=== PATIENT | female | born 1955 | race Caucasian/White ===

== ENCOUNTER 2018-05-02 20:06 | Emergency (ER) | payer MEDICARE, MEDICAID ==
[~2018-05-02] VITALS: Ht 165.1 cm; Wt 139.3 kg
[2018-05-02] MEDS ORDERED: ASPIRIN 81 MG CHEW (CHILDREN'S ASA) ONE (20:10)
[2018-05-02 20:26] LABS: BASOPHILS % (AUTO) 0 % (0-10); EOSINOPHILS # (AUTO) 0.3 10^3/uL (0.0-0.3); EOSINOPHILS % (AUTO) 3 % (0-10); HEMATOCRIT 39 % (35-52); HEMOGLOBIN 12.2 G/DL (11.5-16.0); LYMPHOCYTES # (AUTO) 2.5 X 10^3 (1.0-4.0); LYMPHOCYTES % (AUTO) 23 % (12-44); MEAN CORPUSCULAR HEMOGLOBIN 26 PG (25-34); MEAN CORPUSCULAR HGB CONC 31 G/DL (32-36); MEAN CORPUSCULAR VOLUME 84 FL (80-99); MEAN PLATELET VOLUME 9.7 FL (7.4-10.4); MONOCYTES # (AUTO) 0.8 X 10^3 (0.0-1.0); MONOCYTES % (AUTO) 7 % (0-12); NEUTROPHILS # (AUTO) 7.3 X 10^3 (1.8-7.8); NEUTROPHILS % (AUTO) 67 % (42-75); PLATELET COUNT 249 10^3/uL (130-400); RED BLOOD COUNT 4.62 10^6/uL (4.35-5.85); RED CELL DISTRIBUTION WIDTH 18.7 % (10.0-14.5); WHITE BLOOD COUNT 10.8 10^3/uL (4.3-11.0)
[2018-05-02] MEDS ORDERED: ASPIRIN 81 MG CHEW (CHILDREN'S ASA) PO ONE (20:30)
[2018-05-02] MEDS ORDERED: NITROGLYCERIN 0.4 MG SL TABS BTL 25'S SL PRN (20:30)
--- NOTE | 2018-05-02 20:35 | ED Chest Pain ---
General Chief Complaint: Chest Pain Stated Complaint: CP Source: patient Exam Limitations: no limitations History of Present Illness Date Seen by Provider: May 02, 2018 Time Seen by Provider: 20:05 Initial Comments Here with report of central chest pain that she reports is moderate to significant pressure that radiates to her left arm. Started at about 715 p.m. Denies nausea, vomiting, sweating but does report shortness of air. Does have history of COPD. Used to smoke 4 packs of cigarettes a day was down to 7 cigarettes a day now. Patient is a resident of [facility]. Reports taking medications as directed. Timing/Duration: 1 hour Severity/Quality: moderate, pressure Location: central Radiation: arms (left) Activities at Onset: none Prior CP/Workup: other (unknown) ASA po PUBLIC RELATIONS ASSOCIATE: No NTG SL PUBLIC RELATIONS ASSOCIATE: No Associated Symptoms: No abdominal pain, No back pain, No diaphoresis, No fever/ chills, No nausea/vomiting; shortness of breath; No weakness Allergies and Home Medications Allergies Coded Allergies: Cephalosporins (Verified Allergy, Unknown, 05/02/18) Penicillins (Verified Allergy, Unknown, 05/02/18) Sulfa (Sulfonamide Antibiotics) (Verified Allergy, Unknown, 05/02/18) cephalexin (Verified Allergy, Unknown, 05/02/18) codeine (Verified Allergy, Unknown, 05/02/18) diphenhydramine (Verified Allergy, Unknown, 05/02/18) erythromycin base (Verified Allergy, Unknown, 05/02/18) iodine (Verified Allergy, Unknown, 05/02/18) ketorolac (Verified Allergy, Unknown, 05/02/18) morphine (Verified Allergy, Unknown, 05/02/18) propoxyphene (Verified Allergy, Unknown, 05/02/18) tetracycline (Verified Allergy, Unknown, 05/02/18) Patient Home Medication List Home Medication List Reviewed: Yes Review of Systems Review of Systems Constitutional: see HPI; No chills, No fever EENTM: No Symptoms Reported Respiratory: See HPI Cardiovascular: See HPI Gastrointestinal: See HPI Genitourinary: No Symptoms Reported Musculoskeletal: see HPI, muscle pain; No muscle stiffness Skin: no symptoms reported All Other Systems Reviewed Negative Unless Noted: Yes Past Lfpuidc-Rcnfnq-Wezvid Hx Past Med/Social Hx: Reviewed Nursing Past Med/Soc Hx Patient Social History Alcohol Use: Denies Use Recreational Drug Use: No Smoking Status: Current Everyday Smoker Recent Foreign Travel: No Contact w/Someone Who Travel: No Past Medical History Surgeries: Yes Orthopedic Respiratory: Yes Chronic Bronchitis Cardiac: Yes Deep Vein Thrombosis, High Cholesterol, Hypertension Neurological: Yes Headaches /Migraines Genitourinary: No Gastrointestinal: Yes Gastroesophageal Reflux Musculoskeletal: Yes Endocrine: Yes Hypothyroidsim, Diabetes, Non-Insulin dep Psychosocial: Yes Anxiety, Bipolar Family Medical History Reviewed Nursing Family Hx No Pertinent Family Hx Physical Exam Vital Signs Vital Signs - First Documented 05/02/18 20:06 Pulse 77 Resp 23 B/P (MAP) 138/102 (114) Pulse Ox 95 O2 Delivery Room Air Capillary Refill : Height, Weight, BMI Height: '" Weight: lbs. oz. kg; BMI Method: General Appearance: No Apparent Distress, WD/WN, Obese HEENT: PERRL/EOMI, Pharynx Normal Neck: Non Tender, Supple Respiratory: No Respiratory Distress, Expiration, Wheezing (a few trace bilateral wheezes) Cardiovascular: Regular Rate, Rhythm, No Murmur Gastrointestinal: Non Tender, Soft Extremity: Normal Range of Motion, Non Tender Neurologic/Psychiatric: Alert, Oriented x3 Skin: Normal Color, Warm/Dry Progress/Results/Core Measures Results/Orders Lab Results Laboratory Tests Test 05/02/18 20:18 05/02/18 22:19 Range/Units White Blood Count 10.8 4.3-11.0 10^3/uL Red Blood Count 4.62 4.35-5.85 10^6/uL Hemoglobin 12.2 11.5-16.0 G/DL Hematocrit 39 35-52 % Mean Corpuscular Volume 84 80-99 FL Mean Corpuscular Hemoglobin 26 25-34 PG Mean Corpuscular Hemoglobin Concent 31 L 32-36 G/DL Red Cell Distribution Width 18.7 H 10.0-14.5 % Platelet Count 249 130-400 10^3/uL Mean Platelet Volume 9.7 7.4-10.4 FL Neutrophils (%) (Auto) 67 42-75 % Lymphocytes (%) (Auto) 23 12-44 % Monocytes (%) (Auto) 7 0-12 % Eosinophils (%) (Auto) 3 0-10 % Basophils (%) (Auto) 0 0-10 % Neutrophils # (Auto) 7.3 1.8-7.8 X 10^3 Lymphocytes # (Auto) 2.5 1.0-4.0 X 10^3 Monocytes # (Auto) 0.8 0.0-1.0 X 10^3 Eosinophils # (Auto) 0.3 0.0-0.3 10^3/uL Basophils # (Auto) 0.0 0.0-0.1 10^3/uL Prothrombin Time 13.3 12.2-14.7 SEC INR Comment 1.0 0.8-1.4 Activated Partial Thromboplast Time 28 24-35 SEC D-Dimer 0.69 H 0.00-0.49 UG/ML Sodium Level 142 135-145 MMOL/L Potassium Level 3.8 3.6-5.0 MMOL/L Chloride Level 109 H 98-107 MMOL/L Carbon Dioxide Level 24 21-32 MMOL/L Anion Gap 9 5-14 MMOL/L Blood Urea Nitrogen 9 7-18 MG/DL Creatinine 0.74 0.60-1.30 MG/DL Estimat Glomerular Filtration Rate > 60 BUN/Creatinine Ratio 12 Glucose Level 120 H 70-105 MG/DL Calcium Level 8.9 8.5-10.1 MG/DL Corrected Calcium 9.5 8.5-10.1 MG/DL Magnesium Level 2.2 1.8-2.4 MG/DL Total Bilirubin 0.3 0.1-1.0 MG/DL Aspartate Amino Transf (AST/SGOT) 29 5-34 U/L Alanine Aminotransferase (ALT/SGPT) 25 0-55 U/L Alkaline Phosphatase 141 H 40-136 U/L Myoglobin 26.2 10.0-92.0 NG/ML Troponin I < 0.30 < 0.30 <0.30 NG/ML Total Protein 7.1 6.4-8.2 GM/DL Albumin 3.3 3.2-4.5 GM/DL My Orders Orders - EDEL ANTHONY MD Cbc With Automated Diff (05/02/18 20:10) Magnesium (05/02/18 20:10) Chest 1 View, Ap/Pa Only (05/02/18 20:10) Ekg Tracing (05/02/18 20:10) Cardiac Profile 1 (05/02/18 20:10) Comprehensive Metabolic Panel (05/02/18 20:10) Myoglobin Serum (05/02/18 20:10) Protime With Inr (05/02/18 20:10) Partial Thromboplastin Time (05/02/18 20:10) O2 (05/02/18 20:10) Monitor-Rhythm Ecg Trace Only (05/02/18 20:10) Lipid Panel (05/03/18 06:00) Saline Lock/Iv-Start (05/02/18 20:10) Fibrin Degradation Products (05/02/18 20:10) Aspirin Chewable Tablet (Baby Aspirin Ch (05/02/18 20:10) Aspirin Chewable Tablet (Baby Aspirin Ch (05/02/18 20:30) Nitroglycerin 0.4 Mg Btl 25's (Nitrostat (05/02/18 20:30) Fentanyl Injection (Sublimaze Injection (05/02/18 20:53) Fentanyl Injection (Sublimaze Injection (05/02/18 21:00) Fentanyl Injection (Sublimaze Injection (05/02/18 22:14) Troponin I (05/02/18 22:14) Ekg Tracing (05/02/18 22:14) Medications Given in ED Current Medications Medications Dose Ordered Sig/Rufus Route Start Time Stop Time Status Last Admin Dose Admin Aspirin 324 mg ONCE ONCE PO 05/02/18 20:30 05/02/18 20:31 DC 05/02/18 20:13 324 MG Fentanyl Citrate 50 mcg ONCE ONCE IVP 05/02/18 21:00 05/02/18 21:01 DC 05/02/18 21:10 50 MCG Nitroglycerin 0.4 mg UD PRN SL 05/02/18 20:30 05/02/18 20:33 0.4 MG Vital Signs/I&O 05/02/18 20:06 Pulse 77 Resp 23 B/P (MAP) 138/102 (114) Pulse Ox 95 O2 Delivery Room Air Progress Progress Note : Progress Note Seen and evaluated. IV by EMS. Labs, EKG and chest x-ray ordered. ASA 324 mg by mouth ordered. Patient has stated aspirin intolerance that makes her stomach upset if she takes too long but not a true allergy. Nitroglycerin sublingual ordered for chest pain. Monitor patient. 2225: Patient did receive fentanyl earlier and a repeat fentanyl which appears to be in more for overall body aches. Overall she feels normal and back to normal health now. Patient does report that she did have heart With Dr. Suggs last year that was negative and has negative stress test as well. No significant findings on EKG or repeat labs. Discharged back to assisted with return precautions. Patient verbalize understanding instructions and agreement with plan. Initial ECG Impression Date: May 02, 2018 Initial ECG Impression Time: 20:08 Initial ECG Rate: 78 Initial ECG Rhythm: Normal Sinus Initial ECG Impression: Normal Initial ECG Comparisson: No Previous ECG Available Comment Sinus rhythm with normal axis. No evidence of ST elevation [place]. No previous available for comparison. Interpreted by me. EKG : EKG Time: 22:25 Rate: 73 Rhythm: Normal Sinus Intervals: Normal ECG Comparisson: Unchanged ECG Impression: Normal Comment Sinus rhythm with normal axis. No evidence of ST elevation [place]. Unchanged from previous. Interpreted by me. Diagnostic Imaging Diagonstic Imaging: Xray Plain Films/CT/US/NM/MRI: chest Comments No acute findings Reviewed: Reviewed by Me Departure Impression Primary Impression: Chest pain Qualified Codes: R07.9 - Chest pain, unspecified Disposition: 01 HOME, SELF-CARE Condition: Against Medical Advice Departure-Patient Inst. Decision time for Depature: 23:02 Patient Instructions: Chest Pain (DC) Add. Discharge Instructions: All discharge instructions reviewed with patient and/or family. Voiced understanding. Continue home medications as previously prescribed. You should follow-up with your early next week. You should follow up with your advance agent next week as well. Call for appointment. Return for worse pain, fever, vomiting, weakness, breathing problems or other concerns as needed. EDEL ANTHONY MD May 02, 2018 20:35
[2018-05-02 20:36] LABS: PROTHROMBIN TIME PATIENT 13.3 SEC (12.2-14.7)
[2018-05-02 20:41] LABS: ALANINE AMINOTRANSFERASE 25 U/L (0-55); ALBUMIN 3.3 GM/DL (3.2-4.5); ALKALINE PHOSPHATASE 141 U/L (40-136); BILIRUBIN,TOTAL 0.3 MG/DL (0.1-1.0); BUN/CREATININE RATIO 12; CALCIUM 8.9 MG/DL (8.5-10.1); CARBON DIOXIDE 24 MMOL/L (21-32); CHLORIDE 109 MMOL/L (98-107); CREATININE SERUM 0.74 MG/DL (0.60-1.30); GFR ESTIMATED > 60; GLUCOSE 120 MG/DL (70-105); MAGNESIUM 2.2 MG/DL (1.8-2.4); POTASSIUM 3.8 MMOL/L (3.6-5.0); SODIUM 142 MMOL/L (135-145); TOTAL PROTEIN 7.1 GM/DL (6.4-8.2)
--- NOTE | 2018-05-02 20:44 | Diagnostic Imaging Report ---
INDICATION: A 62-year-old female with shortness of breath and chest pain. COMPARISONS: None FINDINGS: Single view of the chest shows normal heart, pleura, and diaphragms. There is some mild central venous congestion. There is a few scattered alveolar infiltrates with some perihilar atelectatic infiltrates. Some discoid type atelectasis is seen in the right lower lobe. There is no large consolidations. There is no effusion or pneumothorax. The film is slightly underpenetrated. IMPRESSION: Mild congestive heart failure accentuated by the portable technique. There are superimposed scattered atelectatic type infiltrates but no significant consolidations. Dictated by: Dictated on workstation # [id number]
[2018-05-02 20:48] LABS: MYOGLOBIN SERUM 26.2 NG/ML (10.0-92.0)
[2018-05-02] MEDS ORDERED: fentaNYL INJECTION 100 MCG/2 ML AMP IVP STA ×2 (20:53→22:14)
[2018-05-02] MEDS ORDERED: fentaNYL INJECTION 100 MCG/2 ML AMP IVP ONE (21:00)
[2018-05-03 00:07] VITALS: BP 123/65
== END 2018-05-03 00:07 | disposition home or self-care (01) ==
LOC: ER 20:10
DX: R07.89 Other chest pain (principal); J44.9 Chronic obstructive pulmonary disease, unspecified; E78.00 Pure hypercholesterolemia, unspecified; I10 Essential (primary) hypertension; G43.909 Migraine, unspecified, not intractable, without status migrainosus; K21.9 Gastro-esophageal reflux disease without esophagitis; E03.9 Hypothyroidism, unspecified; F41.9 Anxiety disorder, unspecified; E11.9 Type 2 diabetes mellitus without complications; F31.9 Bipolar disorder, unspecified; F17.210 Nicotine dependence, cigarettes, uncomplicated; Z86.718 Personal history of other venous thrombosis and embolism; Z88.0 Allergy status to penicillin; Z88.2 Allergy status to sulfonamides; Z88.5 Allergy status to narcotic agent; Z91.041 Radiographic dye allergy status; Z88.8 Allergy status to other drugs, medicaments and biological substances; Z88.1 Allergy status to other antibiotic agents
CPT/HCPCS: 36415; 71045; 80053; 83735; 83874; 84484; 85025; 85379; 85610; 85730; 93005; 93041; 96374; 96376

== ENCOUNTER 2018-05-05 19:54 | Emergency (ER) | payer MEDICARE, MEDICAID ==
[~2018-05-05] VITALS: Ht 165.1 cm; Wt 139.3 kg
[2018-05-05] MEDS ORDERED: HYDROcodone/APAP 5 MG/325 MG (LORTAB) TAB PO ONE (20:15)
--- NOTE | 2018-05-05 20:36 | Diagnostic Imaging Report ---
EXAMINATION: Right knee radiographs, 3 views. COMPARISON: None. HISTORY: 62-year-old female, knee pain. FINDINGS: There is a right total knee prosthesis. The hardware appears intact. There is no periprosthetic lucency. There is no knee joint effusion. There is degenerative type enthesophyte formation at the insertion of the distal quadriceps tendon. There is no identified acute fracture. The bones appear somewhat demineralized. IMPRESSION: 1. Intact right total hip prosthesis without identified complication. 2. No otherwise identified acute bony abnormality. 3. The bones appear demineralized. Dictated by: Dictated on workstation # [id number]
--- NOTE | 2018-05-05 20:55 | ED Lower Extremity ---
General Chief Complaint: Lower Extremity Stated Complaint: L KNEE PAIN Nursing Triage Note: PRESENTS VIA EMS AFTER UNWITNESSED FALL IN ROOM AT [facility]. STATES SHE HEARD A "POP" AND IS WORRIED ABOUT THE ARTIFICIAL JOINT IN RIGHT KNEE. Nursing Sepsis Screen: No Definite Risk Source: patient, EMS Exam Limitations: no limitations History of Present Illness Date Seen by Provider: May 05, 2018 Time Seen by Provider: 19:55 Initial Comments Patient is a 62-year-old female who was brought to the emergency room by [facility] for an unwitnessed fall and right knee pain that occurred in her room at [facility]. The patient reports that she heard a pop and she is concerned with the artificial joint in her right knee. She denies hitting her head when she fell. Onset: just prior to arrival Pain/Injury Location: right knee Method of Injury: fell Modifying Factors: Worse With Movement Allergies and Home Medications Allergies Coded Allergies: Cephalosporins (Verified Allergy, Unknown, 05/02/18) Penicillins (Verified Allergy, Unknown, 05/02/18) Sulfa (Sulfonamide Antibiotics) (Verified Allergy, Unknown, 05/02/18) cephalexin (Verified Allergy, Unknown, 05/02/18) codeine (Verified Allergy, Unknown, 05/02/18) diphenhydramine (Verified Allergy, Unknown, 05/02/18) erythromycin base (Verified Allergy, Unknown, 05/02/18) iodine (Verified Allergy, Unknown, 05/02/18) ketorolac (Verified Allergy, Unknown, 05/02/18) morphine (Verified Allergy, Unknown, 05/02/18) propoxyphene (Verified Allergy, Unknown, 05/02/18) tetracycline (Verified Allergy, Unknown, 05/02/18) Patient Home Medication List Home Medication List Reviewed: Yes Review of Systems Constitutional: see HPI; No chills, No fever Musculoskeletal: see HPI, joint pain (right knee) All Other Systems Reviewed Negative Unless Noted: Yes Past Bsqxnbt-Ecluhm-Gvqyfw Hx Past Med/Social Hx: Reviewed Nursing Past Med/Soc Hx Patient Social History Alcohol Use: Denies Use Recreational Drug Use: No Smoking Status: Current Someday Smoker Recent Foreign Travel: No Contact w/Someone Who Travel: No Recent Infectious Disease Expo: No Recent Hopitalizations: No Seasonal Allergies Seasonal Allergies: No Past Medical History Surgeries: Yes Orthopedic Respiratory: Yes Chronic Bronchitis Cardiac: Yes Deep Vein Thrombosis, High Cholesterol, Hypertension Neurological: Yes Headaches /Migraines Genitourinary: No Gastrointestinal: Yes Gastroesophageal Reflux Musculoskeletal: Yes Endocrine: Yes Hypothyroidsim, Diabetes, Non-Insulin dep Psychosocial: Yes Anxiety, Bipolar Family Medical History Reviewed Nursing Family Hx No Pertinent Family Hx Physical Exam Vital Signs Capillary Refill : Less Than 3 Seconds Height, Weight, BMI Height: 5'5.00" Weight: 307lbs. oz. 139.360062ct; BMI Method:Stated General Appearance: WD/WN, no apparent distress Cardiovascular: normal peripheral pulses, regular rate, rhythm, no edema, no gallop, no JVD, no murmur Respiratory: chest non-tender, lungs clear, normal breath sounds, no respiratory distress, no accessory muscle use Knees: left knee non-tender; bilateral knee normal inspection; left knee normal range of motion, left knee no evidence of injury; right knee pain Neurologic/Tendon: normal sensation, normal motor functions, normal tendon functions, responds to pain Neurologic/Psychiatric: alert, normal mood/affect, oriented x 3 Skin: normal color, warm/dry Progress/Results/Core Measures Results/Orders My Orders Orders - TAM EPPERSON Knee, Right, 3 Views (05/05/18 19:58) Hydrocodone/Apap 5/325 Tablet (Lortab 5 (05/05/18 20:15) Medications Given in ED Vital Signs/I&O Blood Pressure Mean: 95 Progress Progress Note : Time: 21:00 Progress Note I have seen and evaluated the patient. I have addressed her pain. She was able to ambulate with minimal pain and without difficulty. She agrees with plans for discharge, transfer follow-up with Dr. Hutchison, return precautions are given. Diagnostic Imaging Diagonstic Imaging: Xray Plain Films/CT/US/NM/MRI: knee Comments NAME: CARY SHIN Daniel OROURKE REC#: [id number] PT STATUS: REG ER : 1955 PHYSICIAN: TAM EPPERSON ADMIT DATE: 05/05/18/ER Draft Date of Exam:05/05/18 KNEE, RIGHT, 3 VIEWS EXAMINATION: Right knee radiographs, 3 views. COMPARISON: None. HISTORY: 62-year-old female, knee pain. FINDINGS: There is a right total knee prosthesis. The hardware appears intact. There is no periprosthetic lucency. There is no knee joint effusion. There is degenerative type enthesophyte formation at the insertion of the distal quadriceps tendon. There is no identified acute fracture. The bones appear somewhat demineralized. IMPRESSION: 1. Intact right total hip prosthesis without identified complication. 2. No otherwise identified acute bony abnormality. 3. The bones appear demineralized. Dictated on workstation # [id number] Dict: 05/05/182026 Trans: 05/05/182034 [facility] [id number] Interpreted by: KATTY MORENO MD Electronically signed by: Reviewed: Reviewed by Me Departure Impression Primary Impression: Knee pain Disposition: HOME, SELF-CARE Condition: Stable/Unchanged Departure-Patient Inst. Decision time for Depature: 21:01 Referrals: ROSI HUTCHISON DO (PCP/Family) Primary Care Physician Patient Instructions: Knee Sprain (DC) Add. Discharge Instructions: Continue your home medications as previously prescribed. Follow-up with Dr. Hutchison within 1 week for recheck. Return back to the emergency room for any worsening symptoms or concerns as needed. All discharge instructions reviewed with patient and/or family. Voiced understanding. TAM EPPERSON May 05, 2018 20:55
[2018-05-05 21:12] VITALS: BP 141/73
== END 2018-05-05 21:14 | disposition home or self-care (01) ==
LOC: EDUNIT# 19:54 → ER 19:57
DX: M25.562 Pain in left knee (principal); E78.00 Pure hypercholesterolemia, unspecified; I10 Essential (primary) hypertension; G43.909 Migraine, unspecified, not intractable, without status migrainosus; K21.9 Gastro-esophageal reflux disease without esophagitis; E11.9 Type 2 diabetes mellitus without complications; F41.9 Anxiety disorder, unspecified; F32.9 Major depressive disorder, single episode, unspecified; E03.9 Hypothyroidism, unspecified; F17.200 Nicotine dependence, unspecified, uncomplicated; Z86.718 Personal history of other venous thrombosis and embolism; Z88.1 Allergy status to other antibiotic agents; Z88.0 Allergy status to penicillin; Z88.5 Allergy status to narcotic agent; Z91.041 Radiographic dye allergy status; Z88.8 Allergy status to other drugs, medicaments and biological substances; Z88.2 Allergy status to sulfonamides; W19.XXXA Unspecified fall, initial encounter; X50.1XXA Overexertion from prolonged static or awkward postures, initial encounter; Y92.199 Unspecified place in other specified residential institution as the place of occurrence of the external cause
CPT/HCPCS: 73562

== ENCOUNTER 2018-05-10 19:08 | Emergency (ER) | payer MEDICARE, MEDICAID ==
[~2018-05-10] VITALS: Ht 165.1 cm; Wt 136.5 kg
[2018-05-10 19:25] LABS: BASOPHILS # (AUTO) 0.1 10^3/uL (0.0-0.1); BASOPHILS % (AUTO) 1 % (0-10); EOSINOPHILS # (AUTO) 0.4 10^3/uL (0.0-0.3); EOSINOPHILS % (AUTO) 4 % (0-10); HEMATOCRIT 38 % (35-52); HEMOGLOBIN 11.8 G/DL (11.5-16.0); LYMPHOCYTES # (AUTO) 2.5 X 10^3 (1.0-4.0); LYMPHOCYTES % (AUTO) 26 % (12-44); MEAN CORPUSCULAR HEMOGLOBIN 27 PG (25-34); MEAN CORPUSCULAR HGB CONC 31 G/DL (32-36); MEAN CORPUSCULAR VOLUME 85 FL (80-99); MEAN PLATELET VOLUME 9.7 FL (7.4-10.4); MONOCYTES # (AUTO) 0.9 X 10^3 (0.0-1.0); MONOCYTES % (AUTO) 9 % (0-12); NEUTROPHILS % (AUTO) 61 % (42-75); PLATELET COUNT 236 10^3/uL (130-400); RED BLOOD COUNT 4.42 10^6/uL (4.35-5.85); RED CELL DISTRIBUTION WIDTH 18.6 % (10.0-14.5); WHITE BLOOD COUNT 9.9 10^3/uL (4.3-11.0)
[2018-05-10] MEDS ORDERED: fentaNYL INJECTION 100 MCG/2 ML AMP IVP ONE ×2 (19:30→20:15)
[2018-05-10 19:43] LABS: ALANINE AMINOTRANSFERASE 21 U/L (0-55); ALBUMIN 3.2 GM/DL (3.2-4.5); ALKALINE PHOSPHATASE 126 U/L (40-136); BILIRUBIN,TOTAL 0.2 MG/DL (0.1-1.0); BUN/CREATININE RATIO 16; CALCIUM 8.7 MG/DL (8.5-10.1); CARBON DIOXIDE 20 MMOL/L (21-32); CHLORIDE 111 MMOL/L (98-107); CREATININE SERUM 0.69 MG/DL (0.60-1.30); GFR ESTIMATED > 60; GLUCOSE 161 MG/DL (70-105); POTASSIUM 3.8 MMOL/L (3.6-5.0); SODIUM 141 MMOL/L (135-145); TOTAL PROTEIN 6.7 GM/DL (6.4-8.2)
--- NOTE | 2018-05-10 19:52 | Diagnostic Imaging Report ---
PROCEDURE: CT head and CT cervical spine without contrast. TECHNIQUE: Multiple contiguous axial images were obtained through the brain and cervical spine without the use of intravenous contrast. Sagittal and coronal reformations through the cervical spine were then performed. INDICATION: Syncope with fall. CT head: No hemorrhage, edema or mass effect is found. The basilar cisterns are patent. There is no sulcal effacement. There is parenchymal calcifications in the right thalamus as a chronic finding. No calvarial fracture deformity. No acute extra-axial fluid collection. No pneumocephalus. The sinuses nonacute with previous surgical resection of the medial maxillary grimes and ethmoidectomies. CT cervical spine: Body heights maintained, the alignment anatomic. The spinal canal patent. Facet relationships nonacute. No fracture or paravertebral hematoma and no convincing evidence for a substantial degree of stenosis. IMPRESSION: CT head: No hemorrhage, fracture or acute finding. Chronic parenchymal calcifications along the right thalamus anteroinferiorly noted. No posttraumatic sequelae. CT cervical spine: No fracture or traumatic malalignment. Dictated by: Dictated on workstation # [id number]
--- NOTE | 2018-05-10 19:53 | ED Fall/Injury ---
General Chief Complaint: Trauma-Non Activation Stated Complaint: GENERAL Nursing Triage Note: pt states "blacked out" fall. pt verbalized hit head on air conditoner. states neck and knee pain. Source: patient Exam Limitations: no limitations History of Present Illness Date Seen by Provider: May 10, 2018 Time Seen by Provider: 19:51 Initial Comments To ER with reports of having blacked out. She states that she stood up from her wheelchair to get into her electric chair and upon standing she collapsed to the floor after everything went black. She struck her head on the air conditioner. She is on Eliquis. She complains of head neck and left knee pain. Occurred: just prior to arrival Severity: moderate Injuries/Pain Location: head, neck, lower extremity Associated Symptoms (Fall): Headache, Neck Pain Allergies and Home Medications Allergies Coded Allergies: Cephalosporins (Verified Allergy, Unknown, 05/02/18) Penicillins (Verified Allergy, Unknown, 05/02/18) Sulfa (Sulfonamide Antibiotics) (Verified Allergy, Unknown, 05/02/18) cephalexin (Verified Allergy, Unknown, 05/02/18) codeine (Verified Allergy, Unknown, 05/02/18) diphenhydramine (Verified Allergy, Unknown, 05/02/18) erythromycin base (Verified Allergy, Unknown, 05/02/18) iodine (Verified Allergy, Unknown, 05/02/18) ketorolac (Verified Allergy, Unknown, 05/02/18) morphine (Verified Allergy, Unknown, 05/02/18) propoxyphene (Verified Allergy, Unknown, 05/02/18) tetracycline (Verified Allergy, Unknown, 05/02/18) Patient Home Medication List Home Medication List Reviewed: Yes Review of Systems Review of Systems Constitutional: see HPI Eyes: No Symptoms Reported Ears, Nose, Mouth, Throat: no symptoms reported Respiratory: no symptoms reported Cardiovascular: no symptoms reported Genitourinary: no symptoms reported Musculoskeletal: no symptoms reported Skin: no symptoms reported Psychiatric/Neurological: Headache Past Yyrqohp-Cdwlfh-[place]cau Hx Patient Social History Recent Foreign Travel: No Contact w/Someone Who Travel: No Recent Infectious Disease Expo: No Recent Hopitalizations: No Seasonal Allergies Seasonal Allergies: No Past Medical History Surgeries: Yes Orthopedic Respiratory: Yes Chronic Bronchitis Cardiac: Yes Deep Vein Thrombosis, High Cholesterol, Hypertension Neurological: Yes Headaches /Migraines Genitourinary: No Gastrointestinal: Yes Gastroesophageal Reflux Musculoskeletal: Yes Endocrine: Yes Hypothyroidsim, Diabetes, Non-Insulin dep Psychosocial: Yes Anxiety, Bipolar Family Medical History No Pertinent Family Hx Physical Exam Vital Signs Vital Signs - First Documented 05/10/18 19:18 Temp 98.0 Pulse 88 Resp 20 B/P (MAP) 170/95 (120) Pulse Ox 95 O2 Delivery Room Air Capillary Refill : Less Than 3 Seconds Height, Weight, BMI Height: 5'5.00" Weight: 301lbs. oz. 136.338827zh; BMI Method:Stated General Appearance: WD/WN, no apparent distress HEENT: PERRL/EOMI, normal ENT inspection Neck: full range of motion, tender midline, other (she is in a rigid cervical collar upon arrival to ER) Respiratory: normal breath sounds, no respiratory distress, no accessory muscle use Gastrointestinal: normal bowel sounds, non tender Extremities: normal range of motion, non-tender Neurologic/Psychiatric: alert, normal mood/affect, oriented x 3 Skin: normal color, warm/dry Aris Coma Score Best Eye Response: (4) Open Spontaneously Best Verbal Response: (5) Oriented Best Motor Response: (6) Obeys Commands [place] Total: 15 Progress/Results/Core Measures Results/Orders Lab Results Laboratory Tests Test 05/10/18 19:10 Range/Units White Blood Count 9.9 4.3-11.0 10^3/uL Red Blood Count 4.42 4.35-5.85 10^6/uL Hemoglobin 11.8 11.5-16.0 G/DL Hematocrit 38 35-52 % Mean Corpuscular Volume 85 80-99 FL Mean Corpuscular Hemoglobin 27 25-34 PG Mean Corpuscular Hemoglobin Concent 31 L 32-36 G/DL Red Cell Distribution Width 18.6 H 10.0-14.5 % Platelet Count 236 130-400 10^3/uL Mean Platelet Volume 9.7 7.4-10.4 FL Neutrophils (%) (Auto) 61 42-75 % Lymphocytes (%) (Auto) 26 12-44 % Monocytes (%) (Auto) 9 0-12 % Eosinophils (%) (Auto) 4 0-10 % Basophils (%) (Auto) 1 0-10 % Neutrophils # (Auto) 6.0 1.8-7.8 X 10^3 Lymphocytes # (Auto) 2.5 1.0-4.0 X 10^3 Monocytes # (Auto) 0.9 0.0-1.0 X 10^3 Eosinophils # (Auto) 0.4 H 0.0-0.3 10^3/uL Basophils # (Auto) 0.1 0.0-0.1 10^3/uL Sodium Level 141 135-145 MMOL/L Potassium Level 3.8 3.6-5.0 MMOL/L Chloride Level 111 H 98-107 MMOL/L Carbon Dioxide Level 20 L 21-32 MMOL/L Anion Gap 10 5-14 MMOL/L Blood Urea Nitrogen 11 7-18 MG/DL Creatinine 0.69 0.60-1.30 MG/DL Estimat Glomerular Filtration Rate > 60 BUN/Creatinine Ratio 16 Glucose Level 161 H 70-105 MG/DL Calcium Level 8.7 8.5-10.1 MG/DL Corrected Calcium 9.3 8.5-10.1 MG/DL Total Bilirubin 0.2 0.1-1.0 MG/DL Aspartate Amino Transf (AST/SGOT) 20 5-34 U/L Alanine Aminotransferase (ALT/SGPT) 21 0-55 U/L Alkaline Phosphatase 126 40-136 U/L Total Protein 6.7 6.4-8.2 GM/DL Albumin 3.2 3.2-4.5 GM/DL My Orders Orders - PRIYA ROUSE APRN Cbc With Automated Diff (05/10/18 19:19) Comprehensive Metabolic Panel (05/10/18 19:19) Iv Heplock-Insert (Order) (05/10/18 19:19) Ua Culture If Indicated (05/10/18 19:19) Ct Head/Cervical Spine Wo (05/10/18 19:19) Knee, Left, 3 Views (05/10/18 19:19) Fentanyl Injection (Sublimaze Injection (05/10/18 19:30) Fentanyl Injection (Sublimaze Injection (05/10/18 20:15) Vital Signs/I&O 05/10/18 19:18 Temp 98.0 Pulse 88 Resp 20 B/P (MAP) 170/95 (120) Pulse Ox 95 O2 Delivery Room Air Blood Pressure Mean: 120 Departure Communication (Admissions) 2002-cervical collar removed at this time after reviewing the CT report. Impression Primary Impression: Fall Additional Impressions: Orthostatic syncope Cervical sprain Disposition: HOME, SELF-CARE Condition: Stable Departure-Patient Inst. Decision time for Depature: 20:03 Referrals: ROSI HUTCHISON DO (PCP/Family) Primary Care Physician Patient Instructions: Cervical Muscle Strain, Minor Head Injury Add. Discharge Instructions: 1. Return to ER for any concerns 2. Follow-up with your doctor next week 3. All discharge instructions reviewed with patient and/or family. Voiced understanding. PRIYA ROUSE TEST [employer]ING [employer]IEF May 10, 2018 19:53
--- NOTE | 2018-05-10 19:59 | Diagnostic Imaging Report ---
INDICATION: Syncope with fall. FINDINGS: There is severe tricompartmental osteoarthritis of the knee. Lateral radiograph showed no evidence for joint effusion, the knee was held in near 90 degree flexion in the lateral view. The joint space narrowing, osteophytes and articular sclerosis involves all 3 compartments greatest at the medial tibiofemoral and patellofemoral spaces. IMPRESSION: Severe tricompartmental osteoarthritis but no fracture could be identified. Dictated by: Dictated on workstation # [id number]
[2018-05-10 20:55] LABS: BILIRUBIN,URINE NEGATIVE (NEGATIVE); CLARITY,URINE CLEAR; COLOR,URINE YELLOW; GLUCOSE, URINE (UA) NEGATIVE (NEGATIVE); KETONES,URINE NEGATIVE (NEGATIVE); LEUKOCYTE ESTERASE ,URINE NEGATIVE (NEGATIVE); NITRITE,URINE NEGATIVE (NEGATIVE); PH,URINE 7 (5-9); PROTEIN,URINE NEGATIVE (NEGATIVE); UROBILINOGEN,URINE 1 MG/DL (NORMAL)
[2018-05-10 21:09] LABS: SQUAMOUS EPITHELIAL CELL,UR 0-2 /HPF
[2018-05-10] MEDS ORDERED: ACETAMINOPHEN 500 MG TAB (TYLENOL) PO ONE (21:45)
[2018-05-10 21:52] VITALS: BP 143/74
== END 2018-05-10 21:49 | disposition home or self-care (01) ==
LOC: EDUNIT# 19:08 → ER 19:09
DX: S16.1XXA Strain of muscle, fascia and tendon at neck level, initial encounter (principal); R55 Syncope and collapse; M25.562 Pain in left knee; E78.00 Pure hypercholesterolemia, unspecified; I10 Essential (primary) hypertension; G43.909 Migraine, unspecified, not intractable, without status migrainosus; K21.9 Gastro-esophageal reflux disease without esophagitis; E11.9 Type 2 diabetes mellitus without complications; R40.2142 Coma scale, eyes open, spontaneous, at arrival to emergency department; R40.2252 Coma scale, best verbal response, oriented, at arrival to emergency department; R40.2362 Coma scale, best motor response, obeys commands, at arrival to emergency department; E03.9 Hypothyroidism, unspecified; Z86.718 Personal history of other venous thrombosis and embolism; Z79.01 Long term (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 of anticoagulants; Z88.0 Allergy status to penicillin; Z88.2 Allergy status to sulfonamides; Z88.1 Allergy status to other antibiotic agents; Z88.6 Allergy status to analgesic agent; Z88.4 Allergy status to anesthetic agent; Z88.8 Allergy status to other drugs, medicaments and biological substances; Z88.5 Allergy status to narcotic agent; V00.811A Fall from moving wheelchair (powered), initial encounter; W22.09XA Striking against other stationary object, initial encounter
CPT/HCPCS: 36415; 70450; 72125; 73562; 80053; 81000; 85025; 96374; 96376

== ENCOUNTER 2018-05-11 20:55 | Emergency (ER) | payer MEDICARE, MEDICAID ==
[~2018-05-11] VITALS: Ht 165.1 cm; Wt 136.5 kg
--- NOTE | 2018-05-11 21:07 | ED Neck-Back Pain/Injury ---
General Chief Complaint: Head/Cervical Problems Stated Complaint: NECK PAIN Source of Information: Patient, EMS Exam Limitations: No Limitations History of Present Illness Date Seen by Provider: May 11, 2018 Time Seen by Provider: 20:55 Initial Comments 62-year-old female who was brought to the emergency room by [facility] from [facility] to the emergency room with complaints of neck sprain and shadows around objects in her visual field. She reports that yesterday she was brought to the emergency room for a fall in which she hit that heating unit in her room with her head. She is on Eliquis. Immediately upon arrival to the emergency room by EMS she requested that the nursing staff started an IV and give her pain medication. Location: C-Spine Timing/Duration: 24 Hours Severity: Mild Pain/Injury Location: Head, Neck Method of Injury: Fall Associated Symptoms: denies symptoms Allergies and Home Medications Allergies Coded Allergies: Cephalosporins (Verified Allergy, Unknown, 05/02/18) Penicillins (Verified Allergy, Unknown, 05/02/18) Sulfa (Sulfonamide Antibiotics) (Verified Allergy, Unknown, 05/02/18) cephalexin (Verified Allergy, Unknown, 05/02/18) codeine (Verified Allergy, Unknown, 05/02/18) diphenhydramine (Verified Allergy, Unknown, 05/02/18) erythromycin base (Verified Allergy, Unknown, 05/02/18) iodine (Verified Allergy, Unknown, 05/02/18) ketorolac (Verified Allergy, Unknown, 05/02/18) morphine (Verified Allergy, Unknown, 05/02/18) propoxyphene (Verified Allergy, Unknown, 05/02/18) tetracycline (Verified Allergy, Unknown, 05/02/18) Patient Home Medication List Home Medication List Reviewed: Yes Review of Systems Constitutional: see HPI; No chills, No fever Musculoskeletal: see HPI, neck pain Psychiatric/Neurological: No Symptoms Reported, See HPI, Other (seeing shadows) All Other Systems Reviewed Negative Unless Noted: Yes Past Xcuggww-Eobxav-Vdsetj Hx Past Med/Social Hx: Reviewed Nursing Past Med/Soc Hx Patient Social History Alcohol Use: Denies Use Recreational Drug Use: No Recent Foreign Travel: No Contact w/Someone Who Travel: No Recent Hopitalizations: No Seasonal Allergies Seasonal Allergies: No Past Medical History Surgeries: Yes Orthopedic Respiratory: Yes Chronic Bronchitis Cardiac: Yes Deep Vein Thrombosis, High Cholesterol, Hypertension Neurological: Yes Headaches /Migraines Genitourinary: No Gastrointestinal: Yes Gastroesophageal Reflux Musculoskeletal: Yes Endocrine: Yes Hypothyroidsim, Diabetes, Non-Insulin dep Psychosocial: Yes Anxiety, Bipolar Family Medical History Reviewed Nursing Family Hx No Pertinent Family Hx Physical Exam Vital Signs Vital Signs - First Documented 05/11/18 05/11/18 20:55 22:46 Temp 98.8 Pulse 88 Resp 19 B/P (MAP) 130/73 (92) Pulse Ox 98 Capillary Refill : Height, Weight, BMI Height: 5'5.00" Weight: 301lbs. oz. 136.032481mx; BMI Method:Stated General Appearance: No Apparent Distress, WD/WN HEENT: PERRL/EOMI, TMs Normal, Normal ENT Inspection, Pharynx Normal Neck: Full Range of Motion, Normal Inspection, Non Tender, Supple Cardiovascular: Regular Rate, Rhythm, No Edema, No Gallop, No JVD, No Murmur, Normal Peripheral Pulses Respiratory: Chest Non Tender, Lungs Clear, Normal Breath Sounds, No Accessory Muscle Use, No Respiratory Distress, Accessory Muscle Use Neurologic/Psychiatric: Alert, Oriented x3, No Motor/Sensory Deficits Skin: Normal Color, Warm/Dry Initial NIH-0 Progress/Results/Core Measures Results/Orders My Orders Orders - TAM EPPERSON Ct Head/Cervical Spine Wo (05/11/18 21:01) Acetaminophen Tablet (Tylenol Tablet) (05/11/18 22:30) Medications Given in ED Current Medications Medications Dose Ordered Sig/Rufus Route Start Time Stop Time Status Last Admin Dose Admin Acetaminophen 1,000 mg ONCE ONCE PO 05/11/18 22:30 05/11/18 22:31 DC 05/11/18 22:25 1,000 MG Vital Signs/I&O 05/11/18 05/11/18 20:55 22:46 Temp 98.8 98.8 Pulse 88 88 Resp 19 19 B/P (MAP) 130/73 (92) 130/73 (92) Pulse Ox 98 Progress Progress Note : Time: 21:58 Progress Note I have seen and evaluated the patient. She is asking for narcotic pain medication (fentanyl) because it last for 24 hours. She reports that they gave her fentanyl last night. She has hydrocodone 10/325 at home and she denies taking any of her pain medication as prescribed. She agrees with plans for discharge, plans for close follow-up with Dr. Hutchison, return precautions were given. Diagnostic Imaging Diagonstic Imaging: CT Plain Films/CT/US/NM/MRI: c-spine, head Comments NAME: CARY SHIN [facility] REC#: [id number] PT STATUS: REG ER : 1955 PHYSICIAN: TAM EPPERSON ADMIT DATE: 05/11/18/ER Signed Date of Exam: 05/11/18 CT HEAD/CERVICAL SPINE WO PROCEDURE: CT head and CT cervical spine without contrast. TECHNIQUE: Multiple contiguous axial images were obtained through the brain and cervical spine without the use of intravenous contrast. Sagittal and coronal reformations through the cervical spine were then performed. INDICATION: Dizziness, falls. COMPARISON: 05/10/2018. CT HEAD: Chronic parenchymal calcifications in the right thalamus, unchanged. There is no intracerebral hemorrhage. No findings of focal or generalized cerebral edema. No mass or mass effect. Orbits, sinuses and calvarium appear nonacute. No change from previous exam. CT CERVICAL SPINE: Body heights are maintained. Alignment anatomic. No fracture or paravertebral hematoma. No change from prior. IMPRESSION: 1. CT head: Stable calcifications of right thalamus. No hemorrhage, edema or acute-appearing intracerebral pathology. No change from prior. 2. CT cervical spine: No fracture, traumatic malalignment or high-grade stenosis. No change from prior. Dictated by: Dictated on workstation # [id number] Dict: 05/11/182133 Trans: 05/11/182156 Interpreted by: RUFINO SIDHU Electronically signed by: RUFINO SIDHU 05/11/182156 Departure Impression Primary Impression: Cervical sprain Disposition: 01 HOME, SELF-CARE Condition: Stable/Unchanged Departure-Patient Inst. Decision time for Depature: 21:57 Referrals: ROSI HUTCHISON DO (PCP/Family) Primary Care Physician Patient Instructions: Cervical Muscle Strain (DC) Add. Discharge Instructions: Continue home medications as previously prescribed. Follow-up with her primary care provider within 1 week for recheck. Call first thing tomorrow morning for appointment time. Return back to the emergency room for any worsening symptoms or concerns as needed. All discharge instructions reviewed with patient and/or family. Voiced understanding. TAM EPPERSON May 11, 2018 21:07
--- NOTE | 2018-05-11 21:42 | Diagnostic Imaging Report ---
PROCEDURE: CT head and CT cervical spine without contrast. TECHNIQUE: Multiple contiguous axial images were obtained through the brain and cervical spine without the use of intravenous contrast. Sagittal and coronal reformations through the cervical spine were then performed. INDICATION: Dizziness, falls. COMPARISON: 05/10/2018. CT HEAD: Chronic parenchymal calcifications in the right thalamus, unchanged. There is no intracerebral hemorrhage. No findings of focal or generalized cerebral edema. No mass or mass effect. Orbits, sinuses and calvarium appear nonacute. No change from previous exam. CT CERVICAL SPINE: Body heights are maintained. Alignment anatomic. No fracture or paravertebral hematoma. No change from prior. IMPRESSION: 1. CT head: Stable calcifications of right thalamus. No hemorrhage, edema or acute-appearing intracerebral pathology. No change from prior. 2. CT cervical spine: No fracture, traumatic malalignment or high-grade stenosis. No change from prior. Dictated by: Dictated on workstation # [id number]
[2018-05-11] MEDS ORDERED: ACETAMINOPHEN 500 MG TAB (TYLENOL) PO ONE (22:30)
[2018-05-11 22:46] VITALS: BP 130/73
== END 2018-05-11 22:49 | disposition home or self-care (01) ==
LOC: EDUNIT# 20:55 → ER 20:56
DX: S13.4XXA Sprain of ligaments of cervical spine, initial encounter (principal); E78.00 Pure hypercholesterolemia, unspecified; I10 Essential (primary) hypertension; G43.909 Migraine, unspecified, not intractable, without status migrainosus; K21.9 Gastro-esophageal reflux disease without esophagitis; E03.9 Hypothyroidism, unspecified; E11.9 Type 2 diabetes mellitus without complications; F41.9 Anxiety disorder, unspecified; F32.9 Major depressive disorder, single episode, unspecified; Z88.0 Allergy status to penicillin; Z88.2 Allergy status to sulfonamides; Z88.4 Allergy status to anesthetic agent; Z88.8 Allergy status to other drugs, medicaments and biological substances; Z88.5 Allergy status to narcotic agent; Z88.1 Allergy status to other antibiotic agents; Z91.041 Radiographic dye allergy status; Z79.01 Long term (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 of anticoagulants; Z86.718 Personal history of other venous thrombosis and embolism; W19.XXXA Unspecified fall, initial encounter; W22.09XA Striking against other stationary object, initial encounter
CPT/HCPCS: 70450; 72125

== ENCOUNTER 2018-05-12 18:46 | Emergency (ER) | payer MEDICARE, MEDICAID ==
[~2018-05-12] VITALS: Ht 165.1 cm; Wt 136.5 kg
--- NOTE | 2018-05-12 18:59 | ED Chest Pain ---
General Chief Complaint: Chest Pain Stated Complaint: CHEST PAIN Source: patient Exam Limitations: no limitations History of Present Illness Date Seen by Provider: May 12, 2018 Time Seen by Provider: 18:56 Initial Comments To ER with left-sided chest pain that radiates down the left arm that began at 6 PM earlier today. She has chronic unchanged shortness of breath that is no worse than usual. She feels flushed but has no nausea. No chills. No nausea no vomiting. She just moved to the area from a senior living and [facility]. She moved here during the month of April and this will be her visit to the emergency room for a variety of complaints since moving here. Timing/Duration: constant Severity/Quality: moderate Location: central ASA po HAND MICA PLATE LAYER: No NTG SL HAND MICA PLATE LAYER: No Associated Symptoms: No abdominal pain, No back pain, No diaphoresis, No nausea /vomiting, No shortness of breath Allergies and Home Medications Allergies Coded Allergies: Cephalosporins (Verified Allergy, Unknown, 05/02/18) Penicillins (Verified Allergy, Unknown, 05/02/18) Sulfa (Sulfonamide Antibiotics) (Verified Allergy, Unknown, 05/02/18) aspirin (Verified Allergy, Unknown, 05/12/18) cephalexin (Verified Allergy, Unknown, 05/02/18) codeine (Verified Allergy, Unknown, 05/02/18) diphenhydramine (Verified Allergy, Unknown, 05/02/18) erythromycin base (Verified Allergy, Unknown, 05/02/18) iodine (Verified Allergy, Unknown, 05/02/18) ketorolac (Verified Allergy, Unknown, 05/02/18) morphine (Verified Allergy, Unknown, 05/02/18) propoxyphene (Verified Allergy, Unknown, 05/02/18) tetracycline (Verified Allergy, Unknown, 05/02/18) Patient Home Medication List Home Medication List Reviewed: Yes Review of Systems Review of Systems Constitutional: see HPI EENTM: No Symptoms Reported Respiratory: No Symptoms Reported Cardiovascular: See HPI, Chest Pain; Denies Edema, Denies Irregular Heart Rate , Denies Lightheadedness, Denies Palpitations Gastrointestinal: See HPI; Denies Nausea, Denies Vomiting Genitourinary: No Symptoms Reported Musculoskeletal: no symptoms reported Skin: no symptoms reported Psychiatric/Neurological: No Symptoms Reported Endocrine: No Symptoms Reported Hematologic/Lymphatic: No Symptoms Reported Past Qrqdpzx-Yyxyyt-Kbsrhu Hx Patient Social History Alcohol Use: Denies Use Recreational Drug Use: No Smoking Status: Current Everyday Smoker 2nd Hand Smoke Exposure: Yes Recent Foreign Travel: No Contact w/Someone Who Travel: No Recent Hopitalizations: No Immunizations Up To Date Tetanus Booster (TDap): Unknown Seasonal Allergies Seasonal Allergies: No Past Medical History Surgeries: Yes Orthopedic Respiratory: Yes Chronic Bronchitis Cardiac: Yes Deep Vein Thrombosis, High Cholesterol, Hypertension Neurological: Yes Headaches /Migraines Genitourinary: No Gastrointestinal: Yes Gastroesophageal Reflux Musculoskeletal: Yes Endocrine: Yes Hypothyroidsim, Diabetes, Non-Insulin dep HEENT: No Cancer: No Psychosocial: Yes Anxiety, Bipolar Integumentary: No Family Medical History No Pertinent Family Hx Physical Exam Vital Signs Vital Signs - First Documented 05/12/18 18:50 Pulse Ox 97 O2 Delivery Nasal Cannula O2 Flow Rate 2.00 Capillary Refill : Less Than 3 Seconds Height, Weight, BMI Height: 5'5.00" Weight: 301lbs. oz. 136.673873tf; BMI Method:Stated General Appearance: No Apparent Distress, WD/WN, Obese HEENT: PERRL/EOMI, TMs Normal Neck: Full Range of Motion, Normal Inspection Respiratory: No Accessory Muscle Use, No Respiratory Distress Cardiovascular: Regular Rate, Rhythm, Normal Peripheral Pulses Gastrointestinal: Normal Bowel Sounds, Non Tender, Soft Extremity: Normal Capillary Refill, Normal Inspection Neurologic/Psychiatric: Alert, Oriented x3 Skin: Normal Color, Warm/Dry Progress/Results/Core Measures Results/Orders Lab Results Laboratory Tests Test 05/12/18 18:50 Range/Units White Blood Count 10.6 4.3-11.0 10^3/uL Red Blood Count 4.65 4.35-5.85 10^6/uL Hemoglobin 12.3 11.5-16.0 G/DL Hematocrit 40 35-52 % Mean Corpuscular Volume 85 80-99 FL Mean Corpuscular Hemoglobin 27 25-34 PG Mean Corpuscular Hemoglobin Concent 31 L 32-36 G/DL Red Cell Distribution Width 18.7 H 10.0-14.5 % Platelet Count 248 130-400 10^3/uL Mean Platelet Volume 9.9 7.4-10.4 FL Neutrophils (%) (Auto) 62 42-75 % Lymphocytes (%) (Auto) 26 12-44 % Monocytes (%) (Auto) 8 0-12 % Eosinophils (%) (Auto) 3 0-10 % Basophils (%) (Auto) 0 0-10 % Neutrophils # (Auto) 6.6 1.8-7.8 X 10^3 Lymphocytes # (Auto) 2.7 1.0-4.0 X 10^3 Monocytes # (Auto) 0.9 0.0-1.0 X 10^3 Eosinophils # (Auto) 0.3 0.0-0.3 10^3/uL Basophils # (Auto) 0.0 0.0-0.1 10^3/uL Prothrombin Time 13.6 12.2-14.7 SEC INR Comment 1.0 0.8-1.4 Activated Partial Thromboplast Time 31 24-35 SEC Sodium Level 142 135-145 MMOL/L Potassium Level 4.4 3.6-5.0 MMOL/L Chloride Level 113 H 98-107 MMOL/L Carbon Dioxide Level 21 21-32 MMOL/L Anion Gap 8 5-14 MMOL/L Blood Urea Nitrogen 7 7-18 MG/DL Creatinine 0.72 0.60-1.30 MG/DL Estimat Glomerular Filtration Rate > 60 BUN/Creatinine Ratio 10 Glucose Level 193 H 70-105 MG/DL Calcium Level 8.7 8.5-10.1 MG/DL Corrected Calcium 9.2 8.5-10.1 MG/DL Magnesium Level 2.4 1.8-2.4 MG/DL Total Bilirubin 0.2 0.1-1.0 MG/DL Aspartate Amino Transf (AST/SGOT) 26 5-34 U/L Alanine Aminotransferase (ALT/SGPT) 22 0-55 U/L Alkaline Phosphatase 131 40-136 U/L Myoglobin 23.2 10.0-92.0 NG/ML Troponin I < 0.30 <0.30 NG/ML B-Type Natriuretic Peptide < 10.0 <100.0 PG/ML Total Protein 7.4 6.4-8.2 GM/DL Albumin 3.4 3.2-4.5 GM/DL Lipase 43 8-78 U/L My Orders Orders - PRIYA ROUSE RESEARCH CLERK Cbc With Automated Diff (05/12/18 18:55) Magnesium (05/12/18 18:55) Chest 1 View, Ap/Pa Only (05/12/18 18:55) Ekg Tracing (05/12/18 18:55) Cardiac Profile 1 (05/12/18 18:55) Comprehensive Metabolic Panel (05/12/18 18:55) Myoglobin Serum (05/12/18 18:55) Protime With Inr (05/12/18 18:55) Partial Thromboplastin Time (05/12/18 18:55) O2 (05/12/18 18:55) Monitor-Rhythm Ecg Trace Only (05/12/18 18:55) Lipid Panel (05/13/18 06:00) Aspirin Chewable Tablet (Baby Aspirin Ch (05/12/18 19:00) Saline Lock/Iv-Start (05/12/18 18:55) Lipase (05/12/18 18:55) BNP (05/12/18 18:55) Hydrocodone/Apap 5/325 Tablet (Lortab 5 (05/12/18 19:00) Medications Given in ED Current Medications Medications Dose Ordered Sig/Rufus Route Start Time Stop Time Status Last Admin Dose Admin Acetaminophen/ Hydrocodone Bitart 1 tab ONCE ONCE PO 05/12/18 19:00 05/12/18 19:01 DC 05/12/18 19:29 1 TAB Vital Signs/I&O 05/12/18 05/12/18 05/12/18 05/12/18 18:50 18:51 18:51 19:08 Temp 98.7 98.7 Pulse 88 Resp 18 B/P (MAP) 132/70 (90) Pulse Ox 97 97 O2 Delivery Nasal Cannula Nasal Cannula Nasal Cannula O2 Flow Rate 2.00 2.0 2.0 05/12/18 19:29 Temp 98.7 Initial ECG Impression Date: May 12, 2018 Initial ECG Impression Time: 18:58 Initial ECG Rate: 82 Initial ECG Rhythm: Normal Sinus Initial ECG Intervals: Normal Initial ECG Impression: Nonspecific Changes Comment No ST segment changes. Sinus rhythm no ectopy. Normal intervals. Departure Communication (Admissions) 2009-patient states that she is now having allergic reaction to the hydrocodone that she was given. She states that her tongue feels swollen and she is itching all over. After evaluating her, there is no swelling in the oropharynx, no swelling of the tongue hives. i did offer benadryl but she states that she is allergic to this and would like atarax instead. she asks that since she is allergic to the hydrocodone that she have something through her iv for pain. advised she will have tylenol offered Family Conversation NAME: CARY SHIN [facility] REC#: [id number] PT STATUS: REG ER : 1955 PHYSICIAN: PRIYA ROUSE APRN ADMIT DATE: 05/12/18/ER Draft Date of Exam:05/12/18 CHEST 1 VIEW, AP/PA ONLY INDICATION: Chest pain. FINDINGS: Portable chest. The lungs are well aerated and clear. Heart is not enlarged. There is no pulmonary edema. No hilar adenopathy. No pneumothorax or pleural effusion. IMPRESSION: There has been clearing of pulmonary congestive changes when compared with 05/02/2018. Heart size has returned to normal and the lungs are now clear. Dictated on workstation # [id number] Dict: 05/12/181909 Trans: 05/12/181912 [id number] Interpreted by: JOAQUIN WALSH MD Electronically signed by: [id number] was going to give aspirin patient informs us is allergic to aspirin as well. Please see additional allergies. Impression Primary Impression: Chest pain Disposition: 01 HOME, SELF-CARE Condition: Stable Departure-Patient Inst. Decision time for Depature: 20:10 Referrals: ROSI HUTCHISON DO (PCP/Family) Primary Care Physician Patient Instructions: Chest Pain (DC) Add. Discharge Instructions: 1. You may have itching as an adverse effect of hydrocodone, but you are not allergic to it. Follow-up with Dr. Dr. Hutchison to discuss a different medication to treat her pain. Return to ER for any concerns. PRIYA ROUSE APRN May 12, 2018 18:59
[2018-05-12] MEDS ORDERED: HYDROcodone/APAP 5 MG/325 MG (LORTAB) TAB PO ONE (19:00)
[2018-05-12] MEDS ORDERED: ASPIRIN 81 MG CHEW (CHILDREN'S ASA) PO ONE (19:00)
[2018-05-12 19:01] LABS: BASOPHILS % (AUTO) 0 % (0-10); EOSINOPHILS # (AUTO) 0.3 10^3/uL (0.0-0.3); EOSINOPHILS % (AUTO) 3 % (0-10); HEMATOCRIT 40 % (35-52); HEMOGLOBIN 12.3 G/DL (11.5-16.0); LYMPHOCYTES # (AUTO) 2.7 X 10^3 (1.0-4.0); LYMPHOCYTES % (AUTO) 26 % (12-44); MEAN CORPUSCULAR HEMOGLOBIN 27 PG (25-34); MEAN CORPUSCULAR HGB CONC 31 G/DL (32-36); MEAN CORPUSCULAR VOLUME 85 FL (80-99); MEAN PLATELET VOLUME 9.9 FL (7.4-10.4); MONOCYTES # (AUTO) 0.9 X 10^3 (0.0-1.0); MONOCYTES % (AUTO) 8 % (0-12); NEUTROPHILS # (AUTO) 6.6 X 10^3 (1.8-7.8); NEUTROPHILS % (AUTO) 62 % (42-75); PLATELET COUNT 248 10^3/uL (130-400); RED BLOOD COUNT 4.65 10^6/uL (4.35-5.85); RED CELL DISTRIBUTION WIDTH 18.7 % (10.0-14.5); WHITE BLOOD COUNT 10.6 10^3/uL (4.3-11.0)
[2018-05-12 19:11] LABS: PROTHROMBIN TIME PATIENT 13.6 SEC (12.2-14.7)
--- NOTE | 2018-05-12 19:13 | Diagnostic Imaging Report ---
INDICATION: Chest pain. FINDINGS: Portable chest. The lungs are well aerated and clear. Heart is not enlarged. There is no pulmonary edema. No hilar adenopathy. No pneumothorax or pleural effusion. IMPRESSION: There has been clearing of pulmonary congestive changes when compared with 05/02/2018. Heart size has returned to normal and the lungs are now clear. Dictated by: Dictated on workstation # [id number]
[2018-05-12 19:22] LABS: MYOGLOBIN SERUM 23.2 NG/ML (10.0-92.0)
[2018-05-12 19:23] LABS: ALANINE AMINOTRANSFERASE 22 U/L (0-55); ALBUMIN 3.4 GM/DL (3.2-4.5); ALKALINE PHOSPHATASE 131 U/L (40-136); BILIRUBIN,TOTAL 0.2 MG/DL (0.1-1.0); BUN/CREATININE RATIO 10; CALCIUM 8.7 MG/DL (8.5-10.1); CARBON DIOXIDE 21 MMOL/L (21-32); CHLORIDE 113 MMOL/L (98-107); CREATININE SERUM 0.72 MG/DL (0.60-1.30); GFR ESTIMATED > 60; GLUCOSE 193 MG/DL (70-105); LIPASE 43 U/L (8-78); MAGNESIUM 2.4 MG/DL (1.8-2.4); POTASSIUM 4.4 MMOL/L (3.6-5.0); SODIUM 142 MMOL/L (135-145); TOTAL PROTEIN 7.4 GM/DL (6.4-8.2)
[2018-05-12] MEDS ORDERED: ACETAMINOPHEN 500 MG TAB (TYLENOL) PO ONE (20:15)
[2018-05-12] MEDS ORDERED: hydrOXYzine (VISTARIL) 25 MG CAP PO ONE (20:15)
[2018-05-12 22:06] VITALS: BP 130/76
== END 2018-05-12 22:06 | disposition home or self-care (01) ==
LOC: EDUNIT# 18:46 → ER 18:47
DX: R07.89 Other chest pain (principal); E78.00 Pure hypercholesterolemia, unspecified; I10 Essential (primary) hypertension; G43.909 Migraine, unspecified, not intractable, without status migrainosus; K21.9 Gastro-esophageal reflux disease without esophagitis; E03.9 Hypothyroidism, unspecified; E11.9 Type 2 diabetes mellitus without complications; F41.9 Anxiety disorder, unspecified; F31.9 Bipolar disorder, unspecified; F17.200 Nicotine dependence, unspecified, uncomplicated; Z88.0 Allergy status to penicillin; Z86.718 Personal history of other venous thrombosis and embolism; Z88.2 Allergy status to sulfonamides; Z88.6 Allergy status to analgesic agent; Z88.8 Allergy status to other drugs, medicaments and biological substances; Z88.5 Allergy status to narcotic agent; Z88.1 Allergy status to other antibiotic agents; Z88.4 Allergy status to anesthetic agent; Z91.041 Radiographic dye allergy status
CPT/HCPCS: 36415; 71045; 80053; 83690; 83735; 83874; 83880; 84484; 85025; 85610; 85730; 93005; 93041

== ENCOUNTER 2018-05-23 18:33 | Emergency (ER) | payer MEDICARE, MEDICAID ==
[~2018-05-23] VITALS: Ht 165.1 cm; Wt 138.3 kg
[2018-05-23 18:34] VITALS: BP 107/66
--- NOTE | 2018-05-23 18:40 | ED Chest Pain ---
General Stated Complaint: CHEST PAIN L SIDE Source: patient Exam Limitations: no limitations History of Present Illness Date Seen by Provider: May 23, 2018 Time Seen by Provider: 18:37 Initial Comments To ER with left-sided sharp chest pain that began at 5:15 PM this evening while outside smoking a cigarette. She immediately put the cigarette out and went inside and told the nurse. She has no shortness of breath or nausea. Left anterior chest wall is very tender to palpation. Timing/Duration: 1-3 hours Severity/Quality: moderate Location: central Radiation: other (chest) ASA po SUBSTATION TECHNICIAN: No NTG SL SUBSTATION TECHNICIAN: Yes Associated Symptoms: No shortness of breath Allergies and Home Medications Allergies Coded Allergies: Cephalosporins (Verified Allergy, Unknown, 05/02/18) Penicillins (Verified Allergy, Unknown, 05/02/18) Sulfa (Sulfonamide Antibiotics) (Verified Allergy, Unknown, 05/02/18) aspirin (Verified Allergy, Unknown, 05/12/18) cephalexin (Verified Allergy, Unknown, 05/02/18) codeine (Verified Allergy, Unknown, 05/02/18) diphenhydramine (Verified Allergy, Unknown, 05/02/18) erythromycin base (Verified Allergy, Unknown, 05/02/18) iodine (Verified Allergy, Unknown, 05/02/18) ketorolac (Verified Allergy, Unknown, 05/02/18) morphine (Verified Allergy, Unknown, 05/02/18) propoxyphene (Verified Allergy, Unknown, 05/02/18) tetracycline (Verified Allergy, Unknown, 05/02/18) Patient Home Medication List Home Medication List Reviewed: Yes Review of Systems Review of Systems Constitutional: see HPI EENTM: No Symptoms Reported Respiratory: No Symptoms Reported Cardiovascular: See HPI, Chest Pain Gastrointestinal: No Symptoms Reported Genitourinary: No Symptoms Reported Musculoskeletal: no symptoms reported Skin: no symptoms reported Psychiatric/Neurological: No Symptoms Reported Endocrine: No Symptoms Reported Hematologic/Lymphatic: No Symptoms Reported Past Nykxzwd-Bffwwq-Bcawnm Hx Patient Social History 2nd Hand Smoke Exposure: Yes Recent Hopitalizations: No Immunizations Up To Date Tetanus Booster (TDap): Unknown Seasonal Allergies Seasonal Allergies: No Past Medical History Surgeries: Yes Orthopedic Respiratory: Yes Chronic Bronchitis Cardiac: Yes Deep Vein Thrombosis, High Cholesterol, Hypertension Neurological: Yes Headaches /Migraines Genitourinary: No Gastrointestinal: Yes Gastroesophageal Reflux Musculoskeletal: Yes Endocrine: Yes Hypothyroidsim, Diabetes, Non-Insulin dep HEENT: No Cancer: No Psychosocial: Yes Anxiety, Bipolar Integumentary: No Family Medical History No Pertinent Family Hx Physical Exam Vital Signs Vital Signs - First Documented 05/23/18 18:34 Temp 98.7 Pulse 89 Resp 19 B/P (MAP) 107/66 (80) Pulse Ox 95 O2 Delivery Room Air Capillary Refill : Height, Weight, BMI Height: 5'5.00" Weight: 301lbs. oz. 136.632033px; BMI Method:Stated General Appearance: No Apparent Distress, WD/WN, Obese HEENT: PERRL/EOMI, TMs Normal Neck: Full Range of Motion, Normal Inspection Respiratory: No Accessory Muscle Use, No Respiratory Distress, Other (left chest wall midclavicular line third intercostal space is very tender to palpation. Patient states "yeah, that's where it hurts".) Cardiovascular: Regular Rate, Rhythm, Normal Peripheral Pulses Gastrointestinal: Non Tender, Soft Extremity: Pedal Edema (bilateral lower extremity 2+) Neurologic/Psychiatric: Alert, Oriented x3 Skin: Normal Color, Warm/Dry Progress/Results/Core Measures Results/Orders Lab Results Laboratory Tests Test 05/23/18 18:37 Range/Units White Blood Count 11.1 H 4.3-11.0 10^3/uL Red Blood Count 4.55 4.35-5.85 10^6/uL Hemoglobin 12.3 11.5-16.0 G/DL Hematocrit 39 35-52 % Mean Corpuscular Volume 85 80-99 FL Mean Corpuscular Hemoglobin 27 25-34 PG Mean Corpuscular Hemoglobin Concent 32 32-36 G/DL Red Cell Distribution Width 18.7 H 10.0-14.5 % Platelet Count 261 130-400 10^3/uL Mean Platelet Volume 10.2 7.4-10.4 FL Neutrophils (%) (Auto) 61 42-75 % Lymphocytes (%) (Auto) 27 12-44 % Monocytes (%) (Auto) 9 0-12 % Eosinophils (%) (Auto) 3 0-10 % Basophils (%) (Auto) 0 0-10 % Neutrophils # (Auto) 6.8 1.8-7.8 X 10^3 Lymphocytes # (Auto) 3.0 1.0-4.0 X 10^3 Monocytes # (Auto) 1.0 0.0-1.0 X 10^3 Eosinophils # (Auto) 0.3 0.0-0.3 10^3/uL Basophils # (Auto) 0.1 0.0-0.1 10^3/uL Prothrombin Time 14.6 12.2-14.7 SEC INR Comment 1.1 0.8-1.4 Activated Partial Thromboplast Time 32 24-35 SEC Sodium Level 140 135-145 MMOL/L Potassium Level 3.8 3.6-5.0 MMOL/L Chloride Level 106 98-107 MMOL/L Carbon Dioxide Level 26 21-32 MMOL/L Anion Gap 8 5-14 MMOL/L Blood Urea Nitrogen 10 7-18 MG/DL Creatinine 0.78 0.60-1.30 MG/DL Estimat Glomerular Filtration Rate > 60 BUN/Creatinine Ratio 13 Glucose Level 98 70-105 MG/DL Calcium Level 9.0 8.5-10.1 MG/DL Corrected Calcium 9.3 8.5-10.1 MG/DL Magnesium Level 2.1 1.8-2.4 MG/DL Total Bilirubin 0.4 0.1-1.0 MG/DL Aspartate Amino Transf (AST/SGOT) 29 5-34 U/L Alanine Aminotransferase (ALT/SGPT) 27 0-55 U/L Alkaline Phosphatase 144 H 40-136 U/L Myoglobin 25.1 10.0-92.0 NG/ML Troponin I < 0.30 <0.30 NG/ML B-Type Natriuretic Peptide < 10.0 <100.0 PG/ML Total Protein 7.7 6.4-8.2 GM/DL Albumin 3.6 3.2-4.5 GM/DL My Orders Orders - PRIYA ROUSE APRN Cbc With Automated Diff (05/23/18 18:36) Magnesium (05/23/18 18:36) Chest 1 View, Ap/Pa Only (05/23/18 18:36) Ekg Tracing (05/23/18 18:36) Cardiac Profile 1 (05/23/18 18:36) Comprehensive Metabolic Panel (05/23/18 18:36) Myoglobin Serum (05/23/18 18:36) Protime With Inr (05/23/18 18:36) Partial Thromboplastin Time (05/23/18 18:36) O2 (05/23/18 18:36) Monitor-Rhythm Ecg Trace Only (05/23/18 18:36) Lipid Panel (05/24/18 06:00) Saline Lock/Iv-Start (05/23/18 18:36) BNP (05/23/18 18:36) Acetaminophen Tablet/Caplet (Tylenol T (05/23/18 18:45) Vital Signs/I&O 05/23/18 18:34 Temp 98.7 Pulse 89 Resp 19 B/P (MAP) 107/66 (80) Pulse Ox 95 O2 Delivery Room Air Departure Communication (Admissions) 1935-patient would request some fentanyl at this time because she states that it lasts for 24 hours. She didn't want aspirin initially because it makes her tired but the fentanyl should do just fine for her. Advised her that we should avoid opiates as she has requested opiates by name during each of her prior visits and this raises red flags. Advised her that we should repeat a troponin cardiac marker at the 4 hour jerome to ensure that this is not cardiac event. She states "oh I don't think it's my heart". She would like to sign out AGAINST MEDICAL ADVICE and go back to the custodial. Impression Primary Impression: Chest wall pain Disposition: ADMITTED INPATIENT Condition: Against Medical Advice Departure-Patient Inst. Decision time for Depature: 18:39 Referrals: ROSI HUTCHISON DO (PCP/Family) Primary Care Physician Patient Instructions: Chest Pain (DC) Add. Discharge Instructions: 1. Return to ER for any concerns 2. Call a patient account representative of your choosing next week. A list of local cardiologists has been provided. PRIYA ROUSE APRN May 23, 2018 18:40
[2018-05-23] MEDS ORDERED: ACETAMINOPHEN 325 MG TABLET PO ONE (18:45)
[2018-05-23 18:51] LABS: BASOPHILS # (AUTO) 0.1 10^3/uL (0.0-0.1); BASOPHILS % (AUTO) 0 % (0-10); EOSINOPHILS # (AUTO) 0.3 10^3/uL (0.0-0.3); EOSINOPHILS % (AUTO) 3 % (0-10); HEMATOCRIT 39 % (35-52); HEMOGLOBIN 12.3 G/DL (11.5-16.0); LYMPHOCYTES % (AUTO) 27 % (12-44); MEAN CORPUSCULAR HEMOGLOBIN 27 PG (25-34); MEAN CORPUSCULAR HGB CONC 32 G/DL (32-36); MEAN CORPUSCULAR VOLUME 85 FL (80-99); MEAN PLATELET VOLUME 10.2 FL (7.4-10.4); MONOCYTES % (AUTO) 9 % (0-12); NEUTROPHILS # (AUTO) 6.8 X 10^3 (1.8-7.8); NEUTROPHILS % (AUTO) 61 % (42-75); PLATELET COUNT 261 10^3/uL (130-400); RED BLOOD COUNT 4.55 10^6/uL (4.35-5.85); RED CELL DISTRIBUTION WIDTH 18.7 % (10.0-14.5); WHITE BLOOD COUNT 11.1 10^3/uL (4.3-11.0)
[2018-05-23 19:06] LABS: ALANINE AMINOTRANSFERASE 27 U/L (0-55); ALBUMIN 3.6 GM/DL (3.2-4.5); ALKALINE PHOSPHATASE 144 U/L (40-136); BILIRUBIN,TOTAL 0.4 MG/DL (0.1-1.0); BUN/CREATININE RATIO 13; CARBON DIOXIDE 26 MMOL/L (21-32); CHLORIDE 106 MMOL/L (98-107); CREATININE SERUM 0.78 MG/DL (0.60-1.30); GFR ESTIMATED > 60; GLUCOSE 98 MG/DL (70-105); MAGNESIUM 2.1 MG/DL (1.8-2.4); POTASSIUM 3.8 MMOL/L (3.6-5.0); SODIUM 140 MMOL/L (135-145); TOTAL PROTEIN 7.7 GM/DL (6.4-8.2)
[2018-05-23 19:12] LABS: INR 1.1 (0.8-1.4); MYOGLOBIN SERUM 25.1 NG/ML (10.0-92.0); PROTHROMBIN TIME PATIENT 14.6 SEC (12.2-14.7)
--- NOTE | 2018-05-23 19:12 | Diagnostic Imaging Report ---
INDICATION: Chest pain. EXAMINATION: Upright portable AP view of the chest is obtained. COMPARISON: Comparison is made to study of 05/12/2018. FINDINGS: Overall heart size and pulmonary vascularity are within normal limits. There is persistent fracture of the left seventh rib. No pneumothorax is identified. No definite pleural fluid is seen. IMPRESSION: Nonacute fracture involving left seventh rib. Otherwise, no acute abnormality or adverse change is seen. Dictated by: Dictated on workstation # [id number]
== END 2018-05-23 19:54 | disposition other institution (70) ==
LOC: ER 18:33 → EDUNIT# 18:33 → ER 19:54
DX: R07.89 Other chest pain (principal); E78.00 Pure hypercholesterolemia, unspecified; I10 Essential (primary) hypertension; G43.909 Migraine, unspecified, not intractable, without status migrainosus; K21.9 Gastro-esophageal reflux disease without esophagitis; E03.9 Hypothyroidism, unspecified; E11.9 Type 2 diabetes mellitus without complications; F41.9 Anxiety disorder, unspecified; F31.9 Bipolar disorder, unspecified; F17.210 Nicotine dependence, cigarettes, uncomplicated; Z86.718 Personal history of other venous thrombosis and embolism; Z87.09 Personal history of other diseases of the respiratory system; Z88.0 Allergy status to penicillin; Z88.2 Allergy status to sulfonamides; Z88.6 Allergy status to analgesic agent; Z88.8 Allergy status to other drugs, medicaments and biological substances; Z88.5 Allergy status to narcotic agent; Z88.1 Allergy status to other antibiotic agents; Z88.4 Allergy status to anesthetic agent; Z91.041 Radiographic dye allergy status
CPT/HCPCS: 36415; 71045; 80053; 83735; 83874; 83880; 84484; 85025; 85610; 85730; 93005; 93041

== ENCOUNTER 2018-05-30 16:30 | Emergency (ER) | payer MEDICARE, MEDICAID ==
[~2018-05-30] VITALS: Ht 165.1 cm; Wt 137.4 kg
--- NOTE | 2018-05-30 16:39 | ED Fall/Injury ---
General Chief Complaint: Trauma-Non Activation Stated Complaint: FALL Source: patient Exam Limitations: no limitations History of Present Illness Date Seen by Provider: May 30, 2018 Time Seen by Provider: 16:38 Initial Comments To ER per EMS from [facility] with reports of Low back and tailbone pain after a fall landing on her buttock. This occurred just prior to arrival. She believes that she's broken her tailbone. Occurred: just prior to arrival Severity: moderate Injuries/Pain Location: back Context: tripped Loss of Consciousness: no loss of consciousness Allergies and Home Medications Allergies Coded Allergies: Cephalosporins (Verified Allergy, Unknown, 05/02/18) Penicillins (Verified Allergy, Unknown, 05/02/18) Sulfa (Sulfonamide Antibiotics) (Verified Allergy, Unknown, 05/02/18) aspirin (Verified Allergy, Unknown, 05/12/18) cephalexin (Verified Allergy, Unknown, 05/02/18) codeine (Verified Allergy, Unknown, 05/02/18) diphenhydramine (Verified Allergy, Unknown, 05/02/18) erythromycin base (Verified Allergy, Unknown, 05/02/18) iodine (Verified Allergy, Unknown, 05/02/18) ketorolac (Verified Allergy, Unknown, 05/02/18) morphine (Verified Allergy, Unknown, 05/02/18) propoxyphene (Verified Allergy, Unknown, 05/02/18) tetracycline (Verified Allergy, Unknown, 05/02/18) Patient Home Medication List Home Medication List Reviewed: Yes Review of Systems Review of Systems Constitutional: see HPI Eyes: No Symptoms Reported Ears, Nose, Mouth, Throat: no symptoms reported Respiratory: no symptoms reported Cardiovascular: no symptoms reported Genitourinary: no symptoms reported Musculoskeletal: see HPI, back pain Skin: no symptoms reported Psychiatric/Neurological: No Symptoms Reported Past Lclnein-Wryfra-Zirztm Hx Patient Social History Type Used: Cigarettes 2nd Hand Smoke Exposure: Yes Recent Foreign Travel: No Contact w/Someone Who Travel: No Recent Hopitalizations: No Immunizations Up To Date Tetanus Booster (TDap): Unknown Seasonal Allergies Seasonal Allergies: No Past Medical History Surgeries: Yes Amputation, Hysterectomy, Orthopedic, Tubal Ligation Respiratory: Yes Chronic Bronchitis Cardiac: Yes Deep Vein Thrombosis, High Cholesterol, Hypertension Neurological: Yes Headaches /Migraines Genitourinary: No Gastrointestinal: Yes Gastroesophageal Reflux Musculoskeletal: Yes Endocrine: Yes Hypothyroidsim, Diabetes, Non-Insulin dep HEENT: No Cancer: No Psychosocial: Yes Anxiety, Bipolar Integumentary: No Blood Disorders: No Family Medical History No Pertinent Family Hx Physical Exam Vital Signs Vital Signs - First Documented 05/30/18 16:30 Temp 97.5 Pulse 85 Resp 18 B/P (MAP) 130/55 (80) Pulse Ox 94 Capillary Refill : Height, Weight, BMI Height: 5'5.00" Weight: 305lbs. oz. 138.296845rb; BMI Method:Stated General Appearance: WD/WN, no apparent distress HEENT: PERRL/EOMI, normal ENT inspection Respiratory: no respiratory distress, no accessory muscle use Gastrointestinal: normal bowel sounds, soft Extremities: normal range of motion, non-tender Neurologic/Psychiatric: alert, normal mood/affect Skin: normal color, warm/dry, other (patient was rolled onto her side with Maury RN at the bedside, , back was examined. There is no erythema ecchymosis abrasion or other sign of injury to the areas of pain.) Aris Coma Score Best Eye Response: (4) Open Spontaneously Best Verbal Response: (5) Oriented Best Motor Response: (6) Obeys Commands [place] Total: 15 Progress/Results/Core Measures Results/Orders My Orders Orders - PRIYA ROUSE APRN Ct Lumbar Spine Wo (05/30/18 16:37) Ct Pelvis Wo (05/30/18 16:51) Vital Signs/I&O 05/30/18 16:30 Temp 97.5 Pulse 85 Resp 18 B/P (MAP) 130/55 (80) Pulse Ox 94 Departure Impression Primary Impression: Coccyx contusion Disposition: XFER SNF Condition: Stable Departure-Patient Inst. Decision time for Depature: 16:39 Referrals: ROSI HUTCHISON DO (PCP/Family) Primary Care Physician Patient Instructions: Contusion (DC) Add. Discharge Instructions: All discharge instructions reviewed with patient and/or family. Voiced understanding. Copy Copies To 1: ROSI HUTCHISON PETER J APRN May 30, 2018 16:39
--- NOTE | 2018-05-30 17:24 | Diagnostic Imaging Report ---
PROCEDURE: CT lumbar spine without contrast. TECHNIQUE: Multiple contiguous axial images were obtained through the lumbar spine without the use of intravenous contrast. Sagittal and coronal reformations were then performed. INDICATION: Fall, back pain. COMPARISON: None. FINDINGS: Alignment of the lumbar column is normal. There is no obvious subluxation or fracture. Kvakmmrp-kg-heiklk degenerative changes are seen throughout the disc spaces and facet joints. There is no paraspinous mass or hematoma. The SI joints are symmetric. IMPRESSION: 1. Please note, the examination is limited due to patient body habitus. 2. No traumatic malalignment or obvious fracture. If symptoms continue, consider MRI. Dictated by: Dictated on workstation # [id number]
--- NOTE | 2018-05-30 17:30 | Diagnostic Imaging Report ---
PROCEDURE: CT pelvis without contrast. TECHNIQUE: Multiple contiguous axial images were obtained through the pelvis without the use of intravenous contrast. Sagittal and coronal reformations were performed. INDICATION: Back pain. COMPARISON: None. FINDINGS: Please note, the sacrum and SI joints were imaged. Partial visualization of the pelvis is present. There is no obvious fracture or osseous lesion. SI joints are symmetric. The visualized coccyx is unremarkable. Please note, the imaging detail is suboptimal due to patient body habitus. IMPRESSION: No obvious traumatic malalignment or fracture of the sacrum and coccyx. Dictated by: Dictated on workstation # [id number]
[2018-05-30 17:55] VITALS: BP 130/55
== END 2018-05-30 17:56 ==
LOC: EDUNIT# 16:32 → ER 16:35
DX: S30.0XXA Contusion of lower back and pelvis, initial encounter (principal); I10 Essential (primary) hypertension; E03.9 Hypothyroidism, unspecified; E11.9 Type 2 diabetes mellitus without complications; F41.9 Anxiety disorder, unspecified; F32.9 Major depressive disorder, single episode, unspecified; G43.909 Migraine, unspecified, not intractable, without status migrainosus; R40.2142 Coma scale, eyes open, spontaneous, at arrival to emergency department; R40.2252 Coma scale, best verbal response, oriented, at arrival to emergency department; R40.2362 Coma scale, best motor response, obeys commands, at arrival to emergency department; E78.00 Pure hypercholesterolemia, unspecified; Z88.0 Allergy status to penicillin; Z88.1 Allergy status to other antibiotic agents; Z88.6 Allergy status to analgesic agent; Z88.2 Allergy status to sulfonamides; Z88.8 Allergy status to other drugs, medicaments and biological substances; Z88.4 Allergy status to anesthetic agent; Z88.5 Allergy status to narcotic agent; Z91.041 Radiographic dye allergy status; Z77.22 Contact with and (suspected) exposure to environmental tobacco smoke (acute) (chronic); Z98.51 Tubal ligation status; Z90.710 Acquired absence of both cervix and uterus; Z86.718 Personal history of other venous thrombosis and embolism; Z87.09 Personal history of other diseases of the respiratory system; W01.0XXA Fall on same level from slipping, tripping and stumbling without subsequent striking against object, initial encounter
CPT/HCPCS: 72131; 72192

== ENCOUNTER 2018-06-08 19:33 | Emergency (ER) | payer MEDICARE, MEDICAID ==
[~2018-06-08] VITALS: Ht 165.1 cm; Wt 137.4 kg
--- NOTE | 2018-06-08 19:46 | ED Head Injury ---
General Stated Complaint: FALL Source: patient, EMS Exam Limitations: no limitations History of Present Illness Date Seen by Provider: Jun 08, 2018 Time Seen by Provider: 19:41 Initial Comments Patient is a 62-year-old female who was brought to the emergency room from [facility] by [facility] with reports of falling backwards in her chair and hitting her head on her oxygen tank. She also reports right knee pain from the fall. She reports when she fell striking her head she did feel a pop in her neck. Denies loss of consciousness, numbness or tingling in any extremity. Patient does have a c-collar in place on arrival to the emergency room. EMS reports that the [facility] told them she was drug seeking and has had numerous visits to the emergency room for vague symptoms of pain. Occurred: just prior to arrival Severity: mild Location: occipital Method of Injury: fell Loss of Consciousness: no loss of consciousness Associated Systoms: Other (neck pain) Allergies and Home Medications Allergies Coded Allergies: Cephalosporins (Verified Allergy, Unknown, 05/02/18) Penicillins (Verified Allergy, Unknown, 05/02/18) Sulfa (Sulfonamide Antibiotics) (Verified Allergy, Unknown, 05/02/18) aspirin (Verified Allergy, Unknown, 05/12/18) cephalexin (Verified Allergy, Unknown, 05/02/18) codeine (Verified Allergy, Unknown, 05/02/18) diphenhydramine (Verified Allergy, Unknown, 05/02/18) erythromycin base (Verified Allergy, Unknown, 05/02/18) iodine (Verified Allergy, Unknown, 05/02/18) ketorolac (Verified Allergy, Unknown, 05/02/18) morphine (Verified Allergy, Unknown, 05/02/18) propoxyphene (Verified Allergy, Unknown, 05/02/18) tetracycline (Verified Allergy, Unknown, 05/02/18) Patient Home Medication List Home Medication List Reviewed: Yes Review of Systems Review of Systems Constitutional: see HPI; No chills, No fever Musculoskeletal: see HPI, joint pain (right knee pain), neck pain All Other Systems Reviewed Negative Unless Noted: Yes Past Kricxvk-Wpomdz-Wdrnaw Hx Past Med/Social Hx: Reviewed Nursing Past Med/Soc Hx Patient Social History Type Used: Cigarettes 2nd Hand Smoke Exposure: Yes Recent Foreign Travel: No Contact w/Someone Who Travel: No Recent Hopitalizations: No Immunizations Up To Date Tetanus Booster (TDap): Unknown Seasonal Allergies Seasonal Allergies: No Past Medical History Surgeries: Yes Amputation, Hysterectomy, Orthopedic, Tubal Ligation Respiratory: Yes Chronic Bronchitis Cardiac: Yes Deep Vein Thrombosis, High Cholesterol, Hypertension Neurological: Yes Headaches /Migraines Genitourinary: No Gastrointestinal: Yes Gastroesophageal Reflux Musculoskeletal: Yes Endocrine: Yes Hypothyroidsim, Diabetes, Non-Insulin dep HEENT: No Cancer: No Psychosocial: Yes Anxiety, Bipolar Integumentary: No Blood Disorders: No Family Medical History Reviewed Nursing Family Hx No Pertinent Family Hx Physical Exam Vital Signs Vital Signs - First Documented 06/08/18 19:33 Temp 97.6 Pulse 78 Resp 18 B/P (MAP) 139/79 (99) Pulse Ox 95 O2 Delivery Room Air Capillary Refill : Height, Weight, BMI Height: 5'5.00" Weight: 303lbs. oz. 137.267162vi; BMI Method:Stated General Appearance: WD/WN, no apparent distress Neck: normal inspection, tender midline Cardiovascular: normal peripheral pulses, regular rate, rhythm, no edema, no gallop, no JVD, no murmur Respiratory: chest non-tender, lungs clear, normal breath sounds, no respiratory distress, no accessory muscle use Back: normal inspection, no CVA tenderness, no vertebral tenderness Extremities: normal range of motion, normal inspection, no pedal edema, no calf tenderness, normal capillary refill, other Psychiatric: alert, oriented x 3 Crainal Nerves: normal hearing, normal speech, PERRL Coordination/Gait: normal finger to nose Skin: normal color, warm/dry Aris Coma Score Best Eye Response: (4) Open Spontaneously Best Verbal Response: (5) Oriented Best Motor Response: (6) Obeys Commands Aris Total: 15 Images 1 - Pain 2 - Pain Progress/Results/Core Measures Results/Orders My Orders Vital Signs/I&O Progress Progress Note : Time: 20:29 Progress Note I seen and evaluated the patient. I've informed her of normal CT studies of her head and neck and her c-collar was removed at this time. I have addressed her pain. She agrees with plan of care, plans for discharge, return precautions were given. Patient requested taxi ride home. Taxi was called. Voices no questions or concerns. Diagnostic Imaging Diagonstic Imaging: Xray, CT Plain Films/CT/US/NM/MRI: c-spine, knee, head Comments NAME: KWADWO SHINYN [facility] REC#: [id number] PHYSICIAN: TAM EPPERSON CC: TAM EPPERSON; LATASHA OROZCO MD Page 1 of 1 RADIOLOGY REPORT VIA [facility], [facility]. [place] CC: TAM EPPERSON; LATASHA OROZCO MD Page 1 of 1 RADIOLOGY REPORT NAME: KWADWO SHINYN [facility] REC#: [id number] PT STATUS: REG ER : 1955 PHYSICIAN: TAM EPPERSON ADMIT DATE: 06/08/18/ER Signed Date of Exam: 06/08/18 CT HEAD/CERVICAL SPINE WO PROCEDURE: CT head and CT cervical spine without contrast. TECHNIQUE: Multiple contiguous axial images were obtained through the brain and cervical spine without the use of intravenous contrast. Sagittal and coronal reformations through the cervical spine were then performed. INDICATION: Fell and hit her head The ventricles are normal in size, shape and position. There is no acute parenchymal edema, hemorrhage or mass. There is no extra-axial mass or hemorrhage. There is no acute bony abnormality. There is no change from 05/11/2018. There is normal height and alignment of the cervical vertebral bodies. There are mild degenerative changes present. No fracture or other acute abnormality is seen. There is no change from 05/11/2018. IMPRESSION: CT of the head and cervical spine shows no acute abnormality. Dictated by: Dictated on workstation # [id number] Dict: 06/08/182021 Trans: 06/08/182042 Interpreted by: LATASHA OROZCO MD Electronically signed by: LATASHA OROZCO MD 06/08/182042 NAME: SHIN,CARY [facility] REC#: [id number] PHYSICIAN: TAM EPPERSON CC: TAM EPPERSON; LATASHA OROZCO MD Page 1 of 1 RADIOLOGY REPORT VIA [facility], [facility]. [place], [place] CC: TAM EPPERSON; LATASHA OROZCO MD Page 1 of 1 RADIOLOGY REPORT NAME: CARY SHIN REC#: [id number] PT STATUS: REG ER : 1955 PHYSICIAN: TAM EPPERSON ADMIT DATE: 06/08/18/ER Signed Date of Exam: 06/08/18 KNEE, RIGHT, 3 VIEWS INDICATION: Fall, right knee pain 3 views of the right knee show no fracture, dislocation or other acute abnormality. There are changes of prior arthroplasty. IMPRESSION: No acute abnormality is seen with no change from 05/05/2018. Dictated by: Dictated on workstation # [id number] Dict: 06/08/182034 Trans: 06/08/182042 Interpreted by: LATASHA OROZCO MD Electronically signed by: LATASHA OROZCO MD 06/08/182042 Reviewed: Reviewed by Me Departure Impression Primary Impression: Minor head injury Additional Impression: Contusion of right knee Disposition: 01 HOME, SELF-CARE Condition: Stable/Unchanged Departure-Patient Inst. Decision time for Depature: 20:55 Referrals: ROSI HUTCHISON DO (PCP/Family) Primary Care Physician Patient Instructions: Minor Head Injury (DC) Add. Discharge Instructions: You may use ibuprofen and Tylenol as directed by the bottle for pain. Follow-up with Dr. Hutchison within 1 week for recheck. Return back to the emergency room for any worsening symptoms or concerns as needed. TAM EPPERSON Jun 08, 2018 19:46
--- NOTE | 2018-06-08 20:26 | Diagnostic Imaging Report ---
PROCEDURE: CT head and CT cervical spine without contrast. TECHNIQUE: Multiple contiguous axial images were obtained through the brain and cervical spine without the use of intravenous contrast. Sagittal and coronal reformations through the cervical spine were then performed. INDICATION: Fell and hit her head The ventricles are normal in size, shape and position. There is no acute parenchymal edema, hemorrhage or mass. There is no extra-axial mass or hemorrhage. There is no acute bony abnormality. There is no change from 05/11/2018. There is normal height and alignment of the cervical vertebral bodies. There are mild degenerative changes present. No fracture or other acute abnormality is seen. There is no change from 05/11/2018. IMPRESSION: CT of the head and cervical spine shows no acute abnormality. Dictated by: Dictated on workstation # [id number]
--- NOTE | 2018-06-08 20:39 | Diagnostic Imaging Report ---
INDICATION: Fall, right knee pain 3 views of the right knee show no fracture, dislocation or other acute abnormality. There are changes of prior arthroplasty. IMPRESSION: No acute abnormality is seen with no change from 05/05/2018. Dictated by: Dictated on workstation # [id number]
[2018-06-08] MEDS ORDERED: ACETAMINOPHEN 500 MG TAB (TYLENOL) PO ONE (21:00)
[2018-06-08 21:20] VITALS: BP 0/0
== END 2018-06-08 21:20 | disposition home or self-care (01) ==
LOC: EDUNIT# 19:33 → ER 19:34
DX: S09.90XA Unspecified injury of head, initial encounter (principal); S80.01XA Contusion of right knee, initial encounter; E78.00 Pure hypercholesterolemia, unspecified; I10 Essential (primary) hypertension; G43.909 Migraine, unspecified, not intractable, without status migrainosus; K21.9 Gastro-esophageal reflux disease without esophagitis; E03.9 Hypothyroidism, unspecified; E11.9 Type 2 diabetes mellitus without complications; F41.9 Anxiety disorder, unspecified; F31.9 Bipolar disorder, unspecified; R40.2142 Coma scale, eyes open, spontaneous, at arrival to emergency department; R40.2252 Coma scale, best verbal response, oriented, at arrival to emergency department; R40.2362 Coma scale, best motor response, obeys commands, at arrival to emergency department; Z88.1 Allergy status to other antibiotic agents; Z88.0 Allergy status to penicillin; Z88.2 Allergy status to sulfonamides; Z98.51 Tubal ligation status; Z90.710 Acquired absence of both cervix and uterus; Z86.718 Personal history of other venous thrombosis and embolism; Z77.22 Contact with and (suspected) exposure to environmental tobacco smoke (acute) (chronic); Z88.5 Allergy status to narcotic agent; Z91.041 Radiographic dye allergy status; Z88.4 Allergy status to anesthetic agent; Z88.8 Allergy status to other drugs, medicaments and biological substances; Z88.6 Allergy status to analgesic agent; W07.XXXA Fall from chair, initial encounter; W22.09XA Striking against other stationary object, initial encounter
CPT/HCPCS: 70450; 72125; 73562

== ENCOUNTER → 2018-06-16 | Outpatient (CLI) | payer MEDICARE, MEDICAID ==
[~2018-06-16] VITALS: Ht 165.1 cm; Wt 137.4 kg
[~2018-06-16] MED LIST: CARV6.252 PO; CATHETER FLUSH 10 ML SYR IV PRN; CIPR-225 PO; CLON0.252 PO; CRAN500T2 PO; DICL100G18 TP; DIVA-21 PO; DULO60CA58 PO; GABA600T2 PO; HYDR-700 PO; HYDR20TA20 PO; LEVO200T6 PO; MAG30ORA2 PO; MONT10TA24 PO; OLAN10TA19 PO; OMEP20CA12 PO; REGADENOSON 0.4 MG/5 ML SYR (LEXISCAN) IV ONE; RIVA20TA PO; ROSU20TA31 PO; SACC250C PO; TOPI100T11 PO
--- NOTE | 2018-06-16 17:07 | STRESS TEST ---
DATE OF SERVICE: 06/16/2018 LEXISCAN MYOVIEW STRESS TEST REPORT Baseline heart rate is 69, baseline blood pressure 129/71. Baseline EKG is sinus rhythm with no ischemic changes. In summary, the patient was injected with 10.51 mCi of technetium-99 Myoview and the resting images were obtained. Then, the patient received 0.4 mg of Lexiscan followed by 29.9 mCi of technetium-99 Myoview. Throughout the test, there were no EKG changes. The resting and stress images were reviewed and compared in the short axis, horizontal long axis and vertical long axis views. Review of the images showed breast attenuation with decrease uptake involving the whole inferior wall and inferolateral wall with mild reversibility. SSS is 9, SDS 2, TID value 0.98. On the gated images, the left ventricle appeared to be in normal size with normal contractility. Calculated ejection fraction of 72%. CONCLUSION: 1. The patient tolerated Lexiscan well. 2. Mild reversible ischemia involving the whole inferior wall and inferolateral wall. 3. Normal left ventricular size with normal contractility. Calculated ejection fraction of 72%. Job ID: [id number] DocumentID: [id number] Dictated Date: 06/16/2018 12:58:23 Yardage Control Operator Date: 06/16/2018 17:06:46 Dictated By: PIERRE DE LA VEGA MD
== END ==
LOC: CARD 08:16
PROVIDERS: ATTEND Internal Medicine Cardiovascular Disease
DX: I10 Essential (primary) hypertension (principal); E78.2 Mixed hyperlipidemia; E11.9 Type 2 diabetes mellitus without complications; Z72.0 Tobacco use
CPT/HCPCS: 78452; 93017

== ENCOUNTER 2018-06-18 10:24 | Day surgery (SDC) | payer MEDICARE, MEDICAID ==
[2018-06-18] VITALS (9 sets, daily range): BP systolic 129–151; BP diastolic 77–95
[~2018-06-18] VITALS: Ht 165.1 cm; Wt 137.4 kg
[2018-06-18] MEDS ORDERED: NS IV 1000 ML 1,000 ML ONE (10:41)
[2018-06-18] MEDS ORDERED: HEParin (CATH LAB) 2,000 ML IV ONE (10:41)
--- NOTE | 2018-06-18 11:18 | Diagnostic Imaging Report ---
INDICATION: Coronary artery disease Portable chest 11:04 AM Heart size and pulmonary vascularity are normal. Lungs are clear. There are no effusions or pneumothoraces. IMPRESSION: Negative chest. Dictated by: Dictated on workstation # [id number]
[2018-06-18] MEDS ORDERED: NS IV 1000 ML 1,000 ML IV SCH ×2 (11:30→13:14)
[2018-06-18] MEDS ORDERED: methylPREDNISolone 125 MG (Solu-MEDROL) VIAL ONE (11:33)
[2018-06-18 11:34] LABS: HEMOGLOBIN 12.9 G/DL (11.5-16.0); RED BLOOD COUNT 4.76 10^6/uL (4.35-5.85); RED CELL DISTRIBUTION WIDTH 18.7 % (10.0-14.5); WHITE BLOOD COUNT 9.4 10^3/uL (4.3-11.0)
[2018-06-18] MEDS ORDERED: HYDR20TA20 PO (11:40)
[2018-06-18] MEDS ORDERED: GABA600T2 PO (11:40)
[2018-06-18] MEDS ORDERED: OLAN10TA19 PO (11:40)
[2018-06-18] MEDS ORDERED: LEVO200T6 PO (11:40)
[2018-06-18] MEDS ORDERED: HYDR-700 PO (11:40)
[2018-06-18] MEDS ORDERED: OMEP20CA12 PO (11:40)
[2018-06-18] MEDS ORDERED: SACC250C PO (11:40)
[2018-06-18] MEDS ORDERED: CIPR-225 PO (11:40)
[2018-06-18] MEDS ORDERED: DICL100G18 TP (11:40)
[2018-06-18] MEDS ORDERED: DIVA-21 PO (11:40)
[2018-06-18] MEDS ORDERED: CLON0.252 PO (11:40)
[2018-06-18] MEDS ORDERED: ROSU20TA31 PO (11:40)
[2018-06-18] MEDS ORDERED: DULO60CA58 PO (11:40)
[2018-06-18] MEDS ORDERED: CRAN500T2 PO (11:40)
[2018-06-18] MEDS ORDERED: RIVA20TA PO (11:40)
[2018-06-18] MEDS ORDERED: MAG30ORA2 PO (11:40)
[2018-06-18] MEDS ORDERED: TOPI100T11 PO (11:40)
[2018-06-18] MEDS ORDERED: CARV6.252 PO (11:40)
[2018-06-18] MEDS ORDERED: MONT10TA24 PO (11:40)
[2018-06-18] MEDS ORDERED: FLU QUADRIvalent (5+ YOA) 2018-2019 (AFLURIA) 0.5 ML IM ONE (11:45)
[2018-06-18] MEDS ORDERED: methylPREDNISolone 125 MG (Solu-MEDROL) VIAL IVP ONE (11:45)
--- NOTE | 2018-06-18 11:46 | Cardiac Procedure Note-CS/ASA ---
Pre-Procedure Note Pre-Op Procedure Note H&P Reviewed The H&P was reviewed, patient examined and no changes noted. Date H&P Reviewed: Jun 18, 2018 Time H&P Reviewed: 11:45 Conscious Sedation Pre-Proced Time 11:45 ASA Score 3 For ASA 3 and 4: Consider anesthesia and medical clearance. Also, for patients with a history of failed moderate sedation consider anesthesia. Airway Lungs Heart ASA score ASA 1: a normal healthy patient ASA 2: a patient with a mild systemic disease (mid diabetes, controlled hypertension, obesity x ASA 3: a patient with a severe systemic disease that limits activity (angina , COPD, prior Myocardial infarction) ASA 4: a patient with an incapacitating disease that is a constant threat to life (CHF, renal failure) ASA 5: a moribund patient not expected to survive 24 hrs. (ruptured aneurysm) ASA 6: a declared brain patient whose organs are being harvested. For emergent operations, add the letter E after the classification Mallampati Classification Grade 3 Sedation Plan Analgesia, Amnesia, Plan communicated to team members, Discussed options with patient/fam, Discussed risks with patient/fam The patient is an appropriate candidate to undergo the planned procedure, sedation, and anesthesia. The patient immediately re-assessed prior to indication. PIERRE DE LA VEGA MD Jun 18, 2018 11:46
[2018-06-18] MEDS ORDERED: fentaNYL INJECTION 100 MCG/2 ML AMP ONE (11:48)
[2018-06-18] MEDS ORDERED: HEParin 1000 UNIT/ML (10ML VIAL) FOR BOLUS ONE ×2 (11:48→12:25)
[2018-06-18] MEDS ORDERED: MIDAZOLAM 5 MG/5 ML (VERSED) VIAL ONE (11:48)
[2018-06-18 11:52] LABS: INR 1.1 (0.8-1.4); PROTHROMBIN TIME PATIENT 14.6 SEC (12.2-14.7)
[2018-06-18] MEDS ORDERED: LIDOCAINE 1% INJ 20 ML 20 ML VIAL ONE (11:55)
[2018-06-18 11:58] LABS: ALANINE AMINOTRANSFERASE 29 U/L (0-55); ALBUMIN 3.8 GM/DL (3.2-4.5); ALKALINE PHOSPHATASE 154 U/L (40-136); BILIRUBIN,TOTAL 0.4 MG/DL (0.1-1.0); BUN/CREATININE RATIO 14; CALCIUM 9.5 MG/DL (8.5-10.1); CARBON DIOXIDE 23 MMOL/L (21-32); CHLORIDE 107 MMOL/L (98-107); CHOLESTEROL 125 MG/DL (< 200); CREATININE SERUM 0.76 MG/DL (0.60-1.30); GFR ESTIMATED > 60; GLUCOSE 101 MG/DL (70-105); HDL CHOLESTEROL 30 MG/DL (40-60); POTASSIUM 3.8 MMOL/L (3.6-5.0); SODIUM 142 MMOL/L (135-145); TOTAL PROTEIN 8.2 GM/DL (6.4-8.2); TRIGLYCERIDES 148 MG/DL (<150); VLDL CHOLESTEROL 30 MG/DL (5-40)
[2018-06-18] MEDS ORDERED: VERAPAMIL 5 MG/2 ML (CALAN) VIAL IV ONE (12:24)
[2018-06-18] MEDS ORDERED: NITRO DRIP 25000 MCG/D5W 250 ML IV ONE (12:25)
--- NOTE | 2018-06-18 13:17 | Discharge Inst-Post CATH ---
Discharge Inst-CATH Post Cardiac Cath D/C Inst Follow Up/Plan Appointment with Dr. Aragon's office in 2-4 weeks CARDIAC CATH DISCHARGE INSTRUCTIONS *Hold Metformin for 48 hours post heart cath. ACTIVITY * Go Home directly and rest. * Limit activity of the leg (or wrist if it was used) for 7 days including aerobics, swimming, jogging, bicycling, etc. * Restrict stair-climbing for 7 days if possible, if not, climb up with your non -cath leg, then bring together on the same step. * Avoid lifting, pushing, pulling or excessive movement of the affected extremity for 7 days. * Customary sexual activity may be resumed after 2 days-use caution not to use a position that strains or causes pain to the affected extremity. * No driving for 24 hours. * NO SMOKING. * Avoid straining for bowel movements for 7 days. * Gentle walking on level ground is allowed. * Returning to work will depend on the type of procedure and the results. Your doctor will discuss this with you. CALL YOUR DOCTOR FOR ANY OF THE FOLLOWING: *If bleeding from the puncture site occurs- Apply gentle pressure to site with clean cloth and call your doctor or EMS. * If a knot or lump forms under the skin, increases in size, or causes pain. * If bruising appears to be worsening or moving further down your leg instead of disappearing. * Temperature above 101 F. CARE OF YOUR GROIN INCISION; * Bruising or purple discoloration of the skin near the puncture site is common. * You may shower only, no bathtub bathing for 5 days. Be careful to avoid slipping as your leg may feel stiff. * If a closure device was used on your femoral artery, please see the attached guide regarding care of the device and your leg. * Leave the dressing on, until removed by office staff. CARE OF YOUR WRIST INCISION; * Bruising or purple discoloration of the skin near the puncture site is common. * You may shower. * DO NOT submerge wrist. * Leave dressing on, until removed by office staff.. PIERRE ARAGON MD Jun 18, 2018 1:17 pm
--- NOTE | 2018-06-18 13:20 | Cardiac Cath Report ---
Cardiac Cath Report Physician (s)/Systems Security Analyst (s) Physician PIERRE DE LA VEGA MD Pre-Procedure Diagnosis Pre-Procedure Diagnosis: Coronary artery disease Post-Procedure Note Procedure Start Date: Jun 18, 2018 Name of Procedure: Left heart catheterization Findings/Procedure Note PROCEDURE NOTE: After explaining the procedure to the patient, all pros and cons were explained , all questions were answered. The patient signed the consent and then she was placed on the cardiac catheterization laboratory. Groin was prepped SL fashion local anesthesia was used. Sheath placed in the right radial artery. [place] catheter was used, advanced the left ventricular cavity, pressure was measured, pullback LV to aorta was done, evaluated the right and left coronary system, angiogram was done. At the end of the procedure the sheath was removed. Closure device vascular band was used FINDINGS: Hemodynamics LV 132/26, end-diastolic pressure 26 Aorta 128/70 mean of 93 ANATOMY: Left Main is free of obstructive disease Left Anterior Descending is slightly tortuous with mild disease with no obstructive disease Left Circumflex has mild disease nonobstructive disease Right Coronory Artery is dominant artery with 40-50 percent stenosis at the mid portion nonobstructive disease LV Gram was not done, pressure was measured CONCLUSION: 1. 40-50 percent midright coronary artery disease otherwise mild coronary artery disease nonobstructive disease 2. Elevated left ventricular end-diastolic pressure probably secondary to hypertensive heart disease DISCUSSION AND RECOMMENDATION: Medical therapy is recommended no intervention is needed Anesthesia Type: Conscious Sedation Estimated blood loss (mL): 5 ml Contrast Amount: 26 ml Total Radiation Dose: 284 mGy Post-Procedure Diagnosis Post-operative diagnosis: Coronary artery disease Hypertension Hyperlipidemia PIERRE DE LA VEGA MD Jun 18, 2018 1:20 pm
== END 2018-06-18 16:15 | disposition home or self-care (01) ==
LOC: CATH 10:24
PROVIDERS: ATTEND Internal Medicine Cardiovascular Disease
DX: I25.10 Atherosclerotic heart disease of native coronary artery without angina pectoris (principal); I10 Essential (primary) hypertension; E78.5 Hyperlipidemia, unspecified; R07.89 Other chest pain; E11.9 Type 2 diabetes mellitus without complications; E78.2 Mixed hyperlipidemia; Z86.718 Personal history of other venous thrombosis and embolism; K21.9 Gastro-esophageal reflux disease without esophagitis; F31.9 Bipolar disorder, unspecified; E03.9 Hypothyroidism, unspecified; F17.210 Nicotine dependence, cigarettes, uncomplicated; J44.9 Chronic obstructive pulmonary disease, unspecified; R60.9 Edema, unspecified; E66.01 Morbid (severe) obesity due to excess calories; Z68.43 Body mass index [BMI] 50.0-59.9, adult
CPT/HCPCS: 36415; 71045; 80053; 80061; 85027; 85610; 85730; 87081; 93458

== ENCOUNTER 2018-06-21 18:25 | Emergency (ER) | payer MEDICARE, MEDICAID ==
[~2018-06-21] VITALS: Ht 165.1 cm; Wt 142.9 kg
[~2018-06-21 18:25] MED LIST changes: -CATHETER FLUSH 10 ML SYR IV PRN; -REGADENOSON 0.4 MG/5 ML SYR (LEXISCAN) IV ONE
--- NOTE | 2018-06-21 18:32 | ED Chest Pain ---
General Stated Complaint: CP Source: patient Exam Limitations: no limitations History of Present Illness Date Seen by Provider: Jun 21, 2018 Time Seen by Provider: 18:30 Initial Comments Sharp stabbing Chest pain that began 1 hour ago while sitting at dinner table. Pt had heart cath here 2 days ago for her frequent presentations to ER for chest pain. Timing/Duration: 1 hour Severity/Quality: moderate Location: central Radiation: no radiation Prior CP/Workup: cardiac cath ASA po INDUSTRIAL METHODS CONSULTANT: No NTG SL INDUSTRIAL METHODS CONSULTANT: No Allergies and Home Medications Allergies Coded Allergies: Cephalosporins (Verified Allergy, Unknown, 05/02/18) Penicillins (Verified Allergy, Unknown, 05/02/18) Sulfa (Sulfonamide Antibiotics) (Verified Allergy, Unknown, 05/02/18) aspirin (Verified Allergy, Unknown, 05/12/18) cephalexin (Verified Allergy, Unknown, 05/02/18) codeine (Verified Allergy, Unknown, 05/02/18) diphenhydramine (Verified Allergy, Unknown, 05/02/18) erythromycin base (Verified Allergy, Unknown, 05/02/18) iodine (Verified Allergy, Unknown, 05/02/18) ketorolac (Verified Allergy, Unknown, 05/02/18) morphine (Verified Allergy, Unknown, 05/02/18) propoxyphene (Verified Allergy, Unknown, 05/02/18) tetracycline (Verified Allergy, Unknown, 05/02/18) Home Medications Carvedilol 6.25 Mg Tablet, 6.25 MG PO BID, (Reported) HOLD FOR SBP<100 OR PULSE <60 Ciprofloxacin HCl 500 Mg Tablet, 500 MG PO BID, (Reported) 7 DAY THERAPY START DATE 06-12-18 END DATE 06-19-18 Clonazepam 0.25 Mg Tab.rapdis, 0.25 MG PO BID, (Reported) Cranberry Extract 500 Mg Tablet, 1,000 MG PO BID, (Reported) Diclofenac Sodium 100 Gm Gel..gram., 4 GM TP Q8H PRN for KNEE PAIN, (Reported) Divalproex Sodium 500 Mg Tab.er.24h, 500 MG PO HS, (Reported) Duloxetine HCl 60 Mg Capsule.dr, 60 MG PO BID, (Reported) Gabapentin 600 Mg Tablet, 600 MG PO BID, (Reported) Hydrocodone Bitartrate 20 Mg Tab.er.24h, 20 MG PO DAILY PRN for CHRONIC PAIN, ( Reported) Hydroxyzine HCl 25 Mg Tablet, 25 MG PO BID, (Reported) Levothyroxine Sodium 200 Mcg Tablet, 200 MCG PO DAILY, (Reported) Mag Hydrox/Al Hydrox/Simeth 30 Ml Oral.susp, 30 ML PO Q4H PRN for INDIGESTION, ( Reported) Montelukast Sodium 10 Mg Tablet, 10 MG PO HS, (Reported) Olanzapine 10 Mg Tablet, 10 MG PO HS, (Reported) Omeprazole 20 Mg Capsule.dr, 20 MG PO BID, (Reported) Rivaroxaban 20 Mg Tablet, 20 MG PO HS, (Reported) Rosuvastatin Calcium 20 Mg Tablet, 20 MG PO HS, (Reported) Saccharomyces Boulardii 250 Mg Capsule, 250 MG PO BID, (Reported) Topiramate 100 Mg Tablet, 100 MG PO BID, (Reported) Patient Home Medication List Home Medication List Reviewed: Yes Review of Systems Review of Systems Constitutional: see HPI EENTM: No Symptoms Reported Respiratory: No Symptoms Reported Cardiovascular: See HPI, Chest Pain Gastrointestinal: No Symptoms Reported Genitourinary: No Symptoms Reported Musculoskeletal: no symptoms reported Skin: no symptoms reported Psychiatric/Neurological: No Symptoms Reported Endocrine: No Symptoms Reported Hematologic/Lymphatic: No Symptoms Reported Past Evtwiyn-Sqsnqv-Xxxazl Hx Patient Social History Type Used: Cigarettes 2nd Hand Smoke Exposure: Yes Recent Foreign Travel: No Contact w/Someone Who Travel: No Recent Hopitalizations: No Immunizations Up To Date Tetanus Booster (TDap): Unknown Date of Pneumonia Vaccine: May 04, 2009 Seasonal Allergies Seasonal Allergies: No Past Medical History Surgeries: Yes Amputation, Hysterectomy, Orthopedic, Tubal Ligation Respiratory: Yes Chronic Bronchitis Currently Using CPAP: Yes (WITH O2) Cardiac: Yes Deep Vein Thrombosis, High Cholesterol, Hypertension Neurological: Yes Headaches /Migraines Genitourinary: No Gastrointestinal: Yes Gastroesophageal Reflux Musculoskeletal: Yes Endocrine: Yes Hypothyroidsim, Diabetes, Non-Insulin dep HEENT: No Cancer: No Psychosocial: Yes Anxiety, Bipolar Integumentary: No Blood Disorders: No Family Medical History No Pertinent Family Hx Physical Exam Vital Signs Vital Signs - First Documented Capillary Refill : Height, Weight, BMI Height: 5'5.00" Weight: 303lbs. 0.0oz. 137.003280ga; 50.4 BMI Method:Stated General Appearance: No Apparent Distress, WD/WN HEENT: PERRL/EOMI, TMs Normal Respiratory: No Accessory Muscle Use, No Respiratory Distress, Wheezing (faint) Gastrointestinal: Non Tender, Soft Extremity: Normal Capillary Refill, Normal Inspection Neurologic/Psychiatric: Alert, Oriented x3 Skin: Normal Color, Warm/Dry Progress/Results/Core Measures Results/Orders My Orders Orders - PRIYA ROUSE APRN Cbc With Automated Diff (06/21/18 18:28) Magnesium (06/21/18 18:28) Chest 1 View, Ap/Pa Only (06/21/18 18) Ekg Tracing (06/21/18 18:) Cardiac Profile 1 (06/21/18 18) Comprehensive Metabolic Panel (06/21/18 18) Myoglobin Serum (06/21/18) Protime With Inr (06/21/18) Partial Thromboplastin Time (06/21/18) O2 (06/21/18:) Monitor-Rhythm Ecg Trace Only (06/21/18) Lipid Panel (06/22/18 06:00) Saline Lock/Iv-Start (06/21/18 18:28) Vital Signs/I&O 06/21/18 06/21/18 18:25 18:25 Temp 98.3 Pulse 87 Resp 16 B/P (MAP) 149/67 (94) Pulse Ox 96 O2 Delivery Room Air Room Air Departure Communication (Admissions) Cardiac catheterization done 2 days ago reveals mild nonobstructive disease. No intervention was done. 1936- Requests pain medication for her chest. Offered tylenol to which she responds "can't I have something stronger than Tylenol, that wont work" 1944-patient is now refusing lab draw stating "I don't like the way on being treated here, this has nothing to do with pain medication. I'm leaving". Impression Primary Impression: Left against medical advice Disposition: 07 AGAINST MEDICAL ADVICE Condition: Against Medical Advice Departure-Patient Inst. Decision time for Depature: 19:27 Referrals: ROSI HUTCHISON DO (PCP/Family) Primary Care Physician Add. Discharge Instructions: 1. Follow-up with her doctor on Saturday 2. PRIYA ROUSE APRN Jun 21, 2018 18:32
--- NOTE | 2018-06-21 19:03 | Diagnostic Imaging Report ---
INDICATION: Chest pain. COMPARISON: 06/18/2018. EXAMINATION: Single view of the chest was obtained. FINDINGS: Portable chest again shows linear discoid atelectasis at the right lung base, unchanged. There are no infiltrates. No masses have developed. Heart is not enlarged. No pulmonary edema. No pneumothorax or pleural effusion. No bony lesion. Old deformity of the ribs noted along the right anterior sixth and seventh ribs. IMPRESSION: No acute abnormalities when compared with previous exam. Dictated by: Dictated on workstation # [id number]
[2018-06-21 19:50] VITALS: BP 149/67
== END 2018-06-21 19:50 | disposition left against medical advice (07) ==
LOC: EDUNIT# 18:25 → ER 18:26
DX: R07.9 Chest pain, unspecified (principal); E78.00 Pure hypercholesterolemia, unspecified; I10 Essential (primary) hypertension; G43.909 Migraine, unspecified, not intractable, without status migrainosus; K21.9 Gastro-esophageal reflux disease without esophagitis; E03.9 Hypothyroidism, unspecified; E11.9 Type 2 diabetes mellitus without complications; F41.9 Anxiety disorder, unspecified; F31.9 Bipolar disorder, unspecified; Z91.041 Radiographic dye allergy status; Z88.5 Allergy status to narcotic agent; Z88.0 Allergy status to penicillin; Z88.8 Allergy status to other drugs, medicaments and biological substances; Z88.1 Allergy status to other antibiotic agents; Z88.2 Allergy status to sulfonamides; Z88.6 Allergy status to analgesic agent; Z79.01 Long term (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 of anticoagulants; Z98.890 Other specified postprocedural states; Z77.22 Contact with and (suspected) exposure to environmental tobacco smoke (acute) (chronic); Z90.710 Acquired absence of both cervix and uterus; Z98.51 Tubal ligation status; Z87.09 Personal history of other diseases of the respiratory system; Z86.718 Personal history of other venous thrombosis and embolism
CPT/HCPCS: 71045; 93005

== ENCOUNTER 2018-06-26 17:58 | Emergency (ER) | payer MEDICARE, MEDICAID ==
[~2018-06-26] VITALS: Ht 165.1 cm; Wt 142.9 kg
--- NOTE | 2018-06-26 19:49 | Diagnostic Imaging Report ---
PROCEDURE: CT head without contrast. TECHNIQUE: Multiple contiguous axial images were obtained through the brain without the use of intravenous contrast. INDICATION: Fall. Patient is on blood thinners. Comparison with 06/08/2018. FINDINGS: There is no evidence of intracranial hemorrhage. The ventricles and cortical gyral pattern are normal. Basal cisterns are clear. CP angles are normal. Mastoid air cells are well-aerated. No evidence of calvarial fractures. IMPRESSION: Negative CT head without contrast. No acute changes. Dictated by: Dictated on workstation # [id number]
--- NOTE | 2018-06-26 19:52 | Diagnostic Imaging Report ---
PROCEDURE: CT lumbar spine without contrast. TECHNIQUE: Multiple contiguous axial images were obtained through the lumbar spine without the use of intravenous contrast. Sagittal and coronal reformations were then performed. INDICATION: Chronic low back pain. Fall with increased pain. Comparison with 05/30/2018 lumbosacral spine. FINDINGS: Good alignment of vertebral bodies. Body height is well maintained throughout the lumbar region. There is moderate degenerative disc disease with desiccation and loss of disc space height scattered throughout. No evidence of central canal stenosis. There is mild dextroscoliosis. Hypertrophic endplate changes are noted throughout. Facets show good alignment with moderate hypertrophic changes. No evidence of pars defects. There is noted wedge-type deformity of the superior endplate of T11 with approximately 50% loss of body height. There is no encroachment upon the canal. IMPRESSION: 1. Diffuse degenerative disc disease throughout the lumbar spine without evidence of acute compression fracture in the lumbar spine. 2. Wedge-type compression fracture T11, approximately 50% loss of body height anteriorly. This is of indeterminate age. This was not visualized on the previous lumbar spine as the images did not include T11. There is no evidence of edema around the vertebral body at this time which would suggest this more likely is a chronic finding. Clinical correlation for focal pain. Dictated by: Dictated on workstation # [id number]
--- NOTE | 2018-06-26 19:54 | ED Back Pain ---
General Chief Complaint: Back Problems Stated Complaint: FALL Nursing Triage Note: TO TRIAGE ROOM FROM WAITING ROOM. STATES SHE WAS TRANSFERRING OUT OF HER WC TO CHAIR THIS EVENING WHEN SHE FELL. COMPLAINS OF CHRONIC LOWER BACK PAIN THAT IS WORSE. DENIES HITTING HER HEAD. Nursing Sepsis Screen: No Definite Risk Source of Information: Patient Exam Limitations: No Limitations History of Present Illness Date Seen by Provider: Jun 26, 2018 Time Seen by Provider: 19:53 Allergies and Home Medications Allergies Coded Allergies: Cephalosporins (Verified Allergy, Unknown, 05/02/18) Penicillins (Verified Allergy, Unknown, 05/02/18) Sulfa (Sulfonamide Antibiotics) (Verified Allergy, Unknown, 05/02/18) aspirin (Verified Allergy, Unknown, 05/12/18) cephalexin (Verified Allergy, Unknown, 05/02/18) codeine (Verified Allergy, Unknown, 05/02/18) diphenhydramine (Verified Allergy, Unknown, 05/02/18) erythromycin base (Verified Allergy, Unknown, 05/02/18) iodine (Verified Allergy, Unknown, 05/02/18) ketorolac (Verified Allergy, Unknown, 05/02/18) morphine (Verified Allergy, Unknown, 05/02/18) propoxyphene (Verified Allergy, Unknown, 05/02/18) tetracycline (Verified Allergy, Unknown, 05/02/18) Home Medications Carvedilol 6.25 Mg Tablet, 6.25 MG PO BID, (Reported) HOLD FOR SBP<100 OR PULSE <60 Ciprofloxacin HCl 500 Mg Tablet, 500 MG PO BID, (Reported) 7 DAY THERAPY START DATE 06-12-18 END DATE 06-19-18 Clonazepam 0.25 Mg Tab.rapdis, 0.25 MG PO BID, (Reported) Cranberry Extract 500 Mg Tablet, 1,000 MG PO BID, (Reported) Diclofenac Sodium 100 Gm Gel..gram., 4 GM TP Q8H PRN for KNEE PAIN, (Reported) Divalproex Sodium 500 Mg Tab.er.24h, 500 MG PO HS, (Reported) Duloxetine HCl 60 Mg Capsule.dr, 60 MG PO BID, (Reported) Gabapentin 600 Mg Tablet, 600 MG PO BID, (Reported) Hydrocodone Bitartrate 20 Mg Tab.er.24h, 20 MG PO DAILY PRN for CHRONIC PAIN, ( Reported) Hydroxyzine HCl 25 Mg Tablet, 25 MG PO BID, (Reported) Levothyroxine Sodium 200 Mcg Tablet, 200 MCG PO DAILY, (Reported) Mag Hydrox/Al Hydrox/Simeth 30 Ml Oral.susp, 30 ML PO Q4H PRN for INDIGESTION, ( Reported) Montelukast Sodium 10 Mg Tablet, 10 MG PO HS, (Reported) Olanzapine 10 Mg Tablet, 10 MG PO HS, (Reported) Omeprazole 20 Mg Capsule.dr, 20 MG PO BID, (Reported) Rivaroxaban 20 Mg Tablet, 20 MG PO HS, (Reported) Rosuvastatin Calcium 20 Mg Tablet, 20 MG PO HS, (Reported) Saccharomyces Boulardii 250 Mg Capsule, 250 MG PO BID, (Reported) Topiramate 100 Mg Tablet, 100 MG PO BID, (Reported) Past Bpuilkn-Lebtra-Rrlfjw Hx Patient Social History Alcohol Use: Denies Use Recreational Drug Use: No Smoking Status: Current Everyday Smoker Type Used: Cigarettes 2nd Hand Smoke Exposure: Yes Recent Foreign Travel: No Contact w/Someone Who Travel: No Recent Infectious Disease Expo: No Recent Hopitalizations: No Immunizations Up To Date Tetanus Booster (TDap): Unknown Date of Pneumonia Vaccine: May 04, 2009 Seasonal Allergies Seasonal Allergies: No Past Medical History Surgeries: Yes Amputation, Hysterectomy, Orthopedic, Tubal Ligation Respiratory: Yes Chronic Bronchitis Currently Using CPAP: Yes (WITH O2) Cardiac: Yes Deep Vein Thrombosis, High Cholesterol, Hypertension Neurological: Yes Headaches /Migraines Genitourinary: No Gastrointestinal: Yes Gastroesophageal Reflux Musculoskeletal: Yes Endocrine: No Hypothyroidsim, Diabetes, Non-Insulin dep HEENT: No Cancer: No Psychosocial: Yes Anxiety, Bipolar Integumentary: No Blood Disorders: No Family Medical History No Pertinent Family Hx Physical Exam Vital Signs Vital Signs - First Documented 06/26/18 18:48 Temp 98.0 Pulse 78 Resp 16 B/P (MAP) 156/86 (109) Pulse Ox 91 O2 Delivery Room Air Capillary Refill : Less Than 3 Seconds Height, Weight, BMI Height: 5'5.00" Weight: 315lbs. 0.0oz. 142.748149jd; 50.4 BMI Method:Stated Progress/Results/Core Measures Results/Orders My Orders Orders - PERFECTO BERTRAND Ct Head Wo (06/26/18 19:22) Ct Lumbar Spine Wo (06/26/18 19:22) Oxycodone/Apap 5/325mg Tablet (Percocet (06/26/18 19:26) Vital Signs/I&O 06/26/18 18:48 Temp 98.0 Pulse 78 Resp 16 B/P (MAP) 156/86 (109) Pulse Ox 91 O2 Delivery Room Air Blood Pressure Mean: 109 Departure Impression Primary Impression: Minor head injury without loss of consciousness Additional Impressions: Low back pain Fall Disposition: 03 XFER SNF Condition: Stable Departure-Patient Inst. Decision time for Depature: 20:49 Referrals: ROSI HUTCHISON DO (PCP/Family) Primary Care Physician Patient Instructions: Low Back Pain (DC), Minor Head Injury (DC), Preventing Falls in the Older Adult Add. Discharge Instructions: All discharge instructions reviewed with patient and/or family. Voiced understanding. Continue usual medications. You may use an ice pack as needed for pain for the next 2-3 days. Continue usual orders. Follow-up with Dr. Hutchison tomorrow or Saturday for recheck, call tomorrow morning for follow-up time. Return to the emergency department immediately for worsened symptoms or any other concerns. PERFECTO BERTRAND Jun 26, 2018 19:53
[2018-06-26] MEDS: oxyCODONE/APAP 5/325MG (PERCOCET 5) TABLET PO STA (20:13)
[2018-06-26 21:58] VITALS: BP 130/74
== END 2018-06-26 21:58 ==
LOC: EDUNIT# 17:58 → ER 17:59
DX: S09.90XA Unspecified injury of head, initial encounter (principal); M54.5 Low back pain; E78.00 Pure hypercholesterolemia, unspecified; I10 Essential (primary) hypertension; G43.909 Migraine, unspecified, not intractable, without status migrainosus; K21.9 Gastro-esophageal reflux disease without esophagitis; E03.9 Hypothyroidism, unspecified; E11.9 Type 2 diabetes mellitus without complications; F41.9 Anxiety disorder, unspecified; F32.9 Major depressive disorder, single episode, unspecified; F17.210 Nicotine dependence, cigarettes, uncomplicated; Z90.710 Acquired absence of both cervix and uterus; Z98.51 Tubal ligation status; Z86.718 Personal history of other venous thrombosis and embolism; Z88.0 Allergy status to penicillin; Z88.2 Allergy status to sulfonamides; Z88.5 Allergy status to narcotic agent; Z88.8 Allergy status to other drugs, medicaments and biological substances; Z88.1 Allergy status to other antibiotic agents; Z91.041 Radiographic dye allergy status; Z88.4 Allergy status to anesthetic agent; Z79.01 Long term (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 of anticoagulants; W07.XXXA Fall from chair, initial encounter
CPT/HCPCS: 70450; 72131

== ENCOUNTER 2018-06-29 16:44 | Emergency (ER) | payer MEDICARE, MEDICAID ==
[~2018-06-29] VITALS: Ht 165.1 cm; Wt 141.5 kg
--- NOTE | 2018-06-29 16:56 | ED Chest Pain ---
General Stated Complaint: CP Source: EMS Exam Limitations: no limitations History of Present Illness Date Seen by Provider: Jun 29, 2018 Time Seen by Provider: 16:55 Initial Comments To ER per EMS from [facility] with reports of left-sided chest pain. This began 30 minutes ago. She had a clean heart catheterization last week due to her frequent ER presentations for chest pain. She typically requests fentanyl upon arrival. Today she was offered Tylenol upon arrival and replies "can I get some hydrocodone?". Advised her that we should avoid opiates at this time. She then replies with "can I get some Percocet then?". Timing/Duration: 1/2 hour Severity/Quality: moderate Location: central [facility]SA po HOOF TRIMMER: No NTG SL HOOF TRIMMER: No Allergies and Home Medications Allergies Coded Allergies: Cephalosporins (Verified Allergy, Unknown, 05/02/18) Penicillins (Verified Allergy, Unknown, 05/02/18) Sulfa (Sulfonamide Antibiotics) (Verified Allergy, Unknown, 05/02/18) aspirin (Verified Allergy, Unknown, 05/12/18) cephalexin (Verified Allergy, Unknown, 05/02/18) codeine (Verified Allergy, Unknown, 05/02/18) diphenhydramine (Verified Allergy, Unknown, 05/02/18) erythromycin base (Verified Allergy, Unknown, 05/02/18) iodine (Verified Allergy, Unknown, 05/02/18) ketorolac (Verified Allergy, Unknown, 05/02/18) morphine (Verified Allergy, Unknown, 05/02/18) propoxyphene (Verified Allergy, Unknown, 05/02/18) tetracycline (Verified Allergy, Unknown, 05/02/18) Home Medications Carvedilol 6.25 Mg Tablet, 6.25 MG PO BID, (Reported) HOLD FOR SBP<100 OR PULSE <60 Ciprofloxacin HCl 500 Mg Tablet, 500 MG PO BID, (Reported) 7 DAY THERAPY START DATE 06-12-18 END DATE 06-19-18 Ciprofloxacin HCl 500 Mg Tablet, 500 MG PO BID Prescribed by: PRIYA ROUSE on 06/29/181923 Clonazepam 0.25 Mg Tab.rapdis, 0.25 MG PO BID, (Reported) Cranberry Extract 500 Mg Tablet, 1,000 MG PO BID, (Reported) Diclofenac Sodium 100 Gm Gel..gram., 4 GM TP Q8H PRN for KNEE PAIN, (Reported) Divalproex Sodium 500 Mg Tab.er.24h, 500 MG PO HS, (Reported) Duloxetine HCl 60 Mg Capsule.dr, 60 MG PO BID, (Reported) Gabapentin 600 Mg Tablet, 600 MG PO BID, (Reported) Hydrocodone Bitartrate 20 Mg Tab.er.24h, 20 MG PO DAILY PRN for CHRONIC PAIN, ( Reported) Hydroxyzine HCl 25 Mg Tablet, 25 MG PO BID, (Reported) Levothyroxine Sodium 200 Mcg Tablet, 200 MCG PO DAILY, (Reported) Mag Hydrox/Al Hydrox/Simeth 30 Ml Oral.susp, 30 ML PO Q4H PRN for INDIGESTION, ( Reported) Montelukast Sodium 10 Mg Tablet, 10 MG PO HS, (Reported) Olanzapine 10 Mg Tablet, 10 MG PO HS, (Reported) Omeprazole 20 Mg Capsule.dr, 20 MG PO BID, (Reported) Rivaroxaban 20 Mg Tablet, 20 MG PO HS, (Reported) Rosuvastatin Calcium 20 Mg Tablet, 20 MG PO HS, (Reported) Saccharomyces Boulardii 250 Mg Capsule, 250 MG PO BID, (Reported) Topiramate 100 Mg Tablet, 100 MG PO BID, (Reported) Patient Home Medication List Home Medication List Reviewed: Yes Review of Systems Review of Systems Constitutional: see HPI EENTM: No Symptoms Reported Respiratory: No Symptoms Reported Cardiovascular: See HPI, Chest Pain Gastrointestinal: See HPI Genitourinary: No Symptoms Reported Musculoskeletal: no symptoms reported Skin: no symptoms reported Psychiatric/Neurological: No Symptoms Reported Endocrine: No Symptoms Reported Past Krzmrgs-Yrzztm-Fqafpe Hx Patient Social History Type Used: Cigarettes 2nd Hand Smoke Exposure: Yes Recent Foreign Travel: No Contact w/Someone Who Travel: No Recent Hopitalizations: No Immunizations Up To Date Tetanus Booster (TDap): Unknown Date of Pneumonia Vaccine: May 04, 2009 Seasonal Allergies Seasonal Allergies: No Past Medical History Surgeries: Yes Amputation, Hysterectomy, Orthopedic, Tubal Ligation Respiratory: Yes Chronic Bronchitis Currently Using CPAP: Yes (WITH O2) Cardiac: Yes Deep Vein Thrombosis, High Cholesterol, Hypertension Neurological: Yes Headaches /Migraines Genitourinary: No Gastrointestinal: Yes Gastroesophageal Reflux Musculoskeletal: Yes Endocrine: No Hypothyroidsim, Diabetes, Non-Insulin dep HEENT: No Cancer: No Psychosocial: Yes Anxiety, Bipolar Integumentary: No Blood Disorders: No Family Medical History No Pertinent Family Hx Physical Exam Vital Signs Vital Signs - First Documented 06/29/18 17:31 Temp 98.0 Pulse 82 Resp 18 B/P (MAP) 122/50 (74) Pulse Ox 98 O2 Delivery Room Air Capillary Refill : Height, Weight, BMI Height: 5'5.00" Weight: 315lbs. 0.0oz. 142.994137zk; 50.4 BMI Method:Stated General Appearance: No Apparent Distress, WD/WN HEENT: PERRL/EOMI, TMs Normal Respiratory: Normal Breath Sounds, No Accessory Muscle Use, No Respiratory Distress Cardiovascular: Regular Rate, Rhythm, Normal Peripheral Pulses Gastrointestinal: Normal Bowel Sounds, Non Tender, Soft Neurologic/Psychiatric: Alert, Oriented x3 Skin: Normal Color, Warm/Dry Progress/Results/Core Measures Results/Orders Lab Results Laboratory Tests Test 06/29/18 16:51 06/29/18 16:59 06/29/18 18:55 Range/Units B-Type Natriuretic Peptide < 10.0 <100.0 PG/ML White Blood Count 10.8 4.3-11.0 10^3/uL Red Blood Count 4.26 L 4.35-5.85 10^6/uL Hemoglobin 11.6 11.5-16.0 G/DL Hematocrit 38 35-52 % Mean Corpuscular Volume 89 80-99 FL Mean Corpuscular Hemoglobin 27 25-34 PG Mean Corpuscular Hemoglobin Concent 31 L 32-36 G/DL Red Cell Distribution Width 18.0 H 10.0-14.5 % Platelet Count 228 130-400 10^3/uL Mean Platelet Volume 10.1 7.4-10.4 FL Neutrophils (%) (Auto) 65 42-75 % Lymphocytes (%) (Auto) 24 12-44 % Monocytes (%) (Auto) 9 0-12 % Eosinophils (%) (Auto) 2 0-10 % Basophils (%) (Auto) 0 0-10 % Neutrophils # (Auto) 7.0 1.8-7.8 X 10^3 Lymphocytes # (Auto) 2.6 1.0-4.0 X 10^3 Monocytes # (Auto) 1.0 0.0-1.0 X 10^3 Eosinophils # (Auto) 0.2 0.0-0.3 10^3/uL Basophils # (Auto) 0.0 0.0-0.1 10^3/uL Prothrombin Time 14.6 12.2-14.7 SEC INR Comment 1.1 0.8-1.4 Activated Partial Thromboplast Time 27 24-35 SEC Sodium Level 142 135-145 MMOL/L Potassium Level 3.8 3.6-5.0 MMOL/L Chloride Level 111 H 98-107 MMOL/L Carbon Dioxide Level 21 21-32 MMOL/L Anion Gap 10 5-14 MMOL/L Blood Urea Nitrogen 10 7-18 MG/DL Creatinine 0.74 0.60-1.30 MG/DL Estimat Glomerular Filtration Rate > 60 BUN/Creatinine Ratio 14 Glucose Level 156 H 70-105 MG/DL Calcium Level 8.8 8.5-10.1 MG/DL Corrected Calcium 9.4 8.5-10.1 MG/DL Magnesium Level 2.1 1.8-2.4 MG/DL Total Bilirubin 0.3 0.1-1.0 MG/DL Aspartate Amino Transf (AST/SGOT) 26 5-34 U/L Alanine Aminotransferase (ALT/SGPT) 23 0-55 U/L Alkaline Phosphatase 139 H 40-136 U/L Myoglobin 29.6 10.0-92.0 NG/ML Troponin I < 0.30 <0.30 NG/ML Total Protein 6.9 6.4-8.2 GM/DL Albumin 3.3 3.2-4.5 GM/DL Urine Color YELLOW Urine Clarity CLEAR Urine pH 7 5-9 Urine Specific [place] 1.005 L 1.016-1.022 Urine Protein 1+ H NEGATIVE Urine Glucose (UA) NEGATIVE NEGATIVE Urine Ketones NEGATIVE NEGATIVE Urine Nitrite NEGATIVE NEGATIVE Urine Bilirubin NEGATIVE NEGATIVE Urine Urobilinogen 1 NORMAL MG/DL Urine Leukocyte Esterase 2+ H NEGATIVE Urine RBC (Auto) 1+ H NEGATIVE Urine RBC 5-10 H /HPF Urine WBC 50-100 H /HPF Urine Squamous Epithelial Cells 0-2 /HPF Urine Crystals NONE /LPF Urine Bacteria TRACE /HPF Urine Casts NONE /LPF Urine Mucus NEGATIVE /LPF Urine Culture Indicated YES My Orders Orders - PRIYA ROUSE APRN Cbc With Automated Diff (06/29/18 16:50) Magnesium (06/29/18 16:50) Chest 1 View, Ap/Pa Only (06/29/18 16:50) Cardiac Profile 1 (06/29/18 16:50) Comprehensive Metabolic Panel (06/29/18 16:50) Myoglobin Serum (06/29/18 16:50) Protime With Inr (06/29/18 16:50) Partial Thromboplastin Time (06/29/18 16:50) O2 (06/29/18 16:50) Monitor-Rhythm Ecg Trace Only (06/29/18 16:50) Lipid Panel (06/30/18 06:00) Saline Lock/Iv-Start (06/29/18 16:50) Ua Culture If Indicated (06/29/18 17:27) BNP (06/29/18 18:44) Urine Culture (06/29/18 18:55) Hydroxyzine Oral (Vistaril Capsule) (06/29/18 19:30) Vital Signs/I&O 06/29/18 17:31 Temp 98.0 Pulse 82 Resp 18 B/P (MAP) 122/50 (74) Pulse Ox 98 O2 Delivery Room Air Departure Impression Primary Impression: Chest pain Qualified Codes: R07.1 - Chest pain on breathing Additional Impression: Urinary tract infection Disposition: 01 HOME, SELF-CARE Condition: Stable Departure-Patient Inst. Decision time for Depature: 19:22 Referrals: ROSI HUTCHISON DO (PCP/Family) Primary Care Physician Patient Instructions: Chest Pain That Is Not Caused by the Heart (DC), Urinary Tract Infection, Adult (DC) Add. Discharge Instructions: 1. Follow-up with Dr. Dr. Hutchison. 2. Do not take hydroxyzine while you are on the cipro antibiotics Scripts Ciprofloxacin HCl (Cipro) 500 Mg Tablet 500 MG PO BID, #10 TAB Prov: PRIYA ROUSE CORPORATE TRAVEL EXPERT 06/29/18 PRIYA ROUSE CORPORATE TRAVEL EXPERT Jun 29, 2018 16:56
[2018-06-29 17:05] LABS: BASOPHILS % (AUTO) 0 % (0-10); EOSINOPHILS # (AUTO) 0.2 10^3/uL (0.0-0.3); EOSINOPHILS % (AUTO) 2 % (0-10); HEMATOCRIT 38 % (35-52); HEMOGLOBIN 11.6 G/DL (11.5-16.0); LYMPHOCYTES # (AUTO) 2.6 X 10^3 (1.0-4.0); LYMPHOCYTES % (AUTO) 24 % (12-44); MEAN CORPUSCULAR HEMOGLOBIN 27 PG (25-34); MEAN CORPUSCULAR HGB CONC 31 G/DL (32-36); MEAN CORPUSCULAR VOLUME 89 FL (80-99); MEAN PLATELET VOLUME 10.1 FL (7.4-10.4); MONOCYTES % (AUTO) 9 % (0-12); NEUTROPHILS % (AUTO) 65 % (42-75); PLATELET COUNT 228 10^3/uL (130-400); RED BLOOD COUNT 4.26 10^6/uL (4.35-5.85); WHITE BLOOD COUNT 10.8 10^3/uL (4.3-11.0)
[2018-06-29 17:18] LABS: INR 1.1 (0.8-1.4); PROTHROMBIN TIME PATIENT 14.6 SEC (12.2-14.7)
[2018-06-29 17:22] LABS: ALANINE AMINOTRANSFERASE 23 U/L (0-55); ALBUMIN 3.3 GM/DL (3.2-4.5); ALKALINE PHOSPHATASE 139 U/L (40-136); BILIRUBIN,TOTAL 0.3 MG/DL (0.1-1.0); BUN/CREATININE RATIO 14; CALCIUM 8.8 MG/DL (8.5-10.1); CARBON DIOXIDE 21 MMOL/L (21-32); CHLORIDE 111 MMOL/L (98-107); CREATININE SERUM 0.74 MG/DL (0.60-1.30); GFR ESTIMATED > 60; GLUCOSE 156 MG/DL (70-105); MAGNESIUM 2.1 MG/DL (1.8-2.4); POTASSIUM 3.8 MMOL/L (3.6-5.0); SODIUM 142 MMOL/L (135-145); TOTAL PROTEIN 6.9 GM/DL (6.4-8.2)
--- NOTE | 2018-06-29 17:22 | Diagnostic Imaging Report ---
INDICATION: Chest pain, wheezing, and cough. EXAMINATION: Frontal chest from 06/29/2018. COMPARISON: Comparison made to 06/21/2018. FINDINGS: Bibasilar atelectasis noted. Mild pulmonary edema throughout the lungs. Heart and pulmonary vasculature are stable. No pneumothorax or effusions. IMPRESSION: 1. Mild pulmonary edema suspected with remaining chest fairly stable from previous. Dictated by: Dictated on workstation # [id number]
[2018-06-29 17:28] LABS: MYOGLOBIN SERUM 29.6 NG/ML (10.0-92.0)
[2018-06-29 19:01] LABS: BILIRUBIN,URINE NEGATIVE (NEGATIVE); CLARITY,URINE CLEAR; COLOR,URINE YELLOW; GLUCOSE, URINE (UA) NEGATIVE (NEGATIVE); KETONES,URINE NEGATIVE (NEGATIVE); LEUKOCYTE ESTERASE ,URINE 2+ (NEGATIVE); NITRITE,URINE NEGATIVE (NEGATIVE); PH,URINE 7 (5-9); PROTEIN,URINE 1+ (NEGATIVE); UROBILINOGEN,URINE 1 MG/DL (NORMAL)
[2018-06-29 19:09] LABS: BACTERIA,URINE TRACE /HPF; SQUAMOUS EPITHELIAL CELL,UR 0-2 /HPF; WBC,URINE 50-100 /HPF
[2018-06-29] MEDS ORDERED: CIPR-225 PO (19:24)
[2018-06-29] MEDS ORDERED: hydrOXYzine (VISTARIL) 25 MG CAP PO ONE (19:30)
[2018-06-29 21:05] VITALS: BP 164/88
== END 2018-06-29 21:07 | disposition home or self-care (01) ==
LOC: EDUNIT# 16:44 → ER 16:46
DX: R07.89 Other chest pain (principal); N39.0 Urinary tract infection, site not specified; J42 Unspecified chronic bronchitis; I10 Essential (primary) hypertension; E78.00 Pure hypercholesterolemia, unspecified; G43.909 Migraine, unspecified, not intractable, without status migrainosus; K21.9 Gastro-esophageal reflux disease without esophagitis; E03.9 Hypothyroidism, unspecified; E11.9 Type 2 diabetes mellitus without complications; F31.9 Bipolar disorder, unspecified; F41.9 Anxiety disorder, unspecified; Z86.718 Personal history of other venous thrombosis and embolism; Z88.1 Allergy status to other antibiotic agents; Z88.0 Allergy status to penicillin; Z88.2 Allergy status to sulfonamides; Z88.6 Allergy status to analgesic agent; Z88.5 Allergy status to narcotic agent; Z98.51 Tubal ligation status; Z90.710 Acquired absence of both cervix and uterus; Z91.041 Radiographic dye allergy status
CPT/HCPCS: 36415; 51701; 71045; 80053; 81000; 83735; 83874; 83880; 84484; 85025; 85610; 85730; 87077; 87088; 87186; 93041

== ENCOUNTER → 2018-07-02 | Outpatient (CLI) | payer MEDICARE, MEDICAID | LOC: CARD 09:03 | PROVIDERS: ATTEND Internal Medicine Cardiovascular Disease | DX: I10 Essential (primary) hypertension (principal); E78.2 Mixed hyperlipidemia; E11.9 Type 2 diabetes mellitus without complications; Z72.0 Tobacco use | CPT/HCPCS: 93306 ==

== ENCOUNTER 2018-07-10 18:34 | Emergency (ER) | payer MEDICARE, MEDICAID ==
[~2018-07-10] VITALS: Ht 165.1 cm; Wt 141.5 kg
--- OUTSIDE RECORDS SUMMARY | 2018-07-10 18:40 | XMS REPORT ---
Author Author Jose Luis Paulino Organization [employer] Address Unknown Phone Unavailable Care Team Providers Care Lining Stamper Name Role Phone Jose Luis Paulino CP Unavailable Allergies, Adverse Reactions, Alerts Substance Reaction Event Type Morphine Info Not Available Non Drug Allergy Sulfa Info Not Available Non Drug Allergy Iodine Info Not Available Non Drug Allergy Erythromycin Info Not Available Non Drug Allergy Cephlasporins Info Not Available Non Drug Allergy Toradol Info Not Available Non Drug Allergy Benadryl Info Not Available Non Drug Allergy Codeine Info Not Available Non Drug Allergy PCN Info Not Available Non Drug Allergy ASA Info Not Available Non Drug Allergy Tetrcycline Info Not Available Non Drug Allergy Problems Problem Type Condition Code Onset Dates Condition Status Problem Polyosteoarthritis, unspecified M15.9 Active Problem Polyneuropathy, unspecified G62.9 Active Problem Gastro-esophageal reflux disease without esophagitis K21.9 Active Problem Diaphragmatic hernia without obstruction or gangrene K44.9 Active Problem Allergic rhinitis, unspecified J30.9 Active Problem Hyperlipidemia, unspecified E78.5 Active Problem Other constipation K59.09 Active Problem Insomnia, unspecified G47.00 Active Problem Personal history of other venous thrombosis and embolism Z86.718 Active Problem Angina pectoris, unspecified I20.9 Active Problem Chronic obstructive pulmonary disease, unspecified J44.9 Active Problem Pain, unspecified R52 Active Problem Hypothyroidism, unspecified E03.9 Active Problem Essential (primary) hypertension I10 Active Problem Primary generalized (osteo)arthritis M15.0 Active Problem Polyneuropathy in diseases classified elsewhere G63 Active Problem Anxiety disorder, unspecified F41.9 Active Problem Other lack of coordination R27.8 Active Problem Unspecified osteoarthritis, unspecified site M19.90 Active Problem Muscle weakness (generalized) M62.81 Active Problem Major depressive disorder, single episode, unspecified F32.9 Active Problem Unspecified lack of coordination R27.9 Active Assessment Personal history of other venous thrombosis and embolism Z86.718 Active Assessment Hypothyroidism, unspecified E03.9 Active Assessment Unspecified lack of coordination R27.9 Active Assessment Muscle weakness (generalized) M62.81 Active Assessment Hereditary and idiopathic neuropathy, unspecified G60.9 Active Problem Bipolar disorder, unspecified F31.9 Active Assessment Nicotine dependence, cigarettes, uncomplicated F17.210 Active Problem Stress incontinence (female) (male) N39.3 Active Problem Pain in left knee M25.562 Active Problem Localized swelling, mass and lump, left upper limb R22.32 Active Problem Patient's noncompliance with other medical treatment and regimen Z91.19 Active Problem Methicillin susceptible Staphylococcus aureus infection as the cause of diseases classified elsewhere B95.61 Active Problem Abnormal sputum R09.3 Active Problem Chronic sinusitis, unspecified J32.9 Active Assessment Abnormal sputum R09.3 Active Problem Hereditary and idiopathic neuropathy, unspecified G60.9 Active Assessment Methicillin susceptible Staphylococcus aureus infection as the cause of diseases classified elsewhere B95.61 Active Problem Other seborrheic keratosis L82.1 Active Assessment Essential (primary) hypertension I10 Active Problem Acute sinusitis, unspecified J01.90 Active Assessment Other chronic pain G89.29 Active Problem Edema, unspecified R60.9 Active Assessment Chronic obstructive pulmonary disease, unspecified J44.9 Active Problem Other chronic pain G89.29 Active Problem Generalized anxiety disorder F41.1 Active Problem Slow transit constipation K59.01 Active Problem Esophagitis, unspecified K20.9 Active Assessment Chronic sinusitis, unspecified J32.9 Active Problem Nicotine dependence, cigarettes, uncomplicated F17.210 Active Medications Medication Code System Code Instructions Start Date End Date Status Dosage Omeprazole [facility] [address]-88 20 MG Orally Twice a day 1 capsule Warfarin Sodium [facility] [address]-56 6 MG Orally Once a day 1 tablet Levothyroxine Sodium [facility] [address]-23 150 MCG Orally Once a day 1 tablet Carvedilol [facility] [address]-57 6.25 MG Orally Twice a day 1 tablet Mintox [facility] [address]-38 200-200-20 MG/5ML Orally Four times a day 10 ml as needed Tylenol Extra Strength [facility] [address]-29 500 MG Orally every 6 hrs 1 tablet as needed Loperamide HCl [facility] [address]-86 2 MG Orally 8 time(s) a day 1 capsule Potassium Chloride Faina ER [facility] [address]-49 10 MEQ Orally Once a day 1 tablet Cymbalta [facility] [address]-51 60 MG Orally Once a day 1 capsule Milk of Magnesia [facility] [address]-04 7.75 % Orally not defined ProAir HFA [facility] [address]-13 108 (90 Base) MCG/ACT Inhalation every 4 hrs 2 puffs as needed Lorazepam [facility] [address]-98 0.5 MG Orally every 6 hrs 1 tablet as needed Gabapentin [facility] [address]-28 300 MG Orally Three times a day 2 capsules at meals Tramadol HCl [facility] [address]-27 50 MG Orally every 6 hrs, maximum of #8 per day 1 or 2 tablets as needed BusPIRone HCl [facility] [address]-54 15 MG Orally Three times a day 1 tablet Topiramate [facility] [address]-80 100 MG Orally Twice a day 1 tablet Trazodone HCl [facility] [address]-12 150 MG Orally Once a day 1 tablet at bedtime Acidophilus/Pectin [facility] 85102-39178 100 MG Orally not defined Fluticasone Propionate [facility] [address]-51 50 MCG/ACT Nasally Once a day 1 spray in each nostril Duloxetine HCl [facility] [address]-17 30 MG Orally Twice a day 1 capsule Carbamazepine [facility] [address]-21 200 MG Orally Twice a day 1 tablet Abilify [facility] [address]-52 10 MG Orally Once a day 1 tablet Calcium [facility] 13588-25759 500 MG Orally Once a day 1 tablet Biotin 5000 [facility] 46911-70620 5 MG Orally Once a day 1 capsule Lidocaine [facility] [address]-47 5 % Externally Three times a day 1 application to affected area as needed Spironolactone [facility] [address]-67 25 MG Orally every other day 1 tablet Q-Tussin [facility] [address]-41 100 MG/5ML Orally every 4 hrs 10 ml as needed Coumadin [facility] [address]-36 7.5 MG Orally Once a day 1 tablet Nitrostat [facility] [address]-15 0.4 MG Sublingual not defined Zyrtec Allergy [facility] [address]-30 10 MG Orally not defined Procedures Procedure Coding System Code Date TOB USE CESS INT PRESIDENT FINANCIAL INSTITUTION CPT-4 G8453 December 07, 2015 PRESCRIP NOT GEN AT ENCOUNTE CPT-4 G8445 December 07, 2015 CURRENT TOBACCO SMOKER CPT-4 G8455 December 07, 2015 CLIN DEPRESSION SCREEN NOT D CPT-4 G8432 December 07, 2015 DOC MEDS VERIFIED W/PT OR RE CPT-4 G8427 December 07, 2015 PAIN ASSESSMENT DOCUMENT CPT-4 G8440 December 07, 2015 TX PLAN DEVELOP & DOCUMENT CPT-4 G8437 December 07, 2015 BP SYS <130 AND MATA <80 CPT-4 G8476 December 07, 2015 DOC PAIN ASSESS NO DOC F/U PLAN RNS CPT-4 G8509 December 07, 2015 SMOKE PREVEN INTERVEN COUNSE CPT-4 G8402 December 07, 2015 MOST RECENT SYSTOLIC BP <140 MM HG CPT-4 G8588 December 07, 2015 MOST RECENT DIASTOLIC BP <90 MM HG CPT-4 G8590 December 07, 2015 BMI>=30OR<22 DEL NO FOLLOWUP CPT-4 G8419 December 07, 2015 ASPIRIN/OTH ANTITHROMBOTIC TX USED CPT-4 G8598 December 07, 2015 [facility] MED/CURRENT MED MERGE CPT-4 1111F December 07, 2015 Office Visit, Est Pt., Level 3 CPT-4 33908 December 07, 2015 MOST RECENT SYSTOLIC BP < 140MM HG CPT-4 G8752 December 07, 2015 MOST RECENT DIASTOLIC BP < 90MM HG CPT-4 G8754 December 07, 2015 Vital Signs Date/Time: December 07, 2015 BMI 54.38 Index Pain Scale 7/10 1-10 Weight 307 lbs Height 63 in Respiratory Rate 20 /min Temperature 97.7 F Cardiac Monitoring Heart Rate 84 /min Oximetry 94 % Blood Pressure Diastolic 78 mm Hg Blood Pressure Systolic 124 mm Hg Results No Known Results Summary Purpose [employer] Submission
--- OUTSIDE RECORDS SUMMARY | 2018-07-10 18:40 | XMS REPORT ---
Author Author [facility] Medical Staff Organization [facility] Address [address] [facility] [place] [id number] Phone [phone] Care Team Providers Care Bus Cleaner Name Role Phone ELISEO KELLY PP [phone] Summary purpose CCDA Sent to [facility] Chief Complaint and Reason for Visit No authorized Reason for Visit (Admitting Diagnosis) is available for this visit. Problem list No authorized problems tracked for continuity of care are available for this visit. Encounters No authorized problems tracked for encounter diagnoses are available for this visit. Medications No medications recorded for this patient visit Allergies, adverse reactions, alerts No allergy information is available for this patient. Immunizations No immunizations recorded for this patient visit Relevant diagnostic tests and/or laboratory data RESULTS Chemistry Group [id number]:00:00 Result Normal Range Units Glucose 96 70-99 mg/dl BUN 11 7-26 mg/dl Creatinine 0.7 0.6-1.3 mg/dl Sodium 140 136-145 mmol/L Potassium 3.8 3.5-5.1 mmol/L Chloride H 112 98-107 mmol/L CO2 L 21 22-29 mmol/L BUN/Creatinine Ratio 16 7-25 Ratio Calcium 8.8 8.4-10.2 mg/dl Osmolality 270 261-280 mOsm/kg Anion GAP 7 5-16 mmol/L History of procedures Procedure Code Code Type Description Date Performed Performing Physician 68860 CPT-4 METABOLIC PANEL TOTAL CA 07-13-2016 ELISEO CATHERINE 34848 CPT-4 ROUTINE VENIPUNCTURE 07-13-2016 ELISEO CATHERINE Functional status No functional or cognitive status observations are available for this visit. Vital signs No authorized vital signs are available for this visit. Social history No Social History or smoking status observations were recorded for this visit. ( Unknown if ever smoked.) Treatment Plan No treatment plan text is available for this visit. Hospital discharge instructions No discharge instruction text is available for this visit.
--- OUTSIDE RECORDS SUMMARY | 2018-07-10 18:40 | XMS REPORT ---
Author Author [facility] Medical Staff Organization [facility] Address [address] [facility] [place] [id number] Phone [phone] Summary purpose CCDA Sent to [facility] Chief Complaint and Reason for Visit No [...] Relevant diagnostic tests and/or laboratory data RESULTS CBC :18:00 Result Normal Range Units WBC H 12.07 4.60-10.20 x 103/uL RBC 4.83 4.04-6.13 x 106/uL Hemoglobin 14.1 12.2-18.1 g/dl Hematocrit 45.6 37.7-53.7 % MCV 94.4 80.0-97.0 FL MCH 29.2 27.0-31.2 pg MCHC L 30.9 31.8-35.4 g/dl RDW H 17.0 11.6-14.8 % Platelets 250 142-424 x 103/uL MPV 11.4 9.4-12.4 FL Manual Diff Not Indicated Neutrophil % 67.6 37-80 % Neutrophils H 8.16 2.0-6.9 x 103/uL Lymphocyte % 24.6 10-50 % Lymphocytes 2.97 0.6-3.4 x 103/uL Monocyte % 5.7 0-12 % Monocytes 0.69 0.0-1.0 x 103/uL Eosinophil % 1.9 0-7 % Eosinophils 0.23 0-0.7 x 103/uL Basophil % 0.2 0-2 % Basophils 0.02 0.0-0.1 x 103/uL Chemistry Group :18:00 Result Normal Range Units Glucose 91 70-99 mg/dl BUN 15 7-26 mg/dl Creatinine 0.8 0.6-1.3 mg/dl Sodium 142 136-145 mmol/L Potassium 4.3 3.5-5.1 mmol/L Chloride H 109 98-107 mmol/L CO2 23 22-29 mmol/L BUN/Creatinine Ratio 19 7-25 Ratio Calcium 9.1 8.4-10.2 mg/dl Protein Total 7.1 6.4-8.3 g/dl Albumin L 3.2 3.5-5.0 g/dl A/G Ratio L 0.8 1.2-2.2 Ratio AST 13 5-34 U/L ALT 18 0-55 U/L ALP 146 40-150 U/L Bilirubin Total 0.2 0.2-1.2 mg/dl Osmolality 275 261-280 mOsm/kg Globulin H 3.9 2.4-3.5 g/dl Free T4 0.96 0.70-1.48 ng/dl TSH 3.30 0.35-4.94 uIU/mL History of procedures Procedure Code Code Type Description Date Performed Performing Physician 34308 CPT-4 COMPLETE CBC W/AUTO DIFF WBC 04-03-2016 ELISEO CATHERINE 66455 CPT-4 COMPREHEN METABOLIC PANEL 04-03-2016 ELISEO CATHERINE 98527 CPT-4 ASSAY THYROID STIM HORMONE 04-03-2016 ELISEO CATHERINE 65325 CPT-4 ASSAY OF FREE THYROXINE 04-03-2016 ELISEO CATHERINE 13781 CPT-4 ROUTINE VENIPUNCTURE 04-03-2016 ELISEO CATHERINE Functional status No functional or [...]
--- OUTSIDE RECORDS SUMMARY | 2018-07-10 18:40 | XMS REPORT ---
Author Author [facility] Medical Staff Organization [facility] Address [address] [place] [id number] Phone [phone] Care Team Providers Care Sample Builder Name Role Phone ELISEO KELLY PP [phone] Summary purpose CCDA Sent to [facility] Chief Complaint and Reason for Visit No [...] Relevant diagnostic tests and/or laboratory data RESULTS [facility] [id number] Result Normal Range Units Protime H 36.3 9.6-11.9 Sec INR 3.1 History of procedures Procedure Code Code Type Description Date Performed Performing Physician [id number] CPT-4 PROTHROMBIN TIME 06-25-2016 ELISEO CATHERINE [id number] CPT-4 ROUTINE VENIPUNCTURE 06-25-2016 ELISEO CATHERINE Functional status No functional or [...]
--- OUTSIDE RECORDS SUMMARY | 2018-07-10 18:41 | XMS REPORT | Continuity of Care Document ---
Author Author [facility] Organization [facility] Address [address] [place] [address] Phone Unavailable Care Team Providers Care File Clerk Name Role Phone ELISEO CATHERINE APRN PCP Insurance Providers Payer Name Policy Number Subscriber Name Relationship Medicare [id number] Misa Lund 18 Self / Same As Patient [employer] [address] [id number] Misa Lund 18 Self / Same As Patient Advance Directives Directive Response Recorded Date/Time Advance Directives No 11/26/15 12:22am Advance Directive on File No 04/18/16 3:29pm Durable POA for HC No 04/18/16 3:29pm Power of Public Affairs Manager No 04/18/16 3:29pm Organ Donor No 04/18/16 3:29pm Living Will No 04/18/16 3:29pm Chief Complaint and Reason for Visit Chief Complaint Back Pain-No Injury Reason for Visit Exacerbation of chronic back pain [id number] Problems Active Problems Medical Problem Onset Date Status Acute chest pain Unknown Acute Ankle sprain Unknown Acute Anxiety attack Unknown Acute Asthma exacerbation in COPD Unknown Acute Back muscle spasm Unknown Acute Chronic low back pain Unknown Acute Cigarette nicotine dependence with nicotine-induced disorder Unknown Acute Exacerbation of chronic back pain Unknown Acute Fall in elderly patient Unknown Acute Non-cardiac chest pain Unknown Acute Radiculopathy of lumbar region Unknown Acute Reflux esophagitis Unknown Acute Medications Current Home Medications Medication Dose Units Route Directions Days/Qty Instructions Start Date Lactobacillus Acidophilus 100 Mg (1 Billion Cell) 100 Mg Oral Once A Day for Supplement 11/26/15 Aripiprazole 10 Mg 10 Mg Oral Once A Day for Bipolar Disease Duloxetine Hcl 30 Mg 30 Mg Oral Once A Day for Depression 11/26/15 Duloxetine Hcl 60 Mg 60 Mg Oral Once A Day for Depression 11/26/15 Potassium Chloride 20 Meq 10 Meq Oral Once A Day for Supplement 10/11 Spironolactone 25 Mg 25 Mg Oral Every Other Day for Edema 11/26/15 Carbamazepine 400 Mg 200 Mg Oral Twice A Day for Bipolar Disease 10/11 Buspirone Hcl 15 Mg 15 Mg Oral Three Times A Day for Anxiety Albuterol Sulfate (Proair) 1 Puff 2 Puff Inhalation Every Six Hours as needed for Wheezing 11/26/15 Nicotine Polacrilex 2 Mg 2 Mg Buccal Every 2 Hours While Awake as needed for Ordered 11/26/15 Guaifenesin/Dextromethorphan 237 Ml/Bottle 10 Ml Oral Every Four Hours as needed for Cough 11/26/15 Trazodone Hcl 150 Mg 150 Mg Oral Once A Day as needed for Depression 11/26/15 Acetaminophen 500 Mg 500 Mg Oral Every Four Hours as needed for Pain/Fever 11/26/15 Cetirizine Hcl 10 Mg 10 Mg Oral Once A Day as needed for Allergies 11/26/15 Lorazepam 0.5 Mg 0.5 Mg Oral Every Six Hours as needed for Anxiety 11/26/15 Nitroglycerin 0.4 Mg 0.4 Mg Sublingual As Needed as needed for Chest Pain 11/26/15 Tramadol Hcl 50 Mg 50-100 Mg Oral Every Six Hours as needed for Pain 11/26/15 Cyclobenzaprine Hcl 10 Mg 10 Mg Oral Three Times A Day for Spasm 8 Levothyroxine Sodium 200 Mcg 200 Mcg Oral Once A Day for Thyroid Dysfunction 04/17/16 Biotin 10,000 Mcg 5,000 Mcg Oral Once A Day for Supplement 04/17/16 Carvedilol 6.25 Mg 6.25 Mg Oral Twice A Day for Hypertension Omeprazole 20 Mg 20 Mg Oral Twice A Day With Meals for Gerd 04/17/16 Topiramate 100 Mg 100 Mg Oral Twice A Day for Seizure 04/17/16 Ipratropium [place] 30 Ml 2 Spr Nasal Twice A Day for Rhinorrhea Gabapentin 300 Mg 2 Cap Oral Three Times A Day for Neuropathy [Propylhexedrine] 1 Inhaler Both Nares Every 2 Hours While Awake as needed for Congestion 04/17/16 Calcium Carbonate 300 Mg Calcium (750 Mg) 300 Mg Oral Every 2 Hours While Awake as needed for Indigestion 04/17/16 Loperamide Hcl 2 Mg 2 Cap Oral No More Than 6 In 24 as needed for Diarrhea/ Loose Stool 04/17/16 Magnesium Hydroxide 355 Ml/Bottle 30 Ml Oral Once A Day as needed for Constipation 04/17/16 Mag Hydrox/Al Hydrox/Simeth 30 Ml 30 Ml Oral Every 4 To 6 Hours As Needed as needed for Indigestion 04/17/16 Guaifenesin/Pseudoephedrne Hcl 1 Each 1 Each Oral Twice A Day as needed for Congestion 04/17/16 Past Home Medications Medication Directions Ordered Status Levothyroxine Sodium 150 Mcg Tablet, 150 Mcg Oral Once A Day for Hypothyroidism 11/26/15 Discontinued Warfarin Sodium 6 Mg Tablet, 6 Mg Oral Every Other Day for Dvt 11/26/15 Discontinued [Mintox Suspension] , 30 Ml As Needed as needed for Indigestion 11/26/15 Discontinued Guaifenesin 600 Mg Tablet.er, 600 Mg Oral Twice A Day as needed for Congestion 11/26/15 Discontinued Warfarin Sodium 7.5 Mg Tablet, 7.5 Mg Oral Odd Days for Dvt 11/26/15 Discontinued Albuterol Sulfate (Proventil) 2.5 Mg/3 Ml Vial.neb, 2.5 Mg Inhalation Every Four Hours as needed for Wheezing 11/26/15 Discontinued Prednisone 20 Mg Tablet, 20 Mg Oral Once A Day 11/30/15 Discontinued Warfarin Sodium 10 Mg Tablet, 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 Yes 04/17/2016 7:21am Do you dip or chew tobacco? No 04/17/2016 7:21am Approx how many cigs per day? 20 04/17/2016 7:21am Level of Dependence High 04/18/2016 3:49pm Former smoker, last day smoked? today 04/17/2016 7:21am Query Response Start Date Stop Date Smoking Status Current every day smoker Hospital Discharge Instructions No hospital discharge instructions. Plan of Care Discharge Date 04/18/16 4:05pm Disposition 03 D/C [facility] Condition at Discharge Stable Instructions/Education Provided Chronic Back Pain (ED) Forms Provided ER Discharge Phone Call Check Prescriptions See Medication Section Referrals ELISEO CATHERINE APRN - Additional Instructions/Education Discuss with Eliseo what plans were for your back such as Physical Therapy. Many options to try for pain: Heat, massage, ice, Tylenol, tramadol, lorazepam, lidocaine cream, trazadone if you can't sleep and continue your other meds as prescribed. Quitting smoking and losing weight will also help decrease your pain. Reference Links Functional Status Query Response Date Recorded Activities of Daily Living Performs w/o Assistance April 18, 2016 3:29pm Cognitive Function Intact April 18, 2016 3:29pm Allergies, Adverse Reactions, Alerts Allergen Type Severity Reaction Status Last Updated Iodine and Iodide Containing Produc Allergy Unknown Active 12/06/15 Penicillin Allergy Unknown Active 12/06/15 Cephalosporins Allergy Unknown Active 12/06/15 Sulfa (Sulfonamide Antibiotics) ([id number]) Allergy Unknown Active 08/10 Morphine Allergy Unknown Active 11/26/15 Codeine Allergy Unknown Active 11/26/15 Aspirin Allergy Unknown Active 11/26/15 Tetracycline Allergy Unknown Active 11/26/15 Erythromycin base Allergy Unknown Active 11/26/15 Diphenhydramine Allergy Unknown Active 11/26/15 Ketorolac Allergy Unknown Active 11/26/15 Immunizations No immunization records. Vital Signs Acute Vital Signs Vital Response Date/Time Temperature (Fahrenheit) 97.8 degrees F (97.6 - 99.5) 04/18/2016 4:00pm Temperature (Calculated Celsius) 36.81563 degrees C (36.4 - 37.5) 04/18/2016 4:00pm Temperature Source Temporal Artery Scan 04/18/2016 4:00pm Pulse Pulse Ox Pulse Rate (adult) 72 beats per minute (60 - 90) 04/18/2016 4:00pm Pulse Location Modifier Left 04/18/2016 4:00pm Oxygen Saturation Respiratory Rate 16 breaths per minute (12 - 24) 04/18/2016 4:00pm O2 Sat by Pulse Oximetry 93 % (90 - 100) 04/18/2016 4:00pm Blood Pressure 132/76 mm Hg 04/18/2016 4:00pm Blood Pressure Mean 94 mm Hg 04/18/2016 4:00pm Height 5 ft 5 in Weight 309 lb Body Mass Index 51.4 kg/m^2 Results Laboratory Results Test Name Result Units Flags Reference Collection Date/Time Result Date/ Time Comments White Blood Count 12.0 x10^3/uL H 4.0-11.0 11/26/2015 12:2015 12:38am Red Blood Count 4.55 10^6/uL 3.80-5.80 11/26/2015 12:11/26/2015 12 :38am Hematocrit 43.0 % 37.0-47.0 11/26/2015 12:11/26/2015 12:38am Mean Corpuscular Volume 95 fl 76-96 11/26/2015 12:11/26/2015 12: 38am Mean Corpuscular Hemoglobin 29.9 pg 27.0-32.0 11/26/2015 12:2015 12:38am Mean Corpuscular Hemoglobin Concent 31.6 g/dl 31.0-35.0 11/26/2015 12: 11/26/2015 12:38am Red Cell Distribution Width 16.0 % 11.0-16.0 11/26/2015 12:2015 12:38am Platelet Count 248 10^3/uL 150-500 11/26/2015 12:11/26/2015 12: 38am Mean Platelet Volume 9.7 fl 6.0-10.0 11/26/2015 12:11/26/2015 12: 38am Neutrophils (%) (Auto) 61.2 % 45.0-70.0 11/26/2015 12:11/26/2015 12:38am Lymphocytes (%) (Auto) 28.9 % 20.0-40.0 11/26/2015 12:11/26/2015 12:38am Monocytes (%) (Auto) 7.2 % 3.0-10.0 11/26/2015 12:11/26/2015 12: 38am Eosinophils (%) (Auto) 2.3 % 1.0-5.0 11/26/2015 12:11/26/2015 12: 38am Basophils (%) (Auto) 0.4 % 0.0-0.5 11/26/2015 12:11/26/2015 12: 38am Neutrophils # (Auto) 7.33 x10^3/uL 2.00-7.50 11/26/2015 12:2015 12:38am Lymphocytes # (Auto) 3.47 x10^3/uL 1.50-4.00 11/26/2015 12:2015 12:38am Monocytes # (Auto) 0.86 x10^3/uL H 0.20-0.80 11/26/2015 12:2015 12:38am Eosinophils # (Auto) 0.28 x10^3/uL 0.04-0.40 11/26/2015 12:2015 12:38am Basophils # (Auto) 0.05 x10^3/uL 0.02-0.10 11/26/2015 12:2015 12:38am Sodium Level 140 mmol/L 137-145 11/26/2015 12:11/26/2015 1:02am Potassium Level 4.4 mmol/L 3.5-5.1 11/26/2015 12:11/26/2015 1: 02am Carbon Dioxide Level 26.4 mmol/L 22-30 11/26/2015 12:11/26/2015 1: 02am Anion Gap 13.0 mEq/L 8-16 11/26/2015 12:11/26/2015 1:02am Blood Urea Nitrogen 12 mg/dL 7-17 11/26/2015 12:11/26/2015 1:02am Creatinine 0.83 mg/dl 0.52-1.04 11/26/2015 12:11/26/2015 1:02am Est Glomerular Filtrat Rate mL/min 70.36 11/26/2015 12:2015 1:02am GFR NORMALS: Stage I: GFR >90 Stage II GFR 60-89 Stage III GFR 30-60 Stage IV: GFR 15-29 Stage V: GFR <15 BUN/Creatinine Ratio 14.45 11/26/2015 12:11/26/2015 1:02am Glucose Level 110 mg/dL H 74-106 11/26/2015 12:11/26/2015 1:02am Calculated Osmolality 290.2 mosm/kg 273-304 11/26/2015 12:2015 1:02am Calcium Level 8.5 mg/dL 8.4-10.2 11/26/2015 12:11/26/2015 1:02am Total Bilirubin 0.2 mg/dL 0.2-1.3 11/26/2015 12:11/26/2015 1:02am Aspartate Amino Transf (AST/SGOT) 9 U/L L 14-36 11/26/2015 12:11/25 1:02am Alanine Aminotransferase (ALT/SGPT) 17 U/L 9-52 11/26/2015 12:09/2015 1:02am Alkaline Phosphatase 131 U/L H 38-126 11/26/2015 12:11/26/2015 1: 02am Total Creatine Kinase 46 U/L 30-135 11/26/2015 12:11/26/2015 1: 02am Pro-B-Type Natriuretic Peptide 31 pg/mL 0-125 11/26/2015 12:2015 1:02am Troponin < 0.05 mg/mL 0-0.056 11/26/2015 12:11/26/2015 1:02am Creatine Kinase MB 0.9 ng/mL 0-3.6 11/26/2015 12:11/26/2015 1: 02am Total Protein 7.6 g/dL 6.4-8.4 11/26/2015 12:11/26/2015 1:02am Albumin 2.8 g/dL L 3.4-5.5 11/26/2015 12:21am 11/26/2015 1:02am Globulin 4.8 H 2.3-3.5 11/26/2015 12:21am 11/26/2015 1:02am Albumin/Globulin Ratio 0.583 11/26/2015 12:21am 11/26/2015 1:02am Amylase Level 32 U/L 30-110 11/26/2015 12:21am 11/26/2015 1:02am Lipase 130 U/L 23-300 11/26/2015 12:21am 11/26/2015 1:02am Pending Laboratory Results Test Name Collection Date/Time Procedures Procedure Status Date Provider(s) ROUTINE VENIPUNCTURE Completed 11/25/15 COMPREHEN METABOLIC PANEL Completed 11/25/15 ASSAY OF AMYLASE Completed 11/25/15 ASSAY OF CK (CPK) Completed 11/25/15 CREATINE MB FRACTION Completed 11/25/15 ASSAY OF LIPASE Completed 11/25/15 ASSAY OF NATRIURETIC PEPTIDE Completed 11/25/15 ASSAY OF TROPONIN QUAL Completed 11/25/15 COMPLETE CBC W/AUTO DIFF WBC Completed 11/25/15 THER/PROPH/DIAG INJ IA Completed 11/25/15 EMERGENCY DEPT VISIT Completed 11/25/15 INJECTION, LORAZEPAM, 2 MG Completed INJECTION, MEPERIDINE HYDROCHLORIDE, PER 100 MG Completed INJECTION, METOCLOPRAMIDE HCL, UP TO 10 MG Completed INFUSION, NORMAL SALINE SOLUTION , 250 CC Completed INJECTION, PANTOPRAZOLE SODIUM, 40 MG Completed EMERGENCY DEPT VISIT Completed 11/25/15 THER/PROPH/DIAG INJ IV PUSH Completed 11/25/15 TX/PRO/DX INJ NEW DRUG ADDON Completed 11/25/15 TX/PRO/DX INJ NEW DRUG ADDON Completed 11/25/15 X-RAY EXAM OF KNEE 3 Completed 11/27/15 THER/PROPH/DIAG INJ IA Completed 11/27/15 EMERGENCY DEPT VISIT Completed 11/27/15 INJECTION, MEPERIDINE HYDROCHLORIDE, PER 100 MG Completed EMERGENCY DEPT VISIT Completed 11/27/15 EMERGENCY DEPT VISIT Completed 11/30/15 EMERGENCY DEPT VISIT Completed 12/03/15 THER/PROPH/DIAG INJ IA Completed 12/06/15 EMERGENCY DEPT VISIT Completed 04/12/16 INJECTION, DIAZEPAM, UP TO 5 MG Completed EMERGENCY DEPT VISIT Completed 12/06/15 Encounters Encounter Location Arrival/Admit Date Discharge/Depart Date Attending Provider Departed Emergency Room [facility] 04/18/16 2:25pm 04/18/16 4: 05pm SARITHA DICK MD Departed Emergency Room [facility] 04/17/16 7:15am 04/17/16 8: 07am IAN BROOKS APRN Registered [facility] 03/06/16 8:34am LONGELISEO A DENTAL CERAMIST HELPER Registered [facility] 02/20/16 9:23am LONG, MARDIE A DENTAL CERAMIST HELPER Registered [facility] 02/06/16 8:43am LONG, MARDIE A DENTAL CERAMIST HELPER Registered [facility] 02/01/16 9:28am ALVARO PATEL MD Registered [facility] 01/30/16 9:56am LONG, MARDIE A DENTAL CERAMIST HELPER Registered [facility] 01/24/16 2:29pm DORENE, MARDIE A DENTAL CERAMIST HELPER Registered [facility] 01/18/16 10:02am LONG, MARDIE A DENTAL CERAMIST HELPER Registered [facility] 01/17/16 9:44am LONG, MARDIE A DENTAL CERAMIST HELPER Registered [facility] 01/16/16 8:27am LONG, MARDIE A DENTAL CERAMIST HELPER Registered [facility] 01/13/16 10:10am LONG, MARDIE A DENTAL CERAMIST HELPER Registered [facility] 01/09/16 11:09am LONG, MARDIE A DENTAL CERAMIST HELPER Registered [facility] 01/04/16 8:29am LONG, MARDIE A DENTAL CERAMIST HELPER Registered [facility] 01/02/16 1:29pm LONG, MARDIE A DENTAL CERAMIST HELPER Registered [facility] 12/29/15 3:42pm KARTHIK CATHERINEE A DENTAL CERAMIST HELPER Departed Emergency Room [facility] 12/06/15 5:08am 12/06/15 6: 30am IAN BROOKS APRN Departed Emergency Room [facility] 12/03/15 9:25pm 12/03/15 11: 58pm DERREK HOLLIDAY NP Departed Emergency Room [facility] 11/30/15 9:48pm 11/30/15 11: 55pm NUPUR GUILLORY APRN Departed Emergency Room [facility] 11/27/15 9:00pm 11/27/15 9: 45pm MEME MILLS APRN Departed Emergency Room [facility] 11/25/15 11:58pm 11/26/15 2: 00am MEME MILLS APRN Recent Diagnosis
--- OUTSIDE RECORDS SUMMARY | 2018-07-10 18:41 | XMS REPORT | Continuity of Care Document ---
Author Author [facility] Organization [facility] Address [address] [place] [address] Phone Unavailable Care Team Providers Care Supply Chain Tech Name Role Phone CORNELIA CATHERINENIKIIram Contreras PHARMACEUTICAL PROCESS ENGINEER PCP Insurance Providers Payer Name Policy Number Subscriber Name Relationship Medicare [id number] Misa Lund 19 Self / Same As Patient [employer] [address] [id number] Misa Lund Self / Same As Patient Advance Directives Directive Response Recorded Date/Time Advance Directives No 11/26/15 12:22am Advance Directive on File No 08/05/16 8:16pm Durable POA for HC No 08/05/16 8:16pm Power of Qualified Craft Worker Electrician No 08/05/16 8:16pm Organ Donor No 08/05/16 8:16pm Living Will No 08/05/16 8:16pm Chief Complaint and Reason for Visit Chief Complaint Multiple Trauma/Fall Reason for Visit Exacerbation of chronic back pain Fall in elderly patient Spondylosis of lumbosacral region Compression fracture of lumbar vertebra Problems Active Problems Medical Problem Onset Date Status Acute chest pain Unknown Acute Ankle sprain Unknown Acute Anxiety attack Unknown Acute Asthma exacerbation in COPD Unknown Acute Back muscle spasm Unknown Acute Chronic low back pain Unknown Acute Cigarette nicotine dependence with nicotine-induced disorder Unknown Acute Compression fracture of lumbar vertebra Unknown Acute Contusion Unknown Acute Exacerbation of chronic back pain Unknown Acute Fall in elderly patient Unknown Acute Non-cardiac chest pain Unknown Acute Radiculopathy of lumbar region Unknown Acute Reflux esophagitis Unknown Acute Spondylosis of lumbosacral region Unknown Acute Medications Current Home Medications Medication [...] Six Hours as needed for Pain 11/26/15 Levothyroxine Sodium 200 Mcg 200 Mcg Oral [...] Twice A Day for Seizure 04/17/16 Ipratropium [place] 30 Ml 2 Spr Nasal Twice A [...] A Day as needed for Congestion 04/17/16 Amlodipine Besylate 5 Mg 5 Mg Oral Once A Day for Hypertension 07/16 Lisinopril 2.5 Mg 2.5 Mg Oral Once A Day for Hypertension 07/16/16 Hydralazine Hcl 50 Mg 50 Mg Oral Once A Day as needed for Itching Warfarin Sodium 7.5 Mg 15 Mg Oral Sun,Mon,Wed,Fri,Sat for Blood Thinning 07/16/16 Warfarin Sodium 7.5 Mg 7.5 Mg Oral Tu,Sindy for Blood Thinning Nystatin 1 Aps 1 Aps Topical Twice A Day for Under Breast Folds Past Home Medications Medication Directions Ordered Status [...] Mg Oral Once A Day 11/30/15 Discontinued Cyclobenzaprine Hcl 10 Mg Tablet, 10 Mg Oral Three Times A Day for Spasm Discontinued Warfarin Sodium 10 Mg Tablet, 10 Mg Oral Tue&Thurs for Thromboembolic Disease 04/17/16 Discontinued Warfarin Sodium 7.5 Mg Tablet, 7.5 Mg Oral Sun,Mon,Wed,Fri,Sat for Thromboembolic Disease 04/17/16 Discontinued Nystatin 1 Aps Powder, 1 Aps Topical Twice A Day as needed for Irritation Discontinued Lidocaine Hcl 4 % Cream..g., 76.5 Gm Topical Four Times A Day as needed for Pain 04/17/16 Discontinued [Vancomycin Hcl] , 1 Nebullizer Twice A Day for Mrsa 07/16/16 Discontinued Social History Social History Problem Response Recorded Date/Time Alcohol Use none 08/05/2016 8:51pm Drug Use none 08/05/2016 8:51pm Smoking Status Current every day smoker 08/05/2016 8:17pm Smoked in the last 12 months? Yes 08/05/2016 8:17pm Do you dip or chew tobacco? Yes 08/05/2016 8:17pm Approx how many cigs per day? 20 08/05/2016 8:17pm Level of Dependence High 08/05/2016 8:17pm Former smoker, last day smoked? today 08/05/2016 8:17pm Query Response Start Date Stop Date Smoking Status Current every day smoker Hospital Discharge Instructions No hospital discharge instructions. Plan of Care Discharge Date 08/05/16 10:40pm Disposition 63 D/C LTC FACILITY Condition at Discharge Improved Instructions/Education Provided Fall Prevention for Older Adults (ED) Forms Provided ER Discharge Phone Call Check Prescriptions See Medication Section Referrals ELISEO CATHERINE APRN - Additional Instructions/Education Ice anything that hurts x 24 hours. After 24 hours, consider application of warm/moist packs as needed for pain. 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 You have six vertebrae to your lumbar spine (most people only have 5). There was slight compression noted to the L6 vertebral body. There is no specific treatment for this apart from pain control and preventing future falls. There are several other degenerative changes of your spine, which are not due to today's fall. If you suffer from back pain on a daily basis, I would recommend evaluation by an orthopedic or neurosurgeon, who specializes in spinal procedures. Your primary care provider can assist you in a referral if needed. Reference Links Winter weather safety Functional Status Query Response Date Recorded Activities of Daily Living Performs w/o Assistance August 05, 2016 8:17pm Cognitive Function Intact August 05, 2016 8:17pm Allergies, Adverse Reactions, Alerts Allergen Type Severity Reaction Status Last Updated Iodine and Iodide Containing Produc Allergy Unknown Active 12/06/15 Penicillin Allergy Unknown Active 12/06/15 Cephalosporins Allergy Unknown Active 12/06/15 Sulfa (Sulfonamide Antibiotics) ([id number]) Allergy Unknown Active 08/10 Morphine Allergy Unknown Active 11/26/15 Codeine Allergy Unknown Active 11/26/15 Aspirin Allergy Unknown Active 11/26/15 Tetracycline Allergy Unknown Active 11/26/15 Erythromycin base Allergy Unknown Active 11/26/15 Diphenhydramine Allergy Unknown Active 11/26/15 Ketorolac Allergy Unknown Active 11/26/15 Immunizations No immunization records. Vital Signs Acute Vital Signs Vital Response Date/Time Temperature (Fahrenheit) 98.2 degrees F (97.6 - 99.5) 08/05/2016 10:22pm Temperature (Calculated Celsius) 36.07152 degrees C (36.4 - 37.5) 08/05/2016 10:22pm Temperature Source Oral 08/05/2016 10:22pm Pulse Pulse Ox Pulse Rate (adult) 76 beats per minute (60 - 90) 08/05/2016 10:22pm Pulse Location Modifier Left 08/05/2016 10:22pm Oxygen Saturation Respiratory Rate 20 breaths per minute (12 - 24) 08/05/2016 10:22pm O2 Sat by Pulse Oximetry 94 % (90 - 100) 08/05/2016 10:22pm Blood Pressure 117/78 mm Hg 08/05/2016 10:22pm Blood Pressure Mean 91 mm Hg 08/05/2016 10:22pm Height 5 ft 5 in Weight 310 lb Body Mass Index 51.6 kg/m^2 Results Laboratory Results Test Name Result Units Flags Reference Collection Date/Time Result Date/ Time Comments White Blood Count 12.0 x10^3/uL H 4.0-11.0 11/26/2015 12:21am 2015 12:38am Red Blood Count 4.55 10^6/uL 3.80-5.80 11/26/2015 12:21am 11/26/2015 12 :38am Hematocrit 43.0 % 37.0-47.0 11/26/2015 [...] Transf (AST/SGOT) 9 U/L L 14-36 11/26/2015 12:21am 11/25 1:02am Alanine Aminotransferase (ALT/SGPT) 17 U/L 9-52 11/26/2015 12:am 09/2015 1:02am Alkaline Phosphatase 131 U/L H 38-126 11/26/2015 12:21am 11/26/2015 1: 02am Total Creatine Kinase 46 U/L 30-135 11/26/2015 12:11/26/2015 1: 02am Pro-B-Type Natriuretic Peptide 31 pg/mL 0-125 11/26/2015 12:21am 2015 1:02am Troponin < 0.05 mg/mL 0-0.056 11/26/2015 12:11/26/2015 1:02am Creatine Kinase MB 0.9 ng/mL 0-3.6 11/26/2015 12:11/26/2015 1: 02am Total Protein 7.6 g/dL 6.4-8.4 11/26/2015 12:21am 11/26/2015 1:02am Albumin 2.8 g/dL L 3.4-5.5 11/26/2015 12:21am 11/26/2015 1:02am Globulin 4.8 H 2.3-3.5 11/26/2015 12:am 11/26/2015 1:02am Albumin/Globulin Ratio 0.583 11/26/2015 12:21am [...] IA Completed 12/06/15 EMERGENCY DEPT VISIT Completed 12/06/15 INJECTION, DIAZEPAM, UP TO 5 MG Completed EMERGENCY DEPT VISIT Completed 12/06/15 THER/PROPH/DIAG INJ IA Completed 04/17/16 EMERGENCY DEPT VISIT Completed 04/17/16 EMERGENCY DEPT VISIT Completed 04/17/16 INJECTION, MEPERIDINE HYDROCHLORIDE, PER 100 MG Completed INJECTION, ORPHENADRINE CITRATE, UP TO 60 MG Completed THER/PROPH/DIAG INJ IA Completed 04/18/16 EMERGENCY DEPT VISIT Completed 04/18/16 INJECTION, MEPERIDINE HYDROCHLORIDE, PER 100 MG Completed INJECTION, ORPHENADRINE CITRATE, UP TO 60 MG Completed EMERGENCY DEPT VISIT Completed 04/18/16 CHEST X-RAY 2VW FRONTAL&LATL Completed 06/29/16 THER/PROPH/DIAG INJ IA Completed 06/29/16 EMERGENCY DEPT VISIT Completed 06/29/16 EMERGENCY DEPT VISIT Completed 06/29/16 INJECTION, MEPERIDINE HYDROCHLORIDE, PER 100 MG Completed X-RAY EXAM HIP UNI 2-3 VIEWS Completed 07/16/16 X-RAY EXAM OF KNEE 3 Completed 07/16/16 EMERGENCY DEPT VISIT Completed 07/16/16 EMERGENCY DEPT VISIT Completed 07/16/16 EMERGENCY DEPT VISIT Completed 07/19/16 X-RAY EXAM NECK SPINE 2-3 VW Completed 07/31/16 EMERGENCY DEPT VISIT Completed 07/31/16 INJECTION, MEPERIDINE HYDROCHLORIDE, PER 100 MG Completed EMERGENCY DEPT VISIT Completed 07/31/16 Encounters Encounter Location Arrival/Admit Date Discharge/Depart Date Attending Provider Departed Emergency Room [facility] 08/05/16 8:05pm 08/05/16 10: 40pm MEME MILLS APRN Departed Emergency Room [facility] 07/31/16 7:09pm 07/31/16 10: 30pm ABDIEL ROMERO MD Departed Emergency Room [facility] 07/19/16 10:07pm 07/20/16 12: 45am BENIGNO PALACIOS MD Departed Emergency Room [facility] 07/16/16 9:22pm 07/16/16 10: 35pm IAN BROOKS APRN Departed Emergency Room [facility] 06/29/16 10:15pm 06/30/16 12: 05am ABDIEL ROMERO MD Registered [facility] 04/25/16 12:21pm ELISEO CATHERINE APRN Departed Emergency Room [facility] 04/18/16 2:25pm 04/18/16 4: 05pm ABDIEL ROMERO MD Departed Emergency Room [facility] 04/17/16 7:15am 04/17/16 8: 07am IAN BROOKS APRN Registered [facility] 03/06/16 8:34am ELISEO CATHERINE APRN Registered [facility] 02/20/16 9:23am ELISEO CATHERINE APRN Registered [facility] 02/06/16 8:43am ELISEO CATHERINE APRN Registered [facility] 02/01/16 9:28am ALVARO PATEL MD Registered [facility] 01/30/16 9:56am ELISEO CATHERINE APRN Registered [facility] 01/24/16 2:29pm ELISEO CATHERINE APRN Registered [facility] 01/18/16 10:02am ELISEO CATHERINE APRN Registered [facility] 01/17/16 9:44am LONG, ELISEO A PHARMACEUTICAL PROCESS ENGINEER Registered [facility] 01/16/16 8:27am LONG, ELISEO A PHARMACEUTICAL PROCESS ENGINEER Registered [facility] 01/13/16 10:10am LONG, ELISEO A PHARMACEUTICAL PROCESS ENGINEER Registered [facility] 01/09/16 11:09am LONG, ELISEO A PHARMACEUTICAL PROCESS ENGINEER Registered [facility] 01/04/16 8:29am LONG, ELISEO A PHARMACEUTICAL PROCESS ENGINEER Registered [facility] 01/02/16 1:29pm LONG, ELISEO A PHARMACEUTICAL PROCESS ENGINEER Registered [facility] 12/29/15 3:42pm ELISEO CATHERINE APRN Departed Emergency Room [facility] 12/06/15 5:08am 12/06/15 6: 30am IAN BROOKS APRN Departed Emergency Room [facility] 12/03/15 9:25pm 12/03/15 11: 58pm DERREK HOLLIDAY NP Departed Emergency Room [facility] 11/30/15 9:48pm 11/30/15 11: 55pm NUPUR GUILLORY APRN Departed Emergency Room [facility] 11/27/15 9:00pm 11/27/15 9: 45pm MEME MILLS APRN Departed Emergency Room [facility] 11/25/15 11:58pm 11/26/15 2: 00am MEME MILLS APRN Recent Diagnosis
--- OUTSIDE RECORDS SUMMARY | 2018-07-10 18:42 | XMS REPORT | Continuity of Care Document ---
Author Author [facility] Organization [facility] Address [address] [place] [address] Phone Unavailable Care Team Providers Care Inventory Control/Shipping Receiving Name Role Phone ELISEO CATHERINE APRN PCP Insurance Providers Payer Name Policy Number Subscriber Name Relationship Medicare [id number] Misa Lund 19 Self / Same As Patient [employer] [address] [id number] Misa Lund Self / Same As Patient Advance Directives Directive Response Recorded Date/Time Advance Directives No 11/26/15 12:22am Advance Directive on File No 06/29/16 10:17pm Durable POA for HC No 06/29/16 10:17pm Power of Pneumatic Tool Operator No 06/29/16 10:17pm Organ Donor No 06/29/16 10:17pm Living Will No 06/29/16 10:17pm Chief Complaint and Reason for Visit Chief Complaint Chest Pain-Non Cardiac Nature Reason for Visit Non-cardiac chest pain Problems Active Problems Medical Problem Onset Date [...] Twice A Day for Seizure 04/17/16 Ipratropium [place] 30 Ml 2 Spr Nasal Twice A [...] History Social History Problem Response Recorded Date/Time Smoking Status Current every day smoker 06/29/2016 10:18pm Smoked in the last 12 months? Yes 06/29/2016 10:18pm Do you dip or chew tobacco? Yes 06/29/2016 10:18pm Approx how many cigs per day? 20 06/29/2016 10:18pm Level of Dependence Low 06/29/2016 10:18pm Former smoker, last day smoked? today 06/29/2016 10:18pm Query Response Start Date Stop Date Smoking Status Current every day smoker Hospital Discharge Instructions No hospital discharge instructions. Plan of Care Discharge Date 06/30/16 12:05am Disposition 01 D/C HOME Condition at Discharge Stable Instructions/Education Provided Noncardiac Chest Pain (ED) Forms Provided ER Discharge Phone Call Check Prescriptions See Medication Section Referrals ELISEO CATHERINE APRN - Additional Instructions/Education A cold packwill sometimes help this. If it is geting worse, consider seeing a pain specialist for a cortisone injection here. Reference Links Reference Text What is pleuritic chest pain? Pleuritic chest pain is a type of sharp, stabbing pain that gets worse when you breathe in and even worse when you take a deep breath. It is often caused by problems with the thin layers of tissue that surround the lungs (called the "pleura"). Pain from the ribs or muscles lying over the ribs can cause a similar chest pain. What causes pleuritic chest pain? Pleuritic chest pain can be caused by the following lung problems: ?Pneumothorax A pneumothorax is when air gets trapped between the lung and the rib cage (figure 1). This air presses on the lung and causes it to deflate or collapse. Causes of pneumothorax include injuries to the chest, cigarette smoking, and certain lung infections. ?Pleural effusion Pleural effusion is when fluid builds up in the space between the lung and the rib cage. Causes of pleural effusion include tumors, pneumonia (an infection in the lungs), and blood clots in the lungs. ?Pleuritis Pleuritis is the medical term for inflammation of the pleura. This can also be called "pleurisy." The most common cause of pleuritis is infection, but it can also be caused by lupus, rheumatoid arthritis, and certain medicines. ?Empyema Empyema is the medical term for an infection in the fluid between the lung and the rib cage. ?Pericarditis Pericarditis is a term for inflammation of the tissues around the heart. Sometimes the pain from pericarditis is similar to pleuritic chest pain. Should I see a doctor or nurse? Yes, if you have stabbing chest pain that gets worse when you breathe in and lasts more than a few minutes, see a doctor or nurse right away. Are there tests I should have? Your doctor or nurse will decide which tests you should have based on your age, other symptoms, and individual situation. Here are the most common tests doctors use to find the cause of pleuritic chest pain: ?Blood tests Blood tests can show whether you are fighting an infection, whether there is an infection in your blood, and whether your blood has certain proteins that get released into the blood during a heart attack. ?Pulse oximetry This test uses a small device that goes on your finger. It checks the amount of oxygen in your blood. ?Chest X-ray A chest X-ray can show if the lungs are inflating all the way. It can also show if there is air or fluid between the lungs and the ribcage. ?CT scan A chest CT scan can show if there is a blood clot in the lung, and find other causes of pleuritic pain. ?Thoracentesis During this procedure, doctors use a needle to take some fluid from around the lungs. Then they can test the fluid for infection and find out what kind of cells it has in it. (This test is only for people who have fluid around the lungs.) ?Heart tests Because heart problems can cause chest pain, some people with pleuritic chest pain have heart tests. These tests could include an electrocardiogram (ECG), which measures the electrical activity of the heart, or an echocardiogram, which uses sound waves to create pictures of the heart as it beats. How is pleuritic chest pain treated? That depends on what kind of problem is causing the pain. ?Pneumothorax Sometimes a pneumothorax will heal on its own. If a pneumothorax is too big to heal on its own, doctors can drain the air in the pneumothorax using a tube (called a chest tube). ?Pneumonia with empyema caused by bacteria If the pain is caused by a bacterial infection in the fluid around the lung, doctors can treat the infection with antibiotics. Often they also use a chest tube to help drain the infection. ?Blood clot If the pain is caused by a blood clot, doctors give medicine that dissolves clots or keeps them from getting bigger. ?Medicines If a medicine is causing pleuritis, doctors might stop or switch the medicine. ?Viral infection If the pain is not caused by any of the problems listed above, it is probably caused by a viral infection. Viral infections usually go away on their own after a few days or a couple of weeks. To help with pain in the meantime, doctors often suggest pain-relieving medicines, such as ibuprofen (sample brand names: Advil, Motrin) or naproxen Functional Status Query Response Date Recorded Activities of Daily Living Performs w/o Assistance June 29, 2016 10:18pm Cognitive Function Intact June 29, 2016 10:18pm Allergies, Adverse Reactions, Alerts Allergen Type Severity Reaction Status Last Updated Iodine and Iodide Containing Produc Allergy Unknown Active 12/06/15 Penicillin Allergy Unknown Active 12/06/15 Cephalosporins Allergy Unknown Active 12/06/15 Sulfa (Sulfonamide Antibiotics) ([id number]) Allergy Unknown Active 08/10 Morphine Allergy Unknown Active 11/26/15 Codeine Allergy Unknown Active 11/26/15 Aspirin Allergy Unknown Active 11/26/15 Tetracycline Allergy Unknown Active 11/26/15 Erythromycin base Allergy Unknown Active 11/26/15 Diphenhydramine Allergy Unknown Active 11/26/15 Ketorolac Allergy Unknown Active 11/26/15 Immunizations No immunization records. Vital Signs Acute Vital Signs Vital Response Date/Time Temperature (Fahrenheit) 98.3 degrees F (97.6 - 99.5) 06/29/2016 10:15pm Temperature (Calculated Celsius) 36.20993 degrees C (36.4 - 37.5) 06/29/2016 10:15pm Temperature Source Temporal Artery Scan 04/18/2016 4:00pm Pulse Pulse Ox Pulse Rate (adult) 72 beats per minute (60 - 90) 06/29/2016 11:30pm Pulse Location Modifier Left 04/18/2016 4:00pm Oxygen Saturation Respiratory Rate 20 breaths per minute (12 - 24) 06/29/2016 11:30pm O2 Sat by Pulse Oximetry 96 % (90 - 100) 06/29/2016 11:30pm Blood Pressure 112/64 mm Hg 06/29/2016 11:30pm Blood Pressure Mean 80 mm Hg 06/29/2016 11:30pm Height 5 ft 5 in Weight 309 [...] 1:02am Albumin 2.8 g/dL L 3.4-5.5 11/26/2015 12:11/26/2015 1:02am Globulin 4.8 H 2.3-3.5 11/26/2015 12:11/26/2015 1:02am Albumin/Globulin Ratio 0.583 11/26/2015 12:11/26/2015 1:02am Amylase Level 32 U/L 30-110 11/26/2015 12:11/26/2015 1:02am Lipase 130 U/L 23-300 11/26/2015 12:11/26/2015 1:02am Pending Laboratory Results Test Name Collection [...] MG Completed EMERGENCY DEPT VISIT Completed 04/18/16 Encounters Encounter Location Arrival/Admit Date Discharge/Depart Date Attending Provider Departed Emergency Room [facility] 06/29/16 10:15pm 06/30/16 12: 05am ABDIEL ROMERO MD Registered [facility] 04/25/16 12:21pm ELISEO CATHERINE APRN Departed Emergency Room [facility] 04/18/16 2:25pm 04/18/16 4: 05pm ABDIEL ROMERO MD Departed Emergency Room [facility] 04/17/16 7:15am 04/17/16 8: 07am IAN BROOKS APRN Registered [facility] 03/06/16 8:34am LONG, KARTHIKE A COMPENSATION ANALYST Registered [facility] 02/20/16 9:23am LONG, MARDIE A COMPENSATION ANALYST Registered [facility] 02/06/16 8:43am LONG, MARDIE A COMPENSATION ANALYST Registered [facility] 02/01/16 9:28am ALVARO PATEL MD Registered [facility] 01/30/16 9:56am LONG, MARDIE A COMPENSATION ANALYST Registered [facility] 01/24/16 2:29pm LONG, MARDIE A COMPENSATION ANALYST Registered [facility] 01/18/16 10:02am LONG, MARDIE A COMPENSATION ANALYST Registered [facility] 01/17/16 9:44am LONG, MARDIE A COMPENSATION ANALYST Registered [facility] 01/16/16 8:27am LONG, MARDIE A COMPENSATION ANALYST Registered [facility] 01/13/16 10:10am LONG, MARDIE A COMPENSATION ANALYST Registered [facility] 01/09/16 11:09am LONG, MARDIE A COMPENSATION ANALYST Registered [facility] 01/04/16 8:29am LONG, MARDIE A COMPENSATION ANALYST Registered [facility] 01/02/16 1:29pm LONG, MARDIE A COMPENSATION ANALYST Registered [facility] 12/29/15 3:42pm DORENE MARDIE A COMPENSATION ANALYST Departed Emergency Room [facility] 12/06/15 5:08am 12/06/15 6: 30am IAN BROOKS APRN Departed Emergency Room [facility] 12/03/15 9:25pm 12/03/15 11: 58pm DERREK HOLLIDAY NP Departed Emergency Room [facility] 11/30/15 9:48pm 11/30/15 11: 55pm NUPUR GUILLORY APRN Departed Emergency Room [facility] 11/27/15 9:00pm 11/27/15 9: 45pm MEME MILLS APRN Departed Emergency Room [facility] 11/25/15 11:58pm 11/26/15 2: 00am MEME MILLS APRN Recent Diagnosis
--- OUTSIDE RECORDS SUMMARY | 2018-07-10 18:42 | XMS REPORT | Continuity of Care Document ---
Author Author [facility] Address [address] [place] [address] Phone Unavailable Care Team Providers Care Supervisor [employer]um [employer] Name Role Phone ELISEO CATHERINE APRN PCP Insurance Providers Payer Name Policy Number Subscriber Name Relationship Medicare [id number] Misa Lund 18 Self / Same As Patient [employer] [address] [id number] Misa Lund 18 Self / Same As Patient Advance Directives Directive Response Recorded Date/Time Advance Directives No 11/26/15 12:22am Advance Directive on File No 04/17/16 7:21am Durable POA for HC No 04/17/16 7:21am Power of Geomatics Professor No 04/17/16 7:21am Organ Donor No 04/17/16 7:21am Living Will No 04/17/16 7:21am Chief Complaint and Reason for Visit Chief Complaint Back Pain-No Injury Reason for Visit Chronic low back pain Exacerbation of chronic back pain Cigarette nicotine dependence with nicotine-induced disorder Problems Active Problems Medical Problem Onset Date Status Acute chest pain Unknown Acute Ankle sprain Unknown Acute Anxiety attack Unknown Acute Asthma exacerbation in COPD Unknown Acute Chronic low back pain Unknown Acute Cigarette nicotine dependence with nicotine-induced disorder Unknown Acute Exacerbation of chronic back pain Unknown Acute Fall in elderly patient Unknown Acute Non-cardiac chest pain Unknown Acute Reflux esophagitis Unknown Acute Medications [...] Oral Three Times A Day for Anxiety Guaifenesin 600 Mg 600 Mg Oral Twice A Day as needed for Congestion 11/26/15 Albuterol Sulfate (Proair) 1 Puff 2 Puff [...] Chest Pain 11/26/15 Tramadol Hcl 50 Mg 50 Mg Oral Every Six Hours as needed for Pain 10/11 Albuterol Sulfate (Proventil) 2.5 Mg/3 Ml 2.5 Mg Inhalation Every Four Hours as needed for Wheezing 11/26/15 Cyclobenzaprine Hcl 10 Mg 10 Mg [...] Twice A Day for Seizure 04/17/16 Ipratropium [place] 30 Ml 2 Spr Nasal Twice A [...] A Day as needed for Congestion 04/17/16 Warfarin Sodium 10 Mg 10 Mg Oral Tue&Thurs for Thromboembolic Disease 04/17/16 Warfarin Sodium 7.5 Mg 7.5 Mg Oral Sun,Mon,Wed,Fri,Sat for Thromboembolic Disease 04/17/16 Nystatin 1 Aps 1 Aps Topical Twice A Day as needed for Irritation Lidocaine Hcl 4 % 76.5 Gm Topical Four Times A Day as needed for Pain 04/17/16 Past Home Medications Medication Directions Ordered Status Levothyroxine Sodium 150 Mcg Tablet, 150 Mcg Oral Once A Day for Hypothyroidism 11/26/15 Discontinued Warfarin Sodium 6 Mg Tablet, 6 Mg Oral Every Other Day for Dvt 11/26/15 Discontinued [Mintox Suspension] , 30 Ml As Needed as needed for Indigestion 11/26/15 Discontinued Warfarin Sodium 7.5 Mg Tablet, 7.5 Mg Oral Odd Days for Dvt 11/26/15 Discontinued Prednisone 20 Mg Tablet, 20 Mg Oral Once A Day 11/30/15 Discontinued Social History Social History Problem Response Recorded Date/Time Alcohol Use none 04/17/2016 7:31am Drug Use none 04/17/2016 7:31am Smoking Status Current every day smoker 04/17/2016 7:21am Smoked in the last 12 months? Yes 04/17/2016 7:21am Do you dip or chew tobacco? No 04/17/2016 7:21am Approx how many cigs per day? 20 04/17/2016 7:21am Level of Dependence High 04/17/2016 7:21am Former smoker, last day smoked? today 04/17/2016 7:21am Query Response Start Date Stop Date Smoking Status Current every day smoker Hospital Discharge Instructions No hospital discharge instructions. Plan of Care Discharge Date 04/17/16 8:07am Disposition 01 D/C HOME Condition at Discharge Stable and Improved Instructions/Education Provided How to Stop Smoking (ED) Acute Low Back Pain (ED) Chronic Back Pain (ED) Prescriptions See Medication Section Referrals ELISEO CATHERINE APRN - Additional Instructions/Education Injections given in the ER for your acute pain-this will get you through until you see Eliseo in the office Call today to make an appointment to discuss your chronic pain management with Eliseo You have an exacerbation of your chronic pain currently which will improve over the next few days, but you will need to discuss your chronic pain with pcp You may continue with your current home medications, Rx given for flexeril 10mg to take for the next few days to help release the muscles from spasms f/u with Eliseo prior to the weekend-prefer tomorr or Reference Links Functional Status Query Response Date Recorded Activities of Daily Living Performs with Assistance April 17, 2016 7:21am Cognitive Function Intact April 17, 2016 7:21am Allergies, Adverse Reactions, Alerts Allergen Type Severity Reaction Status Last Updated Iodine and Iodide Containing Produc Allergy Unknown Active 12/06/15 Penicillin Allergy Unknown Active 12/06/15 Cephalosporins Allergy Unknown Active 12/06/15 Sulfa (Sulfonamide Antibiotics) ([id number]) Allergy Unknown Active 08/10 Morphine Allergy Unknown Active 11/26/15 Codeine Allergy Unknown Active 11/26/15 Aspirin Allergy Unknown Active 11/26/15 Tetracycline Allergy Unknown Active 11/26/15 Erythromycin base Allergy Unknown Active 11/26/15 Diphenhydramine Allergy Unknown Active 11/26/15 Ketorolac Allergy Unknown Active 11/26/15 Immunizations No immunization records. Vital Signs Acute Vital Signs Vital Response Date/Time Temperature (Fahrenheit) 97.6 degrees F (97.6 - 99.5) 04/17/2016 8:05am Temperature (Calculated Celsius) 36.58374 degrees C (36.4 - 37.5) 04/17/2016 8:05am Temperature Source Temporal Artery Scan 04/17/2016 8:05am Pulse Pulse Ox Pulse Rate (adult) 58 beats per minute (60 - 90) 04/17/2016 8:05am Pulse Location Modifier Right 04/17/2016 8:05am Oxygen Saturation Respiratory Rate 20 breaths per minute (12 - 24) 04/17/2016 8:05am O2 Sat by Pulse Oximetry 95 % (90 - 100) 04/17/2016 8:05am Blood Pressure 139/75 mm Hg 04/17/2016 8:05am Blood Pressure Mean 96 mm Hg 04/17/2016 8:05am Height 5 ft 5 in Weight 309 [...] Discharge/Depart Date Attending Provider Departed [facility] 04/17/16 7:15am 04/17/16 8: 07am IAN BROOKS [facility]N [facility] 03/06/16 8:34am LONGKARTHIKE A RAW PRODUCTS DIRECTOR [facility] 02/20/16 9:23am LONG, MARDIE A RAW PRODUCTS DIRECTOR [facility] 02/06/16 8:43am LONG, MARDIE A RAW PRODUCTS DIRECTOR [facility] 02/01/16 9:28am ALVARO PATEL MD [facility] 01/30/16 9:56am LONG, MARDIE A RAW PRODUCTS DIRECTOR [facility] 01/24/16 2:29pm LONG, MARDIE A RAW PRODUCTS DIRECTOR [facility] 01/18/16 10:02am LONG, MARDIE A RAW PRODUCTS DIRECTOR [facility] 01/17/16 9:44am LONG, MARDIE A RAW PRODUCTS DIRECTOR [facility] 01/16/16 8:27am LONG, MARDIE A RAW PRODUCTS DIRECTOR [facility] 01/13/16 10:10am LONG, MARDIE A RAW PRODUCTS DIRECTOR [facility] 01/09/16 11:09am LONG, MARDIE A RAW PRODUCTS DIRECTOR [facility] 01/04/16 8:29am LONG, MARDIE A RAW PRODUCTS DIRECTOR [facility] 01/02/16 1:29pm LONG, MARDIE A RAW PRODUCTS DIRECTOR [facility] 12/29/15 3:42pm LONG MARDIE A RAW PRODUCTS DIRECTOR Departed Emergency Room [facility] 12/06/15 5:08am 12/06/15 6: 30am IAN BROOKS APRN Departed Emergency Room [facility] 12/03/15 9:25pm 12/03/15 11: 58pm DERREK HOLLIDAY NP Departed Emergency Room [facility] 11/30/15 9:48pm 11/30/15 11: 55pm NUPUR GUILLORY APRN Departed Emergency Room [facility] 11/27/15 9:00pm 11/27/15 9: 45pm MEME MILLS APRN Departed Emergency Room [facility] 11/25/15 11:58pm 11/26/15 2: 00am MEME MILLS APRN Recent Diagnosis
--- OUTSIDE RECORDS SUMMARY | 2018-07-10 18:43 | XMS REPORT | Continuity of Care Document ---
Author Author [facility] Address [address] [place] [address] Phone Unavailable Care Team Providers Care Physician Assistant Certified Name Role Phone ELISEO CATHERINE APRN PCP Insurance Providers Payer Name Policy Number Subscriber Name Relationship Medicare [id number] Misa Lund 18 Self / Same As Patient [employer] [address] [id number] Misa Lund 18 Self / Same As Patient Advance Directives Directive Response Recorded Date/Time Advance Directives No 11/26/15 12:22am Advance Directive on File No 09/10/16 12:40am Durable POA for HC No 09/10/16 12:40am Power of Production Recovery Operator No 09/10/16 12:40am Organ Donor No 09/10/16 12:40am Living Will No 09/10/16 12:40am Chief Complaint and Reason for Visit Chief [...] Twice A Day for Seizure 04/17/16 Ipratropium [place] 30 Ml 2 Spr Nasal Twice A [...] Problem Response Recorded Date/Time Alcohol Use none 09/10/2016 12:47am Drug Use none 09/10/2016 12:47am Smoking Status Current every day smoker 09/10/2016 12:40am Smoked in the last 12 months? Yes 09/10/2016 12:40am Do you dip or chew tobacco? Yes 09/10/2016 12:40am Approx how many cigs per day? 20 09/10/2016 12:40am Level of Dependence High 09/10/2016 12:40am Former smoker, last day smoked? today 09/10/2016 12:40am Query Response Start Date Stop Date Smoking Status Current every day smoker Hospital Discharge Instructions No hospital discharge instructions. Plan of Care Discharge Date 09/10/16 3:28am Disposition 01 D/C HOME Condition at Discharge Stable Instructions/Education Provided Noncardiac Chest Pain (ED) Forms Provided ER Discharge Phone Call Check Prescriptions See Medication Section Referrals ELISEO CATHERINE APRN - Additional Instructions/Education Stop smoking, continue home medications, reduce stress, follow up with primary care provider, return if worsening symptoms. Reference Links chest pain Functional Status Query Response Date Recorded Activities of Daily Living Performs w/o Assistance September 10, 2016 12:41am Cognitive Function Intact September 10, 2016 12:41am Allergies, Adverse Reactions, Alerts Allergen Type Severity Reaction Status Last Updated Iodine and Iodide Containing Produc Allergy Unknown Active 12/06/15 Penicillin Allergy Unknown Active 12/06/15 Cephalosporins Allergy Unknown Active 12/06/15 Sulfa (Sulfonamide Antibiotics) ([id number]) Allergy Unknown Active 08/10 Morphine Allergy Unknown Active 11/26/15 Codeine Allergy Unknown Active 11/26/15 Aspirin Allergy Unknown Active 11/26/15 Tetracycline Allergy Unknown Active 11/26/15 Erythromycin base Allergy Unknown Active 11/26/15 Diphenhydramine Allergy Unknown Active 11/26/15 Ketorolac Allergy Unknown Active 11/26/15 Immunizations No immunization records. Vital Signs Acute Vital Signs Vital Response Date/Time Temperature (Fahrenheit) 98.3 degrees F (97.6 - 99.5) 09/10/2016 3:10am Temperature (Calculated Celsius) 36.06951 degrees C (36.4 - 37.5) 09/10/2016 3:10am Temperature Source Temporal Artery Scan 09/10/2016 12:25am Pulse Pulse Ox Pulse Rate (adult) 68 beats per minute (60 - 90) 09/10/2016 3:10am Pulse Location Modifier Left 08/05/2016 10:22pm Oxygen Saturation Respiratory Rate 16 breaths per minute (12 - 24) 09/10/2016 3:10am O2 Sat by Pulse Oximetry 92 % (90 - 100) 09/10/2016 3:10am Blood Pressure 157/72 mm Hg 09/10/2016 3:10am Blood Pressure Mean 100 mm Hg 09/10/2016 3:10am Height 5 ft 5 in Weight 320 lb Body Mass Index 53.3 kg/m^2 Results Laboratory Results Test Name Result Units Flags Reference Collection Date/Time Result Date/ Time Comments White Blood Count 12.0 x10^3/uL H 4.0-11.0 11/26/2015 12:am 2015 12:38am Red Blood Count 4.55 10^6/uL 3.80-5.80 11/26/2015 12:11/26/2015 12 :38am Hematocrit 43.0 % 37.0-47.0 11/26/2015 12:11/26/2015 12:38am Mean Corpuscular Volume 95 fl 76-96 11/26/2015 12:11/26/2015 12: 38am Mean Corpuscular Hemoglobin 29.9 pg 27.0-32.0 11/26/2015 12:2015 12:38am Mean Corpuscular Hemoglobin Concent 31.6 g/dl 31.0-35.0 11/26/2015 12: 2111/26/2015 12:38am Red Cell Distribution Width 16.0 % [...] 1:02am Troponin < 0.05 mg/mL 0-0.056 11/26/2015 12:21am 11/26/2015 1:02am Creatine Kinase MB 0.9 ng/mL 0-3.6 11/26/2015 12:21am 11/26/2015 1: 02am Total Protein 7.6 g/dL 6.4-8.4 [...] MG Completed EMERGENCY DEPT VISIT Completed 07/31/16 X-RAY EXAM L-S SPINE 2/3 VWS Completed 08/05/16 X-RAY EXAM OF PELVIS Completed 08/05/16 THER/PROPH/DIAG INJ IA Completed 08/05/16 EMERGENCY DEPT VISIT Completed 08/05/16 INJECTION, MEPERIDINE HYDROCHLORIDE, PER 100 MG Completed INJECTION, ORPHENADRINE CITRATE, UP TO 60 MG Completed THER/PROPH/DIAG INJ IV PUSH Completed 08/05/16 TX/PRO/DX INJ NEW DRUG ADDON Completed 08/05/16 Encounters Encounter Location Arrival/Admit Date Discharge/Depart Date Attending Provider Departed Emergency Room [facility] 09/10/16 12:24am 09/10/16 3: 28am ANDREW SULTANA APRN Departed Emergency Room [facility] 08/05/16 8:05pm 08/05/16 10: 40pm MEME MILLS APRN Departed Emergency Room [facility] 07/31/16 7:09pm 07/31/16 10: 30pm ABDIEL ROMERO MD Departed Emergency Room [facility] 07/19/16 10:07pm 07/20/16 12: 45am BENIGNO PALACIOS MD Departed Emergency Room [facility] 07/16/16 9:22pm 07/16/16 10: 35pm IAN BROOKS APRN Departed Emergency Room [facility] 06/29/16 10:15pm 06/30/16 12: 05am ABDIEL ROMERO MD [facility]istered [facility] 04/25/16 12:21pm ELISEO CATHERINE APRN Departed Emergency Room [facility] 04/18/16 2:25pm 04/18/16 4: 05pm ABDIEL ROMERO MD Departed Emergency Room [facility] 04/17/16 7:15am 04/17/16 8: 07am IAN BROOKS APRN [facility] 03/06/16 8:34am ELISEO CATHERINE APRN [facility] 02/20/16 9:23am ELISEO CATHERINE APRN [facility] 02/06/16 8:43am ELISEO CATHERINE APRN [facility] 02/01/16 9:28am ALVARO PATEL MD [facility] 01/30/16 9:56am ELISEO CATHERINE APRN [facility] 01/24/16 2:29pm ELISEO CATHERINE APRN [facility] 01/18/16 10:02am ELISEO CATHERINE APRN [facility] 01/17/16 9:44am LONG, ELISEO Contreras SORTING MACHINE OPERATOR [facility]istered [facility] 01/16/16 8:27am LONG, ELISEO Contreras APRN [facility] 01/13/16 10:10am LONG, ELISEO Contreras APRN [facility] 01/09/16 11:09am LONG, ELISEO Contreras APRN [facility] 01/04/16 8:29am LONG, ELISEO Contreras APRN [facility] 01/02/16 1:29pm LONGELISEO APRN [facility] 12/29/15 3:42pm ELISEO CATHERINE APRN Departed Emergency Room [facility] 12/06/15 5:08am [...]
--- OUTSIDE RECORDS SUMMARY | 2018-07-10 18:44 | XMS REPORT | Continuity of Care Document ---
Author Author [facility] Organization [facility] Address [address] [place] [address] Phone Unavailable Care Team Providers Care Bailer Operators Supervisor Name Role Phone DORENE ELISEO Contreras APRN PCP Insurance Providers Payer Name Policy Number Subscriber Name Relationship Medicare [id number] Misa Lund 18 Self / Same As Patient [employer] [address] [id number] Misa Lund 18 Self / Same As Patient Advance Directives Directive Response Recorded Date/Time Advance Directives No 11/26/15 12:22am Advance Directive on File No 07/16/16 9:28pm Durable POA for HC No 07/16/16 9:28pm Power of Manager Instrumentation No 07/16/16 9:28pm Organ Donor No 07/16/16 9:28pm Living Will No 07/16/16 9:28pm Problems Active Problems Medical Problem Onset Date Status Acute chest pain Unknown Acute Ankle sprain Unknown Acute Anxiety attack Unknown Acute Asthma exacerbation in COPD Unknown Acute Back muscle spasm Unknown Acute Chronic low back pain Unknown Acute Cigarette nicotine dependence with nicotine-induced disorder Unknown Acute Contusion Unknown Acute Exacerbation of [...] Twice A Day for Seizure 04/17/16 Ipratropium [place] 30 Ml 2 Spr Nasal Twice A [...] Warfarin Sodium 7.5 Mg 15 Mg Oral Sun,Sat,Sat,Fri,Sat for Blood Thinning 07/16/16 Warfarin Sodium 7.5 Mg 7.5 Mg Oral Tue,Sindy for Blood Thinning Nystatin 1 Aps 1 [...] Sodium 7.5 Mg Tablet, 7.5 Mg Oral Sun,Sat,Sat,Sat,Sat for Thromboembolic Disease 04/17/16 Discontinued Nystatin 1 Aps Powder, 1 Aps Topical Twice A Day as needed for Irritation Discontinued Lidocaine Hcl 4 % Cream..g., 76.5 Gm Topical Four Times A Day as needed for Pain 04/17/16 Discontinued [Vancomycin Hcl] , 1 Nebullizer Twice A Day for Mrsa 07/16/16 Discontinued Social History Social History Problem Response Recorded Date/Time Alcohol Use none 07/19/2016 11:41pm Drug Use none 07/19/2016 11:41pm Smoking Status Current every day smoker 07/19/2016 10:13pm Smoked in the last 12 months? Yes 07/19/2016 10:13pm Do you dip or chew tobacco? Yes 07/19/2016 10:13pm Approx how many cigs per day? 20 07/19/2016 10:13pm Level of Dependence Moderate 07/19/2016 10:13pm Former smoker, last day smoked? today 07/19/2016 10:13pm Query Response Start Date Stop Date Smoking Status Current every day smoker Hospital Discharge Instructions No hospital discharge instructions. Plan of Care Discharge Date 07/20/16 12:45am Disposition 01 D/C HOME Condition at Discharge Stable Instructions/Education Provided How to Stop Smoking (ED) Fall Prevention for Older Adults (ED) Forms Provided ER Discharge Phone Call Check Prescriptions See Medication Section Referrals ELISEO CATHERINE APRN - Additional Instructions/Education elavate leg as much as possible. follow up with primary care provider in 1 week. Functional Status Query Response Date Recorded Activities of Daily Living Performs with Assistance July 19, 2016 10:14pm Cognitive Function Intact July 19, 2016 10:14pm Allergies, Adverse Reactions, Alerts Allergen Type Severity Reaction Status Last Updated Iodine and Iodide Containing Produc Allergy Unknown Active 12/06/15 Penicillin Allergy Unknown Active 12/06/15 Cephalosporins Allergy Unknown Active 12/06/15 Sulfa (Sulfonamide Antibiotics) ([id number]) Allergy Unknown Active 08/10 Morphine Allergy Unknown Active 11/26/15 Codeine Allergy Unknown Active 11/26/15 Aspirin Allergy Unknown Active 11/26/15 Tetracycline Allergy Unknown Active 11/26/15 Erythromycin base Allergy Unknown Active 11/26/15 Diphenhydramine Allergy Unknown Active 11/26/15 Ketorolac Allergy Unknown Active 11/26/15 Immunizations No immunization records. Vital Signs Acute Vital Signs Vital Response Date/Time Temperature (Fahrenheit) 98.7 degrees F (97.6 - 99.5) 07/20/2016 12:45am Temperature (Calculated Celsius) 37.98737 degrees C (36.4 - 37.5) 07/20/2016 12:45am Temperature Source Temporal Artery Scan 07/20/2016 12:45am Pulse Pulse Ox Pulse Rate (adult) 80 beats per minute (60 - 90) 07/20/2016 12:45am Pulse Location Modifier Left 07/20/2016 12:45am Oxygen Saturation Respiratory Rate 20 breaths per minute (12 - 24) 07/20/2016 12:45am O2 Sat by Pulse Oximetry 95 % (90 - 100) 07/20/2016 12:45am Blood Pressure 117/74 mm Hg 07/20/2016 12:45am Blood Pressure Mean 88 mm Hg 07/20/2016 12:45am Height 5 ft 3 in Weight 315 lb Body Mass Index 55.8 kg/m^2 Results Laboratory Results Test Name Result [...] Completed 07/16/16 EMERGENCY DEPT VISIT Completed 07/16/16 Encounters Encounter Location Arrival/Admit Date Discharge/Depart Date Attending Provider Departed Emergency Room [facility] 07/19/16 10:07pm 07/20/16 12: 45am BENIGNO PALACIOS MD Departed Emergency Room [facility] 07/16/16 9:22pm 07/16/16 10: 35pm IAN BROOKS APRN Departed Emergency Room [facility] 06/29/16 10:15pm 06/30/16 12: 05am ABDIEL ROMERO MD [facility] 04/25/16 12:21pm LEISEO CATHERINE APRN Departed Emergency Room [facility] 04/18/16 2:25pm 04/18/16 4: 05pm ABDIEL ROMERO MD Departed Emergency Room [facility] 04/17/16 7:15am 04/17/16 8: 07am IAN BROOKS APRN Registered [facility] 03/06/16 8:34am LONG, MARDIE A PERSONALIZATION SPECIALIST Registered [facility] 02/20/16 9:23am LONG, MARDIE A PERSONALIZATION SPECIALIST Registered [facility] 02/06/16 8:43am LONG, MARDIE A PERSONALIZATION SPECIALIST Registered [facility] 02/01/16 9:28am ALVARO PATEL MD [facility]istered [facility] 01/30/16 9:56am LONG, MARDIE A PERSONALIZATION SPECIALIST Registered [facility] 01/24/16 2:29pm LONG, MARDIE A PERSONALIZATION SPECIALIST Registered [facility] 01/18/16 10:02am LONG, MARDIE A PERSONALIZATION SPECIALIST Registered [facility] 01/17/16 9:44am LONG, MARDIE A PERSONALIZATION SPECIALIST Registered [facility] 01/16/16 8:27am LONG, MARDIE A PERSONALIZATION SPECIALIST Registered [facility] 01/13/16 10:10am LONG, MARDIE A PERSONALIZATION SPECIALIST Registered [facility] 01/09/16 11:09am LONG, MARDIE A PERSONALIZATION SPECIALIST Registered [facility] 01/04/16 8:29am LONG, MARDIE A PERSONALIZATION SPECIALIST Registered [facility] 01/02/16 1:29pm LONG, MARDIE A PERSONALIZATION SPECIALIST Registered [facility] 12/29/15 3:42pm LONG, MARDIE A PERSONALIZATION SPECIALIST Departed Emergency Room [facility] 12/06/15 5:08am 12/06/15 6: 30am IAN BROOKS APRN Departed Emergency Room [facility] 12/03/15 9:25pm 12/03/15 11: 58pm DERREK HOLLIDAY NP Departed Emergency Room [facility] 11/30/15 9:48pm 11/30/15 11: 55pm NUPUR GUILLORY APRN Departed Emergency Room [facility] 11/27/15 9:00pm 11/27/15 9: 45pm MEME MILLS APRN Departed Emergency Room [facility] 11/25/15 11:58pm 11/26/15 2: 00MEME Vernon APRN
--- OUTSIDE RECORDS SUMMARY | 2018-07-10 18:44 | XMS REPORT | Continuity of Care Document ---
Author Author [facility] Organization [facility] Address [address] [place] [address] Phone Unavailable Care Team Providers Care Senior Radiation Protection Technician Name Role Phone ELISEO CATHERINE APRN PCP Insurance Providers Payer Name Policy Number Subscriber Name Relationship Medicare [id number] Misa Lund 19 Self / Same As Patient [employer] [place] [id number] Misa Lund Self / Same As Patient Advance Directives Directive Response Recorded Date/Time Advance Directives No 11/26/15 12:22am Advance Directive on File No 07/16/16 9:28pm Durable POA for HC No 07/16/16 9:28pm Power of Outside Maintenance Worker No 07/16/16 9:28pm Organ Donor No 07/16/16 9:28pm Living Will No 07/16/16 9:28pm Chief Complaint and Reason for Visit Chief Complaint Multiple Trauma/Fall Reason for Visit Contusion Fall in elderly patient Problems Active Problems Medical Problem Onset Date [...] Twice A Day for Seizure 04/17/16 Ipratropium [place] 30 Ml 2 Spr Nasal Twice A [...] Warfarin Sodium 7.5 Mg 15 Mg Oral Sun,Mon,Wed,Sat,Sat for Blood Thinning 07/16/16 Warfarin Sodium 7.5 Mg 7.5 Mg Oral Tue,Sindy for Blood Thinning Nystatin 1 Aps 1 Aps Topical Twice A Day for Under Breast Folds [Vancomycin Hcl] 1 Nebullizer Twice A Day for Mrsa 07/16/16 Past Home Medications Medication Directions Ordered Status [...] Problem Response Recorded Date/Time Alcohol Use none 07/16/2016 9:46pm Drug Use none 07/16/2016 9:46pm Smoking Status Current every day smoker 07/16/2016 9:29pm Smoked in the last 12 months? Yes 07/16/2016 9:29pm Do you dip or chew tobacco? Yes 07/16/2016 9:29pm Approx how many cigs per day? 20 07/16/2016 9:29pm Level of Dependence Moderate 07/16/2016 9:46pm Former smoker, last day smoked? today 07/16/2016 9:29pm Query Response Start Date Stop Date Smoking Status Current every day smoker Hospital Discharge Instructions No hospital discharge instructions. Plan of Care Discharge Date 07/16/16 10:35pm Disposition 63 D/C LTC FACILITY Condition at Discharge Stable and Improved Instructions/Education Provided How to Stop Smoking (ED) Fall Prevention for Older Adults (ED) Forms Provided ER Discharge Phone Call Check Prescriptions See Medication Section Referrals ELISOE CATHERINE APRN - Additional Instructions/Education The emergency provider has reviewed your X- ray. Large abnormalities requiring urgent care are generally obvious, and the emergency provider is able to find most of these problems on an X-ray. However, the emergency department provider is not a specialist in radiology. To be careful, we will have the hospital radiologist (X-ray specialist) read your X-ray on the morning of the next working day. If there is an important difference in the X-ray reading, we will try to call you or your doctor. However, we are not always successful in reaching you, so please double-check by calling your doctor s office to find out the final result of your X-ray reading by the radiologist. If you call the hospital X-ray department directly, you will not receive the reading over the phone. It must be given through your doctor s office staff, who can call the X-ray department for you. When you call your doctor or your doctor s office staff, tell him/her that you came to the emergency department where some X-rays were taken, and you were told to call your doctor to double-check the X-ray reading with the hospital s radiologist. The most common things that are missed are tiny fractures (cracks, chips, or hairlines) and small areas of infection (bronchitis, pneumonia, or bone infection). To be sure that these problems are not there, you must contact your physician so that you will receive the proper care for this condition. home to rest tonight continue with all current medications as prescribed call to make a f/u appointment with Blue catherine APRN Functional Status Query Response Date Recorded Activities of Daily Living Performs with Assistance July 16, 2016 9:29pm Cognitive Function Intact July 16, 2016 9:29pm Allergies, Adverse Reactions, Alerts Allergen Type Severity Reaction Status Last Updated Iodine and Iodide Containing Produc Allergy Unknown Active 12/06/15 Penicillin Allergy Unknown Active 12/06/15 Cephalosporins Allergy Unknown Active 12/06/15 Sulfa (Sulfonamide Antibiotics) ([id number]) Allergy Unknown Active 08/10 Morphine Allergy Unknown Active 11/26/15 Codeine Allergy Unknown Active 11/26/15 Aspirin Allergy Unknown Active 11/26/15 Tetracycline Allergy Unknown Active 11/26/15 Erythromycin base Allergy Unknown Active 11/26/15 Diphenhydramine Allergy Unknown Active 11/26/15 Ketorolac Allergy Unknown Active 11/26/15 Immunizations No immunization records. Vital Signs Acute Vital Signs Vital Response Date/Time Temperature (Fahrenheit) 98.2 degrees F (97.6 - 99.5) 07/16/2016 10:31pm Temperature (Calculated Celsius) 36.72374 degrees C (36.4 - 37.5) 07/16/2016 10:31pm Temperature Source Temporal Artery Scan 07/16/2016 10:31pm Pulse Pulse Ox Pulse Rate (adult) 68 beats per minute (60 - 90) 07/16/2016 10:31pm Pulse Location Modifier Left 07/16/2016 10:31pm Oxygen Saturation Respiratory Rate 22 breaths per minute (12 - 24) 07/16/2016 10:31pm O2 Sat by Pulse Oximetry 92 % (90 - 100) 07/16/2016 10:31pm Blood Pressure 118/68 mm Hg 07/16/2016 10:31pm Blood Pressure Mean 85 mm Hg 07/16/2016 10:31pm Height 5 ft 3 in Weight 315 [...] 12:11/26/2015 1:02am Lipase 130 U/L 23-300 11/26/2015 12:21am [...] INJECTION, MEPERIDINE HYDROCHLORIDE, PER 100 MG Completed Encounters Encounter Location Arrival/Admit Date Discharge/Depart Date Attending Provider Departed Emergency Room [facility] 07/16/16 9:22pm 07/16/16 10: 35pm IAN BROOKS APRN Departed Emergency Room [facility] 06/29/16 10:15pm 06/30/16 12: 05am ABDIEL ROMERO MD Registered [facility] 04/25/16 12:21pm ELISEO CATHERINE APRN Departed Emergency Room [facility] 04/18/16 2:25pm 04/18/16 4: 05pm ABDIEL ROMERO MD Departed Emergency Room [facility] 04/17/16 7:15am 04/17/16 8: 07am IAN BROOKS APRN Registered [facility] 03/06/16 8:34am ELISEO CATHERINE APRN Registered [facility] 02/20/16 9:23am ELISEO CATHERINE APRN Registered [facility] 02/06/16 8:43am ELISEO CATHERINE APRN Registered [facility] 02/01/16 9:28am ALVARO PATEL MD Registered [facility] 01/30/16 9:56am ELISEO CATHERINE APRN Registered [facility] 01/24/16 2:29pm ELISEO CATHERINE APRN Registered [facility] 01/18/16 10:02am ELISEO CATHERINE APRN Registered [facility] 01/17/16 9:44am ELISEO CATHERINE APRN Registered [facility] 01/16/16 8:27am ELISEO CATHERINE APRN Registered [facility] 01/13/16 10:10aELISEO Fernandez APRN Registered [facility] 01/09/16 11:09am ELISEO CATHERINE APRN Registered [facility] 01/04/16 8:29am ELISEO CATHERINE APRN Registered [facility] 01/02/16 1:29pm ELISEO CATHERINE APRN Registered [facility] 12/29/15 3:42pm ELISEO CATHERINE APRN Departed Emergency Room [facility] 12/06/15 5:08am 12/06/15 6: 30am IAN BROOKS APRN Departed Emergency Room [facility] 12/03/15 9:25pm 12/03/15 11: 58pm DERREK HOLLIDAY NP Departed Emergency Room [facility] 11/30/15 9:48pm 11/30/15 11: 55pm NUPUR GUILLORY APRN Departed Emergency Room [facility] 11/27/15 9:00pm 11/27/15 9: 45pm MEME MILLS APRN Departed Emergency Room [facility] 11/25/15 11:58pm 11/26/15 2: 00am MEME MILLS APRN Recent Diagnosis
--- OUTSIDE RECORDS SUMMARY | 2018-07-10 18:45 | XMS REPORT | Continuity of Care Document ---
Author Author [facility] Organization [facility] Address [address] [place] [address] Phone Unavailable Care Team Providers Care Social Media Job Titles Name Role Phone ELISEO CATHERINE APRN PCP Insurance Providers Payer Name Policy Number Subscriber Name Relationship Medicare [id number] Misa Lund 18 Self / Same As Patient [employer] [address] [id number] Misa Lund Self / Same As Patient Advance Directives Directive Response Recorded Date/Time Advance Directives No 11/26/15 12:22am Advance Directive on File No 07/31/16 7:11pm Durable POA for HC No 07/31/16 7:11pm Power of Grid Maker No 07/31/16 7:11pm Organ Donor No 07/31/16 7:11pm Living Will No 07/31/16 7:11pm Chief Complaint and Reason for Visit Chief Complaint Multiple Trauma/Fall Reason for Visit Exacerbation of chronic back pain Fall in elderly patient Problems Active Problems [...] Twice A Day for Seizure 04/17/16 Ipratropium [place] 30 Ml 2 Spr Nasal Twice A [...] Date/Time Smoking Status Current every day smoker 07/31/2016 7:19pm Smoked in the last 12 months? Yes 07/31/2016 7:19pm Do you dip or chew tobacco? Yes 07/31/2016 7:19pm Approx how many cigs per day? 20 07/31/2016 7:19pm Level of Dependence High 07/31/2016 7:19pm Former smoker, last day smoked? today 07/31/2016 7:19pm Query Response Start Date Stop Date Smoking Status Current every day smoker Hospital Discharge Instructions No hospital discharge instructions. Plan of Care Discharge Date 07/31/16 10:30pm Disposition 01 D/C HOME Condition at Discharge Stable Instructions/Education Provided Fall Prevention for Older Adults (ED) Forms Provided ER Discharge Phone Call Check Prescriptions See Medication Section Referrals ELISEO CATHERINE APRN - Additional Instructions/Education Rest, apply a cold pack to the painful areas. You will be more stiff in the morning. Reference Links Reference Text Am I at risk of falling? Your risk of falling increases as you grow older. That's because getting older can make it harder to walk steadily and keep your balance. Also, the effects of falls are more serious in older people. Overall, 3 to 4 out of every 10 people over the age of 65 fall each year. Up to 75 percent of people who fracture a hip never recover to the point they were before they had their fracture. If you have fallen in the past, you are at higher risk of falling again. Several things can increase your risk of a fall, including: ?Illness ?A change in the medicines you take ?An unsafe or unfamiliar setting (for example, a room with rugs or furniture that might trip you, or an area you don't know well) How can my doctor help me to avoid falling? Your doctor can talk to you about the following things: ?Past falls It is important to tell your doctor about any times you have fallen or almost fallen. He or she can then suggest ways to prevent another fall. ?Your health conditions Some health problems can put you at risk of falling. These include conditions that affect eyesight, hearing, muscle strength, or balance. ?The medicines you take Certain medicines can increase the risk of falling. These include some medicines that are used for sleeping problems, anxiety, or depression. Adding new medicines, or changing doses of some medicines, can also affect your risk of falling. The more your doctor knows about your situation, the better he or she will be able to help you. For example, if you fell because you have a condition that causes pain, your doctor might suggest treatments to deal with the pain. Or if one of your medicines is making you dizzy and more likely to fall, your doctor might switch you to a different medicine. Is there anything I can do on my own? Yes. To help keep from falling, you can: ?Make your home safer To avoid falling at home, get rid of things that might make you trip or slip. This might include furniture, electrical cords, clutter, and loose rugs (figure 1). Keep your home well lit so that you can easily see where you are going. Avoid storing things in high places so you don't have to reach or climb. ?Wear sturdy shoes that fit well Wearing shoes with high heels or slippery soles, or shoes that are too loose, can lead to falls. Walking around in bare feet, or only socks, can also increase your risk of falling. ?Take vitamin D pills Taking vitamin D might lower the risk of falls in older people. This is because vitamin D helps make bones and muscles stronger. Your doctor can help you decide how much vitamin D to take. ?Stay active Exercising on a regular basis can help lower your risk of falling. It might also help prevent you from getting hurt if you do fall. It is best to do a few different activities that help with both strength and balance. There are many kinds of exercise that can be safe for older people. These include walking, swimming, and Leonel Chi (a Persian martial art that involves slow, gentle movements). ?Use a cane, walker, and other safety devices If your doctor recommends that you use a cane or walker, be sure that it's the right size and you know how to use it. There are other devices that might help you avoid falling, too. These include grab bars or a sturdy seat for the shower, non-slip bath mats, and hand rails or treads for the stairs (to prevent slipping). If you worry that you could fall, there are also alarm buttons that let you call for help if you fall and can't get up. What should I do if I fall? If you fall, see your doctor right away, even if you aren't hurt. Your doctor can try to figure out what caused you to fall, and how likely you are to fall again. He or she will do an exam and talk to you about your health problems, medicines, and activities. Then he or she can suggest things you can do to avoid falling again. Many older people have a hard time recovering after a fall. Doing things to prevent falling can help you to protect your health and independence. More on this topic Functional Status Query Response Date Recorded Activities of Daily Living Performs with Assistance July 31, 2016 7:19pm Cognitive Function Moderately Impaired July 31, 2016 7:19pm Allergies, Adverse Reactions, Alerts Allergen Type Severity Reaction Status Last Updated Iodine and Iodide Containing Produc Allergy Unknown Active 12/06/15 Penicillin Allergy Unknown Active 12/06/15 Cephalosporins Allergy Unknown Active 12/06/15 Sulfa (Sulfonamide Antibiotics) ([id number]) Allergy Unknown Active 08/10 Morphine Allergy Unknown Active 11/26/15 Codeine Allergy Unknown Active 11/26/15 Aspirin Allergy Unknown Active 11/26/15 Tetracycline Allergy Unknown Active 11/26/15 Erythromycin base Allergy Unknown Active 11/26/15 Diphenhydramine Allergy Unknown Active 11/26/15 Ketorolac Allergy Unknown Active 11/26/15 Immunizations No immunization records. Vital Signs Acute Vital Signs Vital Response Date/Time Temperature (Fahrenheit) 98 degrees F (97.6 - 99.5) 07/31/2016 7:15pm Temperature (Calculated Celsius) 36.6696 degrees C (36.4 - 37.5) 07/31/2016 7 :15pm Temperature Source Temporal Artery Scan 07/31/2016 7:15pm Pulse Pulse Ox Pulse Rate (adult) 71 beats per minute (60 - 90) 07/31/2016 7:15pm Pulse Location Modifier Left 07/20/2016 12:45am Oxygen Saturation Respiratory Rate 20 breaths per minute (12 - 24) 07/31/2016 7:15pm O2 Sat by Pulse Oximetry 95 % (90 - 100) 07/31/2016 7:15pm Blood Pressure 134/68 mm Hg 07/31/2016 7:15pm Blood Pressure Mean 90 mm Hg 07/31/2016 7:15pm Height 5 ft 7 in Weight 315 lb Body Mass Index 49.3 kg/m^2 Results Laboratory Results Test Name Result [...] 12:11/26/2015 1:02am Globulin 4.8 H 2.3-3.5 11/26/2015 12:21am [...] Completed 07/16/16 EMERGENCY DEPT VISIT Completed 07/19/16 Encounters Encounter Location Arrival/Admit Date Discharge/Depart Date Attending Provider Departed Emergency Room [facility] 07/31/16 7:09pm 07/31/16 10: 30pm ABDIEL ROMERO MD Departed Emergency Room [facility] 07/19/16 10:07pm 07/20/16 12: 45am BENIGNO PALACIOS MD Departed Emergency Room [facility] 07/16/16 9:22pm 07/16/16 10: 35pm IAN BROOKS APRN Departed Emergency Room [facility] 06/29/16 10:15pm 06/30/16 12: 05am ABDIEL ROMERO MD Registered [facility] 04/25/16 12:21pm ELISEO CATHERINE APRN Departed Emergency Room [facility] 04/18/16 2:25pm 04/18/16 4: 05pm ABDIEL ROMERO MD Departed Emergency Room [facility] 04/17/16 7:15am 04/17/16 8: 07am IAN BROOKS APRN Registered [facility] 03/06/16 8:34am ELISEO CATHERINE APRN Registered [facility] 02/20/16 9:23am LONG, KARTHIKE A CARRIER PACKER Registered [facility] 02/06/16 8:43am LONG, MARDIE A CARRIER PACKER Registered [facility] 02/01/16 9:28am ALVARO PATEL MD Registered [facility] 01/30/16 9:56am LONG, MARDIE A CARRIER PACKER Registered [facility] 01/24/16 2:29pm LONG, MARDIE A CARRIER PACKER Registered [facility] 01/18/16 10:02am LONG, MARDIE A CARRIER PACKER Registered [facility] 01/17/16 9:44am LONG, MARDIE A CARRIER PACKER Registered [facility] 01/16/16 8:27am LONG, MARDIE A CARRIER PACKER Registered [facility] 01/13/16 10:10am LONG, MARDIE A CARRIER PACKER Registered [facility] 01/09/16 11:09am LONG, MARDIE A CARRIER PACKER Registered [facility] 01/04/16 8:29am LONG, MARDIE A CARRIER PACKER Registered [facility] 01/02/16 1:29pm LONG, MARDIE A CARRIER PACKER Registered [facility] 12/29/15 3:42pm LONG, CORNELIADIE A CARRIER PACKER Departed Emergency Room [facility] 12/06/15 5:08am 12/06/15 6: 30am IAN BROOKS APRN Departed Emergency Room [facility] 12/03/15 9:25pm 12/03/15 11: 58pm DERREK HOLLIDAY NP Departed Emergency Room [facility] 11/30/15 9:48pm 11/30/15 11: 55pm NUPUR GUILLORY APRN Departed Emergency Room [facility] 11/27/15 9:00pm 11/27/15 9: 45pm MEME MILLS APRN Departed Emergency Room [facility] 11/25/15 11:58pm 11/26/15 2: 00am MEME MILLS APRN Recent Diagnosis
--- OUTSIDE RECORDS SUMMARY | 2018-07-10 18:46 | XMS REPORT | Continuity of Care Document ---
Author Author [facility] Organization [facility] Address [facility] [address] [place] [phone] Phone Unavailable Support Name Relationship Address Phone ESTEPHANIE MACHADO MD Caregiver [address] [place] [phone] EDEL KYLE MD Caregiver [address] [place] [phone] Unavailable HAILY EM DO Caregiver [address] [place] [address] [phone] SHMUEL FRANCOIS Next Of Kin [address] [place] [address] Insurance Providers Payer Name Policy Number Subscriber Name Relationship Medicare [id number] Misa Lund 18 Self / Same As Patient [facility] [id number] Misa Lund 18 Self / Same As Patient Advance Directives Directive Response Recorded Date/Time Do you have an Advanced Directive? No 07/10/15 10:01pm Advance Directives No 11/16/16 3:46pm Living Will No 11/16/16 3:46pm Health Care Proxy No 02/06/17 12:28am Power of Activity Leader for Health Care No 11/16/16 3:46pm Organ, Tissue, or Eye Donor No 09/22/16 10:40pm Do you have a signed organ donor card? No 12/08/15 9:31pm Chief Complaint and Reason for Visit Chief Complaint SLEEP APNEA Reason for Visit [id number] Problems Active Problems Medical Problem Onset Date Status Acute exacerbation of chronic obstructive pulmonary disease (COPD) Unknown Acute Bipolar 1 disorder Unknown Acute Chest pain Unknown Acute Chest wall pain Unknown Acute Fall Unknown Acute Knee pain, right Unknown Acute Lumbar strain Unknown Acute Medications Current Home Medications Medication Dose Units Route Directions Days/Qty Instructions Start Date Aripiprazole 10 Mg 10 Mg Oral Bedtime 30 06/25/15 Duloxetine Hcl 30 Mg 30 Mg Oral Bedtime 30 06/25/15 Duloxetine Hcl 60 Mg 60 Mg Oral Daily Am 30 07/23/15 Carbamazepine 200 Mg 200 Mg Oral Twice A Day 60 07/23/15 Acidophilus/Pectin, [place] 1 Each 1 Tab Oral Daily 07/23/15 Acetaminophen 500 Mg 1,000 Mg Oral Every 4 Hours As Needed 05/02/16 Amlodipine Besylate 5 Mg 5 Mg Oral Bedtime 30 09/22/16 Spironolactone 25 Mg 25 Mg Oral Every Three Days 09/22/16 Levothyroxine Sodium 200 Mcg 200 Mcg Oral Before Breakfast 30 09/22/16 Isosorbide Mononitrate 30 Mg 60 Mg Oral Bedtime 11/16/16 [Atrovent Estefania 0.0.6%] 2 [place] Nasal Twice A Day 11/16/16 Buspirone Hcl 10 Mg 15 Mg Oral Three Times A Day 11/20/16 Carvedilol 6.25 Mg 6.25 Mg Oral Twice A Day 60 11/20/16 Gabapentin 300 Mg 600 Mg Oral Three Times A Day 90 11/20/16 Omeprazole Magnesium 20 Mg 20 Mg Oral Twice A Day 01/04/17 Topiramate 100 Mg 100 Mg Oral Twice A Day 30 01/04/17 Naphazoline Hcl/Pheniramine 15 Ml 2 Drop Each Eye Four Times Daily as needed for Allergy Symptoms 01/04/17 Hydroxyzine Hcl 50 Mg 50 Mg Oral Daily as needed for Itching 60 Loperamide Hcl 1 Mg/5 Ml 1 Mg Oral Every 6 To 8 Hours As Needed as needed for Diarrhea 01/04/17 Magnesium Hydroxide 400 Mg/5 Ml 30 Ml Oral Daily as needed for Constipation 01/04/17 Albuterol Sulfate 90 Mcg 2 Puff Inhalation Every 6 Hours As Needed as needed for Wheezing 01/04/17 Promethazine Hcl 25 Mg 25 Mg Topically Every 4-6 Hours as needed for Nausea /Vomiting 01/04/17 Guaifenesin/Dextromethorphan (Tussin Dm Max Liquid*) 118 Ml 5-10 Ml Oral Every 4 Hours as needed for Cough 01/04/17 Warfarin Sodium 7.5 Mg 7.5 Mg Oral Twice A Week 30 01/04/17 Warfarin Sodium 7.5 Mg 15 Mg Oral Daily 30 01/04/17 Trazodone Hcl 100 Mg 25 Mg Oral Daily 01/04/17 Vancomycin Hcl 100 Gm 200 Mg Inhalation Twice A Day 01/04/17 Lorazepam 0.5 Mg 0.5 Mg Oral Twice A Day as needed for Anxiety 60 08/11 Acetaminophen/Hydrocodone Bitart (Lortab 7.5-325 Tab*) 1 Tab 1 Each Oral Every 4 Hrs As Needed Pain as needed for Pain 15 01/04/17 Nitroglycerin 0.3 Mg 1 Tab Sublingual Once as needed for Chest Pain 01/04/17 Tramadol Hcl 50 Mg 50 Mg Oral Every 4-6 Hours as needed for Pain 15 Albuterol Sulfate 2.5 Mg/3 Ml 2.5 Mg Inhalation Every 4-6 Hours As Needed 30 As needed for Wheezing/Asthma 01/04/17 Prednisone 20 Mg 40 Mg Oral Daily 10 01/04/17 Prednisone 20 Mg 60 Mg Oral Daily 15 02/05/17 Albuterol (Ventolin 17GM Hfa Inhaler*) 1 Puff 2 Puff Inhalation Every 4-6 Hours As Needed for Shortness Of Breath 1 INHALE 2 PUFFS 02/05/17 Past Home Medications Medication Directions Ordered Status Levofloxacin 750 Mg Tablet, 750 Mg Oral Daily 06/21/15 Discontinued Albuterol Sulfate 2.5 Mg/3 Ml Nebu, 2.5 Mg Inhalation Every 4-6 Hours As Needed as needed for Shortness Of Breath 06/21/15 Discontinued Prednisone 10 Mg Tablet, 50 Mg Oral Daily 06/21/15 Discontinued Warfarin Sodium 6 Mg Tablet, 12 Mg Oral Every Other Day 06/25/15 Discontinued Warfarin Sodium 7.5 Mg Tablet, 7.5 Mg Oral Every Other Day 06/25/15 Discontinued Trazodone Hcl 150 Mg Tablet, 150 Mg Oral Bedtime 06/25/15 Discontinued Tramadol Hcl 50 Mg Tablet, 50 Mg Oral Every 6 Hours as needed for Pain Discontinued Lorazepam 0.5 Mg Tablet, 0.5 Mg Oral As Needed for Anxiety 06/25/15 Discontinued Nitroglycerin 0.4 Mg Tab.subl, 0.4 Mg Sublingual As Needed for Chest Pain Discontinued Omeprazole 20 Mg Capsule.dr, 20 Mg Oral Twice A Day 06/25/15 Discontinued Potassium Chloride 10 Meq Tab, 10 Meq Oral Daily 06/25/15 Discontinued Prazosin Hcl 2 Mg Capsule, 1 Mg Oral Bedtime 06/25/15 Discontinued Levothyroxine Sodium 150 Mcg Tablet, 150 Mcg Oral Daily 06/25/15 Discontinued Topiramate 100 Mg Tablet, 100 Mg Oral Twice A Day 06/25/15 Discontinued Acetaminophen/Hydrocodone Bitart (Lortab 7.5-325 Tab*) 1 Tab Tablet, 1 Each Oral Every 4 Hrs As Needed Pain for Pain 06/25/15 Discontinued Buspirone Hcl 10 Mg Tab, 15 Mg Oral Three Times A Day 06/25/15 Discontinued Carbamazepine 100 Mg Cpmp.12hr, 200 Mg Oral Twice A Day 06/25/15 Discontinued Carvedilol 6.25 Mg Tablet, 6.25 Mg Oral Twice A Day 06/25/15 Discontinued Gabapentin 300 Mg Capsule, 300 Mg Oral Three Times A Day 06/25/15 Discontinued Warfarin Sodium 6 Mg Tablet, 6 Mg Oral Even Days 07/23/15 Discontinued Warfarin Sodium 7.5 Mg Tablet, 7.5 Mg Oral Odd Days 07/23/15 Discontinued Levothyroxine Sodium 150 Mcg Tablet, 150 Mcg Oral Daily 07/23/15 Discontinued Trazodone Hcl 150 Mg Tablet, 150 Mg Oral Bedtime 07/23/15 Discontinued Potassium Chloride 10 Meq Tab, 10 Meq Oral Daily 07/23/15 Discontinued Duloxetine Hcl 30 Mg Capsule.dr, 30 Mg Oral 1700 07/23/15 Discontinued Topiramate 100 Mg Tablet, 100 Mg Oral Twice A Day 07/23/15 Discontinued Omeprazole 20 Mg Capsule.dr, 20 Mg Oral Twice A Day 07/23/15 Discontinued Carvedilol 6.25 Mg Tablet, 6.25 Mg Oral Twice A Day 07/23/15 Discontinued Gabapentin 300 Mg Capsule, 300 Mg Oral Three Times A Day 07/23/15 Discontinued Buspirone Hcl 10 Mg Tab, 15 Mg Oral Three Times A Day 07/23/15 Discontinued Biotin 2,500 Mcg Capsule, 5000 Mcg Oral Twice A Day 07/23/15 Discontinued Tramadol Hcl 50 Mg Tablet, 50 Mg Oral Every 8 Hours As Needed Pain 07/23/15 Discontinued Lorazepam 0.5 Mg Tablet, 0.5 Mg Oral Every 6 Hours As Needed 07/23/15 Discontinued Albuterol Sulfate (Proair Hfa) 8.5 Gm Hfa.aer.ad, 1 Puff Inhalation Four Times Daily As Needed 07/23/15 Discontinued Nitroglycerin 0.4 Mg Tab.subl, 0.4 Mg Sublingual As Needed 07/23/15 Discontinued Aripiprazole 10 Mg Tablet, 10 Mg Oral Daily 07/23/15 Discontinued Fentanyl 1 Ea Tdsy, 1 Ea Transderm Every Three Days 07/23/15 Discontinued Meloxicam 7.5 Mg Tablet, 7.5 Mg Oral Twice A Day 07/23/15 Discontinued Cyclobenzaprine Hcl (Flexeril*) 10 Mg Tablet, 10 Mg Oral Three Times A Day Discontinued Calcium Carbonate 500 ( Tab.chew, 500 Mg Oral Three Times Daily With Meals Discontinued Loperamide Hcl 2 Mg Capsule, 2 Mg Oral 05/02/16 Discontinued Cetirizine Hcl 10 Mg Tab.rapdis, 10 Mg Oral 05/02/16 Discontinued Cyclobenzaprine Hcl (Flexeril*) 10 Mg Tablet, 10 Mg Oral Twice A Day Discontinued Potassium Chloride 10 Meq Tab.prt.sr, 10 Meq Oral Daily 09/22/16 Discontinued Spironolactone 25 Mg Tablet, 25 Mg Oral Every Other Day 09/22/16 Discontinued Ipratropium [place] 0.5 Mg/2.5 Ml Nebu, 0.5-2.5 Mg Inhalation Twice A Day Discontinued Topiramate 100 Mg Tablet, 100 Mg Oral Twice A Day 09/22/16 Discontinued Sucralfate 1 G Tablet, 1 Gm Oral Four Times Daily 09/22/16 Discontinued Phenol/Glycerin 30 Ml [place], 5 [place] Nasal As Needed 09/22/16 Discontinued Hydroxyzine Hcl 50 Mg Tablet, 50 Mg Oral As Needed 09/22/16 Discontinued Magnesium Hydroxide 400 Mg/5 Ml Oral.susp, 30 Ml Oral As Needed 09/22/16 Discontinued Al Hydrox/Mg Hydrox/Simethicone 148 Ml Oral.susp, 30 Ml Oral As Needed as needed for Indigestion 09/22/16 Discontinued Guaifenesin/Dextromethorphan (Tussin Dm Max Liquid*) 118 Ml Liquid, 5-10 Ml Oral Every 4 Hours 09/22/16 Discontinued Warfarin Sodium 7.5 Mg Tablet, 7.5 Mg Oral Bedtime 09/22/16 Discontinued Warfarin Sodium 7.5 Mg Tablet, 15 Mg Oral Daily 09/22/16 Discontinued Mupirocin 22 Gm Oint, 22 Gm External Daily 09/22/16 Discontinued Albuterol (Ventolin 17GM Hfa Inhaler*) 1 Puff Inh, 2 Puff Inhalation Every 6 Hours As Needed as needed for Wheezing 09/24/16 Discontinued Salmeterol Xinafoate/Fluticasone 1 Each Disk.w.dev, 1 Puff Inhalation Twice A Day 09/26/16 Discontinued Prednisone 50 Mg Tablet, 50 Mg Oral Daily 10/07/16 Discontinued Acetaminophen/Hydrocodone Bitart (Lortab 7.5-325 Tab*) 1 Tab Tablet, 1 Each Oral Every 6 Hrs As Needed For Pain as needed for Pain 10/22/16 Discontinued [Trazodone Hcl] , 25 Mg Oral Daily 11/16/16 Discontinued Lorazepam 0.5 Mg Tablet, 0.5 Mg Oral Two Times Daily As Needed 11/16/16 Discontinued [Nystatin Powder] , Unknown Dose Topical Twice A Day 11/16/16 Discontinued [Nystatin Powder] , Unknown Dose Topical As Needed 11/16/16 Discontinued Albuterol Sulfate 2.5 Mg/0.5 Ml Vial.neb., 2.5 Mg Inhalation Every 6 Hours As Needed 11/16/16 Discontinued [Lidocaine Oint 5%] , 1 Topically Four Times Daily Prn Pain 11/16/16 Discontinued [Robitussin Dm ] , 10 Ml Oral Every 4 Hours As Needed 11/16/16 Discontinued Omeprazole/Sodium Bicarbonate 1 Each Packet, 11/20/16 Discontinued Social History Social History Problem Response Recorded Date/Time Smoking Status Current every day smoker 11/20/2016 7:33am Tobacco Use Cigarettes 05/02/2016 3:40pm Alcohol Use none 02/05/2017 11:24pm Drug Use none 02/05/2017 11:24pm Query Response Start Date Stop Date Smoking Status Current every day smoker Hospital Discharge Instructions No hospital discharge instructions. Plan of Care Discharge Date 02/05/17 11:50pm Condition at Discharge Stable Instructions/Education Provided COPD Exacerbation, System Administration Manager (GEN) Prescriptions See Medication Section Referrals ESTEPHANIE MACHADO MD - Functional Status Query Response Date Recorded Patient Behavior Cooperative February 05, 2017 11:00pm Allergies, Adverse Reactions, Alerts Allergen Type Severity Reaction Status Last Updated IODINE Allergy Unknown Active 02/05/17 Penicillin Allergy Unknown Active 02/05/17 Cephalosporins Allergy Unknown Active 02/05/17 Tetracyclines Allergy Unknown Active 02/05/17 SULFA (SULFONAMIDE ANTIBIOTICS) Allergy Unknown Active 02/05/17 Morphine Allergy Unknown Active 02/05/17 Codeine Allergy Unknown Active 02/05/17 Propoxyphene Allergy Unknown Active 02/05/17 Aspirin Allergy Unknown Active 02/05/17 Erythromycin base Allergy Unknown Active 02/05/17 Diphenhydramine Allergy Unknown Active 02/05/17 Ketorolac Allergy Unknown Active 02/05/17 Banana Allergy Unknown Active 02/05/17 Fish Allergy Unknown Active 02/05/17 Mushrooms Allergy Unknown Active 02/05/17 Immunizations Name Given Type Hx Diphtheria, Pertussis, Tetanus Vaccination Unknown Historical Hx Influenza Vaccination No Historical Hx Pneumococcal Vaccination No Historical Hx Tetanus, Diphtheria Vaccination Yes Historical Hx Tetanus Toxoid Vaccination Yes Historical Vital Signs Acute Vital Signs Vital Response Date/Time Temperature (Fahrenheit) 97.8 degrees F (97.6 - 99.5) 02/05/2017 11:50pm Temperature Source Temporal Artery 02/05/2017 11:50pm Pulse Rate (adult) 74 bpm (60 - 90) 02/05/2017 11:50pm Respiratory Rate 20 bpm (12 - 24) 02/05/2017 11:50pm Blood Pressure 154/83 mm Hg 02/05/2017 11:50pm O2 Sat by Pulse Oximetry 93 % (90 - 100) 02/05/2017 11:50pm Oxygen Delivery Method 02/05/2017 11:50pm Oxygen Flow Rate 2.0 L/min 02/05/2017 11:13pm Pain Intensity 0 02/05/2017 11:13pm Height 5 ft 3 in Weight 299 lb Body Mass Index 53.0 kg/m^2 Results Pending Laboratory Results Test Name Collection Date/Time Pending Microbiology Results Procedure Source Collection Date/Time Procedures Procedure Status Date Provider(s) EGD DIAGNOSTIC BRUSH WASH Completed 11/20/16 ARNOLDO GARCIA MD INJ, PROPOFOL, 10 MG Completed 11/20/16 RINGERS LACTATE INFUSION Completed 11/20/16 CULTURE OTHR SPECIMN AEROBIC Completed 12/07/16 CULTURE AEROBIC IDENTIFY Completed 12/07/16 MICROBE SUSCEPTIBLE GERARDO Completed 12/07/16 CHEST X-RAY 1 VIEW FRONTAL Completed 01/04/17 COMPREHEN METABOLIC PANEL Completed 01/04/17 ASSAY OF CPK IN BLOOD Completed 01/04/17 ASSAY OF MYOGLOBIN Completed 01/04/17 ASSAY OF TROPONIN QUANT Completed 01/04/17 COMPLETE CBC AUTOMATED Completed 01/04/17 PROTHROMBIN TIME Completed 01/04/17 ELECTROCARDIOGRAM TRACING Completed 01/04/17 THERPROPHDIAG INJ IV PUSH Completed 01/04/17 EMERGENCY DEPT VISIT Completed 01/04/17 NORMAL SALINE SOLUTION INFUS Completed 01/04/17 ALBUTEROL IPRATROP NON-COMP Completed 01/04/17 Portable x-ray of chest Completed 01/04/17 SHERIF SANCHEZ M.D. Encounters Encounter Location Arrival/Admit Date Discharge/Depart Date Attending Provider Departed Emergency Room [place] 02/05/17 11:00pm 02/05/17 11:50pm HAILY EM DO Departed Emergency Room [place] 01/04/17 9:20pm 01/05/17 12:15am SHERIF SANCHEZ M.D. Registered Referred [place] 12/07/16 4:15pm JAY JAY WREN APRN Registered [facility] [place] 11/20/16 5:35am ARNOLDO GARCIA MD Recent Diagnosis
--- OUTSIDE RECORDS SUMMARY | 2018-07-10 18:47 | XMS REPORT | Continuity of Care Document ---
Author Author [facility] Organization [facility] Address [facility] [address] [place] [address] Phone Unavailable Support Name Relationship Address Phone ESTEPHANIE MACHADO MD Caregiver [address] [place] [place] [phone] ORION BOSE MD Caregiver [address] [place] [place] [address] Unavailable SHMUEL FRANCOIS Next Of Kin [address] [place] [address] Insurance Providers Payer Name Policy Number Subscriber Name Relationship Medicare [id number] Misa Lund 18 Self / Same As Patient [facility] [id number] Misa Lund 18 Self / Same As Patient Advance Directives Directive Response Recorded Date/Time Do you have an Advanced Directive? No 07/10/15 10:01pm Advance Directives No 11/16/16 3:46pm Living Will No 11/16/16 3:46pm Health Care Proxy No 02/07/17 11:27pm Power of Ethical Hacker for Health Care No 11/16/16 3:46pm Organ, Tissue, or Eye Donor No 09/22/16 10:40pm Do you have a signed organ donor card? No 12/08/15 9:31pm Chief Complaint and Reason for Visit Chief Complaint CHEST PAIN Reason for Visit Dyspnea Chest pain Problems Active Problems Medical Problem Onset Date Status Acute exacerbation of chronic obstructive pulmonary disease (COPD) Unknown Acute Bipolar 1 disorder Unknown Acute Chest pain Unknown Acute Chest wall pain Unknown Acute Dyspnea Unknown Acute Fall Unknown Acute Knee pain, [...] Oral Twice A Day 60 07/23/15 Acidophilus/Pectin, [place] 1 Each 1 Tab Oral Daily 07/23/15 Acetaminophen 500 Mg 1,000 Mg Oral Every 4 Hours As Needed 05/02/16 Amlodipine Besylate 5 Mg 5 Mg Oral Bedtime 30 09/22/16 Spironolactone 25 Mg 25 Mg Oral Every Three Days 09/22/16 Levothyroxine Sodium 200 Mcg 200 Mcg Oral Before Breakfast 30 09/22/16 Isosorbide Mononitrate 30 Mg 60 Mg Oral Bedtime 11/16/16 [Atrovent Estefania 0.0.6%] 2 [place] Nasal Twice A Day 11/16/16 Buspirone Hcl [...] Every 4-6 Hours as needed for Pain Albuterol Sulfate 2.5 Mg/3 Ml 2.5 Mg Inhalation Every 4-6 Hours As Needed 30 As needed for Wheezing/Asthma 01/04/17 Prednisone 20 Mg 40 Mg Oral Daily 01/04/17 Prednisone 20 Mg 60 Mg Oral Daily 02/05/17 Albuterol (Ventolin 17GM Hfa Inhaler*) 1 [...] Oral Every Other Day 09/22/16 Discontinued Ipratropium [place] 0.5 Mg/2.5 Ml Nebu, 0.5-2.5 Mg Inhalation Twice A Day Discontinued Topiramate 100 Mg Tablet, 100 Mg Oral Twice A Day 09/22/16 Discontinued Sucralfate 1 G Tablet, 1 Gm Oral Four Times Daily 09/22/16 Discontinued Phenol/Glycerin 30 Ml [place], 5 [place] Nasal As Needed 09/22/16 Discontinued Hydroxyzine Hcl [...] 11/20/2016 7:33am Tobacco Use Cigarettes 05/02/2016 3:40pm Query Response Start Date Stop Date Smoking Status Current every day smoker Hospital Discharge Instructions No hospital discharge instructions. Plan of Care Discharge Date 02/08/17 1:15am Condition at Discharge Stable Instructions/Education Provided Chest Pain (ED) Prescriptions See Medication Section Referrals ESTEPHANIE MACHADO MD - Additional Instructions/Education One of your blood pressure here today in the emergency department was noted to be high. Blood pressure is expressed as systolic pressure over diastolic blood pressure, or SBP/DPB. Normal blood pressure is considered 120/80 mm Hg; anything greater than either of these numbers is considered a high blood pressure. You need to follow up with your primary care doctor regarding this finding at your next visit. Functional Status Query Response Date Recorded Aris Coma Scale Total 15 February 07, 2017 11:42pm Patient Behavior Cooperative Appropriate February 07, 2017 11:25pm Allergies, Adverse Reactions, Alerts Allergen Type Severity [...] Vital Signs Vital Response Date/Time Temperature (Fahrenheit) 97.2 degrees F (97.6 - 99.5) 02/07/2017 11:25pm Temperature Source Temporal Artery 02/07/2017 11:25pm Pulse Rate (adult) 65 bpm (60 - 90) 02/08/2017 1:01am Respiratory Rate 20 bpm (12 - 24) 02/08/2017 1:01am Blood Pressure 119/63 mm Hg 02/08/2017 1:01am O2 Sat by Pulse Oximetry 93 % (90 - 100) 02/08/2017 1:01am Oxygen Delivery Method 02/08/2017 1:01am Oxygen Flow Rate 2.0 L/min 02/05/2017 11:13pm Pain Intensity 8 02/07/2017 11:58pm Pain Location Body Site Modifier 02/07/2017 11:42pm Pain Description 02/07/2017 11:42pm Pain Duration 15-30 Minutes 02/07/2017 11:42pm Height 5 ft 3 in Weight 330 lb Body Mass Index 58.0 kg/m^2 Results Pending Laboratory Results Test Name [...] Completed 01/04/17 ALBUTEROL IPRATROP NON-COMP Completed 01/04/17 AIRWAY INHALATION TREATMENT Completed 02/05/17 EMERGENCY DEPT VISIT Completed 02/05/17 GROUND MILEAGE Completed 02/05/17 BLS-EMERGENCY Completed 02/05/17 Completed 02/05/17 ALBUTEROL IPRATROP NON-COMP Completed 02/05/17 Portable x-ray of chest Completed 01/04/17 SHERIF SANCHEZ M.D. Portable x-ray of chest Completed 02/07/17 ORION BOSE MD Encounters Encounter Location Arrival/Admit Date Discharge/Depart Date Attending Provider Departed Emergency Room [place] 02/07/17 11:23pm 02/08/17 1:15am ORION BOSE MD Departed Emergency Room [place] 02/05/17 11:00pm 02/05/17 11:50pm HAILY EM DO Departed Emergency Room [place] 01/04/17 9:20pm 01/05/17 12:15am SHERIF SANCHEZ M.D. Registered Referred [place] 12/07/16 4:15pm JAY JAY WREN APRN Registered [facility] 11/20/16 5:35am ARNOLDO GARCIA MD Recent Diagnosis
--- OUTSIDE RECORDS SUMMARY | 2018-07-10 18:47 | XMS REPORT | Continuity of Care Document ---
Author Author [facility] Organization [facility] Address [facility] [address] [place] [id number] Phone Unavailable Support Name Relationship Address Phone ESTEPHANIE MACHADO MD Caregiver [address] [place] [id number] JOAQUIN ROGERS MD Caregiver [address] [place] [id number] Unavailable SHMUEL FRANCOIS Next Of Kin [address] [place] [address] Insurance Providers Payer Name Policy Number Subscriber Name Relationship Medicare [id number] Misa Lund 18 Self / Same As Patient [facility] [id number] Misa Lund 18 Self / Same As Patient Advance Directives Directive Response Recorded Date/Time Do you have an Advanced Directive? No 07/10/15 10:01pm Advance Directives N N 12/08/15 9:31pm Living Will No 12/08/15 9:31pm Health Care Proxy No 12/08/15 9:31pm Power of Inserting Press Operator for Health Care No 12/08/15 9:31pm Organ, Tissue, or Eye Donor No 12/08/15 9:31pm Do you have a signed organ donor card? No 12/08/15 9:31pm Chief Complaint and Reason for Visit Chief Complaint CHEST PAIN Reason for Visit Chest pain Problems Active Problems Medical Problem Onset Date Status Acute exacerbation of chronic obstructive pulmonary disease (COPD) Unknown Acute Bipolar 1 disorder Unknown Acute Chest pain Unknown Acute Chest wall pain Unknown Acute Medications Current Home Medications Medication Dose Units Route Directions Days/Qty Instructions Start Date Levofloxacin 750 Mg 750 Mg Oral Daily 10 06/21/15 Albuterol Sulfate 2.5 Mg/3 Ml 2.5 Mg Inhalation Every 4-6 Hours As Needed as needed for Shortness Of Breath 30 As needed for Wheezing/Asthma 06/21/15 Trazodone Hcl 150 Mg 150 Mg Oral Bedtime 06/25/15 Tramadol Hcl 50 Mg 50 Mg Oral Every 6 Hours as needed for Pain 15 Lorazepam 0.5 Mg 0.5 Mg Oral As Needed for Anxiety 60 06/25/15 Nitroglycerin 0.4 Mg 0.4 Mg Sublingual As Needed for Chest Pain Omeprazole 20 Mg 20 Mg Oral Twice A Day 60 06/25/15 Potassium Chloride 10 Meq 10 Meq Oral Daily 06/25/15 Levothyroxine Sodium 150 Mcg 150 Mcg Oral Daily 30 06/25/15 Aripiprazole 10 Mg 10 Mg Oral Daily 30 06/25/15 Buspirone Hcl 10 Mg 15 Mg Oral Three Times A Day 06/25/15 Carbamazepine 100 Mg 200 Mg Oral Twice A Day 06/25/15 Carvedilol 6.25 Mg 6.25 Mg Oral Twice A Day 60 06/25/15 Duloxetine Hcl 30 Mg 30 Mg Oral Daily 30 06/25/15 Gabapentin 300 Mg 300 Mg Oral Three Times A Day 90 06/25/15 Duloxetine Hcl 60 Mg 60 Mg Oral Daily Am 30 07/23/15 Warfarin Sodium 6 Mg 6 Mg Oral Even Days 30 07/23/15 Warfarin Sodium 7.5 Mg 7.5 Mg Oral Odd Days 30 07/23/15 Levothyroxine Sodium 150 Mcg 150 Mcg Oral Daily 30 07/23/15 Trazodone Hcl 150 Mg 150 Mg Oral Bedtime 07/23/15 Potassium Chloride 10 Meq 10 Meq Oral Daily 07/23/15 Duloxetine Hcl 30 Mg 30 Mg Oral 1700 30 07/23/15 Topiramate 100 Mg 100 Mg Oral Twice A Day 30 07/23/15 Omeprazole 20 Mg 20 Mg Oral Twice A Day 60 07/23/15 Carvedilol 6.25 Mg 6.25 Mg Oral Twice A Day 60 07/23/15 Carbamazepine 200 Mg 200 Mg Oral Twice A Day 60 07/23/15 Gabapentin 300 Mg 300 Mg Oral Three Times A Day 90 07/23/15 Buspirone Hcl 10 Mg 15 Mg Oral Three Times A Day 07/23/15 Acidophilus/Pectin, [place] 1 Each 1 Tab Oral Daily 07/23/15 Biotin 2,500 Mcg 5,000 Mcg Oral Twice A Day 07/23/15 Tramadol Hcl 50 Mg 50 Mg Oral Every 8 Hours As Needed Pain 15 07/23/15 Lorazepam 0.5 Mg 0.5 Mg Oral Every 6 Hours As Needed 60 07/23/15 Albuterol Sulfate (Proair Hfa) 8.5 Gm 1 Puff Inhalation Four Times Daily As Needed 07/23/15 Nitroglycerin 0.4 Mg 0.4 Mg Sublingual As Needed 07/23/15 Aripiprazole 10 Mg 10 Mg Oral Daily 30 07/23/15 Fentanyl 1 Ea 1 Ea Transderm Every Three Days 10 07/23/15 Meloxicam 7.5 Mg 7.5 Mg Oral Twice A Day 30 07/23/15 Past Home Medications Medication Directions Ordered Status Prednisone 10 Mg Tablet, 50 Mg Oral Daily 06/21/15 Discontinued Warfarin Sodium 6 Mg Tablet, 12 Mg Oral Every Other Day 06/25/15 Discontinued Warfarin Sodium 7.5 Mg Tablet, 7.5 Mg Oral Every Other Day 06/25/15 Discontinued Prazosin Hcl 2 Mg Capsule, 1 Mg Oral Bedtime 06/25/15 Discontinued Topiramate 100 Mg Tablet, 100 Mg Oral Twice A Day 06/25/15 Discontinued Acetaminophen/Hydrocodone Bitart (Lortab 7.5-325 Tab*) 1 Tab Tablet, 1 Each Oral Every 4 Hrs As Needed Pain for Pain 06/25/15 Discontinued Social History Social History Problem Response Recorded Date/Time Smoking Status Current every day smoker 12/08/2015 10:00pm Alcohol Use none 12/08/2015 10:00pm Drug Use none 12/08/2015 10:00pm Query Response Start Date Stop Date Smoking Status Current every day smoker Hospital Discharge Instructions No hospital discharge instructions. Plan of Care Discharge Date 12/09/15 12:20am Condition at Discharge Stable Instructions/Education Provided Noncardiac Chest Pain (ED) Prescriptions See Medication Section Referrals ESTEPHANIE MACHADO MD - 2-3 Days Functional Status Query Response Date Recorded [place] Coma Scale Total 15 December 08, 2015 9:40pm Patient Behavior Cooperative December 08, 2015 9:40pm Allergies, Adverse Reactions, Alerts Allergen Type Severity Reaction Status Last Updated IODINE Allergy Unknown Active 07/24/15 Penicillin Allergy Unknown Active 07/24/15 Cephalosporins Allergy Unknown Active 07/24/15 Tetracyclines Allergy Unknown Active 07/24/15 SULFA (SULFONAMIDE ANTIBIOTICS) Allergy Unknown Active 07/24/15 Morphine Allergy Unknown Active 07/24/15 Codeine Allergy Unknown Active 07/24/15 Aspirin Allergy Unknown Active 07/24/15 Erythromycin base Allergy Unknown Active 07/24/15 Diphenhydramine Allergy Unknown Active 07/24/15 Ketorolac Allergy Unknown Active 07/24/15 Immunizations Name Given Type Hx Diphtheria, Pertussis, Tetanus Vaccination Unknown Historical Hx Influenza Vaccination N refuses Historical Hx Pneumococcal Vaccination Y 2015 Historical Vital Signs Acute Vital Signs Vital Response Date/Time Temperature (Fahrenheit) 97.9 degrees F (97.6 - 99.5) 12/09/2015 12:19am Temperature Source Temporal Artery 12/09/2015 12:19am Pulse Rate (adult) 78 bpm (60 - 90) 12/09/2015 12:19am Respiratory Rate 22 bpm (12 - 24) 12/09/2015 12:19am Blood Pressure 167/76 mm Hg 12/09/2015 12:19am O2 Sat by Pulse Oximetry 94 % (90 - 100) 12/09/2015 12:19am Oxygen Delivery Method Nasal Cannula 12/09/2015 12:19am Pain Description 12/08/2015 11:50pm Height 5 ft 6 in Weight 308 lb Body Mass Index 49.0 kg/m^2 Results Laboratory Results Test Name Result Units Flags Reference Collection Date/Time Result Date/ Time Comments White Blood Count 13.8 K/uL H 4.8-10.8 12/08/2015 10:00pm 12/08/2015 10: 12pm Red Blood Count 4.92 M/uL 4.20-5.40 12/08/2015 10:00pm 12/08/2015 10: 12pm Hemoglobin 14.5 gm/dL 12.0-16.0 12/08/2015 10:00pm 12/08/2015 10:12pm Hematocrit 46.0 % 37.0-47.0 12/08/2015 10:00pm 12/08/2015 10:12pm Mean Corpuscular Volume 93.4 fL 81.0-99.0 12/08/2015 10:00pm 2015 10:12pm Mean Corpuscular Hemoglobin 29.5 pg 27.0-31.0 12/08/2015 10:00pm 2015 10:12pm Mean Corpuscular Hemoglobin Concent 31.6 g/dL 30.0-37.0 12/08/2015 10: 00pm 12/08/2015 10:12pm Red Cell Distribution Width 15.0 % H 11.5-14.5 12/08/2015 10:00pm 2015 10:12pm Platelet Count 227 K/uL 130-400 12/08/2015 10:00pm 12/08/2015 10:12pm Mean Platelet Volume 7.4 fL 7.4-10.4 12/08/2015 10:00pm 12/08/2015 10: 12pm Neutrophils (%) (Auto) 69.5 % 42.2-75.2 12/08/2015 10:00pm 12/08/2015 10:12pm Lymphocytes (%) (Auto) 22.3 % 20.5-51.1 12/08/2015 10:00pm 12/08/2015 10:12pm Monocytes (%) (Auto) 4.5 % 1.7-9.3 12/08/2015 10:00pm 12/08/2015 10: 12pm Eosinophils (%) (Auto) 2.6 % 0-3 12/08/2015 10:00pm 12/08/2015 10:12pm Basophils (%) (Auto) 1.1 % H 0.0-1.0 12/08/2015 10:00pm 12/08/2015 10: 12pm Neutrophils # (Auto) 9.6 K/uL H 2.0-6.9 12/08/2015 10:00pm 12/08/2015 10 :12pm Lymphocytes # (Auto) 3.1 K/uL 1.2-3.4 12/08/2015 10:00pm 12/08/2015 10: 12pm Monocytes # (Auto) 0.6 K/uL 0.1-0.6 12/08/2015 10:00pm 12/08/2015 10: 12pm Eosinophils # (Auto) 0.4 K/uL 0.0-0.7 12/08/2015 10:00pm 12/08/2015 10: 12pm Basophils # (Auto) 0.2 K/uL 0.0-0.2 12/08/2015 10:00pm 12/08/2015 10: 12pm Random Glucose 108 mg/dL 70-110 12/08/2015 10:00pm 12/08/2015 10:32pm Blood Urea Nitrogen 15 mg/dL 7-18 12/08/2015 10:00pm 12/08/2015 10: 32pm Creatinine 0.9 mg/dL 0.55-1.02 12/08/2015 10:00pm 12/08/2015 10:32pm Sodium Level 138 mEq/L 136-145 12/08/2015 10:00pm 12/08/2015 10:32pm Potassium Level 4.0 mEq/L 3.5-5.0 12/08/2015 10:00pm 12/08/2015 10: 32pm Chloride Level 102 mEq/L 98-107 12/08/2015 10:00pm 12/08/2015 10:32pm Carbon Dioxide Level 27.3 mEq/L 21-32 12/08/2015 10:00pm 12/08/2015 10: 32pm Calcium Level 8.7 mg/dL L 8.8-10.5 12/08/2015 10:00pm 12/08/2015 10: 32pm Total Protein 7.4 gm/dL 6.4-8.2 12/08/2015 10:00pm 12/08/2015 10:32pm Albumin 2.9 gm/dL L 3.4-5.0 12/08/2015 10:00pm 12/08/2015 10:32pm Total Bilirubin 0.20 mg/dL 0.00-1.00 12/08/2015 10:00pm 12/08/2015 10: 32pm Aspartate Amino Transf (AST/SGOT) 6 U/L L 15-37 12/08/2015 10:00pm 12/07 10:32pm Alanine Aminotransferase (ALT/SGPT) 19 U/L 12-78 12/08/2015 10:00pm 10:32pm Total Alkaline Phosphatase 118 U/L H 46-116 12/08/2015 10:00pm 2015 10:32pm Creatine Kinase MB 1.0 NG/ML 0-3.6 12/08/2015 10:00pm 12/08/2015 10: 32pm Myoglobin 19.0 NG/ML 10.5-92.5 12/08/2015 10:00pm 12/08/2015 10:32pm Troponin I 0.0 NG/ML 0.0-0.2 12/08/2015 10:00pm 12/08/2015 10:32pm Glomerular Filtration Rate Calc 68.1 mL/min 12/08/2015 10:00pm 2015 10:32pm Procedures Procedure Status Date Provider(s) Portable x-ray of chest Completed 12/08/15 JOAQUIN ROGERS MD Encounters Encounter Location Arrival/Admit Date Discharge/Depart Date Attending Provider Departed Emergency Room [place] 12/08/15 9:29pm 12/09/15 12:20am JOAQUIN ROGERS MD Recent Diagnosis
--- OUTSIDE RECORDS SUMMARY | 2018-07-10 18:48 | XMS REPORT | Continuity of Care Document ---
Author Author [facility] Organization [facility] Address [facility] [address] [place] [address] Phone Unavailable Support Name Relationship Address Phone LATASHA GONZALEZ D.O. Caregiver [address] [place] [address] ESTEPHANIE MACHADO MD Caregiver [address] [place] [address] CARMELINA CHRISTINE DO Caregiver [address] [place] [address] Unavailable SHMUEL FRANCOIS Next Of Kin [address] [place] [address] Insurance Providers Payer Name Policy Number Subscriber Name Relationship Medicare [id number] Misa Lund 18 Self / Same As Patient [place] [employer] [id number] Misa Lund 18 Self / Same As Patient Advance Directives Directive Response Recorded Date/Time Do you have an Advanced Directive? No 07/10/15 10:01pm Advance Directives No 09/22/16 10:40pm Living Will No 09/22/16 10:40pm Health Care Proxy No 09/24/16 7:27pm Power of Non Destructive Evaluation Manager for Health Care No 09/22/16 10:40pm Organ, Tissue, or Eye Donor No 09/22/16 10:40pm Do you have a signed organ donor card? No 12/08/15 9:31pm Chief Complaint and Reason for Visit Chief Complaint COPD Reason for Visit [id number] Problems Active Problems Medical Problem Onset Date Status Acute exacerbation of chronic obstructive pulmonary disease (COPD) Unknown Acute Bipolar 1 disorder Unknown Acute Chest pain Unknown Acute Chest wall pain Unknown Acute Lumbar strain Unknown Acute Medications Current Home Medications Medication Dose Units Route Directions Days/Qty Instructions Start Date Albuterol Sulfate 2.5 Mg/3 Ml 2.5 Mg Inhalation Every 4-6 Hours As Needed as needed for Shortness Of Breath 30 As needed for Wheezing/Asthma 06/21/15 Tramadol Hcl 50 Mg 50 Mg Oral Every 6 Hours as needed for Pain 15 Nitroglycerin 0.4 Mg 0.4 Mg Sublingual As Needed for Chest Pain Aripiprazole 10 Mg 10 Mg Oral Daily 30 06/25/15 Carvedilol 6.25 Mg 6.25 Mg Oral Twice A Day 60 06/25/15 Duloxetine Hcl 30 Mg 30 Mg Oral Daily 30 06/25/15 Duloxetine Hcl 60 Mg 60 Mg Oral Daily Am 30 07/23/15 Trazodone Hcl 150 Mg 150 Mg Oral Bedtime 07/23/15 Omeprazole 20 Mg 20 Mg Oral Twice A Day 60 07/23/15 Carbamazepine 200 Mg 200 Mg Oral Twice A Day 60 07/23/15 Gabapentin 300 Mg 300 Mg Oral Three Times A Day 90 07/23/15 Buspirone Hcl 10 Mg 15 Mg Oral Three Times A Day 07/23/15 Acidophilus/Pectin, Bee 1 Each 1 Tab Oral Daily 07/23/15 Albuterol Sulfate (Proair Hfa) 8.5 Gm 1 Puff Inhalation Four Times Daily As Needed 07/23/15 Loperamide Hcl 2 Mg 2 Mg Oral 05/02/16 Acetaminophen 500 Mg 1,000 Mg Oral Every 4-6 Hours 05/02/16 Amlodipine Besylate 5 Mg 5 Mg Oral Daily 30 09/22/16 Potassium Chloride 10 Meq 10 Meq Oral Daily 30 09/22/16 Spironolactone 25 Mg 25 Mg Oral Every Other Day 09/22/16 Spironolactone 25 Mg 25 Mg Oral 3 Times A Week 09/22/16 Levothyroxine Sodium 200 Mcg 200 Mcg Oral Daily 30 09/22/16 Ipratropium [place] 0.5 Mg/2.5 Ml 0.5-2.5 Mg Inhalation Twice A Day 09/22/16 Topiramate 100 Mg 100 Mg Oral Twice A Day 30 09/22/16 Sucralfate 1 G 1 Gm Oral Four Times Daily 09/22/16 Phenol/Glycerin 30 Ml 5 [place] Nasal As Needed 09/22/16 Hydroxyzine Hcl 50 Mg 50 Mg Oral As Needed 30 09/22/16 Magnesium Hydroxide 400 Mg/5 Ml 30 Ml Oral As Needed 09/22/16 Al Hydrox/Mg Hydrox/Simethicone 148 Ml 30 Ml Oral As Needed as needed for Indigestion 01/28/17 Guaifenesin/Dextromethorphan (Tussin Dm Max Liquid*) 118 Ml 5-10 Ml Oral Every 4 Hours 09/22/16 Warfarin Sodium 7.5 Mg 7.5 Mg Oral Daily 09/22/16 Warfarin Sodium 7.5 Mg 15 Mg Oral Daily 09/22/16 Mupirocin 22 Gm 22 Gm External Daily 09/22/16 Albuterol (Ventolin 17GM Hfa Inhaler*) 1 Puff 2 Puff Inhalation Every 6 Hours As Needed as needed for Wheezing 1 INHALE 2 PUFFS 09/24/16 Past Home Medications Medication Directions Ordered Status Levofloxacin 750 Mg Tablet, 750 Mg Oral Daily 06/21/15 Discontinued Prednisone 10 Mg Tablet, 50 Mg Oral Daily 06/21/15 Discontinued Warfarin Sodium 6 Mg Tablet, 12 Mg Oral Every Other Day 06/25/15 Discontinued Warfarin Sodium 7.5 Mg Tablet, 7.5 Mg Oral Every Other Day 06/25/15 Discontinued Trazodone Hcl 150 Mg Tablet, 150 Mg Oral Bedtime 06/25/15 Discontinued Lorazepam 0.5 Mg Tablet, 0.5 Mg Oral As Needed for Anxiety 06/25/15 Discontinued Omeprazole 20 Mg Capsule.dr, 20 Mg [...] Tablet, 150 Mcg Oral Daily 07/23/15 Discontinued Potassium Chloride 10 Meq Tab, 10 Meq Oral Daily 07/23/15 Discontinued Duloxetine Hcl 30 Mg Capsule.dr, 30 Mg Oral 1700 07/23/15 Discontinued Topiramate 100 Mg Tablet, 100 Mg Oral Twice A Day 07/23/15 Discontinued Carvedilol 6.25 Mg Tablet, 6.25 Mg Oral Twice A Day 07/23/15 Discontinued Biotin 2,500 Mcg Capsule, 5000 Mcg Oral Twice A Day 07/23/15 Discontinued Tramadol Hcl 50 Mg Tablet, 50 Mg Oral Every 8 Hours As Needed Pain 07/23/15 Discontinued Lorazepam 0.5 Mg Tablet, 0.5 Mg Oral Every 6 Hours As Needed 07/23/15 Discontinued Nitroglycerin 0.4 Mg [...] Oral Three Times Daily With Meals Discontinued Cetirizine Hcl 10 Mg Tab.rapdis, 10 Mg Oral 05/02/16 Discontinued Cyclobenzaprine Hcl (Flexeril*) 10 Mg Tablet, 10 Mg Oral Twice A Day Discontinued Social History Social History Problem Response Recorded Date/Time Smoking Status Current every day smoker 09/22/2016 10:40pm Tobacco Use Cigarettes 05/02/2016 3:40pm Query Response Start Date Stop Date Smoking Status Current every day smoker Hospital Discharge Instructions No hospital discharge instructions. Plan of Care Discharge Date 09/24/16 10:32pm Disposition 01 HOME, SNF,ASSISTED LIVING Condition at Discharge Stable Instructions/Education Provided Asthma (ED) Prescriptions See Medication Section Referrals ESTEPHANIE MACHADO MD - Functional Status Query Response Date Recorded [place] Coma Scale Total 15 September 24, 2016 6:39pm Patient Behavior Appropriate September 24, 2016 6:39pm Allergies, Adverse Reactions, Alerts Allergen Type Severity Reaction Status Last Updated IODINE Allergy Unknown Active 09/24/16 Penicillin Allergy Unknown Active 09/24/16 Cephalosporins Allergy Unknown Active 09/24/16 Tetracyclines Allergy Unknown Active 09/24/16 SULFA (SULFONAMIDE ANTIBIOTICS) Allergy Unknown Active 09/24/16 Morphine Allergy Unknown Active 09/24/16 Codeine Allergy Unknown Active 09/24/16 Aspirin Allergy Unknown Active 09/24/16 Erythromycin base Allergy Unknown Active 09/24/16 Diphenhydramine Allergy Unknown Active 09/24/16 Ketorolac Allergy Unknown Active 09/24/16 Immunizations Name Given Type Hx Diphtheria, Pertussis, Tetanus Vaccination Up To Date Historical Hx Influenza Vaccination Y 2015 Historical Hx Pneumococcal Vaccination Y 2013 Historical Hx Tetanus, Diphtheria Vaccination Yes Historical Hx Tetanus Toxoid Vaccination Yes Historical Vital Signs Acute Vital Signs Vital Response Date/Time Temperature (Fahrenheit) 98.8 degrees F (97.6 - 99.5) 09/24/2016 10:05pm Temperature Source Temporal Artery 09/24/2016 10:05pm Pulse Rate (adult) 80 bpm (60 - 90) 09/24/2016 10:05pm Respiratory Rate 22 bpm (12 - 24) 09/24/2016 10:05pm Blood Pressure 143/73 mm Hg 09/24/2016 10:05pm O2 Sat by Pulse Oximetry 93 % (90 - 100) 09/24/2016 10:05pm Oxygen Delivery Method 09/24/2016 10:05pm Oxygen Flow Rate 2.0 L/min 09/23/2016 6:16am Pain Intensity 6 09/23/2016 8:10am Pain Location Body Site Modifier 09/23/2016 11:14am Pain Description 09/24/2016 7:05pm Height 5 ft 5 in Weight 264 lb Body Mass Index 44.0 kg/m^2 Results Laboratory Results Test Name Result Units Flags Reference Collection Date/Time Result Date/ Time Comments Free Thyroxine (T4) Calculated 0.82 ng/dL 0.76-1.46 08/24/2016 UNK 7:04pm Thyroid Stimulating Hormone (TSH) 5.75 uIU/ml H 0.36-3.74 08/24/2016 UNK 08/24/2016 7:03pm Pending Laboratory Results Test Name Collection Date/Time Continuity of Care Document Created on: 09/23/2016 MISA LUND : 1955 Sex: Female Author Author [facility] Organization [facility] Address [address] [place] [address] Phone Unavailable Care Team Providers Care Card Game Operator Name Role Phone ELISEO Paulino APRN CP Unavailable Insurance Providers Payer Name Policy Number Subscriber Name Relationship Medicare [id number] Misa Lund 18 Self / Same As Patient [place] [facility] [id number] Misa Lund Self / Same As Patient Advance Directives Directive Response Recorded Date/Time Do you have an Advanced Directive? No 07/10/15 10:01pm Advance Directives No 09/22 10:40pm Living Will No 09/22 10:40pm Health Care Proxy No 09/22 10:40pm Power of Non Destructive Evaluation Manager for Health Care No 09/22/16 10:40pm Organ, Tissue, or Eye Donor No 09/22/16 [...] Unknown Acute Chest wall pain Unknown Acute Lumbar strain Unknown Acute Medications Current Home Medications Medication Dose Units Route Directions Days/ Qty Instructions Start Date Albuterol Sulfate 2.5 Mg/3 Ml 2.5 Mg Inhalation Every 4-6 Hours As Needed as needed for Shortness Of Breath 30 As needed for Wheezing/Asthma 06/21/15 Tramadol Hcl 50 Mg 50 Mg Oral Every 6 Hours as needed for Pain 15 06/25/15 Nitroglycerin 0.4 Mg 0.4 Mg Sublingual As Needed for Chest Pain 06/25/15 Aripiprazole 10 Mg 10 Mg Oral Daily 30 06/25/15 Carvedilol 6.25 Mg 6.25 Mg Oral Twice A Day 60 06/25/15 Duloxetine Hcl 30 Mg 30 Mg Oral Daily 30 06/25/15 Duloxetine Hcl 60 Mg 60 Mg Oral Daily Am 30 07/23/15 Trazodone Hcl 150 Mg 150 Mg Oral Bedtime 07/23/15 Omeprazole 20 Mg 20 Mg Oral Twice A Day 60 07/23/15 Carbamazepine 200 Mg 200 Mg Oral Twice A Day 60 07/23/15 Gabapentin 300 Mg 300 Mg Oral Three Times A Day 90 07/23/15 Buspirone Hcl 10 Mg 15 Mg Oral Three Times A Day 07/23/15 Acidophilus/Pectin, Bee 1 Each 1 Tab Oral Daily 07/23/15 Albuterol Sulfate (Proair Hfa) 8.5 Gm 1 Puff Inhalation Four Times Daily As Needed 07/23/15 Loperamide Hcl 2 Mg 2 Mg Oral 05/02/16 Acetaminophen 500 Mg 1,000 Mg Oral Every 4-6 Hours 05/02/16 Amlodipine Besylate 5 Mg 5 Mg Oral Daily 30 09/22/16 Potassium Chloride 10 Meq 10 Meq Oral Daily 30 09/22/16 Spironolactone 25 Mg 25 Mg Oral Every Other Day 09/22/16 Spironolactone 25 Mg 25 Mg Oral 3 Times A Week 09/22/16 Levothyroxine Sodium 200 Mcg 200 Mcg Oral Daily 30 09/22/16 Ipratropium [place] 0.5 Mg/2.5 Ml 0.5-2.5 Mg Inhalation Twice A Day 09/22/16 Topiramate 100 Mg 100 Mg Oral Twice A Day 30 09/22/16 Sucralfate 1 G 1 Gm Oral Four Times Daily 09/22/16 Phenol/Glycerin 30 Ml 5 [place] Nasal As Needed 09/22/16 Hydroxyzine Hcl 50 Mg 50 Mg Oral As Needed 30 09/22/16 Magnesium Hydroxide 400 Mg/5 Ml 30 Ml Oral As Needed 09/22/16 Al Hydrox/Mg Hydrox/Simethicone 148 Ml 30 Ml Oral As Needed as needed for Indigestion 09/22/16 Guaifenesin/Dextromethorphan (Tussin Dm Max Liquid*) 118 Ml 5-10 Ml Oral Every 4 Hours 09/22/16 Warfarin Sodium 7.5 Mg 7.5 Mg Oral Daily 09/22/16 Warfarin Sodium 7.5 Mg 15 Mg Oral Daily 09/22/16 Mupirocin 22 Gm 22 Gm External Daily 09/22/16 Past Home Medications Medication Directions Ordered Status Levofloxacin 750 Mg Tablet, 750 Mg Oral Daily 06/21/15 Discontinued Prednisone 10 Mg Tablet, 50 Mg Oral Daily 06/21/15 Discontinued Warfarin Sodium 6 Mg Tablet, 12 Mg Oral Every Other Day 06/25/15 Discontinued Warfarin Sodium 7.5 Mg Tablet, 7.5 Mg Oral Every Other Day 06/25/15 Discontinued Trazodone Hcl 150 Mg Tablet, 150 Mg Oral Bedtime 06/25/15 Discontinued Lorazepam 0.5 Mg Tablet, 0.5 Mg Oral As Needed for Anxiety 06/25/15 Discontinued Omeprazole 20 Mg Capsule.dr, 20 Mg Oral Twice A Day 06/25/15 Discontinued Potassium Chloride 10 Meq Tab, 10 Meq Oral Daily 06/25/15 Discontinued Prazosin Hcl 2 Mg Capsule, 1 Mg Oral Bedtime 06/25/15 Discontinued Levothyroxine Sodium 150 Mcg Tablet, 150 Mcg Oral Daily 06/25/15 Discontinued Topiramate 100 Mg Tablet, 100 Mg Oral Twice A Day 06/25/15 Discontinued Acetaminophen/Hydrocodone Bitart (Lortab 7.5- 325 Tab*) 1 Tab Tablet, 1 Each Oral [...] Tablet, 150 Mcg Oral Daily 07/23/15 Discontinued Potassium Chloride 10 Meq Tab, 10 Meq Oral Daily 07/23/15 Discontinued Duloxetine Hcl 30 Mg Capsule.dr, 30 Mg Oral 1700 07/23/15 Discontinued Topiramate 100 Mg Tablet, 100 Mg Oral Twice A Day 07/23/15 Discontinued Carvedilol 6.25 Mg Tablet, 6.25 Mg Oral Twice A Day 07/23/15 Discontinued Biotin 2,500 Mcg Capsule, 5000 Mcg Oral Twice A Day 07/23/15 Discontinued Tramadol Hcl 50 Mg Tablet, 50 Mg Oral Every 8 Hours As Needed Pain 07/23/15 Discontinued Lorazepam 0.5 Mg Tablet, 0.5 Mg Oral Every 6 Hours As Needed 07/23/15 Discontinued Nitroglycerin 0.4 Mg Tab.subl, 0.4 Mg Sublingual As Needed 07/23/15 Discontinued Aripiprazole 10 Mg Tablet, 10 Mg Oral Daily 07/23/15 Discontinued Fentanyl 1 Ea Tdsy, 1 Ea Transderm Every Three Days Discontinued Meloxicam 7.5 Mg Tablet, 7.5 Mg Oral Twice A Day 07/23/15 Discontinued Cyclobenzaprine Hcl (Flexeril*) 10 Mg Tablet, 10 Mg Oral Three Times A Day 05/02/16 Discontinued Calcium Carbonate 500 ( Tab.chew, 500 Mg Oral Three Times Daily With Meals 05/02/16 Discontinued Cetirizine Hcl 10 Mg Tab.rapdis, 10 Mg Oral 05/02/16 Discontinued Cyclobenzaprine Hcl (Flexeril*) 10 Mg Tablet, 10 Mg Oral Twice A Day 05/02/16 Discontinued Social History Social History Problem Response Recorded Date/Time Smoking Status Current every day smoker 10:40pm Tobacco Use Cigarettes 05/02 3:40pm Alcohol Use none 09/22 9:19pm Drug Use none 09/22 9:19pm Query Response Start Date Stop Date Smoking Status Current every day smoker Hospital Discharge Instructions Discharge Instructions Provider Instructions Make Appointment with: Dr. Machado [phone] Follow Up In: 2 Weeks Smoking Cessation If you are a smoker, the following is recommended: Stop all tobacco use; for help quitting, please call [phone]. Notify Physician If: Chest Pain Nursing Instructions Flu Vaccine Received this Visit: No Comment: REFUSES Pneumonia Vaccine Received this Visit: Yes Comment: CURRENT 2013 Education #1 Topic: CHEST PAIN Methods: Handout Response: Verbalize understanding Recipient: Primary Caregiver Patient specific education materials provided?: Yes Patient Request Electronic Discharge Instructions: No Patient Received Electronic Discharge Instructions: No Patient Health Summary printed/downloaded for the patient?: Yes Valuables Returned: Yes Medications Returned: No Left Against Medical Advice: N/A Plan of Care Discharge Date 09/23/16 1: 36pm Disposition 01 HOME, SNF, ASSISTED LIVING Instructions/Education Provided Chest Pain ( DC) Prescriptions See Medication Section Care Plan and Goals See Discharge Instructions Section Functional Status Query Response Date Recorded Patient Behavior Cooperative Appropriate September 22, 2016 10:40pm Allergies, Adverse Reactions, Alerts Allergen Type Severity Reaction Status Last Updated IODINE Allergy Unknown Active 09/22/16 Penicillin Allergy Unknown Active 09/22/16 Cephalosporins Allergy Unknown Active 09/22/16 Tetracyclines Allergy Unknown Active 09/22/16 SULFA (SULFONAMIDE ANTIBIOTICS) Allergy Unknown Active 09/22/16 Morphine Allergy Unknown Active 09/22/16 Codeine Allergy Unknown Active 09/22/16 Aspirin Allergy Unknown Active 09/22/16 Erythromycin base Allergy Unknown Active 09/22/16 Diphenhydramine Allergy Unknown Active 09/22/16 Ketorolac Allergy Unknown Active 09/22/16 Immunizations Name Given Type Hx Diphtheria, Pertussis, Tetanus Vaccination Unknown Historical Hx Influenza Vaccination No Historical Hx Pneumococcal Vaccination Y 2013 Historical Hx Tetanus, Diphtheria Vaccination Yes Historical Hx Tetanus Toxoid Vaccination Yes Historical Vital Signs Acute Vital Signs Vital Response Date/ Time Temperature (Fahrenheit) 97.8 degrees F (97.6 - 99.5 ) 09/23/2016 9:59am Temperature Source Temporal Artery 09/23 9:59am Pulse Rate (adult) 74 bpm (60 - 90) 09/23 9:59am Respiratory Rate 20 bpm (12 - 24) 09/23 9:59am Blood Pressure 123/72 mm Hg 09/23 9:59am O2 Sat by Pulse Oximetry 96 % (90 - 100) 9:59am Oxygen Delivery Method 10:14pm Oxygen Flow Rate 2.0 L/min 09/23 6:16am Pain Intensity 6 09/23 8:10am Pain Location Body Site Modifier 09/23/2016 11:14am Pain Description Throbbing Aching 09/23/2016 11:14am Height 5 ft 5 in Weight 311 lb Body Mass Index 51.0 kg/m^2 Results Laboratory Results Test Name Result Units Flags Reference Collection Date/Time Result Date/Time Comments Free Thyroxine (T4) Calculated 0.82 ng/dL 0.76-1.46 08/24/2016 UNK 08/24/2016 7:04pm Thyroid Stimulating Hormone (TSH) 5.75 uIU/ml H 0.36-3.74 08/24/2016 UNK 08/24/2016 7:03pm Pending Laboratory Results Test Name Collection Date/Time Procedures Procedure Status Date Provider(s) ASSAY OF FREE THYROXINE Completed 08/24/16 ASSAY THYROID STIM HORMONE Completed 08/24/16 METABOLIC PANEL TOTAL CA Completed 09/14/16 Portable x-ray of chest Completed 09/22/16 SHANELLE GARCIA MD Encounters Encounter Location Arrival/Admit Date Discharge/ Depart Date Attending Provider Admitted Inpatient (obs) [place] 09/22/16 11:18pm ESTEPHANIE MACHADO MD Registered Referred [place] 09/14/16 3:48pm ESTEPHANIE MACHADO MD Registered Referred [place] 08/24/16 5:38pm CARY LUI APRN Recent Diagnosis Chest pain on Procedures Procedure Status Date Provider(s) ASSAY OF FREE THYROXINE Completed 08/24/16 ASSAY THYROID STIM HORMONE Completed 08/24/16 METABOLIC PANEL TOTAL CA Completed 09/14/16 Portable x-ray of chest Active 09/22/16 SHANELLE GARCIA MD Portable x-ray of chest Completed 09/24/16 CARMELINA CHRISTINE DO Encounters Encounter Location Arrival/Admit Date Discharge/Depart Date Attending Provider Departed Emergency Room [place] 09/24/16 6:39pm 09/24/16 10:32pm LATASHA GONZALEZ D.O. Discharged Inpatient (obs) [place] 09/22/16 11:18pm 09/23/16 1:36pm ESTEPHANIE MACHADO MD Registered Referred [place] 09/14/16 3:48pm ESTEPHANIE MACHADO MD Registered Referred [place] 08/24/16 5:38pm CARY LUI APRN Recent Diagnosis
--- OUTSIDE RECORDS SUMMARY | 2018-07-10 18:49 | XMS REPORT | Continuity of Care Document ---
Author Author [facility] Organization [facility] Address [facility] [address] [place] [address] Phone Unavailable Support Name Relationship Address Phone ESTEPHANIE MACHADO MD Caregiver [address] [place], [place] [address] MARTY DUNN MD Caregiver [address] [place] [address] Unavailable SHMUEL FRANCOIS Next Of Kin [address] [place], [place] [address] Insurance Providers Guarantor Misa Lund Address [address] [place] [address] Payer Medicare Policy Number [id number] Subscriber's Name Misa Lund Relationship 18 Self / Same As Patient Payer [facility] Policy Number [id number] Subscriber's Name Misa Lund Relationship 18 Self / Same As Patient Advance Directives Directive Response Recorded Date/Time Do you have an Advanced Directive? No 07/10/15 10:01pm Advance Directives No 06/30/17 4:22am Living Will No 06/30/17 4:22am Health Care Proxy No 01/26/18 10:25pm Power of Sustainability Coordinator for Health Care No 06/30/17 4:22am Organ, Tissue, or Eye Donor No 06/30/17 4:22am Do you have a signed organ donor card? No 12/08/15 9:31pm Chief Complaint and Reason for Visit Chief Complaint SUICIDAL THOUGHTS Reason for Visit Suicidal ideation Problems Medical Problem Onset Date Status Acute exacerbation of chronic obstructive pulmonary disease (COPD) Unknown Acute Acute left lumbar radiculopathy Unknown Acute Bipolar 1 disorder Unknown Acute Bronchospasm Unknown Acute COPD (chronic obstructive pulmonary disease) Unknown Acute Chest pain Unknown Acute Chest wall pain Unknown Acute Chronic dermatitis Unknown Acute Chronic pain disorder Unknown Acute Dependent edema Unknown Acute Dyspnea Unknown Acute Fall Unknown Acute GERD (gastroesophageal reflux disease) Unknown Acute Hypertension Unknown Acute Knee pain, right Unknown Acute Lumbar strain Unknown Acute Morbid obesity Unknown Acute Muscle spasms of neck Unknown Acute Obesity Unknown Acute Obesity (BMI 35.0-39.9 without comorbidity) Unknown Acute Spasm of thoracic back muscle Unknown Acute Past Problems Medical Problem Onset Date Status Diarrhea Unknown Acute Influenza A Unknown Acute Left hip pain Unknown Acute Left knee pain Unknown Acute Subtherapeutic anticoagulation Unknown Acute Suicidal ideation Unknown Acute Suicidal ideations Unknown Acute Suicidal thoughts Unknown Acute UTI (urinary tract infection) Unknown Acute Urinary tract infection Unknown Acute Medications Current Home Medications Medication Dose Units Route Directions Days Qty Instructions Start Date Albuterol Sulfate (Ventolin Concentrate 2.5 Mg/ 0.5 Ml*) 2.5 Mg/0.5 Ml Vial.neb. 2.5 Mg RESPIRATORY (INHALATION) Every 6 To 8 Hours As Needed 20 Milliliter As needed for wheezing/asthma 12/01/17 Aripiprazole (Abilify*) 10 Mg Tablet 10 Mg ORAL Bedtime 30 Tablet Buspirone Hcl (Buspar) 10 Mg Tab 15 Mg ORAL Three Times A Day Carbamazepine (Tegretol 200 Mg Tab*) 200 Mg Tablet 200 Mg ORAL Twice A Day 60 Tablet Carvedilol (Coreg 6.25 Mg Tab*) 6.25 Mg Tablet 6.25 Mg ORAL Twice A Day 60 Tablet Duloxetine Hcl (Cymbalta*) 30 Mg Capsule.dr 30 Mg ORAL Bedtime 30 Cap Duloxetine Hcl (Cymbalta*) 60 Mg Capsule.dr 60 Mg ORAL Daily Am 30 Cap Gabapentin (Neurontin 300 Mg Cap*) 300 Mg Capsule 600 Mg ORAL Three Times A Day 90 Cap Hydroxyzine Hcl (Atarax 25 Mg Tab*) 25 Mg Tablet 25 Mg ORAL Twice A Day 60 Tablet Levothyroxine Sodium (Synthroid 200 Mcg Tab*) 200 Mcg Tablet 200 Mcg ORAL Bedtime 30 Tablet Metoclopramide Hcl (Reglan 10 Mg Tab*) 10 Mg Tablet 10 Mg ORAL Twice A Day 90 Tablet Take 30 minutes before meals Omeprazole (Prilosec 20MG) 20 Mg Capsule.dr 40 Mg ORAL Twice A Day Rivaroxaban (Xarelto) 20 Mg Tablet 20 Mg ORAL Bedtime Topiramate (Topamax 100 Mg Tab*) 100 Mg Tablet 100 Mg ORAL Twice A Day 30 Tablet Past Home Medications Medication Directions Ordered Status Acetaminophen (Tylenol 500 Mg Tab*) 500 Mg Tablet, 1000 Mg Oral Every 4 Hours As Needed Discontinued Acetaminophen/Hydrocodone Bitart ([place] 7.5-325 Tab*) 1 Tab Tablet, 1 Each Oral Every 4 Hrs As Needed Pain as needed for Pain Discontinued Acetaminophen/Hydrocodone Bitart ([place] 7.5-325 Tab*) 1 Tab Tablet, 1 Each Oral Every 6 Hrs As Needed For Pain as needed for Pain 10/22/16 Discontinued Acetaminophen/Hydrocodone Bitart ([place] 7.5-325 Tab*) 1 Tab Tablet, 1 Each Oral Every 4 Hrs As Needed Pain for Pain Discontinued Acidophilus/Pectin, [place] (Acidophilus-Pectin [place]) 1 Each Tablet, 1 Tab Oral Daily Discontinued Al Hydrox/Mg Hydrox/Simethicone (Mylanta Liq*) 355 Ml Oral.susp, 30 Ml Oral Daily as needed for Prn Discontinued Al Hydrox/Mg Hydrox/Simethicone (Maalox Suspension*) 148 Ml Oral.susp, 30 Ml Oral As Needed as needed for Indigestion Discontinued Albuterol (Proair 17GM Hfa Inhaler*) 1 Puff Inh, 1-2 Puff Inhalation Every 4 Hours As Needed Discontinued Albuterol (Proair 17GM Hfa Inhaler*) 1 Puff Inh, 2 Puff Inhalation Every 4-6 Hours As Needed for Shortness Of Breath 02/05/17 Discontinued Albuterol (Proair 17GM Hfa Inhaler*) 1 Puff Inh, 2 Puff Inhalation Every 6 Hours As Needed as needed for Wheezing 09/24/16 Discontinued Albuterol Sulfate (Proair Respiclick) 90 Mcg Aer.pow.ba, 2 Puff Inhalation Every 6 Hours As Needed as needed for Wheezing Discontinued Albuterol Sulfate (Ventolin Neb Premix 2.5 Mg/ 3 Ml*) 2.5 Mg/3 Ml Nebu, 2.5 Mg Inhalation Every 4-6 Hours As Needed 01/04/17 Discontinued Albuterol Sulfate (Ventolin Concentrate 2.5 Mg/ 0.5 Ml*) 2.5 Mg/0.5 Ml Vial.neb., 2.5 Mg Respiratory(Inhalation) Every 6 Hours As Needed Discontinued Albuterol Sulfate (Ventolin Neb Premix 2.5 Mg/ 3 Ml*) 2.5 Mg/3 Ml Nebu, 2.5 Mg Inhalation Every 4-6 Hours As Needed as needed for Shortness Of Breath Discontinued Albuterol Sulfate (Albuterol Sulfate Hfa) 8.5 Gm Hfa.aer.ad, 1 Puff Inhalation Four Times Daily As Needed Discontinued Amlodipine Besylate (Norvasc*) 5 Mg Tablet, 5 Mg Oral Daily Discontinued Aripiprazole (Abilify*) 10 Mg Tablet, 10 Mg Oral Daily Discontinued Atrovent Estefania 0.0.6% , 2 [place] Nasal Twice A Day Discontinued Azithromycin (Z-Pasha*) 250 Mg Tablet, 250 Mg Oral Daily Discontinued Baclofen (Baclofen*) 10 Mg Tablet, 10 Mg Oral Four Times Daily Discontinued Benzedrex , 2 Inh Every 2 Hours As Needed for Nasal Congestion Discontinued Biotin 2,500 Mcg Capsule, 5000 Mcg Oral Twice A Day Discontinued Buspirone Hcl (Buspar) 10 Mg Tab, 15 Mg Oral Three Times A Day Discontinued Buspirone Hcl (Buspar) 10 Mg Tab, 15 Mg Oral Three Times A Day Discontinued Calcium Carbonate (Tums 500*) 500 ( Tab.chew, 500 Mg Oral Three Times Daily With Meals Discontinued Carbamazepine (Tegretol 200 Mg Tab*) 200 Mg Tablet, 200 Mg Oral Twice A Day Discontinued Carbamazepine (Carbamazepine*) 100 Mg Cpmp.12hr, 200 Mg Oral Twice A Day Discontinued Carbatrol , 200 Mg Oral Twice A Day Discontinued Carvedilol (Coreg 6.25 Mg Tab*) 6.25 Mg Tablet, 6.25 Mg Oral Twice A Day Discontinued Carvedilol (Coreg 6.25 Mg Tab*) 6.25 Mg Tablet, 6.25 Mg Oral Twice A Day Discontinued Carvedilol (Coreg 6.25 Mg Tab*) 6.25 Mg Tablet, 6.25 Mg Oral Twice A Day Discontinued Ceftriaxone Sodium (Ceftriaxone*) 1 G/Vial Vial, 1 Gm Intravenous Daily Discontinued Cetirizine Hcl (Zyrtec) 10 Mg Tab.rapdis, 10 Mg Oral Discontinued Ciprofloxacin Hcl (Cipro 500 Mg Tab*) 500 Mg Tablet, 500 Mg Oral Twice A Day 07/15/17 Discontinued Cranberry Fruit Concentrate* (Cranberry*) 450 Mg Capsule, 900 Mg Oral Twice A Day Discontinued Cranberry Fruit Concentrate* (Cranberry*) 450 Mg Capsule, 900 Mg Oral Twice A Day Discontinued Cyclobenzaprine Hcl (Cyclobenzaprine Hcl*) 10 Mg Tablet, 10 Mg Oral Twice A Day 03/04/17 Discontinued Cyclobenzaprine Hcl (Cyclobenzaprine Hcl*) 10 Mg Tablet, 10 Mg Oral Three Times A Day Discontinued Cyclobenzaprine Hcl (Cyclobenzaprine Hcl*) 10 Mg Tablet, 10 Mg Oral Twice A Day 05/02/16 Discontinued Diazepam (Valium 5 Mg Tab*) 5 Mg Tablet, 5 Mg Oral Twice A Day 03/11/17 Discontinued Docusate Sodium (Colace 100 Mg Cap*) 100 Mg Capsule, 100 Mg Oral Twice A Day as needed for Constipation Discontinued Duloxetine Hcl (Cymbalta*) 30 Mg Capsule.dr, 30 Mg Oral Today At 5:00PM Discontinued Duoneb 0.5/2.5 , 1 Every 6 Hours As Needed for Wheezing Discontinued Fentanyl (Duragesic 25 Mcg/Hr Patch*) 1 Ea Tdsy, 1 Ea Transdermal Every Three Days Discontinued Gabapentin (Neurontin 300 Mg Cap*) 300 Mg Capsule, 300 Mg Oral Three Times A Day Discontinued Gabapentin (Neurontin 300 Mg Cap*) 300 Mg Capsule, 300 Mg Oral Three Times A Day Discontinued Guaifenesin/Dextromethorphan (Robitussin Dm Max Liquid*) 118 Ml Liquid, 10 Ml Oral Every 4 Hours as needed for Cough Discontinued Guaifenesin/Dextromethorphan (Robitussin Dm Max Liquid*) 118 Ml Liquid, 5-10 Ml Oral Every 4 Hours as needed for Cough Discontinued Guaifenesin/Dextromethorphan (Robitussin Dm Max Liquid*) 118 Ml Liquid, 5-10 Ml Oral Every 4 Hours Discontinued Hydroxyzine Hcl (Atarax 50 Mg Tab*) 50 Mg Tablet, 50 Mg Oral Daily as needed for Itching Discontinued Hydroxyzine Hcl (Atarax 50 Mg Tab*) 50 Mg Tablet, 50 Mg Oral As Needed Discontinued Hydroxyzine Pamoate , 50 Mg Oral Daily As Needed Discontinued Ipratropium [place] (Atrovent*) 0.5 Mg/2.5 Ml Nebu, 0.5-2.5 Mg Respiratory ( Inhalation) Twice A Day Discontinued Isosorbide Mononitrate (Imdur-Er 30 Mg*) 30 Mg Tabcr, 60 Mg Oral Daily Discontinued Levofloxacin (Levaquin 750 Mg Tab*) 750 Mg Tablet, 750 Mg Oral Daily Discontinued Levofloxacin (Levaquin 750 Mg Tab*) 750 Mg Tablet, 750 Mg Oral Daily Discontinued Levothyroxine Sodium (Synthroid 150 Mcg Tab*) 150 Mcg Tablet, 150 Mcg Oral Daily Discontinued Levothyroxine Sodium (Synthroid 150 Mcg Tab*) 150 Mcg Tablet, 150 Mcg Oral Daily Discontinued Lidocaine Oint 5% , 1 Topical Four Times Daily Prn Pain Discontinued Lidocaine Ointment , Four Times Daily As Needed Discontinued Loperamide Hcl (Imodium A-D) 2 Mg Capsule, As Needed Discontinued Loperamide Hcl 1 Mg/5 Ml Liquid, 1 Mg Oral Every 6 To 8 Hours As Needed as needed for Diarrhea Discontinued Loperamide Hcl (Imodium*) 2 Mg Capsule, 2 Mg Oral Discontinued Lorazepam (Ativan 0.5 Mg Tab*) 0.5 Mg Tablet, 0.5 Mg Oral Twice A Day as needed for Anxiety Discontinued Lorazepam (Ativan 0.5 Mg Tab*) 0.5 Mg Tablet, 0.5 Mg Oral Two Times Daily As Needed Discontinued Lorazepam (Ativan 0.5 Mg Tab*) 0.5 Mg Tablet, 0.5 Mg Oral Every 6 Hours As Needed Discontinued Lorazepam (Ativan 0.5 Mg Tab*) 0.5 Mg Tablet, 0.5 Mg Oral As Needed for Anxiety Discontinued Magnesium Hydroxide (Milk Of Magnesia 400MG/5ML*) 400 Mg/5 Ml Oral.susp, 30 Ml Oral Daily as needed for Constipation Discontinued Magnesium Hydroxide (Milk Of Magnesia 400MG/5ML*) 400 Mg/5 Ml Oral.susp, 30 Ml Oral As Needed Discontinued Meloxicam (Mobic 7.6 Mg Tab*) 7.5 Mg Tablet, 7.5 Mg Oral Twice A Day Discontinued Methylprednisolone (Medrol Dose Pack 4 Mg*) 4 Mg Dspk, 4 Mg Oral As Directed 02/22/17 Discontinued Montelukast Sodium (Singulair 10 Mg Tab*) 10 Mg Tablet, 10 Mg Oral Daily Discontinued Mupirocin (Bactroban 2% Oint*) 22 Gm Oint, 22 Gm Extracorporeal Daily Discontinued Naphazoline Hcl/Pheniramine (Allergy Eye Drops) 15 Ml Drops, 2 Drop Ophthalmic Four Times Daily as needed for Allergy Symptoms Discontinued Nasal Irrigation , As Needed Discontinued Nebulizer , Inhalation As Needed Discontinued Nebulizer , Inhalation Four Times Daily Discontinued Nicotine Patch , 1 Patch Topical Daily Discontinued Nitroglycerin (Nitrostat*) 0.4 Mg Tab.subl, 0.4 Mg Sublingual as needed for Chest Pain Discontinued Nitroglycerin (Nitrostat) 0.3 Mg Tab.subl, 1 Tab Sublingual Once as needed for Chest Pain Discontinued Nitroglycerin (Nitrostat*) 0.4 Mg Tab.subl, 0.4 Mg Sublingual As Needed for Chest Pain Discontinued Nitroglycerin (Nitrostat*) 0.4 Mg Tab.subl, 0.4 Mg Sublingual As Needed Discontinued Normal Saline (Normal Saline Flush) 5 Ml Disp.syrin, 5 Ml Intravenous Two Times Daily As Needed Discontinued Nystatin (Nystatin Cream*) 15 Gm Cr, 15 Gm Extracorporeal Three Times A Day Discontinued Nystatin Powder , Unknown Dose Topical Twice A Day Discontinued Nystatin Powder , Unknown Dose Topical As Needed Discontinued O2 , 2 L Nasal At Bedtime As Needed Discontinued Omeprazole (Prilosec 20 Mg Cap*) 20 Mg Capsule.dr, 20 Mg Oral Twice A Day Discontinued Omeprazole (Prilosec 20 Mg Cap*) 20 Mg Capsule.dr, 20 Mg Oral Twice A Day Discontinued Omeprazole Magnesium 20 Mg Capsule.dr, 20 Mg Oral Twice A Day Discontinued Omeprazole/Sodium Bicarbonate (Omeprazole-Bicarb 20-1,680 Pkt) 1 Each Packet, Discontinued Orphenadrine Citrate (Norflex) 100 Mg Tablet.sa, 100 Mg Oral Twice A Day 08/11 Discontinued Oseltamivir Phosphate (Tamiflu 75MG) 75 Mg Capsule, 75 Mg Oral Twice A Day Discontinued Oxycodone Hcl/Acetaminophen (Percocet 7.5-325 Mg Tablet) 1 Tab Tablet, 1 Tab Oral Every 4-6 Hrs As Needed Pain 02/22/17 Discontinued Phenol (Chloraseptic*) 177 Ml [place].pump, 1 [place] Oral Every 2 Hours As Needed Discontinued Phenol (Chloraseptic) 20 Ml [place], 20 Ml Oropharyngeal as needed for Throat Pain Discontinued Phenol/Glycerin (Chloraseptic Max [place]) 30 Ml [place], 5 [place] Nasal As Needed Discontinued Potassium Chloride (K-Dur 10 Meq*) 10 Meq Tab.prt.sr, 10 Meq Oral Daily Discontinued Potassium Chloride (Micro-K 10 Extencaps*) 10 Meq Tab, 10 Meq Oral Daily Discontinued Potassium Chloride (Micro-K 10 Extencaps*) 10 Meq Tab, 10 Meq Oral Daily Discontinued Prazosin Hcl (Minipress*) 2 Mg Capsule, 1 Mg Oral Bedtime Discontinued Prednisone (Prednisone 10 Mg Tab*) 10 Mg Tablet, 50 Mg Oral Daily 01/12/18 Discontinued Prednisone (Prednisone 20 Mg Tab*) 20 Mg Tablet, 40 Mg Oral Daily 01/04/17 Discontinued Prednisone (Prednisone 20 Mg Tab*) 20 Mg Tablet, 60 Mg Oral Daily 02/05/17 Discontinued Prednisone (Prednisone 50 Mg Tab) 50 Mg Tablet, 50 Mg Oral Daily Discontinued Prednisone (Prednisone 10 Mg Tab*) 10 Mg Tablet, 50 Mg Oral Daily 06/21/15 Discontinued Promethazine Hcl (Phenergan*) 25 Mg Tablet, 25 Mg Topical Every 4-6 Hours as needed for Nausea/Vomiting Discontinued Replens Vag Gel , 3 Times A Week Discontinued Robitussin Dm , 10 Ml Oral Every 4 Hours As Needed Discontinued Salmeterol Xinafoate/Fluticasone (Advair 250-50 Diskus*) 1 Each Disk.w.dev, 1 Puff Inhalation Twice A Day 09/26/16 Discontinued Salon Pas/Lidocaine , 1 Patch Not Applicable Daily Discontinued Spironolactone (Aldactone*) 25 Mg Tablet, 25 Mg Oral Every Three Days Discontinued Spironolactone (Aldactone*) 25 Mg Tablet, 25 Mg Oral Every Other Day Discontinued Sucralfate (Carafate*) 1 G Tablet, 1 Gm Oral Four Times Daily Discontinued Topiramate (Topamax 100 Mg Tab*) 100 Mg Tablet, 100 Mg Oral Twice A Day Discontinued Topiramate (Topamax 100 Mg Tab*) 100 Mg Tablet, 100 Mg Oral Twice A Day Discontinued Topiramate (Topamax 100 Mg Tab*) 100 Mg Tablet, 100 Mg Oral Twice A Day Discontinued Tramadol Hcl (Ultram 50 Mg Tab*) 50 Mg Tablet, 50 Mg Oral Four Times Daily Discontinued Tramadol Hcl (Ultram 50 Mg Tab*) 50 Mg Tablet, 50 Mg Oral Every 6 Hours as needed for Pain Discontinued Tramadol Hcl (Ultram 50 Mg Tab*) 50 Mg Tablet, 50 Mg Oral Every 8 Hours As Needed Pain Discontinued Trazodone Hcl (Desyrel*) 100 Mg Tablet, 25 Mg Oral Bedtime as needed for Insomnia Discontinued Trazodone Hcl , 25 Mg Oral Daily Discontinued Trazodone Hcl (Desyrel*) 150 Mg Tablet, 150 Mg Oral Bedtime Discontinued Trazodone Hcl (Desyrel*) 150 Mg Tablet, 150 Mg Oral Bedtime Discontinued Trolamine Salicylate (Aspercreme*) 90 Gm Tube, 90 Gm Topical 2-3 Times Daily Discontinued Tylenol Arthritis , 650 Mg Oral Twice A Day Discontinued Dalia Boots , Discontinued Vancomycin Hcl 100 Gm Bulkbaginj, 160 Mg Nasal Twice A Day Discontinued Vancomycin Hcl 100 Gm Bulkbaginj, 200 Mg Inhalation Twice A Day Discontinued Warfarin , 11 Mg Oral Daily Discontinued Warfarin Sodium (Coumadin 10 Mg Tab*) 10 Mg Tablet, 10 Mg Oral Daily Discontinued Warfarin Sodium (Coumadin 7.5 Mg Tab*) 7.5 Mg Tablet, 7.5 Mg Oral Twice A Week Discontinued Warfarin Sodium (Coumadin 7.5 Mg Tab*) 7.5 Mg Tablet, 15 Mg Oral Daily Discontinued Warfarin Sodium (Coumadin 7.5 Mg Tab*) 7.5 Mg Tablet, 7.5 Mg Oral Bedtime Discontinued Warfarin Sodium (Coumadin 7.5 Mg Tab*) 7.5 Mg Tablet, 15 Mg Oral Daily Discontinued Warfarin Sodium (Coumadin 6 Mg Tab*) 6 Mg Tablet, 6 Mg Oral Even Days Discontinued Warfarin Sodium (Coumadin 7.5 Mg Tab*) 7.5 Mg Tablet, 7.5 Mg Oral Odd Days Discontinued Warfarin Sodium (Coumadin 6 Mg Tab*) 6 Mg Tablet, 12 Mg Oral Every Other Day Discontinued Warfarin Sodium (Coumadin 7.5 Mg Tab*) 7.5 Mg Tablet, 7.5 Mg Oral Every Other Day Discontinued Social History Social History Problem Response Recorded Date/Time Onset Date Status Smoking Status Current every day smoker 06/30/2017 4:22am Not Applicable Not Applicable Tobacco Use Cigarettes 05/02/2016 3:40pm Not Applicable Not Applicable Smoking Status Start Date Stop Date Current every day smoker Hospital Discharge Instructions No hospital discharge instruction information available. Plan of Care Discharge Date 01/27/18 4:10am Condition at Discharge Stable Instructions/Education Provided Help Prevent Suicide (ED) Prescriptions See Medication Section Additional Instructions/Education Transfer to [facility] Functional Status Query Response Date Recorded [place] Coma Scale Total 15 January 26, 2018 9:12pm Patient Behavior Cooperative January 26, 2018 9:12pm Allergies, Adverse Reactions, Alerts Allergen Type Severity Reaction Status Last Updated IODINE Allergy Unknown Active 12/30/17 Penicillin Allergy Unknown Active 12/30/17 Tetracyclines Allergy Unknown Active 12/30/17 SULFA (SULFONAMIDE ANTIBIOTICS) Allergy Unknown Active 12/30/17 Iodine Allergy Unknown Active 12/30/17 Morphine Allergy Unknown Active 12/30/17 Codeine Allergy Unknown Active 12/30/17 Oxycodone Allergy Unknown Active 12/30/17 Propoxyphene Allergy Unknown Active 12/30/17 Aspirin Allergy Unknown Active 12/30/17 Cephalexin Allergy Unknown Active 12/30/17 Erythromycin base Allergy Unknown Active 12/30/17 Diphenhydramine Allergy Unknown Active 12/30/17 Ketorolac Allergy Unknown Active 12/30/17 Banana Allergy Unknown Active 12/30/17 Fish Allergy Unknown Active 12/30/17 Mushrooms Allergy Unknown Active 12/30/17 Immunizations Query Response on File Recorded Date/Time Hx Diphtheria, Pertussis, Tetanus Vaccination Unknown 01/26/18 9:12pm Hx Influenza Vaccination No 01/26/18 9:12pm Hx Pneumococcal Vaccination Yes 01/26/18 9:12pm Hx Tetanus, Diphtheria Vaccination No 01/12/18 6:31pm Hx Tetanus Toxoid Vaccination Yes 09/22/16 8:27pm Vital Signs Acute Vital Signs Vital Response Date/Time Temperature (Fahrenheit) 97.9 degrees F (97.6 - 99.5) 01/26/2018 9:12pm Temperature Source Temporal Artery 01/26/2018 9:12pm Pulse Rate (adult) 76 bpm (60 - 90) 01/27/2018 4:00am Respiratory Rate 18 bpm (12 - 24) 01/27/2018 4:00am Blood Pressure 148/72 mm Hg 01/27/2018 4:00am O2 Sat by Pulse Oximetry 93 % (90 - 100) 01/27/2018 4:00am Oxygen Delivery Method Room Air 01/27/2018 4:00am Oxygen Flow Rate 2.0 L/min 01/27/2018 1:26am Pain Intensity 8 01/25/2018 8:53pm Pain Location Body Site Modifier Left 01/25/2018 8:55pm Pain Description Aching 01/25/2018 8:55pm Pain Duration Less than 15 minutes 01/25/2018 8:53pm Height 5 ft 5 in 01/26/2018 9:12pm Weight 274.26 lb 01/26/2018 9:12pm Body Mass Index 45.0 kg/m^2 01/26/2018 9:12pm Results Laboratory Results Test Name Result Units Flags Reference Collection Date/Time Result Date/ Time Comments Stool for White Cells POSITIVE 12/30/2017 11:36am 12/30/2017 12: 46pm 3-4 WBCs / HPF Stl C. difficile DNA Amplification NEGATIVE NEGATIVE 12/30/2017 11: 36am 12/30/2017 1:57pm White Blood Count 12.9 K/uL H 4.8-10.8 01/24/2018 1:48am 01/24/2018 2: 06am Red Blood Count 4.85 M/uL 4.20-5.40 01/24/2018 1:48am 01/24/2018 2: 06am Hemoglobin 12.1 gm/dL 12.0-16.0 01/24/2018 1:48am 01/24/2018 2:06am Hematocrit 40.1 % 37.0-47.0 01/24/2018 1:48am 01/24/2018 2:06am Mean Corpuscular Volume 82.8 fL 81.0-99.0 01/24/2018 1:48am 01/24/2018 2:06am Mean Corpuscular Hemoglobin 24.9 pg L 27.0-31.0 01/24/2018 1:48am 2017 2:06am Mean Corpuscular Hemoglobin Concent 30.1 g/dL 30.0-37.0 01/24/2018 1: 48am 01/24/2018 2:06am Red Cell Distribution Width 17.3 % H 11.5-14.5 01/24/2018 1:48am 2017 2:06am Platelet Count 266 K/uL 130-400 01/24/2018 1:48am 01/24/2018 2:06am Mean Platelet Volume 8.1 fL 7.4-10.4 01/24/2018 1:48am 01/24/2018 2: 06am Neutrophils (%) (Auto) 70.2 % 42.2-75.2 01/24/2018 1:48am 01/24/2018 2: 06am Lymphocytes (%) (Auto) 21.7 % 20.5-51.1 01/24/2018 1:48am 01/24/2018 2: 06am Monocytes (%) (Auto) 6.2 % 0-10 01/24/2018 1:48am 01/24/2018 2:06am Eosinophils (%) (Auto) 1.3 % 0-3 01/24/2018 1:48am 01/24/2018 2:06am Basophils (%) (Auto) 0.6 % 0.0-1.0 01/24/2018 1:48am 01/24/2018 2:06am Neutrophils # (Auto) 9.1 K/uL H 2.0-6.9 01/24/2018 1:48am 01/24/2018 2: 06am Lymphocytes # (Auto) 2.8 K/uL 1.2-3.4 01/24/2018 1:48am 01/24/2018 2: 06am Monocytes # (Auto) 0.8 K/uL H 0.1-0.6 01/24/2018 1:48am 01/24/2018 2: 06am Eosinophils # (Auto) 0.2 K/uL 0.0-0.7 01/24/2018 1:48am 01/24/2018 2: 06am Basophils # (Auto) 0.1 K/uL 0.0-0.2 01/24/2018 1:48am 01/24/2018 2: 06am Random Glucose 131 mg/dL H 70-110 01/24/2018 1:48am 01/24/2018 2:13am Blood Urea Nitrogen 10 mg/dL 7-18 01/24/2018 1:48am 01/24/2018 2:13am Creatinine 0.8 mg/dL 0.55-1.02 01/24/2018 1:48am 01/24/2018 2:13am Glomerular Filtration Rate Calc 72.9 mL/min 01/24/2018 1:48am 2017 2:13am Sodium Level 141 mEq/L 136-145 01/24/2018 1:48am 01/24/2018 2:13am Potassium Level 3.4 mEq/L L 3.5-5.0 01/24/2018 1:48am 01/24/2018 2:13am Chloride Level 106 mEq/L 98-107 01/24/2018 1:48am 01/24/2018 2:13am Carbon Dioxide Level 27.6 mEq/L 21-32 01/24/2018 1:48am 01/24/2018 2: 13am Calcium Level 8.6 mg/dL L 8.8-10.5 01/24/2018 1:48am 01/24/2018 2:13am Total Protein 7.3 gm/dL 6.4-8.2 01/24/2018 1:48am 01/24/2018 2:26am Albumin 2.7 gm/dL L 3.4-5.0 01/24/2018 1:48am 01/24/2018 2:26am Total Bilirubin 0.57 mg/dL 0.00-1.00 01/24/2018 1:48am 01/24/2018 2: 26am Aspartate Amino Transf (AST/SGOT) 5 U/L L 15-37 01/24/2018 1:48am 2017 2:26am Alanine Aminotransferase (ALT/SGPT) 16 U/L 12-78 01/24/2018 1:48am 08/2017 2:26am Total Alkaline Phosphatase 130 U/L H 46-116 01/24/2018 1:48am 2017 2:26am Total Creatine Kinase 24 U/L L 26-192 01/24/2018 1:48am 01/24/2018 2: 26am B-Type Natriuretic Peptide 47 pg/mL 10-227 01/24/2018 1:48am 2017 2:26am 50-75 years of age NT-proBNP values <300 pg/mL have a 99% negative predictive value for excluding acute congestive heart failure (CHF). A cutoff of 1,200 pg/mL for patients with an eGFR <60 yields a diagnostic sensitivity and specificity of 89% and 72% for acute CHF. NT-proBNP values 900 pg/mL are consistent with CHF in adults 50-75 years of age in the absence of renal failure. Creatine Kinase MB < 0.5 ng/mL 0-3.6 01/24/2018 1:48am 01/24/2018 2: 26am Myoglobin 27.0 NG/ML 10.5-92.5 01/24/2018 1:48am 01/24/2018 2:26am Troponin I < 0.02 ng/mL 0.0-0.2 01/24/2018 1:48am 01/24/2018 2:26am Tricyclic Antidepressants NEGATIVE 01/27/2018 2:50am 01/27/2018 3: 12am Phencyclidine (PCP) Screen NEGATIVE NEGATIVE 01/27/2018 2:50am 2017 3:12am Urine Barbiturates Screen NEGATIVE NEGATIVE 01/27/2018 2:50am 2017 3:12am Urine Marijuana (THC) Screen NEGATIVE NEGATIVE 01/27/2018 2:50am 11/2017 3:12am Urine Opiates Screen NEGATIVE NEGATIVE 01/27/2018 2:50am 01/27/2018 3 :12am Urine Cocaine Level NEGATIVE NEGATIVE 01/27/2018 2:50am 01/27/2018 3: 12am Urine Amphetamines Screen NEGATIVE NEGATIVE 01/27/2018 2:50am 2017 3:12am Urine Methamphetamines Screen NEGATIVE NEGATIVE 01/27/2018 2:50am 11/2017 3:12am Urine Benzodiazepines Screen NEGATIVE NEGATIVE 01/27/2018 2:50am 11/2017 3:12am Urine MDMA Screen (Ecstasy) NEGATIVE NEGATIVE 01/27/2018 2:50am 01/27 3:12am Urine Oxycodone Screen NEGATIVE NEGATIVE 01/27/2018 2:50am 2017 3:12am Urine Methadone Screen NEGATIVE NEGATIVE 01/27/2018 2:50am 2017 3:12am Urine Color YELLOW YELLOW 01/27/2018 2:50am 01/27/2018 3:17am Urine Appearance CLEAR CLEAR 01/27/2018 2:50am 01/27/2018 3:17am Urine Glucose (UA) NEGATIVE mg/dL NEGATIVE 01/27/2018 2:50am 2017 3:17am Urine Bilirubin NEGATIVE NEGATIVE 01/27/2018 2:50am 01/27/2018 3: 17am Urine Ketones NEGATIVE mg/dL NEGATIVE 01/27/2018 2:50am 01/27/2018 3: 17am Urine Specific [place] 1.020 1.010-1.025 01/27/2018 2:50am 2017 3:17am Urine Occult Blood NEGATIVE NEGATIVE 01/27/2018 2:50am 01/27/2018 3: 17am Urine pH 6.5 5.0-8.0 01/27/2018 2:50am 01/27/2018 3:17am Urine Protein NEGATIVE mg/dL NEGATIVE 01/27/2018 2:50am 01/27/2018 3: 17am Urine Urobilinogen 0.2 mg/dL E.U./dL 0.2-1.0 01/27/2018 2:50am 2017 3:17am Urine Nitrate NEGATIVE NEGATIVE 01/27/2018 2:50am 01/27/2018 3:17am Urine Leukocyte Esterase NEGATIVE NEGATIVE 01/27/2018 2:50am 2017 3:17am Urine RBC NEGATIVE /hpf 0 01/27/2018 2:50am 01/27/2018 3:21am Urine WBC NEGATIVE /hpf 0-4 01/27/2018 2:50am 01/27/2018 3:21am Urine Squamous Epithelial Cells 0-1 /hpf 0-1 01/27/2018 2:50am 2017 3:21am Urine Bacteria NEGATIVE NEGATIVE 01/27/2018 2:50am 01/27/2018 3:21am Procedures Procedure Status Date Provider(s) ROUTINE VENIPUNCTURE Completed 12/01/17 X-RAY EXAM CHEST 1 VIEW Completed 12/01/17 COMPREHEN METABOLIC PANEL Completed 12/01/17 ASSAY OF CK (CPK) Completed 12/01/17 ASSAY OF CPK IN BLOOD Completed 12/01/17 ASSAY OF MYOGLOBIN Completed 12/01/17 ASSAY OF NATRIURETIC PEPTIDE Completed 12/01/17 ASSAY OF TROPONIN QUANT Completed 12/01/17 COMPLETE CBC AUTOMATED Completed 12/01/17 ELECTROCARDIOGRAM TRACING Completed 12/01/17 RHYTHM ECG WITH REPORT Completed 12/01/17 EMERGENCY DEPT VISIT Completed 12/01/17 GROUND MILEAGE Completed 12/01/17 ALS1-EMERGENCY Completed 12/01/17 FECES CULTURE AEROBIC BACT Completed 12/26/17 CLOSTRIDIUM AG IA Completed 12/26/17 SHIGA-LIKE TOXIN AG IA Completed 12/26/17 X-RAY EXAM CHEST 1 VIEW Completed 12/28/17 COMPREHEN METABOLIC PANEL Completed 12/28/17 ASSAY OF CPK IN BLOOD Completed 12/28/17 ASSAY OF MYOGLOBIN Completed 12/28/17 ASSAY OF TROPONIN QUANT Completed 12/28/17 COMPLETE CBC AUTOMATED Completed 12/28/17 ELECTROCARDIOGRAM TRACING Completed 12/28/17 EMERGENCY DEPT VISIT Completed 12/28/17 AMBULANCE 02 LIFE SUSTAINING Completed 12/28/17 GROUND MILEAGE Completed 12/28/17 BLS-EMERGENCY Completed 12/28/17 X-RAY EXAM CHEST 1 VIEW Completed 12/30/17 COMPREHEN METABOLIC PANEL Completed 12/30/17 COMPLETE CBC AUTOMATED Completed 12/30/17 FECES CULTURE AEROBIC BACT Completed 12/30/17 CLOSTRIDIUM AG IA Completed 12/30/17 SHIGA-LIKE TOXIN AG IA Completed 12/30/17 LEUKOCYTE ASSESSMENT FECAL Completed 12/30/17 HYDRATE IV INFUSION ADD-ON Completed 12/30/17 THER/PROPH/DIAG INJ IV PUSH Completed 12/30/17 EMERGENCY DEPT VISIT Completed 12/30/17 NORMAL SALINE SOLUTION INFUS Completed 12/30/17 X-RAY EXAM CHEST 1 VIEW Completed 01/12/18 COMPREHEN METABOLIC PANEL Completed 01/12/18 ASSAY OF CK (CPK) Completed 01/12/18 ASSAY OF CPK IN BLOOD Completed 01/12/18 ASSAY OF MYOGLOBIN Completed 01/12/18 ASSAY OF NATRIURETIC PEPTIDE Completed 01/12/18 ASSAY OF TROPONIN QUANT Completed 01/12/18 COMPLETE CBC AUTOMATED Completed 01/12/18 ELECTROCARDIOGRAM TRACING Completed 01/12/18 RHYTHM ECG WITH REPORT Completed 01/12/18 AIRWAY INHALATION TREATMENT Completed 01/12/18 THER/PROPH/DIAG INJ IV PUSH Completed 01/12/18 TX/PRO/DX INJ NEW DRUG ADDON Completed 01/12/18 EMERGENCY DEPT VISIT Completed 01/12/18 ALS DEFIBRILLATION SUPPLIES Completed 01/12/18 AMBULANCE 02 LIFE SUSTAINING Completed 01/12/18 GROUND MILEAGE Completed 01/12/18 ALS1-EMERGENCY Completed 01/12/18 FENTANYL CITRATE INJECITON Completed 01/12/18 ALBUTEROL IPRATROP NON-COMP Completed 01/12/18 Portable x-ray of chest Completed 12/01/17 CARMELINA CHRISTINE DO Portable x-ray of chest Completed 12/28/17 YAMILKA LOWE MD Portable x-ray of chest Completed 12/30/17 TRE WREN DO Portable x-ray of chest Completed 01/12/18 ALMAZ HAWLEY DO Portable x-ray of chest Completed 01/24/18 CARMELINA CHRISTINE DO X-ray of left knee, four or more views Completed 01/25/18 CALIXTO GIBBONS MD X-ray of pelvis, one or two views including anteroposterior view Completed CALIXTO GIBBONS MD Encounters Encounter Location Arrival/Admit Date Discharge/Depart Date Attending Provider Departed Emergency Room [facility] 01/26/18 9:12pm 01/27/18 4:10am MARTY DUNN MD Departed Emergency Room [facility] 01/25/18 8:36pm 01/25/18 10:50pm CALIXTO GIBBONS MD Departed Emergency Room [facility] 01/24/18 1:28am 01/24/18 4:15am CARMELINA CHRISTINE DO Departed Emergency Room [facility] 01/21/18 1:49am 01/21/18 3:22am LATASHA GONZALEZ D.O. Departed Emergency Room [facility] 01/12/18 6:30pm 01/12/18 7:55pm CARMELINA CHRISTINE DO Departed Emergency Room [facility] 12/30/17 10:14am 12/30/17 3:16pm TRE WREN DO Departed Emergency Room [facility] 12/28/17 9:25pm 12/28/17 11:55pm YAMILKA LOWE MD Registered Referred [facility] 12/26/17 10:53am ESTEPHANIE MACHADO MD Departed Emergency Room [facility] 12/01/17 8:05pm 12/01/17 9:25pm CARMELINA CHRISTINE DO Recent Diagnosis
--- OUTSIDE RECORDS SUMMARY | 2018-07-10 18:50 | XMS REPORT | Continuity of Care Document ---
Author Author [facility] Organization [facility] Address [facility] [address] [place] [address] Phone Unavailable Support Name Relationship Address Phone LATASHA GONZALEZ D.O. Caregiver [address] [place] [address] ESTEPHANIE MACHADO MD Caregiver [address] [place] [address] HAILY EM DO Caregiver [address] [place] [address] SHMUEL FRANCOIS Next Of Kin [address] [place] [address] Insurance Providers Payer Name Policy Number Subscriber Name Relationship Medicare [id number] Misa Lund 18 Self / Same As Patient [facility] [id number] Misa Lund 18 Self / Same As Patient Advance Directives Directive Response Recorded Date/Time Do you have an Advanced Directive? No 07/10/15 10:01pm Advance Directives No 11/16/16 3:46pm Living Will No 11/16/16 3:46pm Health Care Proxy No 03/06/17 8:16pm Power of Employee Communications Intern for Health Care No 11/16/16 3:46pm Organ, Tissue, or Eye Donor No 09/22/16 10:40pm Do you have a signed organ donor card? No 12/08/15 9:31pm Chief Complaint and Reason for Visit Chief Complaint LOW BACK PAIN/INJURY Reason for Visit Chest wall pain [id number] Hypertension Problems Active Problems Medical Problem Onset Date Status Acute exacerbation of chronic obstructive pulmonary disease (COPD) Unknown Acute Acute left lumbar radiculopathy Unknown Acute Bipolar 1 disorder Unknown Acute Bronchospasm Unknown Acute COPD (chronic obstructive pulmonary disease) Unknown Acute Chest pain Unknown Acute Chest wall pain Unknown Acute Chronic pain disorder Unknown Acute Dyspnea Unknown Acute Fall Unknown Acute GERD (gastroesophageal reflux disease) Unknown Acute Hypertension Unknown Acute Knee pain, right Unknown Acute Lumbar strain Unknown Acute Morbid obesity Unknown Acute Obesity (BMI 35.0-39.9 without comorbidity) Unknown Acute Medications Current Home Medications Medication Dose Units Route Directions Days/Qty Instructions Start Date Aripiprazole 10 Mg 10 Mg Oral Bedtime 30 06/25/15 Duloxetine Hcl 30 Mg 30 Mg Oral Bedtime 30 06/25/15 Duloxetine Hcl 60 Mg 60 Mg Oral Daily Am 30 07/23/15 Carbamazepine 200 Mg 200 Mg Oral Twice A Day 60 07/23/15 Acidophilus/Pectin, Hand 1 Each 1 Tab Oral Daily 07/23/15 Acetaminophen 500 Mg 1,000 Mg Oral Every 4 Hours As Needed 05/02/16 Amlodipine Besylate 5 Mg 5 Mg Oral Bedtime 30 09/22/16 Spironolactone 25 Mg 25 Mg Oral Every Three Days 09/22/16 Levothyroxine Sodium 200 Mcg 200 Mcg Oral Before Breakfast 30 09/22/16 Isosorbide Mononitrate 30 Mg 60 Mg Oral Bedtime 11/16/16 [Atrovent Estefania 0.0.6%] 2 [place] Nasal Twice A Day 11/16/16 Buspirone Hcl [...] Mg 7.5 Mg Oral Twice A Week 01/04/17 Warfarin Sodium 7.5 Mg 15 Mg Oral Daily 01/04/17 Trazodone Hcl 100 Mg 25 Mg [...] Of Breath 1 INHALE 2 PUFFS 02/05/17 Methylprednisolone 4 Mg 4 Mg Oral As Directed 02/22/17 Oxycodone Hcl/Acetaminophen 1 Tab 1 Tab Oral Every 4-6 Hrs As Needed Pain 30 02/22/17 Cyclobenzaprine Hcl (Flexeril*) 10 Mg 10 Mg Oral Twice A Day Orphenadrine Citrate 100 Mg 100 Mg Oral Twice A Day 03/06/17 Past Home Medications Medication Directions Ordered Status [...] Oral Every Other Day 09/22/16 Discontinued Ipratropium [place] 0.5 Mg/2.5 Ml Nebu, 0.5-2.5 Mg Inhalation Twice A Day Discontinued Topiramate 100 Mg Tablet, 100 Mg Oral Twice A Day 09/22/16 Discontinued Sucralfate 1 G Tablet, 1 Gm Oral Four Times Daily 09/22/16 Discontinued Phenol/Glycerin 30 Ml [place], 5 [place] Nasal As Needed 09/22/16 Discontinued Hydroxyzine Hcl [...] 11/20/2016 7:33am Tobacco Use Cigarettes 05/02/2016 3:40pm Drug Use none 03/06/2017 8:26pm Employment Retired 03/06/2017 8:26pm Query Response Start Date Stop Date Smoking Status Current every day smoker Hospital Discharge Instructions No hospital discharge instructions. Plan of Care Discharge Date 03/06/17 8:45pm Condition at Discharge Improved Instructions/Education Provided Chronic Hypertension (ED) Muscle Spasm (ED) Prescriptions See Medication Section Referrals ESTEPHANIE MACHADO MD - Additional Instructions/Education Take medication twice daily for the next several days. Follow up with your doctor if pain persists. Be sure to talk with your doctor about your blood pressure as it was elevated today. Functional Status Query Response Date Recorded Aris Coma Scale Total 15 March 06, 2017 7:29pm Patient Behavior Cooperative March 06, 2017 7:18pm Allergies, Adverse Reactions, Alerts Allergen Type Severity Reaction Status Last Updated IODINE Allergy Unknown Active 02/19/17 Penicillin Allergy Unknown Active 02/19/17 Cephalosporins Allergy Unknown Active 02/28/17 Tetracyclines Allergy Unknown Active 02/19/17 SULFA (SULFONAMIDE ANTIBIOTICS) Allergy Unknown Active 02/19/17 Morphine Allergy Unknown Active 02/19/17 Codeine Allergy Unknown Active 02/28/17 Propoxyphene Allergy Unknown Active 02/19/17 Aspirin Allergy Unknown Active 02/28/17 Erythromycin base Allergy Unknown Active 02/19/17 Diphenhydramine Allergy Unknown Active 02/19/17 Ketorolac Allergy Unknown Active 02/19/17 Banana Allergy Unknown Active 02/28/17 Fish Allergy Unknown Active 02/19/17 Mushrooms Allergy Unknown Active 02/19/17 Immunizations Name Given Type Hx Diphtheria, Pertussis, Tetanus Vaccination Not Up To Date Historical Hx Influenza Vaccination No Historical Hx Pneumococcal Vaccination Yes Historical Hx Tetanus, Diphtheria Vaccination Yes Historical Hx Tetanus Toxoid Vaccination Yes Historical Vital Signs Acute Vital Signs Vital Response Date/Time Temperature (Fahrenheit) 99.0 degrees F (97.6 - 99.5) 03/06/2017 8:30pm Temperature Source Temporal Artery 03/06/2017 8:30pm Pulse Rate (adult) 80 bpm (60 - 90) 03/06/2017 8:30pm Respiratory Rate 18 bpm (12 - 24) 03/06/2017 8:30pm Blood Pressure 140/70 mm Hg 03/06/2017 8:30pm O2 Sat by Pulse Oximetry 95 % (90 - 100) 03/06/2017 8:30pm Oxygen Delivery Method 03/06/2017 8:30pm Oxygen Flow Rate 2 L/min 02/19/2017 12:40am Pain Intensity 0 03/06/2017 7:44pm Pain Location Body Site Modifier 03/04/2017 4:31pm Pain Description 03/04/2017 4:31pm Pain Duration 15-30 Minutes 02/07/2017 11:42pm Height 5 ft 3 in Weight 330 lb Body Mass Index 58.0 kg/m^2 Results Pending Laboratory Results Test Name Collection Date/Time Microbiology Results Procedure Source Result Collection Date/Time Result Date/Time Eye/Ear/Nose/Throat Culture Eye, Right STAPHYLOCOCCUS AUREUS 12/07/2016 12: 00pm 12/10/2016 9:34am Procedures Procedure Status Date Provider(s) CULTURE OTHR SPECIMN AEROBIC Completed 12/07/16 CULTURE [...] Completed 02/05/17 ALBUTEROL IPRATROP NON-COMP Completed 02/05/17 ROUTINE VENIPUNCTURE Completed 02/07/17 CHEST X-RAY 1 VIEW FRONTAL Completed 02/07/17 METABOLIC PANEL TOTAL CA Completed 02/07/17 ASSAY OF TROPONIN QUANT Completed 02/07/17 COMPLETE CBC AUTOMATED Completed 02/07/17 FIBRIN DEGRADATION QUANT Completed 02/07/17 PROTHROMBIN TIME Completed 02/07/17 ELECTROCARDIOGRAM TRACING Completed 02/07/17 EMERGENCY DEPT VISIT Completed 02/07/17 GROUND MILEAGE Completed 02/07/17 BLS-EMERGENCY Completed 02/07/17 EMERGENCY DEPT VISIT Completed 02/11/17 GROUND MILEAGE Completed 02/11/17 BLS-EMERGENCY Completed 02/11/17 CHEST X-RAY 1 VIEW FRONTAL Completed 02/19/17 COMPREHEN METABOLIC PANEL Completed 02/19/17 ASSAY OF CK (CPK) Completed 02/19/17 ASSAY OF CPK IN BLOOD Completed 02/19/17 ASSAY OF MYOGLOBIN Completed 02/19/17 ASSAY OF TROPONIN QUANT Completed 02/19/17 COMPLETE CBC AUTOMATED Completed 02/19/17 ELECTROCARDIOGRAM TRACING Completed 02/19/17 RHYTHM ECG WITH REPORT Completed 02/19/17 EMERGENCY DEPT VISIT Completed 02/19/17 ALS DEFIBRILLATION SUPPLIES Completed 02/19/17 GROUND MILEAGE Completed 02/19/17 ALS1-EMERGENCY Completed 02/19/17 FENTANYL CITRATE INJECITON Completed 02/19/17 PROTHROMBIN TIME Completed 02/22/17 EMERGENCY DEPT VISIT Completed 02/22/17 CHEST X-RAY 2VW FRONTAL&LATL Completed 02/22/17 COMPREHEN METABOLIC PANEL Completed 02/22/17 ASSAY OF CPK IN BLOOD Completed 02/22/17 ASSAY OF MYOGLOBIN Completed 02/22/17 ASSAY OF TROPONIN QUANT Completed 02/22/17 COMPLETE CBC AUTOMATED Completed 02/22/17 ELECTROCARDIOGRAM TRACING Completed 02/22/17 RHYTHM ECG WITH REPORT Completed 02/22/17 EMERGENCY DEPT VISIT Completed 02/22/17 ALS DEFIBRILLATION SUPPLIES Completed 02/22/17 ALS ROUTINE DISPOSABLE SUPPLS Completed 02/22/17 GROUND MILEAGE Completed 02/22/17 ALS1-EMERGENCY Completed 02/22/17 AMBULANCE RESPONSE/TREATMENT Completed 02/28/17 THERPROPHDIAG INJ SCIM Completed 02/28/17 EMERGENCY DEPT VISIT Completed 02/28/17 FENTANYL CITRATE INJECITON Completed 02/28/17 EMERGENCY DEPT VISIT Completed 03/04/17 GROUND MILEAGE Completed 03/04/17 BLS-EMERGENCY Completed 03/04/17 Portable x-ray of chest Completed 01/04/17 SHERIF SANCHEZ M.D. Portable x-ray of chest Completed 02/07/17 ORION BOSE MD Portable x-ray of chest Completed 02/19/17 LATASHA GONZALEZ D.O. X-ray of chest, PA and lateral views Completed 02/23/17 SHERIF SANCHEZ M.D. X-ray of both knees with standing anteroposterior view Completed 03/05/17 MILY JONES APRN X-ray of pelvis, one or two views including anteroposterior view Completed MILY JONES APRN X-ray of left ankle, three or more views Completed 03/05/17 MILY JONES APRN X-ray of left knee, two views Completed 03/05/17 MILY JONES APRN Portable x-ray of chest Completed 03/06/17 LATASHA GONZALEZ D.O. Encounters Encounter Location Arrival/Admit Date Discharge/Depart Date Attending Provider Departed Emergency Room [facility] 03/06/17 6:36pm 03/06/17 8:45pm LATASHA GONZALEZ D.O. Registered [facility] 03/05/17 2:38pm MILY JONES APRN Departed Emergency Room [facility] 03/04/17 3:33pm 03/04/17 4:00pm CARMELINA CHRISTINE DO Departed Emergency Room [facility] 02/28/17 10:12pm 02/28/17 10:40pm CAMRELINA CHRISTINE DO Registered [facility] 02/28/17 8:45am TRIAGE, EMS Departed Emergency Room [facility] 02/22/17 11:41pm 02/23/17 12:50am SHERIF SANCHEZ M.D. Departed Emergency Room [facility] 02/22/17 12:03pm 02/22/17 2:45pm ALEXEY CYR MD Departed Emergency Room [facility] 02/19/17 12:36am 02/19/17 2:50am LATASHA GONZALEZ D.O. Departed Emergency Room [facility] 02/11/17 9:49pm 02/11/17 10:35pm LATASHA GONZALEZ D.O. Departed Emergency Room [facility] 02/07/17 11:23pm 02/08/17 1:15am ORION BOSE MD Departed Emergency Room [facility] 02/05/17 11:00pm 02/05/17 11:50pm HAILY EM DO Departed Emergency Room [facility] 01/04/17 9:20pm 01/05/17 12:15am SHERIF SANCHEZ M.D. Registered [facility] 12/07/16 4:15pm JAY JAY WREN APRN Recent Diagnosis
--- OUTSIDE RECORDS SUMMARY | 2018-07-10 18:50 | XMS REPORT | Continuity of Care Document ---
Author Author [facility] Organization [facility] Address [facility] [address] [place] [address] Phone Unavailable Support Name Relationship Address Phone LATASHA GONZALEZ D.O. Caregiver [address] [place] [address] JAY JAY WREN APRN Caregiver [address] [place] [address] SHMUEL FRANCOIS Next Of Kin [address] [place] [id number] Insurance Providers Guarantor Misa Lund Address [address] [place] [address] MESS Payer Medicare Policy Number [id number] Subscriber's Name Misa Lund Relationship 18 Self / Same As Patient Payer [facility] Policy Number [id number] Subscriber's Name Misa Lund Relationship 18 Self / Same As Patient Advance Directives Directive Response Recorded Date/Time Do you have an Advanced Directive? No 07/10/15 10:01pm Advance Directives No 06/30/17 4:22am Living Will No 06/30/17 4:22am Power of Theoretical Physicist for Health Care No 06/30/17 4:22am Organ, Tissue, or Eye Donor No 06/30/17 4:22am Do you have a signed organ donor card? No 12/08/15 9:31pm Chief Complaint and Reason for Visit Chief Complaint SHORTNESS OF BREATH Reason for Visit [id number] Problems Medical Problem Onset Date Status Acute [...] Past Problems Medical Problem Onset Date Status Influenza A Unknown Acute UTI (urinary tract infection) Unknown Acute Urinary tract infection Unknown Acute Medications Current Home Medications Medication Dose Units Route Directions Days Qty Instructions Start Date Acetaminophen (Tylenol 500 Mg Tab*) 500 Mg Tablet 1,000 Mg ORAL Every 4 Hours As Needed Amlodipine Besylate (Norvasc*) 5 Mg Tablet 5 Mg ORAL Daily 30 Tablet Aripiprazole (Abilify*) 10 Mg Tablet 10 Mg ORAL Bedtime 30 Tablet Azithromycin (Z-Pasha*) 250 Mg Tablet 250 Mg ORAL Daily 5 Days 6 Tablet Take two tablets by mouth the first day and one tablet each day for the second through fifth day. Benzedrex 2 Inh Every 2 Hours As Needed for Nasal Congestion Buspirone Hcl (Buspar) 10 Mg Tab 15 Mg ORAL Three Times A Day Carbamazepine (Tegretol 200 Mg Tab*) 200 Mg Tablet 200 Mg ORAL Twice A Day 60 Tablet Carvedilol (Coreg 6.25 Mg Tab*) 6.25 Mg Tablet 6.25 Mg ORAL Twice A Day 60 Tablet Cranberry Fruit Concentrate* (Cranberry*) 450 Mg Capsule 900 Mg ORAL Twice A Day Duloxetine Hcl (Cymbalta*) 30 Mg Capsule.dr 30 Mg ORAL Bedtime 30 Cap Duloxetine Hcl (Cymbalta*) 60 Mg Capsule.dr 60 Mg ORAL Daily Am 30 Cap Duoneb 0.5/2.5 1 Every 6 Hours As Needed for Wheezing Gabapentin (Neurontin 300 Mg Cap*) 300 Mg Capsule 600 Mg ORAL Three Times A Day 90 Cap Hydroxyzine Hcl (Atarax 25 Mg Tab*) 25 Mg Tablet 25 Mg ORAL Twice A Day 60 Tablet Isosorbide Mononitrate (Imdur-Er 30 Mg*) 30 Mg Tabcr 60 Mg ORAL Daily Levothyroxine Sodium (Synthroid 200 Mcg Tab*) 200 Mcg Tablet 200 Mcg ORAL Before Breakfast 30 Tablet Loperamide Hcl (Imodium A-D) 2 Mg Capsule As Needed TAKE 2 CAPS AFTER 3RD LOOSE STOOL, THEN 1 AFTER EACH LOOSE MIKA, MAX 6 CAPS IN 24 HOURS Montelukast Sodium (Singulair 10 Mg Tab*) 10 Mg Tablet 10 Mg ORAL Daily 7 Tablet 08/17/17 Naphazoline Hcl/Pheniramine (Allergy Eye Drops) 15 Ml Drops 2 Drop OPHTHALMIC Four Times Daily as needed for Allergy Symptoms Nasal Irrigation As Needed 1/4 TSP SALT AND 1/4 TEASPOON BAKING SODA IN 8 OZ WARM WATER. WHEN IRRIGATION LEAN OVER SINK, DIRECT BULB SYRINGE IN TOWARD EYE, AND FLUSH REPEATEDLY PRN SINUS/NASAL CARE Nebulizer Inhalation As Needed NEBULIZER WITH SALINE INH QID AND PRN Nicotine Patch 1 Patch TOPICAL Daily O2 2 L NASAL At Bedtime As Needed O2 AT 2L NEEDED AT HS Omeprazole Magnesium 20 Mg Capsule.dr 20 Mg ORAL Twice A Day Oseltamivir Phosphate (Tamiflu) 75 Mg Capsule 75 Mg ORAL Twice A Day 10 Cap 08/17/17 Phenol (Chloraseptic*) 177 Ml [place].pump 1 [place] ORAL Every 2 Hours As Needed Salon Pas/Lidocaine 1 Patch NOT APPLICABLE Daily Topiramate (Topamax 100 Mg Tab*) 100 Mg Tablet 100 Mg ORAL Twice A Day 30 Tablet Tramadol Hcl (Ultram 50 Mg Tab*) 50 Mg Tablet 50 Mg ORAL Four Times Daily 15 Tablet Tylenol Arthritis 650 Mg ORAL Twice A Day Warfarin Sodium (Coumadin 10 Mg Tab*) 10 Mg Tablet 11 Mg ORAL Daily 30 Tablet Past Home Medications Medication Directions Ordered Status Acetaminophen/Hydrocodone Bitart ([place] 7.5-325 Tab*) 1 Tab Tablet, 1 Each Oral Every 4 Hrs As Needed Pain as needed for Pain Discontinued Acetaminophen/Hydrocodone Bitart ([place] 7.5-325 Tab*) 1 Tab Tablet, 1 Each Oral Every 6 Hrs As Needed For Pain as needed for Pain 10/22/16 Discontinued Acetaminophen/Hydrocodone Bitart ([place] 7.5-325 Tab*) 1 Tab Tablet, 1 Each Oral Every 4 Hrs As Needed Pain for Pain Discontinued Acidophilus/Pectin, [place] (Acidophilus-Pectin [place]) 1 Each Tablet, 1 Tab [...] Inhalation Four Times Daily As Needed Discontinued Aripiprazole (Abilify*) 10 Mg Tablet, 10 Mg Oral Daily Discontinued Atrovent Estefania 0.0.6% , 2 [place] Nasal Twice A Day Discontinued Baclofen (Baclofen*) 10 Mg Tablet, 10 Mg Oral Four Times Daily Discontinued Biotin 2,500 Mcg Capsule, 5000 Mcg [...] Mg Oral Twice A Day 07/15/17 Discontinued Cyclobenzaprine Hcl (Cyclobenzaprine Hcl*) 10 Mg [...] 30 Mg Oral Today At 5:00PM Discontinued Fentanyl (Duragesic 25 Mcg/Hr Patch*) 1 [...] Mg Oral Daily As Needed Discontinued Ipratropium [place] (Atrovent*) 0.5 Mg/2.5 Ml Nebu, 0.5-2.5 Mg Respiratory ( Inhalation) Twice A Day Discontinued Levofloxacin (Levaquin 750 Mg Tab*) 750 [...] Times Daily As Needed Discontinued Loperamide Hcl 1 Mg/5 [...] 4 Mg Oral As Directed 02/22/17 Discontinued Mupirocin (Bactroban 2% Oint*) 22 Gm Oint, 22 Gm Extracorporeal Daily Discontinued Nebulizer , Inhalation Four Times Daily Discontinued Nitroglycerin (Nitrostat*) 0.4 Mg Tab.subl, [...] , Unknown Dose Topical As Needed Discontinued Omeprazole (Prilosec 20 Mg Cap*) 20 Mg Capsule.dr, 20 Mg Oral Twice A Day Discontinued Omeprazole (Prilosec 20 Mg Cap*) 20 Mg Capsule.dr, 20 Mg Oral Twice A Day Discontinued Omeprazole/Sodium Bicarbonate (Omeprazole-Bicarb 20-1,680 Pkt) 1 Each Packet, Discontinued Orphenadrine Citrate (Norflex) 100 Mg Tablet.sa, 100 Mg Oral Twice A Day 08/11 Discontinued Oxycodone Hcl/Acetaminophen (Percocet 7.5-325 Mg Tablet) 1 Tab Tablet, 1 Tab Oral Every 4-6 Hrs As Needed Pain 02/22/17 Discontinued Phenol (Chloraseptic) 20 Ml [place], 20 Ml Oropharyngeal as needed for Throat Pain Discontinued Phenol/Glycerin (Chloraseptic Max [place]) 30 Ml [place], 5 [place] Nasal As Needed Discontinued Potassium Chloride (K-Dur 10 Meq*) 10 Meq Tab.prt.sr, 10 Meq Oral Daily Discontinued Potassium Chloride (Micro-K 10 Extencaps*) 10 Meq Tab, 10 Meq Oral Daily Discontinued Potassium Chloride (Micro-K 10 Extencaps*) 10 Meq Tab, 10 Meq Oral Daily Discontinued Prazosin Hcl (Minipress*) 2 Mg Capsule, 1 Mg Oral Bedtime Discontinued Prednisone (Prednisone 20 Mg Tab*) 20 [...] Puff Inhalation Twice A Day 09/26/16 Discontinued Spironolactone (Aldactone*) 25 Mg Tablet, 25 [...] 90 Gm Topical 2-3 Times Daily Discontinued Dalia Boots , Discontinued Vancomycin Hcl 100 Gm Bulkbaginj, 200 [...] Cigarettes 05/02/2016 3:40pm Not Applicable Not Applicable Alcohol Use sober 08/17/2017 4:16am Not Applicable Not Applicable Drug Use none 08/17/2017 4:16am Not Applicable Not Applicable Employment Retired 08/17/2017 4:16am Not Applicable Not Applicable Smoking Status Start Date Stop Date Current every day smoker Hospital Discharge Instructions No hospital discharge instruction information available. Plan of Care Discharge Date 08/17/17 5:15am Condition at Discharge Stable Instructions/Education Provided Influenza (GEN) Prescriptions See Medication Section Functional Status Query Response Date Recorded [place] Coma Scale Total 15 August 17, 2017 2:00am Patient Behavior Cooperative August 17, 2017 2:00am Allergies, Adverse Reactions, Alerts Allergen Type Severity Reaction Status Last Updated IODINE Allergy Unknown Active 08/17/17 Penicillin Allergy Unknown Active 08/17/17 Tetracyclines Allergy Unknown Active 08/17/17 SULFA (SULFONAMIDE ANTIBIOTICS) Allergy Unknown Active 08/17/17 Iodine Allergy Unknown Active 08/17/17 Morphine Allergy Unknown Active 08/17/17 Codeine Allergy Unknown Active 08/17/17 Oxycodone Allergy Unknown Active 08/17/17 Propoxyphene Allergy Unknown Active 08/17/17 Aspirin Allergy Unknown Active 08/17/17 Acetaminophen Allergy Unknown Active 08/17/17 Cephalexin Allergy Unknown Active 08/17/17 Erythromycin base Allergy Unknown Active 08/17/17 Diphenhydramine Allergy Unknown Active 08/17/17 Ketorolac Allergy Unknown Active 08/17/17 Banana Allergy Unknown Active 08/17/17 Fish Allergy Unknown Active 08/17/17 Mushrooms Allergy Unknown Active 08/17/17 DARVOCET Allergy Unknown Active 07/14/17 Immunizations Query Response on File Recorded Date/Time Hx Diphtheria, Pertussis, Tetanus Vaccination Unknown 08/17/17 2:00am Hx Influenza Vaccination N - Doesn't take 08/17/17 2:00am Hx Pneumococcal Vaccination Y - Current 08/17/17 2:00am Hx Tetanus, Diphtheria Vaccination Yes 09/22/16 8:27pm Hx Tetanus Toxoid Vaccination Yes 09/22/16 8:27pm Vital Signs Acute Vital Signs Vital Response Date/Time Temperature (Fahrenheit) 97.8 degrees F (97.6 - 99.5) 08/17/2017 4:45am Temperature Source Temporal Artery 08/17/2017 4:45am Pulse Rate (adult) 84 bpm (60 - 90) 08/17/2017 4:41am Respiratory Rate 22 bpm (12 - 24) 08/17/2017 4:41am Blood Pressure 122/66 mm Hg 08/17/2017 4:41am O2 Sat by Pulse Oximetry 95 % (90 - 100) 08/17/2017 4:41am Oxygen Delivery Method Unhumidified Oxygen Nasal Cannula 08/17/2017 4:41am Oxygen Flow Rate 3.0 L/min 08/17/2017 4:41am Pain Intensity 2 07/07/2017 9:18pm Pain Location Body Site Modifier Lower 08/17/2017 3:44am Pain Description Aching 08/17/2017 3:44am Height 5 ft 5 in 08/17/2017 2:00am Weight 273.37 lb 08/17/2017 2:00am Body Mass Index 45.0 kg/m^2 08/17/2017 2:00am Results Laboratory Results Test Name Result Units Flags Reference Collection Date/Time Result Date/ Time Comments Cholesterol Level 235 mg/dL H 120-200 06/08/2017 7:00am 06/08/2017 8: 15am Triglycerides Level 200 mg/dL 30-200 06/08/2017 7:00am 06/08/2017 8: 15am HDL Cholesterol 35 mg/dL 35-60 06/08/2017 7:00am 06/08/2017 8:15am LDL Cholesterol 160 mg/dL H 0-130 06/08/2017 7:00am 06/08/2017 8:15am Thyroid Stimulating Hormone (TSH) 3.22 uIU/ml 0.36-3.74 06/08/2017 7: 00am 06/08/2017 8:15am Lactic Acid Level 1.2 mmol/L 0.4-2 06/30/2017 1:40am 06/30/2017 1:03am Phosphorus Level 3.2 mg/dL 2.7-4.5 07/01/2017 5:03am 07/01/2017 6:09am Lipase 97 U/L 65-230 06/30/2017 1:40am 06/30/2017 1:21am Neutrophils (%) (Auto) 64.8 % 42.2-75.2 07/07/2017 9:50pm 07/07/2017 10 :02pm Lymphocytes (%) (Auto) 27.8 % 20.5-51.1 07/07/2017 9:50pm 07/07/2017 10 :02pm Monocytes (%) (Auto) 5.0 % 1.7-9.3 07/07/2017 9:50pm 07/07/2017 10: 02pm Eosinophils (%) (Auto) 1.9 % 0-3 07/07/2017 9:50pm 07/07/2017 10:02pm Basophils (%) (Auto) 0.5 % 0.0-1.0 07/07/2017 9:50pm 07/07/2017 10: 02pm Neutrophils # (Auto) 6.3 K/uL 2.0-6.9 07/07/2017 9:50pm 07/07/2017 10: 02pm Lymphocytes # (Auto) 2.7 K/uL 1.2-3.4 07/07/2017 9:50pm 07/07/2017 10: 02pm Monocytes # (Auto) 0.5 K/uL 0.1-0.6 07/07/2017 9:50pm 07/07/2017 10: 02pm Eosinophils # (Auto) 0.2 K/uL 0.0-0.7 07/07/2017 9:50pm 07/07/2017 10: 02pm Basophils # (Auto) 0.1 K/uL 0.0-0.2 07/07/2017 9:50pm 07/07/2017 10: 02pm Total Creatine Kinase 42 U/L 26-192 07/07/2017 9:50pm 07/07/2017 10: 29pm Creatine Kinase MB 0.6 ng/mL 0-3.6 07/07/2017 9:50pm 07/07/2017 10: 29pm Myoglobin 24.0 NG/ML 10.5-92.5 07/07/2017 9:50pm 07/07/2017 10:29pm Troponin I < 0.02 ng/mL 0.0-0.2 07/07/2017 9:50pm 07/07/2017 10:29pm Prothrombin Time 26.6 SECONDS H 9.10-11.20 07/24/2017 12:30pm 2016 3:28pm Prothromb Time International Ratio 2.65 H 0.9-1.1 07/24/2017 12:30pm 07/24/2017 3:28pm PLEASE NOTE REFERENCE RANGE Thyroid Stimulating Hormone (TSH) 0.53 uIU/ml 0.36-3.74 07/24/2017 12: 30pm 07/24/2017 3:41pm Urine Color YELLOW YELLOW 08/08/2017 6:45am 08/08/2017 7:09am Urine Appearance CLEAR CLEAR 08/08/2017 6:45am 08/08/2017 7:09am Urine Glucose (UA) NEGATIVE mg/dL NEGATIVE 08/08/2017 6:45am 2016 7:09am Urine Bilirubin NEGATIVE NEGATIVE 08/08/2017 6:45am 08/08/2017 7: 09am Urine Ketones NEGATIVE mg/dL NEGATIVE 08/08/2017 6:45am 08/08/2017 7: 09am Urine Specific [place] 1.020 1.010-1.025 08/08/2017 6:45am 2016 7:09am Urine Occult Blood NEGATIVE NEGATIVE 08/08/2017 6:45am 08/08/2017 7: 09am Urine pH 6.0 5.0-8.0 08/08/2017 6:45am 08/08/2017 7:09am Urine Protein NEGATIVE mg/dL NEGATIVE 08/08/2017 6:45am 08/08/2017 7: 09am Urine Urobilinogen 0.2 mg/dL E.U./dL 0.2-1.0 08/08/2017 6:45am 2016 7:09am Urine Nitrate NEGATIVE NEGATIVE 08/08/2017 6:45am 08/08/2017 7:09am Urine Leukocyte Esterase 1+ (Small) H NEGATIVE 08/08/2017 6:45am 08/08 7:09am Urine RBC NEGATIVE /hpf 0 08/08/2017 6:45am 08/08/2017 7:19am Urine WBC 10-14 /hpf H 0-4 08/08/2017 6:45am 08/08/2017 7:19am Urine Squamous Epithelial Cells 5-10 /hpf H 0-1 08/08/2017 6:45am 2016 7:19am Urine Bacteria NEGATIVE NEGATIVE 08/08/2017 6:45am 08/08/2017 7:19am Urine Mucus FEW H NEGATIVE 08/08/2017 6:45am 08/08/2017 7:19am White Blood Count 3.8 K/uL L 4.8-10.8 08/17/2017 2:00am 08/17/2017 3: 04am Red Blood Count 5.04 M/uL 4.20-5.40 08/17/2017 2:00am 08/17/2017 3: 04am Hemoglobin 13.2 gm/dL 12.0-16.0 08/17/2017 2:00am 08/17/2017 3:04am Hematocrit 43.4 % 37.0-47.0 08/17/2017 2:00am 08/17/2017 3:04am Mean Corpuscular Volume 86.1 fL 81.0-99.0 08/17/2017 2:00am 08/17/2017 3:04am Mean Corpuscular Hemoglobin 26.2 pg L 27.0-31.0 08/17/2017 2:00am 2016 3:04am Mean Corpuscular Hemoglobin Concent 30.5 g/dL 30.0-37.0 08/17/2017 2: 00am 08/17/2017 3:04am Red Cell Distribution Width 16.3 % H 11.5-14.5 08/17/2017 2:00am 2016 3:04am Platelet Count 228 K/uL 130-400 08/17/2017 2:00am 08/17/2017 3:04am Mean Platelet Volume 7.7 fL 7.4-10.4 08/17/2017 2:00am 08/17/2017 3: 04am Neutrophils 63.0 % 50-65 08/17/2017 2:00am 08/17/2017 3:22am Lymphocytes (Manual) 33.0 % 25-40 08/17/2017 2:00am 08/17/2017 3:22am Monocytes (Manual) 4.0 % 4-10 08/17/2017 2:00am 08/17/2017 3:22am Neutrophils # (Manual) 2.4 K/uL 2.0-6.9 08/17/2017 2:00am 08/17/2017 3: 21am Absolute Lymphocytes (Manual) 1.3 K/uL 1.2-3.4 08/17/2017 2:00am 2016 3:21am Absolute Monocytes (Manual) 0.2 K/uL 0.1-0.6 08/17/2017 2:00am 2016 3:21am Platelet Estimate NORMAL NORMAL 08/17/2017 2:00am 08/17/2017 3:22am Random Glucose 135 mg/dL H 70-110 08/17/2017 2:00am 08/17/2017 2:58am Blood Urea Nitrogen 11 mg/dL 7-18 08/17/2017 2:00am 08/17/2017 2:58am Creatinine 0.9 mg/dL 0.55-1.02 08/17/2017 2:00am 08/17/2017 2:58am Sodium Level 139 mEq/L 136-145 08/17/2017 2:00am 08/17/2017 2:58am Potassium Level 3.3 mEq/L L 3.5-5.0 08/17/2017 2:00am 08/17/2017 2:58am Chloride Level 104 mEq/L 98-107 08/17/2017 2:00am 08/17/2017 2:58am Carbon Dioxide Level 26.2 mEq/L 21-32 08/17/2017 2:00am 08/17/2017 2: 58am Calcium Level 8.4 mg/dL L 8.8-10.5 08/17/2017 2:00am 08/17/2017 2:58am Total Protein 7.8 gm/dL 6.4-8.2 08/17/2017 2:00am 08/17/2017 2:58am Albumin 2.8 gm/dL L 3.4-5.0 08/17/2017 2:00am 08/17/2017 2:58am Total Bilirubin 0.15 mg/dL 0.00-1.00 08/17/2017 2:00am 08/17/2017 2: 58am Aspartate Amino Transf (AST/SGOT) 24 U/L 15-37 08/17/2017 2:00am 2016 2:58am Alanine Aminotransferase (ALT/SGPT) 19 U/L 12-78 08/17/2017 2:00am 2:58am Total Alkaline Phosphatase 145 U/L H 46-116 08/17/2017 2:00am 2016 2:58am Influenza Type A (Rapid) POSITIVE A 08/17/2017 3:30am 08/17/2017 3: 56am Influenza Type B (Rapid) NEGATIVE 08/17/2017 3:30am 08/17/2017 3: 56am Glomerular Filtration Rate Calc 63.9 mL/min 08/17/2017 2:00am 2016 2:58am Microbiology Results Procedure Source Organism/Result Collection Date/Time Result Date/Time Result Status Urine Culture Urine,Random PROTEUS MIRABILIS 06/21/2017 7:25pm 06/24/2017 8:41am Final Urine Culture Urine,Catheterized PROTEUS MIRABILIS 06/30/2017 12:35am 02/2017 7:28am Final Blood Culture Blood NO GROWTH AFTER 5 DAYS 06/30/2017 1:43am 07/05/2017 2: 03am Final Procedures Procedure Status Date Provider(s) PROTHROMBIN TIME Completed 05/26/17 COMPREHEN METABOLIC PANEL Completed 06/08/17 LIPID PANEL Completed 06/08/17 ASSAY THYROID STIM HORMONE Completed 06/08/17 COMPLETE CBC AUTOMATED Completed 06/08/17 SCREENINGMAMMOGRAPHYDIGITAL Completed 06/18/17 URINALYSIS AUTO WSCOPE Completed 06/21/17 CULTURE AEROBIC IDENTIFY Completed 06/21/17 URINE CULTURECOLONY COUNT Completed 06/21/17 MICROBE SUSCEPTIBLE GERARDO Completed 06/21/17 ROUTINE VENIPUNCTURE Completed 07/07/17 CHEST X-RAY 1 VIEW FRONTAL Completed 07/07/17 COMPREHEN METABOLIC PANEL Completed 07/07/17 ASSAY OF CK (CPK) Completed 07/07/17 ASSAY OF CPK IN BLOOD Completed 07/07/17 ASSAY OF MYOGLOBIN Completed 07/07/17 ASSAY OF TROPONIN QUANT Completed 07/07/17 COMPLETE CBC AUTOMATED Completed 07/07/17 ELECTROCARDIOGRAM TRACING Completed 07/07/17 RHYTHM ECG WITH REPORT Completed 07/07/17 EMERGENCY DEPT VISIT Completed 07/07/17 GROUND MILEAGE Completed 07/07/17 BLS-EMERGENCY Completed 07/07/17 CT LUMBAR SPINE WO DYE Completed 07/15/17 URINALYSIS AUTO WSCOPE Completed 07/14/17 EMERGENCY DEPT VISIT Completed 07/14/17 ASSAY THYROID STIM HORMONE Completed 07/24/17 PROTHROMBIN TIME Completed 07/24/17 URINALYSIS AUTO WSCOPE Completed 08/08/17 URINE CULTURECOLONY COUNT Completed 08/08/17 Digital screening mammography of both breasts Completed 06/18/17 ESTEPHANIE MACHADO MD Computed tomography of abdomen and pelvis without contrast Completed SHANELLE GARCIA MD Portable x-ray of chest Completed 07/07/17 CARMELINA CHRISTINE DO Computed tomography of lumbar spine without contrast Completed 07/15/17 ESTEPHANIE MACHADO MD Portable x-ray of chest Completed 08/17/17 LATASHA GONZALEZ D.O. Encounters Encounter Location Arrival/Admit Date Discharge/Depart Date Attending Provider Departed Emergency Room [facility] 08/17/17 1:57am 08/17/17 5:15am LATASHA GONZALEZ D.O. Registered Referred [facility] 08/08/17 10:29pm ESTEPHANIE MACHADO MD Registered Referred [facility] 07/24/17 2:18pm ESTEPHANIE MACHADO MD Registered Clinic [facility] 07/15/17 1:08pm ESTEPHANIE MACHADO MD Departed Emergency Room [facility] 07/14/17 10:29pm 07/15/17 12:40am HAILY EM DO Departed Emergency Room [facility] 07/07/17 9:20pm 07/07/17 10:40pm CARMELINA CHRISTINE DO Discharged Inpatient [facility] 06/30/17 3:44am 07/01/17 11:48am NICK BECK MD Registered Referred [facility] 06/21/17 9:06pm ESTEPHANIE MACHADO MD Registered Clinic [facility] 06/18/17 10:02am ESTEPHANIE MACHADO MD Registered Referred [facility] 06/08/17 7:29am ESTEPHANIE MACHADO MD Registered Referred [facility] 05/26/17 6:01pm ESTEPHANIE MACHADO MD Recent Diagnosis
--- OUTSIDE RECORDS SUMMARY | 2018-07-10 18:51 | XMS REPORT | Continuity of Care Document ---
Author Author [facility] Organization [facility] Address [facility] [address] [place] [address] Phone Unavailable Support Name Relationship Address Phone ESTEPHANIE MACHADO MD Caregiver [address] [place] [address] SHANELLE GARCIA MD Caregiver [address] [place] [address] SHMUEL FRANCOIS Next Of Kin [address] [place] [address] Insurance Providers Payer Name Policy Number Subscriber Name Relationship Medicare [id number] Misa Lund 18 Self / Same As Patient [facility] [id number] Misa Lund 18 Self / Same As Patient Advance Directives Directive Response Recorded Date/Time Do you have an Advanced Directive? No 07/10/15 10:01pm Advance Directives No 09/22/16 10:40pm Living Will No 09/22/16 10:40pm Health Care Proxy No 09/22/16 10:40pm Power of Aircraft Machinist Helper for Health Care No 09/22/16 10:40pm Organ, [...] Mg Sublingual As Needed for Chest Pain 10/ 31/15 Aripiprazole 10 Mg 10 Mg Oral Daily [...] Oral Three Times A Day 07/23/15 Acidophilus/Pectin, [place] 1 Each 1 Tab Oral Daily 07/23/15 [...] 200 Mcg Oral Daily 30 09/22/16 Ipratropium [place] 0.5 Mg/2.5 Ml 0.5-2.5 Mg Inhalation Twice A Day 09/22/16 Topiramate 100 Mg 100 Mg Oral Twice A Day 30 09/22/16 Sucralfate 1 G 1 Gm Oral Four Times Daily 09/22/16 Phenol/Glycerin 30 Ml 5 [place] Nasal As Needed 09/22/16 Hydroxyzine Hcl 50 [...] 09/22/2016 10:40pm Tobacco Use Cigarettes 05/02/2016 3:40pm Alcohol Use none 09/22/2016 9:19pm Drug Use none 09/22/2016 9:19pm Query Response Start Date Stop Date Smoking Status Current every day smoker Hospital Discharge Instructions Discharge Instructions Provider Instructions Make Appointment with: Dr. Machado [phone] Follow Up In: 2 Weeks Smoking Cessation If you are a smoker, the following is recommended: Stop all tobacco use; for help quitting, please call [phone]. Notify Physician If: Chest Pain Nursing Instructions [...] N/A Plan of Care Discharge Date 09/23/16 1:36pm Disposition 01 HOME, DETENTION,ASSISTED LIVING Instructions/Education Provided Chest Pain (DC) Prescriptions See Medication Section Care Plan and [...] (Fahrenheit) 97.8 degrees F (97.6 - 99.5) 09/23/2016 9:59am Temperature Source Temporal Artery 09/23/2016 9:59am Pulse Rate (adult) 74 bpm (60 - 90) 09/23/2016 9:59am Respiratory Rate 20 bpm (12 - 24) 09/23/2016 9:59am Blood Pressure 123/72 mm Hg 09/23/2016 9:59am O2 Sat by Pulse Oximetry 96 % (90 - 100) 09/23/2016 9:59am Oxygen Delivery Method 09/22/2016 10:14pm Oxygen Flow Rate 2.0 L/min 09/23/2016 6:16am [...] GARCIA MD Encounters Encounter Location Arrival/Admit Date Discharge/Depart Date Attending Provider Admitted Inpatient (obs) [facility] 09/22/16 11:18pm ESTEPHANIE MACHADO MD Registered Referred [facility] 09/14/16 3:48pm ESTEPHANIE MACHADO MD Registered Referred [facility] 08/24/16 5:38pm CARY LUI APRN Recent Diagnosis Chest pain
--- OUTSIDE RECORDS SUMMARY | 2018-07-10 18:51 | XMS REPORT | Continuity of Care Document ---
Author Author [facility] Organization [facility] Address [facility] [address] [place] [address] Phone Unavailable Support Name Relationship Address Phone ESTEPHANIE MACHADO MD Caregiver [address] [place] [address] MANAV HAILY DO Caregiver [address] [place], [place] [id number] SHMUEL FRANCOIS Next Of Kin [address] [place] [address] Insurance Providers Payer Name Policy Number Subscriber Name Relationship Medicare [id number] Misa Lund 18 Self / Same As Patient [facility] [employer] [id number] Misa Lund 18 Self / Same As Patient Advance Directives Directive Response Recorded Date/Time Do you have an Advanced Directive? No 07/10/15 10:01pm Advance Directives N N 12/08/15 9:31pm Living Will No 12/08/15 9:31pm Health Care Proxy No 05/02/16 1:27pm Power of Test Kitchen Home Economist for Health Care No 12/08/15 9:31pm Organ, Tissue, or Eye Donor No 12/08/15 9:31pm Do you have a signed organ donor card? No 12/08/15 9:31pm Chief Complaint and Reason for Visit Chief Complaint LOW BACK PAIN/INJURY Reason for Visit Lumbar strain Problems Active Problems Medical Problem Onset Date [...] Mg Sublingual As Needed for Chest Pain Levothyroxine Sodium 150 Mcg 150 Mcg Oral [...] Oral Three Times A Day 07/23/15 Acidophilus/Pectin, [place] 1 Each 1 Tab Oral Daily 07/23/15 Lorazepam 0.5 Mg 0.5 Mg Oral Every 6 Hours As Needed 60 07/23/15 Albuterol Sulfate (Proair Hfa) 8.5 Gm 1 Puff Inhalation Four Times Daily As Needed 07/23/15 Cyclobenzaprine Hcl (Flexeril*) 10 Mg 10 Mg Oral Three Times A Day 15 05/02/16 Calcium Carbonate 500 ( 500 Mg Oral Three Times Daily With Meals 03/10 Loperamide Hcl 2 Mg 2 Mg Oral 05/02/16 Cetirizine Hcl 10 Mg 10 Mg Oral 05/02/16 Acetaminophen 500 Mg 1,000 Mg Oral Every 4-6 Hours 05/02/16 Cyclobenzaprine Hcl (Flexeril*) 10 Mg 10 Mg Oral Twice A Day 15 Past Home Medications Medication Directions Ordered Status [...] 8 Hours As Needed Pain 07/23/15 Discontinued Nitroglycerin 0.4 Mg Tab.subl, 0.4 Mg Sublingual As Needed 07/23/15 Discontinued Aripiprazole 10 Mg Tablet, 10 Mg Oral Daily 07/23/15 Discontinued Fentanyl 1 Ea Tdsy, 1 Ea Transderm Every Three Days 07/23/15 Discontinued Meloxicam 7.5 Mg Tablet, 7.5 Mg Oral Twice A Day 07/23/15 Discontinued Social History Social History Problem Response Recorded Date/Time Smoking Status Current every day smoker 12/08/2015 10:00pm Tobacco Use Cigarettes 05/02/2016 3:40pm Alcohol Use none 05/02/2016 3:40pm Drug Use none 05/02/2016 3:40pm Query Response Start Date Stop Date Smoking Status Current every day smoker Hospital Discharge Instructions No hospital discharge instructions. Plan of Care Discharge Date 05/02/16 5:23pm Condition at Discharge Stable Instructions/Education Provided Low Back Strain (ED) Acute Low Back Pain (ED) Prescriptions See Medication Section Referrals Your PCP - Functional Status Query Response Date Recorded Union Coma Scale Total 15 May 02, 2016 1:30pm Patient Behavior Cooperative May 02, 2016 1:30pm Allergies, Adverse Reactions, Alerts Allergen Type Severity Reaction Status Last Updated IODINE Allergy Unknown Active 07/24/15 Penicillin Allergy Unknown Active 07/24/15 Cephalosporins Allergy Unknown Active 05/02/16 Tetracyclines Allergy Unknown Active 07/24/15 SULFA (SULFONAMIDE ANTIBIOTICS) Allergy Unknown Active 07/24/15 Morphine Allergy Unknown Active 07/24/15 Codeine Allergy Unknown Active 05/02/16 Aspirin Allergy Unknown Active 05/02/16 Erythromycin base Allergy Unknown Active 07/24/15 Diphenhydramine Allergy Unknown Active 05/02/16 Ketorolac Allergy Unknown Active 07/24/15 Immunizations Name Given Type Hx Diphtheria, Pertussis, Tetanus Vaccination Unknown Historical Hx Influenza Vaccination No Historical Hx Pneumococcal Vaccination Y X1 2014 Historical Hx Tetanus, Diphtheria Vaccination No Historical Hx Tetanus Toxoid Vaccination N UNSURE Historical Vital Signs Acute Vital Signs Vital Response Date/Time Temperature (Fahrenheit) 97.1 degrees F (97.6 - 99.5) 05/02/2016 5:23pm Temperature Source Temporal Artery 05/02/2016 5:23pm Pulse Rate (adult) 76 bpm (60 - 90) 05/02/2016 5:23pm Respiratory Rate 18 bpm (12 - 24) 05/02/2016 5:23pm Blood Pressure 116/67 mm Hg 05/02/2016 5:23pm O2 Sat by Pulse Oximetry 96 % (90 - 100) 05/02/2016 5:23pm Oxygen Delivery Method 05/02/2016 5:23pm Pain Location Body Site Modifier Lower 05/02/2016 3:30pm Pain Description 05/02/2016 2:51pm Height 5 ft 5 in Weight 311 lb Body Mass Index 51.0 kg/m^2 Results No known relevant diagnostic tests, laboratory data and/or discharge summary. Procedures Procedure Status Date Provider(s) X-RAY EXAM L-2 SPINE 4/>VWS Completed 04/25/16 X-ray of lumbar spine, views including oblique Active 04/25/16 ELISEO CATHERINE Computed tomography of abdomen and pelvis without contrast Active 05/02/16 HAILY EM DO Encounters Encounter Location Arrival/Admit Date Discharge/Depart Date Attending Provider Departed Emergency Room [place] 05/02/16 1:26pm 05/02/16 5:23pm HAILY EM DO [facility] [place] 04/25/16 1:58pm ELISEO CATHERINE Recent Diagnosis
--- OUTSIDE RECORDS SUMMARY | 2018-07-10 18:52 | XMS REPORT | Continuity of Care Document ---
Author Author [facility] Organization [facility] Address [facility] [address] [place] [address] Phone Unavailable Support Name Relationship Address Phone JAY JAY WREN ASSEMBLY MACHINE TOOL SETTER Caregiver [address] [place] [address] HAILY EM DO Caregiver [address] [place] [address] SHMUEL FRANCOIS Next Of Kin [address] [place] [address] Insurance Providers Guarantor Misa Lund Address [address] [place] [address] Payer Medicare Policy Number [id number] Subscriber's Name Misa Lund Relationship 18 Self / Same As Patient Payer [facility] Policy Number [id number] Subscriber's Name Misa Lund Relationship 18 Self / Same As Patient Advance Directives Directive Response Recorded Date/Time Do you have an Advanced Directive? No 07/10/15 10:01pm Advance Directives No 06/30/17 4:22am Living Will No 06/30/17 4:22am Health Care Proxy No 10/26/17 9:19pm Power of Hydration Plant Operator for Health Care No 06/30/17 4:22am Organ, Tissue, or Eye Donor No 06/30/17 4:22am Do you have a signed organ donor card? No 12/08/15 9:31pm Chief Complaint and Reason for Visit Chief Complaint CHEST PAIN Reason for Visit [id number] Chest pain Problems Medical Problem Onset Date Status Acute [...] Onset Date Status Influenza A Unknown Acute Subtherapeutic anticoagulation Unknown Acute UTI (urinary tract infection) Unknown [...] Tablet 10 Mg ORAL Bedtime 30 Tablet Benzedrex 2 Inh Every 2 Hours As [...] NEBULIZER WITH SALINE INH QID AND PRN O2 2 L NASAL At Bedtime As Needed O2 AT 2L NEEDED AT HS Omeprazole Magnesium 20 Mg Capsule.dr 20 Mg ORAL Twice A Day Phenol (Chloraseptic*) 177 Ml [place].pump 1 [place] ORAL Every 2 Hours As Needed Salon [...] Medications Medication Directions Ordered Status Acetaminophen/Hydrocodone Bitart ([place] 7.5-325 Tab*) 1 Tab Tablet, 1 Each Oral Every 4 Hrs As Needed Pain as needed for Pain Discontinued Acetaminophen/Hydrocodone Bitart ([place] 7.5-325 Tab*) 1 Tab Tablet, 1 Each Oral Every 6 Hrs As Needed For Pain as needed for Pain 10/22/16 Discontinued Acetaminophen/Hydrocodone Bitart ([place] 7.5-325 Tab*) 1 Tab Tablet, 1 Each Oral Every 4 Hrs As Needed Pain for Pain Discontinued Acidophilus/Pectin, [place] (Acidophilus-Pectin [place]) 1 Each Tablet, 1 Tab [...] Daily Discontinued Atrovent Estefania 0.0.6% , 2 [place] Nasal Twice A Day Discontinued Azithromycin (Z-Pasha*) [...] Mg Oral Daily As Needed Discontinued Ipratropium Petros (Atrovent*) 0.5 Mg/2.5 Ml Nebu, 0.5-2.5 Mg [...] Pain 02/22/17 Discontinued Phenol (Chloraseptic) 20 Ml [place], 20 Ml Oropharyngeal as needed for Throat Pain Discontinued Phenol/Glycerin (Chloraseptic Max [place]) 30 Ml [place], 5 [place] Nasal As Needed Discontinued Potassium Chloride (K-Dur [...] 3:40pm Not Applicable Not Applicable Alcohol Use none 10/26/2017 9:27pm Not Applicable Not Applicable Drug Use none 10/26/2017 9:27pm Not Applicable Not Applicable Smoking Status Start Date Stop Date Current every day smoker Hospital Discharge Instructions No hospital discharge instruction information available. Plan of Care Discharge Date 10/26/17 11:48pm Condition at Discharge Stable Instructions/Education Provided Chest Pain (ED) Safe Use of Anticoagulants (ED) Prescriptions See Medication Section Referrals JAY JAY WREN APRN Address: [address] [address] Functional Status Query Response Date Recorded [place] Coma Scale Total 15 October 26, 2017 9:39pm Patient Behavior Cooperative Appropriate October 26, 2017 9:17pm Allergies, Adverse Reactions, Alerts Allergen Type Severity Reaction Status Last Updated IODINE Allergy Unknown Active 10/26/17 Penicillin Allergy Unknown Active 10/26/17 Tetracyclines Allergy Unknown Active 10/26/17 SULFA (SULFONAMIDE ANTIBIOTICS) Allergy Unknown Active 10/26/17 Iodine Allergy Unknown Active 10/26/17 Morphine Allergy Unknown Active 10/26/17 Codeine Allergy Unknown Active 10/26/17 Oxycodone Allergy Unknown Active 10/26/17 Propoxyphene Allergy Unknown Active 10/26/17 Aspirin Allergy Unknown Active 10/26/17 Acetaminophen Allergy Unknown Active 10/26/17 Cephalexin Allergy Unknown Active 10/26/17 Erythromycin base Allergy Unknown Active 10/26/17 Diphenhydramine Allergy Unknown Active 10/26/17 Ketorolac Allergy Unknown Active 10/26/17 Banana Allergy Unknown Active 10/26/17 Fish Allergy Unknown Active 10/26/17 Mushrooms Allergy Unknown Active 10/26/17 DARVOCET Allergy Unknown Active 07/14/17 Immunizations Query Response on File Recorded Date/Time Hx Diphtheria, Pertussis, Tetanus Vaccination Unknown 08/17/17 2:00am Hx Influenza Vaccination N - REFUSES 10/26/17 9:15pm Hx Pneumococcal Vaccination Yes 10/26/17 9:15pm Hx Tetanus, Diphtheria Vaccination No 10/26/17 9:15pm Hx Tetanus Toxoid Vaccination Yes 09/22/16 8:27pm Vital Signs Acute Vital Signs Vital Response Date/Time Temperature (Fahrenheit) 98.2 degrees F (97.6 - 99.5) 10/26/2017 9:16pm Temperature Source Temporal Artery 10/26/2017 9:16pm Pulse Rate (adult) 76 bpm (60 - 90) 10/26/2017 10:27pm Respiratory Rate 18 bpm (12 - 24) 10/26/2017 10:27pm Blood Pressure 120/65 mm Hg 10/26/2017 10:27pm O2 Sat by Pulse Oximetry 93 % (90 - 100) 10/26/2017 10:27pm Oxygen Delivery Method Room Air 10/26/2017 10:27pm Oxygen Flow Rate 3.0 L/min 08/17/2017 4:41am Pain Intensity 8 10/26/2017 8:56pm Pain Location Body Site Modifier Left 10/26/2017 10:24pm Pain Description Aching 10/26/2017 10:24pm Height 5 ft 5 in 10/26/2017 9:15pm Weight 273.99 lb 10/26/2017 9:15pm Body Mass Index 45.0 kg/m^2 10/26/2017 9:15pm Results Laboratory Results Test Name Result Units Flags Reference Collection Date/Time Result Date/ Time Comments Urine Color YELLOW YELLOW 08/08/2017 6:45am 08/08/2017 7:09am Urine Appearance CLEAR CLEAR 08/08/2017 6:45am 08/08/2017 7:09am Urine Glucose (UA) NEGATIVE mg/dL NEGATIVE 08/08/2017 6:45am 2016 7:09am Urine Bilirubin NEGATIVE NEGATIVE 08/08/2017 6:45am 08/08/2017 7: 09am Urine Ketones NEGATIVE mg/dL NEGATIVE 08/08/2017 6:45am 08/08/2017 7: 09am Urine Specific [place] 1.020 1.010-1.025 08/08/2017 6:45am 2016 7:09am Urine [...] FEW H NEGATIVE 08/08/2017 6:45am 08/08/2017 7:19am Neutrophils 63.0 % 50-65 08/17/2017 2:00am 08/17/2017 [...] Estimate NORMAL NORMAL 08/17/2017 2:00am 08/17/2017 3:22am Influenza Type A (Rapid) POSITIVE A 08/17/2017 3:30am 08/17/2017 3: 56am Influenza Type B (Rapid) NEGATIVE 08/17/2017 3:30am 08/17/2017 3: 56am Vancomycin Level Trough 12.4 mcg/mL 5.0-15.0 10/14/2017 11:00am 2017 1:00pm White Blood Count 10.2 K/uL 4.8-10.8 10/26/2017 9:48pm 10/26/2017 9: 57pm Red Blood Count 4.97 M/uL 4.20-5.40 10/26/2017 9:48pm 10/26/2017 9: 57pm Hemoglobin 12.9 gm/dL 12.0-16.0 10/26/2017 9:48pm 10/26/2017 9:57pm Hematocrit 45.2 % 37.0-47.0 10/26/2017 9:48pm 10/26/2017 9:57pm Mean Corpuscular Volume 90.8 fL 81.0-99.0 10/26/2017 9:48pm 10/26/2017 9:57pm Mean Corpuscular Hemoglobin 25.9 pg L 27.0-31.0 10/26/2017 9:48pm 2017 9:57pm Mean Corpuscular Hemoglobin Concent 28.6 g/dL L 30.0-37.0 10/26/2017 9: 48pm 10/26/2017 9:57pm Red Cell Distribution Width 17.0 % H 11.5-14.5 10/26/2017 9:48pm 2017 9:57pm Platelet Count 286 K/uL 130-400 10/26/2017 9:48pm 10/26/2017 9:57pm Mean Platelet Volume 7.9 fL 7.4-10.4 10/26/2017 9:48pm 10/26/2017 9: 57pm Neutrophils (%) (Auto) 64.0 % 42.2-75.2 10/26/2017 9:48pm 10/26/2017 9: 57pm Lymphocytes (%) (Auto) 28.7 % 20.5-51.1 10/26/2017 9:48pm 10/26/2017 9: 57pm Monocytes (%) (Auto) 4.1 % 0-10 10/26/2017 9:48pm 10/26/2017 9:57pm Eosinophils (%) (Auto) 2.3 % 0-3 10/26/2017 9:48pm 10/26/2017 9:57pm Basophils (%) (Auto) 0.9 % 0.0-1.0 10/26/2017 9:48pm 10/26/2017 9:57pm Neutrophils # (Auto) 6.5 K/uL 2.0-6.9 10/26/2017 9:48pm 10/26/2017 9: 57pm Lymphocytes # (Auto) 2.9 K/uL 1.2-3.4 10/26/2017 9:48pm 10/26/2017 9: 57pm Monocytes # (Auto) 0.4 K/uL 0.1-0.6 10/26/2017 9:48pm 10/26/2017 9: 57pm Eosinophils # (Auto) 0.2 K/uL 0.0-0.7 10/26/2017 9:48pm 10/26/2017 9: 57pm Basophils # (Auto) 0.1 K/uL 0.0-0.2 10/26/2017 9:48pm 10/26/2017 9: 57pm Prothrombin Time 11.1 SECONDS 9.10-11.20 10/26/2017 9:48pm 10/26/2017 10:13pm Prothromb Time International Ratio 1.08 0.9-1.1 10/26/2017 9:48pm 10/2017 10:13pm PLEASE NOTE REFERENCE RANGE Random Glucose 136 mg/dL H 70-110 10/26/2017 9:48pm 10/26/2017 10:13pm Blood Urea Nitrogen 14 mg/dL 7-18 10/26/2017 9:48pm 10/26/2017 10:13pm Creatinine 0.7 mg/dL 0.55-1.02 10/26/2017 9:48pm 10/26/2017 10:13pm Sodium Level 143 mEq/L 136-145 10/26/2017 9:48pm 10/26/2017 10:13pm Potassium Level 3.1 mEq/L L 3.5-5.0 10/26/2017 9:48pm 10/26/2017 10: 13pm Chloride Level 109 mEq/L H 98-107 10/26/2017 9:48pm 10/26/2017 10:13pm Carbon Dioxide Level 24.8 mEq/L 21-32 10/26/2017 9:48pm 10/26/2017 10: 13pm Calcium Level 8.9 mg/dL 8.8-10.5 10/26/2017 9:48pm 10/26/2017 10:13pm Total Protein 7.7 gm/dL 6.4-8.2 10/26/2017 9:48pm 10/26/2017 10:28pm Albumin 2.9 gm/dL L 3.4-5.0 10/26/2017 9:48pm 10/26/2017 10:28pm Total Bilirubin 0.20 mg/dL 0.00-1.00 10/26/2017 9:48pm 10/26/2017 10: 28pm Aspartate Amino Transf (AST/SGOT) 13 U/L L 15-37 10/26/2017 9:48pm 10/26 10:28pm Alanine Aminotransferase (ALT/SGPT) 13 U/L 12-78 10/26/2017 9:48pm 10/2017 10:28pm Total Alkaline Phosphatase 134 U/L H 46-116 10/26/2017 9:48pm 2017 10:28pm Total Creatine Kinase 41 U/L 26-192 10/26/2017 9:48pm 10/26/2017 10: 28pm B-Type Natriuretic Peptide 59 pg/mL 10-227 10/26/2017 9:48pm 2017 10:28pm 50-75 years of age NT-proBNP values <300 [...] absence of renal failure. Creatine Kinase MB 0.8 ng/mL 0-3.6 10/26/2017 9:48pm 10/26/2017 10: 28pm Myoglobin 29.0 NG/ML 10.5-92.5 10/26/2017 9:48pm 10/26/2017 10:28pm Troponin I < 0.02 ng/mL 0.0-0.2 10/26/2017 9:48pm 10/26/2017 10:28pm Glomerular Filtration Rate Calc 85.1 mL/min 10/26/2017 9:48pm 2017 10:13pm Procedures Procedure Status Date Provider(s) URINALYSIS AUTO W/SCOPE Completed 08/08/17 URINE CULTURE/COLONY COUNT Completed 08/08/17 CHEST X-RAY 1 VIEW FRONTAL Completed 08/17/17 COMPREHEN METABOLIC PANEL Completed 08/17/17 BL SMEAR W/DIFF WBC COUNT Completed 08/17/17 COMPLETE CBC AUTOMATED Completed 08/17/17 INFLUENZA ASSAY W/OPTIC Completed 08/17/17 INFLUENZA ASSAY W/OPTIC Completed 08/17/17 ELECTROCARDIOGRAM TRACING Completed 08/17/17 RHYTHM ECG WITH REPORT Completed 08/17/17 AIRWAY INHALATION TREATMENT Completed 08/17/17 EMERGENCY DEPT VISIT Completed 08/17/17 ALS DEFIBRILLATION SUPPLIES Completed 08/17/17 GROUND MILEAGE Completed 08/17/17 ALS1-EMERGENCY Completed 08/17/17 ALBUTEROL NON-COMP CON Completed 08/17/17 ASSAY OF VANCOMYCIN Completed 10/10/17 ASSAY OF VANCOMYCIN Completed 10/12/17 ASSAY OF VANCOMYCIN Completed 10/14/17 ASSAY OF CREATININE Completed 10/14/17 ASSAY OF UREA NITROGEN Completed 10/14/17 Portable x-ray of chest Completed 08/17/17 LATASHA GONZALEZ D.O. Portable x-ray of chest Completed 10/26/17 HAILY EM DO Encounters Encounter Location Arrival/Admit Date Discharge/Depart Date Attending Provider Departed Emergency Room [place] 10/26/17 9:15pm 10/26/17 11:48pm HAILY EM DO Registered Referred [place] 10/14/17 12:02pm ESTEPHANIE MACHADO MD Registered Clinic [place] 10/12/17 11:32am ESTEPHANIE MACHADO MD Registered Referred [place] 10/10/17 12:40pm ESTEPHANIE MACHADO MD Departed Emergency Room [place] 08/17/17 1:57am 08/17/17 5:15am LATASHA GONZALEZ D.O. Registered Referred [place] 08/08/17 10:29pm ESTEPHANIE MACHADO MD Recent Diagnosis
--- OUTSIDE RECORDS SUMMARY | 2018-07-10 18:53 | XMS REPORT | Continuity of Care Document ---
Author Author [facility] Organization [facility] Address [facility] [address] [place] [address] Phone Unavailable Support Name Relationship Address Phone CARMELINA CHRISTINE DO Caregiver [address] [place] [address] Unavailable Chief Complaint and Reason for Visit Chief Complaint COUGH URI SYMPTOMS Reason for Visit [id number] Problems Active Problems Medical Problem Onset Date Status Acute exacerbation of chronic obstructive pulmonary disease (COPD) Unknown Acute Medications Current Home Medications Medication Dose Units Route Directions Days/Qty Instructions Start Date Levofloxacin 750 Mg 750 Mg Oral Daily 10 06/21/15 Albuterol Sulfate 2.5 Mg/3 Ml 2.5 Mg Inhalation Every 4-6 Hours As Needed as needed for Shortness Of Breath 30 As needed for Wheezing/Asthma 06/21/15 Prednisone 10 Mg 50 Mg Oral Daily 25 06/21/15 Social History No social history. Hospital Discharge Instructions No hospital discharge instructions. Plan of Care Discharge Date 06/21/15 8:05am Condition at Discharge Stable Instructions/Education Provided COPD Exacerbation, Commercial Kitchen Service Technician (GEN) Prescriptions See Medication Section Referrals ESTEPHANIE MACHADO MD - 2-3 Days Functional Status Query Response Date Recorded Patient Behavior Appropriate Dependent June 21, 2015 5:04am Allergies, Adverse Reactions, Alerts No allergy information available. Immunizations Name Given Type Hx Influenza Vaccination N DOES NOT WANT Historical Hx Pneumococcal Vaccination Y OCTOBER 2014 Historical Vital Signs Acute Vital Signs Vital Response Date/Time Temperature (Fahrenheit) 98.0 degrees F (97.6 - 99.5) 06/21/2015 7:59am Temperature Source Temporal Artery 06/21/2015 7:59am Pulse Rate (adult) 89 bpm (60 - 90) 06/21/2015 7:59am Respiratory Rate 22 bpm (12 - 24) 06/21/2015 7:59am Blood Pressure 149/84 mm Hg 06/21/2015 7:59am O2 Sat by Pulse Oximetry 93 % (90 - 100) 06/21/2015 7:59am Oxygen Delivery Method 06/21/2015 7:59am Pain Intensity 9 06/21/2015 5:04am Pain Location Body Site Modifier 06/21/2015 5:50am Pain Duration > 6 Hours 06/21/2015 5:04am Height 5 ft 3 in Weight 330 lb Body Mass Index 58.0 kg/m^2 Results Laboratory Results Test Name Result Units Flags Reference Collection Date/Time Result Date/ Time Comments White Blood Count 15.9 K/uL H 4.8-10.8 06/21/2015 5:30am 06/21/2015 5: 41am Red Blood Count 4.68 M/uL 4.20-5.40 06/21/2015 5:30am 06/21/2015 5: 41am Hemoglobin 14.7 gm/dL 12.0-16.0 06/21/2015 5:30am 06/21/2015 5:41am Hematocrit 44.6 % 37.0-47.0 06/21/2015 5:30am 06/21/2015 5:41am Mean Corpuscular Volume 95.3 fL 81.0-99.0 06/21/2015 5:30am 06/21/2015 5:41am Mean Corpuscular Hemoglobin 31.5 pg H 27.0-31.0 06/21/2015 5:30am 2014 5:41am Mean Corpuscular Hemoglobin Concent 33.0 g/dL 30.0-37.0 06/21/2015 5: 30am 06/21/2015 5:41am Red Cell Distribution Width 14.5 % 11.5-14.5 06/21/2015 5:30am 2014 5:41am Platelet Count 235 K/uL 130-400 06/21/2015 5:30am 06/21/2015 5:41am Mean Platelet Volume 7.2 fL L 7.4-10.4 06/21/2015 5:30am 06/21/2015 5: 41am Neutrophils (%) (Auto) 76.4 % H 42.2-75.2 06/21/2015 5:30am 06/21/2015 5 :41am Lymphocytes (%) (Auto) 18.0 % L 20.5-51.1 06/21/2015 5:30am 06/21/2015 5 :41am Monocytes (%) (Auto) 3.3 % 1.7-9.3 06/21/2015 5:30am 06/21/2015 5:41am Eosinophils (%) (Auto) 2.0 % 0-3 06/21/2015 5:30am 06/21/2015 5:41am Basophils (%) (Auto) 0.3 % 0.0-1.0 06/21/2015 5:30am 06/21/2015 5:41am Neutrophils # (Auto) 12.1 K/uL H 2.0-6.9 06/21/2015 5:30am 06/21/2015 5: 41am Lymphocytes # (Auto) 2.9 K/uL 1.2-3.4 06/21/2015 5:30am 06/21/2015 5: 41am Monocytes # (Auto) 0.5 K/uL 0.1-0.6 06/21/2015 5:30am 06/21/2015 5: 41am Eosinophils # (Auto) 0.3 K/uL 0.0-0.7 06/21/2015 5:30am 06/21/2015 5: 41am Basophils # (Auto) 0.1 K/uL 0.0-0.2 06/21/2015 5:30am 06/21/2015 5: 41am Random Glucose 108 mg/dL 70-110 06/21/2015 5:30am 06/21/2015 6:04am Blood Urea Nitrogen 11 mg/dL 7-18 06/21/2015 5:30am 06/21/2015 6:04am Creatinine 0.9 mg/dL 0.55-1.02 06/21/2015 5:30am 06/21/2015 6:04am Sodium Level 138 mEq/L 136-145 06/21/2015 5:30am 06/21/2015 6:04am Potassium Level 3.9 mEq/L 3.5-5.0 06/21/2015 5:30am 06/21/2015 6:04am Chloride Level 106 mEq/L 98-107 06/21/2015 5:30am 06/21/2015 6:04am Carbon Dioxide Level 25.6 mEq/L 21-32 06/21/2015 5:30am 06/21/2015 6: 04am Calcium Level 8.3 mg/dL L 8.8-10.5 06/21/2015 5:30am 06/21/2015 6:04am Total Protein 7.3 gm/dL 6.4-8.2 06/21/2015 5:30am 06/21/2015 6:04am Albumin 2.8 gm/dL L 3.4-5.0 06/21/2015 5:30am 06/21/2015 6:04am Total Bilirubin 0.30 mg/dL 0.00-1.00 06/21/2015 5:30am 06/21/2015 6: 04am Aspartate Amino Transf (AST/SGOT) 18 U/L 15-37 06/21/2015 5:30am 2014 6:04am Alanine Aminotransferase (ALT/SGPT) 18 U/L 12-78 06/21/2015 5:30am 6:04am Total Alkaline Phosphatase 128 U/L H 46-116 06/21/2015 5:30am 2014 6:04am Creatine Kinase MB < 0.5 NG/ML 0-3.6 06/21/2015 5:30am 06/21/2015 6: 04am Myoglobin 33.0 NG/ML 10.5-92.5 06/21/2015 5:30am 06/21/2015 6:04am Troponin I 0.0 NG/ML 0.0-0.2 06/21/2015 5:30am 06/21/2015 6:04am Glomerular Filtration Rate Calc 68.4 mL/min 06/21/2015 5:30am 2014 6:04am Procedures Procedure Status Date Provider(s) Portable x-ray of chest Completed 06/21/15 CARMELINA CHRISTINE DO Encounters Encounter Location Arrival/Admit Date Discharge/Depart Date Attending Provider Departed Emergency Room [place] 06/21/15 5:07am 06/21/15 8:05am CARMELINA CHRISTINE DO Recent Diagnosis
--- OUTSIDE RECORDS SUMMARY | 2018-07-10 18:53 | XMS REPORT | Continuity of Care Document ---
Author Author [facility] Organization [facility] Address [facility] [address] [place] [address] Phone Unavailable Support Name Relationship Address Phone ESTEPHANIE MACHADO MD Caregiver [address] [place] [address] SHANELLE GARCIA MD Caregiver [address] [place] [address] NICK BECK MD Caregiver [address] [place] [address] NICK BECK MD Caregiver [address] [place] [address] SHMUEL FRANCOIS Next Of Kin [address] [place], [place] [address] Insurance Providers Guarantor Misa Lund Address [address] [place] [address] Payer Medicare Policy Number [id number] Subscriber's Name Misa Lund Relationship 18 Self / Same As Patient Payer [facility] Policy Number [id number] Subscriber's Name Misa Lund Relationship 18 Self / Same As Patient Advance Directives Directive Response Recorded Date/Time Do you have an Advanced Directive? No 07/10/15 10:01pm Advance Directives No 06/30/17 4:22am Living Will No 06/30/17 4:22am Health Care Proxy No 06/30/17 4:22am Power of [employer] for Health Care No 06/30/17 4:22am Organ, Tissue, or Eye Donor No 06/30/17 4:22am Do you have a signed organ donor card? No 12/08/15 9:31pm Chief Complaint and Reason for Visit Chief Complaint UTI Reason for Visit Acute exacerbation of chronic obstructive pulmonary disease ( COPD) Problems Medical Problem Onset Date Status Acute [...] Past Problems Medical Problem Onset Date Status Urinary tract infection Unknown Acute Medications Current Home Medications Medication Dose Units Route Directions Days Qty Instructions Start Date Acetaminophen (Tylenol 500 Mg Tab*) 500 Mg Tablet 1,000 Mg ORAL Every 4 Hours As Needed Acidophilus/Pectin, [place] (Acidophilus-Pectin [place]) 1 Each Tablet 1 Tab ORAL Daily Al Hydrox/Mg Hydrox/Simethicone (Mylanta Liq*) 355 Ml Oral.susp 30 Ml ORAL Daily as needed for Prn Albuterol (Proair 17GM Hfa Inhaler*) 1 Puff Inh 1-2 Puff Inhalation Every 4 Hours As Needed INHALE 1-2 PUFFS Amlodipine Besylate (Norvasc*) 5 Mg Tablet 5 Mg ORAL Daily 30 Tablet Aripiprazole (Abilify*) 10 Mg Tablet 10 Mg ORAL Bedtime 30 Tablet Baclofen (Baclofen*) 10 Mg Tablet 10 Mg ORAL Four Times Daily 15 Tablet Benzedrex 2 Inh Every 2 Hours As Needed for Nasal Congestion Buspirone Hcl (Buspar) 10 Mg Tab 15 Mg ORAL Three Times A Day Carbamazepine (Tegretol 200 Mg Tab*) 200 Mg Tablet 200 Mg ORAL Twice A Day 60 Tablet Carvedilol (Coreg 6.25 Mg Tab*) 6.25 Mg Tablet 6.25 Mg ORAL Twice A Day 60 Tablet Ceftriaxone Sodium (Ceftriaxone*) 1 G/Vial Vial 1 Gm INTRAVENOUS Daily 6 Days Docusate Sodium (Colace 100 Mg Cap*) 100 Mg Capsule 100 Mg ORAL Twice A Day as needed for Constipation 60 Cap Duloxetine Hcl (Cymbalta*) 30 Mg Capsule.dr 30 Mg ORAL Bedtime 30 Cap Duloxetine Hcl (Cymbalta*) 60 Mg Capsule.dr 60 Mg ORAL Daily Am 30 Cap Duoneb 0.5/2.5 1 Every 6 Hours As Needed for Wheezing Gabapentin (Neurontin 300 Mg Cap*) 300 Mg Capsule 600 Mg ORAL Three Times A Day 90 Cap Guaifenesin/Dextromethorphan (Robitussin Dm Max Liquid*) 118 Ml Liquid 10 Ml ORAL Every 4 Hours as needed for Cough Hydroxyzine Pamoate 50 Mg ORAL Daily As Needed Isosorbide Mononitrate (Imdur-Er 30 Mg*) 30 Mg Tabcr 60 Mg ORAL Daily Levothyroxine Sodium (Synthroid 200 Mcg Tab*) 200 Mcg Tablet 200 Mcg ORAL Before Breakfast 30 Tablet Lidocaine Ointment Four Times Daily As Needed APPLY TO AFFECTED AREAS Loperamide Hcl (Imodium A-D) 2 Mg Capsule As Needed TAKE 2 CAPS AFTER 3RD LOOSE STOOL, THEN 1 AFTER EACH LOOSE MIKA, MAX 6 CAPS IN 24 HOURS Naphazoline Hcl/Pheniramine (Allergy Eye Drops) 15 Ml Drops 2 Drop OPHTHALMIC Four Times Daily as needed for Allergy Symptoms Nasal Irrigation As Needed 1/4 TSP SALT AND 1/4 TEASPOON BAKING SODA IN 8 OZ WARM WATER. WHEN IRRIGATION LEAN OVER SINK, DIRECT BULB SYRINGE IN TOWARD EYE, AND FLUSH REPEATEDLY PRN SINUS/NASAL CARE Nebulizer Inhalation Four Times Daily NEBULIZER WITH SALINE INH QID AND PRN Nebulizer Inhalation As Needed NEBULIZER WITH SALINE INH QID AND PRN Nitroglycerin (Nitrostat*) 0.4 Mg Tab.subl 0.4 Mg SUBLINGUAL as needed for Chest Pain DISSOLVE 1 TAB UNDER TONGUE EVERY 5 MINUTES X 3 DOSES Normal Saline (Normal Saline Flush) 5 Ml Disp.syrin 5 Ml INTRAVENOUS Two Times Daily As Needed INHALE ORALLY VIA NEBULIZER- INSERT NS INTO NASAL NEB TO FLUSH OUT NARES Nystatin (Nystatin Cream*) 15 Gm Cr 15 Gm EXTRACORPOREAL Three Times A Day O2 2 L NASAL At Bedtime As Needed O2 AT 2L NEEDED AT HS Omeprazole Magnesium 20 Mg Capsule.dr 20 Mg ORAL Twice A Day Phenol (Chloraseptic*) 177 Ml [place].pump 1 [place] ORAL Every 2 Hours As Needed Replens Vag Gel 3 Times A Week ADMINISTER ON SATURDAY, SATURDAY , AND FRIDAYS Topiramate (Topamax 100 Mg Tab*) 100 Mg Tablet 100 Mg ORAL Twice A Day 30 Tablet Tramadol Hcl (Ultram 50 Mg Tab*) 50 Mg Tablet 50 Mg ORAL Four Times Daily 15 Tablet Trazodone Hcl (Desyrel*) 100 Mg Tablet 25 Mg ORAL Bedtime as needed for Insomnia Trolamine Salicylate (Aspercreme*) 90 Gm Tube 90 Gm TOPICAL 2-3 Times Daily APPLY TO PAINFUL AREAS 2-3X/DAY PRN PAIN Tylenol Arthritis 650 Mg ORAL Twice A Day Dalia Boots UNNA BOOTS TO BLE CHANGE Q 5-7 DAYS Vancomycin Hcl 100 Gm Bulkbaginj 200 Mg Inhalation Twice A Day Warfarin 11 Mg ORAL Daily Past Home Medications Medication Directions Ordered Status Acetaminophen/Hydrocodone Bitart ([place] 7.5-325 Tab*) 1 Tab Tablet, 1 Each Oral Every 4 Hrs As Needed Pain as needed for Pain Discontinued Acetaminophen/Hydrocodone Bitart ([place] 7.5-325 Tab*) 1 Tab Tablet, 1 Each Oral Every 6 Hrs As Needed For Pain as needed for Pain 10/22/16 Discontinued Acetaminophen/Hydrocodone Bitart ([place] 7.5-325 Tab*) 1 Tab Tablet, 1 Each Oral Every 4 Hrs As Needed Pain for Pain Discontinued Al Hydrox/Mg Hydrox/Simethicone (Maalox Suspension*) 148 [...] Daily Discontinued Atrovent Estefania 0.0.6% , 2 [place] Nasal Twice A Day Discontinued Biotin 2,500 Mcg Capsule, 5000 Mcg [...] 6.25 Mg Oral Twice A Day Discontinued Cetirizine Hcl (Zyrtec) 10 Mg Tab.rapdis, 10 Mg Oral Discontinued Cyclobenzaprine Hcl (Cyclobenzaprine Hcl*) 10 Mg Tablet, 10 Mg Oral Twice A Day 03/04/17 Discontinued Cyclobenzaprine Hcl (Cyclobenzaprine Hcl*) 10 Mg Tablet, 10 Mg Oral Three Times A Day Discontinued Cyclobenzaprine Hcl (Cyclobenzaprine Hcl*) 10 Mg Tablet, 10 Mg Oral Twice A Day 05/02/16 Discontinued Diazepam (Valium 5 Mg Tab*) 5 Mg Tablet, 5 Mg Oral Twice A Day 03/11/17 Discontinued Duloxetine Hcl (Cymbalta*) 30 Mg Capsule.dr, [...] Tablet, 50 Mg Oral As Needed Discontinued Ipratropium [place] (Atrovent*) 0.5 Mg/2.5 Ml Nebu, 0.5-2.5 Mg [...] Topical Four Times Daily Prn Pain Discontinued Loperamide Hcl 1 Mg/5 Ml Liquid, [...] Gm Oint, 22 Gm Extracorporeal Daily Discontinued Nitroglycerin (Nitrostat) 0.3 Mg Tab.subl, 1 Tab Sublingual Once as needed for Chest Pain Discontinued Nitroglycerin (Nitrostat*) 0.4 Mg Tab.subl, 0.4 Mg Sublingual As Needed for Chest Pain Discontinued Nitroglycerin (Nitrostat*) 0.4 Mg Tab.subl, 0.4 Mg Sublingual As Needed Discontinued Nystatin Powder , Unknown Dose Topical [...] Pain 02/22/17 Discontinued Phenol (Chloraseptic) 20 Ml [place], 20 Ml Oropharyngeal as needed for Throat Pain Discontinued Phenol/Glycerin (Chloraseptic Max [place]) 30 Ml [place], 5 [place] Nasal As Needed Discontinued Potassium Chloride (K-Dur [...] 4-6 Hours as needed for Nausea/Vomiting Discontinued Robitussin Dm , 10 Ml Oral [...] Hours As Needed Pain Discontinued Trazodone Hcl , 25 Mg Oral Daily Discontinued Trazodone Hcl (Desyrel*) 150 Mg Tablet, 150 Mg Oral Bedtime Discontinued Trazodone Hcl (Desyrel*) 150 Mg Tablet, 150 Mg Oral Bedtime Discontinued Warfarin Sodium (Coumadin [...] Not Applicable Not Applicable Alcohol Use none 06/30/2017 12:52am Not Applicable Not Applicable Drug Use none 06/30/2017 12:52am Not Applicable Not Applicable Smoking Status Start Date Stop Date Current every day smoker Hospital Discharge Instructions No hospital discharge instruction information available. Plan of Care Discharge Date 07/01/17 11:48am Disposition 01 HOME, S[facility]IOR [facility]ARE,ASSISTED LIVING Instructions/Education Provided Urinary Tract Infection in Women (DC) Prescriptions See Medication Section Functional Status Query Response Date Recorded Aris Coma Scale Total 15 July 01, 2017 8:24am Patient Behavior Appropriate Cooperative July 01, 2017 8:24am Allergies, Adverse Reactions, Alerts Allergen Type Severity Reaction Status Last Updated IODINE Allergy Unknown Active 02/19/17 Penicillin Allergy Unknown Active 02/19/17 Tetracyclines Allergy Unknown Active 02/19/17 SULFA (SULFONAMIDE [...] 02/19/17 Mushrooms Allergy Unknown Active 02/19/17 Immunizations Query Response on File Recorded Date/Time Hx Diphtheria, Pertussis, Tetanus Vaccination Unknown 06/30/17 12:15am Hx Influenza Vaccination No 06/30/17 4:22am Hx Pneumococcal Vaccination N - 06/201406/30/17 4:22am Hx Tetanus, Diphtheria Vaccination Yes 09/22/16 8:27pm Hx Tetanus Toxoid Vaccination Yes 09/22/16 8:27pm Vital Signs Acute Vital Signs Vital Response Date/Time Temperature (Fahrenheit) 98.5 degrees F (97.6 - 99.5) 07/01/2017 10:22am Temperature Source Temporal Artery 07/01/2017 10:22am Pulse Rate (adult) 72 bpm (60 - 90) 07/01/2017 10:22am Respiratory Rate 20 bpm (12 - 24) 07/01/2017 10:22am Blood Pressure 140/72 mm Hg 07/01/2017 10:22am O2 Sat by Pulse Oximetry 94 % (90 - 100) 07/01/2017 10:22am Oxygen Delivery Method Room Air 06/30/2017 3:40am Oxygen Flow Rate 2.0 L/min 07/01/2017 7:49am Pain Intensity 3 07/01/2017 8:24am Pain Location Body Site Modifier Lower 07/01/2017 8:24am Pain Description Aching 06/30/2017 5:13pm Height 5 ft 5 in 06/30/2017 12:15am Weight 289.69 lb 06/30/2017 3:48am Body Mass Index 48.0 kg/m^2 06/30/2017 3:48am Results Laboratory Results Test Name Result Units Flags Reference Collection Date/Time Result Date/ Time Comments Direct Bilirubin < 0.05 mg/dL 0.00-0.30 04/10/2017 12:06pm 04/10/2017 4 :30pm Indirect Bilirubin 0.17 mg/dL 0-0.70 04/10/2017 12:06pm 04/10/2017 4: 30pm Free Thyroxine (T4) Calculated 0.87 ng/dL 0.76-1.46 04/10/2017 12:06pm 04/10/2017 4:31pm Thyroid Stimulating Hormone (TSH) 16.48 uIU/ml H 0.36-3.74 04/10/2017 12: 06pm 04/10/2017 4:30pm Urine Amorphous Sediment 3+ H NEGATIVE 04/18/2017 7:20pm 04/18/2017 10 :55pm Prothrombin Time 13.7 SECONDS H 9.10-11.20 05/26/2017 6:26pm 05/26/2017 8:03pm Prothromb Time International Ratio 1.34 H 0.9-1.1 05/26/2017 6:26pm 8:03pm PLEASE NOTE REFERENCE RANGE Cholesterol Level 235 mg/dL H 120-200 06/08/2017 7:00am 06/08/2017 8: 15am Triglycerides Level 200 mg/dL 30-200 06/08/2017 7:00am 06/08/2017 8: 15am HDL Cholesterol 35 mg/dL 35-60 06/08/2017 7:0006/08/2017 8:15am LDL Cholesterol 160 mg/dL H 0-130 06/08/2017 7:0006/08/2017 8:15am Thyroid Stimulating Hormone (TSH) 3.22 uIU/ml 0.36-3.74 06/08/2017 7: 0006/08/2017 8:15am White Blood Count 8.5 K/uL 4.8-10.8 07/01/2017 5:0307/01/2017 6: 10am Red Blood Count 4.56 M/uL 4.20-5.40 07/01/2017 5:0307/01/2017 6: 10am Hemoglobin 12.2 gm/dL 12.0-16.0 07/01/2017 5:07/01/2017 6:10am Hematocrit 39.2 % 37.0-47.0 07/01/2017 5:07/01/2017 6:10am Mean Corpuscular Volume 86.0 fL 81.0-99.0 07/01/2017 5:07/01/2017 6:10am Mean Corpuscular Hemoglobin 26.8 pg L 27.0-31.0 07/01/2017 5:2016 6:10am Mean Corpuscular Hemoglobin Concent 31.1 g/dL 30.0-37.0 07/01/2017 5: 07/01/2017 6:10am Red Cell Distribution Width 16.8 % H 11.5-14.5 07/01/2017 5:2016 6:10am Platelet Count 264 K/uL 130-400 07/01/2017 5:07/01/2017 6:10am Mean Platelet Volume 9.0 fL 7.4-10.4 07/01/2017 5:07/01/2017 6: 10am Neutrophils (%) (Auto) 75.1 % 42.2-75.2 07/01/2017 5:07/01/2017 6: 10am Lymphocytes (%) (Auto) 19.5 % L 20.5-51.1 07/01/2017 5:07/01/2017 6 :10am Monocytes (%) (Auto) 3.5 % 1.7-9.3 07/01/2017 5:0307/01/2017 6:10am Eosinophils (%) (Auto) 1.5 % 0-3 07/01/2017 5:0307/01/2017 6:10am Basophils (%) (Auto) 0.4 % 0.0-1.0 07/01/2017 5:0307/01/2017 6:10am Neutrophils # (Auto) 6.4 K/uL 2.0-6.9 07/01/2017 5:0307/01/2017 6: 10am Lymphocytes # (Auto) 1.7 K/uL 1.2-3.4 07/01/2017 5:0307/01/2017 6: 10am Monocytes # (Auto) 0.3 K/uL 0.1-0.6 07/01/2017 5:03am 07/01/2017 6: 10am Eosinophils # (Auto) 0.1 K/uL 0.0-0.7 07/01/2017 5:0307/01/2017 6: 10am Basophils # (Auto) 0.0 K/uL 0.0-0.2 07/01/2017 5:0307/01/2017 6: 10am Random Glucose 141 mg/dL H 70-110 07/01/2017 5:03am 07/01/2017 6:09am Lactic Acid Level 1.2 mmol/L 0.4-2 06/30/2017 1:40am 06/30/2017 1:03am Blood Urea Nitrogen 10 mg/dL 7-18 07/01/2017 5:0307/01/2017 6:09am Creatinine 0.7 mg/dL 0.55-1.02 07/01/2017 5:0307/01/2017 6:09am Sodium Level 142 mEq/L 136-145 07/01/2017 5:0307/01/2017 6:09am Potassium Level 3.6 mEq/L 3.5-5.0 07/01/2017 5:0307/01/2017 6:09am Chloride Level 108 mEq/L H 98-107 07/01/2017 5:0307/01/2017 6:09am Carbon Dioxide Level 23.8 mEq/L 21-32 07/01/2017 5:0307/01/2017 6: 09am Calcium Level 8.9 mg/dL 8.8-10.5 07/01/2017 5:03am 07/01/2017 6:09am Phosphorus Level 3.2 mg/dL 2.7-4.5 07/01/2017 5:03am 07/01/2017 6:09am Total Protein 7.4 gm/dL 6.4-8.2 06/30/2017 1:40am 06/30/2017 1:21am Albumin 2.7 gm/dL L 3.4-5.0 07/01/2017 5:03am 07/01/2017 6:09am Total Bilirubin 0.28 mg/dL 0.00-1.00 06/30/2017 1:40am 06/30/2017 1: 21am Aspartate Amino Transf (AST/SGOT) 12 U/L L 15-37 06/30/2017 1:40am 06/30 1:21am Alanine Aminotransferase (ALT/SGPT) 15 U/L 12-78 06/30/2017 1:40am 12/2016 1:21am Total Alkaline Phosphatase 127 U/L H 46-116 07/01/2017 5:03am 2016 6:09am Lipase 97 U/L 65-230 06/30/2017 1:40am 06/30/2017 1:21am Urine Color YELLOW YELLOW 06/30/2017 12:35am 06/30/2017 1:04am Urine Appearance CLOUDY H CLEAR 06/30/2017 12:35am 06/30/2017 1:04am Urine Glucose (UA) NEGATIVE mg/dL NEGATIVE 06/30/2017 12:35am 2016 1:04am Urine Bilirubin NEGATIVE NEGATIVE 06/30/2017 12:35am 06/30/2017 1: 04am Urine Ketones NEGATIVE mg/dL NEGATIVE 06/30/2017 12:35am 06/30/2017 1: 04am Urine Specific [place] 1.015 1.010-1.025 06/30/2017 12:35am 2016 1:04am Urine Occult Blood 2+ (Moderate) H NEGATIVE 06/30/2017 12:35am 2016 1:04am URINE CULTURE ORDERED PER MEDICAL STAFF-APPROVED PROTOCOL FOR LAB. Urine pH 6.0 5.0-8.0 06/30/2017 12:35am 06/30/2017 1:04am Urine Protein NEGATIVE mg/dL NEGATIVE 06/30/2017 12:35am 06/30/2017 1: 04am Urine Urobilinogen 0.2 mg/dL E.U./dL 0.2-1.0 06/30/2017 12:35am 2016 1:04am Urine Nitrate NEGATIVE NEGATIVE 06/30/2017 12:35am 06/30/2017 1:04am Urine Leukocyte Esterase 2+ (Moderate) H NEGATIVE 06/30/2017 12:35am 06/30/2017 1:04am Urine RBC 5-10 /hpf 0 06/30/2017 12:35am 06/30/2017 1:05am Urine WBC TOO NUMEROUS TO CNT /hpf H 0-4 06/30/2017 12:35am 06/30/2017 1 :05am Urine Squamous Epithelial Cells 2-4 /hpf H 0-1 06/30/2017 12:35am 2016 1:05am Urine Bacteria 1+ H NEGATIVE 06/30/2017 12:35am 06/30/2017 1:05am Urine Mucus MODERATE H NEGATIVE 06/30/2017 12:35am 06/30/2017 1:05am Glomerular Filtration Rate Calc 85.4 mL/min 07/01/2017 5:03am 2016 6:09am Microbiology Results Procedure Source Organism/Result Collection Date/Time Result Date/Time Result Status Urine Culture Urine,Random PROTEUS MIRABILIS 06/21/2017 7:25pm 06/24/2017 8:41am Final Blood Culture Blood NO GROWTH AFTER 1 DAY 06/30/2017 1:43am 07/01/2017 2: 03am Preliminary Procedures Procedure Status Date Provider(s) APPLY MULTLAY COMPRS LWR LEG Completed 03/22/17 APPLY MULTLAY COMPRS LWR LEG Completed 03/22/17 APPLY MULTLAY COMPRS LWR LEG Completed 03/22/17 APPLY MULTLAY COMPRS LWR LEG Completed 03/22/17 APPLY MULTLAY COMPRS LWR LEG Completed 03/22/17 APPLY MULTLAY COMPRS LWR LEG Completed 03/22/17 APPLY MULTLAY COMPRS LWR LEG Completed 03/22/17 APPLY MULTLAY COMPRS LWR LEG Completed 03/22/17 APPLY MULTLAY COMPRS LWR LEG Completed 03/22/17 OT EVAL LOW COMPLEX 30 MIN Completed 03/22/17 METABOLIC PANEL TOTAL CA Completed 04/10/17 LIPID PANEL Completed 04/10/17 HEPATIC FUNCTION PANEL Completed 04/10/17 ASSAY OF FREE THYROXINE Completed 04/10/17 ASSAY THYROID STIM HORMONE Completed 04/10/17 URINALYSIS AUTO WSCOPE Completed 04/18/17 PROTHROMBIN TIME Completed 04/25/17 PROTHROMBIN TIME Completed 05/26/17 COMPREHEN METABOLIC PANEL Completed 06/08/17 LIPID PANEL Completed 06/08/17 ASSAY THYROID STIM HORMONE Completed 06/08/17 COMPLETE CBC AUTOMATED Completed 06/08/17 SCREENINGMAMMOGRAPHYDIGITAL Completed 06/18/17 URINALYSIS AUTO WSCOPE Completed 06/21/17 CULTURE AEROBIC IDENTIFY Completed 06/21/17 URINE CULTURECOLONY COUNT Completed 06/21/17 MICROBE SUSCEPTIBLE GERARDO Completed 06/21/17 Digital screening mammography of both breasts Completed 06/18/17 ESTEPHANIE MACHADO MD Computed tomography of abdomen and pelvis without contrast Completed SHANELLE GARCIA MD Encounters Encounter Location Arrival/Admit Date Discharge/Depart Date Attending Provider Discharged Inpatient [facility] 06/30/17 3:44am 07/01/17 11:48am NICK BECK MD Registered Referred [facility] 06/21/17 9:06pm ESTEPHANIE MACHADO MD Registered [facility] 06/18/17 10:02am ESTEPHANIE MACHADO MD Registered Referred [facility] 06/08/17 7:29am ESTEPHANIE MACHADO MD Registered Referred [facility] 05/26/17 6:01pm ESTEPHANIE MACHADO MD Registered Referred [facility] 04/25/17 10:30pm ESTEPHANIE MACHADO MD Registered Referred [facility] 04/18/17 10:26pm ESTEPHANIE MACHADO MD Registered Referred [facility] 04/10/17 1:16pm ESTEPHANIE MACHADO MD Discharged Recurring [facility] 03/22/17 10:25am 04/15/17 3:45pm ESTEPHANIE MACHADO MD Recent Diagnosis Acute exacerbation of chronic obstructive pulmonary disease (COPD)
--- OUTSIDE RECORDS SUMMARY | 2018-07-10 18:54 | XMS REPORT | Continuity of Care Document ---
Author Author [facility] Organization [facility] Address [facility] [address] [place] [address] Phone Unavailable Support Name Relationship Address Phone LATASHA GONZALEZ D.O. Caregiver [address] [place] [address] ESTEPHANIE MACHADO MD Caregiver [address] [place] [address] SHMUEL FRANCOIS Next Of Kin [address] [place] [address] Insurance Providers Payer Name Policy Number Subscriber Name Relationship Medicare [id number] Misa Lund 18 Self / Same As Patient [facility] [id number] Misa Lund 18 Self / Same As Patient Advance Directives Directive Response Recorded Date/Time Do you have an Advanced Directive? No 07/10/15 10:01pm Advance Directives No 11/16/16 3:46pm Living Will No 11/16/16 3:46pm Power of [facility] for Health Care No 11/16/16 3:46pm Organ, Tissue, or Eye Donor No 09/22/16 10:40pm Do you have a signed organ donor card? No 12/08/15 9:31pm Chief Complaint and Reason for Visit Chief Complaint CHEST PAIN Reason for Visit [id number] Chest pain Problems Active Problems Medical Problem Onset Date Status Acute exacerbation of chronic obstructive pulmonary disease (COPD) Unknown Acute Bipolar 1 disorder Unknown Acute Bronchospasm Unknown Acute COPD (chronic obstructive pulmonary disease) Unknown Acute Chest pain Unknown Acute Chest wall pain Unknown Acute Dyspnea Unknown Acute Fall Unknown Acute GERD (gastroesophageal reflux disease) Unknown Acute Knee pain, right Unknown Acute Lumbar strain Unknown Acute Obesity (BMI 35.0-39.9 without comorbidity) [...] Oral Twice A Day 60 07/23/15 Acidophilus/Pectin, [place] 1 Each 1 Tab Oral Daily 07/23/15 Acetaminophen 500 Mg 1,000 Mg Oral Every 4 Hours As Needed 05/02/16 Amlodipine Besylate 5 Mg 5 Mg Oral Bedtime 30 09/22/16 Levothyroxine Sodium 200 Mcg 200 Mcg Oral Before Breakfast 30 09/22/16 Isosorbide Mononitrate 30 Mg 60 Mg Oral Bedtime 11/16/16 [Atrovent Estefania 0.0.6%] 2 [place] Nasal Twice A Day 11/16/16 Buspirone Hcl [...] Oral Every Other Day 09/22/16 Discontinued Ipratropium [place] 0.5 Mg/2.5 Ml Nebu, 0.5-2.5 Mg Inhalation Twice A Day Discontinued Topiramate 100 Mg Tablet, 100 Mg Oral Twice A Day 09/22/16 Discontinued Sucralfate 1 G Tablet, 1 Gm Oral Four Times Daily 09/22/16 Discontinued Phenol/Glycerin 30 Ml [place], 5 [place] Nasal As Needed 09/22/16 Discontinued Hydroxyzine Hcl [...] Use Cigarettes 05/02/2016 3:40pm Drug Use none 02/19/2017 2:20am Employment Unemployeed 02/19/2017 2:20am Query Response Start Date Stop Date Smoking Status Current every day smoker Hospital Discharge Instructions No hospital discharge instructions. Plan of Care Discharge Date 02/19/17 2:50am Condition at Discharge Stable Instructions/Education Provided Chest Pain (DC) Prescriptions See Medication Section Referrals ESTEPHANIE MACHADO MD - Additional Instructions/Education Do your best to discontinue smoking. If your chest pain returns, discuss further treatment with your doctor especially since your heart catheter was normal. Functional Status Query Response Date Recorded Aris Coma Scale Total 15 February 19, 2017 12:40am Patient Behavior Cooperative February 19, 2017 12:40am Allergies, Adverse Reactions, Alerts Allergen Type Severity Reaction Status Last Updated IODINE Allergy Unknown Active 02/19/17 Penicillin Allergy Unknown Active 02/19/17 Cephalosporins Allergy Unknown Active 02/19/17 Tetracyclines Allergy Unknown Active 02/19/17 SULFA (SULFONAMIDE ANTIBIOTICS) Allergy Unknown Active 02/19/17 Morphine Allergy Unknown Active 02/19/17 Codeine Allergy Unknown Active 02/19/17 Propoxyphene Allergy Unknown Active 02/19/17 Aspirin Allergy Unknown Active 02/19/17 Erythromycin base Allergy Unknown Active 02/19/17 Diphenhydramine Allergy Unknown Active 02/19/17 Ketorolac Allergy Unknown Active 02/19/17 Banana Allergy Unknown Active 02/19/17 Fish Allergy Unknown Active 02/19/17 Mushrooms Allergy Unknown Active 02/19/17 Immunizations Name Given Type Hx Diphtheria, Pertussis, Tetanus Vaccination Unknown Historical Hx Influenza Vaccination No Historical Hx Pneumococcal Vaccination No Historical Hx Tetanus, Diphtheria Vaccination Yes Historical Hx Tetanus Toxoid Vaccination Yes Historical Vital Signs Acute Vital Signs Vital Response Date/Time Temperature (Fahrenheit) 97.7 degrees F (97.6 - 99.5) 02/19/2017 2:41am Temperature Source Temporal Artery 02/19/2017 2:41am Pulse Rate (adult) 68 bpm (60 - 90) 02/19/2017 2:41am Respiratory Rate 19 bpm (12 - 24) 02/19/2017 2:41am Blood Pressure 119/70 mm Hg 02/19/2017 2:41am O2 Sat by Pulse Oximetry 94 % (90 - 100) 02/19/2017 2:41am Oxygen Delivery Method 02/19/2017 2:41am Oxygen Flow Rate 2 L/min 02/19/2017 12:40am Pain Intensity 0 02/19/2017 12:08am Pain Location Body Site Modifier 02/07/2017 11:42pm Pain Description 02/07/2017 11:42pm Pain Duration 15-30 Minutes 02/07/2017 11:42pm Height 5 ft 3 in Weight 310 lb Body Mass Index 55.0 kg/m^2 Results Pending Laboratory Results Test Name [...] GROUND MILEAGE Completed 02/11/17 [id number] Completed 02/11/17 Portable x-ray of chest Completed 01/04/17 SHERIF SANCHEZ M.D. Portable x-ray of chest Completed 02/07/17 ORION BOSE MD Portable x-ray of chest Completed 02/19/17 LATASHA GONZALEZ D.O. Encounters Encounter Location Arrival/Admit Date Discharge/Depart Date Attending Provider Departed Emergency Room [facility] 02/19/17 12:36am 02/19/17 2:50am LATASHA GONZALEZ D.O. Departed Emergency Room [facility] 02/11/17 9:49pm 02/11/17 10:35pm LATASHA GONZALEZ D.O. Departed Emergency Room [facility] 02/07/17 11:23pm 02/08/17 1:15am ORION BOSE MD Departed Emergency Room [facility] 02/05/17 11:00pm 02/05/17 11:50pm HAILY EM DO Departed Emergency Room [facility] 01/04/17 9:20pm 01/05/17 12:15am SHERIF SANCHEZ M.D. Registered Referred [facility] 12/07/16 4:15pm JAY JAY WREN APRN Recent Diagnosis
--- OUTSIDE RECORDS SUMMARY | 2018-07-10 18:54 | XMS REPORT | Continuity of Care Document ---
Author Author [facility] Organization [facility] Address [facility] [address] [place] [address] Phone Unavailable Support Name Relationship Address Phone ESTEPHANIE MACHADO MD Caregiver [address] [place] [address] CALIXTO GIBBONS MD Caregiver [address] [place] [address] Unavailable SHMUEL FRANCOIS Next Of Kin [address] [place], [place] [address] Insurance Providers Guarantor Misa Lund Address [address] [place] [address] Payer Medicare Policy Number [id number] Subscriber's Name Misa Lund Relationship 18 Self / Same As Patient Payer [facility] Policy Number [id number] Subscriber's Name Misa Lund Relationship 18 Self / Same As Patient Advance Directives Directive Response Recorded Date/Time Do you have an Advanced Directive? No 07/10/15 10:01pm Advance Directives No 06/30/17 4:22am Living Will No 06/30/17 4:22am Health Care Proxy No 01/25/18 8:51pm Power of Mail Handler Equipment Operator for Health Care No 06/30/17 4:22am Organ, Tissue, or Eye Donor No 06/30/17 4:22am Do you have a signed organ donor card? No 12/08/15 9:31pm Chief Complaint and Reason for Visit Chief Complaint FALL Reason for Visit [id number] Problems Medical Problem Onset Date Status Acute [...] Unknown Acute Subtherapeutic anticoagulation Unknown Acute Suicidal ideations Unknown Acute Suicidal [...] (Xarelto) 20 Mg Tablet 20 Mg ORAL Daily Topiramate (Topamax 100 Mg Tab*) 100 Mg Tablet 100 Mg ORAL Twice A Day 30 Tablet Past Home Medications Medication Directions Ordered Status Acetaminophen (Tylenol 500 Mg Tab*) 500 Mg Tablet, 1000 Mg Oral Every 4 Hours As Needed Discontinued Acetaminophen/Hydrocodone Bitart ([place] 7.5-325 Tab*) 1 Tab Tablet, 1 Each Oral Every 4 Hrs As Needed Pain as needed for Pain Discontinued Acetaminophen/Hydrocodone Bitart ([place] 7.5-325 Tab*) 1 Tab Tablet, 1 Each Oral Every 6 Hrs As Needed For Pain as needed for Pain 10/22/16 Discontinued Acetaminophen/Hydrocodone Bitart ([place] 7.5-325 Tab*) 1 Tab Tablet, 1 Each Oral Every 4 Hrs As Needed Pain for Pain Discontinued Acidophilus/Pectin, [place] (Acidophilus-Pectin Captab) 1 Each Tablet, 1 Tab [...] Daily Discontinued Atrovent Estefania 0.0.6% , 2 [place] Nasal Twice A Day Discontinued Azithromycin (Z-Pasha*) [...] Mg Oral Daily As Needed Discontinued Ipratropium [place] (Atrovent*) 0.5 Mg/2.5 Ml Nebu, 0.5-2.5 Mg [...] Pain 02/22/17 Discontinued Phenol (Chloraseptic*) 177 Ml [place].pump, 1 [place] Oral Every 2 Hours As Needed Discontinued Phenol (Chloraseptic) 20 Ml [place], 20 Ml Oropharyngeal as needed for Throat Pain Discontinued Phenol/Glycerin (Chloraseptic Max [place]) 30 Ml [place], 5 [place] Nasal As Needed Discontinued Potassium Chloride (K-Dur [...] information available. Plan of Care Discharge Date 01/25/18 10:50pm Condition at Discharge Stable Instructions/Education Provided Knee Pain (ED) Hip Pain (ED) Prescriptions See Medication Section Referrals CAN HUANG M.D. Order Date: 1 Week Address: [address] [place] [id number] Functional Status Query Response Date Recorded [place] Coma Scale Total 15 January 25, 2018 8:53pm Patient Behavior Cooperative Appropriate January 25, 2018 8:40pm Allergies, Adverse Reactions, Alerts Allergen Type Severity [...] Recorded Date/Time Hx Diphtheria, Pertussis, Tetanus Vaccination Not Up To Date 01/25/18 8:40pm Hx Influenza Vaccination No 01/25/18 8:40pm Hx Pneumococcal Vaccination Yes 01/25/18 8:40pm Hx Tetanus, Diphtheria Vaccination No 01/12/18 6:31pm Hx Tetanus Toxoid Vaccination Yes 09/22/16 8:27pm Vital Signs Acute Vital Signs Vital Response Date/Time Temperature (Fahrenheit) 98.2 degrees F (97.6 - 99.5) 01/25/2018 10:30pm Temperature Source Temporal Artery 01/25/2018 10:30pm Pulse Rate (adult) 83 bpm (60 - 90) 01/25/2018 10:30pm Respiratory Rate 20 bpm (12 - 24) 01/25/2018 10:30pm Blood Pressure 106/60 mm Hg 01/25/2018 10:30pm O2 Sat by Pulse Oximetry 94 % (90 - 100) 01/25/2018 10:30pm Oxygen Delivery Method Room Air 01/25/2018 10:30pm Oxygen Flow Rate 2.0 L/min 01/24/2018 4:05am Pain Intensity 8 01/25/2018 8:53pm Pain Location Body Site Modifier Left 01/25/2018 8:55pm Pain Description Aching 01/25/2018 8:55pm Pain Duration Less than 15 minutes 01/25/2018 8:53pm Height 5 ft 5 in 01/25/2018 8:40pm Weight 266.76 lb 01/25/2018 8:40pm Body Mass Index 44.0 kg/m^2 01/25/2018 8:40pm Results Laboratory Results Test Name Result Units [...] Basophils # (Auto) 0.1 K/uL 0.0-0.2 01/24/2018 1:4801/24/2018 2: 06am Random Glucose 131 mg/dL H 70-110 01/24/2018 1:48am 01/24/2018 2:13am Blood Urea Nitrogen 10 mg/dL 7-18 01/24/2018 1:4801/24/2018 2:13am Creatinine 0.8 mg/dL 0.55-1.02 01/24/2018 1:48am 01/24/2018 2:13am Glomerular Filtration Rate Calc 72.9 mL/min 01/24/2018 1:482017 2:13am Sodium Level 141 mEq/L 136-145 01/24/2018 1:4801/24/2018 2:13am Potassium Level 3.4 mEq/L L 3.5-5.0 01/24/2018 1:4801/24/2018 2:13am Chloride Level 106 mEq/L 98-107 01/24/2018 [...] 0.02 ng/mL 0.0-0.2 01/24/2018 1:48am 01/24/2018 2:26am Procedures Procedure Status Date Provider(s) ROUTINE VENIPUNCTURE [...] Discharge/Depart Date Attending Provider Departed Emergency Room [place] 01/25/18 8:36pm 01/25/18 10:50pm CALIXTO GIBBONS MD Departed Emergency Room [place] 01/24/18 1:28am 01/24/18 4:15am CARMELINA CHRISTINE DO Departed Emergency Room [place] 01/21/18 1:49am 01/21/18 3:22am LATASHA GONZALEZ D.O. Departed Emergency Room [place] 01/12/18 6:30pm 01/12/18 7:55pm CARMELINA CHRISTINE DO Departed Emergency Room [place] 12/30/17 10:14am 12/30/17 3:16pm TRE WREN DO Departed Emergency Room [place] 12/28/17 9:25pm 12/28/17 11:55pm YAMILKA LOWE MD Registered Referred [place] 12/26/17 10:53am ESTEPHANIE MACHADO MD Departed Emergency Room [place] 12/01/17 8:05pm 12/01/17 9:25pm CARMELINA CHRISTINE DO Recent Diagnosis
--- OUTSIDE RECORDS SUMMARY | 2018-07-10 18:55 | XMS REPORT | Continuity of Care Document ---
Author Author [facility] Organization [facility] Address [facility] [address] [place] [address] Phone Unavailable Support Name Relationship Address Phone LATASHA GONZALEZ D.O. Caregiver [address] [place] [address] ESTEPHANIE MACHADO MD Caregiver [address] [place] [address] SHMUEL FRANCOIS Next Of Kin [address] [place], [place] [address] Insurance Providers Guarantor Misa Lund Address [address] [place] [address] Payer Medicare Policy Number [id number] Subscriber's Name KevonMisa J Relationship 18 Self / Same As Patient Payer [facility] Policy Number [id number] Subscriber's Name Oma Lundmima Sanchez Relationship 18 Self / Same As Patient Advance Directives Directive Response Recorded Date/Time Do you have an Advanced Directive? No 07/10/15 10:01pm Advance Directives No 06/30/17 4:22am Living Will No 06/30/17 4:22am Health Care Proxy No 01/21/18 1:50am Power of Claim Technician for Health Care No 06/30/17 4:22am Organ, Tissue, or Eye Donor No 06/30/17 4:22am Do you have a signed organ donor card? No 12/08/15 9:31pm Chief Complaint and Reason for Visit Chief Complaint SUICIDAL THOUGHTS Reason for Visit [id number] Problems Medical Problem Onset Date Status Acute [...] Diarrhea Unknown Acute Influenza A Unknown Acute Subtherapeutic anticoagulation Unknown Acute Suicidal ideations Unknown Acute UTI (urinary tract infection) Unknown Acute Urinary tract infection Unknown Acute Medications Current Home Medications Medication Dose Units Route Directions Days Qty Instructions Start Date Albuterol Sulfate (Ventolin Concentrate 2.5 Mg/ 0.5 Ml*) 2.5 Mg/0.5 Ml Vial.neb. 2.5 Mg RESPIRATORY (INHALATION) Every 6 To 8 Hours As Needed 20 Milliliter As needed for wheezing/asthma 12/01/17 Amlodipine Besylate (Norvasc*) 5 Mg Tablet 5 [...] Tab*) 25 Mg Tablet 25 Mg ORAL Bedtime 60 Tablet Levothyroxine Sodium (Synthroid 200 Mcg Tab*) 200 Mcg Tablet 200 Mcg ORAL Bedtime 30 Tablet Loperamide Hcl (Imodium A-D) 2 Mg Capsule As Needed TAKE 2 CAPS AFTER 3RD LOOSE STOOL, THEN 1 AFTER EACH LOOSE MIKA, MAX 6 CAPS IN 24 HOURS Omeprazole Magnesium 20 Mg Capsule.dr 20 Mg ORAL Twice A Day Prednisone (Prednisone 10 Mg Tab*) 10 Mg Tablet 50 Mg ORAL Daily 50 Tablet 01/12/18 Topiramate (Topamax 100 Mg Tab*) 100 Mg Tablet 100 Mg ORAL Twice A Day 30 Tablet Warfarin Sodium (Coumadin 10 Mg Tab*) 10 Mg Tablet 10 Mg ORAL Daily 30 Tablet saturday-saturday=10mg daily Saturday and Saturday=15mg daily Past Home Medications Medication Directions Ordered Status Acetaminophen (Tylenol 500 Mg Tab*) 500 Mg Tablet, 1000 Mg Oral Every 4 Hours As Needed Discontinued Acetaminophen/Hydrocodone Bitart ([place] 7.5-325 Tab*) 1 Tab Tablet, 1 Each Oral Every 4 Hrs As Needed Pain as needed for Pain Discontinued Acetaminophen/Hydrocodone Bitart ([place] 7.5-325 Tab*) 1 Tab Tablet, 1 Each Oral Every 6 Hrs As Needed For Pain as needed for Pain 10/22/16 Discontinued Acetaminophen/Hydrocodone Bitart ([place] 7.5-325 Tab*) 1 Tab Tablet, 1 Each Oral Every 4 Hrs As Needed Pain for Pain Discontinued Acidophilus/Pectin, [place] (Acidophilus-Pectin [place]) 1 Each Tablet, 1 Tab [...] Daily Discontinued Atrovent Estefania 0.0.6% , 2 [place] Nasal Twice A Day Discontinued Azithromycin (Z-Pasha*) [...] Mg Oral Daily As Needed Discontinued Ipratropium [place] (Atrovent*) 0.5 Mg/2.5 Ml Nebu, 0.5-2.5 Mg [...] Pain 02/22/17 Discontinued Phenol (Chloraseptic*) 177 Ml [place].pump, 1 [place] Oral Every 2 Hours As Needed Discontinued Phenol (Chloraseptic) 20 Ml [place], 20 Ml Oropharyngeal as needed for Throat Pain Discontinued Phenol/Glycerin (Chloraseptic Max [place]) 30 Ml [place], 5 [place] Nasal As Needed Discontinued Potassium Chloride (K-Dur [...] information available. Plan of Care Discharge Date 01/21/18 3:22am Condition at Discharge Stable Instructions/Education Provided Depression (DC) Prescriptions See Medication Section Additional Instructions/Education [facility] Since [facility] feel that your chronic COPD is part of your frustration causing you want to harm himself I would encourage you to work with them on smoking cessation. Functional Status Query Response Date Recorded [place] Coma Scale Total 15 January 21, 2018 1:49am Patient Behavior Cooperative Appropriate January 21, 2018 1:49am Allergies, Adverse Reactions, Alerts Allergen Type Severity [...] Recorded Date/Time Hx Diphtheria, Pertussis, Tetanus Vaccination Up To Date 01/21/18 1:49am Hx Influenza Vaccination N - OFFERED AND REFUSED 01/21/18 1:49am Hx Pneumococcal Vaccination Yes 01/21/18 1:49am Hx Tetanus, Diphtheria Vaccination No 01/12/18 6:31pm Hx Tetanus Toxoid Vaccination Yes 09/22/16 8:27pm Vital Signs Acute Vital Signs Vital Response Date/Time Temperature (Fahrenheit) 97.9 degrees F (97.6 - 99.5) 01/21/2018 1:49am Temperature Source Temporal Artery 01/21/2018 1:49am Pulse Rate (adult) 70 bpm (60 - 90) 01/21/2018 3:20am Respiratory Rate 20 bpm (12 - 24) 01/21/2018 1:49am Blood Pressure 126/78 mm Hg 01/21/2018 3:20am O2 Sat by Pulse Oximetry 98 % (90 - 100) 01/21/2018 3:20am Oxygen Delivery Method Room Air 01/21/2018 3:20am Pain Intensity 9 01/12/2018 7:22pm Pain Location Body Site Modifier Left 01/12/2018 7:55pm Pain Description Aching 10/26/2017 10:24pm Pain Duration 15-30 Minutes 01/12/2018 7:22pm Height 5 ft 5 in 01/21/2018 1:49am Weight 266.76 lb 01/21/2018 1:49am Body Mass Index 44.0 kg/m^2 01/21/2018 1:49am Results Laboratory Results Test Name Result Units Flags Reference Collection Date/Time Result Date/ Time Comments Prothrombin Time 11.1 SECONDS 9.10-11.20 10/26/2017 9:48pm 10/26/2017 10:13pm Prothromb Time International Ratio 1.08 0.9-1.1 10/26/2017 9:48pm 10/2017 10:13pm PLEASE NOTE REFERENCE RANGE Glomerular Filtration Rate Calc 85.1 mL/min 10/26/2017 9:48pm 2017 10:13pm Stool for White Cells POSITIVE 12/30/2017 11:36am 12/30/2017 12: 46pm 3-4 WBCs / HPF Stl C. difficile DNA Amplification NEGATIVE NEGATIVE 12/30/2017 11: 36am 12/30/2017 1:57pm White Blood Count 10.0 K/uL 4.8-10.8 01/12/2018 6:20pm 01/12/2018 6: 53pm Red Blood Count 4.98 M/uL 4.20-5.40 01/12/2018 6:20pm 01/12/2018 6: 53pm Hemoglobin 12.4 gm/dL 12.0-16.0 01/12/2018 6:20pm 01/12/2018 6:53pm Hematocrit 41.1 % 37.0-47.0 01/12/2018 6:20pm 01/12/2018 6:53pm Mean Corpuscular Volume 82.4 fL 81.0-99.0 01/12/2018 6:2001/12/2018 6:53pm Mean Corpuscular Hemoglobin 24.9 pg L 27.0-31.0 01/12/2018 6:20pm 2017 6:53pm Mean Corpuscular Hemoglobin Concent 30.3 g/dL 30.0-37.0 01/12/2018 6: 20pm 01/12/2018 6:53pm Red Cell Distribution Width 17.0 % H 11.5-14.5 01/12/2018 6:202017 6:53pm Platelet Count 281 K/uL 130-400 01/12/2018 6:2001/12/2018 6:53pm Mean Platelet Volume 8.0 fL 7.4-10.4 01/12/2018 6:20pm 01/12/2018 6: 53pm Neutrophils (%) (Auto) 63.6 % 42.2-75.2 01/12/2018 6:pm 01/12/2018 6: 53pm Lymphocytes (%) (Auto) 28.3 % 20.5-51.1 01/12/2018 6:2001/12/2018 6: 53pm Monocytes (%) (Auto) 5.4 % 0-10 01/12/2018 6:20pm 01/12/2018 6:53pm Eosinophils (%) (Auto) 2.0 % 0-3 01/12/2018 6:20pm 01/12/2018 6:53pm Basophils (%) (Auto) 0.7 % 0.0-1.0 01/12/2018 6:20pm 01/12/2018 6:53pm Neutrophils # (Auto) 6.4 K/uL 2.0-6.9 01/12/2018 6:20pm 01/12/2018 6: 53pm Lymphocytes # (Auto) 2.8 K/uL 1.2-3.4 01/12/2018 6:20pm 01/12/2018 6: 53pm Monocytes # (Auto) 0.5 K/uL 0.1-0.6 01/12/2018 6:20pm 01/12/2018 6: 53pm Eosinophils # (Auto) 0.2 K/uL 0.0-0.7 01/12/2018 6:20pm 01/12/2018 6: 53pm Basophils # (Auto) 0.1 K/uL 0.0-0.2 01/12/2018 6:20pm 01/12/2018 6: 53pm Random Glucose 85 mg/dL 70-110 01/12/2018 6:20pm 01/12/2018 6:58pm Blood Urea Nitrogen 8 mg/dL 7-18 01/12/2018 6:20pm 01/12/2018 6:58pm Creatinine 0.8 mg/dL 0.55-1.02 01/12/2018 6:20pm 01/12/2018 6:58pm Glomerular Filtration Rate Calc 72.9 mL/min 01/12/2018 6:20pm 2017 6:58pm Sodium Level 140 mEq/L 136-145 01/12/2018 6:20pm 01/12/2018 6:58pm Potassium Level 3.3 mEq/L L 3.5-5.0 01/12/2018 6:20pm 01/12/2018 6:58pm Chloride Level 105 mEq/L 98-107 01/12/2018 6:20pm 01/12/2018 6:58pm Carbon Dioxide Level 26.2 mEq/L 21-32 01/12/2018 6:2001/12/2018 6: 58pm Calcium Level 8.4 mg/dL L 8.8-10.5 01/12/2018 6:20pm 01/12/2018 6:58pm Total Protein 7.7 gm/dL 6.4-8.2 01/12/2018 6:01/12/2018 7:11pm Albumin 2.8 gm/dL L 3.4-5.0 01/12/2018 6:01/12/2018 7:11pm Total Bilirubin 0.14 mg/dL 0.00-1.00 01/12/2018 6:01/12/2018 7: 11pm Aspartate Amino Transf (AST/SGOT) 4 U/L L 15-37 01/12/2018 6:2017 7:11pm Alanine Aminotransferase (ALT/SGPT) 12 U/L 12-78 01/12/2018 6: 7:11pm Total Alkaline Phosphatase 146 U/L H 46-116 01/12/2018 6:2017 7:11pm Total Creatine Kinase 40 U/L 26-192 01/12/2018 6:01/12/2018 7: 11pm B-Type Natriuretic Peptide 58 pg/mL 10-227 01/12/2018 6:2017 7:11pm 50-75 years of age NT-proBNP values <300 [...] absence of renal failure. Creatine Kinase MB 0.7 ng/mL 0-3.6 01/12/2018 6:01/12/2018 7:11pm Myoglobin 25.0 NG/ML 10.5-92.5 01/12/2018 6:01/12/2018 7:11pm Troponin I < 0.02 ng/mL 0.0-0.2 01/12/2018 6:01/12/2018 7:11pm Procedures Procedure Status Date Provider(s) X-RAY EXAM CHEST 1 VIEW Completed 10/26/17 COMPREHEN METABOLIC PANEL Completed 10/26/17 ASSAY OF CK (CPK) Completed 10/26/17 ASSAY OF CPK IN BLOOD Completed 10/26/17 ASSAY OF MYOGLOBIN Completed 10/26/17 ASSAY OF NATRIURETIC PEPTIDE Completed 10/26/17 ASSAY OF TROPONIN QUANT Completed 10/26/17 COMPLETE CBC AUTOMATED Completed 10/26/17 PROTHROMBIN TIME Completed 10/26/17 ELECTROCARDIOGRAM TRACING Completed 10/26/17 RHYTHM ECG WITH REPORT Completed 10/26/17 EMERGENCY DEPT VISIT Completed 10/26/17 ALS DEFIBRILLATION SUPPLIES Completed 10/26/17 GROUND MILEAGE Completed 10/26/17 BLS-EMERGENCY Completed 10/26/17 FENTANYL CITRATE INJECITON Completed 10/26/17 ROUTINE VENIPUNCTURE Completed 12/01/17 X-RAY EXAM CHEST [...] Completed 01/12/18 Portable x-ray of chest Completed 10/26/17 HAILY EM DO Portable x-ray of chest Completed 12/01/17 CARMELINA CHRISTINE DO Portable x-ray of chest Completed 12/28/17 YAMILKA LOWE MD Portable x-ray of chest Completed 12/30/17 TRE WREN DO Portable x-ray of chest Completed 01/12/18 ALMAZ HAWLEY DO Encounters Encounter Location Arrival/Admit Date Discharge/Depart Date Attending Provider Departed Emergency Room [place] 01/21/18 1:49am 01/21/18 3:22am LATASHA GONZALEZ D.O. Departed Emergency Room [place] 01/12/18 6:30pm 01/12/18 7:55pm CARMELINA CHRISTINE DO Departed Emergency Room [place] 12/30/17 10:14am 12/30/17 3:16pm TRE WREN DO Departed Emergency Room [place] 12/28/17 9:25pm 12/28/17 11:55pm YAMILKA LOWE MD Registered Referred [place] 12/26/17 10:53am ESTEPHANIE MACHADO MD Departed Emergency Room [place] 12/01/17 8:05pm 12/01/17 9:25pm CARMELINA CHRISTINE DO Departed Emergency Room [place] 10/26/17 9:15pm 10/26/17 11:48pm HAILY EM DO Recent Diagnosis
--- OUTSIDE RECORDS SUMMARY | 2018-07-10 18:56 | XMS REPORT | Continuity of Care Document ---
Author Author [facility] Organization [facility] Address [facility] [address] [place] [address] Phone Unavailable Support Name Relationship Address Phone ESTEPHANIE MACHADO MD Caregiver [address] [place] [address] CARMELINA CHRISTINE DO Caregiver [address] [place] [address] Unavailable SHMUEL FRANCOIS Next Of Kin [address] [place], [place] [address] Insurance Providers Guarantor Misa Lund Address [address] [place] [address] Payer Medicare Policy Number [id number] Subscriber's Name Misa Lund Relationship 18 Self / Same As Patient Payer [facility] Policy Number [id number] Subscriber's Name Misa Lund Relationship 18 Self / Same As Patient Advance Directives Directive Response Recorded Date/Time Do you have an Advanced Directive? No 07/10/15 10:01pm Advance Directives No 06/30/17 4:22am Living Will No 06/30/17 4:22am Power of [place]ail [place]yer for Health Care No 06/30/17 4:22am Organ, Tissue, or Eye Donor No 06/30/17 4:22am Do you have a signed organ donor card? No 12/08/15 9:31pm Chief Complaint and Reason for Visit Chief Complaint SHORTNESS OF BREATH Reason for Visit Suicidal thoughts Dyspnea Problems Medical Problem Onset Date Status Acute [...] 4 Hours As Needed Discontinued Acetaminophen/Hydrocodone Bitart ([place] 7.5-325 Tab*) 1 Tab Tablet, 1 Each Oral Every 4 Hrs As Needed Pain as needed for Pain Discontinued Acetaminophen/Hydrocodone Bitart ([place] 7.5-325 Tab*) 1 Tab Tablet, 1 Each Oral Every 6 Hrs As Needed For Pain as needed for Pain 10/22/16 Discontinued Acetaminophen/Hydrocodone Bitart ([place] 7.5-325 Tab*) 1 Tab Tablet, 1 Each Oral Every 4 Hrs As Needed Pain for Pain Discontinued Acidophilus/Pectin, [place] (Acidophilus-Pectin [place]) 1 Each Tablet, 1 Tab [...] Daily Discontinued Atrovent Estefania 0.0.6% , 2 [place] Nasal Twice A Day Discontinued Azithromycin (Z-Pasha*) [...] Mg Oral Daily As Needed Discontinued Ipratropium [place] (Atrovent*) 0.5 Mg/2.5 Ml Nebu, 0.5-2.5 Mg [...] Pain 02/22/17 Discontinued Phenol (Chloraseptic*) 177 Ml [place].pump, 1 [place] Oral Every 2 Hours As Needed Discontinued Phenol (Chloraseptic) 20 Ml [place], 20 Ml Oropharyngeal as needed for Throat Pain Discontinued Phenol/Glycerin (Chloraseptic Max [place]) 30 Ml [place], 5 [place] Nasal As Needed Discontinued Potassium Chloride (K-Dur [...] Not Applicable Not Applicable Alcohol Use none 01/24/2018 2:22am Not Applicable Not Applicable Drug Use none 01/24/2018 2:22am Not Applicable Not Applicable Smoking Status Start Date Stop Date Current every day smoker Hospital Discharge Instructions No hospital discharge instruction information available. Plan of Care Discharge Date 01/24/18 4:15am Condition at Discharge Stable Instructions/Education Provided Suicide Prevention (ED) Prescriptions See Medication Section Referrals ESTEPHANIE MACHADO MD Address: [address] [place] [id number] Additional Instructions/Education Please follow up with [facility] as planned today. Functional Status Query Response Date Recorded [place] Coma Scale Total 15 January 24, 2018 1:42am Patient Behavior Appropriate January 24, 2018 1:25am Allergies, Adverse Reactions, Alerts Allergen Type Severity [...] Diphtheria, Pertussis, Tetanus Vaccination Up To Date 01/24/18 1:25am Hx Influenza Vaccination No 01/24/18 1:25am Hx Pneumococcal Vaccination No 01/24/18 1:25am Hx Tetanus, Diphtheria Vaccination No 01/12/18 6:31pm Hx Tetanus Toxoid Vaccination Yes 09/22/16 8:27pm Vital Signs Acute Vital Signs Vital Response Date/Time Temperature (Fahrenheit) 97.9 degrees F (97.6 - 99.5) 01/24/2018 4:05am Temperature Source Temporal Artery 01/24/2018 4:05am Pulse Rate (adult) 75 bpm (60 - 90) 01/24/2018 4:05am Respiratory Rate 18 bpm (12 - 24) 01/24/2018 4:05am Blood Pressure 142/75 mm Hg 01/24/2018 4:05am O2 Sat by Pulse Oximetry 93 % (90 - 100) 01/24/2018 4:05am Oxygen Delivery Method Nasal Cannula 01/24/2018 4:05am Oxygen Flow Rate 2.0 L/min 01/24/2018 4:05am Pain Intensity 0 01/24/2018 1:18am Pain Location Body Site Modifier Left 01/12/2018 7:55pm Pain Description Aching 10/26/2017 10:24pm Pain Duration 15-30 Minutes 01/12/2018 7:22pm Height 5 ft 5 in 01/24/2018 1:25am Weight 266.76 lb 01/24/2018 1:25am Body Mass Index 44.0 kg/m^2 01/24/2018 1:25am Results Laboratory Results Test Name Result Units [...] 01/24/2018 2:26am Procedures Procedure Status Date Provider(s) X-RAY EXAM [...] of chest Completed 01/24/18 CARMELINA CHRISTINE DO Encounters Encounter Location Arrival/Admit Date Discharge/Depart Date Attending Provider Departed Emergency Room [place] 01/24/18 1:28am 01/24/18 4:15am CARMELINA CHRISTINE DO Departed Emergency Room [place] 01/21/18 1:49am 01/21/18 3:22am LATASHA GONZALEZ D.O. Departed Emergency Room [place] 01/12/18 6:30pm 01/12/18 7:55pm CARMELINA CHRISTINE DO Departed Emergency Room [place] 12/30/17 10:14am 12/30/17 3:16pm TRE WREN DO Departed Emergency Room [place] 12/28/17 9:25pm 12/28/17 11:55pm YAMLIKA LOWE MD Registered Referred [place] 12/26/17 10:53am ESTEPHANIE MACHADO MD Departed Emergency Room [place] 12/01/17 8:05pm 12/01/17 9:25pm CARMELINA CHRISTINE DO Departed Emergency Room [place] 10/26/17 9:15pm 10/26/17 11:48pm HAILY EM DO Recent Diagnosis
--- OUTSIDE RECORDS SUMMARY | 2018-07-10 18:57 | XMS REPORT | Continuity of Care Document ---
Author Author [facility] Organization [facility] Address [facility] [address] [place] [address] Phone Unavailable Support Name Relationship Address Phone LATASHA GONZALEZ D.O. Caregiver [address] [place] [address] ESTEPHANIE MACHADO MD Caregiver [address] [place] [address] SHMUEL FRANCOIS Next Of Kin [address] [place] [address] Insurance Providers Payer Name Policy Number Subscriber Name Relationship Medicare [id number] Misa Lund 18 Self / Same As Patient [facility] [id number] Misa Lund 18 Self / Same As Patient Advance Directives Directive Response Recorded Date/Time Do you have an Advanced Directive? No 07/10/15 10:01pm Advance Directives No 11/16/16 3:46pm Living Will No 11/16/16 3:46pm Health Care Proxy No 02/11/17 9:57pm Power of Pet Supplies Salesperson for Health Care No 11/16/16 3:46pm Organ, Tissue, or Eye Donor No 09/22/16 10:40pm Do you have a signed organ donor card? No 12/08/15 9:31pm Chief Complaint and Reason for Visit Chief Complaint SLEEP APNEA Reason for Visit [id number] Bronchospasm [id number] Problems Active Problems Medical Problem Onset Date [...] Oral Twice A Day 60 07/23/15 Acidophilus/Pectin, [place] 1 Each 1 Tab Oral Daily 07/23/15 Acetaminophen 500 Mg 1,000 Mg Oral Every 4 Hours As Needed 05/02/16 Amlodipine Besylate 5 Mg 5 Mg Oral Bedtime 30 09/22/16 Spironolactone 25 Mg 25 Mg Oral Every Three Days 09/22/16 Levothyroxine Sodium 200 Mcg 200 Mcg Oral Before Breakfast 30 09/22/16 Isosorbide Mononitrate 30 Mg 60 Mg Oral Bedtime 11/16/16 [Atrovent Estefania 0.0.6%] 2 [place] Nasal Twice A Day 11/16/16 Buspirone Hcl [...] Oral Every Other Day 09/22/16 Discontinued Ipratropium [place] 0.5 Mg/2.5 Ml Nebu, 0.5-2.5 Mg Inhalation Twice A Day Discontinued Topiramate 100 Mg Tablet, 100 Mg Oral Twice A Day 09/22/16 Discontinued Sucralfate 1 G Tablet, 1 Gm Oral Four Times Daily 09/22/16 Discontinued Phenol/Glycerin 30 Ml [place], 5 [place] Nasal As Needed 09/22/16 Discontinued Hydroxyzine Hcl [...] Use Cigarettes 05/02/2016 3:40pm Drug Use none 02/11/2017 10:25pm Employment Retired 02/11/2017 10:25pm Query Response Start Date Stop Date Smoking Status Current every day smoker Hospital Discharge Instructions No hospital discharge instructions. Plan of Care Discharge Date 02/11/17 10:35pm Disposition 01 HOME, [facility],ASSISTED LIVING Condition at Discharge Stable Instructions/Education Provided Bronchospasm (ED) Prescriptions See Medication Section Referrals ESTEPHANIE MACHADO MD - Additional Instructions/Education Do your best to discontinue smoking. Discuss with your doctor the possibility of reflux contributing to your problem and the potential need for an EGD to evaluate it further. Functional Status Query Response Date Recorded Patient Behavior Cooperative Appropriate February 11, 2017 9:50pm Allergies, Adverse Reactions, Alerts Allergen Type Severity [...] (Fahrenheit) 97.8 degrees F (97.6 - 99.5) 02/11/2017 10:35pm Temperature Source Temporal Artery 02/11/2017 10:35pm Pulse Rate (adult) 62 bpm (60 - 90) 02/11/2017 10:35pm Respiratory Rate 22 bpm (12 - 24) 02/11/2017 10:35pm Blood Pressure 134/62 mm Hg 02/11/2017 10:35pm O2 Sat by Pulse Oximetry 96 % (90 - 100) 02/11/2017 10:35pm Oxygen Delivery Method 02/11/2017 10:35pm Oxygen Flow Rate 2.0 L/min 02/05/2017 11:13pm Pain Intensity 0 02/11/2017 10:33pm Pain Location Body Site Modifier 02/07/2017 11:42pm Pain Description 02/07/2017 11:42pm Pain Duration 15-30 Minutes 02/07/2017 11:42pm Height 5 ft 3 in Weight 299 [...] Discharge/Depart Date Attending Provider Departed Emergency Room [place] 02/11/17 9:49pm 02/11/17 10:35pm LATASHA GONZALEZ D.O. Departed Emergency Room [place] 02/07/17 11:23pm 02/08/17 1:15am ORION BOSE MD Departed Emergency Room [place] 02/05/17 11:00pm 02/05/17 11:50pm HAILY EM DO Departed Emergency Room [place] 01/04/17 9:20pm 01/05/17 12:15am SHERIF SANCHEZ M.D. Registered Referred [place] 12/07/16 4:15pm JAY JAY WREN APRN Registered [facility] [place] 11/20/16 5:35am ARNOLDO GARCIA MD Recent Diagnosis
--- OUTSIDE RECORDS SUMMARY | 2018-07-10 18:57 | XMS REPORT | Continuity of Care Document ---
Author Author [facility] Organization [facility] Address [facility] [address] [place] [address] Phone Unavailable Support Name Relationship Address Phone ESTEPHANIE MACHADO MD Caregiver [address] [place] [address] CARMELINA CHRISTINE DO Caregiver [address] [place] [address] Unavailable SHMUEL FRANCOIS Next Of Kin [address] [place], [place] [address] Insurance Providers Guarantor Misa Lund Address [address] [place] [address] Payer Medicare Policy Number [id number] Subscriber's Name Misa Lund Relationship 18 Self / Same As Patient Payer [facility] Policy Number [id number] Subscriber's Name Misa Lund Relationship 18 Self / Same As Patient Advance Directives Directive Response Recorded Date/Time Do you have an Advanced Directive? No 07/10/15 10:01pm Advance Directives No 06/30/17 4:22am Living Will No 06/30/17 4:22am Health Care Proxy No 01/12/18 6:32pm Power of Reactor Kettle Operator for Health Care No 06/30/17 4:22am Organ, Tissue, or Eye Donor No 06/30/17 4:22am Do you have a signed organ donor card? No 12/08/15 9:31pm Chief Complaint and Reason for Visit Chief Complaint CHEST WALL PAIN Reason for Visit [id number] Problems Medical Problem Onset Date Status Acute [...] Tablet 25 Mg ORAL Bedtime 60 Tablet Levofloxacin (Levaquin 750 Mg Tab*) 750 Mg Tablet 750 Mg ORAL Daily 5 Tablet 01/12/18 Levothyroxine Sodium (Synthroid 200 Mcg Tab*) 200 [...] Mg ORAL Twice A Day 30 Tablet Vancomycin Hcl 100 Gm Bulkbaginj 160 Mg NASAL Twice A Day Warfarin Sodium (Coumadin 10 Mg Tab*) 10 Mg Tablet 10 Mg ORAL Daily 30 Tablet saturday-saturday=10mg daily Saturday and Saturday=15mg daily Past Home Medications Medication Directions Ordered Status Acetaminophen (Tylenol 500 Mg Tab*) 500 Mg Tablet, 1000 Mg Oral Every 4 Hours As Needed Discontinued Acetaminophen/Hydrocodone Bitart ([place] 7.5-325 Tab*) 1 Tab Tablet, 1 Each Oral Every 4 Hrs As Needed Pain as needed for Pain Discontinued Acetaminophen/Hydrocodone Bitart ([place] 7.5-325 Tab*) 1 Tab Tablet, 1 Each Oral Every 6 Hrs As Needed For Pain as needed for Pain 10/22/16 Discontinued Acetaminophen/Hydrocodone Bitart ([place] 7.5-325 Tab*) 1 Tab Tablet, 1 Each Oral Every 4 Hrs As Needed Pain for Pain Discontinued Acidophilus/Pectin, [place] (Acidophilus-Pectin [place]) 1 Each Tablet, 1 Tab [...] Daily Discontinued Atrovent Estefania 0.0.6% , 2 [place] Nasal Twice A Day Discontinued Azithromycin (Z-Pasha*) [...] Mg Oral Daily As Needed Discontinued Ipratropium [place] (Atrovent*) 0.5 Mg/2.5 Ml Nebu, 0.5-2.5 Mg [...] Pain 02/22/17 Discontinued Phenol (Chloraseptic*) 177 Ml [place].pump, 1 [place] Oral Every 2 Hours As Needed Discontinued Phenol (Chloraseptic) 20 Ml [place], 20 Ml Oropharyngeal as needed for Throat Pain Discontinued Phenol/Glycerin (Chloraseptic Max [place]) 30 Ml [place], 5 [place] Nasal As Needed Discontinued Potassium Chloride (K-Dur [...] Not Applicable Not Applicable Alcohol Use none 01/12/2018 7:24pm Not Applicable Not Applicable Drug Use none 01/12/2018 7:24pm Not Applicable Not Applicable Smoking Status Start Date Stop Date Current every day smoker Hospital Discharge Instructions No hospital discharge instruction information available. Plan of Care Discharge Date 01/12/18 7:55pm Condition at Discharge Stable Instructions/Education Provided COPD (Chronic Obstructive Pulmonary Disease) ( ED) Prescriptions See Medication Section Referrals ESTEPHANIE MACHADO MD Address: [address] [place] [phone] Functional Status Query Response Date Recorded [place] Coma Scale Total 15 January 12, 2018 7:22pm Patient Behavior Cooperative January 12, 2018 6:31pm Allergies, Adverse Reactions, Alerts Allergen Type Severity [...] Date/Time Hx Diphtheria, Pertussis, Tetanus Vaccination Unknown 01/12/18 6:31pm Hx Influenza Vaccination No 01/12/18 6:31pm Hx Pneumococcal Vaccination Y - 5yrs ago 01/12/18 6:31pm Hx Tetanus, Diphtheria Vaccination No 01/12/18 6:31pm Hx Tetanus Toxoid Vaccination Yes 09/22/16 8:27pm Vital Signs Acute Vital Signs Vital Response Date/Time Temperature (Fahrenheit) 98.0 degrees F (97.6 - 99.5) 01/12/2018 6:33pm Temperature Source Oral 01/12/2018 6:33pm Pulse Rate (adult) 78 bpm (60 - 90) 01/12/2018 7:50pm Respiratory Rate 21 bpm (12 - 24) 01/12/2018 7:50pm Blood Pressure 118/57 mm Hg 01/12/2018 7:50pm O2 Sat by Pulse Oximetry 92 % (90 - 100) 01/12/2018 7:50pm Oxygen Delivery Method Room Air 01/12/2018 7:50pm Pain Intensity 9 01/12/2018 7:22pm Pain Location Body Site Modifier Left 01/12/2018 7:55pm Pain Description Aching 10/26/2017 10:24pm Pain Duration 15-30 Minutes 01/12/2018 7:22pm Height 5 ft 5 in 01/12/2018 6:05pm Weight 330.69 lb 01/12/2018 6:31pm Body Mass Index 55.0 kg/m^2 01/12/2018 6:31pm Results Laboratory Results Test Name Result Units [...] Mean Corpuscular Volume 82.4 fL 81.0-99.0 01/12/2018 6:20pm 01/12/2018 6:53pm Mean Corpuscular Hemoglobin 24.9 pg L 27.0-31.0 01/12/2018 6:20pm 2017 6:53pm Mean Corpuscular Hemoglobin Concent 30.3 g/dL 30.0-37.0 01/12/2018 6: 20pm 01/12/2018 6:53pm Red Cell Distribution Width 17.0 % H 11.5-14.5 01/12/2018 6:202017 6:53pm Platelet Count 281 K/uL 130-400 01/12/2018 6:20pm 01/12/2018 6:53pm Mean Platelet Volume 8.0 fL 7.4-10.4 01/12/2018 6:pm 01/12/2018 6: 53pm Neutrophils (%) (Auto) 63.6 [...] Carbon Dioxide Level 26.2 mEq/L 21-32 01/12/2018 6:01/12/2018 6: 58pm Calcium Level 8.4 mg/dL L 8.8-10.5 01/12/2018 6:2001/12/2018 6:58pm Total Protein 7.7 gm/dL 6.4-8.2 01/12/2018 [...] 12/30/17 NORMAL SALINE SOLUTION INFUS Completed 12/30/17 Portable x-ray of chest Completed 10/26/17 HAILY EM DO Portable x-ray of chest Completed 12/01/17 CARMELINA CHRISTINE DO Portable x-ray of chest Completed 12/28/17 YAMILKA LOWE MD Portable x-ray of chest Completed 12/30/17 TRE WREN DO Portable x-ray of chest Completed 01/12/18 ALMAZ HAWLEY DO Encounters Encounter Location Arrival/Admit Date Discharge/Depart Date Attending Provider Departed Emergency Room [place] 01/12/18 6:30pm 01/12/18 7:55pm CARMELINA CHRISTINE DO Departed Emergency Room [place] 12/30/17 10:14am 12/30/17 3:16pm TRE WREN DO Departed Emergency Room [place] 12/28/17 9:25pm 12/28/17 11:55pm YAMILKA LOWE MD Registered Referred [place] 12/26/17 10:53am ESTEPHANIE MACHADO MD Departed Emergency Room [place] 12/01/17 8:05pm 12/01/17 9:25pm CARMELINA CHRISTINE DO Departed Emergency Room [place] 10/26/17 9:15pm 10/26/17 11:48pm HAILY EM DO Recent Diagnosis
--- OUTSIDE RECORDS SUMMARY | 2018-07-10 18:58 | XMS REPORT | Continuity of Care Document ---
Author Author [facility] Organization [facility] Address [facility] [address] [address] Phone Unavailable Support Name Relationship Address Phone STEPHENIE FERNANDEZ MD Caregiver [address] [address] Unavailable JOAQUIN ROGERS MD Caregiver [address] [address] Unavailable SHMUEL FRANCOIS Next Of Kin [address] [place] [address] Insurance Providers Payer Name Policy Number Subscriber Name Relationship Medicare [id number] Misa Lund 18 Self / Same As [facility] [id number] Misa Lund 18 Self / Same As Patient Advance Directives Directive Response Recorded Date/Time Do you have an Advanced Directive? No 07/10/15 10:01pm Advance Directives No 07/10/15 10:20pm Living Will No 07/10/15 10:20pm Health Care Proxy No 07/10/15 10:20pm Power of Process Helper for Health Care No 07/10/15 10:20pm Organ, Tissue, or Eye Donor No 07/10/15 10:20pm Do you have a signed organ donor card? No 06/24/15 8:44pm Chief Complaint and Reason for Visit Chief Complaint CHEST PAIN, T E L E M E T R Y Reason for Visit Chest wall pain Problems Active Problems Medical Problem Onset Date Status Acute exacerbation of chronic obstructive pulmonary disease (COPD) Unknown Acute Chest pain Unknown Acute Chest [...] Oral Three Times A Day 90 06/25/15 Past Home Medications Medication Directions Ordered Status [...] Date/Time Smoking Status Current every day smoker 07/10/2015 10:20pm Alcohol Use none 07/10/2015 8:21pm Drug Use none 07/10/2015 8:21pm Query Response Start Date Stop Date Smoking Status Current every day smoker Hospital Discharge Instructions Discharge Instructions Provider Instructions Make Appointment with: Other: CARY LUI APRN Other: TOMORROW, 07-12-15 AT 2 PM. Diet: Regular (No Restrictions) Activity Restrictions: As Tolerated Smoking Cessation If you are a smoker, the following is recommended: Stop all tobacco use; for help quitting, please call [phone]. Notify Physician If: Excessive Bleeding, Chest Pain Additional Instructions: APPOINTMENT WITH NURSE PRACTIONER TOMORROW TO RECEHCK PT/INR (BLEEDING TIME.) COUMADIN DOSE TO BE ADJUSTED FOLLOWING RESULTS OF PT/INR. Nursing Instructions Flu Vaccine Received this Visit: No Pneumonia Vaccine Received this Visit: No Education #1 Topic: Chest Pain Methods: Handout Recipient: Patient Patient specific education materials provided?: Yes Patient Request Electronic Discharge Instructions: No Patient Received Electronic Discharge Instructions: Yes Patient Health Summary printed/downloaded for the patient?: Yes Plan of Care Discharge Date 07/11/15 3:00pm Disposition [facility] Instructions/Education Provided Chest Pain (DC) Prescriptions See Medication Section Care Plan and Goals See Discharge Instructions Section Functional Status Query Response Date Recorded [place] Coma Scale Total 15 July 11, 2015 8:04am Patient Behavior July 11, 2015 8:04am Allergies, Adverse Reactions, Alerts Allergen Type Severity Reaction Status Last Updated IODINE Allergy Unknown Active 07/10/15 Penicillin Allergy Unknown Active 07/10/15 Cephalosporins Allergy Unknown Active 07/10/15 Tetracyclines Allergy Unknown Active 07/10/15 SULFA (SULFONAMIDE ANTIBIOTICS) Allergy Unknown Active 07/10/15 Morphine Allergy Unknown Active 07/10/15 Codeine Allergy Unknown Active 07/10/15 Aspirin Allergy Unknown Active 07/10/15 Erythromycin base Allergy Unknown Active 07/10/15 Diphenhydramine Allergy Unknown Active 07/10/15 Ketorolac Allergy Unknown Active 07/10/15 Immunizations Name Given Type Hx Diphtheria, Pertussis, Tetanus Vaccination Unknown Historical Hx Influenza Vaccination No Historical Hx Pneumococcal Vaccination Y OCTOBER 2014 Historical Vital Signs Acute Vital Signs Vital Response Date/Time Temperature (Fahrenheit) 97.8 degrees F (97.6 - 99.5) 07/11/2015 10:28am Temperature Source Temporal Artery 07/11/2015 10:28am Pulse Rate (adult) 76 bpm (60 - 90) 07/11/2015 10:28am Respiratory Rate 20 bpm (12 - 24) 07/11/2015 10:28am Blood Pressure 129/77 mm Hg 07/11/2015 10:28am O2 Sat by Pulse Oximetry 91 % (90 - 100) 07/11/2015 10:28am Oxygen Delivery Method 07/10/2015 9:45pm Oxygen Flow Rate 2.0 L/min 07/11/2015 5:54am Pain Intensity 9 07/10/2015 10:20pm Pain Location Body Site Modifier Lower 07/10/2015 10:20pm Pain Description 07/10/2015 10:20pm Pain Duration > 6 Hours 07/10/2015 10:20pm Height 5 ft 3 in Weight 300 lb Body Mass Index 53.0 kg/m^2 Results Laboratory Results Test Name Result [...] Calc 68.4 mL/min 06/21/2015 5:30am 2014 6:04am Pending Laboratory Results Test Name Collection Date/Time Procedures Procedure Status Date Provider(s) Portable x-ray of chest Active 06/21/15 CARMELINA CHRISITNE DO Portable x-ray of chest Active 06/24/15 MARTY DUNN MD Portable x-ray of chest Completed 07/10/15 JOAQUIN ROGERS MD Encounters Encounter Location Arrival/Admit Date Discharge/Depart Date Attending Provider Discharged Inpatient (obs) [place] 07/10/15 9:50pm 07/11/15 3:00pm STEPHENIE FERNANDEZ MD Departed Emergency Room [place] 06/24/15 7:54pm 06/24/15 10:27pm MARTY DUNN MD Departed Emergency Room [place] 06/21/15 5:07am 06/21/15 8:05am CARMELINA CHRISTINE DO Recent Diagnosis Chest wall pain
--- OUTSIDE RECORDS SUMMARY | 2018-07-10 18:58 | XMS REPORT | Continuity of Care Document ---
Author Author [facility] Organization [facility] Address [facility] [address] [place] [address] Phone Unavailable Support Name Relationship Address Phone ESTEPHANIE MACHADO MD Caregiver [address] [place] [address] CARMELINA CHRISTINE DO Caregiver [address] [place] [address] Unavailable SHMUEL FRANCOIS Next Of Kin [address] [place] [address] Insurance Providers Payer Name Policy Number Subscriber Name Relationship Medicare [id number] Misa Lund 18 Self / Same As Patient [facility] [id number] Misa Lund 18 Self / Same As Patient Advance Directives Directive Response Recorded Date/Time Do you have an Advanced Directive? No 07/10/15 10:01pm Advance Directives No 11/16/16 3:46pm Living Will No 11/16/16 3:46pm Health Care Proxy No 03/04/17 3:43pm Power of Hazardous Materials Driver for Health Care No 11/16/16 3:46pm Organ, Tissue, or Eye Donor No 09/22/16 10:40pm Do you have a signed organ donor card? No 12/08/15 9:31pm Chief Complaint and Reason for Visit Chief Complaint BACK PAIN OR INJURY Reason for Visit [id number] Problems Active Problems Medical Problem Onset Date [...] Oral Twice A Day 60 07/23/15 Acidophilus/Pectin, [place] 1 Each 1 Tab Oral Daily 07/23/15 Acetaminophen 500 Mg 1,000 Mg Oral Every 4 Hours As Needed 05/02/16 Amlodipine Besylate 5 Mg 5 Mg Oral Bedtime 30 09/22/16 Spironolactone 25 Mg 25 Mg Oral Every Three Days 09/22/16 Levothyroxine Sodium 200 Mcg 200 Mcg Oral Before Breakfast 30 09/22/16 Isosorbide Mononitrate 30 Mg 60 Mg Oral Bedtime 11/16/16 [Atrovent Estefania 0.0.6%] 2 [place] Nasal Twice A Day 11/16/16 Buspirone Hcl [...] 4 Mg 4 Mg Oral As Directed 21 02/22/17 Oxycodone Hcl/Acetaminophen 1 Tab 1 Tab Oral Every 4-6 Hrs As Needed Pain 30 02/22/17 Cyclobenzaprine Hcl (Flexeril*) 10 Mg 10 Mg Oral Twice A Day Past Home Medications Medication Directions Ordered Status [...] Oral Every Other Day 09/22/16 Discontinued Ipratropium [place] 0.5 Mg/2.5 Ml Nebu, 0.5-2.5 Mg Inhalation Twice A Day Discontinued Topiramate 100 Mg Tablet, 100 Mg Oral Twice A Day 09/22/16 Discontinued Sucralfate 1 G Tablet, 1 Gm Oral Four Times Daily 09/22/16 Discontinued Phenol/Glycerin 30 Ml [place], 5 [place] Nasal As Needed 09/22/16 Discontinued Hydroxyzine Hcl [...] Use Cigarettes 05/02/2016 3:40pm Alcohol Use none 03/04/2017 3:57pm Drug Use none 03/04/2017 3:57pm Query Response Start Date Stop Date Smoking Status Current every day smoker Hospital Discharge Instructions No hospital discharge instructions. Plan of Care Discharge Date 03/04/17 4:00pm Disposition 01 HOME, [facility],ASSISTED LIVING Condition at Discharge Stable Instructions/Education Provided Chronic Back Pain (ED) Prescriptions See Medication Section Referrals ESTEPHANIE MACHADO MD - Additional Instructions/Education FOLLOW UP WITH YOUR DOCTOR THIS WEEK Functional Status Query Response Date Recorded Patient Behavior Cooperative Appropriate March 04, 2017 3:32pm Allergies, Adverse Reactions, Alerts Allergen Type Severity [...] Vital Signs Vital Response Date/Time Temperature (Fahrenheit) 98.6 degrees F (97.6 - 99.5) 03/04/2017 3:32pm Temperature Source Temporal Artery 03/04/2017 3:32pm Pulse Rate (adult) 83 bpm (60 - 90) 03/04/2017 3:32pm Respiratory Rate 16 bpm (12 - 24) 03/04/2017 3:32pm Blood Pressure 123/70 mm Hg 03/04/2017 3:32pm O2 Sat by Pulse Oximetry 94 % (90 - 100) 03/04/2017 3:32pm Oxygen Delivery Method 03/04/2017 3:32pm Oxygen Flow Rate 2 L/min 02/19/2017 12:40am Pain Intensity 8 02/22/2017 11:28pm Pain Location Body Site Modifier 03/04/2017 3:57pm Pain Description 03/04/2017 3:57pm Pain Duration 15-30 Minutes 02/07/2017 11:42pm Height 5 ft 3 in Weight 324 lb Body Mass Index 57.0 kg/m^2 Results Pending Laboratory Results Test Name [...] GROUND MILEAGE Completed 02/22/17 ALS1-EMERGENCY Completed 02/22/17 THERPROPHDIAG INJ SCIM Completed 02/28/17 EMERGENCY DEPT VISIT Completed 02/28/17 FENTANYL CITRATE INJECITON Completed 02/28/17 Portable x-ray of chest Completed 01/04/17 SHERIF SANCHEZ M.D. Portable x-ray of chest Completed 02/07/17 ORION BOSE MD Portable x-ray of chest Completed 02/19/17 LATASHA GONZALEZ D.O. X-ray of chest, PA and lateral views Completed 02/23/17 SHERIF SANCHEZ M.D. Encounters Encounter Location Arrival/Admit Date Discharge/Depart Date Attending Provider Departed Emergency Room [place] 03/04/17 3:33pm 03/04/17 4:00pm CARMELINA CHRISTINE DO Departed Emergency Room [place] 02/28/17 10:12pm 02/28/17 10:40pm CARMELINA CHRISTINE DO [facility] [place] 02/28/17 8:45am TRIAGE, EMS Departed Emergency Room [place] 02/22/17 11:41pm 02/23/17 12:50am SHERIF SANCHEZ M.D. Departed Emergency Room [place] 02/22/17 12:03pm 02/22/17 2:45pm ALEXEY CYR MD Departed Emergency Room [place] 02/19/17 12:36am 02/19/17 2:50am LATASHA GONZALEZ D.O. Departed Emergency Room [place] 02/11/17 9:49pm 02/11/17 10:35pm LATASHA GONZALEZ D.O. Departed Emergency Room [place] 02/07/17 11:23pm 02/08/17 1:15am ORION BOSE MD Departed Emergency Room [place] 02/05/17 11:00pm 02/05/17 11:50pm HAILY EM DO Departed Emergency Room [place] 01/04/17 9:20pm 01/05/17 12:15am SHERIF SANCHEZ M.D. Registered Referred [place] 12/07/16 4:15pm JAY JAY WREN APRN Recent Diagnosis
--- OUTSIDE RECORDS SUMMARY | 2018-07-10 18:59 | XMS REPORT | Continuity of Care Document ---
Author Author [facility] Organization [facility] Address [facility] [address] [place] [address] Phone Unavailable Support Name Relationship Address Phone ESTEPHANIE MACHADO MD Caregiver [address] [place] [address] MARTY DUNN MD Caregiver [address] [place] [address] Unavailable SHMUEL FRANCOIS Next Of Kin [address] [place] [address] Insurance Providers Payer Name Policy Number Subscriber Name Relationship Medicare [id number] Misa Lund Self / Same As Patient [place] [employer] [id number] Misa Lund Self / Same As Patient Advance Directives Directive Response Recorded Date/Time Do you have an Advanced Directive? No 07/10/15 10:01pm Advance Directives No 09/22/16 10:40pm Living Will No 09/22/16 10:40pm Health Care Proxy No 10/21/16 8:57pm Power of Bistro Server for Health Care No 09/22/16 10:40pm Organ, Tissue, or Eye Donor No 09/22/16 10:40pm Do you have a signed organ donor card? No 12/08/15 9:31pm Chief Complaint and Reason for Visit Chief Complaint KNEE PAIN Reason for Visit [id number] Fall Problems Active Problems Medical Problem Onset Date [...] Oral Three Times A Day 07/23/15 Acidophilus/Pectin, [place] 1 Each 1 Tab Oral Daily 07/23/15 [...] 200 Mcg Oral Daily 30 09/22/16 Ipratropium [place] 0.5 Mg/2.5 Ml 0.5-2.5 Mg Inhalation Twice A Day 09/22/16 Topiramate 100 Mg 100 Mg Oral Twice A Day 30 09/22/16 Sucralfate 1 G 1 Gm Oral Four Times Daily 09/22/16 Phenol/Glycerin 30 Ml 5 [place] Nasal As Needed 09/22/16 Hydroxyzine Hcl 50 [...] for Wheezing 1 INHALE 2 PUFFS 09/24/16 Salmeterol Xinafoate/Fluticasone 1 Each 1 Puff Inhalation Twice A Day 1 ONE INHALATION 09/26/16 Prednisone 50 Mg 50 Mg Oral Daily 10/07/16 Acetaminophen/Hydrocodone Bitart (Lortab 7.5-325 Tab*) 1 Tab 1 Each Oral Every 6 Hrs As Needed For Pain as needed for Pain 10/22/16 Past Home Medications Medication Directions Ordered Status [...] discharge instructions. Plan of Care Discharge Date 10/22/16 12:28am Condition at Discharge Improved Instructions/Education Provided Knee Pain (ED) Prescriptions See Medication Section Referrals ESTEPHANIE MACHADO MD, KALAPURAKKAL SUNIL M.D. - 2-3 Days Functional Status Query Response Date Recorded [place] Coma Scale Total 15 October 21, 2016 10:41pm Patient Behavior Cooperative Appropriate October 21, 2016 10:41pm Allergies, Adverse Reactions, Alerts Allergen Type Severity Reaction Status Last Updated IODINE Allergy Unknown Active 10/07/16 Penicillin Allergy Unknown Active 10/07/16 Cephalosporins Allergy Unknown Active 10/07/16 Tetracyclines Allergy Unknown Active 10/07/16 SULFA (SULFONAMIDE ANTIBIOTICS) Allergy Unknown Active 10/07/16 Morphine Allergy Unknown Active 10/07/16 Codeine Allergy Unknown Active 10/07/16 Aspirin Allergy Unknown Active 10/07/16 Erythromycin base Allergy Unknown Active 10/07/16 Diphenhydramine Allergy Unknown Active 10/07/16 Ketorolac Allergy Unknown Active 10/07/16 Banana Allergy Unknown Active 10/07/16 Fish Allergy Unknown Active 10/07/16 Mushrooms Allergy Unknown Active 10/07/16 Immunizations Name Given Type Hx Diphtheria, Pertussis, Tetanus Vaccination Unknown Historical Hx Influenza Vaccination N Patient states "I do not take the flu shot" Historical Hx Pneumococcal Vaccination Y Patient believes it was approximately 3 years ago. Historical Hx Tetanus, Diphtheria Vaccination Yes Historical Hx Tetanus Toxoid Vaccination Yes Historical Vital Signs Acute Vital Signs Vital Response Date/Time Temperature (Fahrenheit) 97.5 degrees F (97.6 - 99.5) 10/22/2016 12:28am Temperature Source Temporal Artery 10/22/2016 12:28am Pulse Rate (adult) 79 bpm (60 - 90) 10/22/2016 12:28am Respiratory Rate 20 bpm (12 - 24) 10/22/2016 12:28am Blood Pressure 111/61 mm Hg 10/22/2016 12:28am O2 Sat by Pulse Oximetry 95 % (90 - 100) 10/22/2016 12:28am Oxygen Delivery Method 10/22/2016 12:28am Oxygen Flow Rate 2 L/min 09/26/2016 3:00am Pain Intensity 6 09/23/2016 8:10am Pain Location Body Site Modifier 10/22/2016 12:28am Pain Description [place] 10/21/2016 11:45pm Height 5 ft 5 in Weight 320 lb Body Mass Index 53.0 kg/m^2 Results [...] 08/24/16 METABOLIC PANEL TOTAL CA Completed 09/14/16 CHEST X-RAY 1 VIEW FRONTAL Completed 09/22/16 COMPREHEN METABOLIC PANEL Completed 09/22/16 ASSAY OF CPK IN BLOOD Completed 09/22/16 ASSAY OF CPK IN BLOOD Completed 09/22/16 ASSAY OF MYOGLOBIN Completed 09/22/16 ASSAY OF MYOGLOBIN Completed 09/22/16 ASSAY OF NATRIURETIC PEPTIDE Completed 09/22/16 ASSAY OF TROPONIN QUANT Completed 09/22/16 ASSAY OF TROPONIN QUANT Completed 09/22/16 ASSAY OF TROPONIN QUANT Completed 09/22/16 COMPLETE CBC AUTOMATED Completed 09/22/16 ELECTROCARDIOGRAM TRACING Completed 09/22/16 MEASURE BLOOD OXYGEN LEVEL Completed 09/22/16 MEASURE BLOOD OXYGEN LEVEL Completed 09/22/16 THERPROPHDIAG INJ IV PUSH Completed 09/22/16 TXPRODX INJ SAME DRUG JEEP MECHANIC Completed 09/22/16 EMERGENCY DEPT VISIT Completed 09/22/16 HOSPITAL OBSERVATION PER HR Completed 09/22/16 HOSPITAL OBSERVATION PER HR Completed 09/22/16 FENTANYL CITRATE INJECITON Completed 09/22/16 FENTANYL CITRATE INJECITON Completed 09/22/16 FENTANYL CITRATE INJECITON Completed 09/22/16 FENTANYL CITRATE INJECITON Completed 09/22/16 FENTANYL CITRATE INJECITON Completed 09/22/16 CHEST X-RAY 1 VIEW FRONTAL Completed 09/24/16 COMPREHEN METABOLIC PANEL Completed 09/24/16 ASSAY OF CK (CPK) Completed 09/24/16 ASSAY OF CPK IN BLOOD Completed 09/24/16 ASSAY OF MYOGLOBIN Completed 09/24/16 ASSAY OF TROPONIN QUANT Completed 09/24/16 COMPLETE CBC AUTOMATED Completed 09/24/16 ELECTROCARDIOGRAM TRACING Completed 09/24/16 AIRWAY INHALATION TREATMENT Completed 09/24/16 THERPROPHDIAG INJ IV PUSH Completed 09/24/16 EMERGENCY DEPT VISIT Completed 09/24/16 ALBUTEROL IPRATROP NON-COMP Completed 09/24/16 ROUTINE VENIPUNCTURE Completed 09/26/16 CHEST X-RAY 1 VIEW FRONTAL Completed 09/26/16 COMPREHEN METABOLIC PANEL Completed 09/26/16 ASSAY OF CPK IN BLOOD Completed 09/26/16 ASSAY OF MYOGLOBIN Completed 09/26/16 ASSAY OF TROPONIN QUANT Completed 09/26/16 COMPLETE CBC AUTOMATED Completed 09/26/16 ELECTROCARDIOGRAM TRACING Completed 09/26/16 AIRWAY INHALATION TREATMENT Completed 09/26/16 AIRWAY INHALATION TREATMENT Completed 09/26/16 EMERGENCY DEPT VISIT Completed 09/26/16 Completed 09/26/16 ALBUTEROL NON-COMP CON Completed 09/26/16 ALBUTEROL IPRATROP NON-COMP Completed 09/26/16 ROUTINE VENIPUNCTURE Completed 10/07/16 CHEST X-RAY 1 VIEW FRONTAL Completed 10/07/16 METABOLIC PANEL TOTAL CA Completed 10/07/16 ASSAY OF TROPONIN QUANT Completed 10/07/16 COMPLETE CBC AUTOMATED Completed 10/07/16 ELECTROCARDIOGRAM TRACING Completed 10/07/16 AIRWAY INHALATION TREATMENT Completed 10/07/16 EMERGENCY DEPT VISIT Completed 10/07/16 ALBUTEROL IPRATROP NON-COMP Completed 10/07/16 COMPREHEN METABOLIC PANEL Completed 10/15/16 ASSAY THYROID STIM HORMONE Completed 10/15/16 COMPLETE CBC AUTOMATED Completed 10/15/16 PROTHROMBIN TIME Completed 10/15/16 Portable x-ray of chest Active 09/22/16 SHANELLE GARCIA MD Portable x-ray of chest Active 09/24/16 CARMELINA CHRISTINE DO Portable x-ray of chest Active 09/26/16 LATASHA GONZALEZ D.O. Persantine Carlos Alberto.perf.mult(Spect Completed 10/05/16 ESTEPHANIE MACHADO MD Portable x-ray of chest Active 10/07/16 EDEL KYLE MD X-ray of right knee, three views Active 10/21/16 MARTY DUNN MD Encounters Encounter Location Arrival/Admit Date Discharge/Depart Date Attending Provider Departed Emergency Room [place] 10/21/16 8:52pm 10/22/16 12:28am MARTY DUNN MD Registered Referred [place] 10/15/16 3:35pm ESTEPHANIE MACHADO MD Departed Emergency Room [place] 10/07/16 4:17am 10/07/16 6:30am EDEL KYLE MD Registered Clinic [place] 10/05/16 7:06am ESTEPHANIE MACHADO MD Departed Emergency Room [place] 09/26/16 2:47am 09/26/16 7:05am LATASHA GONZALEZ D.O. Departed Emergency Room [place] 09/24/16 6:39pm 09/24/16 10:32pm LATASHA GONZALEZ D.O. Discharged Inpatient (obs) [place] 09/22/16 11:18pm 09/23/16 1:36pm ESTEPHANIE MACHADO MD Registered Referred [place] 09/14/16 3:48pm ESTEPHANIE MACHADO MD Registered Referred [place] 08/24/16 5:38pm CARY LUI APRN Recent Diagnosis
--- OUTSIDE RECORDS SUMMARY | 2018-07-10 18:59 | XMS REPORT | Continuity of Care Document ---
Author Author [facility] Organization [facility] Address [facility] [address] [place] [address] Phone Unavailable Support Name Relationship Address Phone LATASHA GONZALEZ D.O. Caregiver [address] [place] [address] ESTEPHANIE MACHADO MD Caregiver [address] [place] [address] SHMUEL FRANCOIS Next Of Kin [address] [place] [address] Insurance Providers Payer Name Policy Number Subscriber Name Relationship Medicare [id number] Misa Lund 19 Self / Same As Patient [facility] [id number] Misa Lund 18 Self / Same As Patient Advance Directives Directive Response Recorded Date/Time Do you have an Advanced Directive? No 07/10/15 10:01pm Advance Directives No 07/22/15 10:40pm Living Will No 07/22/15 10:40pm Health Care Proxy No 07/23/15 6:18pm Power of Heating And Ventilating Tender for Health Care No 07/22/15 10:40pm Organ, Tissue, or Eye Donor No 07/22/15 10:40pm Do you have a signed organ donor card? No 07/22/15 10:40pm Chief Complaint and Reason for Visit Chief Complaint CHEST PAIN Reason for Visit [id number] Chest wall pain Problems Active Problems Medical [...] Oral Three Times A Day 07/23/15 Acidophilus/Pectin, [place] 1 Each 1 Tab Oral Daily 07/23/15 [...] Status Current every day smoker 07/10/2015 10:20pm Query Response Start Date Stop Date Smoking Status Current every day smoker Hospital Discharge Instructions No hospital discharge instructions. Plan of Care Discharge Date 07/23/15 8:55pm Condition at Discharge Stable Instructions/Education Provided Chest Wall Pain (GEN) Prescriptions See Medication Section Referrals ETSEPHANIE MACHADO MD - 2 Weeks Additional Instructions/Education Take the medication twice daily and if the pain is not significantly improved in 2 weeks see her doctor for reevaluation Functional Status Query Response Date Recorded [place] Coma Scale Total 15 July 23, 2015 7:00pm Patient Behavior Cooperative July 23, 2015 7:00pm Allergies, Adverse Reactions, Alerts Allergen Type Severity [...] Vaccination No Historical Hx Pneumococcal Vaccination Y 2014 Historical Vital Signs Acute Vital Signs Vital Response Date/Time Temperature (Fahrenheit) 97.7 degrees F (97.6 - 99.5) 07/23/2015 8:52pm Temperature Source Temporal Artery 07/23/2015 8:52pm Pulse Rate (adult) 74 bpm (60 - 90) 07/23/2015 8:52pm Respiratory Rate 18 bpm (12 - 24) 07/23/2015 8:52pm Blood Pressure 119/66 mm Hg 07/23/2015 8:52pm O2 Sat by Pulse Oximetry 97 % (90 - 100) 07/23/2015 8:52pm Oxygen Delivery Method 07/23/2015 8:52pm Oxygen Flow Rate 2.0 L/min 07/11/2015 5:54am Pain Intensity 7 07/23/2015 8:55pm Pain Location Body Site Modifier 07/23/2015 8:55pm Pain Description Dull 07/23/2015 8:55pm Pain Duration > 6 Hours 07/23/2015 8:55pm Height 5 ft 3 in Weight 297 lb Body Mass Index 52.0 kg/m^2 Results Laboratory Results Test Name Result [...] Corpuscular Hemoglobin 31.5 pg H 27.0-31.0 06/21/2015 5:302014 5:41am Mean Corpuscular Hemoglobin Concent 33.0 g/dL 30.0-37.0 06/21/2015 5: 30am 06/21/2015 5:41am Red Cell Distribution Width 14.5 % 11.5-14.5 06/21/2015 5:30am 2014 5:41am Platelet Count 235 K/uL 130-400 06/21/2015 5:30am 06/21/2015 5:41am Mean Platelet Volume 7.2 fL L 7.4-10.4 06/21/2015 5:30am 06/21/2015 5: 41am Neutrophils (%) (Auto) 76.4 % H 42.2-75.2 06/21/2015 5:06/21/2015 5 :41am Lymphocytes (%) (Auto) 18.0 % L 20.5-51.1 06/21/2015 5:am 06/21/2015 5 :41am Monocytes (%) (Auto) 3.3 % 1.7-9.3 06/21/2015 5:06/21/2015 5:41am Eosinophils (%) (Auto) 2.0 % 0-3 06/21/2015 5:3006/21/2015 5:41am Basophils (%) (Auto) 0.3 % 0.0-1.0 06/21/2015 5:3006/21/2015 5:41am Neutrophils # (Auto) 12.1 K/uL H 2.0-6.9 06/21/2015 5:am 06/21/2015 5: 41am Lymphocytes # (Auto) 2.9 K/uL 1.2-3.4 06/21/2015 5:3006/21/2015 5: 41am Monocytes # (Auto) 0.5 K/uL 0.1-0.6 06/21/2015 5:06/21/2015 5: 41am Eosinophils # (Auto) 0.3 K/uL [...] Procedure Status Date Provider(s) ROUTINE VENIPUNCTURE Completed 06/21/15 CHEST X-RAY 1 VIEW FRONTAL Completed 06/21/15 COMPREHEN METABOLIC PANEL Completed 06/21/15 ASSAY OF CPK IN BLOOD Completed 06/21/15 ASSAY OF MYOGLOBIN Completed 06/21/15 ASSAY OF TROPONIN QUANT Completed 06/21/15 COMPLETE CBC AUTOMATED Completed 06/21/15 ELECTROCARDIOGRAM TRACING Completed 06/21/15 AIRWAY INHALATION TREATMENT Completed 06/21/15 THER/PROPH/DIAG INJ IV PUSH Completed 06/21/15 TX/PRO/DX INJ NEW DRUG ADDON Completed 06/21/15 EMERGENCY DEPT VISIT Completed 06/21/15 FENTANYL CITRATE INJECITON Completed 06/21/15 ALBUTEROL IPRATROP NON-COMP Completed 06/21/15 ROUTINE VENIPUNCTURE Completed 06/24/15 CHEST X-RAY 1 VIEW FRONTAL Completed 06/24/15 COMPREHEN METABOLIC PANEL Completed 06/24/15 ASSAY OF CPK IN BLOOD Completed 06/24/15 ASSAY OF MYOGLOBIN Completed 06/24/15 ASSAY OF TROPONIN QUANT Completed 06/24/15 COMPLETE CBC AUTOMATED Completed 06/24/15 PROTHROMBIN TIME Completed 06/24/15 ELECTROCARDIOGRAM TRACING Completed 06/24/15 EMERGENCY DEPT VISIT Completed 06/24/15 CHEST X-RAY 1 VIEW FRONTAL Completed 07/10/15 COMPREHEN METABOLIC PANEL Completed 07/10/15 ASSAY OF CK (CPK) Completed 07/10/15 ASSAY OF CPK IN BLOOD Completed 07/10/15 ASSAY OF CPK IN BLOOD Completed 07/10/15 ASSAY OF CPK IN BLOOD Completed 07/10/15 ASSAY OF MYOGLOBIN Completed 07/10/15 ASSAY OF MYOGLOBIN Completed 07/10/15 ASSAY OF MYOGLOBIN Completed 07/10/15 ASSAY OF TROPONIN QUANT Completed 07/10/15 ASSAY OF TROPONIN QUANT Completed 07/10/15 ASSAY OF TROPONIN QUANT Completed 07/10/15 COMPLETE CBC AUTOMATED Completed 07/10/15 PROTHROMBIN TIME Completed 07/10/15 ELECTROCARDIOGRAM TRACING Completed 07/10/15 ELECTROCARDIOGRAM TRACING Completed 07/10/15 MEASURE BLOOD OXYGEN LEVEL Completed 07/10/15 MEASURE BLOOD OXYGEN LEVEL Completed 07/10/15 MEASURE BLOOD OXYGEN LEVEL Completed 07/10/15 MEASURE BLOOD OXYGEN LEVEL Completed 07/10/15 THER/PROPH/DIAG INJ IV PUSH Completed 07/10/15 EMERGENCY DEPT VISIT Completed 07/10/15 HOSPITAL OBSERVATION PER HR Completed 07/10/15 HOSPITAL OBSERVATION PER HR Completed 07/10/15 HOSPITAL OBSERVATION PER HR Completed 07/10/15 Portable x-ray of chest Active 06/21/15 CARMELINA CHRISTINE DO Portable x-ray of chest Active 06/24/15 MARTY DUNN MD Portable x-ray of chest Active 07/10/15 JOAQUIN ROGERS MD Portable x-ray of chest Completed 07/22/15 ALEXEY BROOKS MD Encounters Encounter Location Arrival/Admit Date Discharge/Depart Date Attending Provider Departed Emergency Room [place] 07/23/15 6:29pm 07/23/15 8:55pm LATASHA GONZALEZ D.O. Departed Emergency Room [place] 07/22/15 10:34pm 07/22/15 11:15pm ALEXEY BROOKS MD Discharged Inpatient (obs) [place] 07/10/15 9:50pm 07/11/15 3:00pm STEPHENIE FERNANDEZ MD Departed Emergency Room [place] 06/24/15 7:54pm 06/24/15 10:27pm MARTY DUNN MD Departed Emergency Room [place] 06/21/15 5:07am 06/21/15 8:05am CARMELINA CHRISTINE DO Recent Diagnosis
--- OUTSIDE RECORDS SUMMARY | 2018-07-10 19:00 | XMS REPORT | Continuity of Care Document ---
Author Author [facility] Organization [facility] Address [facility] [address] [place] [address] Phone Unavailable Support Name Relationship Address Phone ESTEPHANIE MACHADO MD Caregiver [address] [place] [address] SHERIF SANCHEZ M.D. Caregiver [address] [place] [address] SHMUEL FRANCOIS Next Of Kin [address] [place] [address] Insurance Providers Payer Name Policy Number Subscriber Name Relationship Medicare [id number] Misa Lund 19 Self / Same As Patient [facility] [id number] Misa Lund 19 Self / Same As Patient Advance Directives Directive Response Recorded Date/Time Do you have an Advanced Directive? No 07/10/15 10:01pm Advance Directives No 11/16/16 3:46pm Living Will No 11/16/16 3:46pm Health Care Proxy No 02/22/17 11:46pm Power of Dispatcher Electric Power for Health Care No 11/16/16 3:46pm Organ, Tissue, or Eye Donor No 09/22/16 10:40pm Do you have a signed organ donor card? No 12/08/15 9:31pm Chief Complaint and Reason for Visit Chief Complaint CHEST WALL PAIN Reason for Visit Chest wall pain Problems [...] Oral Twice A Day 60 07/23/15 Acidophilus/Pectin, [place] 1 Each 1 Tab Oral Daily 07/23/15 Acetaminophen 500 Mg 1,000 Mg Oral Every 4 Hours As Needed 05/02/16 Amlodipine Besylate 5 Mg 5 Mg Oral Bedtime 30 09/22/16 Spironolactone 25 Mg 25 Mg Oral Every Three Days 09/22/16 Levothyroxine Sodium 200 Mcg 200 Mcg Oral Before Breakfast 30 09/22/16 Isosorbide Mononitrate 30 Mg 60 Mg Oral Bedtime 11/16/16 [Atrovent Estefania 0.0.6%] 2 [place] Nasal Twice A Day 11/16/16 Buspirone Hcl [...] 4-6 Hrs As Needed Pain 30 02/22/17 Past Home Medications Medication Directions Ordered Status [...] Oral Every Other Day 09/22/16 Discontinued Ipratropium [place] 0.5 Mg/2.5 Ml Nebu, 0.5-2.5 Mg Inhalation Twice A Day Discontinued Topiramate 100 Mg Tablet, 100 Mg Oral Twice A Day 09/22/16 Discontinued Sucralfate 1 G Tablet, 1 Gm Oral Four Times Daily 09/22/16 Discontinued Phenol/Glycerin 30 Ml [place], 5 [place] Nasal As Needed 09/22/16 Discontinued Hydroxyzine Hcl [...] Use Cigarettes 05/02/2016 3:40pm Alcohol Use none 02/23/2017 12:02am Drug Use none 02/23/2017 12:02am Query Response Start Date Stop Date Smoking Status Current every day smoker Hospital Discharge Instructions No hospital discharge instructions. Plan of Care Discharge Date 02/23/17 12:50am Condition at Discharge Stable Instructions/Education Provided Chest Wall Pain (ED) Prescriptions See Medication Section Referrals ESTEPHANIE MACHADO MD - 2-3 Days Functional Status Query Response Date Recorded [place] Coma Scale Total 15 February 23, 2017 12:09am Patient Behavior Cooperative Appropriate February 22, 2017 11:45pm Allergies, Adverse Reactions, Alerts Allergen Type Severity [...] (Fahrenheit) 97.7 degrees F (97.6 - 99.5) 02/23/2017 12:45am Temperature Source Temporal Artery 02/23/2017 12:45am Pulse Rate (adult) 66 bpm (60 - 90) 02/23/2017 12:45am Respiratory Rate 24 bpm (12 - 24) 02/23/2017 12:45am Blood Pressure 131/70 mm Hg 02/23/2017 12:45am O2 Sat by Pulse Oximetry 93 % (90 - 100) 02/23/2017 12:45am Oxygen Delivery Method 02/23/2017 12:45am Oxygen Flow Rate 2 L/min 02/19/2017 12:40am Pain Intensity 8 02/22/2017 11:28pm Pain Location Body Site Modifier 02/23/2017 12:10am Pain Description 02/23/2017 12:10am Pain Duration 15-30 Minutes 02/07/2017 11:42pm Height [...] Completed 02/19/17 FENTANYL CITRATE INJECITON Completed 02/19/17 Portable x-ray of chest Completed 01/04/17 SHERIF SANCHEZ M.D. Portable x-ray of chest Completed 02/07/17 ORION BOSE MD Portable x-ray of chest Completed 02/19/17 LATASHA GONZALEZ D.O. X-ray of chest, PA and lateral views Completed 02/23/17 SHERIF SANCHEZ M.D. Encounters Encounter Location Arrival/Admit Date Discharge/Depart Date Attending Provider Departed Emergency Room [place] 02/22/17 11:41pm 02/23/17 12:50am SHERIF SANCHEZ M.D. Departed Emergency Room [place] 02/22/17 12:03pm 02/22/17 2:45pm ALEXEY CYR MD Departed Emergency Room [place] 02/19/17 12:36am 02/19/17 2:50am LATASHA GONZALEZ D.O. Departed Emergency Room [place] 02/11/17 9:49pm 02/11/17 10:35pm LATASHA GONZALEZ D.O. Departed Emergency Room [place] 02/07/17 11:23pm 02/08/17 1:15am ORION BOSE MD Departed Emergency Room [place] 02/05/17 11:00pm 02/05/17 11:50pm HAILY EM DO Departed Emergency Room [place] 01/04/17 9:20pm 01/05/17 12:15am SHERIF SANCHEZ M.D. Registered Referred [place] 12/07/16 4:15pm JAY JAY WREN APRN Recent Diagnosis
--- OUTSIDE RECORDS SUMMARY | 2018-07-10 19:01 | XMS REPORT | Continuity of Care Document ---
Author Author [facility] Organization [facility] Address [facility] [address] [place] [address] Phone Unavailable Support Name Relationship Address Phone ESTEPHANIE MACHADO MD Caregiver [address] [place] [address] EDEL KYLE MD Caregiver [address] [place] [address] Unavailable SHMUEL FRANCOIS Next Of Kin [address] [place] [address] Insurance Providers Payer Name Policy Number Subscriber Name Relationship Medicare [id number] Misa Lund 18 Self / Same As Patient [place] [employer] [id number] Misa Lund 18 Self / Same As Patient Advance Directives Directive Response Recorded Date/Time Do you have an Advanced Directive? No 07/10/15 10:01pm Advance Directives No 09/22/16 10:40pm Living Will No 09/22/16 10:40pm Power of Tray Setter for Health Care No 09/22/16 10:40pm Organ, Tissue, or Eye Donor No 09/22/16 10:40pm Do you have a signed organ donor card? No 12/08/15 9:31pm Chief Complaint and Reason for Visit Chief Complaint CHEST PAIN Reason for Visit [id number] Chest wall pain Problems Active Problems Medical [...] Oral Three Times A Day 07/23/15 Acidophilus/Pectin, [place] 1 Each 1 Tab Oral Daily 07/23/15 [...] 200 Mcg Oral Daily 30 09/22/16 Ipratropium [place] 0.5 Mg/2.5 Ml 0.5-2.5 Mg Inhalation Twice A Day 09/22/16 Topiramate 100 Mg 100 Mg Oral Twice A Day 30 09/22/16 Sucralfate 1 G 1 Gm Oral Four Times Daily 09/22/16 Phenol/Glycerin 30 Ml 5 [place] Nasal As Needed 09/22/16 Hydroxyzine Hcl 50 Mg 50 Mg Oral As Needed 30 09/22/16 Magnesium Hydroxide 400 Mg/5 Ml 30 Ml Oral As Needed 09/22/16 Al Hydrox/Mg Hydrox/Simethicone 148 Ml 30 Ml Oral As Needed as needed for Indigestion 09/22/16 Guaifenesin/Dextromethorphan (Tussin Dm Max Liquid*) 118 Ml 5-10 Ml Oral Every 4 Hours 09/22/16 Warfarin Sodium 7.5 Mg 7.5 Mg Oral Daily 30 28/17 Warfarin Sodium 7.5 Mg 15 Mg Oral Daily 09/22/16 Mupirocin 22 Gm 22 Gm External Daily 09/22/16 Albuterol (Ventolin 17GM Hfa Inhaler*) 1 Puff 2 Puff Inhalation Every 6 Hours As Needed as needed for Wheezing 1 INHALE 2 PUFFS 09/24/16 Salmeterol Xinafoate/Fluticasone 1 Each 1 Puff Inhalation Twice A Day 1 ONE INHALATION 09/26/16 Prednisone 50 Mg 50 Mg Oral Daily 10/07/16 Past Home Medications Medication Directions Ordered Status [...] discharge instructions. Plan of Care Discharge Date 10/07/16 6:30am Condition at Discharge Stable Instructions/Education Provided Chest Pain (ED) Prescriptions See Medication Section Referrals ESTEPHANIE MACHADO MD - Additional Instructions/Education Return for any new or concerning symptoms. Follow up with your doctor in 1-2 days. Functional Status Query Response Date Recorded [place]is Coma Scale Total 15 October 07, 2016 4:20am Patient Behavior Cooperative October 07, 2016 4:20am Allergies, Adverse Reactions, Alerts Allergen Type Severity [...] Vaccination Unknown Historical Hx Influenza Vaccination N Doesn't take Historical Hx Pneumococcal Vaccination Yes Historical Hx Tetanus, Diphtheria Vaccination Yes Historical Hx Tetanus Toxoid Vaccination Yes Historical Vital Signs Acute Vital Signs Vital Response Date/Time Temperature (Fahrenheit) 98.2 degrees F (97.6 - 99.5) 10/07/2016 5:55am Temperature Source Temporal Artery 10/07/2016 5:55am Pulse Rate (adult) 78 bpm (60 - 90) 10/07/2016 5:55am Respiratory Rate 22 bpm (12 - 24) 10/07/2016 5:55am Blood Pressure 131/67 mm Hg 10/07/2016 5:55am O2 Sat by Pulse Oximetry 95 % (90 - 100) 10/07/2016 5:55am Oxygen Delivery Method 10/07/2016 5:55am Oxygen Flow Rate 2 L/min 09/26/2016 3:00am Pain Intensity 6 09/23/2016 8:10am Pain Location Body Site Modifier Medial 10/07/2016 5:15am Pain Description 10/07/2016 5:15am Height 5 ft 5 in Weight 318 lb Body Mass Index 53.0 kg/m^2 Results [...] PUSH Completed 09/22/16 TXPRODX INJ SAME DRUG ASSEMBLER INSULATOR Completed 09/22/16 EMERGENCY DEPT VISIT Completed 09/22/16 [...] Completed 09/26/16 ALBUTEROL IPRATROP NON-COMP Completed 09/26/16 Portable x-ray of chest Active 09/22/16 SHANELLE GARCIA MD Portable x-ray of chest Active 09/24/16 CARMELINA CHRISTINE DO Portable x-ray of chest Active 09/26/16 LATASHA GONZALEZ D.O. Persantine Carlos Alberto.perf.mult(Spect Completed 10/05/16 ESTEPHANIE MACHADO MD Portable x-ray of chest Completed 10/07/16 EDEL KYLE MD Encounters Encounter Location Arrival/Admit Date Discharge/Depart Date Attending Provider Departed Emergency Room [place] 10/07/16 4:17am 10/07/16 6:30am EDEL KYLE MD Registered Clinic [place] 10/05/16 7:06am ESTEPHANIE MACHADO MD Departed Emergency Room [place] 09/26/16 2:47am 09/26/16 7:05am LATASHA GONZALEZ D.O. Departed Emergency Room [place] 09/24/16 6:39pm 09/24/16 10:32pm LATASHA GONZALEZ D.O. Discharged Inpatient (obs) [place] 09/22/16 11:18pm 09/23/16 1:36pm ESTEPHANIE MACHADO MD Registered Referred [place] 09/14/16 3:48pm ESTEPHANIE MACHADO MD Registered Referred [place] 08/24/16 5:38pm CARY LUI APRN Recent Diagnosis
--- OUTSIDE RECORDS SUMMARY | 2018-07-10 19:02 | XMS REPORT | Continuity of Care Document ---
Author Author [facility] Organization [facility] Address [facility] [address] [place] [address] Phone Unavailable Support Name Relationship Address Phone ALEXEY BROOKS MD Caregiver [address] [place] [address] Unavailable SHMUEL FRANCOIS Next Of Kin [address] [place] [address] Insurance Providers Payer Name Policy Number Subscriber Name Relationship Medicare [id number] Misa Lund 18 Self / Same As Patient [place] [employer] [id number] Misa Lund 18 Self / Same As Patient Advance Directives Directive Response Recorded Date/Time Do you have an Advanced Directive? No 07/10/15 10:01pm Advance Directives No 07/22/15 10:40pm Living Will No 07/22/15 10:40pm Health Care Proxy No 07/22/15 10:40pm Power of Program Coordinator Executive Education for Health Care No 07/22/15 10:40pm Organ, [...] Oral Three Times A Day 07/23/15 Acidophilus/Pectin, [place] 1 Each 1 Tab Oral Daily 07/23/15 [...] Ea Transderm Every Three Days 10 07/23/15 Past Home Medications Medication Directions Ordered [...] Status Current every day smoker 07/10/2015 10:20pm Employment Retired 07/22/2015 11:00pm Query Response Start Date Stop Date Smoking Status Current every day smoker Hospital Discharge Instructions No hospital discharge instructions. Plan of Care Discharge Date 07/22/15 11:15pm Condition at Discharge Against Medical Advice Prescriptions See Medication Section Functional Status Query Response Date Recorded [place] Coma Scale Total July 22, 2015 11:15pm Allergies, Adverse Reactions, Alerts Allergen Type Severity [...] Tetanus Vaccination Unknown Historical Hx Influenza Vaccination Yes Historical Hx Pneumococcal Vaccination No Historical Vital Signs Acute Vital Signs Vital Response Date/Time Temperature (Fahrenheit) 98.6 degrees F (97.6 - 99.5) 07/22/2015 10:35pm Temperature Source Temporal Artery 07/22/2015 10:35pm Pulse Rate (adult) 78 bpm (60 - 90) 07/22/2015 11:10pm Respiratory Rate 18 bpm (12 - 24) 07/22/2015 11:10pm Blood Pressure 103/65 mm Hg 07/22/2015 11:10pm O2 Sat by Pulse Oximetry 96 % (90 - 100) 07/22/2015 11:10pm Oxygen Delivery Method 07/22/2015 11:10pm Oxygen Flow Rate 2.0 L/min 07/11/2015 5:54am Pain Intensity 5 07/22/2015 11:15pm Pain Location Body Site Modifier Lower 07/10/2015 10:20pm Pain Description 07/22/2015 11:15pm Pain Duration > 6 Hours 07/10/2015 10:20pm Height 5 ft 0 in Weight 297 lb Body Mass Index 58.0 kg/m^2 Results [...] Platelet Volume 7.2 fL L 7.4-10.4 06/21/2015 5:3006/21/2015 5: 41am Neutrophils (%) (Auto) 76.4 % [...] Basophils # (Auto) 0.1 K/uL 0.0-0.2 06/21/2015 5:3006/21/2015 5: 41am Random Glucose 108 mg/dL 70-110 06/21/2015 5:3006/21/2015 6:04am Blood Urea Nitrogen 11 mg/dL 7-18 06/21/2015 5:3006/21/2015 6:04am Creatinine 0.9 mg/dL 0.55-1.02 06/21/2015 5:30am [...] Discharge/Depart Date Attending Provider Departed Emergency Room [place] 07/22/15 10:34pm 07/22/15 11:15pm ALEXEY BROOKS MD Discharged Inpatient (obs) [place] 07/10/15 9:50pm 07/11/15 3:00pm STEPHENIE FERNANDEZ MD Departed Emergency Room [place] 06/24/15 7:54pm 06/24/15 10:27pm MARTY DUNN MD Departed Emergency Room [place] 06/21/15 5:07am 06/21/15 8:05am CARMELINA CHRISTINE DO Recent Diagnosis
--- OUTSIDE RECORDS SUMMARY | 2018-07-10 19:02 | XMS REPORT | Continuity of Care Document ---
Author Author [facility] Organization [facility] Address [facility] [address] [place] [address] Phone Unavailable Support Name Relationship Address Phone JAY JAY WREN CLINICAL DATA MANAGEMENT DIRECTOR Caregiver [address] [place] [address] HAILY EM DO Caregiver [address] [place] [address] SHMUEL FRANCOIS Next Of Kin [address] [place] [phone] Insurance Providers Guarantor Misa Lund Address [address] [place] [address] Payer Medicare Policy Number [id number] Subscriber's Name Misa Lund Relationship 18 Self / Same As Patient Payer [facility] Policy Number [id number] Subscriber's Name Misa Lund Relationship 18 Self / Same As Patient Advance Directives Directive Response Recorded Date/Time Do you have an Advanced Directive? No 07/10/15 10:01pm Advance Directives No 06/30/17 4:22am Living Will No 06/30/17 4:22am Health Care Proxy No 07/14/17 10:30pm Power of Restaurant Hourly Team Member for Health Care No 06/30/17 4:22am Organ, Tissue, or Eye Donor No 06/30/17 4:22am Do you have a signed organ donor card? No 12/08/15 9:31pm Chief Complaint and Reason for Visit Chief Complaint PAINFUL URINATION Reason for Visit [id number] Problems Medical Problem Onset Date Status Acute [...] Past Problems Medical Problem Onset Date Status UTI (urinary tract infection) Unknown Acute Urinary [...] Mg ORAL Twice A Day 60 Tablet Ciprofloxacin Hcl (Cipro 500 Mg Tab*) 500 Mg Tablet 500 Mg ORAL Twice A Day 10 Tablet 07/15/17 Duloxetine Hcl (Cymbalta*) 30 Mg Capsule.dr 30 [...] Every 4 Hours as needed for Cough Isosorbide Mononitrate (Imdur-Er 30 Mg*) 30 Mg [...] Twice A Day Phenol (Chloraseptic*) 177 Ml [place].pump 1 [place] ORAL Every 2 Hours As Needed Salon Pas/Lidocaine 1 Patch NOT APPLICABLE Daily Topiramate (Topamax 100 Mg Tab*) 100 Mg Tablet 100 Mg ORAL Twice A Day 30 Tablet Tramadol Hcl (Ultram 50 Mg Tab*) 50 Mg Tablet 50 Mg ORAL Four Times Daily 15 Tablet Trazodone Hcl (Desyrel*) 100 Mg Tablet 25 Mg ORAL Bedtime as needed for Insomnia Tylenol Arthritis 650 Mg ORAL Twice A Day Vancomycin Hcl 100 Gm Bulkbaginj 200 Mg Inhalation Twice A Day Warfarin 11 Mg ORAL Daily Past Home Medications Medication Directions Ordered Status Acetaminophen/Hydrocodone Bitart ([place] 7.5-325 Tab*) 1 Tab Tablet, 1 Each Oral Every 4 Hrs As Needed Pain as needed for Pain Discontinued Acetaminophen/Hydrocodone Bitart ([place] 7.5-325 Tab*) 1 Tab Tablet, 1 Each Oral Every 6 Hrs As Needed For Pain as needed for Pain 10/22/16 Discontinued Acetaminophen/Hydrocodone Bitart ([place] 7.5-325 Tab*) 1 Tab Tablet, 1 Each Oral Every 4 Hrs As Needed Pain for Pain Discontinued Acidophilus/Pectin, [place] (Acidophilus-Pectin [place]) 1 Each Tablet, 1 Tab [...] Daily Discontinued Atrovent Estefania 0.0.6% , 2 [place] Nasal Twice A Day Discontinued Biotin 2,500 [...] Mg Oral Daily As Needed Discontinued Ipratropium [place] (Atrovent*) 0.5 Mg/2.5 Ml Nebu, 0.5-2.5 Mg [...] Pain 02/22/17 Discontinued Phenol (Chloraseptic) 20 Ml [place], 20 Ml Oropharyngeal as needed for Throat Pain Discontinued Phenol/Glycerin (Chloraseptic Max [place]) 30 Ml [place], 5 [place] Nasal As Needed Discontinued Potassium Chloride (K-Dur [...] Times Daily Discontinued Dalia Boots , Discontinued Warfarin Sodium (Coumadin 7.5 Mg Tab*) [...] Not Applicable Not Applicable Alcohol Use none 07/15/2017 12:19am Not Applicable Not Applicable Drug Use none 07/15/2017 12:19am Not Applicable Not Applicable Smoking Status Start Date Stop Date Current every day smoker Hospital Discharge Instructions No hospital discharge instruction information available. Plan of Care Discharge Date 07/15/17 12:40am Condition at Discharge Stable Instructions/Education Provided Urinary Tract Infection in Women (ED) Prescriptions See Medication Section Referrals JAY JAY WREN APRN Address: [address] [place] [address] Functional Status Query Response Date Recorded [place] Coma Scale Total 15 July 14, 2017 10:30pm Patient Behavior Cooperative Appropriate July 14, 2017 10:30pm Allergies, Adverse Reactions, Alerts Allergen Type Severity Reaction Status Last Updated IODINE Allergy Unknown Active 07/07/17 Penicillin Allergy Unknown Active 07/07/17 Tetracyclines Allergy Unknown Active 07/07/17 SULFA (SULFONAMIDE ANTIBIOTICS) Allergy Unknown Active 07/07/17 Iodine Allergy Unknown Active 07/14/17 Morphine Allergy Unknown Active 07/07/17 Codeine Allergy Unknown Active 07/07/17 Oxycodone Allergy Unknown Active 07/14/17 Propoxyphene Allergy Unknown Active 07/07/17 Aspirin Allergy Unknown Active 07/07/17 Acetaminophen Allergy Unknown Active 07/14/17 Cephalexin Allergy Unknown Active 07/14/17 Erythromycin base Allergy Unknown Active 07/07/17 Diphenhydramine Allergy Unknown Active 07/07/17 Ketorolac Allergy Unknown Active 07/07/17 Banana Allergy Unknown Active 07/07/17 Fish Allergy Unknown Active 07/07/17 Mushrooms Allergy Unknown Active 07/07/17 DARVOCET Allergy Unknown Active 07/14/17 Immunizations Query Response on File Recorded Date/Time Hx Diphtheria, Pertussis, Tetanus Vaccination Unknown 07/14/17 10:30pm Hx Influenza Vaccination No 07/14/17 10:30pm Hx Pneumococcal Vaccination No 07/14/17 10:30pm Hx Tetanus, Diphtheria Vaccination Yes 09/22/16 8:27pm Hx Tetanus Toxoid Vaccination Yes 09/22/16 8:27pm Vital Signs Acute Vital Signs Vital Response Date/Time Temperature (Fahrenheit) 97.8 degrees F (97.6 - 99.5) 07/14/2017 10:30pm Temperature Source Temporal Artery 07/14/2017 10:30pm Pulse Rate (adult) 78 bpm (60 - 90) 07/15/2017 12:36am Respiratory Rate 20 bpm (12 - 24) 07/15/2017 12:36am Blood Pressure 132/68 mm Hg 07/15/2017 12:36am O2 Sat by Pulse Oximetry 96 % (90 - 100) 07/15/2017 12:36am Oxygen Delivery Method Room Air 07/15/2017 12:36am Oxygen Flow Rate 2.0 L/min 07/01/2017 7:49am Pain Intensity 2 07/07/2017 9:18pm Pain Location Body Site Modifier Lower 07/07/2017 10:40pm Pain Description Aching 07/07/2017 10:40pm Height 5 ft 5 in 07/14/2017 10:30pm Weight 288.59 lb 07/14/2017 10:30pm Body Mass Index 48.0 kg/m^2 07/14/2017 10:30pm Results Laboratory Results Test Name Result Units Flags Reference Collection Date/Time Result Date/ Time Comments Urine Amorphous Sediment 3+ H NEGATIVE 04/18/2017 [...] 97 U/L 65-230 06/30/2017 1:40am 06/30/2017 1:21am White Blood Count 9.7 K/uL 4.8-10.8 07/07/2017 9:50pm 07/07/2017 10: 02pm Red Blood Count 4.64 M/uL 4.20-5.40 07/07/2017 9:50pm 07/07/2017 10: 02pm Hemoglobin 11.7 gm/dL L 12.0-16.0 07/07/2017 9:50pm 07/07/2017 10:02pm Hematocrit 40.5 % 37.0-47.0 07/07/2017 9:50pm 07/07/2017 10:02pm Mean Corpuscular Volume 87.4 fL 81.0-99.0 07/07/2017 9:50pm 07/07/2017 10:02pm Mean Corpuscular Hemoglobin 25.2 pg L 27.0-31.0 07/07/2017 9:50pm 2016 10:02pm Mean Corpuscular Hemoglobin Concent 28.7 g/dL L 30.0-37.0 07/07/2017 9: 50pm 07/07/2017 10:02pm Red Cell Distribution Width 16.8 % H 11.5-14.5 07/07/2017 9:50pm 2016 10:02pm Platelet Count 260 K/uL 130-400 07/07/2017 9:50pm 07/07/2017 10:02pm Mean Platelet Volume 8.6 fL 7.4-10.4 07/07/2017 9:50pm 07/07/2017 10: 02pm Neutrophils (%) (Auto) 64.8 % 42.2-75.2 07/07/2017 [...] K/uL 0.0-0.2 07/07/2017 9:50pm 07/07/2017 10: 02pm Random Glucose 94 mg/dL 70-110 07/07/2017 9:50pm 07/07/2017 10:29pm Blood Urea Nitrogen 17 mg/dL 7-18 07/07/2017 9:50pm 07/07/2017 10:29pm Creatinine 0.8 mg/dL 0.55-1.02 07/07/2017 9:50pm 07/07/2017 10:29pm Sodium Level 143 mEq/L 136-145 07/07/2017 9:50pm 07/07/2017 10:29pm Potassium Level 3.6 mEq/L 3.5-5.0 07/07/2017 9:50pm 07/07/2017 10:29pm Chloride Level 109 mEq/L H 98-107 07/07/2017 9:50pm 07/07/2017 10:29pm Carbon Dioxide Level 25.3 mEq/L 21-32 07/07/2017 9:50pm 07/07/2017 10: 29pm Calcium Level 8.9 mg/dL 8.8-10.5 07/07/2017 9:50pm 07/07/2017 10:29pm Total Protein 7.4 gm/dL 6.4-8.2 07/07/2017 9:50pm 07/07/2017 10:29pm Albumin 2.9 gm/dL L 3.4-5.0 07/07/2017 9:50pm 07/07/2017 10:29pm Total Bilirubin 0.15 mg/dL 0.00-1.00 07/07/2017 9:50pm 07/07/2017 10: 29pm Aspartate Amino Transf (AST/SGOT) 14 U/L L 15-37 07/07/2017 9:50pm 07/07 10:29pm Alanine Aminotransferase (ALT/SGPT) 21 U/L 12-78 07/07/2017 9:50pm 07/2017 10:29pm Total Alkaline Phosphatase 131 U/L H 46-116 07/07/2017 9:50pm 2016 10:29pm Total Creatine Kinase 42 U/L 26-192 07/07/2017 9:50pm 07/07/2017 10: 29pm Creatine Kinase MB 0.6 ng/mL 0-3.6 07/07/2017 9:50pm 07/07/2017 10: 29pm Myoglobin 24.0 NG/ML 10.5-92.5 07/07/2017 9:50pm 07/07/2017 10:29pm Troponin I < 0.02 ng/mL 0.0-0.2 07/07/2017 9:50pm 07/07/2017 10:29pm Glomerular Filtration Rate Calc 73.2 mL/min 07/07/2017 9:50pm 2016 10:29pm Urine Color YELLOW YELLOW 07/14/2017 10:35pm 07/14/2017 11:08pm Urine Appearance CLEAR CLEAR 07/14/2017 10:35pm 07/14/2017 11:08pm Urine Glucose (UA) NEGATIVE mg/dL NEGATIVE 07/14/2017 10:35pm 2016 11:08pm Urine Bilirubin NEGATIVE NEGATIVE 07/14/2017 10:35pm 07/14/2017 11: 08pm Urine Ketones TRACE mg/dL H NEGATIVE 07/14/2017 10:35pm 07/14/2017 11: 08pm Urine Specific [place] 1.020 1.010-1.025 07/14/2017 10:35pm 2016 11:08pm Urine Occult Blood NEGATIVE NEGATIVE 07/14/2017 10:35pm 07/14/2017 11 :08pm Urine pH 7.0 5.0-8.0 07/14/2017 10:35pm 07/14/2017 11:08pm Urine Protein NEGATIVE mg/dL NEGATIVE 07/14/2017 10:35pm 07/14/2017 11: 08pm Urine Urobilinogen 1.0 mg/dL E.U./dL 0.2-1.0 07/14/2017 10:35pm 2016 11:08pm Urine Nitrate NEGATIVE NEGATIVE 07/14/2017 10:35pm 07/14/2017 11: 08pm Urine Leukocyte Esterase TRACE H NEGATIVE 07/14/2017 10:35pm 2016 11:08pm Urine RBC NEGATIVE /hpf 0 07/14/2017 10:35pm 07/14/2017 11:09pm Urine WBC 1-2 /hpf 0-4 07/14/2017 10:35pm 07/14/2017 11:09pm Urine Squamous Epithelial Cells 10-15 /hpf 0-1 07/14/2017 10:35pm 07/14 11:09pm Urine Bacteria TRACE NEGATIVE 07/14/2017 10:35pm 07/14/2017 11:09pm Urine Mucus FEW H NEGATIVE 07/14/2017 10:35pm 07/14/2017 11:09pm Microbiology Results Procedure Source Organism/Result Collection Date/Time Result Date/Time Result Status Urine Culture Urine,Random PROTEUS MIRABILIS 06/21/2017 7:25pm 06/24/2017 8:41am Final Urine Culture Urine,Catheterized PROTEUS MIRABILIS 06/30/2017 12:35am 02/2017 7:28am Final Blood Culture Blood NO GROWTH AFTER 5 DAYS 06/30/2017 1:43am 07/05/2017 2: 03am Final Procedures Procedure Status Date Provider(s) URINALYSIS AUTO WSCOPE Completed 04/18/17 PROTHROMBIN TIME [...] GROUND MILEAGE Completed 07/07/17 BLS-EMERGENCY Completed 07/07/17 Digital screening mammography of both breasts Completed 06/18/17 ESTEPHANIE MACHADO MD Computed tomography of abdomen and pelvis without contrast Completed SHANELLE GARCIA MD Portable x-ray of chest Completed 07/07/17 CARMELINA CHRISTINE DO Encounters Encounter Location Arrival/Admit Date Discharge/Depart Date Attending Provider Departed Emergency Room [facility] 07/14/17 10:29pm 07/15/17 12:40am HAILY EM DO Departed Emergency Room [facility] 07/07/17 9:20pm 07/07/17 10:40pm CARMELINA CHRISTINE DO Discharged Inpatient [facility] 06/30/17 3:44am 07/01/17 11:48am NICK BECK MD Registered Referred [facility] 06/21/17 9:06pm ESTEPHANIE MACHADO MD Registered Clinic [facility] 06/18/17 10:02am ESTEPHANIE MACHADO MD Registered Referred [facility] 06/08/17 7:29am ESTEPHANIE MACHADO MD Registered Referred [facility] 05/26/17 6:01pm ESTEPHANIE MACHADO MD Registered Referred [facility] 04/25/17 10:30pm ESTEPHANIE MACHADO MD Registered Referred [facility] 04/18/17 10:26pm ESTEPHANIE MACHADO MD Recent Diagnosis
--- OUTSIDE RECORDS SUMMARY | 2018-07-10 19:03 | XMS REPORT | Continuity of Care Document ---
Author Author [facility] Organization [facility] Address [facility] [address] [place] [address] Phone Unavailable Support Name Relationship Address Phone ESTEPHANIE MACHADO MD Caregiver [address] [place], [place] [address] BEATRICE TOUSSAINT MD Caregiver [address] [place] [address] Unavailable SHMUEL FRANCOIS Next Of Kin [address] [place], [place] [id number] Insurance Providers Payer Name Policy Number Subscriber Name Relationship Medicare [id number] Misa Lund 18 Self / Same As Patient [facility] [id number] Misa Lund 18 Self / Same As Patient Advance Directives Directive Response Recorded Date/Time Do you have an Advanced Directive? No 07/10/15 10:01pm Advance Directives No 11/16/16 3:46pm Living Will No 11/16/16 3:46pm Health Care Proxy No 03/10/17 5:48pm Power of Medical Lab Director for Health Care No 11/16/16 3:46pm Organ, Tissue, or Eye Donor No 09/22/16 10:40pm Do you have a signed organ donor card? No 12/08/15 9:31pm Chief Complaint and Reason for Visit Chief Complaint MUSCLE SPASMS Reason for Visit [id number] Problems Active Problems Medical Problem Onset Date [...] Muscle spasms of neck Unknown Acute Obesity (BMI 35.0-39.9 without comorbidity) [...] Oral Twice A Day 60 07/23/15 Acidophilus/Pectin, [place] 1 Each 1 Tab Oral Daily 07/23/15 [...] Every 4-6 Hrs As Needed Pain 02/22/17 Cyclobenzaprine Hcl (Flexeril*) 10 Mg 10 [...] Oral Every Other Day 09/22/16 Discontinued Ipratropium [place] 0.5 Mg/2.5 Ml Nebu, 0.5-2.5 Mg Inhalation [...] discharge instructions. Plan of Care Discharge Date 03/10/17 7:45pm Condition at Discharge Stable Instructions/Education Provided Muscle Spasm (ED) Prescriptions See Medication Section Referrals ESTEPHANIE MACHADO MD - Functional Status Query Response Date Recorded [place] Coma Scale Total 15 March 10, 2017 6:35pm Patient Behavior Cooperative Appropriate March 10, 2017 5:45pm Allergies, Adverse Reactions, Alerts Allergen Type Severity [...] Vital Signs Vital Response Date/Time Temperature (Fahrenheit) 98.9 degrees F (97.6 - 99.5) 03/10/2017 7:34pm Temperature Source Temporal Artery 03/10/2017 7:34pm Pulse Rate (adult) 75 bpm (60 - 90) 03/10/2017 7:34pm Respiratory Rate 20 bpm (12 - 24) 03/10/2017 7:34pm Blood Pressure 166/70 mm Hg 03/10/2017 7:34pm O2 Sat by Pulse Oximetry 95 % (90 - 100) 03/10/2017 7:34pm Oxygen Delivery Method 03/10/2017 7:34pm Oxygen Flow Rate 2 L/min 03/10/2017 7:34pm Pain Intensity 0 03/10/2017 5:40pm Pain Location Body Site Modifier 03/10/2017 7:20pm Pain Description 03/04/2017 4:31pm Pain Duration 15-30 Minutes 02/07/2017 11:42pm Height 5 ft 3 in Weight 324 lb Body Mass Index 57.0 kg/m^2 Results Laboratory Results Test Name Result Units Flags Reference Collection Date/Time Result Date/ Time Comments White Blood Count 9.8 K/uL 4.8-10.8 01/04/2017 10:01/04/2017 10: 26pm Red Blood Count 4.49 M/uL 4.20-5.40 01/04/2017 10:01/04/2017 10: 26pm Hemoglobin 12.5 gm/dL 12.0-16.0 01/04/2017 10:01/04/2017 10:26pm Hematocrit 40.4 % 37.0-47.0 01/04/2017 10:01/04/2017 10:26pm Mean Corpuscular Volume 89.9 fL 81.0-99.0 01/04/2017 10:2016 10:26pm Mean Corpuscular Hemoglobin 27.8 pg 27.0-31.0 01/04/2017 10:2016 10:26pm Mean Corpuscular Hemoglobin Concent 30.9 g/dL 30.0-37.0 01/04/2017 10: 01/04/2017 10:26pm Red Cell Distribution Width 14.9 % H 11.5-14.5 01/04/2017 10:2016 10:26pm Platelet Count 280 K/uL 130-400 01/04/2017 10:01/04/2017 10:26pm Mean Platelet Volume 7.9 fL 7.4-10.4 01/04/2017 10:01/04/2017 10: 26pm Neutrophils (%) (Auto) 70.3 % 42.2-75.2 01/04/2017 10:01/04/2017 10:26pm Lymphocytes (%) (Auto) 21.0 % 20.5-51.1 01/04/2017 10:01/04/2017 10:26pm Monocytes (%) (Auto) 5.7 % 1.7-9.3 01/04/2017 10:01/04/2017 10: 26pm Eosinophils (%) (Auto) 2.4 % 0-3 01/04/2017 10:01/04/2017 10:26pm Basophils (%) (Auto) 0.5 % 0.0-1.0 01/04/2017 10:01/04/2017 10: 26pm Neutrophils # (Auto) 6.9 K/uL 2.0-6.9 01/04/2017 10:20pm 01/04/2017 10: 26pm Lymphocytes # (Auto) 2.1 K/uL 1.2-3.4 01/04/2017 10:01/04/2017 10: 26pm Monocytes # (Auto) 0.6 K/uL 0.1-0.6 01/04/2017 10:01/04/2017 10: 26pm Eosinophils # (Auto) 0.2 K/uL 0.0-0.7 01/04/2017 10:pm 01/04/2017 10: 26pm Basophils # (Auto) 0.1 K/uL 0.0-0.2 01/04/2017 10:pm 01/04/2017 10: 26pm Prothrombin Time 18.5 SECONDS H 9.10-11.20 01/04/2017 10:pm 2016 10:35pm Prothromb Time International Ratio 1.85 H 0.9-1.1 01/04/2017 10:01/04/2017 10:35pm PLEASE NOTE REFERENCE RANGE Random Glucose 105 mg/dL 70-110 01/04/2017 10:pm 01/04/2017 10:33pm Blood Urea Nitrogen 14 mg/dL 7-18 01/04/2017 10:pm 01/04/2017 10: 33pm Creatinine 0.8 mg/dL 0.55-1.02 01/04/2017 10:pm 01/04/2017 10:33pm Sodium Level 148 mEq/L H 136-145 01/04/2017 10:01/04/2017 10:33pm Potassium Level 3.8 mEq/L 3.5-5.0 01/04/2017 10:01/04/2017 10: 33pm Chloride Level 112 mEq/L H 98-107 01/04/2017 10:pm 01/04/2017 10:33pm Carbon Dioxide Level 27.6 mEq/L 21-32 01/04/2017 10:pm 01/04/2017 10: 33pm Calcium Level 8.5 mg/dL L 8.8-10.5 01/04/2017 10:20pm 01/04/2017 10: 33pm Total Protein 7.2 gm/dL 6.4-8.2 01/04/2017 10:20pm 01/04/2017 11:05pm Albumin 2.7 gm/dL L 3.4-5.0 01/04/2017 10:20pm 01/04/2017 11:05pm Total Bilirubin 0.19 mg/dL 0.00-1.00 01/04/2017 10:20pm 01/04/2017 11: 05pm Aspartate Amino Transf (AST/SGOT) 8 U/L L 15-37 01/04/2017 10:20pm 01/04 11:05pm Alanine Aminotransferase (ALT/SGPT) 18 U/L 12-78 01/04/2017 10:20pm 07/2017 11:05pm Total Alkaline Phosphatase 139 U/L H 46-116 01/04/2017 10:20pm 2016 11:05pm Creatine Kinase MB 0.9 ng/mL 0-3.6 01/04/2017 10:20pm 01/04/2017 11: 05pm Myoglobin 29.0 NG/ML 10.5-92.5 01/04/2017 10:20pm 01/04/2017 11:05pm Troponin I < 0.02 ng/mL 0.0-0.2 01/04/2017 10:20pm 01/04/2017 11:05pm Glomerular Filtration Rate Calc 77.8 mL/min 01/04/2017 10:20pm 2016 10:33pm Pending Laboratory Results Test Name Collection Date/Time Procedures Procedure Status Date Provider(s) CHEST X-RAY 1 VIEW FRONTAL Completed 01/04/17 [...] GROUND MILEAGE Completed 03/04/17 BLS-EMERGENCY Completed 03/04/17 X-RAY EXAM OF PELVIS Completed 03/05/17 X-RAY EXAM OF KNEE 1 OR 2 Completed 03/05/17 X-RAY EXAM OF KNEES Completed 03/05/17 X-RAY EXAM OF ANKLE Completed 03/05/17 Portable x-ray of chest Completed 01/04/17 SHERIF [...] Discharge/Depart Date Attending Provider Departed Emergency [facility] [place] 03/10/17 5:44pm 03/10/17 7:45pm BEATRICE TOUSSAINT MD Departed Emergency Room [place] 03/06/17 6:36pm 03/06/17 8:45pm LATASHA GONZALEZ D.O. Registered [facility] 03/05/17 2:38pm MILY JONES APRN Departed Emergency Room [place] 03/04/17 3:33pm 03/04/17 4:00pm CARMELINA CHRISTINE DO Departed Emergency Room [place] 02/28/17 10:12pm 02/28/17 10:40pm CARMELINA CHRISTINE DO Registered [facility] 02/28/17 8:45am TRIAGE, EMS Departed Emergency Room [place] 02/22/17 11:41pm 02/23/17 12:50am SHERIF SANCHEZ M.D. Departed Emergency Room [place] 02/22/17 12:03pm 02/22/17 2:45pm ALEXEY CYR MD Departed Emergency [facility] [place] 02/19/17 12:36am 02/19/17 2:50am LATASHA GONZALEZ D.O. Departed Emergency [facility] [place] 02/11/17 9:49pm 02/11/17 10:35pm LATASHA GONZALEZ D.O. Departed Emergency [facility] [place] 02/07/17 11:23pm 02/08/17 1:15am ORION BOSE MD Departed Emergency [facility] [place] 02/05/17 11:00pm 02/05/17 11:50pm HAILY EM DO Departed Emergency Room [place] 01/04/17 9:20pm 01/05/17 12:15am SHERIF SANCHEZ M.D. Recent Diagnosis
--- OUTSIDE RECORDS SUMMARY | 2018-07-10 19:06 | XMS REPORT | Continuity of Care Document ---
Author Author [facility] Organization [facility] Address [facility] [address] [place] [address] Phone Unavailable Support Name Relationship Address Phone ESTEPHANIE MACHADO MD Caregiver [address] [place] [address] YAMILKA LOWE MD Caregiver [address] [place] [address] SHMUEL FRANCOIS Next Of Kin [address] [place] [address] Insurance Providers Guarantor Misa Lund Address [address] [place] [address] Payer Medicare Policy Number [id number] Subscriber's Name Misa Lund Relationship 18 Self / Same As Patient Payer [facility] Policy Number [id number] Subscriber's Name Misa Lund Relationship 18 Self / Same As Patient Advance Directives Directive Response Recorded Date/Time Do you have an Advanced Directive? No 07/10/15 10:01pm Advance Directives No 06/30/17 4:22am Living Will No 06/30/17 4:22am Health Care Proxy No 12/28/17 9:29pm Power of Product Tester Fiberglass for Health Care No 06/30/17 4:22am Organ, Tissue, or Eye Donor No 06/30/17 4:22am Do you have a signed organ donor card? No 12/08/15 9:31pm Chief Complaint and Reason for Visit Chief Complaint SHORTNESS OF BREATH Reason for Visit Dyspnea Problems Medical Problem Onset Date Status [...] Mg ORAL Every 4 Hours As Needed Albuterol Sulfate (Ventolin Concentrate 2.5 Mg/ 0.5 [...] Tablet 25 Mg ORAL Bedtime 60 Tablet Isosorbide Mononitrate (Imdur-Er 30 Mg*) [...] Capsule.dr 20 Mg ORAL Twice A Day Topiramate (Topamax 100 Mg Tab*) 100 Mg Tablet 100 Mg ORAL Twice A Day 30 Tablet Vancomycin Hcl 100 Gm Bulkbaginj 160 Mg NASAL Twice A Day Warfarin Sodium (Coumadin 10 Mg Tab*) 10 Mg Tablet 10 Mg ORAL Daily 30 Tablet Past Home Medications Medication Directions Ordered Status Acetaminophen/Hydrocodone Bitart ([place] 7.5-325 Tab*) 1 Tab Tablet, 1 Each Oral Every 4 Hrs As Needed Pain as needed for Pain Discontinued Acetaminophen/Hydrocodone Bitart ([place] 7.5-325 Tab*) 1 Tab Tablet, 1 Each Oral Every 6 Hrs As Needed For Pain as needed for Pain 10/22/16 Discontinued Acetaminophen/Hydrocodone Bitart ([place] 7.5-325 Tab*) 1 Tab Tablet, 1 Each Oral Every 4 Hrs As Needed Pain for Pain Discontinued Acidophilus/Pectin, [place] (Acidophilus-Pectin [place]) 1 Each Tablet, 1 Tab [...] Daily Discontinued Atrovent Estefania 0.0.6% , 2 [place] Nasal Twice A Day Discontinued Azithromycin (Z-Pasha*) [...] Mg Oral Daily As Needed Discontinued Ipratropium [place] (Atrovent*) 0.5 Mg/2.5 Ml Nebu, 0.5-2.5 Mg [...] Pain 02/22/17 Discontinued Phenol (Chloraseptic*) 177 Ml [place].pump, 1 [place] Oral Every 2 Hours As Needed Discontinued Phenol (Chloraseptic) 20 Ml [place], 20 Ml Oropharyngeal as needed for Throat Pain Discontinued Phenol/Glycerin (Chloraseptic Max [place]) 30 Ml [place], 5 [place] Nasal As Needed Discontinued Potassium Chloride (K-Dur [...] information available. Plan of Care Discharge Date 12/28/17 11:55pm Condition at Discharge Stable Instructions/Education Provided Dyspnea (ED) Prescriptions See Medication Section Additional Instructions/Education Follow up with your PCP within 1 week Functional Status Query Response Date Recorded [place] Coma Scale Total 15 December 28, 2017 10:11pm Patient Behavior Cooperative Appropriate December 28, 2017 9:30pm Allergies, Adverse Reactions, Alerts Allergen Type Severity Reaction Status Last Updated IODINE Allergy Unknown Active 10/26/17 Penicillin Allergy Unknown Active 10/26/17 Tetracyclines Allergy Unknown Active 10/26/17 SULFA (SULFONAMIDE ANTIBIOTICS) Allergy Unknown Active 10/26/17 Iodine Allergy Unknown Active 10/26/17 Morphine Allergy Unknown Active 10/26/17 Codeine Allergy Unknown Active 10/26/17 Oxycodone Allergy Unknown Active 10/26/17 Propoxyphene Allergy Unknown Active 10/26/17 Aspirin Allergy Unknown Active 10/26/17 Cephalexin Allergy Unknown Active 10/26/17 Erythromycin base Allergy Unknown Active 10/26/17 Diphenhydramine Allergy Unknown Active 10/26/17 Ketorolac Allergy Unknown Active 10/26/17 Banana Allergy Unknown Active 10/26/17 Fish Allergy Unknown Active 10/26/17 Mushrooms Allergy Unknown Active 10/26/17 Immunizations Query Response on File Recorded Date/Time Hx Diphtheria, Pertussis, Tetanus Vaccination Unknown 12/28/17 9:30pm Hx Influenza Vaccination No 12/28/17 9:30pm Hx Pneumococcal Vaccination No 12/28/17 9:30pm Hx Tetanus, Diphtheria Vaccination No 10/26/17 9:15pm Hx Tetanus Toxoid Vaccination Yes 09/22/16 8:27pm Vital Signs Acute Vital Signs Vital Response Date/Time Temperature (Fahrenheit) 98.9 degrees F (97.6 - 99.5) 12/28/2017 11:45pm Temperature Source Temporal Artery 12/28/2017 11:45pm Pulse Rate (adult) 71 bpm (60 - 90) 12/28/2017 11:45pm Respiratory Rate 18 bpm (12 - 24) 12/28/2017 11:45pm Blood Pressure 134/63 mm Hg 12/28/2017 11:45pm O2 Sat by Pulse Oximetry 93 % (90 - 100) 12/28/2017 11:45pm Oxygen Delivery Method Room Air 12/28/2017 11:45pm Pain Intensity 0 12/28/2017 9:18pm Pain Location Body Site Modifier Left 10/26/2017 10:24pm Pain Description Aching 10/26/2017 10:24pm Height 5 ft 5 in 12/28/2017 9:30pm Weight 271.17 lb 12/28/2017 9:30pm Body Mass Index 45.0 kg/m^2 12/28/2017 9:30pm Results Laboratory Results Test Name Result Units Flags Reference Collection Date/Time Result Date/ Time Comments Vancomycin Level Trough 12.4 mcg/mL 5.0-15.0 10/14/2017 11:00am 2017 1:00pm Prothrombin Time 11.1 SECONDS 9.10-11.20 10/26/2017 9:48pm 10/26/2017 10:13pm Prothromb Time International Ratio 1.08 0.9-1.1 10/26/2017 9:48pm 10/2017 10:13pm PLEASE NOTE REFERENCE RANGE Glomerular Filtration Rate Calc 85.1 mL/min 10/26/2017 9:48pm 2017 10:13pm Total Creatine Kinase 37 U/L 26-192 12/01/2017 8:30pm 12/01/2017 9: 05pm B-Type Natriuretic Peptide 94 pg/mL 10-227 12/01/2017 8:30pm 2017 9:05pm 50-75 years of age NT-proBNP values <300 [...] age in the absence of renal failure. Stl C. difficile DNA Amplification NEGATIVE NEGATIVE 12/26/2017 9: 40am 12/26/2017 4:23pm White Blood Count 11.2 K/uL H 4.8-10.8 12/28/2017 9:50pm 12/28/2017 9: 59pm Red Blood Count 5.00 M/uL 4.20-5.40 12/28/2017 9:50pm 12/28/2017 9: 59pm Hemoglobin 12.5 gm/dL 12.0-16.0 12/28/2017 9:50pm 12/28/2017 9:59pm Hematocrit 40.8 % 37.0-47.0 12/28/2017 9:50pm 12/28/2017 9:59pm Mean Corpuscular Volume 81.7 fL 81.0-99.0 12/28/2017 9:50pm 12/28/2017 9:59pm Mean Corpuscular Hemoglobin 24.9 pg L 27.0-31.0 12/28/2017 9:50pm 2017 9:59pm Mean Corpuscular Hemoglobin Concent 30.5 g/dL 30.0-37.0 12/28/2017 9: 50pm 12/28/2017 9:59pm Red Cell Distribution Width 15.5 % H 11.5-14.5 12/28/2017 9:50pm 2017 9:59pm Platelet Count 330 K/uL 130-400 12/28/2017 9:50pm 12/28/2017 9:59pm Mean Platelet Volume 8.9 fL 7.4-10.4 12/28/2017 9:50pm 12/28/2017 9: 59pm Neutrophils (%) (Auto) 66.2 % 42.2-75.2 12/28/2017 9:50pm 12/28/2017 9: 59pm Lymphocytes (%) (Auto) 26.1 % 20.5-51.1 12/28/2017 9:50pm 12/28/2017 9: 59pm Monocytes (%) (Auto) 4.8 % 0-10 12/28/2017 9:50pm 12/28/2017 9:59pm Eosinophils (%) (Auto) 2.2 % 0-3 12/28/2017 9:50pm 12/28/2017 9:59pm Basophils (%) (Auto) 0.6 % 0.0-1.0 12/28/2017 9:50pm 12/28/2017 9:59pm Neutrophils # (Auto) 7.4 K/uL H 2.0-6.9 12/28/2017 9:50pm 12/28/2017 9: 59pm Lymphocytes # (Auto) 2.9 K/uL 1.2-3.4 12/28/2017 9:50pm 12/28/2017 9: 59pm Monocytes # (Auto) 0.5 K/uL 0.1-0.6 12/28/2017 9:50pm 12/28/2017 9: 59pm Eosinophils # (Auto) 0.3 K/uL 0.0-0.7 12/28/2017 9:50pm 12/28/2017 9: 59pm Basophils # (Auto) 0.1 K/uL 0.0-0.2 12/28/2017 9:50pm 12/28/2017 9: 59pm Random Glucose 98 mg/dL 70-110 12/28/2017 9:50pm 12/28/2017 10:09pm Blood Urea Nitrogen 13 mg/dL 7-18 12/28/2017 9:50pm 12/28/2017 10:09pm Creatinine 0.8 mg/dL 0.55-1.02 12/28/2017 9:50pm 12/28/2017 10:09pm Glomerular Filtration Rate Calc 72.9 mL/min 12/28/2017 9:50pm 2017 10:09pm Sodium Level 141 mEq/L 136-145 12/28/2017 9:50pm 12/28/2017 10:09pm Potassium Level 3.4 mEq/L L 3.5-5.0 12/28/2017 9:50pm 12/28/2017 10: 09pm Chloride Level 105 mEq/L 98-107 12/28/2017 9:50pm 12/28/2017 10:09pm Carbon Dioxide Level 26.2 mEq/L 21-32 12/28/2017 9:50pm 12/28/2017 10: 09pm Calcium Level 8.8 mg/dL 8.8-10.5 12/28/2017 9:50pm 12/28/2017 10:09pm Total Protein 7.7 gm/dL 6.4-8.2 12/28/2017 9:50pm 12/28/2017 10:37pm Albumin 2.8 gm/dL L 3.4-5.0 12/28/2017 9:50pm 12/28/2017 10:37pm Total Bilirubin 0.20 mg/dL 0.00-1.00 12/28/2017 9:50pm 12/28/2017 10: 37pm Aspartate Amino Transf (AST/SGOT) 6 U/L L 15-37 12/28/2017 9:50pm 2017 10:37pm Alanine Aminotransferase (ALT/SGPT) 12 U/L 12-78 12/28/2017 9:50pm 12/2017 10:37pm Total Alkaline Phosphatase 144 U/L H 46-116 12/28/2017 9:50pm 2017 10:37pm Creatine Kinase MB 1.1 ng/mL 0-3.6 12/28/2017 9:50pm 12/28/2017 10: 37pm Myoglobin 31.0 NG/ML 10.5-92.5 12/28/2017 9:50pm 12/28/2017 10:37pm Troponin I < 0.02 ng/mL 0.0-0.2 12/28/2017 9:50pm 12/28/2017 10:37pm Procedures Procedure Status Date Provider(s) ASSAY OF VANCOMYCIN Completed 10/10/17 ASSAY OF VANCOMYCIN Completed 10/12/17 ASSAY OF VANCOMYCIN Completed 10/14/17 ASSAY OF CREATININE Completed 10/14/17 ASSAY OF UREA NITROGEN Completed 10/14/17 X-RAY EXAM CHEST 1 VIEW Completed 10/26/17 [...] GROUND MILEAGE Completed 12/01/17 ALS1-EMERGENCY Completed 12/01/17 Portable x-ray of chest Completed 10/26/17 HAILY EM DO Portable x-ray of chest Completed 12/01/17 CARMELINA CHRISTINE DO Portable x-ray of chest Completed 12/28/17 YAMILKA LOWE MD Encounters Encounter Location Arrival/Admit Date Discharge/Depart Date Attending Provider Departed Emergency Room [place] 12/28/17 9:25pm 12/28/17 11:55pm YAMILKA LOWE MD Registered Referred [facility] 12/26/17 10:53am ESTEPHANIE MACHADO MD Departed Emergency Room [place] 12/01/17 8:05pm 12/01/17 9:25pm CARMELINA CHRISTINE DO Departed Emergency Room [place] 10/26/17 9:15pm 10/26/17 11:48pm HAILY EM DO Registered Referred [place] 10/14/17 12:02pm ESTEPHANIE MACHADO MD Registered Clinic [place] 10/12/17 11:32am ESTEPHANIE MACHADO MD Registered Referred [place] 10/10/17 12:40pm ESTEPHANIE MACHADO MD Recent Diagnosis
--- OUTSIDE RECORDS SUMMARY | 2018-07-10 19:08 | XMS REPORT | Continuity of Care Document ---
Author Author [facility] Organization [facility] Address [facility] [address] [place] [address] Phone Unavailable Support Name Relationship Address Phone MARTY DUNN MD Caregiver [address] [place] [address] Unavailable CARMELINA CHRISTINE DO Caregiver [address] [place] [address] Unavailable SHMUEL FRANCOIS Next Of Kin [address] [place] [address] Advance Directives Directive Response Recorded Date/Time Advance Directives No 06/24/15 8:45pm Living Will No 06/24/15 8:45pm Health Care Proxy No 06/24/15 8:45pm Power of Dextrine Mixer for Health Care No 06/24/15 8:45pm Organ, Tissue, or Eye Donor No 06/24/15 8:44pm Do you have a signed organ donor card? No 06/24/15 8:44pm Chief Complaint and Reason for Visit Chief Complaint CHEST PAIN Reason for Visit [id number] Chest wall pain Problems Active Problems Medical Problem Onset Date Status Acute exacerbation of chronic obstructive pulmonary disease (COPD) Unknown Acute Chest wall pain Unknown Acute Medications Current Home Medications Medication Dose Units Route Directions Days/Qty Instructions Start Date Levofloxacin 750 Mg 750 Mg Oral Daily 10 06/21/15 Albuterol Sulfate 2.5 Mg/3 Ml 2.5 Mg Inhalation Every 4-6 Hours As Needed as needed for Shortness Of Breath 30 As needed for Wheezing/Asthma 06/21/15 Prednisone 10 Mg 50 Mg Oral Daily 25 06/21/15 Warfarin Sodium 6 Mg 12 Mg Oral Every Other Day 30 06/25/15 Warfarin Sodium 7.5 Mg 7.5 Mg Oral Every Other Day 30 06/25/15 Trazodone Hcl 150 Mg 150 Mg Oral [...] 10 Meq 10 Meq Oral Daily 06/25/15 Prazosin Hcl 2 Mg 1 Mg Oral Bedtime 06/25/15 Levothyroxine Sodium 150 Mcg 150 Mcg Oral Daily 30 06/25/15 Topiramate 100 Mg 100 Mg Oral Twice A Day 30 06/25/15 Acetaminophen/Hydrocodone Bitart ([place] 7.5-325 Tab*) 1 Tab 1 Each Oral Every 4 Hrs As Needed Pain for Pain 15 06/25/15 Aripiprazole 10 Mg 10 Mg Oral [...] Oral Three Times A Day 90 06/25/15 Social History No social history. Hospital Discharge Instructions No hospital discharge instructions. Plan of Care Discharge Date 06/24/15 10:27pm Condition at Discharge Stable Instructions/Education Provided Chest Pain (ED) Chest Wall Pain (ED) Prescriptions See Medication Section Additional Instructions/Education Your INR was elevated at 4. Please hold your next does of Coumadin. Have your INR rechecked next week. Follow up with your primary care physician in 1-2 days. Functional Status Query Response Date Recorded [place] Coma Scale Total 15 June 24, 2015 10:25pm Patient Behavior Appropriate June 24, 2015 7:55pm Allergies, Adverse Reactions, Alerts Allergen Type Severity Reaction Status Last Updated IODINE Allergy Unknown Active 06/25/15 Penicillin Allergy Unknown Active 06/25/15 Cephalosporins Allergy Unknown Active 06/25/15 Tetracyclines Allergy Unknown Active 06/25/15 SULFA (SULFONAMIDE ANTIBIOTICS) Allergy Unknown Active 06/25/15 Morphine Allergy Unknown Active 06/25/15 Codeine Allergy Unknown Active 06/25/15 Aspirin Allergy Unknown Active 06/25/15 Erythromycin base Allergy Unknown Active 06/25/15 Diphenhydramine Allergy Unknown Active 06/25/15 Ketorolac Allergy Unknown Active 06/25/15 Immunizations Name Given Type Hx Diphtheria, Pertussis, Tetanus Vaccination Unknown Historical Hx Influenza Vaccination No Historical Hx Pneumococcal Vaccination No Historical Vital Signs Acute Vital Signs Vital Response Date/Time Temperature (Fahrenheit) 98.1 degrees F (97.6 - 99.5) 06/24/2015 10:25pm Temperature Source Temporal Artery 06/24/2015 10:25pm Pulse Rate (adult) 80 bpm (60 - 90) 06/24/2015 10:25pm Respiratory Rate 20 bpm (12 - 24) 06/24/2015 10:25pm Blood Pressure 154/83 mm Hg 06/24/2015 10:25pm O2 Sat by Pulse Oximetry 95 % (90 - 100) 06/24/2015 10:25pm Oxygen Delivery Method 06/24/2015 10:25pm Pain Intensity 4 06/24/2015 10:27pm Pain Location Body Site Modifier 06/24/2015 10:27pm Pain Description 06/24/2015 7:55pm Pain Duration > 6 Hours 06/21/2015 5:04am Height 5 ft 3 in Weight 296 lb Body Mass Index 52.0 kg/m^2 Results [...] CHRISTINE DO Portable x-ray of chest Completed 06/24/15 MARTY DUNN MD Encounters Encounter Location Arrival/Admit Date Discharge/Depart Date Attending Provider Departed Emergency Room [place] 06/24/15 7:54pm 06/24/15 10:27pm MARTY DUNN MD Departed Emergency Room [place] 06/21/15 5:07am 06/21/15 8:05am CARMELINA CHRISTINE DO Recent Diagnosis
--- OUTSIDE RECORDS SUMMARY | 2018-07-10 19:10 | XMS REPORT | Continuity of Care Document ---
Author Author [facility] Organization [facility] Address [facility] [address] [place] [address] Phone Unavailable Support Name Relationship Address Phone ESTEPHANIE MACHADO MD Caregiver [address] [place] [address] TRE WREN DO Caregiver [address] [place] [address] SHMUEL FRANCOIS Next Of Kin [address] [place] [address] Insurance Providers Guarantor Misa Lund Address [address] [place] [address] Payer Medicare Policy Number [id number] Subscriber's Name Misa Lund Relationship 18 Self / Same As Patient Payer [facility] Policy Number [id number] Subscriber's Name Misa Lund Relationship 18 Self / Same As Patient Advance Directives Directive Response Recorded Date/Time Do you have an Advanced Directive? No 07/10/15 10:01pm Advance Directives No 06/30/17 4:22am Living Will No 06/30/17 4:22am Health Care Proxy No 12/30/17 10:22am Power of Solid Waste Disposal Manager for Health Care No 06/30/17 4:22am Organ, Tissue, or Eye Donor No 06/30/17 4:22am Do you have a signed organ donor card? No 12/08/15 9:31pm Chief Complaint and Reason for Visit Chief Complaint OTHER Reason for Visit Diarrhea Problems Medical Problem Onset Date Status Acute [...] 4 Hours As Needed Discontinued Acetaminophen/Hydrocodone Bitart ([place] 7.5-325 Tab*) 1 Tab Tablet, 1 Each Oral Every 4 Hrs As Needed Pain as needed for Pain Discontinued Acetaminophen/Hydrocodone Bitart ([place] 7.5-325 Tab*) 1 Tab Tablet, 1 Each Oral Every 6 Hrs As Needed For Pain as needed for Pain 10/22/16 Discontinued Acetaminophen/Hydrocodone Bitart ([place] 7.5-325 Tab*) 1 Tab Tablet, 1 Each Oral Every 4 Hrs As Needed Pain for Pain Discontinued Acidophilus/Pectin, [place] (Acidophilus-Pectin [place]) 1 Each Tablet, 1 Tab [...] Daily Discontinued Atrovent Estefania 0.0.6% , 2 [place] Nasal Twice A Day Discontinued Azithromycin (Z-Pasha*) [...] Mg Oral Daily As Needed Discontinued Ipratropium [place] (Atrovent*) 0.5 Mg/2.5 Ml Nebu, 0.5-2.5 Mg [...] Pain 02/22/17 Discontinued Phenol (Chloraseptic*) 177 Ml [place].pump, 1 [place] Oral Every 2 Hours As Needed Discontinued Phenol (Chloraseptic) 20 Ml [place], 20 Ml Oropharyngeal as needed for Throat Pain Discontinued Phenol/Glycerin (Chloraseptic Max [place]) 30 Ml [place], 5 [place] Nasal As Needed Discontinued Potassium Chloride (K-Dur [...] information available. Plan of Care Discharge Date 12/30/17 3:16pm Disposition 01 HOME, LONGTERM,ASSISTED LIVING Condition at Discharge Improved Instructions/Education Provided Chronic Diarrhea (DC) Prescriptions See Medication Section Additional Instructions/Education Did not take any dairy or greasy foods until followed up with her primary care doctor. Drink liquids and a bland diet until followed up by her primary care doctor. Followup if stools is bloody or increased weakness. Functional Status Query Response Date Recorded Aris Coma Scale Total 15 December 30, 2017 10:20am Patient Behavior Appropriate December 30, 2017 10:20am Allergies, Adverse Reactions, Alerts Allergen Type Severity [...] Date/Time Hx Diphtheria, Pertussis, Tetanus Vaccination Unknown 12/30/17 10:20am Hx Influenza Vaccination No 12/30/17 10:20am Hx Pneumococcal Vaccination Y - 5yrs ago 12/30/17 10:20am Hx Tetanus, Diphtheria Vaccination No 10/26/17 9:15pm Hx Tetanus Toxoid Vaccination Yes 09/22/16 8:27pm Vital Signs Acute Vital Signs Vital Response Date/Time Temperature (Fahrenheit) 97.2 degrees F (97.6 - 99.5) 12/30/2017 10:25am Temperature Source Temporal Artery 12/30/2017 10:25am Pulse Rate (adult) 66 bpm (60 - 90) 12/30/2017 3:15pm Respiratory Rate 22 bpm (12 - 24) 12/30/2017 3:15pm Blood Pressure 166/86 mm Hg 12/30/2017 3:15pm O2 Sat by Pulse Oximetry 93 % (90 - 100) 12/30/2017 3:15pm Oxygen Delivery Method Room Air 12/30/2017 3:15pm Pain Intensity 0 12/28/2017 9:18pm Pain Location Body Site Modifier Left 10/26/2017 10:24pm Pain Description Aching 10/26/2017 10:24pm Height 5 ft 5 in 12/30/2017 10:20am Weight 273.37 lb 12/30/2017 10:20am Body Mass Index 45.0 kg/m^2 12/30/2017 10:20am Results Laboratory Results Test Name Result Units [...] absence of renal failure. Creatine Kinase MB 1.1 ng/mL 0-3.6 12/28/2017 9:50pm 12/28/2017 10: 37pm Myoglobin 31.0 NG/ML 10.5-92.5 12/28/2017 9:50pm 12/28/2017 10:37pm Troponin I < 0.02 ng/mL 0.0-0.2 12/28/2017 9:50pm 12/28/2017 10:37pm White Blood Count 8.7 K/uL 4.8-10.8 12/30/2017 10:58am 12/30/2017 11: 26am Red Blood Count 5.13 M/uL 4.20-5.40 12/30/2017 10:58am 12/30/2017 11: 26am Hemoglobin 12.7 gm/dL 12.0-16.0 12/30/2017 10:58am 12/30/2017 11:26am Hematocrit 42.3 % 37.0-47.0 12/30/2017 10:58am 12/30/2017 11:26am Mean Corpuscular Volume 82.5 fL 81.0-99.0 12/30/2017 10:58am 2017 11:26am Mean Corpuscular Hemoglobin 24.7 pg L 27.0-31.0 12/30/2017 10:58am 12/30 11:26am Mean Corpuscular Hemoglobin Concent 30.0 g/dL 30.0-37.0 12/30/2017 10: 58am 12/30/2017 11:26am Red Cell Distribution Width 16.5 % H 11.5-14.5 12/30/2017 10:58am 2017 11:26am Platelet Count 327 K/uL 130-400 12/30/2017 10:58am 12/30/2017 11:26am Mean Platelet Volume 7.9 fL 7.4-10.4 12/30/2017 10:58am 12/30/2017 11: 26am Neutrophils (%) (Auto) 65.5 % 42.2-75.2 12/30/2017 10:58am 12/30/2017 11:26am Lymphocytes (%) (Auto) 26.4 % 20.5-51.1 12/30/2017 10:58am 12/30/2017 11:26am Monocytes (%) (Auto) 5.4 % 0-10 12/30/2017 10:58am 12/30/2017 11:26am Eosinophils (%) (Auto) 1.7 % 0-3 12/30/2017 10:58am 12/30/2017 11:26am Basophils (%) (Auto) 1.1 % H 0.0-1.0 12/30/2017 10:58am 12/30/2017 11: 26am Neutrophils # (Auto) 5.7 K/uL 2.0-6.9 12/30/2017 10:58am 12/30/2017 11: 26am Lymphocytes # (Auto) 2.3 K/uL 1.2-3.4 12/30/2017 10:58am 12/30/2017 11: 26am Monocytes # (Auto) 0.5 K/uL 0.1-0.6 12/30/2017 10:58am 12/30/2017 11: 26am Eosinophils # (Auto) 0.2 K/uL 0.0-0.7 12/30/2017 10:58am 12/30/2017 11: 26am Basophils # (Auto) 0.1 K/uL 0.0-0.2 12/30/2017 10:58am 12/30/2017 11: 26am Stool for White Cells POSITIVE 12/30/2017 11:36am 12/30/2017 12: 46pm 3-4 WBCs / HPF Random Glucose 105 mg/dL 70-110 12/30/2017 10:58am 12/30/2017 11:26am Blood Urea Nitrogen 13 mg/dL 7-18 12/30/2017 10:58am 12/30/2017 11: 26am Creatinine 0.8 mg/dL 0.55-1.02 12/30/2017 10:58am 12/30/2017 11:26am Glomerular Filtration Rate Calc 72.9 mL/min 12/30/2017 10:58am 2017 11:26am Sodium Level 142 mEq/L 136-145 12/30/2017 10:58am 12/30/2017 11:26am Potassium Level 3.9 mEq/L 3.5-5.0 12/30/2017 10:58am 12/30/2017 11: 26am Chloride Level 107 mEq/L 98-107 12/30/2017 10:58am 12/30/2017 11:26am Carbon Dioxide Level 26.3 mEq/L 21-32 12/30/2017 10:58am 12/30/2017 11: 26am Calcium Level 8.8 mg/dL 8.8-10.5 12/30/2017 10:58am 12/30/2017 11:26am Total Protein 8.0 gm/dL 6.4-8.2 12/30/2017 10:58am 12/30/2017 11:26am Albumin 2.9 gm/dL L 3.4-5.0 12/30/2017 10:58am 12/30/2017 11:26am Total Bilirubin 0.14 mg/dL 0.00-1.00 12/30/2017 10:58am 12/30/2017 11: 26am Aspartate Amino Transf (AST/SGOT) 6 U/L L 15-37 12/30/2017 10:58am 12/30 11:26am Alanine Aminotransferase (ALT/SGPT) 13 U/L 12-78 12/30/2017 10:58am 02/2018 11:26am Total Alkaline Phosphatase 160 U/L H 46-116 12/30/2017 10:58am 2017 11:26am Stl C. difficile DNA Amplification NEGATIVE NEGATIVE 12/30/2017 11: 36am 12/30/2017 1:57pm Procedures Procedure Status Date Provider(s) ASSAY OF [...] of chest Completed 12/30/17 TRE WREN DO Encounters Encounter Location Arrival/Admit Date Discharge/Depart Date Attending Provider Departed Emergency Room [place] 12/30/17 10:14am 12/30/17 3:16pm TRE WREN DO Departed Emergency Room [place] 12/28/17 9:25pm 12/28/17 11:55pm YAMILKA LOWE MD Registered Referred [place] 12/26/17 10:53am ESTEPHANIE MACHADO MD Departed Emergency Room [place] 12/01/17 8:05pm 12/01/17 9:25pm CARMELINA CHRISTINE DO Departed Emergency Room [place] 10/26/17 9:15pm 10/26/17 11:48pm HAILY EM DO Registered Referred [place] 10/14/17 12:02pm ESTEPHANIE MACHADO MD Registered Clinic [place] 10/12/17 11:32am ESTEPHANIE MACHADO MD Registered Referred [place] 10/10/17 12:40pm ESTEPHANIE MACHADO MD Recent Diagnosis
--- OUTSIDE RECORDS SUMMARY | 2018-07-10 19:11 | XMS REPORT | Continuity of Care Document ---
Author Author [facility] Organization [facility] Address [facility] [address] [place] [address] Phone Unavailable Support Name Relationship Address Phone LATASHA GONZALEZ D.O. Caregiver [address] [place] [address] ESTEPHANIE MACHADO MD Caregiver [address] [place] [address] SHMUEL FRANCOIS Next Of Kin [address] [place] [address] Insurance Providers Payer Name Policy Number Subscriber Name Relationship Medicare [id number] Misa Lund 18 Self / Same As Patient [facility] [id number] Misa Lund 18 Self / Same As Patient Advance Directives Directive Response Recorded Date/Time Do you have an Advanced Directive? No 07/10/15 10:01pm Advance Directives No 11/16/16 3:46pm Living Will No 11/16/16 3:46pm Health Care Proxy No 03/11/17 8:18pm Power of Inserter for Health Care No 11/16/16 3:46pm Organ, Tissue, or Eye Donor No 09/22/16 10:40pm Do you have a signed organ donor card? No 12/08/15 9:31pm Chief Complaint and Reason for Visit Chief Complaint BACK PAIN OR INJURY Reason for Visit [id number] Obesity Problems Active Problems Medical Problem Onset Date [...] Spasm of thoracic back muscle Unknown Acute Medications Current Home Medications Medication Dose Units Route Directions Days/Qty Instructions Start Date Aripiprazole 10 Mg 10 Mg Oral Bedtime 30 06/25/15 Duloxetine Hcl 30 Mg 30 Mg Oral Bedtime 30 06/25/15 Duloxetine Hcl 60 Mg 60 Mg Oral Daily Am 30 07/23/15 Carbamazepine 200 Mg 200 Mg Oral Twice A Day 60 07/23/15 Acidophilus/Pectin, [place] 1 Each 1 Tab Oral Daily 07/23/15 Acetaminophen 500 Mg 1,000 Mg Oral Every 4 Hours As Needed 05/02/16 Amlodipine Besylate 5 Mg 5 Mg Oral Bedtime 30 09/22/16 Spironolactone 25 Mg 25 Mg Oral Every Three Days 09/22/16 Levothyroxine Sodium 200 Mcg 200 Mcg Oral Before Breakfast 30 09/22/16 Isosorbide Mononitrate 30 Mg 60 Mg Oral Bedtime 11/16/16 [Atrovent Estefania 0.0.6%] 2 [place] Nasal Twice A Day 11/16/16 Buspirone Hcl [...] 100 Mg Oral Twice A Day 03/06/17 Diazepam 5 Mg 5 Mg Oral Twice A Day 03/11/17 Past Home Medications Medication Directions Ordered Status [...] Oral Every Other Day 09/22/16 Discontinued Ipratropium [place] 0.5 Mg/2.5 Ml Nebu, 0.5-2.5 Mg Inhalation Twice A Day Discontinued Topiramate 100 Mg Tablet, 100 Mg Oral Twice A Day 09/22/16 Discontinued Sucralfate 1 G Tablet, 1 Gm Oral Four Times Daily 09/22/16 Discontinued Phenol/Glycerin 30 Ml [place], 5 [place] Nasal As Needed 09/22/16 Discontinued Hydroxyzine Hcl [...] Use Cigarettes 05/02/2016 3:40pm Alcohol Use none 03/11/2017 8:45pm Drug Use none 03/11/2017 8:45pm Employment Retired 03/11/2017 8:45pm Query Response Start Date Stop Date Smoking Status Current every day smoker Hospital Discharge Instructions No hospital discharge instructions. Plan of Care Discharge Date 03/11/17 9:15pm Condition at Discharge Stable Instructions/Education Provided Muscle Spasm (ED) Prescriptions See Medication Section Referrals ESTEPHANIE MACHADO MD - 2-3 Days Additional Instructions/Education Take the medication twice daily and then followup with your provider to discuss the benefit. Make an appointment to see one of the providers on for dressing change on your legs. Make an appointment with Dr. Graves for reevaluation of her knee and scheduling of your knee replacement. Functional Status Query Response Date Recorded Aris Coma Scale Total 15 March 11, 2017 8:40pm Patient Behavior Cooperative Appropriate March 11, 2017 8:10pm Allergies, Adverse Reactions, Alerts Allergen Type Severity [...] (Fahrenheit) 98.9 degrees F (97.6 - 99.5) 03/11/2017 9:10pm Temperature Source Temporal Artery 03/11/2017 9:10pm Pulse Rate (adult) 79 bpm (60 - 90) 03/11/2017 9:10pm Respiratory Rate 20 bpm (12 - 24) 03/11/2017 9:10pm Blood Pressure 149/58 mm Hg 03/11/2017 9:10pm O2 Sat by Pulse Oximetry 92 % (90 - 100) 03/11/2017 9:10pm Oxygen Delivery Method 03/11/2017 9:10pm Oxygen Flow Rate 2 L/min 03/10/2017 7:34pm Pain Intensity 10 03/11/2017 8:40pm Pain Location Body Site Modifier 03/11/2017 8:40pm Pain Description 03/11/2017 8:40pm Pain Duration 15-30 Minutes 02/07/2017 11:42pm Height 5 ft 3 in Weight 324 lb Body Mass Index 57.0 kg/m^2 Results Laboratory Results Test Name Result Units Flags Reference Collection Date/Time Result Date/ Time Comments White Blood Count 9.8 K/uL 4.8-10.8 01/04/2017 10:20pm 01/04/2017 10: 26pm Red Blood Count 4.49 M/uL 4.20-5.40 01/04/2017 10:20pm 01/04/2017 10: 26pm Hemoglobin 12.5 gm/dL 12.0-16.0 01/04/2017 10:01/04/2017 10:26pm Hematocrit 40.4 % 37.0-47.0 01/04/2017 10:2001/04/2017 10:26pm Mean Corpuscular Volume 89.9 fL 81.0-99.0 01/04/2017 10:20pm 2016 10:26pm Mean Corpuscular Hemoglobin 27.8 pg 27.0-31.0 01/04/2017 10:20pm 2016 10:26pm Mean Corpuscular Hemoglobin Concent 30.9 g/dL 30.0-37.0 01/04/2017 10: 2001/04/2017 10:26pm Red Cell Distribution Width 14.9 % H 11.5-14.5 01/04/2017 10:20pm 2016 10:26pm Platelet Count 280 K/uL 130-400 01/04/2017 10:20pm 01/04/2017 10:26pm Mean Platelet Volume 7.9 fL 7.4-10.4 01/04/2017 10:20pm 01/04/2017 10: 26pm Neutrophils (%) (Auto) 70.3 % 42.2-75.2 01/04/2017 10:01/04/2017 10:26pm Lymphocytes (%) (Auto) 21.0 % 20.5-51.1 01/04/2017 10:01/04/2017 10:26pm Monocytes (%) (Auto) 5.7 % 1.7-9.3 01/04/2017 10:01/04/2017 10: 26pm Eosinophils (%) (Auto) 2.4 % 0-3 01/04/2017 10:01/04/2017 10:26pm Basophils (%) (Auto) 0.5 % 0.0-1.0 01/04/2017 10:01/04/2017 10: 26pm Neutrophils # (Auto) 6.9 K/uL 2.0-6.9 01/04/2017 10:01/04/2017 10: 26pm Lymphocytes # (Auto) 2.1 K/uL 1.2-3.4 01/04/2017 10:01/04/2017 10: 26pm Monocytes # (Auto) 0.6 K/uL 0.1-0.6 01/04/2017 10:01/04/2017 10: 26pm Eosinophils # (Auto) 0.2 K/uL 0.0-0.7 01/04/2017 10:01/04/2017 10: 26pm Basophils # (Auto) 0.1 K/uL 0.0-0.2 01/04/2017 10:pm 01/04/2017 10: 26pm Prothrombin Time 18.5 SECONDS H 9.10-11.20 01/04/2017 10:2016 10:35pm Prothromb Time International Ratio 1.85 H 0.9-1.1 01/04/2017 10:01/04/2017 10:35pm PLEASE NOTE REFERENCE RANGE Random Glucose 105 mg/dL 70-110 01/04/2017 10:pm 01/04/2017 10:33pm Blood Urea Nitrogen 14 mg/dL 7-18 01/04/2017 10:pm 01/04/2017 10: 33pm Creatinine 0.8 mg/dL 0.55-1.02 01/04/2017 10:01/04/2017 10:33pm Sodium Level 148 mEq/L H 136-145 01/04/2017 10:20pm 01/04/2017 10:33pm Potassium Level 3.8 mEq/L 3.5-5.0 01/04/2017 10:20pm 01/04/2017 10: 33pm Chloride Level 112 mEq/L H 98-107 01/04/2017 10:20pm 01/04/2017 10:33pm Carbon Dioxide Level 27.6 mEq/L 21-32 01/04/2017 10:pm 01/04/2017 10: 33pm Calcium Level 8.5 mg/dL L 8.8-10.5 01/04/2017 10:pm 01/04/2017 10: 33pm Total Protein 7.2 gm/dL 6.4-8.2 01/04/2017 10:pm 01/04/2017 11:05pm Albumin 2.7 gm/dL L 3.4-5.0 01/04/2017 10:pm 01/04/2017 11:05pm Total Bilirubin 0.19 mg/dL 0.00-1.00 01/04/2017 10:01/04/2017 11: 05pm Aspartate Amino Transf (AST/SGOT) 8 U/L L 15-37 01/04/2017 10:pm 01/04 11:05pm Alanine Aminotransferase (ALT/SGPT) 18 U/L 12-78 01/04/2017 10:pm 07/2017 11:05pm Total Alkaline Phosphatase 139 U/L H 46-116 01/04/2017 10:2016 11:05pm Creatine Kinase MB 0.9 ng/mL 0-3.6 01/04/2017 10:01/04/2017 11: 05pm Myoglobin 29.0 NG/ML 10.5-92.5 01/04/2017 10:01/04/2017 11:05pm Troponin I < 0.02 ng/mL 0.0-0.2 01/04/2017 10:01/04/2017 11:05pm Glomerular Filtration Rate Calc 77.8 mL/min 01/04/2017 10:2016 10:33pm Pending Laboratory Results Test Name Collection [...] 03/05/17 X-RAY EXAM OF ANKLE Completed 03/05/17 ROUTINE VENIPUNCTURE Completed 03/06/17 CHEST X-RAY 1 VIEW FRONTAL Completed 03/06/17 COMPREHEN METABOLIC PANEL Completed 03/06/17 COMPLETE CBC AUTOMATED Completed 03/06/17 THERPROPHDIAG INJ SCIM Completed 03/06/17 EMERGENCY DEPT VISIT Completed 03/06/17 GROUND MILEAGE Completed 03/06/17 BLS-EMERGENCY Completed 03/06/17 ORPHENADRINE INJECTION Completed 03/06/17 Portable x-ray of chest Completed 01/04/17 SHERIF [...] Discharge/Depart Date Attending Provider Departed Emergency Room [place] 03/11/17 8:11pm 03/11/17 9:15pm LATASHA GONZALEZ D.O. Departed Emergency Room [place] 03/10/17 5:44pm 03/10/17 7:45pm BEATRICE TOUSSAINT MD Departed Emergency Room [place] 03/06/17 6:36pm 03/06/17 8:45pm LATASHA GONZALEZ D.O. Registered Clinic [place] 03/05/17 2:38pm MILY JONES APRN Departed Emergency Room [place] 03/04/17 3:33pm 03/04/17 4:00pm CARMELINA CHRISTINE DO Departed Emergency Room [place] 02/28/17 10:12pm 02/28/17 10:40pm CARMELINA CHRISTINE DO Registered Clinic [place] 02/28/17 8:45am TRIAGE, EMS Departed Emergency Room [place] 02/22/17 11:41pm 02/23/17 12:50am SHERIF SANCHEZ M.D. Departed Emergency Room [place] 02/22/17 12:03pm 02/22/17 2:45pm ALEXEY CYR MD Departed Emergency Room [place] 02/19/17 12:36am 02/19/17 2:50am LATASHA GONZALEZ D.O. Departed Emergency Room [place] 02/11/17 9:49pm 02/11/17 10:35pm LATASHA GONZALEZ D.O. Departed Emergency Room [place] 02/07/17 11:23pm 02/08/17 1:15am ORION BOSE MD Departed Emergency Room [place] 02/05/17 11:00pm 02/05/17 11:50pm HAILY EM DO Departed Emergency Room [place] 01/04/17 9:20pm 01/05/17 12:15am SHERIF SANCHEZ M.D. Recent Diagnosis
--- OUTSIDE RECORDS SUMMARY | 2018-07-10 19:14 | XMS REPORT | Continuity of Care Document ---
Author Author [facility] Organization [facility] Address [facility] [address] [place] [address] Phone Unavailable Support Name Relationship Address Phone ESTEPHANIE MACHADO MD Caregiver [address] [place], [place] [address] CARMELINA CHRISTINE DO Caregiver [address] [place] [address] Unavailable SHMUEL FRANCOIS Next Of Kin [address] [place], [place] [address] Insurance Providers Guarantor Misa Lund Address [address] [place] [address] Payer Medicare Policy Number [id number] Subscriber's Name Misa Lund Relationship 18 Self / Same As Patient Payer [facility] Policy Number [id number] Subscriber's Name Misa Lund Relationship 18 Self / Same As Patient Advance Directives Directive Response Recorded Date/Time Do you have an Advanced Directive? No 07/10/15 10:01pm Advance Directives No 06/30/17 4:22am Living Will No 06/30/17 4:22am Health Care Proxy No 07/07/17 9:20pm Power of Handle Turner for Health Care No 06/30/17 4:22am Organ, Tissue, or Eye Donor No 06/30/17 4:22am Do you have a signed organ donor card? No 12/08/15 9:31pm Chief Complaint and Reason for Visit Chief Complaint CHEST PAIN Reason for Visit Chest wall pain Problems Medical Problem Onset Date Status [...] ORAL Every 4 Hours As Needed Acidophilus/Pectin, [place] (Acidophilus-Pectin [place]) 1 Each Tablet 1 Tab [...] Twice A Day Phenol (Chloraseptic*) 177 Ml [place].pump 1 [place] ORAL Every 2 Hours As Needed Replens [...] Medications Medication Directions Ordered Status Acetaminophen/Hydrocodone Bitart ([place] 7.5-325 Tab*) 1 Tab Tablet, 1 Each Oral Every 4 Hrs As Needed Pain as needed for Pain Discontinued Acetaminophen/Hydrocodone Bitart ([place] 7.5-325 Tab*) 1 Tab Tablet, 1 Each Oral Every 6 Hrs As Needed For Pain as needed for Pain 10/22/16 Discontinued Acetaminophen/Hydrocodone Bitart ([place] 7.5-325 Tab*) 1 Tab Tablet, 1 Each [...] Daily Discontinued Atrovent [place]ef[place] 0.0.6% , 2 [place] Nasal Twice A Day Discontinued Biotin 2,500 [...] 50 Mg Oral As Needed Discontinued Ipratropium [place] (Atrovent*) 0.5 Mg/2.5 Ml Nebu, 0.5-2.5 Mg [...] Pain 02/22/17 Discontinued Phenol (Chloraseptic) 20 Ml [place], 20 Ml Oropharyngeal as needed for Throat Pain Discontinued Phenol/Glycerin (Chloraseptic Max [place]) 30 Ml [place], 5 [place] Nasal As Needed Discontinued Potassium Chloride (K-Dur [...] Not Applicable Not Applicable Alcohol Use none 07/07/2017 9:59pm Not Applicable Not Applicable Drug Use none 07/07/2017 9:59pm Not Applicable Not Applicable Smoking Status Start Date Stop Date Current every day smoker Hospital Discharge Instructions No hospital discharge instruction information available. Plan of Care Discharge Date 07/07/17 10:40pm Condition at Discharge Stable Instructions/Education Provided Chest Pain (ED) Prescriptions See Medication Section Referrals ESTEPHANIE MACHADO MD Address: [address] [place] [id number] Functional Status Query Response Date Recorded Aris Coma Scale Total 15 July 07, 2017 10:09pm Patient Behavior Cooperative July 07, 2017 9:20pm Allergies, Adverse Reactions, Alerts Allergen Type Severity Reaction Status Last Updated IODINE Allergy Unknown Active 07/07/17 Penicillin Allergy Unknown Active 07/07/17 Tetracyclines Allergy Unknown Active 07/07/17 SULFA (SULFONAMIDE ANTIBIOTICS) Allergy Unknown Active 07/07/17 Morphine Allergy Unknown Active 07/07/17 Codeine Allergy Unknown Active 07/07/17 Propoxyphene Allergy Unknown Active 07/07/17 Aspirin Allergy Unknown Active 07/07/17 Erythromycin base Allergy Unknown Active 07/07/17 Diphenhydramine Allergy Unknown Active 07/07/17 Ketorolac Allergy Unknown Active 07/07/17 Banana Allergy Unknown Active 07/07/17 Fish Allergy Unknown Active 07/07/17 Mushrooms Allergy Unknown Active 07/07/17 Immunizations Query Response on File Recorded Date/Time Hx Diphtheria, Pertussis, Tetanus Vaccination Unknown 06/30/17 12:15am Hx Influenza Vaccination N - Doesn't take 07/07/17 9:20pm Hx Pneumococcal Vaccination Yes 07/07/17 9:20pm Hx Tetanus, Diphtheria Vaccination Yes 09/22/16 8:27pm Hx Tetanus Toxoid Vaccination Yes 09/22/16 8:27pm Vital Signs Acute Vital Signs Vital Response Date/Time Temperature (Fahrenheit) 97.1 degrees F (97.6 - 99.5) 07/07/2017 10:20pm Temperature Source Temporal Artery 07/07/2017 10:20pm Pulse Rate (adult) 77 bpm (60 - 90) 07/07/2017 10:20pm Respiratory Rate 17 bpm (12 - 24) 07/07/2017 10:20pm Blood Pressure 156/92 mm Hg 07/07/2017 10:20pm O2 Sat by Pulse Oximetry 93 % (90 - 100) 07/07/2017 10:20pm Oxygen Delivery Method Room Air 07/07/2017 10:20pm Oxygen Flow Rate 2.0 L/min 07/01/2017 7:49am Pain Intensity 2 07/07/2017 9:18pm Pain Location Body Site Modifier Left 07/07/2017 10:00pm Pain Description Sharp 07/07/2017 10:00pm Height 5 ft 5 in 07/07/2017 9:08pm Weight 288.81 lb 07/07/2017 9:20pm Body Mass Index 48.0 kg/m^2 07/07/2017 9:20pm Results Laboratory Results Test Name Result Units [...] 06/30/2017 12:35am 06/30/2017 1: 04am Urine Specific [place] 1.015 1.010-1.025 06/30/2017 12:35am 2016 1:04am Urine [...] MODERATE H NEGATIVE 06/30/2017 12:35am 06/30/2017 1:05am White Blood Count 9.7 K/uL 4.8-10.8 07/07/2017 [...] Calc 73.2 mL/min 07/07/2017 9:50pm 2016 10:29pm Microbiology Results Procedure Source Organism/Result Collection Date/Time Result Date/Time Result Status Urine Culture Urine,Random PROTEUS MIRABILIS 06/21/2017 7:25pm 06/24/2017 8:41am Final Urine Culture Urine,Catheterized PROTEUS MIRABILIS 06/30/2017 12:35am 02/2017 7:28am Final Blood Culture Blood NO GROWTH AFTER 5 DAYS 06/30/2017 1:43am 07/05/2017 2: 03am Final Procedures Procedure Status Date Provider(s) APPLY MULTLAY [...] Discharge/Depart Date Attending Provider Departed Emergency Room [place] 07/07/17 9:20pm 07/07/17 10:40pm CARMELINA CHRISTINE DO Discharged Inpatient [facility] 06/30/17 3:44am 07/01/17 11:48am NICK BECK MD Registered Referred [facility] 06/21/17 9:06pm ESTEPHANIE MACHADO MD Registered Clinic [facility] 06/18/17 10:02am ESTEPHANIE MACHADO MD Registered Referred [facility] 06/08/17 7:29am ESTEPHANIE MACHADO MD Registered Referred [facility] 05/26/17 6:01pm ESTEPHANIE MACHADO MD Registered Referred [facility] 04/25/17 10:30pm ESTEPHANIE MACHADO MD Registered Referred [facility] 04/18/17 10:26pm ESTEPHANIE MACHADO MD Registered Referred [facility] 04/10/17 1:16pm ESTEPHANIE MACHADO MD Discharged Recurring [facility] 03/22/17 10:25am 04/15/17 3:45pm ESTEPHANIE MACHADO MD Recent Diagnosis
--- OUTSIDE RECORDS SUMMARY | 2018-07-10 19:18 | XMS REPORT | Continuity of Care Document ---
Author Author [facility] Organization [facility] Address [facility] [address] [place] [address] Phone Unavailable Support Name Relationship Address Phone ESTEPHANIE MACHADO MD Caregiver [address] [place] [address] SHERIF SANCHEZ M.D. Caregiver [address] [place] [address] SHMUEL FRANCOIS Next Of Kin [address] [place] [address] Insurance Providers Payer Name Policy Number Subscriber Name Relationship Medicare [id number] Misa Lund 18 Self / Same As Patient [facility] [id number] Misa Lund 18 Self / Same As Patient Advance Directives Directive Response Recorded Date/Time Do you have an Advanced Directive? No 07/10/15 10:01pm Advance Directives No 11/16/16 3:46pm Living Will No 11/16/16 3:46pm Health Care Proxy No 02/22/17 11:46pm Power of [place] [employer] Pan Tank Operator for Health Care No 11/16/16 3:46pm Organ, [...] Oral Twice A Day 60 07/23/15 Acidophilus/Pectin, [place] 1 Each 1 Tab Oral Daily 07/23/15 Acetaminophen 500 Mg 1,000 Mg Oral Every 4 Hours As Needed 05/02/16 Amlodipine Besylate 5 Mg 5 Mg Oral Bedtime 30 09/22/16 Spironolactone 25 Mg 25 Mg Oral Every Three Days 09/22/16 Levothyroxine Sodium 200 Mcg 200 Mcg Oral Before Breakfast 30 09/22/16 Isosorbide Mononitrate 30 Mg 60 Mg Oral Bedtime 11/16/16 [Atrovent Estefania 0.0.6%] 2 [place] Nasal Twice A Day 11/16/16 Buspirone Hcl [...] Oral Every Other Day 09/22/16 Discontinued Ipratropium [place] 0.5 Mg/2.5 Ml Nebu, 0.5-2.5 Mg Inhalation Twice A Day Discontinued Topiramate 100 Mg Tablet, 100 Mg Oral Twice A Day 09/22/16 Discontinued Sucralfate 1 G Tablet, 1 Gm Oral Four Times Daily 09/22/16 Discontinued Phenol/Glycerin 30 Ml [place], 5 [place] Nasal As Needed 09/22/16 Discontinued Hydroxyzine Hcl [...] Days Functional Status Query Response Date Recorded [place] Coma Scale Total 15 February 23, 2017 [...] Discharge/Depart Date Attending Provider Departed Emergency Room [facility] 02/22/17 11:41pm 02/23/17 12:50am SHERIF SANCHEZ M.D. Registered Emergency Room [place] 02/22/17 12:03pm ALEXEY CYR MD Departed Emergency Room [place] 02/19/17 12:36am 02/19/17 2:50am LATASHA GONZALEZ D.O. Departed Emergency Room [place] 02/11/17 9:49pm 02/11/17 10:35pm LATASHA GONZALEZ D.O. Departed Emergency Room [place] 02/07/17 11:23pm 02/08/17 1:15am ORION BOSE MD Departed Emergency Room [place] 02/05/17 11:00pm 02/05/17 11:50pm HAILY EM DO Departed Emergency Room [place] 01/04/17 9:20pm 01/05/17 12:15am SHERIF SANCHEZ M.D. Registered Referred [place] 12/07/16 4:15pm JAY JAY WREN APRN Recent Diagnosis
--- OUTSIDE RECORDS SUMMARY | 2018-07-10 19:19 | XMS REPORT | Continuity of Care Document ---
Author Author [facility] Organization [facility] Address [facility] [address] [place] [address] Phone Unavailable Support Name Relationship Address Phone ESTEPHANIE MACHADO MD Caregiver [address] [place] [address] ESTEPHANIE MACHADO MD Caregiver [address] [place] [address] SHMUEL FRANCOIS Next Of Kin [address] [place], [place] [address] Insurance Providers Guarantor Misa Lund Address [address] [place] [address] Payer Medicare Policy Number [id number] Subscriber's Name Misa Lund Relationship 18 Self / Same As Patient Payer [facility] Policy Number [id number] Subscriber's Name Misa Lund Relationship 18 Self / Same As Patient Advance Directives Directive Response Recorded Date/Time Do you have an Advanced Directive? No 07/10/15 10:01pm Advance Directives No 11/16/16 3:46pm Living Will No 11/16/16 3:46pm Health Care Proxy No 05/26/17 5:55pm Power of [place] Operator for Health Care No 11/16/16 3:46pm Organ, Tissue, or Eye Donor No 09/22/16 10:40pm Do you have a signed organ donor card? No 12/08/15 9:31pm Problems Medical Problem Onset Date Status Acute [...] Mg ORAL Every 4 Hours As Needed Acetaminophen/Hydrocodone Bitart ([place] 7.5-325 Tab*) 1 Tab Tablet 1 Each ORAL Every 4 Hrs As Needed Pain as needed for Pain 15 Tablet Acidophilus/Pectin, [place] (Acidophilus-Pectin [place]) 1 Each Tablet 1 Tab ORAL Daily Albuterol (Proair 17GM Hfa Inhaler*) 1 Puff Inh 2 Puff Inhalation Every 4- 6 Hours As Needed for Shortness Of Breath 1 Inhaler INHALE 2 PUFFS Albuterol Sulfate (Ventolin Neb Premix 2.5 Mg/ 3 Ml*) 2.5 Mg/3 Ml Nebu 2.5 Mg Inhalation Every 4-6 Hours As Needed 30 Amp As needed for Wheezing/ Asthma 01/04/17 Albuterol Sulfate (Proair Respiclick) 90 Mcg Aer.pow.ba 2 Puff Inhalation Every 6 Hours As Needed as needed for Wheezing Amlodipine Besylate (Norvasc*) 5 Mg Tablet 5 Mg ORAL Bedtime 30 Tablet Aripiprazole (Abilify*) 10 Mg Tablet 10 Mg ORAL Bedtime 30 Tablet Atrovent Estefania 0.0.6% 2 [place] NASAL Twice A Day Buspirone Hcl (Buspar) 10 Mg Tab 15 Mg ORAL Three Times A Day Carbamazepine (Tegretol 200 Mg Tab*) 200 Mg Tablet 200 Mg ORAL Twice A Day 60 Tablet Carvedilol (Coreg 6.25 Mg Tab*) 6.25 Mg Tablet 6.25 Mg ORAL Twice A Day 60 Tablet Cyclobenzaprine Hcl (Cyclobenzaprine Hcl*) 10 Mg Tablet 10 Mg ORAL Twice A Day 15 Tablet 03/04/17 Diazepam (Valium 5 Mg Tab*) 5 Mg Tablet 5 Mg ORAL Twice A Day 15 Tablet 03/11/17 Duloxetine Hcl (Cymbalta*) 30 Mg Capsule.dr 30 Mg ORAL Bedtime 30 Cap Duloxetine Hcl (Cymbalta*) 60 Mg Capsule.dr 60 Mg ORAL Daily Am 30 Cap Gabapentin (Neurontin 300 Mg Cap*) 300 Mg Capsule 600 Mg ORAL Three Times A Day 90 Cap Guaifenesin/Dextromethorphan (Robitussin Dm Max Liquid*) 118 Ml Liquid 5-10 Ml ORAL Every 4 Hours as needed for Cough Hydroxyzine Hcl (Atarax 50 Mg Tab*) 50 Mg Tablet 50 Mg ORAL Daily as needed for Itching 60 Tablet Isosorbide Mononitrate (Imdur-Er 30 Mg*) 30 Mg Tabcr 60 Mg ORAL Bedtime Levothyroxine Sodium (Synthroid 200 Mcg Tab*) 200 Mcg Tablet 200 Mcg ORAL Before Breakfast 30 Tablet Loperamide Hcl 1 Mg/5 Ml Liquid 1 Mg ORAL Every 6 To 8 Hours As Needed as needed for Diarrhea Lorazepam (Ativan 0.5 Mg Tab*) 0.5 Mg Tablet 0.5 Mg ORAL Twice A Day as needed for Anxiety 60 Milligram Magnesium Hydroxide (Milk Of Magnesia 400MG/5ML*) 400 Mg/5 Ml Oral.susp 30 Ml ORAL Daily as needed for Constipation Methylprednisolone (Medrol Dose Pack 4 Mg*) 4 Mg Dspk 4 Mg ORAL As Directed 21 Packet 02/22/17 Naphazoline Hcl/Pheniramine (Allergy Eye Drops) 15 Ml Drops 2 Drop OPHTHALMIC Four Times Daily as needed for Allergy Symptoms Nitroglycerin (Nitrostat) 0.3 Mg Tab.subl 1 Tab SUBLINGUAL Once as needed for Chest Pain Omeprazole Magnesium 20 Mg Capsule.dr 20 Mg ORAL Twice A Day Orphenadrine Citrate (Norflex) 100 Mg Tablet.sa 100 Mg ORAL Twice A Day 30 Tablet 03/06/17 Oxycodone Hcl/Acetaminophen (Percocet 7.5-325 Mg Tablet) 1 Tab Tablet 1 Tab ORAL Every 4-6 Hrs As Needed Pain 30 Tablet 02/22/17 Prednisone (Prednisone 20 Mg Tab*) 20 Mg Tablet 40 Mg ORAL Daily 10 Tablet 01/04/17 Prednisone (Prednisone 20 Mg Tab*) 20 Mg Tablet 60 Mg ORAL Daily 15 Tablet 02/05/17 Promethazine Hcl (Phenergan*) 25 Mg Tablet 25 Mg TOPICAL Every 4-6 Hours as needed for Nausea/Vomiting Spironolactone (Aldactone*) 25 Mg Tablet 25 Mg ORAL Every Three Days Topiramate (Topamax 100 Mg Tab*) 100 Mg Tablet 100 Mg ORAL Twice A Day 30 Tablet Tramadol Hcl (Ultram 50 Mg Tab*) 50 Mg Tablet 50 Mg ORAL Every 4-6 Hours as needed for Pain 15 Tablet Trazodone Hcl (Desyrel*) 100 Mg Tablet 25 Mg ORAL Daily Vancomycin Hcl 100 Gm [place] 200 Mg Inhalation Twice A Day Warfarin Sodium (Coumadin 7.5 Mg Tab*) 7.5 Mg Tablet 7.5 Mg ORAL Twice A Week 30 Tablet Warfarin Sodium (Coumadin 7.5 Mg Tab*) 7.5 Mg Tablet 15 Mg ORAL Daily 30 Tablet Past Home Medications Medication Directions Ordered Status Acetaminophen/Hydrocodone Bitart ([place] 7.5-325 Tab*) 1 Tab Tablet, 1 Each Oral Every 6 Hrs As Needed For Pain as needed for Pain 10/22/16 Discontinued Acetaminophen/Hydrocodone Bitart ([place] 7.5-325 Tab*) 1 Tab Tablet, 1 Each Oral Every 4 Hrs As Needed Pain for Pain Discontinued Al Hydrox/Mg Hydrox/Simethicone (Maalox Suspension*) 148 Ml Oral.susp, 30 Ml Oral As Needed as needed for Indigestion Discontinued Albuterol (Proair 17GM Hfa Inhaler*) 1 Puff Inh, 2 Puff Inhalation Every 6 Hours As Needed as needed for Wheezing 09/24/16 Discontinued Albuterol Sulfate (Ventolin Concentrate 2.5 Mg/ [...] Mg Tablet, 10 Mg Oral Daily Discontinued Biotin 2,500 Mcg Capsule, 5000 Mcg Oral Twice A Day Discontinued Buspirone Hcl (Buspar) 10 Mg Tab, 15 Mg Oral Three Times A Day Discontinued Buspirone Hcl (Buspar) 10 Mg Tab, 15 Mg Oral Three Times A Day Discontinued Calcium Carbonate (Tums 500*) 500 ( Tab.chew, 500 Mg Oral Three Times Daily With Meals Discontinued Carbamazepine (Carbamazepine*) 100 Mg Cpmp.12hr, 200 [...] Mg Oral Twice A Day 05/02/16 Discontinued Duloxetine Hcl (Cymbalta*) 30 Mg Capsule.dr, [...] 50 Mg Oral As Needed Discontinued Ipratropium [place] (Atrovent*) 0.5 Mg/2.5 Ml Nebu, 0.5-2.5 Mg [...] Times Daily Prn Pain Discontinued Loperamide Hcl (Imodium*) 2 Mg Capsule, [...] 7.5 Mg Oral Twice A Day Discontinued Mupirocin (Bactroban 2% Oint*) 22 Gm Oint, 22 Gm Extracorporeal Daily Discontinued Nitroglycerin (Nitrostat*) 0.4 Mg Tab.subl, [...] (Omeprazole-Bicarb 20-1,680 Pkt) 1 Each Packet, Discontinued Phenol/Glycerin (Chloraseptic Max [place]) 30 Ml [place], 5 [place] Nasal As Needed Discontinued Potassium Chloride (K-Dur 10 Meq*) 10 Meq Tab.prt.sr, 10 Meq Oral Daily Discontinued Potassium Chloride (Micro-K 10 Extencaps*) 10 Meq Tab, 10 Meq Oral Daily Discontinued Potassium Chloride (Micro-K 10 Extencaps*) 10 Meq Tab, 10 Meq Oral Daily Discontinued Prazosin Hcl (Minipress*) 2 Mg Capsule, 1 Mg Oral Bedtime Discontinued Prednisone (Prednisone 50 Mg Tab) 50 Mg Tablet, 50 Mg Oral Daily Discontinued Prednisone (Prednisone 10 Mg Tab*) 10 Mg Tablet, 50 Mg Oral Daily 06/21/15 Discontinued Robitussin Dm , 10 Ml Oral [...] Status Smoking Status Current every day smoker 11/20/2016 7:33am Not Applicable Not Applicable Tobacco Use Cigarettes 05/02/2016 3:40pm Not Applicable Not Applicable Smoking Status Start Date Stop Date Current every day smoker Hospital Discharge Instructions Current inpatient/outpatient. Discharge instructions are currently unavailable. Plan of Care Current inpatient/outpatient. The plan of care is currently unavailable. Functional Status No functional status information available. Allergies, Adverse Reactions, Alerts Allergen Type Severity [...] Date/Time Hx Diphtheria, Pertussis, Tetanus Vaccination Unknown 03/11/17 8:10pm Hx Influenza Vaccination No 03/11/17 8:10pm Hx Pneumococcal Vaccination Yes 03/11/17 8:10pm Hx Tetanus, Diphtheria Vaccination Yes 09/22/16 8:27pm [...] - 100) 03/11/2017 9:10pm Oxygen Delivery Method Room Air 03/11/2017 9:10pm Oxygen Flow Rate 2 L/min 03/10/2017 7:34pm Pain Intensity 4 03/22/2017 10:45am Pain Location Body Site Modifier Lower 03/11/2017 8:40pm Pain Description Aching 03/11/2017 8:40pm Results Laboratory Results Test Name Result Units Flags Reference Collection Date/Time Result Date/ Time Comments White Blood Count 10.3 K/uL 4.8-10.8 03/06/2017 7:13pm 03/06/2017 7: 16pm Red Blood Count 4.38 M/uL 4.20-5.40 03/06/2017 7:13pm 03/06/2017 7: 16pm Hemoglobin 11.3 gm/dL L 12.0-16.0 03/06/2017 7:13pm 03/06/2017 7:16pm Hematocrit 37.5 % 37.0-47.0 03/06/2017 7:13pm 03/06/2017 7:16pm Mean Corpuscular Volume 85.6 fL 81.0-99.0 03/06/2017 7:03/06/2017 7:16pm Mean Corpuscular Hemoglobin 25.7 pg L 27.0-31.0 03/06/2017 7:2016 7:16pm Mean Corpuscular Hemoglobin Concent 30.2 g/dL 30.0-37.0 03/06/2017 7: 03/06/2017 7:16pm Red Cell Distribution Width 16.9 % H 11.5-14.5 03/06/2017 7:2016 7:16pm Platelet Count 306 K/uL 130-400 03/06/2017 7:03/06/2017 7:16pm Mean Platelet Volume 9.8 fL 7.4-10.4 03/06/2017 7:03/06/2017 7: 16pm Neutrophils (%) (Auto) 71.9 % 42.2-75.2 03/06/2017 7:03/06/2017 7: 16pm Lymphocytes (%) (Auto) 21.0 % 20.5-51.1 03/06/2017 7:03/06/2017 7: 16pm Monocytes (%) (Auto) 4.2 % 1.7-9.3 03/06/2017 7:03/06/2017 7:16pm Eosinophils (%) (Auto) 2.3 % 0-3 03/06/2017 7:03/06/2017 7:16pm Basophils (%) (Auto) 0.6 % 0.0-1.0 03/06/2017 7:03/06/2017 7:16pm Neutrophils # (Auto) 7.4 K/uL H 2.0-6.9 03/06/2017 7:03/06/2017 7: 16pm Lymphocytes # (Auto) 2.2 K/uL 1.2-3.4 03/06/2017 7:03/06/2017 7: 16pm Monocytes # (Auto) 0.4 K/uL 0.1-0.6 03/06/2017 7:03/06/2017 7: 16pm Eosinophils # (Auto) 0.2 K/uL 0.0-0.7 03/06/2017 7:13pm 03/06/2017 7: 16pm Basophils # (Auto) 0.1 K/uL 0.0-0.2 03/06/2017 7:13pm 03/06/2017 7: 16pm Random Glucose 112 mg/dL H 70-110 04/10/2017 12:06pm 04/10/2017 4:30pm Blood Urea Nitrogen 17 mg/dL 7-18 04/10/2017 12:06pm 04/10/2017 4:30pm Creatinine 0.9 mg/dL 0.55-1.02 04/10/2017 12:06pm 04/10/2017 4:30pm Sodium Level 143 mEq/L 136-145 04/10/2017 12:06pm 04/10/2017 4:30pm Potassium Level 3.7 mEq/L 3.5-5.0 04/10/2017 12:06pm 04/10/2017 4:30pm Chloride Level 107 mEq/L 98-107 04/10/2017 12:06pm 04/10/2017 4:30pm Carbon Dioxide Level 25.2 mEq/L 21-32 04/10/2017 12:06pm 04/10/2017 4: 30pm Calcium Level 9.0 mg/dL 8.8-10.5 04/10/2017 12:06pm 04/10/2017 4:30pm Cholesterol Level 211 mg/dL H 120-200 04/10/2017 12:06pm 04/10/2017 4: 30pm Triglycerides Level 279 mg/dL H 30-200 04/10/2017 12:06pm 04/10/2017 4: 30pm HDL Cholesterol 29 mg/dL L 35-60 04/10/2017 12:06pm 04/10/2017 4:30pm LDL Cholesterol 126 mg/dL 0-130 04/10/2017 12:06pm 04/10/2017 4:30pm Total Protein 7.9 gm/dL 6.4-8.2 04/10/2017 12:06pm 04/10/2017 4:30pm Albumin 3.1 gm/dL L 3.4-5.0 04/10/2017 12:06pm 04/10/2017 4:30pm Total Bilirubin 0.22 mg/dL 0.00-1.00 04/10/2017 12:06pm 04/10/2017 4: 30pm Direct Bilirubin < 0.05 mg/dL 0.00-0.30 04/10/2017 12:06pm 04/10/2017 4 :30pm Indirect Bilirubin 0.17 mg/dL 0-0.70 04/10/2017 12:06pm 04/10/2017 4: 30pm Aspartate Amino Transf (AST/SGOT) 14 U/L L 15-37 04/10/2017 12:06pm 4:30pm Alanine Aminotransferase (ALT/SGPT) 22 U/L 12-78 04/10/2017 12:06pm 4:30pm Total Alkaline Phosphatase 183 U/L H 46-116 04/10/2017 12:06pm 2016 4:30pm Free Thyroxine (T4) Calculated 0.87 ng/dL 0.76-1.46 04/10/2017 12:06pm 04/10/2017 4:31pm Thyroid Stimulating Hormone (TSH) 16.48 uIU/ml H 0.36-3.74 04/10/2017 12: 06pm 04/10/2017 4:30pm Glomerular Filtration Rate Calc 67.9 mL/min 04/10/2017 12:06pm 2016 4:30pm Urine Color ORANGE H YELLOW 04/18/2017 7:20pm 04/18/2017 10:50pm Urine Appearance TURBID H CLEAR 04/18/2017 7:pm 04/18/2017 10:50pm Urine Glucose (UA) NEGATIVE mg/dL NEGATIVE 04/18/2017 7:2016 10:50pm Urine Bilirubin NEGATIVE NEGATIVE 04/18/2017 7:04/18/2017 10: 50pm Urine Ketones NEGATIVE mg/dL NEGATIVE 04/18/2017 7:04/18/2017 10: 50pm Urine Specific [place] >=1.030 H 1.010-1.025 04/18/2017 7:pm 2016 10:50pm Urine Occult Blood NEGATIVE NEGATIVE 04/18/2017 7:04/18/2017 10: 50pm Urine pH 5.5 5.0-8.0 04/18/2017 7:20pm 04/18/2017 10:50pm Urine Protein NEGATIVE mg/dL NEGATIVE 04/18/2017 7:04/18/2017 10: 50pm Urine Urobilinogen 0.2 mg/dL E.U./dL 0.2-1.0 04/18/2017 7:20pm 2016 10:50pm Urine Nitrate NEGATIVE NEGATIVE 04/18/2017 7:20pm 04/18/2017 10:50pm Urine Leukocyte Esterase NEGATIVE NEGATIVE 04/18/2017 7:20pm 2016 10:50pm Urine RBC NEGATIVE /hpf 0 04/18/2017 7:20pm 04/18/2017 10:55pm Urine WBC NEGATIVE /hpf 0-4 04/18/2017 7:20pm 04/18/2017 10:55pm Urine Squamous Epithelial Cells 0-1 /hpf 0-1 04/18/2017 7:20pm 2016 10:55pm Urine Bacteria 1+ H NEGATIVE 04/18/2017 7:20pm 04/18/2017 10:55pm Urine Amorphous Sediment 3+ H NEGATIVE 04/18/2017 7:20pm 04/18/2017 10 :55pm Prothrombin Time 13.7 SECONDS H 9.10-11.20 05/26/2017 6:26pm 05/26/2017 8:03pm Prothromb Time International Ratio 1.34 H 0.9-1.1 05/26/2017 6:26pm 8:03pm PLEASE NOTE REFERENCE RANGE Procedures Procedure Status Date Provider(s) ROUTINE VENIPUNCTURE Completed 03/06/17 CHEST X-RAY 1 VIEW FRONTAL Completed 03/06/17 COMPREHEN METABOLIC PANEL Completed 03/06/17 COMPLETE CBC AUTOMATED Completed 03/06/17 THERPROPHDIAG INJ SCIM Completed 03/06/17 EMERGENCY DEPT VISIT Completed 03/06/17 GROUND MILEAGE Completed 03/06/17 BLS-EMERGENCY Completed 03/06/17 ORPHENADRINE INJECTION Completed 03/06/17 THERPROPHDIAG INJ SCIM Completed 03/10/17 GROUND MILEAGE Completed 03/10/17 BLS-EMERGENCY Completed 03/10/17 ORPHENADRINE INJECTION Completed 03/10/17 THERPROPHDIAG INJ SCIM Completed 03/11/17 EMERGENCY DEPT VISIT Completed 03/11/17 GROUND MILEAGE Completed 03/11/17 BLS-EMERGENCY Completed 03/11/17 ORPHENADRINE INJECTION Completed 03/11/17 METABOLIC PANEL TOTAL CA Completed 04/10/17 LIPID PANEL Completed 04/10/17 HEPATIC FUNCTION PANEL Completed 04/10/17 ASSAY OF FREE THYROXINE Completed 04/10/17 ASSAY THYROID STIM HORMONE Completed 04/10/17 URINALYSIS AUTO WSCOPE Completed 04/18/17 PROTHROMBIN TIME Completed 04/25/17 PROTHROMBIN TIME Completed 05/26/17 Portable x-ray of chest Completed 03/06/17 LATASHA GONZALEZ D.O. Encounters Encounter Location Arrival/Admit Date Discharge/Depart Date Attending Provider Registered Referred [place] 05/26/17 6:01pm ESTEPHANIE MACHADO MD Registered Referred [place] 04/25/17 10:30pm ESTEPHANIE MACHADO MD Registered Referred [place] 04/18/17 10:26pm ESTEPHANIE MACHADO MD Registered Referred [place] 04/10/17 1:16pm ESTEPHANIE MACHADO MD Discharged Recurring [place] 03/22/17 10:25am 04/15/17 3:45pm ESTEPHANIE MACHADO MD Departed Emergency Room [place] 03/11/17 8:11pm 03/11/17 9:15pm LATASHA GONZALEZ D.O. Departed Emergency Room [place] 03/10/17 5:44pm 03/10/17 7:45pm BEATRICE TOUSSAINT MD Departed Emergency Room [place] 03/06/17 6:36pm 03/06/17 8:45pm LATASHA GONZALEZ D.O.
--- NOTE | 2018-07-10 19:20 | Diagnostic Imaging Report ---
INDICATION: Fell, lower back pain. COMPARISON STUDY: CT of the pelvis from May 30. FINDINGS: An AP view of the pelvis demonstrates some degenerative changes of the lower lumbar spine. No fracture or diastasis is present. IMPRESSION: There are no acute findings. Dictated by: Dictated on workstation # [id number]
--- OUTSIDE RECORDS SUMMARY | 2018-07-10 19:20 | XMS REPORT | Continuity of Care Document ---
Author Author [facility] Organization [facility] Address [facility] [address] [place] [address] Phone Unavailable Support Name Relationship Address Phone JAY JAY WREN CONSTRUCTION SKILLS TEACHER Caregiver [address] [place], [place] [address] CARMELINA CHRISTINE DO Caregiver [address] [place] [address] Unavailable SHMUEL FRANCOIS Next Of Kin [address] [place], [place] [address] Insurance Providers Guarantor Misa Lund Address [address] [place] [address] Payer Medicare Policy Number [id number] Subscriber's Name Misa Lund Relationship 18 Self / Same As Patient Payer [facility] Policy Number [id number] Subscriber's Name Misa Lund Relationship 18 Self / Same As Patient Advance Directives Directive Response Recorded Date/Time Do you have an Advanced Directive? No 07/10/15 10:01pm Advance Directives No 06/30/17 4:22am Living Will No 06/30/17 4:22am Health Care Proxy No 12/01/17 8:08pm Power of Shaving Machine Operator for Health Care No 06/30/17 4:22am Organ, Tissue, or Eye Donor No 06/30/17 4:22am Do you have a signed organ donor card? No 12/08/15 9:31pm Chief Complaint and Reason for Visit Chief Complaint COUGH Reason for Visit [id number] Problems Medical Problem Onset Date Status Acute [...] Medications Medication Directions Ordered Status Acetaminophen/Hydrocodone Bitart (Zanoni 7.5-325 Tab*) 1 Tab Tablet, 1 Each Oral Every 4 Hrs As Needed Pain as needed for Pain Discontinued Acetaminophen/Hydrocodone Bitart (Zanoni 7.5-325 Tab*) 1 Tab Tablet, 1 Each Oral Every 6 Hrs As Needed For Pain as needed for Pain 10/22/16 Discontinued Acetaminophen/Hydrocodone Bitart (Zanoni 7.5-325 Tab*) 1 Tab Tablet, 1 Each Oral Every 4 Hrs As Needed Pain for Pain Discontinued Acidophilus/Pectin, [place] (Acidophilus-Pectin [place]) 1 Each Tablet, 1 Tab [...] Daily Discontinued Atrovent Estefania 0.0.6% , 2 [place] Nasal Twice A Day Discontinued Azithromycin (Z-Pasha*) [...] Mg Oral Daily As Needed Discontinued Ipratropium [place] (Atrovent*) 0.5 Mg/2.5 Ml Nebu, 0.5-2.5 Mg [...] Pain 02/22/17 Discontinued Phenol (Chloraseptic*) 177 Ml [place].pump, 1 [place] Oral Every 2 Hours As Needed Discontinued Phenol (Chloraseptic) 20 Ml [place], 20 Ml Oropharyngeal as needed for Throat Pain Discontinued Phenol/Glycerin (Chloraseptic Max [place]) 30 Ml [place], 5 [place] Nasal As Needed Discontinued Potassium Chloride (K-Dur [...] Not Applicable Not Applicable Alcohol Use none 12/01/2017 9:01pm Not Applicable Not Applicable Drug Use none 12/01/2017 9:01pm Not Applicable Not Applicable Smoking Status Start Date Stop Date Current every day smoker Hospital Discharge Instructions No hospital discharge instruction information available. Plan of Care Discharge Date 12/01/17 9:25pm Condition at Discharge Stable Instructions/Education Provided COPD (Chronic Obstructive Pulmonary Disease) ( ED) Prescriptions See Medication Section Referrals JAY JAY WREN APRN Address: [address] [place] [address] Functional Status Query Response Date Recorded [place] Coma Scale Total 15 December 01, 2017 9:31pm Patient Behavior Cooperative Appropriate December 01, 2017 8:05pm Allergies, Adverse Reactions, Alerts Allergen Type Severity [...] Date/Time Hx Diphtheria, Pertussis, Tetanus Vaccination Unknown 12/01/17 8:05pm Hx Influenza Vaccination No 12/01/17 8:05pm Hx Pneumococcal Vaccination Yes 12/01/17 8:05pm Hx Tetanus, Diphtheria Vaccination No 10/26/17 9:15pm Hx Tetanus Toxoid Vaccination Yes 09/22/16 8:27pm Vital Signs Acute Vital Signs Vital Response Date/Time Temperature (Fahrenheit) 98.1 degrees F (97.6 - 99.5) 12/01/2017 9:20pm Temperature Source Temporal Artery 12/01/2017 9:20pm Pulse Rate (adult) 76 bpm (60 - 90) 12/01/2017 10:01pm Respiratory Rate 22 bpm (12 - 24) 12/01/2017 10:01pm Blood Pressure 132/85 mm Hg 12/01/2017 10:01pm O2 Sat by Pulse Oximetry 96 % (90 - 100) 12/01/2017 9:20pm Oxygen Delivery Method Room Air 12/01/2017 9:20pm Pain Intensity 0 12/01/2017 10:01pm Pain Location Body Site Modifier Left 10/26/2017 10:24pm Pain Description Aching 10/26/2017 10:24pm Height 5 ft 5 in 12/01/2017 8:05pm Weight 268.96 lb 12/01/2017 8:05pm Body Mass Index 44.0 kg/m^2 12/01/2017 8:05pm Results Laboratory Results Test Name Result Units Flags Reference Collection Date/Time Result Date/ Time Comments Vancomycin Level Trough 12.4 mcg/mL 5.0-15.0 10/14/2017 11:00am 2017 1:00pm Prothrombin Time 11.1 SECONDS 9.10-11.20 10/26/2017 9:48pm 10/26/2017 10:13pm Prothromb Time International Ratio 1.08 0.9-1.1 10/26/2017 9:48pm 10/2017 10:13pm PLEASE NOTE REFERENCE RANGE Glomerular Filtration Rate Calc 85.1 mL/min 10/26/2017 9:48pm 2017 10:13pm White Blood Count 12.1 K/uL H 4.8-10.8 12/01/2017 8:30pm 12/01/2017 8: 38pm Red Blood Count 4.60 M/uL 4.20-5.40 12/01/2017 8:30pm 12/01/2017 8: 38pm Hemoglobin 12.1 gm/dL 12.0-16.0 12/01/2017 8:30pm 12/01/2017 8:38pm Hematocrit 39.7 % 37.0-47.0 12/01/2017 8:30pm 12/01/2017 8:38pm Mean Corpuscular Volume 86.3 fL 81.0-99.0 12/01/2017 8:30pm 12/01/2017 8:38pm Mean Corpuscular Hemoglobin 26.3 pg L 27.0-31.0 12/01/2017 8:30pm 2017 8:38pm Mean Corpuscular Hemoglobin Concent 30.5 g/dL 30.0-37.0 12/01/2017 8: 30pm 12/01/2017 8:38pm Red Cell Distribution Width 16.5 % H 11.5-14.5 12/01/2017 8:30pm 2017 8:38pm Platelet Count 268 K/uL 130-400 12/01/2017 8:30pm 12/01/2017 8:38pm Mean Platelet Volume 7.9 fL 7.4-10.4 12/01/2017 8:30pm 12/01/2017 8: 38pm Neutrophils (%) (Auto) 68.9 % 42.2-75.2 12/01/2017 8:30pm 12/01/2017 8: 38pm Lymphocytes (%) (Auto) 24.1 % 20.5-51.1 12/01/2017 8:30pm 12/01/2017 8: 38pm Monocytes (%) (Auto) 4.7 % 0-10 12/01/2017 8:30pm 12/01/2017 8:38pm Eosinophils (%) (Auto) 1.5 % 0-3 12/01/2017 8:30pm 12/01/2017 8:38pm Basophils (%) (Auto) 0.9 % 0.0-1.0 12/01/2017 8:30pm 12/01/2017 8:38pm Neutrophils # (Auto) 8.3 K/uL H 2.0-6.9 12/01/2017 8:30pm 12/01/2017 8: 38pm Lymphocytes # (Auto) 2.9 K/uL 1.2-3.4 12/01/2017 8:30pm 12/01/2017 8: 38pm Monocytes # (Auto) 0.6 K/uL 0.1-0.6 12/01/2017 8:30pm 12/01/2017 8: 38pm Eosinophils # (Auto) 0.2 K/uL 0.0-0.7 12/01/2017 8:30pm 12/01/2017 8: 38pm Basophils # (Auto) 0.1 K/uL 0.0-0.2 12/01/2017 8:30pm 12/01/2017 8: 38pm Random Glucose 82 mg/dL 70-110 12/01/2017 8:30pm 12/01/2017 9:02pm Blood Urea Nitrogen 11 mg/dL 7-18 12/01/2017 8:30pm 12/01/2017 9:02pm Creatinine 0.7 mg/dL 0.55-1.02 12/01/2017 8:30pm 12/01/2017 9:02pm Glomerular Filtration Rate Calc 85.1 mL/min 12/01/2017 8:30pm 2017 9:02pm Sodium Level 142 mEq/L 136-145 12/01/2017 8:30pm 12/01/2017 9:02pm Potassium Level 3.6 mEq/L 3.5-5.0 12/01/2017 8:30pm 12/01/2017 9:02pm Chloride Level 107 mEq/L 98-107 12/01/2017 8:30pm 12/01/2017 9:02pm Carbon Dioxide Level 26.7 mEq/L 21-32 12/01/2017 8:30pm 12/01/2017 9: 02pm Calcium Level 8.4 mg/dL L 8.8-10.5 12/01/2017 8:30pm 12/01/2017 9:02pm Total Protein 7.3 gm/dL 6.4-8.2 12/01/2017 8:30pm 12/01/2017 9:05pm Albumin 2.6 gm/dL L 3.4-5.0 12/01/2017 8:30pm 12/01/2017 9:05pm Total Bilirubin 0.21 mg/dL 0.00-1.00 12/01/2017 8:30pm 12/01/2017 9: 05pm Aspartate Amino Transf (AST/SGOT) 5 U/L L 15-37 12/01/2017 8:30pm 2017 9:05pm Alanine Aminotransferase (ALT/SGPT) 14 U/L 12-78 12/01/2017 8:30pm 03/2018 9:05pm Total Alkaline Phosphatase 138 U/L H 46-116 12/01/2017 8:30pm 2017 9:05pm Total Creatine Kinase 37 U/L 26-192 12/01/2017 [...] absence of renal failure. Creatine Kinase MB 0.9 ng/mL 0-3.6 12/01/2017 8:30pm 12/01/2017 9:05pm Myoglobin 30.0 NG/ML 10.5-92.5 12/01/2017 8:30pm 12/01/2017 9:05pm Troponin I < 0.02 ng/mL 0.0-0.2 12/01/2017 8:30pm 12/01/2017 9:05pm Procedures Procedure Status Date Provider(s) ASSAY OF [...] Completed 10/26/17 FENTANYL CITRATE INJECITON Completed 10/26/17 Portable x-ray of chest Completed 10/26/17 HAILY EM DO Portable x-ray of chest Completed 12/01/17 CARMELINA CHRISTINE DO Encounters Encounter Location Arrival/Admit Date Discharge/Depart Date Attending Provider Departed Emergency Room [place] 12/01/17 8:05pm 12/01/17 9:25pm CARMELINA CHRISTINE DO Departed Emergency Room [place] 10/26/17 9:15pm 10/26/17 11:48pm HAILY EM DO Registered Referred [place] 10/14/17 12:02pm ESTEPHANIE MACHADO MD Registered Clinic [place] 10/12/17 11:32am ESTEPHANIE MACHADO MD Registered Referred [place] 10/10/17 12:40pm ESTEPHANIE MACHADO MD Recent Diagnosis
--- OUTSIDE RECORDS SUMMARY | 2018-07-10 19:21 | XMS REPORT | Continuity of Care Document ---
Author Author [facility] Organization [facility] Address [facility] [address] [place] [address] Phone Unavailable Support Name Relationship Address Phone ESTEPHANIE MACHADO MD Caregiver [address] [place] [address] CARMELINA CHRISTINE DO Caregiver [address] [place] [address] Unavailable SHMUEL FRANCOIS Next Of Kin [address] [place] [address] Insurance Providers Payer Name Policy Number Subscriber Name Relationship Medicare [id number] Misa Lund 18 Self / Same As Patient [facility] [id number] Misa Lund 18 Self / Same As Patient Advance Directives Directive Response Recorded Date/Time Do you have an Advanced Directive? No 07/10/15 10:01pm Advance Directives No 11/16/16 3:46pm Living Will No 11/16/16 3:46pm Health Care Proxy No 02/28/17 10:16pm Power of Market Analysis Director for Health Care No 11/16/16 3:46pm Organ, Tissue, or Eye Donor No 09/22/16 10:40pm Do you have a signed organ donor card? No 12/08/15 9:31pm Chief Complaint and Reason for Visit Chief Complaint KNEE PAIN Reason for Visit [id number] Problems Active Problems Medical Problem Onset Date [...] Oral Twice A Day 60 07/23/15 Acidophilus/Pectin, Frank 1 Each 1 Tab Oral Daily 07/23/15 Acetaminophen 500 Mg 1,000 Mg Oral Every 4 Hours As Needed 05/02/16 Amlodipine Besylate 5 Mg 5 Mg Oral Bedtime 30 09/22/16 Spironolactone 25 Mg 25 Mg Oral Every Three Days 09/22/16 Levothyroxine Sodium 200 Mcg 200 Mcg Oral Before Breakfast 30 09/22/16 Isosorbide Mononitrate 30 Mg 60 Mg Oral Bedtime 11/16/16 [Atrovent Estefania 0.0.6%] 2 [place] Nasal Twice A Day 11/16/16 Buspirone Hcl [...] Oral Every Other Day 09/22/16 Discontinued Ipratropium [place] 0.5 Mg/2.5 Ml Nebu, 0.5-2.5 Mg Inhalation Twice A Day Discontinued Topiramate 100 Mg Tablet, 100 Mg Oral Twice A Day 09/22/16 Discontinued Sucralfate 1 G Tablet, 1 Gm Oral Four Times Daily 09/22/16 Discontinued Phenol/Glycerin 30 Ml [place], 5 [place] Nasal As Needed 09/22/16 Discontinued Hydroxyzine Hcl [...] Use Cigarettes 05/02/2016 3:40pm Alcohol Use none 02/28/2017 10:40pm Drug Use none 02/28/2017 10:40pm Query Response Start Date Stop Date Smoking Status Current every day smoker Hospital Discharge Instructions No hospital discharge instructions. Plan of Care Discharge Date 02/28/17 10:40pm Condition at Discharge Stable Instructions/Education Provided Chronic Pain (ED) Prescriptions See Medication Section Referrals ESTEPHANIE MACHADO MD - Additional Instructions/Education Please follow up with Dr. Graves as scheduled Functional Status Query Response Date Recorded [place] Coma Scale Total 15 February 28, 2017 10:10pm Patient Behavior Appropriate February 28, 2017 10:10pm Allergies, Adverse Reactions, Alerts Allergen Type Severity [...] (Fahrenheit) 98.2 degrees F (97.6 - 99.5) 02/28/2017 10:10pm Temperature Source Temporal Artery 02/28/2017 10:10pm Pulse Rate (adult) 79 bpm (60 - 90) 02/28/2017 10:10pm Respiratory Rate 23 bpm (12 - 24) 02/28/2017 10:10pm Blood Pressure 171/75 mm Hg 02/28/2017 10:10pm O2 Sat by Pulse Oximetry 93 % (90 - 100) 02/28/2017 10:10pm Oxygen Delivery Method 02/28/2017 10:10pm Oxygen Flow Rate 2 L/min 02/19/2017 12:40am Pain Intensity 8 02/22/2017 11:28pm Pain Location Body Site Modifier 02/28/2017 10:43pm Pain Description 02/23/2017 12:10am Pain Duration 15-30 [...] GROUND MILEAGE Completed 02/22/17 [id number]-EMERGENCY Completed 02/22/17 Portable x-ray of chest Completed 01/04/17 SHERIF SANCHEZ M.D. Portable x-ray of chest Completed 02/07/17 ORION BOSE MD Portable x-ray of chest Completed 02/19/17 LATASHA GONZALEZ D.O. X-ray of chest, PA and lateral views Completed 02/23/17 SHERIF SANCHEZ M.D. Encounters Encounter Location Arrival/Admit Date Discharge/Depart Date Attending Provider Departed Emergency Room [place] 02/28/17 10:12pm 02/28/17 10:40pm CARMELINA CHRISTINE DO [facility] 02/28/17 8:45am TRI[facility], EMS Departed Emergency Room [place] 02/22/17 11:41pm 02/23/17 12:50am HSERIF SANCHEZ M.D. Departed Emergency Room [place] 02/22/17 12:03pm 02/22/17 2:45pm ALEXEY CYR MD Departed Emergency Room [place] 02/19/17 12:36am 02/19/17 2:50am LATASHA GONZALEZ D.O. Departed Emergency Room [place] 02/11/17 9:49pm 02/11/17 10:35pm LATASHA GONZALEZ D.O. Departed Emergency Room [place] 02/07/17 11:23pm 02/08/17 1:15am ORION BOSE MD Departed Emergency Room [place] 02/05/17 11:00pm 02/05/17 11:50pm HAILY EM DO Departed Emergency Room [place] 01/04/17 9:20pm 01/05/17 12:15am SHERIF SANCHEZ M.D. Registered Referred [place] 12/07/16 4:15pm JAY JAY WREN APRN Recent Diagnosis
--- OUTSIDE RECORDS SUMMARY | 2018-07-10 19:22 | XMS REPORT | Continuity of Care Document ---
Author Author [facility] Address [facility] [address] [place] [address] Phone Unavailable Support Name Relationship Address Phone ESTEPHANIE MACHADO MD Caregiver [address] [place] [address] SHERIF SANCHEZ M.D. Caregiver [address] [place] [address] SHMUEL FRANCOIS Next Of Kin [address] [place] [address] Insurance Providers Payer Name Policy Number Subscriber Name Relationship Medicare [id number] Misa Lund 18 Self / Same As Patient [facility] [id number] Misa Lund 18 Self / Same As Patient Advance Directives Directive Response Recorded Date/Time Do you have an Advanced Directive? No 07/10/15 10:01pm Advance Directives No 11/16/16 3:46pm Living Will No 11/16/16 3:46pm Health Care Proxy No 01/04/17 9:27pm Power of Slab Puller for Health Care No 11/16/16 3:46pm Organ, Tissue, or Eye Donor No 09/22/16 10:40pm Do you have a signed organ donor card? No 12/08/15 9:31pm Chief Complaint and Reason for Visit Chief Complaint DYSPNEA/RESP DISTRESS Reason for Visit [id number] Problems Active Problems Medical Problem Onset Date [...] Mg 60 Mg Oral Daily Am 30 11/28/15 Carbamazepine 200 Mg 200 Mg Oral Twice A Day 60 07/23/15 Acidophilus/Pectin, [place] 1 Each 1 Tab Oral Daily 07/23/15 Acetaminophen 500 Mg 1,000 Mg Oral Every 4 Hours As Needed 05/02/16 Amlodipine Besylate 5 Mg 5 Mg Oral Bedtime 30 09/22/16 Spironolactone 25 Mg 25 Mg Oral Every Three Days 09/22/16 Levothyroxine Sodium 200 Mcg 200 Mcg Oral Before Breakfast 30 09/22/16 Isosorbide Mononitrate 30 Mg 60 Mg Oral Bedtime 11/16/16 [Atrovent Estefania 0.0.6%] 2 [place] Nasal Twice A Day 11/16/16 Buspirone Hcl [...] Mg 40 Mg Oral Daily 10 01/04/17 Past Home Medications Medication Directions Ordered Status [...] Oral Every Other Day 09/22/16 Discontinued Ipratropium [place] 0.5 Mg/2.5 Ml Nebu, 0.5-2.5 Mg Inhalation Twice A Day Discontinued Topiramate 100 Mg Tablet, 100 Mg Oral Twice A Day 09/22/16 Discontinued Sucralfate 1 G Tablet, 1 Gm Oral Four Times Daily 09/22/16 Discontinued Phenol/Glycerin 30 Ml [place], 5 [place] Nasal As Needed 09/22/16 Discontinued Hydroxyzine Hcl [...] Use Cigarettes 05/02/2016 3:40pm Alcohol Use none 01/04/2017 11:07pm Drug Use none 01/04/2017 11:07pm Query Response Start Date Stop Date Smoking Status Current every day smoker Hospital Discharge Instructions No hospital discharge instructions. Plan of Care Discharge Date 01/05/17 12:15am Condition at Discharge Improved Instructions/Education Provided COPD (Chronic Obstructive Pulmonary Disease) ( ED) Prescriptions See Medication Section Referrals ESTEPHANIE MACHADO MD - 2-3 Days Functional Status Query Response Date Recorded Patient Behavior Cooperative Appropriate January 04, 2017 9:20pm Allergies, Adverse Reactions, Alerts Allergen Type Severity Reaction Status Last Updated IODINE Allergy Unknown Active 10/07/16 Penicillin Allergy Unknown Active 10/07/16 Cephalosporins Allergy Unknown Active 10/07/16 Tetracyclines Allergy Unknown Active 10/07/16 SULFA (SULFONAMIDE ANTIBIOTICS) Allergy Unknown Active 10/07/16 Morphine Allergy Unknown Active 10/07/16 Codeine Allergy Unknown Active 10/07/16 Propoxyphene Allergy Unknown Active 11/16/16 Aspirin Allergy Unknown Active 10/07/16 Erythromycin base [...] Vital Signs Vital Response Date/Time Temperature (Fahrenheit) 99.1 degrees F (97.6 - 99.5) 01/05/2017 12:15am Temperature Source Temporal Artery 01/05/2017 12:15am Pulse Rate (adult) 73 bpm (60 - 90) 01/05/2017 12:15am Respiratory Rate 22 bpm (12 - 24) 01/05/2017 12:15am Blood Pressure 166/71 mm Hg 01/05/2017 12:15am Blood Pressure 166/71 mm Hg 01/05/2017 12:15am O2 Sat by Pulse Oximetry 91 % (90 - 100) 01/05/2017 12:15am Oxygen Delivery Method 01/05/2017 12:15am Pain Intensity 7 11/16/2016 3:46pm Pain Location Body Site Modifier 10/22/2016 12:28am Pain Description [place] 10/21/2016 11:45pm Height 5 ft 5 in Weight 321 lb Body Mass Index 53.0 kg/m^2 Results Laboratory Results Test Name Result Units Flags Reference Collection Date/Time Result Date/ Time Comments White Blood Count 8.8 K/uL 4.8-10.8 10/07/2016 5:00am 10/07/2016 5: 49am Red Blood Count 4.41 M/uL 4.20-5.40 10/07/2016 5:00am 10/07/2016 5: 49am Hemoglobin 12.4 gm/dL 12.0-16.0 10/07/2016 5:00am 10/07/2016 5:49am Hematocrit 39.9 % 37.0-47.0 10/07/2016 5:00am 10/07/2016 5:49am Mean Corpuscular Volume 90.4 fL 81.0-99.0 10/07/2016 5:00am 10/07/2016 5:49am Mean Corpuscular Hemoglobin 28.0 pg 27.0-31.0 10/07/2016 5:00am 2016 5:49am Mean Corpuscular Hemoglobin Concent 31.0 g/dL 30.0-37.0 10/07/2016 5: 00am 10/07/2016 5:49am Red Cell Distribution Width 15.0 % H 11.5-14.5 10/07/2016 5:00am 2016 5:49am Platelet Count 229 K/uL 130-400 10/07/2016 5:00am 10/07/2016 5:49am Mean Platelet Volume 8.0 fL 7.4-10.4 10/07/2016 5:00am 10/07/2016 5: 49am Neutrophils (%) (Auto) 80.2 % H 42.2-75.2 10/07/2016 5:00am 10/07/2016 5 :49am Lymphocytes (%) (Auto) 17.0 % L 20.5-51.1 10/07/2016 5:00am 10/07/2016 5 :49am Monocytes (%) (Auto) 2.4 % 1.7-9.3 10/07/2016 5:00am 10/07/2016 5:49am Eosinophils (%) (Auto) 0.2 % 0-3 10/07/2016 5:00am 10/07/2016 5:49am Basophils (%) (Auto) 0.2 % 0.0-1.0 10/07/2016 5:00am 10/07/2016 5:49am Neutrophils # (Auto) 7.0 K/uL H 2.0-6.9 10/07/2016 5:00am 10/07/2016 5: 49am Lymphocytes # (Auto) 1.5 K/uL 1.2-3.4 10/07/2016 5:00am 10/07/2016 5: 49am Monocytes # (Auto) 0.2 K/uL 0.1-0.6 10/07/2016 5:00am 10/07/2016 5: 49am Eosinophils # (Auto) 0.0 K/uL 0.0-0.7 10/07/2016 5:00am 10/07/2016 5: 49am Basophils # (Auto) 0.0 K/uL 0.0-0.2 10/07/2016 5:00am 10/07/2016 5: 49am Random Glucose 178 mg/dL H 70-110 10/07/2016 5:00am 10/07/2016 5:30am Blood Urea Nitrogen 12 mg/dL 7-18 10/07/2016 5:00am 10/07/2016 5:30am Creatinine 0.9 mg/dL 0.55-1.02 10/07/2016 5:00am 10/07/2016 5:30am Sodium Level 144 mEq/L 136-145 10/07/2016 5:00am 10/07/2016 5:30am Potassium Level 4.2 mEq/L 3.5-5.0 10/07/2016 5:00am 10/07/2016 5:30am Chloride Level 110 mEq/L H 98-107 10/07/2016 5:00am 10/07/2016 5:30am Carbon Dioxide Level 24.3 mEq/L 21-32 10/07/2016 5:00am 10/07/2016 5: 30am Calcium Level 8.6 mg/dL L 8.8-10.5 10/07/2016 5:00am 10/07/2016 5:30am Troponin I < 0.02 NG/ML 0.0-0.2 10/07/2016 5:00am 10/07/2016 5:30am Glomerular Filtration Rate Calc 68.1 mL/min 10/07/2016 5:00am 2016 5:30am Pending Laboratory Results Test Name Collection Date/Time Pending Microbiology Results Procedure Source Collection Date/Time Procedures Procedure Status Date Provider(s) ROUTINE VENIPUNCTURE Completed 10/07/16 CHEST X-RAY 1 [...] AUTOMATED Completed 10/15/16 PROTHROMBIN TIME Completed 10/15/16 X-RAY EXAM HIP UNI 2-3 VIEWS Completed 10/21/16 X-RAY EXAM KNEE 4 OR MORE Completed 10/21/16 EMERGENCY DEPT VISIT Completed 10/21/16 EGD DIAGNOSTIC BRUSH WASH Completed 11/20/16 ARNOLDO GARCIA MD INJ, PROPOFOL, 10 MG Completed 11/20/16 RINGERS LACTATE INFUSION Completed 11/20/16 CULTURE OTHR SPECIMN AEROBIC Completed 12/07/16 CULTURE AEROBIC IDENTIFY Completed 12/07/16 MICROBE SUSCEPTIBLE GERARDO Completed 12/07/16 Portable x-ray of chest Active 10/07/16 EDEL KYLE MD X-ray of right knee, four or more views Active 10/21/16 MARTY DUNN MD Portable x-ray of chest Completed 01/04/17 SHERIF SANCHEZ M.D. Encounters Encounter Location Arrival/Admit Date Discharge/Depart Date Attending Provider Departed Emergency Room [place] 01/04/17 9:20pm 01/05/17 12:15am SHERIF SANCHEZ M.D. Registered Referred [place] 12/07/16 4:15pm JAY JAY WREN APRN Registered [facility] [place] 11/20/16 5:35am ARNOLDO GARCIA MD Departed Emergency Room [place] 10/21/16 8:52pm 10/22/16 12:28am MARTY DUNN MD Registered Referred [place] 10/15/16 3:35pm ESTEPHANIE MACHADO MD Departed Emergency Room [place] 10/07/16 4:17am 10/07/16 6:30am EDEL KYLE MD Recent Diagnosis
--- OUTSIDE RECORDS SUMMARY | 2018-07-10 19:23 | XMS REPORT ---
Author Author [email or web address] Medical Staff Organization [facility] Address [address] [place], [place] [address] Phone [phone] Summary purpose TRANSITION OF CARE AUTO GENERATION Chief Complaint and Reason for Visit No authorized Reason for Visit (Admitting Diagnosis) is available for this visit. Problem list No authorized problems tracked for continuity of care are available for this visit. Encounters No authorized problems tracked for encounter diagnoses are available for this visit. Medications No home medications recorded for this patient visit Allergies, adverse reactions, alerts No allergy information is available for this patient. Immunizations No immunizations recorded for this patient visit Relevant diagnostic tests and/or laboratory data No authorized results are available for this patient visit History of procedures No procedures recorded for this patient visit. Functional status No functional or cognitive status [...]
--- OUTSIDE RECORDS SUMMARY | 2018-07-10 19:23 | XMS REPORT ---
Author Author [facility] Medical Staff Organization [facility] Address [address] [place], [place] [address] Phone [phone] Care Team Providers Care Transmission Tester Name Role Phone DUY BELLAMY PP [phone] JANIA COOPERPDUY PP [phone] Summary purpose TRANSITION OF CARE AUTO GENERATION [...] Relevant diagnostic tests and/or laboratory data RESULTS Radiology Results [id number] Ankle 3 View PACs Image DATE OF EXAM: Nov 04 2014 RAD 0094-ANKLE 3 VIEW- LEFT: RADIOLOGY REPORT DATE OF SERVICE: 11/04/14 HISTORY: Left ankle pain LEFT ANKLE 3 [id number] HOURS The malleoli are intact. There is no fracture. There is a small accessory ossicle at the tip of the lateral malleolus. The talar dome is smooth. Heel spur is evident. IMPRESSION: Heel spur. No acute abnormality. Kevon Mitchell MD [facility]/ky11/04/2014 14:21:00 / 11/04/2014 14:25:12 cc:Dr. Tl Venegas This document has been electronically Signed by: On: DATE OF EXAM: Nov 04 2014 RAD 0094-ANKLE 3 VIEW- LEFT: RADIOLOGY REPORT DATE OF SERVICE: 11/04/14 HISTORY: Left ankle pain LEFT ANKLE 3 [id number] HOURS The malleoli are intact. There is no fracture. There is a small accessory ossicle at the tip of the lateral malleolus. The talar dome is smooth. Heel spur is evident. IMPRESSION: Heel spur. No acute abnormality. Kevon Mitchell MD [facility]/nh11/04/2014 14:21:00 / 11/04/2014 14:25:12 cc:Dr. Tl Venegas This document has been electronically Signed by: KEVON MITCHELL On: Nov 04 [id number] Result Amended on 2014-11-04 at 15:11:02. Previous status was MD. History of procedures No procedures recorded for [...]
--- OUTSIDE RECORDS SUMMARY | 2018-07-10 19:23 | XMS REPORT | Continuity of Care Document ---
Author Author [facility] Organization [facility] Address [facility] [address] [place] [address] Phone Unavailable Support Name Relationship Address Phone LATASHA GONZALEZ D.O. Caregiver [address] [place] [address] ESTEPHANIE MACHADO MD Caregiver [address] [place] [address] SHMUEL FRANCOIS Next Of Kin [address] [place] [address] Insurance Providers Payer Name Policy Number Subscriber Name Relationship Medicare [id number] Misa Lund 19 Self / Same As Patient [facility] [id number] Misa Lund 19 Self / Same As Patient Advance Directives Directive Response Recorded Date/Time Do you have an Advanced Directive? No 07/10/15 10:01pm Advance Directives No 09/22/16 10:40pm Living Will No 09/22/16 10:40pm Health Care Proxy No 09/26/16 7:13am Power of Principal Network Engineer for Health Care No 09/22/16 10:40pm Organ, Tissue, or Eye Donor No 09/22/16 10:40pm Do you have a signed organ donor card? No 12/08/15 9:31pm Chief Complaint and Reason for Visit Chief Complaint CHEST PAIN Reason for Visit [id number] Chest pain Problems Active Problems Medical Problem [...] Oral Three Times A Day 07/23/15 Acidophilus/Pectin, [place] 1 Each 1 Tab Oral Daily 07/23/15 [...] 200 Mcg Oral Daily 30 09/22/16 Ipratropium [place] 0.5 Mg/2.5 Ml 0.5-2.5 Mg Inhalation Twice A Day 09/22/16 Topiramate 100 Mg 100 Mg Oral Twice A Day 30 09/22/16 Sucralfate 1 G 1 Gm Oral Four Times Daily 09/22/16 Phenol/Glycerin 30 Ml 5 [place] Nasal As Needed 09/22/16 Hydroxyzine Hcl 50 [...] Twice A Day 1 ONE INHALATION 09/26/16 Past Home Medications Medication Directions Ordered Status [...] Use Cigarettes 05/02/2016 3:40pm Alcohol Use none 09/26/2016 5:01am Drug Use none 09/26/2016 5:01am Employment Retired 09/26/2016 5:01am Query Response Start Date Stop Date Smoking Status Current every day smoker Hospital Discharge Instructions No hospital discharge instructions. Plan of Care Discharge Date 09/26/16 7:05am Condition at Discharge Stable Instructions/Education Provided How to Stop Smoking (ED) COPD (Chronic Obstructive Pulmonary Disease) (DC) Prescriptions See Medication Section Referrals ESTEPHANIE MACHADO MD - Additional Instructions/Education I am giving you a prescription for medication to use twice daily to help keep her lungs opened and reduce the pressure that you have been feeling when you get short of breath. This medication should be used regularly every day. The inhaler that you have at home will be used when you get into trouble and have more shortness of breath. Again, it would be to your benefit to stop smoking. Functional Status Query Response Date Recorded Aris Coma Scale Total 15 September 26, 2016 3:00am Patient Behavior Cooperative Appropriate September 26, 2016 3:00am Allergies, Adverse Reactions, Alerts Allergen Type Severity [...] (Fahrenheit) 97.9 degrees F (97.6 - 99.5) 09/26/2016 3:00am Temperature Source Temporal Artery 09/26/2016 3:00am Pulse Rate (adult) 64 bpm (60 - 90) 09/26/2016 5:40am Respiratory Rate 18 bpm (12 - 24) 09/26/2016 5:40am Blood Pressure 135/68 mm Hg 09/26/2016 5:40am O2 Sat by Pulse Oximetry 93 % (90 - 100) 09/26/2016 5:40am Oxygen Delivery Method 09/26/2016 5:40am Oxygen Flow Rate 2 L/min 09/26/2016 3:00am Pain Intensity 6 09/23/2016 8:10am Pain Location Body Site Modifier 09/23/2016 11:14am Pain Description 09/24/2016 7:05pm Height 5 ft 5 in Weight 302 lb Body Mass Index 50.0 kg/m^2 Results Laboratory Results Test Name Result [...] PUSH Completed 09/22/16 TXPRODX INJ SAME DRUG CUSTOM STUDIO COORDINATOR Completed 09/22/16 EMERGENCY DEPT VISIT Completed 09/22/16 HOSPITAL OBSERVATION PER HR Completed 09/22/16 HOSPITAL OBSERVATION PER HR Completed 09/22/16 FENTANYL CITRATE INJECITON Completed 09/22/16 FENTANYL CITRATE INJECITON Completed 09/22/16 FENTANYL CITRATE INJECITON Completed 09/22/16 FENTANYL CITRATE INJECITON Completed 09/22/16 FENTANYL CITRATE INJECITON Completed 09/22/16 Portable x-ray of chest Active 09/22/16 SHANELLE GARCIA MD Portable x-ray of chest Active 09/24/16 CARMELINA CHRISTINE DO Portable x-ray of chest Completed 09/26/16 LATASHA GONZALEZ D.O. Encounters Encounter Location Arrival/Admit Date Discharge/Depart Date Attending Provider Departed Emergency Room [place] 09/26/16 2:47am 09/26/16 7:05am LATASHA GONZALEZ D.O. Departed Emergency Room [place] 09/24/16 6:39pm 01/30/17 10:32pm LATASHA GONZALEZ D.O. Discharged Inpatient (obs) [facility] [place] 09/22/16 11:18pm 09/23/16 1:36pm ESTEPHANIE MACHADO MD Registered Referred [facility] [place] 09/14/16 3:48pm ESTEPHANIE MACHADO MD Registered [facility] [place] 08/24/16 5:38pm CARY LUI APRN Recent Diagnosis
--- OUTSIDE RECORDS SUMMARY | 2018-07-10 19:26 | XMS REPORT | Continuity of Care Document ---
Author Author [facility] Address Unknown Phone Unavailable Allergies Active Description Code Type Severity Reaction Onset Reported/Identified Relationship to Patient Clinical Status Yes aspirin [id number] Drug Unknown N/A Yes banana Food Unknown N/A Yes cephalexin j59986 Drug Unknown N/A Yes codeine l40720 Drug Unknown N/A Yes diphenhydrAMINE z49757 Drug Unknown N/A Yes erythromycin base q07349 Drug Unknown N/A Yes Fish Food Unknown N/A Yes iodine l71001 Other Unknown N/A Yes ketorolac e18594 Drug Unknown N/A Yes Latex Environment Unknown N/A Yes Milk Products Food Unknown N/A Yes morphine r89274 Drug Unknown N/A Yes Mushroom Food Unknown N/A Yes oxyCODONE q74967 Drug Unknown N/A Yes penicillin i33536 Drug Unknown N/A Yes propoxyphene j93886 Drug Unknown N/A Yes sulfonamides Drug Unknown N/A Yes tetracycline l24845 Drug Unknown N/A Yes ASPIRIN 1191 Drug Allergy N/A N/A Yes BENADRYL [id number] Drug Allergy N/A N/A Yes CEPHALOSPORINS Drug Allergy N /A N/A Yes CODEINE Drug Allergy N/A N/A Yes DARVON 865110 Drug Allergy N/A N/A Yes ERYTHROMYCIN [id number] Drug Allergy N/A N/A Yes IODINE 5933 Drug Allergy N/A N/A Yes KEFLEX [id number] Drug Allergy N/A N/A Yes MORPHINE Drug Allergy N/A N/A Yes PENICILLINS Drug Allergy N/A N/A Yes SULFA ANTIBIOTICS Drug Allergy N/A N/A Yes TETRACYCLINE 89796 Drug Allergy N/A N/A Yes TORADOL 470217 Drug Allergy N/ A N/A Yes ASPIRIN 1191 Drug Allergy N/A N/A Yes BENADRYL [id number] Drug Allergy N/A N/A Yes DARUNAVIR-COBICISTAT 1637800 Drug Allergy N/A N/A Yes DARZALEX 43840002343 Drug Allergy N/A N/A Yes ERYTHROMYCIN 94829709185 Drug Allergy N/A N/A Yes IODINE 5933 Drug Allergy N/A N/A Yes KEFLEX [id number] Drug Allergy N/A N/A Yes MORPHINE SULFATE [id number] Drug Allergy N/A N/A Yes PENICILLIN Drug Allergy N/A N/A Yes PERCOCET 44417088103 Drug Allergy N/A N/A Yes SULFA Drug Allergy N/A N/A Yes SUPRAX 72909853897 Drug Allergy N/A N/A Yes TETRACYCLINE HCL 49250669899 Drug Allergy N/A N/A Yes TORODOL Drug Allergy N/A N/A Yes aspirin [id number] Drug Allergy Unknown N/A 11/26/2015 Yes codeine [id number] Drug Allergy Unknown N/A 11/26/2015 Yes diphenhydramine [id number] Drug Allergy Unknown N/A 11/26/2015 Yes erythromycin base A061830495 Drug Allergy Unknown N/A 11/26/2015 Yes ketorolac S630504497 Drug Allergy Unknown N/A 11/26/2015 Yes morphine P465985328 Drug Allergy Unknown N/A 11/26/2015 Yes tetracycline S376936795 Drug Allergy Unknown N/A 11/26/2015 Yes Cephalosporins N085928490 Drug Allergy Unknown N/A 12/06/2015 Yes Iodine and Iodide Containing Produc Y771757164 Drug Allergy Unknown N/A 07/2016 Yes Penicillins F136670093 Drug Allergy Unknown N/A 12/06/2015 Yes Sulfa (Sulfonamide Antibiotics) L273668318 Drug Allergy Unknown N/A 2015 Yes cephalexin N104527707 Drug Allergy Unknown N/A 05/02/2018 Yes Cephalosporins A656318087 Drug Allergy Unknown N/A 05/02/2018 Yes codeine R051003983 Drug Allergy Unknown N/A 05/02/2018 Yes diphenhydramine U299338925 Drug Allergy Unknown N/A 05/02/2018 Yes erythromycin base M852378013 Drug Allergy Unknown N/A 05/02/2018 Yes iodine U028751949 Drug Allergy Unknown N/A 05/02/2018 Yes ketorolac C823868332 Drug Allergy Unknown N/A 05/02/2018 Yes morphine F880101198 Drug Allergy Unknown N/A 05/02/2018 Yes Penicillins X688100895 Drug Allergy Unknown N/A 05/02/2018 Yes propoxyphene Q583911424 Drug Allergy Unknown N/A 05/02/2018 Yes Sulfa (Sulfonamide Antibiotics) [id number] Drug Allergy Unknown N/A 2017 Yes tetracycline B640898354 Drug Allergy Unknown N/A 05/02/2018 Yes aspirin R513295712 Drug Allergy Unknown N/A 05/12/2018 Medications Medication Packaging Start Date Stop Date Route Dosage Sig FENTANYL Transdermal 06/30/2015 07/25/2015 Transdermal 1010 every 3 days ZYRTEC ALLERGY ORAL 07/25/2015 01/22/2017 ORAL 3030 daily TYLENOL EXTRA STRENGTH ORAL 2014 ORAL 501924 every 4 hours TYLENOL ORAL 07/25/2015 ORAL 659742 every 6 hours TRAZODONE HCL ORAL 07/25/2015 08/22/2016 ORAL 3030 at bedtime TRAMADOL HCL ORAL 07/25/2015 08/04/2015 ORAL q4-6h TOPIRAMATE ORAL 07/25/2015 08/30/2016 ORAL 6060 twice daily Q-TUSSIN ORAL 07/25/2015 08/22/2016 ORAL PROAIR HFA Inhalation 07/25/2015 08/30/2016 Inhalation POTASSIUM CHLORIDE ER ORAL 201408/22/2016 ORAL 3030 daily OMEPRAZOLE ORAL 07/25/2015 08/22/2016 ORAL 3030 twice daily NORCO ORAL 07/25/2015 ORAL 2020 twice daily breakthrough MUCINEX ORAL 07/25/2015 08/04/2015 ORAL 2020 twice daily MOBIC ORAL 07/25/2015 ORAL 3030 twice daily LOPERAMIDE A-D ORAL 07/25/2015 07/30/2015 ORAL LEVOTHYROXINE SODIUM ORAL 201408/22/2016 ORAL 3030 daily GABAPENTIN ORAL 07/25/2015 08/22/2016 ORAL 9090 3 times a day FENTANYL Transdermal 07/25/2015 08/22/2016 Transdermal 1010 every 3 days DULOXETINE HCL ORAL 07/25/2015 ORAL 3030 daily CYMBALTA ORAL 07/25/2015 ORAL 3030 daily COUMADIN ORAL 07/25/2015 08/27/2016 ORAL 3030 every other day CARVEDILOL ORAL 07/25/2015 10/24/2017 ORAL 6060 twice daily CARBAMAZEPINE ORAL 07/25/2015 10/24/2017 ORAL 6060 twice daily BUSPAR ORAL 07/25/2015 10/24/2017 ORAL 6060 three times daily BIOTIN 5000 Oral 07/25/2015 08/22/2016 Oral twice daily ATIVAN ORAL 07/25/2015 08/04/2015 ORAL every 6 hours NERISSA ALLERGY ORAL 07/25/2015 ORAL 3030 daily ACIDOPHILUS/PECTIN ORAL 07/25/2015 10/28/2017 ORAL daily ABILIFY ORAL 07/25/2015 ORAL 3030 daily NITROSTAT Sublingual 10/24/2015 Sublingual 990503 MINTOX ORAL 10/24/2015 01/22/2017 ORAL MILK OF MAGNESIA ORAL 10/24/2015 01/22/2017 ORAL for constipation LOPERAMIDE A-D ORAL 10/24/2015 10/29/2015 ORAL as directed LIDOCAINE External 10/24/2015 02/01/2017 External four times each day TOPIRAMATE ORAL 2015 10/28/2017 ORAL 6060 twice daily TRAMADOL HCL ORAL 01/31/2016 02/11/2017 ORAL 4040 4 times a day SPIRONOLACTONE ORAL 01/31/2016 08/22/2016 ORAL every other day LORAZEPAM ORAL 01/31/2016 02/10/2016 ORAL every 6 hours DULOXETINE HCL ORAL 01/31/2016 10/28/2017 ORAL daily ABILIFY ORAL 01/31/2016 10/28/2017 ORAL daily ATROVENT NASAL 02/06/2016 02/16/2016 NASAL 6060 3 times a day SYNTHROID ORAL 03/09/2016 10/24/2017 ORAL 3030 daily NYSTATIN External 04/12/2016 External 6060 3 times a day HYDROXYZINE HCL ORAL 05/14/2016 10/24/2017 ORAL 3030 daily for itching AMLODIPINE BESYLATE ORAL 201508/27/2016 ORAL 9090 daily LISINOPRIL ORAL 07/05/2016 01/22/2017 ORAL 3030 daily COUMADIN ORAL 07/10/2016 10/26/2017 ORAL 4848 daily BACTROBAN External 08/07/2016 08/21/2016 External 2222 3 times a day TRAMADOL HCL ORAL 08/22/2016 04/15/2017 ORAL 2020 daily IPRATROPIUM BROMIDE Nasal 2015 Nasal 11 ATIVAN ORAL 08/22/2016 09/01/2016 ORAL 3030 three times daily AMLODIPINE BESYLATE ORAL 201510/24/2017 ORAL 3030 daily NYSTATIN External 08/27/2016 External 6060 3 times a day ATROVENT NASAL 08/27/2016 09/06/2016 NASAL 6060 3 times a day ATIVAN ORAL 11/08/2016 12/24/2016 ORAL 6060 every 12 hours ATIVAN ORAL 12/24/2016 10/28/2017 ORAL 3030 every 12 hours TRAZODONE HCL ORAL 01/22/2017 ORAL 3030 MYLANTA ORAL 01/22/2017 10/28/2017 ORAL daily PROAIR HFA Inhalation 02/01/2017 10/26/2017 Inhalation 8.58.5 every 6 hours OMEPRAZOLE ORAL 02/01/2017 10/28/2017 ORAL 6060 twice daily LIDOCAINE External 02/01/2017 External four times each day IPRATROPIUM BROMIDE Nasal 201602/22/2017 Nasal 11 IMDUR ORAL 02/01/2017 ORAL 3030 at bedtime GABAPENTIN ORAL 02/01/2017 10/24/2017 ORAL 819570 3 times a day DIFLUCAN ORAL 02/01/2017 02/02/2017 ORAL 55 daily IPRATROPIUM BROMIDE Inhalation 10/28/2017 Inhalation 11 three times daily VANCOMYCIN HCL 03/05/2017 10/28/2017 twice daily TRAMADOL HCL ORAL 04/05/2017 04/15/2017 ORAL 2020 daily NAPHCON-A OPHTHALMIC 04/05/2017 04/15/2017 OPHTHALMIC 8080 four times daily DULOXETINE HCL ORAL 04/05/2017 10/28/2017 ORAL 3030 daily NYSTATIN EXTERNAL 06/03/2017 06/10/2017 EXTERNAL 6060 3 times a day SYNTHROID ORAL 10/24/2017 11/23/2017 ORAL 3030 daily METOCLOPRAMIDE HCL ORAL 10/24/2017 11/23/2017 ORAL 6060 twice daily ISOSORBIDE MONONITRATE ER ORAL 08/201711/23/2017 ORAL 3030 daily HYDROXYZINE HCL ORAL 10/24/2017 01/15/2018 ORAL 3030 daily for itching GABAPENTIN ORAL 10/24/2017 11/23/2017 ORAL 278189 3 times a day CARVEDILOL ORAL 10/24/2017 11/23/2017 ORAL 6060 twice daily CARBAMAZEPINE ORAL 10/24/2017 11/23/2017 ORAL 6060 twice daily BUSPIRONE HCL ORAL 10/24/2017 11/23/2017 ORAL 9090 three times daily AMLODIPINE BESYLATE ORAL 201711/23/2017 ORAL 3030 daily PROAIR HFA Inhalation 10/26/2017 01/13/2018 Inhalation 8.58.5 every 6 hours COUMADIN ORAL 10/26/2017 11/26/2017 ORAL 3030 daily TRAMADOL HCL ORAL 10/28/2017 ORAL q 6 hours TOPAMAX ORAL 10/28/2017 ORAL 6060 twice daily OMEPRAZOLE ORAL 10/28/2017 11/12/2017 ORAL 6060 daily IPRATROPIUM-ALBUTEROL Inhalation Inhalation CYMBALTA ORAL 10/28/2017 ORAL 3030 daily CRANBERRY ORAL 10/28/2017 ORAL twice each day CHLORASEPTIC SORE THROAT ORAL 10/28 ORAL q 2 hrs ABILIFY ORAL 10/28/2017 ORAL 3030 daily OMEPRAZOLE ORAL 11/12/2017 12/12/2017 ORAL 6060 twice daily TOPAMAX 11/19/2017 ORAL 60 twice daily TEGRETOL 11/19/2017 ORAL 120 4 times a day SYNTHROID 11/19/2017 ORAL 30 daily REGLAN 11/19/2017 ORAL 120 before meals and bedtime PROAIR HFA 11/19/2017 Inhalation 8.5 every 6 hours PRILOSEC ML 11/19/2017 ORAL 30 NORVASC 11/19/2017 ORAL 30 daily LEVAQUIN 11/19/2017 Oral 5 once each day ISOSORBIDE MONONITRATE ER 2017 ORAL 30 daily HYDROXYZINE HCL 11/19/2017 ORAL 40 4 times a day GABAPENTIN 11/19/2017 ORAL 90 3 times a day CYMBALTA 11/19/2017 ORAL 30 daily COUMADIN 11/19/2017 ORAL 30 daily CARVEDILOL 11/19/2017 ORAL 60 twice daily BUSPIRONE HCL 11/19/2017 ORAL 60 twice daily ABILIFY 11/19/2017 ORAL 30 daily MEDROL ORAL 11/25/2017 12/01/2017 ORAL 2121 as directed COUMADIN ORAL 11/26/2017 12/20/2017 ORAL 3030 daily SINGULAIR ORAL 12/06/2017 ORAL 3030 daily HYDROXYZINE HCL ORAL 12/16/2017 01/15/2018 ORAL 3030 daily for itching COUMADIN ORAL 12/20/2017 01/19/2018 ORAL 3535 daily SINGULAIR ORAL 01/10/2018 ORAL 3030 daily PROAIR HFA Inhalation 01/13/2018 Inhalation 8.58.5 every 6 hours XARELTO ORAL 01/17/2018 ORAL 3030 daily Problems Date Dx Coded Attending Type Code Diagnosis Diagnosed By 11/26/2015 Other F17.210 NICOTINE DEPENDENCE, CIGARETTES, UNCOMPLICATED 11/26/2015 Other K21.9 GASTRO- ESOPHAGEAL REFLUX DISEASE WITHOUT ESOPHAGITIS 11/26/2015 Other R07.9 CHEST PAIN , UNSPECIFIED 11/27/2015 Other M25.561 PAIN IN RIGHT KNEE 11/27/2015 Other W19.XXXA UNSPECIFIED FALL, INITIAL ENCOUNTER 11/30/2015 Other I50.9 HEART FAILURE, UNSPECIFIED 11/30/2015 Other J44.1 CHRONIC OBSTRUCTIVE PULMONARY DISEASE W (ACUTE) EXACERBATION 11/30/2015 Other J45.901 UNSPECIFIED ASTHMA WITH (ACUTE) EXACERBATION 12/03/2015 Other M25.551 PAIN IN RIGHT HIP 12/03/2015 Other S93.401A SPRAIN OF UNSPECIFIED LIGAMENT OF RIGHT ANKLE, INIT ENCNTR 12/03/2015 Other W01.0XXA FALL SAME LEV FROM SLIP/TRIP W/O STRIKE AGAINST OBJECT, INIT 12/06/2015 Other F17.210 NICOTINE DEPENDENCE, CIGARETTES, UNCOMPLICATED 12/06/2015 Other F41.1 GENERALIZED ANXIETY DISORDER 12/06/2015 Other R07.89 OTHER CHEST PAIN 04/03/2016 ELISEO KELLY E03.9 Hypothyroidism, unspecified 04/03/2016 ELISEO KELLY I10 Essential (primary) hypertension 04/17/2016 IAN BROOKS APRN Other G89.29 OTHER CHRONIC PAIN 04/17/2016 IAN BROOKS APRN Other M54.16 RADICULOPATHY, LUMBAR REGION 04/17/2016 IAN BROOKS APRN Other M54.5 LOW BACK PAIN 04/18/2016 ABDIEL ROMERO MD Other G89.29 OTHER CHRONIC PAIN 04/18/2016 ABDIEL ROMERO MD Other M54.16 RADICULOPATHY, LUMBAR REGION 04/18/2016 ABDIEL ROMERO MD Other M54.5 LOW BACK PAIN 04/18/2016 ABDIEL ROMERO MD Other M62.830 MUSCLE SPASM OF BACK 06/25/2016 ELISEO KELLY I82.409 Acute embolism and thombos unsp deep vn unsp lower extremity 06/30/2016 Other R05 COUGH 06/30/2016 Other R07.89 OTHER CHEST PAIN 07/13/2016 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 I10 Essential (primary) hypertension 07/16/2016 IAN BROOKS APRN Other S70.01XA CONTUSION OF RIGHT HIP, INITIAL ENCOUNTER 07/16/2016 IAN BROOKS APRN Other W18.30XA FALL ON SAME LEVEL, UNSPECIFIED, INITIAL ENCOUNTER 07/16/2016 IAN BROOKS APRN Other Y92.[address] IN [facility] 07/20/2016 BENIGNO PALACIOS Other S83.91XA SPRAIN OF UNSPECIFIED SITE OF RIGHT KNEE, INITIAL ENCOUNTER 07/20/2016 BENIGNO PALACIOS Other W19.XXXA UNSPECIFIED FALL, INITIAL ENCOUNTER 07/31/2016 ABDIEL ROMERO MD Other E66.09 OTHER OBESITY DUE TO EXCESS CALORIES 07/31/2016 ABDIEL ROEMRO MD Other F17.210 NICOTINE DEPENDENCE, CIGARETTES, UNCOMPLICATED 07/31/2016 ABDIEL ROMERO MD Other G89.29 OTHER CHRONIC PAIN 07/31/2016 ABDIEL ROMERO MD Other M54.9 DORSALGIA, UNSPECIFIED 07/31/2016 ABDIEL ROMERO MD Other W01.198A FALL SAME LEV FROM SLIP/TRIP W STRIKE AGNST OTH OBJECT, INIT 07/31/2016 ABDIEL ROMERO MD Other Y92.[address] [facility] 08/05/2016 MEME MILLS APRN Other M54.9 DORSALGIA, UNSPECIFIED 08/05/2016 MEME MILLS APRN Other S32.000A WEDGE COMPRESSION FRACTURE OF UNSP LUMBAR VERTEBRA, INIT 08/05/2016 MEME MILLS APRN Other W18.39XA OTHER FALL ON SAME LEVEL, INITIAL ENCOUNTER 08/05/2016 MEME MILLS APRN Other Y92.[address] OF OCCURRENCE OF THE EXTERNAL CAUSE 08/05/2016 LINA, MEME M FOOD SAFETY COORDINATOR Other Z91.81 HISTORY OF FALLING 09/10/2016 ANDREW SULTANA JJ Other F17.210 NICOTINE DEPENDENCE, CIGARETTES, UNCOMPLICATED 09/10/2016 ANDREW SULTANA JJ Other I10 ESSENTIAL (PRIMARY) HYPERTENSION 09/10/2016 ANDREW SULTANA JJ Other J44.9 CHRONIC OBSTRUCTIVE PULMONARY DISEASE, UNSPECIFIED 09/10/2016 ANDREW SULTANA JJ Other K21.9 GASTRO-ESOPHAGEAL REFLUX DISEASE WITHOUT ESOPHAGITIS 09/10/2016 ANDREW SULTANA JJ Other R07.89 OTHER CHEST PAIN 01/23/2018 TRE GARCIA MD E03.9 Hypothyroidism, unspecified 01/23/2018 TRE GARCIA MD E87.6 Hypokalemia 01/23/2018 TRE GARCIA MD F17.200 Nicotine dependence, unspecified, uncomplicated 01/23/2018 TRE GARCIA MD F31.4 Bipolar disord, crnt epsd depress, sev, w/o psych features 01/23/2018 TRE GARCIA MD F43.10 Post-traumatic stress disorder, unspecified 01/23/2018 TRE GARCIA MD F60.9 Personality disorder, unspecified 01/23/2018 TRE GARCIA MD G62.9 Polyneuropathy, unspecified 01/23/2018 TRE GARCIA MD I10 Essential (primary) hypertension 01/29/2018 TRE GARCIA MD B96.4 Proteus (mirabilis) (morganii) causing dis classd elswhr 01/29/2018 TRE GARCIA MD F31.4 Bipolar disord, crnt epsd depress, sev, w/o psych features 01/29/2018 TRE GARCIA MD F43.10 Post-traumatic stress disorder, unspecified 01/29/2018 TRE GARCIA MD N39.0 Urinary tract infection, site not specified 02/18/2018 Other I82.403 ACUTE EMBOLISM AND THOMBOS UNSP DEEP VEINS OF LOW EXTRM, BI 02/18/2018 Other I82.603 ACUTE EMBOLISM AND THOMBOS UNSP VEINS OF UP EXTREM, BI 02/18/2018 Other 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 02/18/2018 Other Z79.899 OTHER MCC (CURRENT) DRUG THERAPY 02/18/2018 Other Z79.01 MCC (CURRENT) USE OF ANTICOAGULANTS 02/18/2018 Other E78.2 MIXED HYPERLIPIDEMIA 02/18/2018 Other I10 ESSENTIAL ( PRIMARY) HYPERTENSION 02/18/2018 Other I82.409 ACUTE EMBOLISM AND THOMBOS UNSP DEEP VN UNSP LOWER EXTREMITY 02/18/2018 Other J44.9 CHRONIC OBSTRUCTIVE PULMONARY DISEASE, UNSPECIFIED 02/18/2018 Other R07.1 CHEST PAIN ON BREATHING 02/18/2018 Other R60.0 LOCALIZED EDEMA 02/18/2018 Other I82.409 ACUTE EMBOLISM AND THOMBOS UNSP DEEP VN UNSP LOWER EXTREMITY 02/18/2018 Other I82.409 ACUTE EMBOLISM AND THOMBOS UNSP DEEP VN UNSP LOWER EXTREMITY 02/18/2018 Other I82.409 ACUTE EMBOLISM AND THOMBOS UNSP DEEP VN UNSP LOWER EXTREMITY 02/18/2018 Other I82.409 ACUTE EMBOLISM AND THOMBOS UNSP DEEP VN UNSP LOWER EXTREMITY 02/18/2018 Other I82.409 ACUTE EMBOLISM AND THOMBOS UNSP DEEP VN UNSP LOWER EXTREMITY 02/18/2018 Other I82.409 ACUTE EMBOLISM AND THOMBOS UNSP DEEP VN UNSP LOWER EXTREMITY 02/18/2018 Other E78.2 MIXED HYPERLIPIDEMIA 02/18/2018 Other I10 ESSENTIAL ( PRIMARY) HYPERTENSION 02/18/2018 Other I82.409 ACUTE EMBOLISM AND THOMBOS UNSP DEEP VN UNSP LOWER EXTREMITY 02/18/2018 Other J44.9 CHRONIC OBSTRUCTIVE PULMONARY DISEASE, UNSPECIFIED 02/18/2018 Other R07.1 CHEST PAIN ON BREATHING 02/18/2018 Other R60.0 LOCALIZED EDEMA 02/18/2018 Other Z86.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SIS AND EMBOLISM 02/18/2018 Other I82.409 ACUTE EMBOLISM AND THOMBOS UNSP DEEP VN UNSP LOWER EXTREMITY 02/18/2018 Other I82.409 ACUTE EMBOLISM AND THOMBOS UNSP DEEP VN UNSP LOWER EXTREMITY 02/18/2018 ELISEO CATHERINE APRN Other I82.409 ACUTE EMBOLISM AND THOMBOS UNSP DEEP VN UNSP LOWER EXTREMITY 03/06/2018 VALERY BOTELLO E03.9 Hypothyroidism, unspecified 03/06/2018 VALERY BOTELLO E78.5 Hyperlipidemia, unspecified 03/06/2018 VALERY BOTELLO F31.9 Bipolar disorder, unspecified 03/06/2018 VALERY BOTELLO F41.1 Generalized anxiety disorder 03/06/2018 VALERY BOTELLO J43.9 Emphysema, unspecified 03/06/2018 VALERY BOTELLO L03.90 Cellulitis, unspecified 03/06/2018 VALERY BOTELLO M17.12 Unilateral primary osteoarthritis, left knee 03/06/2018 VALERY BOTELLO N39.0 Urinary tract infection, site not specified 03/06/2018 VALERY BOTELLO R45.851 Suicidal ideations 03/06/2018 VALERY BOTELLO Z68.42 Body mass index (BMI) 45.0-49.9, adult 03/06/2018 VALERY BOTELLO 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 03/06/2018 VALERY BOTELLO Z86.718 Personal history of other venous thrombosis and embolism 03/12/2018 TRE GARCIA MD E03.9 Hypothyroidism, unspecified 03/12/2018 TRE GARCIA MD F17.200 Nicotine dependence, unspecified, uncomplicated 03/12/2018 TRE GARCIA MD F31.4 Bipolar disord, crnt epsd depress, sev, w/o psych features 03/12/2018 TRE GARCIA MD F43.10 Post-traumatic stress disorder, unspecified 03/12/2018 TRE GARCIA MD F60.3 Borderline personality disorder 03/12/2018 TRE GARCIA MD G89.29 Other chronic pain 03/12/2018 TRE GARCIA MD J30.9 Allergic rhinitis, unspecified 03/19/2018 Other I73.9 PERIPHERAL VASCULAR DISEASE, UNSPECIFIED 05/03/2018 EDEL ANTHONY MD, Ot E03.9 HYPOTHYROIDISM, UNSPECIFIED 05/03/2018 EDEL ANTHONY MD Ot E11.9 TYPE 2 DIABETES MELLITUS WITHOUT COMPLIC 05/03/2018 EDEL ANTHONY MD Ot E78.00 PURE HYPERCHOLESTEROLEMIA, UNSPECIFIED 05/03/2018 EDEL ANTHONY MD Ot F17.210 NICOTINE DEPENDENCE, CIGARETTES, UNCOMPL 05/03/2018 EDEL ANTHONY MD Ot F31.9 BIPOLAR DISORDER, UNSPECIFIED 05/03/2018 EDEL ANTHONY MD, Ot F41.9 ANXIETY DISORDER, UNSPECIFIED 05/03/2018 EDEL ANTHONY MD, Ot G43.909 MIGRAINE, UNSP, NOT INTRACTABLE, WITHOUT 05/03/2018 EDEL ANTHONY MD Ot I10 ESSENTIAL (PRIMARY) HYPERTENSION 05/03/2018 EDEL ANTHONY MD, Ot J44.9 CHRONIC OBSTRUCTIVE PULMONARY DISEASE, U 05/03/2018 EDEL ANTHONY MD, Ot K21.9 GASTRO-ESOPHAGEAL REFLUX DISEASE WITHOUT 05/03/2018 EDEL ANTHONY MD Ot R07.89 OTHER CHEST PAIN 05/03/2018 EDEL ANTHONY MD Ot Z86.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 05/03/2018 EDEL ANTHONY MD Ot Z88.0 ALLERGY STATUS TO PENICILLIN 05/03/2018 EDEL ANTHONY MD Ot Z88.1 ALLERGY STATUS TO OTHER ANTIBIOTIC AGENT 05/03/2018 EDEL ANTHONY MD Ot Z88.2 ALLERGY STATUS TO SULFONAMIDES STATUS 05/03/2018 EDEL ANTHONY MD Ot Z88.5 ALLERGY STATUS TO NARCOTIC AGENT STATUS 05/03/2018 EDEL ANTHONY MD Ot Z88.8 ALLERGY STATUS TO OTH DRUG/MEDS/BIOL SUB 05/03/2018 EDEL ANTHONY MD Ot Z91.041 RADIOGRAPHIC DYE ALLERGY STATUS 05/05/2018 ZHOU TAM Ot E03.9 HYPOTHYROIDISM, UNSPECIFIED 05/05/2018 ZHOU TAM Ot E11.9 TYPE 2 DIABETES MELLITUS WITHOUT COMPLIC 05/05/2018 ZHOU TAM Ot E78.00 PURE HYPERCHOLESTEROLEMIA, UNSPECIFIED 05/05/2018 ZHOU TAM Ot F17.200 NICOTINE DEPENDENCE, UNSPECIFIED, UNCOMP 05/05/2018 ZHOU TAM Ot F32.9 MAJOR DEPRESSIVE DISORDER, SINGLE EPISOD 05/05/2018 BLESSING EPPERSONIS Ot F41.9 ANXIETY DISORDER, UNSPECIFIED 05/05/2018 ZHOU TAM Ot G43.909 MIGRAINE, UNSP, NOT INTRACTABLE, WITHOUT 05/05/2018 TAM EPPERSON Ot I10 ESSENTIAL (PRIMARY) HYPERTENSION 05/05/2018 TAM EPPERSON Ot K21.9 GASTRO-ESOPHAGEAL REFLUX DISEASE WITHOUT 05/05/2018 TAM EPPERSON Ot M25.562 PAIN IN LEFT KNEE 05/05/2018 TAM EPPERSON Ot W19.XXXA UNSPECIFIED FALL, INITIAL ENCOUNTER 05/05/2018 TAM EPPERSON Ot X50.1XXA OVEREXERTION FROM PROLONGED STATIC OR AW 05/05/2018 TAM EPPERSON Ot Y92.[address] IN [facility] 05/05/2018 TAM EPPERSON Ot Z86.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 05/05/2018 TAM EPPERSON Ot Z88.0 ALLERGY STATUS TO PENICILLIN 05/05/2018 TAM EPPERSON Ot Z88.1 ALLERGY STATUS TO OTHER ANTIBIOTIC AGENT 05/05/2018 TAM EPPERSON Ot Z88.2 ALLERGY STATUS TO SULFONAMIDES STATUS 05/05/2018 TAM EPPERSON Ot Z88.5 ALLERGY STATUS TO NARCOTIC AGENT STATUS 05/05/2018 TAM EPPERSON Ot Z88.8 ALLERGY STATUS TO OT DRUG/MEDS/BIOL SUB 05/05/2018 TAM EPPERSON Ot Z91.041 RADIOGRAPHIC DYE ALLERGY STATUS 05/08/2018 EDEL ANTHONY MD Ot E03.9 HYPOTHYROIDISM, UNSPECIFIED 05/08/2018 EDEL ANTHONY MD Ot E11.9 TYPE 2 DIABETES MELLITUS WITHOUT COMPLIC 05/08/2018 EDEL ANTHONY MD Ot E78.00 PURE HYPERCHOLESTEROLEMIA, UNSPECIFIED 05/08/2018 EDEL ANTHONY MD Ot F17.210 NICOTINE DEPENDENCE, CIGARETTES, UNCOMPL 05/08/2018 EDEL ANTHONY MD Ot F31.9 BIPOLAR DISORDER, UNSPECIFIED 05/08/2018 EDEL ANTHONY MD, Ot F41.9 ANXIETY DISORDER, UNSPECIFIED 05/08/2018 EDEL ANTHONY MD Ot G43.909 MIGRAINE, UNSP, NOT INTRACTABLE, WITHOUT 05/08/2018 EDEL ANTHONY MD Ot I10 ESSENTIAL (PRIMARY) HYPERTENSION 05/08/2018 EDEL ANTHONY MD, Ot J44.9 CHRONIC OBSTRUCTIVE PULMONARY DISEASE, U 05/08/2018 EDEL ANTHONY MD, Ot K21.9 GASTRO-ESOPHAGEAL REFLUX DISEASE WITHOUT 05/08/2018 EDEL ANTHONY MD Ot R07.89 OTHER CHEST PAIN 05/08/2018 EDEL ANTHONY MD, Ot Z86.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 05/08/2018 EDEL ANTHONY MD, Ot Z88.0 ALLERGY STATUS TO PENICILLIN 05/08/2018 EDEL ANTHONY MD, Ot Z88.1 ALLERGY STATUS TO OTHER ANTIBIOTIC AGENT 05/08/2018 EDEL ANTHONY MD, Ot Z88.2 ALLERGY STATUS TO SULFONAMIDES STATUS 05/08/2018 EDEL ANTHONY MD, Ot Z88.5 ALLERGY STATUS TO NARCOTIC AGENT STATUS 05/08/2018 EDEL ANTHONY MD, Ot Z88.8 ALLERGY STATUS TO OTH DRUG/MEDS/BIOL SUB 05/08/2018 EDEL ANTHONY MD, Ot Z91.041 RADIOGRAPHIC DYE ALLERGY STATUS 05/10/2018 PRIYA ROUSE APRN Ot E03.9 HYPOTHYROIDISM, UNSPECIFIED 05/10/2018 PRIYA ROUSE APRN Ot E11.9 TYPE 2 DIABETES MELLITUS WITHOUT COMPLIC 05/10/2018 PRIYA ROUSE APRN Ot E78.00 PURE HYPERCHOLESTEROLEMIA, UNSPECIFIED 05/10/2018 PRIYA ROUSE APRN Ot G43.909 MIGRAINE, UNSP, NOT INTRACTABLE, WITHOUT 05/10/2018 PRIYA ROUSE APRN Ot I10 ESSENTIAL (PRIMARY) HYPERTENSION 05/10/2018 PRIYA ROUSE APRN Ot K21.9 GASTRO-ESOPHAGEAL REFLUX DISEASE WITHOUT 05/10/2018 PRIYA ROUSE APRN Ot M25.562 PAIN IN LEFT KNEE 05/10/2018 PRIYA ROUSE APRN Ot R40.2142 COMA SCALE, EYES OPEN, SPONTANEOUS, EMR 05/10/2018 PRIYA ROUSE APRN Ot R40.2252 COMA SCALE, BEST VERBAL RESPONSE, ORIENT 05/10/2018 PRIYA ROUSE APRN Ot R40.2362 COMA SCALE, BEST MOTOR RESPONSE, OBEYS C 05/10/2018 PRIYA ROUSE APRN Ot R55 SYNCOPE AND COLLAPSE 05/10/2018 PRIYA ROUSE APRN Ot S16.1XXA STRAIN OF MUSCLE, FASCIA AND TENDON AT N 05/10/2018 PRIYA ROUSE FOOD SAFETY COORDINATOR Ot V00.811A FALL FROM MOVING WHEELCHAIR (POWERED), I 05/10/2018 PRIYA ROUSE FOOD SAFETY COORDINATOR Ot W22.09XA STRIKING AGAINST OTHER STATIONARY OBJECT 05/10/2018 PRIYA ROUSE FOOD SAFETY COORDINATOR Ot 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 05/10/2018 PRIYA ROUSE FOOD SAFETY COORDINATOR Ot Z86.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 05/10/2018 PRIYA ROUSE FOOD SAFETY COORDINATOR Ot Z88.0 ALLERGY STATUS TO PENICILLIN 05/10/2018 PRIYA ROUSE FOOD SAFETY COORDINATOR Ot Z88.1 ALLERGY STATUS TO OTHER ANTIBIOTIC AGENT 05/10/2018 PRIYA ROUSE APRN Ot Z88.2 ALLERGY STATUS TO SULFONAMIDES STATUS 05/10/2018 PRIYA ROUSE APRN Ot Z88.4 ALLERGY STATUS TO ANESTHETIC AGENT STATU 05/10/2018 PRIYA ROUSE APRN Ot Z88.5 ALLERGY STATUS TO NARCOTIC AGENT STATUS 05/10/2018 PRIYA ROUSE APRN Ot Z88.6 ALLERGY STATUS TO ANALGESIC AGENT STATUS 05/10/2018 PRIYA ROUSE FOOD SAFETY COORDINATOR Ot Z88.8 ALLERGY STATUS TO OTH DRUG/MEDS/BIOL SUB 05/11/2018 TAM EPPERSON Ot E03.9 HYPOTHYROIDISM, UNSPECIFIED 05/11/2018 TAM EPPERSON Ot E11.9 TYPE 2 DIABETES MELLITUS WITHOUT COMPLIC 05/11/2018 BLESSING EPPERSONIS Ot E78.00 PURE HYPERCHOLESTEROLEMIA, UNSPECIFIED 05/11/2018 BLESSING EPPERSONIS Ot F32.9 MAJOR DEPRESSIVE DISORDER, SINGLE EPISOD 05/11/2018 BLESSING EPPERSONIS Ot F41.9 ANXIETY DISORDER, UNSPECIFIED 05/11/2018 ZHOU TAM Ot G43.909 MIGRAINE, UNSP, NOT INTRACTABLE, WITHOUT 05/11/2018 ZHOU TAM Ot I10 ESSENTIAL (PRIMARY) HYPERTENSION 05/11/2018 BLESSING EPPERSONIS Ot K21.9 GASTRO-ESOPHAGEAL REFLUX DISEASE WITHOUT 05/11/2018 ZHOU TAM Ot M54.2 CERVICALGIA 05/11/2018 TAM EPPERSON Ot S13.4XXA SPRAIN OF LIGAMENTS OF CERVICAL SPINE, I 05/11/2018 TAM EPPERSON Ot W19.XXXA UNSPECIFIED FALL, INITIAL ENCOUNTER 05/11/2018 TAM EPPERSON Ot W22.09XA STRIKING AGAINST OTHER STATIONARY OBJECT 05/11/2018 TAM EPPERSON Ot Z79.01 MCC (CURRENT) USE OF ANTICOAGULANT 05/11/2018 TAM EPPERSON Ot Z86.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 05/11/2018 TAM EPPERSON Ot Z88.0 ALLERGY STATUS TO PENICILLIN 05/11/2018 BLESSING EPPERSONIS Ot Z88.1 ALLERGY STATUS TO OTHER ANTIBIOTIC AGENT 05/11/2018 TAM EPPERSON Ot Z88.2 ALLERGY STATUS TO SULFONAMIDES STATUS 05/11/2018 TAM EPPERSON Ot Z88.4 ALLERGY STATUS TO ANESTHETIC AGENT STATU 05/11/2018 TAM EPPERSON Ot Z88.5 ALLERGY STATUS TO NARCOTIC AGENT STATUS 05/11/2018 TAM EPPERSON Ot Z88.8 ALLERGY STATUS TO OTH DRUG/MEDS/BIOL SUB 05/11/2018 TAM EPEPRSON Ot Z91.041 RADIOGRAPHIC DYE ALLERGY STATUS 05/12/2018 PRIYA ROUSE APRN Ot E03.9 HYPOTHYROIDISM, UNSPECIFIED 05/12/2018 PRIYA ROUSE APRN Ot E11.9 TYPE 2 DIABETES MELLITUS WITHOUT COMPLIC 05/12/2018 PRIYA ROUSE APRN Ot E78.00 PURE HYPERCHOLESTEROLEMIA, UNSPECIFIED 05/12/2018 PRIYA ROUSE APRN Ot F17.200 NICOTINE DEPENDENCE, UNSPECIFIED, UNCOMP 05/12/2018 PRIYA ROUSE APRN Ot F31.9 BIPOLAR DISORDER, UNSPECIFIED 05/12/2018 PRIYA ROUSE APRN Ot F41.9 ANXIETY DISORDER, UNSPECIFIED 05/12/2018 PRIYA ROUSE APRN Ot G43.909 MIGRAINE, UNSP, NOT INTRACTABLE, WITHOUT 05/12/2018 PRIYA ROUSE APRN Ot I10 ESSENTIAL (PRIMARY) HYPERTENSION 05/12/2018 PRIYA ROUSE APRN Ot K21.9 GASTRO-ESOPHAGEAL REFLUX DISEASE WITHOUT 05/12/2018 PRIYA ROUSE APRN Ot R07.89 OTHER CHEST PAIN 05/12/2018 PRIYA ROUSE APRN Ot Z86.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 05/12/2018 PRIYA ROUSE APRN Ot Z88.0 ALLERGY STATUS TO PENICILLIN 05/12/2018 PRIYA ROUSE APRN Ot Z88.1 ALLERGY STATUS TO OTHER ANTIBIOTIC AGENT 05/12/2018 PRIYA ROUSE APRN Ot Z88.2 ALLERGY STATUS TO SULFONAMIDES STATUS 05/12/2018 PRIYA ROUSE APRN Ot Z88.4 ALLERGY STATUS TO ANESTHETIC AGENT STATU 05/12/2018 PRIYA ROUSE APRN Ot Z88.5 ALLERGY STATUS TO NARCOTIC AGENT STATUS 05/12/2018 PRIYA ROUSE APRN Ot Z88.6 ALLERGY STATUS TO ANALGESIC AGENT STATUS 05/12/2018 PRIYA ROUSE APRN Ot Z88.8 ALLERGY STATUS TO OTH DRUG/MEDS/BIOL SUB 05/12/2018 PRIYA ROUSE APRN Ot Z91.041 RADIOGRAPHIC DYE ALLERGY STATUS 05/13/2018 PRIYA ROUSE APRN Ot E03.9 HYPOTHYROIDISM, UNSPECIFIED 05/13/2018 PRIYA ROUSE APRN Ot E11.9 TYPE 2 DIABETES MELLITUS WITHOUT COMPLIC 05/13/2018 PRIYA ROUSE APRN Ot E78.00 PURE HYPERCHOLESTEROLEMIA, UNSPECIFIED 05/13/2018 PRIYA ROUSE APRN Ot G43.909 MIGRAINE, UNSP, NOT INTRACTABLE, WITHOUT 05/13/2018 PRIYA ROUSE APRN Ot I10 ESSENTIAL (PRIMARY) HYPERTENSION 05/13/2018 PRIYA ROUSE APRN Ot K21.9 GASTRO-ESOPHAGEAL REFLUX DISEASE WITHOUT 05/13/2018 PRIYA ROUSE APRN Ot M25.562 PAIN IN LEFT KNEE 05/13/2018 PRIYA ROUSE APRN Ot R40.2142 COMA SCALE, EYES OPEN, SPONTANEOUS, EMR 05/13/2018 PRIYA ROUSE APRN Ot R40.2252 COMA SCALE, BEST VERBAL RESPONSE, ORIENT 05/13/2018 PRIYA ROUSE APRN Ot R40.2362 COMA SCALE, BEST MOTOR RESPONSE, OBEYS C 05/13/2018 PRIYA ROUSE APRN Ot R55 SYNCOPE AND COLLAPSE 05/13/2018 PRIYA ROUSE APRN Ot S16.1XXA STRAIN OF MUSCLE, FASCIA AND TENDON AT N 05/13/2018 PRIYA ROUSE APRN Ot V00.811A FALL FROM MOVING WHEELCHAIR (POWERED), I 05/13/2018 PRIYA ROUSE APRN Ot W22.09XA STRIKING AGAINST OTHER STATIONARY OBJECT 05/13/2018 PRIYA ROUSE APRN Ot 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 05/13/2018 PRIYA ROUSE FOOD SAFETY COORDINATOR Ot Z86.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 05/13/2018 PRIYA ROUSE FOOD SAFETY COORDINATOR Ot Z88.0 ALLERGY STATUS TO PENICILLIN 05/13/2018 PRIYA ROUSE FOOD SAFETY COORDINATOR Ot Z88.1 ALLERGY STATUS TO OTHER ANTIBIOTIC AGENT 05/13/2018 PRIYA ROUSE FOOD SAFETY COORDINATOR Ot Z88.2 ALLERGY STATUS TO SULFONAMIDES STATUS 05/13/2018 PRIYA ROUSE FOOD SAFETY COORDINATOR Ot Z88.4 ALLERGY STATUS TO ANESTHETIC AGENT STATU 05/13/2018 PRIYA ROUSE FOOD SAFETY COORDINATOR Ot Z88.5 ALLERGY STATUS TO NARCOTIC AGENT STATUS 05/13/2018 PRIYA ROUSE FOOD SAFETY COORDINATOR Ot Z88.6 ALLERGY STATUS TO ANALGESIC AGENT STATUS 05/13/2018 PRIYA ROUSE FOOD SAFETY COORDINATOR Ot Z88.8 ALLERGY STATUS TO OTH DRUG/MEDS/BIOL SUB 05/13/2018 TAM EPPERSON Ot E03.9 HYPOTHYROIDISM, UNSPECIFIED 05/13/2018 ZHOU TAM Ot E11.9 TYPE 2 DIABETES MELLITUS WITHOUT COMPLIC 05/13/2018 BERNMARIE, TAM Ot E78.00 PURE HYPERCHOLESTEROLEMIA, UNSPECIFIED 05/13/2018 BERNMARIE TAM Ot F32.9 MAJOR DEPRESSIVE DISORDER, SINGLE EPISOD 05/13/2018 ZHOU TAM Ot F41.9 ANXIETY DISORDER, UNSPECIFIED 05/13/2018 BERNOT TAM Ot G43.909 MIGRAINE, UNSP, NOT INTRACTABLE, WITHOUT 05/13/2018 CORINEOT, TAM Ot I10 ESSENTIAL (PRIMARY) HYPERTENSION 05/13/2018 ZHOU TAM Ot K21.9 GASTRO-ESOPHAGEAL REFLUX DISEASE WITHOUT 05/13/2018 BERNOT, TAM Ot M54.2 CERVICALGIA 05/13/2018 BERNMARIE TAM Ot S13.4XXA SPRAIN OF LIGAMENTS OF CERVICAL SPINE, I 05/13/2018 ZHOU TAM Ot W19.XXXA UNSPECIFIED FALL, INITIAL ENCOUNTER 05/13/2018 ZHOU TAM Ot W22.09XA STRIKING AGAINST OTHER STATIONARY OBJECT 05/13/2018 BLESSING EPPERSONIS Ot 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 05/13/2018 BLESSING EPPERSONIS Ot Z86.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 05/13/2018 TAM EPPERSON Ot Z88.0 ALLERGY STATUS TO PENICILLIN 05/13/2018 BERNTAM SALAZAR Ot Z88.1 ALLERGY STATUS TO OTHER ANTIBIOTIC AGENT 05/13/2018 BERNTAM SALAZAR Ot Z88.2 ALLERGY STATUS TO SULFONAMIDES STATUS 05/13/2018 BLESSING EPPERSONIS Ot Z88.4 ALLERGY STATUS TO ANESTHETIC AGENT STATU 05/13/2018 BERNTAM SALAZAR Ot Z88.5 ALLERGY STATUS TO NARCOTIC AGENT STATUS 05/13/2018 TAM EPPERSON Ot Z88.8 ALLERGY STATUS TO OTH DRUG/MEDS/BIOL SUB 05/13/2018 TAM EPPERSON Ot Z91.041 RADIOGRAPHIC DYE ALLERGY STATUS 05/14/2018 PRIYA ROUSE APRN Ot E03.9 HYPOTHYROIDISM, UNSPECIFIED 05/14/2018 PRIYA ROUSE APRN Ot E11.9 TYPE 2 DIABETES MELLITUS WITHOUT COMPLIC 05/14/2018 PRIYA ROUSE APRN Ot E78.00 PURE HYPERCHOLESTEROLEMIA, UNSPECIFIED 05/14/2018 PRIYA ROUSE APRN Ot F17.200 NICOTINE DEPENDENCE, UNSPECIFIED, UNCOMP 05/14/2018 PRIYA ROUSE APRN Ot F31.9 BIPOLAR DISORDER, UNSPECIFIED 05/14/2018 PRIYA ROUSE APRN Ot F41.9 ANXIETY DISORDER, UNSPECIFIED 05/14/2018 PRIYA ROUSE APRN Ot G43.909 MIGRAINE, UNSP, NOT INTRACTABLE, WITHOUT 05/14/2018 PRIYA ROUSE APRN Ot I10 ESSENTIAL (PRIMARY) HYPERTENSION 05/14/2018 PRIYA ROUSE APRN Ot K21.9 GASTRO-ESOPHAGEAL REFLUX DISEASE WITHOUT 05/14/2018 PRIYA ROUSE APRN Ot R07.89 OTHER CHEST PAIN 05/14/2018 PRIYA ROUSE APRN Ot Z86.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 05/14/2018 PRIYA ROUSE APRN Ot Z88.0 ALLERGY STATUS TO PENICILLIN 05/14/2018 PRIYA ROUSE APRN Ot Z88.1 ALLERGY STATUS TO OTHER ANTIBIOTIC AGENT 05/14/2018 PRIYA ROUSE APRN Ot Z88.2 ALLERGY STATUS TO SULFONAMIDES STATUS 05/14/2018 PRIYA ROUSE APRN Ot Z88.4 ALLERGY STATUS TO ANESTHETIC AGENT STATU 05/14/2018 PRIYA ROUSE APRN Ot Z88.5 ALLERGY STATUS TO NARCOTIC AGENT STATUS 05/14/2018 PRIYA ROUSE FOOD SAFETY COORDINATOR Ot Z88.6 ALLERGY STATUS TO ANALGESIC AGENT STATUS 05/14/2018 PRIYA ROUSE APRN Ot Z88.8 ALLERGY STATUS TO OTH DRUG/MEDS/BIOL SUB 05/14/2018 PRIYA ROUSE APRN Ot Z91.041 RADIOGRAPHIC DYE ALLERGY STATUS 05/18/2018 PRIYA ROUSE APRN Ot E03.9 HYPOTHYROIDISM, UNSPECIFIED 05/18/2018 PRIYA ROUSE FOOD SAFETY COORDINATOR Ot E11.9 TYPE 2 DIABETES MELLITUS WITHOUT COMPLIC 05/18/2018 PRIYA ROUSE APRN Ot E78.00 PURE HYPERCHOLESTEROLEMIA, UNSPECIFIED 05/18/2018 PRIYA ROUSE APRN Ot F17.200 NICOTINE DEPENDENCE, UNSPECIFIED, UNCOMP 05/18/2018 PRIYA ROUSE APRN Ot F31.9 BIPOLAR DISORDER, UNSPECIFIED 05/18/2018 PRIYA ROUSE APRN Ot F41.9 ANXIETY DISORDER, UNSPECIFIED 05/18/2018 PRIYA ROSUE APRN Ot G43.909 MIGRAINE, UNSP, NOT INTRACTABLE, WITHOUT 05/18/2018 PRIYA ROUSE APRN Ot I10 ESSENTIAL (PRIMARY) HYPERTENSION 05/18/2018 PRIYA ROUSE APRN Ot K21.9 GASTRO-ESOPHAGEAL REFLUX DISEASE WITHOUT 05/18/2018 PRIYA ROUSE FOOD SAFETY COORDINATOR Ot R07.89 OTHER CHEST PAIN 05/18/2018 PRIYA ROUSE APRN Ot Z86.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 05/18/2018 PRIYA ROUSE APRN Ot Z88.0 ALLERGY STATUS TO PENICILLIN 05/18/2018 PRIAY ROUSE FOOD SAFETY COORDINATOR Ot Z88.1 ALLERGY STATUS TO OTHER ANTIBIOTIC AGENT 05/18/2018 PRIYA ROUSE APRN Ot Z88.2 ALLERGY STATUS TO SULFONAMIDES STATUS 05/18/2018 PRIYA ROUSE APRN Ot Z88.4 ALLERGY STATUS TO ANESTHETIC AGENT STATU 05/18/2018 PRIYA ROUSE APRN Ot Z88.5 ALLERGY STATUS TO NARCOTIC AGENT STATUS 05/18/2018 PRIYA ROUSE APRN Ot Z88.6 ALLERGY STATUS TO ANALGESIC AGENT STATUS 05/18/2018 PRIYA ROUSE APRN Ot Z88.8 ALLERGY STATUS TO OTH DRUG/MEDS/BIOL SUB 05/18/2018 PRIYA ROUSE APRN Ot Z91.041 RADIOGRAPHIC DYE ALLERGY STATUS 05/23/2018 PRIYA ROUSE APRN Ot E03.9 HYPOTHYROIDISM, UNSPECIFIED 05/23/2018 PRIYA ROUSE APRN Ot E11.9 TYPE 2 DIABETES MELLITUS WITHOUT COMPLIC 05/23/2018 PRIYA ROUSE APRN Ot E78.00 PURE HYPERCHOLESTEROLEMIA, UNSPECIFIED 05/23/2018 PRIYA ROUSE APRN Ot F17.210 NICOTINE DEPENDENCE, CIGARETTES, UNCOMPL 05/23/2018 PRIYA ROUSE APRN Ot F31.9 BIPOLAR DISORDER, UNSPECIFIED 05/23/2018 PRIYA ROUSE APRN Ot F41.9 ANXIETY DISORDER, UNSPECIFIED 05/23/2018 PRIYA ROUSE APRN Ot G43.909 MIGRAINE, UNSP, NOT INTRACTABLE, WITHOUT 05/23/2018 PRIYA ROUSE APRN Ot I10 ESSENTIAL (PRIMARY) HYPERTENSION 05/23/2018 PRIYA ROUSE APRN Ot K21.9 GASTRO-ESOPHAGEAL REFLUX DISEASE WITHOUT 05/23/2018 PRIYA ROUSE APRN Ot R07.89 OTHER CHEST PAIN 05/23/2018 PRIYA ROUSE APRN Ot Z86.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 05/23/2018 PRIYA ROUSE APRN Ot Z87.09 PERSONAL HISTORY OF OTHER DISEASES OF TH 05/23/2018 PRIYA ROUSE APRN Ot Z88.0 ALLERGY STATUS TO PENICILLIN 05/23/2018 PRIYA ROUSE APRN Ot Z88.1 ALLERGY STATUS TO OTHER ANTIBIOTIC AGENT 05/23/2018 PRIYA ROUSE APRN Ot Z88.2 ALLERGY STATUS TO SULFONAMIDES STATUS 05/23/2018 PRIYA ROUSE APRN Ot Z88.4 ALLERGY STATUS TO ANESTHETIC AGENT STATU 05/23/2018 PRIYA ROUSE APRN Ot Z88.5 ALLERGY STATUS TO NARCOTIC AGENT STATUS 05/23/2018 PRIYA ROUSE APRN Ot Z88.6 ALLERGY STATUS TO ANALGESIC AGENT STATUS 05/23/2018 PRIYA ROUSE APRN Ot Z88.8 ALLERGY STATUS TO OTH DRUG/MEDS/BIOL SUB 05/23/2018 PRIYA ROUSE APRN Ot Z91.041 RADIOGRAPHIC DYE ALLERGY STATUS 05/26/2018 PRIYA ROUSE APRN Ot E03.9 HYPOTHYROIDISM, UNSPECIFIED 05/26/2018 PRIYA ROUSE APRN Ot E11.9 TYPE 2 DIABETES MELLITUS WITHOUT COMPLIC 05/26/2018 PRIYA ROUSE APRN Ot E78.00 PURE HYPERCHOLESTEROLEMIA, UNSPECIFIED 05/26/2018 PRIYA ROUSE APRN Ot F17.210 NICOTINE DEPENDENCE, CIGARETTES, UNCOMPL 05/26/2018 PRIYA ROUSE APRN Ot F31.9 BIPOLAR DISORDER, UNSPECIFIED 05/26/2018 PRIYA ROUSE APRN Ot F41.9 ANXIETY DISORDER, UNSPECIFIED 05/26/2018 PRIYA ROUSE APRN Ot G43.909 MIGRAINE, UNSP, NOT INTRACTABLE, WITHOUT 05/26/2018 PRIYA ROUSE APRN Ot I10 ESSENTIAL (PRIMARY) HYPERTENSION 05/26/2018 PRIYA ROUSE APRN Ot K21.9 GASTRO-ESOPHAGEAL REFLUX DISEASE WITHOUT 05/26/2018 PRIYA ROUSE APRN Ot R07.89 OTHER CHEST PAIN 05/26/2018 PRIYA ROUSE APRN Ot Z86.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 05/26/2018 PRIYA ROUSE APRN Ot Z87.09 PERSONAL HISTORY OF OTHER DISEASES OF TH 05/26/2018 PRIYA ROUSE APRN Ot Z88.0 ALLERGY STATUS TO PENICILLIN 05/26/2018 PRIYA ROUSE APRN Ot Z88.1 ALLERGY STATUS TO OTHER ANTIBIOTIC AGENT 05/26/2018 PRIYA ROUSE APRN Ot Z88.2 ALLERGY STATUS TO SULFONAMIDES STATUS 05/26/2018 PRIYA ROUSE APRN Ot Z88.4 ALLERGY STATUS TO ANESTHETIC AGENT STATU 05/26/2018 PRIYA ROUSE APRN Ot Z88.5 ALLERGY STATUS TO NARCOTIC AGENT STATUS 05/26/2018 PRIYA ROUSE APRN Ot Z88.6 ALLERGY STATUS TO ANALGESIC AGENT STATUS 05/26/2018 PRIYA ROUSE APRN Ot Z88.8 ALLERGY STATUS TO OTH DRUG/MEDS/BIOL SUB 05/26/2018 PRIYA ROUSE APRN Ot Z91.041 RADIOGRAPHIC DYE ALLERGY STATUS 05/30/2018 PRIYA ROUSE APRN Ot E03.9 HYPOTHYROIDISM, UNSPECIFIED 05/30/2018 PRIYA ROUSE APRN Ot E11.9 TYPE 2 DIABETES MELLITUS WITHOUT COMPLIC 05/30/2018 PRIYA ROUSE APRN Ot E78.00 PURE HYPERCHOLESTEROLEMIA, UNSPECIFIED 05/30/2018 PRIYA ROUSE APRN Ot F32.9 MAJOR DEPRESSIVE DISORDER, SINGLE EPISOD 05/30/2018 PRIYA ROUSE APRN Ot F41.9 ANXIETY DISORDER, UNSPECIFIED 05/30/2018 PRIYA ROUSE APRN Ot G43.909 MIGRAINE, UNSP, NOT INTRACTABLE, WITHOUT 05/30/2018 PRIYA ROUSE APRN Ot I10 ESSENTIAL (PRIMARY) HYPERTENSION 05/30/2018 PRIYA ROUSE APRN Ot M54.5 LOW BACK PAIN 05/30/2018 PRIYA ROUSE APRN Ot R40.2142 COMA SCALE, EYES OPEN, SPONTANEOUS, EMR 05/30/2018 PRIYA ROUSE APRN Ot R40.2252 COMA SCALE, BEST VERBAL RESPONSE, ORIENT 05/30/2018 PRIYA ROUSE APRN Ot R40.2362 COMA SCALE, BEST MOTOR RESPONSE, OBEYS C 05/30/2018 PRIYA ROUSE APRN Ot S30.0XXA CONTUSION OF LOWER BACK AND PELVIS, INIT 05/30/2018 PRIYA ROUSE APRN Ot W01.0XXA FALL SAME LEV FROM SLIP/TRIP W/O STRIKE 05/30/2018 PRIYA ROUSE APRN Ot Z77.22 CNTCT W AND EXPSR TO ENVIRON TOBACCO SMO 05/30/2018 PRIYA ROUSE APRN Ot Z86.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 05/30/2018 PRIYA ROUSE APRN Ot Z87.09 PERSONAL HISTORY OF OTHER DISEASES OF TH 05/30/2018 PRIYA ROUSE APRN Ot Z88.0 ALLERGY STATUS TO PENICILLIN 05/30/2018 PRIYA ROUSE APRN Ot Z88.1 ALLERGY STATUS TO OTHER ANTIBIOTIC AGENT 05/30/2018 PRIYA ROUSE APRN Ot Z88.2 ALLERGY STATUS TO SULFONAMIDES STATUS 05/30/2018 PRIYA ROUSE APRN Ot Z88.4 ALLERGY STATUS TO ANESTHETIC AGENT STATU 05/30/2018 PRIYA ROUSE APRN Ot Z88.5 ALLERGY STATUS TO NARCOTIC AGENT STATUS 05/30/2018 PRIYA ROUSE APRN Ot Z88.6 ALLERGY STATUS TO ANALGESIC AGENT STATUS 05/30/2018 PRIYA ROUSE APRN Ot Z88.8 ALLERGY STATUS TO OTH DRUG/MEDS/BIOL SUB 05/30/2018 PRIYA ROUSE APRN Ot Z90.710 ACQUIRED ABSENCE OF BOTH CERVIX AND UTER 05/30/2018 PRIYA ROUSE APRN Ot Z91.041 RADIOGRAPHIC DYE ALLERGY STATUS 05/30/2018 PRIYA ROUSE APRN Ot Z98.51 TUBAL LIGATION STATUS 06/02/2018 PRIYA ROUSE APRN Ot E03.9 HYPOTHYROIDISM, UNSPECIFIED 06/02/2018 PRIYA ROUSE APRN Ot E11.9 TYPE 2 DIABETES MELLITUS WITHOUT COMPLIC 06/02/2018 PRIYA ROUES APRN Ot E78.00 PURE HYPERCHOLESTEROLEMIA, UNSPECIFIED 06/02/2018 PRIYA ROUSE APRN Ot F32.9 MAJOR DEPRESSIVE DISORDER, SINGLE EPISOD 06/02/2018 PRIYA ROUSE APRN Ot F41.9 ANXIETY DISORDER, UNSPECIFIED 06/02/2018 PRIYA ROUSE APRN Ot G43.909 MIGRAINE, UNSP, NOT INTRACTABLE, WITHOUT 06/02/2018 PRIYA ROUSE APRN Ot I10 ESSENTIAL (PRIMARY) HYPERTENSION 06/02/2018 PRIYA ROUSE APRN Ot M54.5 LOW BACK PAIN 06/02/2018 PRIYA ROUSE APRN Ot R40.2142 COMA SCALE, EYES OPEN, SPONTANEOUS, EMR 06/02/2018 PRIYA ROUSE APRN Ot R40.2252 COMA SCALE, BEST VERBAL RESPONSE, ORIENT 06/02/2018 PRIYA ROUSE APRN Ot R40.2362 COMA SCALE, BEST MOTOR RESPONSE, OBEYS C 06/02/2018 PRIYA ROUSE APRN Ot S30.0XXA CONTUSION OF LOWER BACK AND PELVIS, INIT 06/02/2018 PRIYA ROUSE APRN Ot W01.0XXA FALL SAME LEV FROM SLIP/TRIP W/O STRIKE 06/02/2018 PRIYA ROUSE APRN Ot Z77.22 CNTCT W AND EXPSR TO ENVIRON TOBACCO SMO 06/02/2018 PRIYA ROUSE APRN Ot Z86.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 06/02/2018 PRIYA ROUSE APRN Ot Z87.09 PERSONAL HISTORY OF OTHER DISEASES OF TH 06/02/2018 PRIYA ROUSE APRN Ot Z88.0 ALLERGY STATUS TO PENICILLIN 06/02/2018 PRIYA ROUSE APRN Ot Z88.1 ALLERGY STATUS TO OTHER ANTIBIOTIC AGENT 06/02/2018 PRIYA ROUSE FOOD SAFETY COORDINATOR Ot Z88.2 ALLERGY STATUS TO SULFONAMIDES STATUS 06/02/2018 PRIYA ROUSE FOOD SAFETY COORDINATOR Ot Z88.4 ALLERGY STATUS TO ANESTHETIC AGENT STATU 06/02/2018 PRIYA ROUSE FOOD SAFETY COORDINATOR Ot Z88.5 ALLERGY STATUS TO NARCOTIC AGENT STATUS 06/02/2018 PRIYA ROUSE FOOD SAFETY COORDINATOR Ot Z88.6 ALLERGY STATUS TO ANALGESIC AGENT STATUS 06/02/2018 PRIYA ROUSE FOOD SAFETY COORDINATOR Ot Z88.8 ALLERGY STATUS TO OTH DRUG/MEDS/BIOL SUB 06/02/2018 PRIYA ROUSE FOOD SAFETY COORDINATOR Ot Z90.710 ACQUIRED ABSENCE OF BOTH CERVIX AND UTER 06/02/2018 PRIYA ROUSE APRN Ot Z91.041 RADIOGRAPHIC DYE ALLERGY STATUS 06/02/2018 PRIYA ROUSE APRN Ot Z98.51 TUBAL LIGATION STATUS 06/08/2018 TAM EPPERSON Ot E03.9 HYPOTHYROIDISM, UNSPECIFIED 06/08/2018 BLESSING EPPERSONIS Ot E11.9 TYPE 2 DIABETES MELLITUS WITHOUT COMPLIC 06/08/2018 ZHOU TAM Ot E78.00 PURE HYPERCHOLESTEROLEMIA, UNSPECIFIED 06/08/2018 BERNMARIE, TAM Ot F31.9 BIPOLAR DISORDER, UNSPECIFIED 06/08/2018 BLESSING EPPERSONIS Ot F41.9 ANXIETY DISORDER, UNSPECIFIED 06/08/2018 ZHOU TAM Ot G43.909 MIGRAINE, UNSP, NOT INTRACTABLE, WITHOUT 06/08/2018 ZHOU, TAM Ot I10 ESSENTIAL (PRIMARY) HYPERTENSION 06/08/2018 ZHOU TAM Ot K21.9 GASTRO-ESOPHAGEAL REFLUX DISEASE WITHOUT 06/08/2018 BERNMARIE, TAM Ot R40.2142 COMA SCALE, EYES OPEN, SPONTANEOUS, EMR 06/08/2018 BLESSING EPPERSONIS Ot R40.2252 COMA SCALE, BEST VERBAL RESPONSE, ORIENT 06/08/2018 TAM EPPERSON Ot R40.2362 COMA SCALE, BEST MOTOR RESPONSE, OBEYS C 06/08/2018 TAM EPPERSON Ot S09.90XA UNSPECIFIED INJURY OF HEAD, INITIAL ENCO 06/08/2018 TAM EPPERSON Ot S80.01XA CONTUSION OF RIGHT KNEE, INITIAL ENCOUNT 06/08/2018 BERNOT, TAM Ot W07.XXXA FALL FROM CHAIR, INITIAL ENCOUNTER 06/08/2018 ZHOU TAM Ot W22.09XA STRIKING AGAINST OTHER STATIONARY OBJECT 06/08/2018 BLESSING EPPERSONIS Ot Z77.22 CNTCT W AND EXPSR TO ENVIRON TOBACCO SMO 06/08/2018 BLESSING EPPERSONIS Ot Z86.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 06/08/2018 BLESSING EPPERSONIS Ot Z88.0 ALLERGY STATUS TO PENICILLIN 06/08/2018 ZHOU TAM Ot Z88.1 ALLERGY STATUS TO OTHER ANTIBIOTIC AGENT 06/08/2018 ZHOU TAM Ot Z88.2 ALLERGY STATUS TO SULFONAMIDES STATUS 06/08/2018 BLESSING EPPERSONIS Ot Z88.4 ALLERGY STATUS TO ANESTHETIC AGENT STATU 06/08/2018 BLESSING EPPERSONIS Ot Z88.5 ALLERGY STATUS TO NARCOTIC AGENT STATUS 06/08/2018 BLESSING EPPERSONIS Ot Z88.6 ALLERGY STATUS TO ANALGESIC AGENT STATUS 06/08/2018 BLESSING EPPERSONIS Ot Z88.8 ALLERGY STATUS TO OTH DRUG/MEDS/BIOL SUB 06/08/2018 BLESSING EPPERSONIS Ot Z90.710 ACQUIRED ABSENCE OF BOTH CERVIX AND UTER 06/08/2018 ZHOU TAM Ot Z91.041 RADIOGRAPHIC DYE ALLERGY STATUS 06/08/2018 ZHOU TAM Ot Z98.51 TUBAL LIGATION STATUS 06/10/2018 ZHOU TAM Ot E03.9 HYPOTHYROIDISM, UNSPECIFIED 06/10/2018 BERNMARIE, TAM Ot E11.9 TYPE 2 DIABETES MELLITUS WITHOUT COMPLIC 06/10/2018 ZHOU, TAM Ot E78.00 PURE HYPERCHOLESTEROLEMIA, UNSPECIFIED 06/10/2018 BERNMARIE TAM Ot F31.9 BIPOLAR DISORDER, UNSPECIFIED 06/10/2018 BERNMARIE TAM Ot F41.9 ANXIETY DISORDER, UNSPECIFIED 06/10/2018 BERNOT, TAM Ot G43.909 MIGRAINE, UNSP, NOT INTRACTABLE, WITHOUT 06/10/2018 BERNOT, TAM Ot I10 ESSENTIAL (PRIMARY) HYPERTENSION 06/10/2018 BERNMARIE, TAM Ot K21.9 GASTRO-ESOPHAGEAL REFLUX DISEASE WITHOUT 06/10/2018 BERNOT, TAM Ot R40.2142 COMA SCALE, EYES OPEN, SPONTANEOUS, EMR 06/10/2018 ZHOU TAM Ot R40.2252 COMA SCALE, BEST VERBAL RESPONSE, ORIENT 06/10/2018 CORINEMARIE TAM Ot R40.2362 COMA SCALE, BEST MOTOR RESPONSE, OBEYS C 06/10/2018 TAM EPPERSON Ot S09.90XA UNSPECIFIED INJURY OF HEAD, INITIAL ENCO 06/10/2018 TAM EPPERSON Ot S80.01XA CONTUSION OF RIGHT KNEE, INITIAL ENCOUNT 06/10/2018 TAM EPPERSON Ot W07.XXXA FALL FROM CHAIR, INITIAL ENCOUNTER 06/10/2018 TAM EPPERSON Ot W22.09XA STRIKING AGAINST OTHER STATIONARY OBJECT 06/10/2018 TAM EPPERSON Ot Z77.22 CNTCT W AND EXPSR TO ENVIRON TOBACCO SMO 06/10/2018 TAM EPPERSON Ot Z86.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 06/10/2018 TAM EPPERSON Ot Z88.0 ALLERGY STATUS TO PENICILLIN 06/10/2018 TAM EPPERSON Ot Z88.1 ALLERGY STATUS TO OTHER ANTIBIOTIC AGENT 06/10/2018 TAM EPPERSON Ot Z88.2 ALLERGY STATUS TO SULFONAMIDES STATUS 06/10/2018 TAM EPPERSON Ot Z88.4 ALLERGY STATUS TO ANESTHETIC AGENT STATU 06/10/2018 TAM EPPERSON Ot Z88.5 ALLERGY STATUS TO NARCOTIC AGENT STATUS 06/10/2018 TAM EPPERSON Ot Z88.6 ALLERGY STATUS TO ANALGESIC AGENT STATUS 06/10/2018 TAM EPPERSON Ot Z88.8 ALLERGY STATUS TO OTH DRUG/MEDS/BIOL SUB 06/10/2018 TAM EPPERSON Ot Z90.710 ACQUIRED ABSENCE OF BOTH CERVIX AND UTER 06/10/2018 TAM EPPERSON Ot Z91.041 RADIOGRAPHIC DYE ALLERGY STATUS 06/10/2018 TAM EPPERSON Ot Z98.51 TUBAL LIGATION STATUS 06/18/2018 YOLETTE BAIN, PIERRE Sanchez Ot E11.9 TYPE 2 DIABETES MELLITUS WITHOUT COMPLIC 06/18/2018 PIERRE DE LA VEGA MD Ot E78.2 MIXED HYPERLIPIDEMIA 06/18/2018 PIERRE DE LA VEGA MD Ot I10 ESSENTIAL (PRIMARY) HYPERTENSION 06/18/2018 PIERRE DE LA VEGA MD Ot Z72.0 TOBACCO USE 06/20/2018 PIERRE DE LA VEGA MD Ot E03.9 HYPOTHYROIDISM, UNSPECIFIED 06/20/2018 PIERRE DE LA VEGA MD Ot E11.9 TYPE 2 DIABETES MELLITUS WITHOUT COMPLIC 06/20/2018 PIERRE DE LA VEGA MD Ot E66.01 MORBID (SEVERE) OBESITY DUE TO EXCESS CA 06/20/2018 PIERRE DE LA VEGA MD Ot E78.2 MIXED HYPERLIPIDEMIA 06/20/2018 PIERRE DE LA VEGA MD Ot E78.5 HYPERLIPIDEMIA, UNSPECIFIED 06/20/2018 PIERRE DE LA VEGA MD Ot F17.210 NICOTINE DEPENDENCE, CIGARETTES, UNCOMPL 06/20/2018 PIERRE DE LA VEGA MD Ot F31.9 BIPOLAR DISORDER, UNSPECIFIED 06/20/2018 PIERRE DE LA VEGA MD Ot I10 ESSENTIAL (PRIMARY) HYPERTENSION 06/20/2018 PIERRE DE LA VEGA MD Ot I25.10 ATHSCL HEART DISEASE OF [place] CORONARY 06/20/2018 PIERRE DE LA VEGA MD Ot J44.9 CHRONIC OBSTRUCTIVE PULMONARY DISEASE, U 06/20/2018 PIERRE DE LA VEGA MD Ot K21.9 GASTRO-ESOPHAGEAL REFLUX DISEASE WITHOUT 06/20/2018 PIERRE DE LA VEGA MD Ot R07.89 OTHER CHEST PAIN 06/20/2018 PIERRE DE LA VEGA MD Ot R60.9 EDEMA, UNSPECIFIED 06/20/2018 PIERRE DE LA VEGA MD Ot Z68.43 BODY MASS INDEX (BMI) 50-59.9, ADULT 06/20/2018 PIERRE DE LA VEGA MD Ot Z86.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 06/21/2018 PRIYA ROUSE APRN Ot E03.9 HYPOTHYROIDISM, UNSPECIFIED 06/21/2018 PRIYA ROUSE APRN Ot E11.9 TYPE 2 DIABETES MELLITUS WITHOUT COMPLIC 06/21/2018 PRIYA ROUSE APRN Ot E78.00 PURE HYPERCHOLESTEROLEMIA, UNSPECIFIED 06/21/2018 PRIYA ROUSE APRN Ot F31.9 BIPOLAR DISORDER, UNSPECIFIED 06/21/2018 PRIYA ROUSE APRN Ot F41.9 ANXIETY DISORDER, UNSPECIFIED 06/21/2018 PRIYA ROUSE APRN Ot G43.909 MIGRAINE, UNSP, NOT INTRACTABLE, WITHOUT 06/21/2018 PRIYA ROUSE APRN Ot I10 ESSENTIAL (PRIMARY) HYPERTENSION 06/21/2018 PRIYA ROUSE APRN Ot K21.9 GASTRO-ESOPHAGEAL REFLUX DISEASE WITHOUT 06/21/2018 PRIYA ROUSE APRN Ot R07.9 CHEST PAIN, UNSPECIFIED 06/21/2018 PRIYA ROUSE APRN Ot Z77.22 CNTCT W AND EXPSR TO ENVIRON TOBACCO SMO 06/21/2018 PRIYA ROUSE APRN Ot 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 06/21/2018 PRIYA ROUSE APRN Ot Z86.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 06/21/2018 PRIYA ROUSE APRN Ot Z87.09 PERSONAL HISTORY OF OTHER DISEASES OF TH 06/21/2018 PRIYA ROUSE APRN Ot Z88.0 ALLERGY STATUS TO PENICILLIN 06/21/2018 PRIYA ROUSE APRN Ot Z88.1 ALLERGY STATUS TO OTHER ANTIBIOTIC AGENT 06/21/2018 PRIYA ROUSE APRN Ot Z88.2 ALLERGY STATUS TO SULFONAMIDES STATUS 06/21/2018 PRIYA ROUSE APRN Ot Z88.5 ALLERGY STATUS TO NARCOTIC AGENT STATUS 06/21/2018 PRIYA ROUSE APRN Ot Z88.6 ALLERGY STATUS TO ANALGESIC AGENT STATUS 06/21/2018 PRIYA ROUSE APRN Ot Z88.8 ALLERGY STATUS TO OTH DRUG/MEDS/BIOL SUB 06/21/2018 PRIYA ROUSE APRN Ot Z90.710 ACQUIRED ABSENCE OF BOTH CERVIX AND UTER 06/21/2018 PRIYA ROUSE APRN Ot Z91.041 RADIOGRAPHIC DYE ALLERGY STATUS 06/21/2018 PRIYA ROUSE APRN Ot Z98.51 TUBAL LIGATION STATUS 06/21/2018 PRIYA ROUSE APRN Ot Z98.890 OTHER SPECIFIED POSTPROCEDURAL STATES 06/24/2018 PRIYA ROUSE APRN Ot E03.9 HYPOTHYROIDISM, UNSPECIFIED 06/24/2018 PRIYA ROUSE APRN Ot E11.9 TYPE 2 DIABETES MELLITUS WITHOUT COMPLIC 06/24/2018 PRIYA ROUSE APRN Ot E78.00 PURE HYPERCHOLESTEROLEMIA, UNSPECIFIED 06/24/2018 PRIYA ROUSE APRN Ot F31.9 BIPOLAR DISORDER, UNSPECIFIED 06/24/2018 PRIYA ROUSE APRN Ot F41.9 ANXIETY DISORDER, UNSPECIFIED 06/24/2018 PRIYA ROUSE APRN Ot G43.909 MIGRAINE, UNSP, NOT INTRACTABLE, WITHOUT 06/24/2018 ROUSE, PETER J FOOD SAFETY COORDINATOR Ot I10 ESSENTIAL (PRIMARY) HYPERTENSION 06/24/2018 PRIYA ROUSE APRN Ot K21.9 GASTRO-ESOPHAGEAL REFLUX DISEASE WITHOUT 06/24/2018 PRIYA ROUSE APRN Ot R07.9 CHEST PAIN, UNSPECIFIED 06/24/2018 PRIYA ROUSE APRN Ot Z77.22 CNTCT W AND EXPSR TO ENVIRON TOBACCO SMO 06/24/2018 PRIYA ROUSE APRN Ot 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 06/24/2018 PRIYA ROUSE APRN Ot Z86.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 06/24/2018 PRIYA ROUSE APRN Ot Z87.09 PERSONAL HISTORY OF OTHER DISEASES OF TH 06/24/2018 PRIYA ROUSE APRN Ot Z88.0 ALLERGY STATUS TO PENICILLIN 06/24/2018 PRIYA ROUSE APRN Ot Z88.1 ALLERGY STATUS TO OTHER ANTIBIOTIC AGENT 06/24/2018 PRIYA ROUSE APRN Ot Z88.2 ALLERGY STATUS TO SULFONAMIDES STATUS 06/24/2018 PRIYA ROUSE APRN Ot Z88.5 ALLERGY STATUS TO NARCOTIC AGENT STATUS 06/24/2018 PRIYA ROUSE APRN Ot Z88.6 ALLERGY STATUS TO ANALGESIC AGENT STATUS 06/24/2018 PRIYA ROUSE APRN Ot Z88.8 ALLERGY STATUS TO OTH DRUG/MEDS/BIOL SUB 06/24/2018 PRIYA ROUSE APRN Ot Z90.710 ACQUIRED ABSENCE OF BOTH CERVIX AND UTER 06/24/2018 PRIYA ROUSE APRN Ot Z91.041 RADIOGRAPHIC DYE ALLERGY STATUS 06/24/2018 PRIYA ROUSE APRN Ot Z98.51 TUBAL LIGATION STATUS 06/24/2018 PRIYA ROUSE APRN Ot Z98.890 OTHER SPECIFIED POSTPROCEDURAL STATES 06/29/2018 PERFECTO MARVIN Ot E03.9 HYPOTHYROIDISM, UNSPECIFIED 06/29/2018 PERFECTO MARVIN Ot E11.9 TYPE 2 DIABETES MELLITUS WITHOUT COMPLIC 06/29/2018 PERFECTO MARVIN Ot E78.00 PURE HYPERCHOLESTEROLEMIA, UNSPECIFIED 06/29/2018 PERFECTO MARVIN Ot F17.210 NICOTINE DEPENDENCE, CIGARETTES, UNCOMPL 06/29/2018 PERFECTO MARVIN Ot F32.9 MAJOR DEPRESSIVE DISORDER, SINGLE EPISOD 06/29/2018 PERFECTO MARVIN Ot F41.9 ANXIETY DISORDER, UNSPECIFIED 06/29/2018 PERFECTO MARVIN Ot G43.909 MIGRAINE, UNSP, NOT INTRACTABLE, WITHOUT 06/29/2018 PERFECTO MARVIN Ot I10 ESSENTIAL (PRIMARY) HYPERTENSION 06/29/2018 PERFECTO MARVIN Ot K21.9 GASTRO-ESOPHAGEAL REFLUX DISEASE WITHOUT 06/29/2018 PERFECTO MARVIN Ot M54.5 LOW BACK PAIN 06/29/2018 PERFECTO MARVIN Ot S09.90XA UNSPECIFIED INJURY OF HEAD, INITIAL ENCO 06/29/2018 PERFECTO MARVIN Ot W07.XXXA FALL FROM CHAIR, INITIAL ENCOUNTER 06/29/2018 PERFCETO MARVIN Ot Z79.01 MCC (CURRENT) USE OF ANTICOAGULANT 06/29/2018 PERFECTO MARVIN Ot Z86.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 06/29/2018 PERFECTO MARVIN Ot Z88.0 ALLERGY STATUS TO PENICILLIN 06/29/2018 PERFECTO MARVIN Ot Z88.1 ALLERGY STATUS TO OTHER ANTIBIOTIC AGENT 06/29/2018 PERFECTO MARVIN Ot Z88.2 ALLERGY STATUS TO SULFONAMIDES STATUS 06/29/2018 PERFECTO MARVIN Ot Z88.4 ALLERGY STATUS TO ANESTHETIC AGENT STATU 06/29/2018 PERFECTO MARVIN Ot Z88.5 ALLERGY STATUS TO NARCOTIC AGENT STATUS 06/29/2018 PERFECTO MARVIN Ot Z88.8 ALLERGY STATUS TO OTH DRUG/MEDS/BIOL SUB 06/29/2018 PERFECTO MARVIN Ot Z90.710 ACQUIRED ABSENCE OF BOTH CERVIX AND UTER 06/29/2018 PERFECTO MARVIN Ot Z91.041 RADIOGRAPHIC DYE ALLERGY STATUS 06/29/2018 PERFECTO MARVIN Ot Z98.51 TUBAL LIGATION STATUS 07/01/2018 PRIYA ROUSE APRN Ot E03.9 HYPOTHYROIDISM, UNSPECIFIED 07/01/2018 PRIYA ROUSE FOOD SAFETY COORDINATOR Ot E11.9 TYPE 2 DIABETES MELLITUS WITHOUT COMPLIC 07/01/2018 PRIYA ROUSE APRN Ot E78.00 PURE HYPERCHOLESTEROLEMIA, UNSPECIFIED 07/01/2018 PRIYA ROUSE APRN Ot F31.9 BIPOLAR DISORDER, UNSPECIFIED 07/01/2018 PRIYA ROUSE APRN Ot F41.9 ANXIETY DISORDER, UNSPECIFIED 07/01/2018 PRIYA ROUSE APRN Ot G43.909 MIGRAINE, UNSP, NOT INTRACTABLE, WITHOUT 07/01/2018 PRIYA ROUSE APRN Ot I10 ESSENTIAL (PRIMARY) HYPERTENSION 07/01/2018 PRIYA ROUSE APRN Ot J42 UNSPECIFIED CHRONIC BRONCHITIS 07/01/2018 PRIYA ROUSE APRN Ot K21.9 GASTRO-ESOPHAGEAL REFLUX DISEASE WITHOUT 07/01/2018 PRIYA ROUSE APRN Ot N39.0 URINARY TRACT INFECTION, SITE NOT SPECIF 07/01/2018 PRIYA ROUSE APRN Ot R07.89 OTHER CHEST PAIN 07/01/2018 PRIYA ROUSE APRN Ot Z86.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 07/01/2018 PRIYA ROUSE APRN Ot Z88.0 ALLERGY STATUS TO PENICILLIN 07/01/2018 PRIYA ROUSE APRN Ot Z88.1 ALLERGY STATUS TO OTHER ANTIBIOTIC AGENT 07/01/2018 PRIYA ROUSE APRN Ot Z88.2 ALLERGY STATUS TO SULFONAMIDES STATUS 07/01/2018 PRIYA ROUSE APRN Ot Z88.5 ALLERGY STATUS TO NARCOTIC AGENT STATUS 07/01/2018 PRIYA ROUSE APRN Ot Z88.6 ALLERGY STATUS TO ANALGESIC AGENT STATUS 07/01/2018 PRIYA ROUSE APRN Ot Z90.710 ACQUIRED ABSENCE OF BOTH CERVIX AND UTER 07/01/2018 PRIYA ROUSE APRN Ot Z91.041 RADIOGRAPHIC DYE ALLERGY STATUS 07/01/2018 PRIYA ROUSE APRN Ot Z98.51 TUBAL LIGATION STATUS 07/02/2018 PERFECTO MARVIN Ot E03.9 HYPOTHYROIDISM, UNSPECIFIED 07/02/2018 PERFECTO MARVIN Ot E11.9 TYPE 2 DIABETES MELLITUS WITHOUT COMPLIC 07/02/2018 PERFECTO MARVIN Ot E78.00 PURE HYPERCHOLESTEROLEMIA, UNSPECIFIED 07/02/2018 PERFECTO MARVIN Ot F17.210 NICOTINE DEPENDENCE, CIGARETTES, UNCOMPL 07/02/2018 PERFECTO MARVIN Ot F32.9 MAJOR DEPRESSIVE DISORDER, SINGLE EPISOD 07/02/2018 PERFECTO MARVIN Ot F41.9 ANXIETY DISORDER, UNSPECIFIED 07/02/2018 PERFECTO MARVIN Ot G43.909 MIGRAINE, UNSP, NOT INTRACTABLE, WITHOUT 07/02/2018 PERFECTO MARVIN Ot I10 ESSENTIAL (PRIMARY) HYPERTENSION 07/02/2018 PERFECTO MARVIN Ot K21.9 GASTRO-ESOPHAGEAL REFLUX DISEASE WITHOUT 07/02/2018 PERFECTO MARVIN Ot M54.5 LOW BACK PAIN 07/02/2018 PERFECTO MARVIN Ot S09.90XA UNSPECIFIED INJURY OF HEAD, INITIAL ENCO 07/02/2018 PERFECTO MARVIN Ot W07.XXXA FALL FROM CHAIR, INITIAL ENCOUNTER 07/02/2018 PERFECTO MARVIN Ot 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 07/02/2018 PERFECTO MARVIN Ot Z86.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 07/02/2018 PERFECTO MARVIN Ot Z88.0 ALLERGY STATUS TO PENICILLIN 07/02/2018 PERFECTO MARVIN Ot Z88.1 ALLERGY STATUS TO OTHER ANTIBIOTIC AGENT 07/02/2018 PERFECTO MARVIN Ot Z88.2 ALLERGY STATUS TO SULFONAMIDES STATUS 07/02/2018 PERFECTO MARVIN Ot Z88.4 ALLERGY STATUS TO ANESTHETIC AGENT STATU 07/02/2018 PERFECTO MARVIN Ot Z88.5 ALLERGY STATUS TO NARCOTIC AGENT STATUS 07/02/2018 PERFECTO MARVIN Ot Z88.8 ALLERGY STATUS TO OTH DRUG/MEDS/BIOL SUB 07/02/2018 PERFECTO MARVIN Ot Z90.710 ACQUIRED ABSENCE OF BOTH CERVIX AND UTER 07/02/2018 PERFECTO MARVIN Ot Z91.041 RADIOGRAPHIC DYE ALLERGY STATUS 07/02/2018 PERFECTO MARVIN Ot Z98.51 TUBAL LIGATION STATUS 07/08/2018 PIERRE DE LA VEGA MD Ot E11.9 TYPE 2 DIABETES MELLITUS WITHOUT COMPLIC 07/08/2018 PIERRE DE LA VEGA MD Ot E78.2 MIXED HYPERLIPIDEMIA 07/08/2018 PIERRE DE LA VEGA MD Ot I10 ESSENTIAL (PRIMARY) HYPERTENSION 07/08/2018 PIERRE DE LA VEGA MD Ot Z72.0 TOBACCO USE Procedures Code Description [place] [address] ROUTINE VENIPUNCTURE ELISEO KELLY 04/03/2016 40519 COMPREHEN METABOLIC PANEL ELISEO KELLY 04/03/2016 17467 ASSAY OF FREE THYROXINE ELISEO KELLY 04/03/2016 95694 ASSAY THYROID STIM HORMONE ELISEO KELLY 04/03/2016 78798 COMPLETE CBC W/AUTO DIFF WBC ELISEO KELLY 04/03/2016 78539 ROUTINE VENIPUNCTURE ELISEO KELLY 06/25/2016 65055 PROTHROMBIN TIME ELISEO KELLY 06/25/2016 53947 ROUTINE VENIPUNCTURE ELISEO KELLY 07/13/2016 62634 METABOLIC PANEL TOTAL CA ELISEO KELLY 07/13/2016 46854 ROUTINE VENIPUNCTURE ZECHARIAHISABELLA STERLING, VALERY D 03/06/2018 79634 COMPREHEN METABOLIC PANEL ZECHARIAH STERLING, VALERY D 03/06/2018 86562 LIPID PANEL ZECHARIAHISABELLA STERLING, VALERY D 03/06/2018 75170 ASSAY CARBAMAZEPINE TOTAL ZECHARIAHISABELLA STERLING, VALERY D 03/06/2018 16278 URINALYSIS AUTO W/SCOPE ZECHARIAHISABELLA STERLING, VALERY D 03/06/2018 65512 ASSAY OF TOTAL THYROXINE ZECHARIAHISABELLA STERLING, VALERY D 03/06/2018 18690 ASSAY THYROID STIM HORMONE ZECHARIAHISABELLA STERLING, VALERY D 03/06/2018 48965 COMPLETE CBC W/AUTO DIFF WBC ZECHARIAH STERLING LACEY D 03/06/2018 88702 URINE CULTURE/COLONY COUNT ZECHARIAHISABELLA STERLING, VALERY D 03/06/2018 49512 ELECTROCARDIOGRAM TRACING ZECHARIAH STERLING, VALERY D 03/06/2018 24875 EMERGENCY DEPT VISIT VALERY BOTELLO D 03/06/2018 Results Test Result Range COMPLETE BLOOD COUNT - 04/04/16 07:19 Platelet 250 10^3u 142-424 MPV 11.4 FL 9.4-12.4 [place] # 0.69 10^3u 0.0-1.0 RBC 4.83 10^6u 4.04-6.13 [place] % 5.7 % 0-12 RDW 17.0 % 11.6-14.8 Neut # 8.16 10^3u 2.0-6.9 Neut % 67.6 % 37-80 WBC 12.07 10^3u 4.60-10.20 MCV 94.4 FL 80.0-97.0 Baso # 0.02 10^3u 0.0-0.1 Baso % 0.2 % 0-2 Eos # 0.23 10^3u 0-0.7 Eos % 1.9 % 0-7 Lymph % 24.6 % 10-50 MCHC 30.9 G/DL 31.8-35.4 MCH 29.2 PG 27.0-31.2 Lymph # 2.97 10^3u 0.6-3.4 HGB 14.1 G/DL 12.2-18.1 HCT 45.6 % 37.7-53.7 TSH - 04/04/16 07:23 TSH 3.30 UIUML 0.35-4.94 Free T4 - 04/04/16 07:23 Free T4 0.96 NG/DL 0.70-1.48 CMP - 04/04/16 07:35 Osmo Calculated 275 MOSM 261-280 Sodium 142 MMOLL 136-145 T. Protein 7.1 G/DL 6.4-8.3 Potassium 4.3 MMOLL 3.5-5.1 T Bili 0.2 MG/DL 0.2-1.2 Calcium 9.1 MG/DL 8.4-10.2 BUN 15 MG/DL 7-26 Chloride 109 MMOLL 98-107 AST 13 U/L 5-34 ALT 18 U/L 0-55 Albumin 3.2 G/DL 3.5-5.0 A/G Ratio 0.8 RATIO 1.2-2.2 Bun/Creat 19 RATIO 7-25 Alk Phos 146 U/L 40-150 CO2 23 MMOLL 22-29 Glucose 91 MG/DL 70-99 Globulin 3.9 G/DL 2.4-3.5 Creatinine 0.8 MG/DL 0.6-1.3 Protime - 06/25/16 14:32 INR 3.1 Protime 36.3 SEC 9.6-11.9 BMP - 07/13/16 18:04 Osmo Calculated 270 MOSM 261-280 Sodium 140 MMOLL 136-145 Potassium 3.8 MMOLL 3.5-5.1 Calcium 8.8 MG/DL 8.4-10.2 BUN 11 MG/DL 7-26 Chloride 112 MMOLL 98-107 Anion GAP 7 MMOLL 5-16 Bun/Creat 16 RATIO 7-25 CO2 21 MMOLL 22-29 Glucose 96 MG/DL 70-99 Creatinine 0.7 MG/DL 0.6-1.3 Complete blood count (CBC) with automated white blood cell (WBC) differential - 05/02/18 20:18 Blood leukocytes automated count (number/volume) 10.8 10*3/uL 4.3-11.0 Blood erythrocytes automated count (number/volume) 4.62 10*6/uL 4.35-5.85 Venous blood hemoglobin measurement (mass/volume) 12.2 g/dL 11.5-16.0 Blood hematocrit (volume fraction) 39 % 35-52 Automated erythrocyte mean corpuscular volume 84 [foz_us] 80-99 Automated erythrocyte mean corpuscular hemoglobin (mass per erythrocyte) 26 pg 25-34 Automated erythrocyte mean corpuscular hemoglobin concentration measurement ( mass/volume) 31 g/dL 32-36 Automated erythrocyte distribution width ratio 18.7 % 10.0-14.5 Automated blood platelet count (count/volume) 249 10*3/uL 130-400 Automated blood platelet mean volume measurement 9.7 [foz_us] 7.4-10.4 Automated blood neutrophils/100 leukocytes 67 % 42-75 Automated blood lymphocytes/100 leukocytes 23 % 12-44 Blood monocytes/100 leukocytes 7 % 0-12 Automated blood eosinophils/100 leukocytes 3 % 0-10 Automated blood basophils/100 leukocytes 0 % 0-10 Blood neutrophils automated count (number/volume) 7.3 10*3 1.8-7.8 Blood lymphocytes automated count (number/volume) 2.5 10*3 1.0-4.0 Blood monocytes automated count (number/volume) 0.8 10*3 0.0-1.0 Automated eosinophil count 0.3 10*3/uL 0.0-0.3 Automated blood basophil count (count/volume) 0.0 10*3/uL 0.0-0.1 PT panel in platelet poor plasma by coagulation assay - 05/02/18 20:18 Prothrombin time (PT) in platelet poor plasma by coagulation assay 13.3 s 12.2-14.7 INR in platelet poor plasma or blood by coagulation assay 1.0 0.8-1.4 Activated partial thromboplastin time (aPTT) in platelet poor plasma bycoagulation assay - 05/02/18 20:18 Activated partial thromboplastin time (aPTT) in platelet poor plasma bycoagulation assay 28 s 24-35 Fibrin D-dimer FEU measurement in platelet poor plasma (mass/volume) - 20:18 Fibrin D-dimer FEU measurement in platelet poor plasma (mass/volume) 0.69 ug/mL 0.00-0.49 Comprehensive metabolic panel - 05/02/18 20:18 Serum or plasma sodium measurement (moles/volume) 142 mmol/L 135-145 Serum or plasma potassium measurement (moles/volume) 3.8 mmol/L 3.6-5.0 Serum or plasma chloride measurement (moles/volume) 109 mmol/L 98-107 Carbon dioxide 24 mmol/L 21-32 Serum or plasma anion gap determination (moles/volume) 9 mmol/L 5-14 Serum or plasma urea nitrogen measurement (mass/volume) 9 mg/dL 7-18 Serum or plasma creatinine measurement (mass/volume) 0.74 mg/dL 0.60-1.30 Serum or plasma urea nitrogen/creatinine mass ratio 12 NRG Serum or plasma creatinine measurement with calculation of estimated glomerular filtration rate > NRG Serum or plasma glucose measurement (mass/volume) 120 mg/dL 70-105 Serum or plasma calcium measurement (mass/volume) 8.9 mg/dL 8.5-10.1 Serum or plasma total bilirubin measurement (mass/volume) 0.3 mg/dL 0.1-1.0 Serum or plasma alkaline phosphatase measurement (enzymatic activity/volume) 141 U/L 40-136 Serum or plasma aspartate aminotransferase measurement (enzymatic activity/ volume) 29 U/L 5-34 Serum or plasma alanine aminotransferase measurement (enzymatic activity/volume ) 25 U/L 0-55 Serum or plasma protein measurement (mass/volume) 7.1 g/dL 6.4-8.2 Serum or plasma albumin measurement (mass/volume) 3.3 g/dL 3.2-4.5 CALCIUM CORRECTED 9.5 mg/dL 8.5-10.1 Magnesium - 05/02/18 20:18 Magnesium 2.2 mg/dL 1.8-2.4 Serum or plasma troponin i.cardiac measurement (mass/volume) - 05/02/18 20:18 Serum or plasma troponin i.cardiac measurement (mass/volume) < ng/ mL <0.30 Myoglobin, serum - 05/02/18 20:18 Myoglobin, serum 26.2 ng/mL 10.0-92.0 Serum or plasma troponin i.cardiac measurement (mass/volume) - 05/02/18 22:19 Serum or plasma troponin i.cardiac measurement (mass/volume) < ng/ mL <0.30 Complete blood count (CBC) with automated white blood cell (WBC) differential - 05/10/18 19:10 Blood leukocytes automated count (number/volume) 9.9 10*3/uL 4.3-11.0 Blood erythrocytes automated count (number/volume) 4.42 10*6/uL 4.35-5.85 Venous blood hemoglobin measurement (mass/volume) 11.8 g/dL 11.5-16.0 Blood hematocrit (volume fraction) 38 % 35-52 Automated erythrocyte mean corpuscular volume 85 [foz_us] 80-99 Automated erythrocyte mean corpuscular hemoglobin (mass per erythrocyte) 27 pg 25-34 Automated erythrocyte mean corpuscular hemoglobin concentration measurement ( mass/volume) 31 g/dL 32-36 Automated erythrocyte distribution width ratio 18.6 % 10.0-14.5 Automated blood platelet count (count/volume) 236 10*3/uL 130-400 Automated blood platelet mean volume measurement 9.7 [foz_us] 7.4-10.4 Automated blood neutrophils/100 leukocytes 61 % 42-75 Automated blood lymphocytes/100 leukocytes 26 % 12-44 Blood monocytes/100 leukocytes 9 % 0-12 Automated blood eosinophils/100 leukocytes 4 % 0-10 Automated blood basophils/100 leukocytes 1 % 0-10 Blood neutrophils automated count (number/volume) 6.0 10*3 1.8-7.8 Blood lymphocytes automated count (number/volume) 2.5 10*3 1.0-4.0 Blood monocytes automated count (number/volume) 0.9 10*3 0.0-1.0 Automated eosinophil count 0.4 10*3/uL 0.0-0.3 Automated blood basophil count (count/volume) 0.1 10*3/uL 0.0-0.1 Comprehensive metabolic panel - 05/10/18 19:10 Serum or plasma sodium measurement (moles/volume) 141 mmol/L 135-145 Serum or plasma potassium measurement (moles/volume) 3.8 mmol/L 3.6-5.0 Serum or plasma chloride measurement (moles/volume) 111 mmol/L 98-107 Carbon dioxide 20 mmol/L 21-32 Serum or plasma anion gap determination (moles/volume) 10 mmol/L 5-14 Serum or plasma urea nitrogen measurement (mass/volume) 11 mg/dL 7-18 Serum or plasma creatinine measurement (mass/volume) 0.69 mg/dL 0.60-1.30 Serum or plasma urea nitrogen/creatinine mass ratio 16 NRG Serum or plasma creatinine measurement with calculation of estimated glomerular filtration rate > NRG Serum or plasma glucose measurement (mass/volume) 161 mg/dL 70-105 Serum or plasma calcium measurement (mass/volume) 8.7 mg/dL 8.5-10.1 Serum or plasma total bilirubin measurement (mass/volume) 0.2 mg/dL 0.1-1.0 Serum or plasma alkaline phosphatase measurement (enzymatic activity/volume) 126 U/L 40-136 Serum or plasma aspartate aminotransferase measurement (enzymatic activity/ volume) 20 U/L 5-34 Serum or plasma alanine aminotransferase measurement (enzymatic activity/volume ) 21 U/L 0-55 Serum or plasma protein measurement (mass/volume) 6.7 g/dL 6.4-8.2 Serum or plasma albumin measurement (mass/volume) 3.2 g/dL 3.2-4.5 CALCIUM CORRECTED 9.3 mg/dL 8.5-10.1 Complete urinalysis with reflex to culture - 05/10/18 20:38 Urine color determination YELLOW NRG Urine clarity determination CLEAR NRG Urine pH measurement by test strip 7 5-9 Specific gravity of urine by test strip 1.010 1.016- 1.022 Urine protein assay by test strip, semi-quantitative NEGATIVE NEGATIVE Urine glucose detection by automated test strip NEGATIVE NEGATIVE Erythrocytes detection in urine sediment by light microscopy NEGATIVE NEGATIVE Urine ketones detection by automated test strip NEGATIVE NEGATIVE Urine nitrite detection by test strip NEGATIVE NEGATIVE Urine total bilirubin detection by test strip NEGATIVE NEGATIVE Urine urobilinogen measurement by automated test strip (mass/volume) 1 mg/dL NORMAL Urine leukocyte esterase detection by dipstick NEGATIVE NEGATIVE Automated urine sediment erythrocyte count by microscopy (number/high power field) NONE NRG Automated urine sediment leukocyte count by microscopy (number/high power field ) NONE NRG Bacteria detection in urine sediment by light microscopy NONE NRG Squamous epithelial cells detection in urine sediment by light microscopy 0-2 NRG Crystals detection in urine sediment by light microscopy NONE NRG Casts detection in urine sediment by light microscopy NONE NRG Mucus detection in urine sediment by light microscopy NEGATIVE NRG Complete urinalysis with reflex to culture NO NRG Complete blood count (CBC) with automated white blood cell (WBC) differential - 05/12/18 18:50 Blood leukocytes automated count (number/volume) 10.6 10*3/uL 4.3-11.0 Blood erythrocytes automated count (number/volume) 4.65 10*6/uL 4.35-5.85 Venous blood hemoglobin measurement (mass/volume) 12.3 g/dL 11.5-16.0 Blood hematocrit (volume fraction) 40 % 35-52 Automated erythrocyte mean corpuscular volume 85 [foz_us] 80-99 Automated erythrocyte mean corpuscular hemoglobin (mass per erythrocyte) 27 pg 25-34 Automated erythrocyte mean corpuscular hemoglobin concentration measurement ( mass/volume) 31 g/dL 32-36 Automated erythrocyte distribution width ratio 18.7 % 10.0-14.5 Automated blood platelet count (count/volume) 248 10*3/uL 130-400 Automated blood platelet mean volume measurement 9.9 [foz_us] 7.4-10.4 Automated blood neutrophils/100 leukocytes 62 % 42-75 Automated blood lymphocytes/100 leukocytes 26 % 12-44 Blood monocytes/100 leukocytes 8 % 0-12 Automated blood eosinophils/100 leukocytes 3 % 0-10 Automated blood basophils/100 leukocytes 0 % 0-10 Blood neutrophils automated count (number/volume) 6.6 10*3 1.8-7.8 Blood lymphocytes automated count (number/volume) 2.7 10*3 1.0-4.0 Blood monocytes automated count (number/volume) 0.9 10*3 0.0-1.0 Automated eosinophil count 0.3 10*3/uL 0.0-0.3 Automated blood basophil count (count/volume) 0.0 10*3/uL 0.0-0.1 PT panel in platelet poor plasma by coagulation assay - 05/12/18 18:50 Prothrombin time (PT) in platelet poor plasma by coagulation assay 13.6 s 12.2-14.7 INR in platelet poor plasma or blood by coagulation assay 1.0 0.8-1.4 Activated partial thromboplastin time (aPTT) in platelet poor plasma bycoagulation assay - 05/12/18 18:50 Activated partial thromboplastin time (aPTT) in platelet poor plasma bycoagulation assay 31 s 24-35 Comprehensive metabolic panel - 05/12/18 18:50 Serum or plasma sodium measurement (moles/volume) 142 mmol/L 135-145 Serum or plasma potassium measurement (moles/volume) 4.4 mmol/L 3.6-5.0 Serum or plasma chloride measurement (moles/volume) 113 mmol/L 98-107 Carbon dioxide 21 mmol/L 21-32 Serum or plasma anion gap determination (moles/volume) 8 mmol/L 5-14 Serum or plasma urea nitrogen measurement (mass/volume) 7 mg/dL 7-18 Serum or plasma creatinine measurement (mass/volume) 0.72 mg/dL 0.60-1.30 Serum or plasma urea nitrogen/creatinine mass ratio 10 NRG Serum or plasma creatinine measurement with calculation of estimated glomerular filtration rate > NRG Serum or plasma glucose measurement (mass/volume) 193 mg/dL 70-105 Serum or plasma calcium measurement (mass/volume) 8.7 mg/dL 8.5-10.1 Serum or plasma total bilirubin measurement (mass/volume) 0.2 mg/dL 0.1-1.0 Serum or plasma alkaline phosphatase measurement (enzymatic activity/volume) 131 U/L 40-136 Serum or plasma aspartate aminotransferase measurement (enzymatic activity/ volume) 26 U/L 5-34 Serum or plasma alanine aminotransferase measurement (enzymatic activity/volume ) 22 U/L 0-55 Serum or plasma protein measurement (mass/volume) 7.4 g/dL 6.4-8.2 Serum or plasma albumin measurement (mass/volume) 3.4 g/dL 3.2-4.5 CALCIUM CORRECTED 9.2 mg/dL 8.5-10.1 Magnesium - 05/12/18 18:50 Magnesium 2.4 mg/dL 1.8-2.4 Myoglobin, serum - 05/12/18 18:50 Myoglobin, serum 23.2 ng/mL 10.0-92.0 Serum or plasma troponin i.cardiac measurement (mass/volume) - 05/12/18 18:50 Serum or plasma troponin i.cardiac measurement (mass/volume) < ng/ mL <0.30 Lipase - 05/12/18 18:50 Lipase 43 U/L 8-78 Myoglobin, serum - 05/12/18 18:50 Myoglobin, serum 23.2 ng/mL 10.0-92.0 Lipase - 18 18:50 Lipase 43 U/L 8-78 Serum or plasma lithium measurement (moles/volume) - 05/12/18 18:50 BNP level < pg/mL <100.0 Serum or plasma troponin i.cardiac measurement (mass/volume) - 05/12/18 20:56 Serum or plasma troponin i.cardiac measurement (mass/volume) < ng/ mL <0.30 Complete blood count (CBC) with automated white blood cell (WBC) differential - 05/23/18 18:37 Blood leukocytes automated count (number/volume) 11.1 10*3/uL 4.3-11.0 Blood erythrocytes automated count (number/volume) 4.55 10*6/uL 4.35-5.85 Venous blood hemoglobin measurement (mass/volume) 12.3 g/dL 11.5-16.0 Blood hematocrit (volume fraction) 39 % 35-52 Automated erythrocyte mean corpuscular volume 85 [foz_us] 80-99 Automated erythrocyte mean corpuscular hemoglobin (mass per erythrocyte) 27 pg 25-34 Automated erythrocyte mean corpuscular hemoglobin concentration measurement ( mass/volume) 32 g/dL 32-36 Automated erythrocyte distribution width ratio 18.7 % 10.0-14.5 Automated blood platelet count (count/volume) 261 10*3/uL 130-400 Automated blood platelet mean volume measurement 10.2 [foz_us] 7.4-10.4 Automated blood neutrophils/100 leukocytes 61 % 42-75 Automated blood lymphocytes/100 leukocytes 27 % 12-44 Blood monocytes/100 leukocytes 9 % 0-12 Automated blood eosinophils/100 leukocytes 3 % 0-10 Automated blood basophils/100 leukocytes 0 % 0-10 Blood neutrophils automated count (number/volume) 6.8 10*3 1.8-7.8 Blood lymphocytes automated count (number/volume) 3.0 10*3 1.0-4.0 Blood monocytes automated count (number/volume) 1.0 10*3 0.0-1.0 Automated eosinophil count 0.3 10*3/uL 0.0-0.3 Automated blood basophil count (count/volume) 0.1 10*3/uL 0.0-0.1 Comprehensive metabolic panel - 05/23/18 18:37 Serum or plasma sodium measurement (moles/volume) 140 mmol/L 135-145 Serum or plasma potassium measurement (moles/volume) 3.8 mmol/L 3.6-5.0 Serum or plasma chloride measurement (moles/volume) 106 mmol/L 98-107 Carbon dioxide 26 mmol/L 21-32 Serum or plasma anion gap determination (moles/volume) 8 mmol/L 5-14 Serum or plasma urea nitrogen measurement (mass/volume) 10 mg/dL 7-18 Serum or plasma creatinine measurement (mass/volume) 0.78 mg/dL 0.60-1.30 Serum or plasma urea nitrogen/creatinine mass ratio 13 NRG Serum or plasma creatinine measurement with calculation of estimated glomerular filtration rate > NRG Serum or plasma glucose measurement (mass/volume) 98 mg/dL 70-105 Serum or plasma calcium measurement (mass/volume) 9.0 mg/dL 8.5-10.1 Serum or plasma total bilirubin measurement (mass/volume) 0.4 mg/dL 0.1-1.0 Serum or plasma alkaline phosphatase measurement (enzymatic activity/volume) 144 U/L 40-136 Serum or plasma aspartate aminotransferase measurement (enzymatic activity/ volume) 29 U/L 5-34 Serum or plasma alanine aminotransferase measurement (enzymatic activity/volume ) 27 U/L 0-55 Serum or plasma protein measurement (mass/volume) 7.7 g/dL 6.4-8.2 Serum or plasma albumin measurement (mass/volume) 3.6 g/dL 3.2-4.5 CALCIUM CORRECTED 9.3 mg/dL 8.5-10.1 Magnesium - 05/23/18 18:37 Magnesium 2.1 mg/dL 1.8-2.4 Serum or plasma troponin i.cardiac measurement (mass/volume) - 05/23/18 18:37 Serum or plasma troponin i.cardiac measurement (mass/volume) < ng/ mL <0.30 PT panel in platelet poor plasma by coagulation assay - 05/23/18 18:37 Prothrombin time (PT) in platelet poor plasma by coagulation assay 14.6 s 12.2-14.7 INR in platelet poor plasma or blood by coagulation assay 1.1 0.8-1.4 Activated partial thromboplastin time (aPTT) in platelet poor plasma bycoagulation assay - 05/23/18 18:37 Activated partial thromboplastin time (aPTT) in platelet poor plasma bycoagulation assay 32 s 24-35 Myoglobin, serum - 05/23/18 18:37 Myoglobin, serum 25.1 ng/mL 10.0-92.0 Serum or plasma lithium measurement (moles/volume) - 05/23/18 18:37 BNP level < pg/mL <100.0 Automated blood complete blood count (hemogram) panel - 06/18/18 11:21 Blood leukocytes automated count (number/volume) 9.4 10*3/uL 4.3-11.0 Blood erythrocytes automated count (number/volume) 4.76 10*6/uL 4.35-5.85 Venous blood hemoglobin measurement (mass/volume) 12.9 g/dL 11.5-16.0 Blood hematocrit (volume fraction) 41 % 35-52 Automated erythrocyte mean corpuscular volume 87 [foz_us] 80-99 Automated erythrocyte mean corpuscular hemoglobin (mass per erythrocyte) 27 pg 25-34 Automated erythrocyte mean corpuscular hemoglobin concentration measurement ( mass/volume) 31 g/dL 32-36 Automated erythrocyte distribution width ratio 18.7 % 10.0-14.5 Automated blood platelet count (count/volume) 277 10*3/uL 130-400 Automated blood platelet mean volume measurement 10.0 [foz_us] 7.4-10.4 PT panel in platelet poor plasma by coagulation assay - 06/18/18 11:21 Prothrombin time (PT) in platelet poor plasma by coagulation assay 14.6 s 12.2-14.7 INR in platelet poor plasma or blood by coagulation assay 1.1 0.8-1.4 Activated partial thromboplastin time (aPTT) in platelet poor plasma bycoagulation assay - 06/18/18 11:21 Activated partial thromboplastin time (aPTT) in platelet poor plasma bycoagulation assay 30 s 24-35 Comprehensive metabolic panel - 06/18/18 11:21 Serum or plasma sodium measurement (moles/volume) 142 mmol/L 135-145 Serum or plasma potassium measurement (moles/volume) 3.8 mmol/L 3.6-5.0 Serum or plasma chloride measurement (moles/volume) 107 mmol/L 98-107 Carbon dioxide 23 mmol/L 21-32 Serum or plasma anion gap determination (moles/volume) 12 mmol/L 5-14 Serum or plasma urea nitrogen measurement (mass/volume) 11 mg/dL 7-18 Serum or plasma creatinine measurement (mass/volume) 0.76 mg/dL 0.60-1.30 Serum or plasma urea nitrogen/creatinine mass ratio 14 NRG Serum or plasma creatinine measurement with calculation of estimated glomerular filtration rate > NRG Serum or plasma glucose measurement (mass/volume) 101 mg/dL 70-105 Serum or plasma calcium measurement (mass/volume) 9.5 mg/dL 8.5-10.1 Serum or plasma total bilirubin measurement (mass/volume) 0.4 mg/dL 0.1-1.0 Serum or plasma alkaline phosphatase measurement (enzymatic activity/volume) 154 U/L 40-136 Serum or plasma aspartate aminotransferase measurement (enzymatic activity/ volume) 26 U/L 5-34 Serum or plasma alanine aminotransferase measurement (enzymatic activity/volume ) 29 U/L 0-55 Serum or plasma protein measurement (mass/volume) 8.2 g/dL 6.4-8.2 Serum or plasma albumin measurement (mass/volume) 3.8 g/dL 3.2-4.5 CALCIUM CORRECTED 9.7 mg/dL 8.5-10.1 Lipid 1996 panel - 06/18/18 11:21 Serum or plasma triglyceride measurement (mass/volume) 148 mg/dL <150 Serum or plasma cholesterol measurement (mass/volume) 125 mg/dL < 200 Serum or plasma cholesterol in HDL measurement (mass/volume) 30 mg/ dL 40-60 Cholesterol in LDL [mass/volume] in serum or plasma by direct assay 78 mg/dL 1-129 Serum or plasma cholesterol in VLDL measurement (mass/volume) 30 mg/ dL 5-40 Methicillin resistant Staphylococcus aureus (MRSA) screening culture - 11:21 Methicillin resistant Staphylococcus aureus (MRSA) screening culture NEG NRG Serum or plasma lithium measurement (moles/volume) - 06/29/18 16:51 BNP level < pg/mL <100.0 Complete blood count (CBC) with automated white blood cell (WBC) differential - 06/29/18 16:59 Blood leukocytes automated count (number/volume) 10.8 10*3/uL 4.3-11.0 Blood erythrocytes automated count (number/volume) 4.26 10*6/uL 4.35-5.85 Venous blood hemoglobin measurement (mass/volume) 11.6 g/dL 11.5-16.0 Blood hematocrit (volume fraction) 38 % 35-52 Automated erythrocyte mean corpuscular volume 89 [foz_us] 80-99 Automated erythrocyte mean corpuscular hemoglobin (mass per erythrocyte) 27 pg 25-34 Automated erythrocyte mean corpuscular hemoglobin concentration measurement ( mass/volume) 31 g/dL 32-36 Automated erythrocyte distribution width ratio 18.0 % 10.0-14.5 Automated blood platelet count (count/volume) 228 10*3/uL 130-400 Automated blood platelet mean volume measurement 10.1 [foz_us] 7.4-10.4 Automated blood neutrophils/100 leukocytes 65 % 42-75 Automated blood lymphocytes/100 leukocytes 24 % 12-44 Blood monocytes/100 leukocytes 9 % 0-12 Automated blood eosinophils/100 leukocytes 2 % 0-10 Automated blood basophils/100 leukocytes 0 % 0-10 Blood neutrophils automated count (number/volume) 7.0 10*3 1.8-7.8 Blood lymphocytes automated count (number/volume) 2.6 10*3 1.0-4.0 Blood monocytes automated count (number/volume) 1.0 10*3 0.0-1.0 Automated eosinophil count 0.2 10*3/uL 0.0-0.3 Automated blood basophil count (count/volume) 0.0 10*3/uL 0.0-0.1 PT panel in platelet poor plasma by coagulation assay - 06/29/18 16:59 Prothrombin time (PT) in platelet poor plasma by coagulation assay 14.6 s 12.2-14.7 INR in platelet poor plasma or blood by coagulation assay 1.1 0.8-1.4 Activated partial thromboplastin time (aPTT) in platelet poor plasma bycoagulation assay - 06/29/18 16:59 Activated partial thromboplastin time (aPTT) in platelet poor plasma bycoagulation assay 27 s 24-35 Comprehensive metabolic panel - 06/29/18 16:59 Serum or plasma sodium measurement (moles/volume) 142 mmol/L 135-145 Serum or plasma potassium measurement (moles/volume) 3.8 mmol/L 3.6-5.0 Serum or plasma chloride measurement (moles/volume) 111 mmol/L 98-107 Carbon dioxide 21 mmol/L 21-32 Serum or plasma anion gap determination (moles/volume) 10 mmol/L 5-14 Serum or plasma urea nitrogen measurement (mass/volume) 10 mg/dL 7-18 Serum or plasma creatinine measurement (mass/volume) 0.74 mg/dL 0.60-1.30 Serum or plasma urea nitrogen/creatinine mass ratio 14 NRG Serum or plasma creatinine measurement with calculation of estimated glomerular filtration rate > NRG Serum or plasma glucose measurement (mass/volume) 156 mg/dL 70-105 Serum or plasma calcium measurement (mass/volume) 8.8 mg/dL 8.5-10.1 Serum or plasma total bilirubin measurement (mass/volume) 0.3 mg/dL 0.1-1.0 Serum or plasma alkaline phosphatase measurement (enzymatic activity/volume) 139 U/L 40-136 Serum or plasma aspartate aminotransferase measurement (enzymatic activity/ volume) 26 U/L 5-34 Serum or plasma alanine aminotransferase measurement (enzymatic activity/volume ) 23 U/L 0-55 Serum or plasma protein measurement (mass/volume) 6.9 g/dL 6.4-8.2 Serum or plasma albumin measurement (mass/volume) 3.3 g/dL 3.2-4.5 CALCIUM CORRECTED 9.4 mg/dL 8.5-10.1 Magnesium - 06/29/18 16:59 Magnesium 2.1 mg/dL 1.8-2.4 Serum or plasma troponin i.cardiac measurement (mass/volume) - 06/29/18 16:59 Serum or plasma troponin i.cardiac measurement (mass/volume) < ng/ mL <0.30 Myoglobin, serum - 06/29/18 16:59 Myoglobin, serum 29.6 ng/mL 10.0-92.0 Complete urinalysis with reflex to culture - 06/29/18 18:55 Urine color determination YELLOW NRG Urine clarity determination CLEAR NRG Urine pH measurement by test strip 7 5-9 Specific gravity of urine by test strip 1.005 1.016- 1.022 Urine protein assay by test strip, semi-quantitative 1+ NEGATIVE Urine glucose detection by automated test strip NEGATIVE NEGATIVE Erythrocytes detection in urine sediment by light microscopy 1+ NEGATIVE Urine ketones detection by automated test strip NEGATIVE NEGATIVE Urine nitrite detection by test strip NEGATIVE NEGATIVE Urine total bilirubin detection by test strip NEGATIVE NEGATIVE Urine urobilinogen measurement by automated test strip (mass/volume) 1 mg/dL NORMAL Urine leukocyte esterase detection by dipstick 2+ NEGATIVE Automated urine sediment erythrocyte count by microscopy (number/high power field) [HPF] NRG Automated urine sediment leukocyte count by microscopy (number/high power field ) [HPF] NRG Bacteria detection in urine sediment by light microscopy TRACE NRG Squamous epithelial cells detection in urine sediment by light microscopy 0-2 NRG Crystals detection in urine sediment by light microscopy NONE NRG Casts detection in urine sediment by light microscopy NONE NRG Mucus detection in urine sediment by light microscopy NEGATIVE NRG Complete urinalysis with reflex to culture YES NRG Bacterial urine culture - 06/29/18 18:55 Bacterial urine culture [id number] NRG COLONY COUNT 50,000 CFU/ML NRG FTX;REPORTABLE ID REPORTED 06/30/18 17:05 NRG FREE TEXT ENTRY 2 SENSITIVITY REPORTED 07/01/18 14:05 NRG RML Sensitivity Panel - 06/29/18 18:55 Gentamicin susceptibility test by minimum inhibitory concentration < = NRG Trimethoprim/sulfamethoxazole susceptibility test by minimum inhibitoryconcentration R NRG Levofloxacin susceptibility test by minimum inhibitory concentration > NRG Ampicillin susceptibility test by minimum inhibitory concentration < = NRG Cefazolin susceptibility test by minimum inhibitory concentration 8 NRG Ceftriaxone susceptibility test by minimum inhibitory concentration <= NRG Ciprofloxacin susceptibility test by minimum inhibitory concentration > NRG Nitrofurantoin susceptibility test by minimum inhibitory concentration > NRG Amoxicillin and clavulanate potassium susc GERARDO <= NRG Serum or plasma troponin i.cardiac measurement (mass/volume) - 06/29/18 20:18 Serum or plasma troponin i.cardiac measurement (mass/volume) < ng/ mL <0.30 Encounters ACCT No. Visit Date/Time Discharge Status Pt. Type Provider Facility Loc./Unit Complaint [id number] 03/06/2018 06:30:00 03/12/2018 15:15:00 DIS Inpatient TRE GARCIA MD [id number] 03/06/2018 04:04:00 03/06/2018 06:24:00 DIS Emergency VALEYR BOTELLO ER [id number] 01/27/2018 05:25:00 01/29/2018 13:00:00 DIS Inpatient TRE GARCIA MD [facility] [id number] 01/21/2018 04:30:00 01/23/2018 12:00:00 DIS Inpatient TRE GARCIA MD [facility] [id number] 07/13/2016 17:03:00 07/13/2016 17:03:00 DIS Outpatient [facility] OTHER [id number] 06/25/2016 13:51:00 06/25/2016 13:51:00 DIS Outpatient [employer] [facility] OTHER [id number] 04/03/2016 18:02:00 04/03/2016 18:02:00 DIS Outpatient [facility] OTHER [id number] 04/21/2018 15:16:00 Document Registration [id number] 03/10/2018 12:56:00 Document Registration [id number] 02/04/2018 16:41:00 Document Registration [id number] 02/05/2018 12:52:48 02/05/2018 12:52:48 DIS Outpatient [facility] [id number] 07/08/2018 13:07:00 07/08/2018 13:07:00 CAN Preadmit ROSI HUTCHISON DO [facility] Z45.2 [id number] 07/02/2018 09:03:00 07/02/2018 23:59:59 CLS Outpatient PIERRE DE LA VEGA MD [facility] CARD HTN [id number] 06/29/2018 16:46:00 06/29/2018 23:59:59 CLS Outpatient PRIYA ROUSE APRN [facility] ER CP [id number] 06/26/2018 17:59:00 06/26/2018 21:58:00 DIS Outpatient PERFECTO MARVIN [facility] ER FALL [id number] 06/21/2018 18:26:00 06/21/2018 19:50:00 DIS Emergency PRIYA ROUSE APRN [facility] ER CP [id number] 06/18/2018 10:24:00 06/18/2018 16:15:00 DIS Outpatient PIERRE DE LA VEGA MD [facility] CATH ABN STRESS [id number] 06/16/2018 08:16:00 06/16/2018 23:59:59 CLS Outpatient PIERRE DE LA VEGA MD [facility] CARD HTN [id number] 06/08/2018 19:34:00 06/08/2018 21:20:00 DIS Emergency BERNOT, TAM [facility] ER FALL [id number] 05/30/2018 16:35:00 05/30/2018 17:56:00 DIS Emergency PRIYA ROUSE FOOD SAFETY COORDINATOR [facility] ER FALL [id number] 05/23/2018 18:33:00 05/23/2018 19:54:00 DIS Emergency PRIYA ROUSE FOOD SAFETY COORDINATOR [facility] ER CHEST PAIN L SIDE [id number] 05/12/2018 18:47:00 05/12/2018 22:06:00 DIS Emergency PRIYA ROUSE FOOD SAFETY COORDINATOR [facility] ER CHEST PAIN [id number] 05/11/2018 20:56:00 05/11/2018 22:49:00 DIS Emergency BERNOT, TAM [facility] ER NECK PAIN [id number] 05/10/2018 19:09:00 05/10/2018 21:49:00 DIS Emergency PRIYA ROUSE FOOD SAFETY COORDINATOR [facility] ER GENERAL [id number] 05/05/2018 19:57:00 05/05/2018 21:14:00 DIS Emergency BERNOT, TAM [facility] ER L KNEE PAIN [id number] 05/02/2018 20:10:00 05/03/2018 00:07:00 DIS Emergency EDEL ANTHONY MD [facility] ER CP [id number] 05/13/2014 14:35:00 05/13/2014 14:35:00 DIS Outpatient BEATRICE FRY [facility] ORTHO [id number] 04/22/2014 14:34:00 04/22/2014 14:34:00 DIS Outpatient BEATRICE FRY [facility] ORTHO [id number] 09/10/2016 00:24:00 09/10/2016 03:28:00 DIS Emergency ANDREW SULTANA [facility] ER CHEST DISCOMFORT [id number] 08/05/2016 20:05:00 08/05/2016 23:59:59 CLS [facility] ER FALL [id number] 08/05/2016 20:05:00 08/05/2016 22:40:00 DIS Emergency MEME MILLS [facility] ER FALL [id number] 07/31/2016 19:09:00 07/31/2016 22:30:00 [facility] [id number] 07/19/2016 22:07:00 07/20/2016 00:45:00 DIS Emergency BENIGNO PALACIOS [facility] ER R KNEE PAIN [id number] 07/16/2016 21:22:00 07/16/2016 22:35:00 DIS Emergency IAN BROOKS [facility] ER FALL [id number] 04/25/2016 12:21:00 04/25/2016 23:59:59 CLS Outpatient ELISEO CATHERINE [facility] NPLAB [id number] 04/18/2016 14:25:00 04/18/2016 16:05:00 DIS Emergency NICK BAIN [facility] ER BACK PAIN [id number] 04/17/2016 07:15:00 04/17/2016 08:07:00 DIS Emergency IAN BROOKS [facility] ER BACK PAIN [id number] 02/17/2018 15:52:00 Document Registration [id number] 02/17/2018 13:11:00 Document Registration [id number] 06/29/2016 22:15:00 Document Registration [id number] 03/06/2016 08:34:00 Document Registration [id number] 02/20/2016 09:23:00 Document Registration [id number] 02/06/2016 08:43:00 Document Registration [id number] 02/01/2016 09:28:00 Document Registration [id number] 01/30/2016 09:56:00 Document Registration [id number] 01/24/2016 14:29:00 Document Registration [id number] 01/18/2016 10:02:00 Document Registration [id number] 01/17/2016 09:44:00 Document Registration [id number] 01/16/2016 08:27:00 Document Registration [id number] 01/13/2016 10:10:00 Document Registration [id number] 01/09/2016 11:09:00 Document Registration [id number] 01/04/2016 08:29:00 Document Registration [id number] 01/02/2016 13:29:00 Document Registration [id number] 12/29/2015 15:42:00 Document Registration [id number] 12/06/2015 05:08:00 Document Registration [id number] 12/03/2015 21:25:00 Document Registration [id number] 11/30/2015 21:48:00 Document Registration [id number] 11/27/2015 21:00:00 Document Registration [id number] 11/25/2015 23:58:00 Document Registration [id number] 11/21/2017 06:09:00 Document Registration
--- NOTE | 2018-07-10 19:31 | Diagnostic Imaging Report ---
PROCEDURE: CT cervical spine without contrast. TECHNIQUE: Multiple contiguous axial images were obtained through the cervical spine without the use of intravenous contrast. Sagittal and coronal reformations were then performed. INDICATION: Neck pain after fall. COMPARISON: CT thoracic spine performed concurrently. COMPARISON: CT head and cervical spine of 06/08/2018. FINDINGS: No acute fracture or traumatic malalignment in the cervical spine. Visualized temporal bones are intact. No high-grade spinal stenosis or foraminal narrowing. No cervical lymphadenopathy. IMPRESSION: No acute fracture or traumatic malalignment in the cervical spine. Dictated by: Dictated on workstation # [id number]
--- NOTE | 2018-07-10 19:38 | Diagnostic Imaging Report ---
PROCEDURE: CT chest without contrast. TECHNIQUE: Multiple contiguous axial images were obtained through the chest without the use of intravenous contrast. INDICATION: Fell, complains of pain in the lower thoracic spine area COMPARISON STUDIES: CT of the thoracolumbar spine from today. FINDINGS: Noncontrast CT scan of the chest demonstrates the lungs to be clear. No pleural effusion or pneumothorax is present. The heart and mediastinum appear normal. No abnormal calcifications are present. The L1 compression fracture would be dictated with the spinal films. No acute rib fractures are present. There is an old healed left seventh rib fracture. IMPRESSION: 1. There is an L1 compression fracture which will be dictated separately. This was present on June. 2. The lungs and chest appear normal. 3. There are old bilateral rib fractures. 4. Fatty metamorphosis of the liver is present. Dictated by: Dictated on workstation # [id number]
--- NOTE | 2018-07-10 19:42 | Diagnostic Imaging Report ---
CT THORACIC/LUMBAR SPINE WO. TECHNIQUE: Unenhanced CT imaging of the thoracic and lumbar spine. Sagittal and coronal reformats are submitted. INDICATION: Back pain after fall. COMPARISON: CT lumbar spine of 06/26/2018. FINDINGS: Chronic superior endplate compression fracture of T11 with associated Schmorl's node. There is no acute fracture or traumatic malalignment within the thoracic or lumbar spine. No high-grade spinal stenosis. Visualized aspects of the posterior ribs are intact. Multilevel degenerative disc disease is unchanged. Visualized aspects of the sacrum are intact. SI joints are normal in alignment. No concerning abnormality appreciated in the retroperitoneum. IMPRESSION: 1. No acute fracture or traumatic malalignment in the thoracic or lumbar spine. 2. Chronic anterior wedging deformity of T11. Dictated by: Dictated on workstation # [id number]
--- NOTE | 2018-07-10 19:54 | ED Fall/Injury ---
General Chief Complaint: Trauma-Non Activation Stated Complaint: FALL Nursing Triage Note: PT ARRIVED PER EMS, PT STATES FELL AT [place], STATES STOOD UP TO TRANSFER AND R LEG GAVE OUT AND FELL ON BACK, PT DENIES HITTING HEAD OR LOC. PT WANTING PAIN MEDS FOR LOW BACK PAIN. PT HAS PICC LINE IN R AC THAT SHE IS GETTING IV ANTIBIOTICS IN Source: patient, EMS History of Present Illness Date Seen by Provider: Jul 10, 2018 Time Seen by Provider: 18:32 Initial Comments PT ARRIVES VIA EMS FROM [facility] PT FELL APPROXIMATELY 30 MINUTES AGO STATES SHE IS WHEELCHAIR BOUND BUT CAN STAND FOR TRANSFERS AND PIVOT. STATES SHE SLEEPS IN A RECLINER--PT IS WHEELCHAIR BOUND DUE TO MORBID OBESITY WITH CHRONIC GENERALIZED PAIN COMPLAINTS. STATES SHE WAS GETTING CLOTHES OUT / WAS STANDING, AND TURNED AROUND TO SIT IN THE WHEELCHAIR AND HER 'KNEES BUCKLED' AND SHE SLID / FELL DOWN PT STATES SHE HAS PAIN "IN MY LOWER BACK AT L4-L5 LEVEL" AND STATES SHE HIT HER UPPER BACK / MORE ON RIGHT " ON THE BAR OF AN ARMOIRE" PT HAS CHRONIC BACK PAIN, HAS HAD L4-L5 LAMINECTOMY, AND HAS HYDROCODONE AND GABAPENTIN FOR HER CHRONIC PAIN STATES "MY PAIN IS A 9" AND WANTING PAIN MEDICATIONS SOON SHE ARRIVES.( PT IS SOMEWHAT FLAT AND DOES NOT APPEAR TO BE IN ANY DISCOMFORT WHATSOEVER. ) NO PARESTHESIAS OR MOTOR DEFICITS, BUT HAS HISTORY OF NEUROPATHY. NO DIRECT TRAUMA TO ANY PART OF BODY HAS NOT HAD ANYTHING FOR PAIN PT CURRENTLY HAS A PICC LINE IN RIGHT UPPER ARM--PT STATES IS FOR UTI AND SINUS INFECTION PT IS VERY WELL KNOWN TO EMS STAFF PT HAS HAD 13 VISITS HERE SINCE HER FIRST VISIT HERE 05/03/18--ALL FOR VARIOUS PAIN COMPLAINTS HISTORY OF FREQUENT FALLS PT HAS BEEN IN [facility] SINCE 04/20/18--FORMERLY OF [place], [place] Location Injury Occurred: [place] PCP: DR. HUTCHISON Allergies and Home Medications Allergies Coded Allergies: Cephalosporins (Verified Allergy, Unknown, 05/02/18) Penicillins (Verified Allergy, Unknown, 05/02/18) Sulfa (Sulfonamide Antibiotics) (Verified Allergy, Unknown, 05/02/18) aspirin (Verified Allergy, Unknown, 05/12/18) cephalexin (Verified Allergy, Unknown, 05/02/18) codeine (Verified Allergy, Unknown, 05/02/18) diphenhydramine (Verified Allergy, Unknown, 05/02/18) erythromycin base (Verified Allergy, Unknown, 05/02/18) iodine (Verified Allergy, Unknown, 05/02/18) ketorolac (Verified Allergy, Unknown, 05/02/18) morphine (Verified Allergy, Unknown, 05/02/18) propoxyphene (Verified Allergy, Unknown, 05/02/18) tetracycline (Verified Allergy, Unknown, 05/02/18) Home Medications Carvedilol 6.25 Mg Tablet, 6.25 MG PO BID, (Reported) HOLD FOR SBP<100 OR PULSE <60 Ciprofloxacin HCl 500 Mg Tablet, 500 MG PO BID, (Reported) 7 DAY THERAPY START DATE 06-12-18 END DATE 06-19-18 Ciprofloxacin HCl 500 Mg Tablet, 500 MG PO BID Prescribed by: PRIYA ROUSE on 06/29/181923 Clonazepam 0.25 Mg Tab.rapdis, 0.25 MG PO BID, (Reported) Cranberry Extract 500 Mg Tablet, 1,000 MG PO BID, (Reported) Diclofenac Sodium 100 Gm Gel..gram., 4 GM TP Q8H PRN for KNEE PAIN, (Reported) Divalproex Sodium 500 Mg Tab.er.24h, 500 MG PO HS, (Reported) Duloxetine HCl 60 Mg Capsule.dr, 60 MG PO BID, (Reported) Gabapentin 600 Mg Tablet, 600 MG PO BID, (Reported) Hydrocodone Bitartrate 20 Mg Tab.er.24h, 20 MG PO DAILY PRN for CHRONIC PAIN, ( Reported) Hydroxyzine HCl 25 Mg Tablet, 25 MG PO BID, (Reported) Levothyroxine Sodium 200 Mcg Tablet, 200 MCG PO DAILY, (Reported) Mag Hydrox/Al Hydrox/Simeth 30 Ml Oral.susp, 30 ML PO Q4H PRN for INDIGESTION, ( Reported) Montelukast Sodium 10 Mg Tablet, 10 MG PO HS, (Reported) Olanzapine 10 Mg Tablet, 10 MG PO HS, (Reported) Omeprazole 20 Mg Capsule.dr, 20 MG PO BID, (Reported) Rivaroxaban 20 Mg Tablet, 20 MG PO HS, (Reported) Rosuvastatin Calcium 20 Mg Tablet, 20 MG PO HS, (Reported) Saccharomyces Boulardii 250 Mg Capsule, 250 MG PO BID, (Reported) Topiramate 100 Mg Tablet, 100 MG PO BID, (Reported) Patient Home Medication List Home Medication List Reviewed: Yes Review of Systems Review of Systems Constitutional: no symptoms reported Respiratory: no symptoms reported Cardiovascular: no symptoms reported Gastrointestinal: no symptoms reported Genitourinary: no symptoms reported Musculoskeletal: see HPI, back pain Skin: no symptoms reported Psychiatric/Neurological: No Symptoms Reported, Pre-Existing Deficit (HX OF NEUROPATHY) CURRENT PICC LINE FOR SINUS INFECTION AND UTI Past [id number] Hx Patient Social History Alcohol Use: Denies Use Recreational Drug Use: No Smoking Status: Current Everyday Smoker (4 PPD) Type Used: Cigarettes (4 PPD) 2nd Hand Smoke Exposure: Yes Recent Foreign Travel: No Contact w/Someone Who Travel: No Recent Infectious Disease Expo: No Recent Hopitalizations: No Physical Abuse: No Sexual Abuse: No Immunizations Up To Date Tetanus Booster (TDap): Unknown Date of Pneumonia Vaccine: May 04, 2009 Seasonal Allergies Seasonal Allergies: Yes Past Medical History Surgeries: Yes (RIGHT TOTAL KNEE REPLACEMENT; L4-L5 LAMINECTOMY; 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; HYST/BSO; SINUS SURGERY X 8) Amputation, Hysterectomy, Joint Replacement, Oophorectomy, Orthopedic, Tubal Ligation Respiratory: Yes Chronic Bronchitis, COPD Currently Using CPAP: Yes (WITH O2) Cardiac: Yes (DVT-LEG) Chronic Edema/Swelling, Deep Vein Thrombosis, High Cholesterol, Hypertension Neurological: Yes (PERIPHEARL NEUROPATHY) Headaches /Migraines, Neuropathy [employer] WORK[employer] History: Hysterectomy, Tubal Ligation, Menopausal Genitourinary: No Gastrointestinal: Yes Gastroesophageal Reflux Musculoskeletal: Yes (RIGHT KNEE REPLACEMENT; T11/L1 COMPRESSION FX; BILATERAL RIB FRACTURES; L4-L5 LAMINECTOMY; FREQUENT FALLS; WHEELCHAIR BOUND DUE TO FALLS , MORBID OBESITY AND CHRONIC GENERALIZED PAIN AND WEAKNESS) Chronic Back Pain Endocrine: Yes (MORBID OBESITY) Hypothyroidsim, Diabetes, Non-Insulin dep HEENT: Yes (CHRONIC SINUSITIS) Cancer: No Psychosocial: Yes Anxiety, Bipolar, Depression Integumentary: Yes (CELLULITIS) Blood Disorders: No Family Medical History No Pertinent Family Hx Physical Exam Vital Signs Vital Signs - First Documented 07/10/18 18:35 Temp 97.8 Pulse 99 Resp 20 B/P (MAP) 142/78 (99) Pulse Ox 100 Capillary Refill : Less Than 3 Seconds Height, Weight, BMI Height: 5'5.00" Weight: 312lbs. 0.0oz. 141.289735pm; 50.4 BMI Method:Stated General Appearance: obese (MORBIDLY OBESE. LAYING FLAT, DOES NOT APPEAR TO BE IN ANY DISCOMFORT WHATSOEVER. SLIGHTLY FLAT AFFECT. ) HEENT: normal ENT inspection Neck: non-tender, full range of motion, supple, normal inspection Cardiovascular: regular rate, rhythm, no murmur Respiratory: chest non-tender, normal breath sounds, no respiratory distress Gastrointestinal: normal bowel sounds, non tender, soft Back: other (DIFFUSE TENDERNESS TO BACK AND C/O PAIN LITERALLY EVERYWHERE SHE IS TOUCHED ON HER BACK. TENDERNESS TO RIGHT POSTERIOR/LATERAL RIBS; TENDERNESS TO LEFT TRAPEZIUS AREA. NO EXTERNAL EVIDENCE OF TRAUMA, NO CREPITANCE OR SUB Q AIR. ) Extremities: normal range of motion, non-tender, normal inspection, normal capillary refill, other (+ EDEMA WITH CHRONIC VENOUS STASIS CHANGES BILATERALLY , BUT DIFFICULT TO DETERMINE DEGREE OF EDEMA DUE TO BODY HABITUS; PICC IN RIGHT UPPER ARM. 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, no motor/sensory deficits, alert, normal mood/affect, oriented x 3 Skin: normal color, warm/dry; No ecchymosis; other (NO EXTERNAL EVIDENCE OF TRAUMA NOTED ANYWHERE) Aris Coma Score Best Eye Response: (4) Open Spontaneously Best Verbal Response: (5) Oriented Best Motor Response: (6) Obeys Commands [place] Total: 15 Progress/Results/Core Measures Results/Orders My Orders Orders - IAN GONZALEZ DO Pelvis (07/10/18 18:41) Ct Chest Wo (07/10/18 18:41) Ct Thoracic/Lumbar Spine Wo (07/10/18 18:41) Ct Cervical Spine Wo (07/10/18 ) Vital Signs/I&O 07/10/18 07/10/18 07/10/18 18:35 19:39 20:09 Temp 97.8 98.3 98.3 Pulse 99 88 Resp 20 18 B/P (MAP) 142/78 (99) 104/50 (68) Pulse Ox 100 98 Blood Pressure Mean: 99 Progress Progress Note : Progress Note ON RETURN FROM CT, PY LAYING ON RIGHT SIDE ( SIDE SHE STATES HIT THE BAR ON ARMOIRE) WITHOUT ANY EVIDENCE OF DISCOMFORT. Diagnostic Imaging Comments CT CERVICAL/THORACIC/LUMBAR SPINE AND CT CHEST--NO ACUTE PROCESS, STABLE/ UNCHANGED T11/L1 COMPRESSION FRACTURE; BILATERAL OLD RIB FRACTURES; FATTY LIVER. PELVIS XRAY-NO ACUTE PROCESS ALL PER RADIOLOGIST REPORTS AT 1948 Reviewed: Reviewed by Me Departure Impression Primary Impression: S/P FALL FROM STANDING POSITION Additional Impressions: Exacerbation of chronic back pain Contusion of right side of mid back Disposition: 03 XFER SNF Condition: Stable Departure-Patient Inst. Referrals: ROSI HUTCHISON DO (PCP/Family) Primary Care Physician Patient Instructions: CHEST CONTUSION, CHRONIC PAIN, Contusion (DC), MANAGING YOUR CHRONIC PAIN, Preventing Falls in the Older Adult Add. Discharge Instructions: CONTINUE YOUR CURRENT MEDICATIONS PRESCRIBED FOLLOW UP WITH DR. HUTCHISON NEXT WEEK IF NO BETTER All discharge instructions reviewed with patient and/or family. Voiced understanding. IAN GONZALEZ DO Jul 10, 2018 19:54
[2018-07-10 20:09] VITALS: BP 104/50
== END 2018-07-10 20:15 ==
LOC: EDUNIT# 18:34 → ER 18:36
DX: S30.0XXA Contusion of lower back and pelvis, initial encounter (principal); M54.5 Low back pain; G89.29 Other chronic pain; E66.01 Morbid (severe) obesity due to excess calories; J44.9 Chronic obstructive pulmonary disease, unspecified; E78.00 Pure hypercholesterolemia, unspecified; I10 Essential (primary) hypertension; G43.909 Migraine, unspecified, not intractable, without status migrainosus; K21.9 Gastro-esophageal reflux disease without esophagitis; E11.40 Type 2 diabetes mellitus with diabetic neuropathy, unspecified; E03.9 Hypothyroidism, unspecified; F41.9 Anxiety disorder, unspecified; F31.9 Bipolar disorder, unspecified; R40.2142 Coma scale, eyes open, spontaneous, at arrival to emergency department; R40.2252 Coma scale, best verbal response, oriented, at arrival to emergency department; R40.2362 Coma scale, best motor response, obeys commands, at arrival to emergency department; F17.210 Nicotine dependence, cigarettes, uncomplicated; Z98.1 Arthrodesis status; Z68.43 Body mass index [BMI] 50.0-59.9, adult; Z91.81 History of falling; Z86.718 Personal history of other venous thrombosis and embolism; Z96.651 Presence of right artificial knee joint; Z90.710 Acquired absence of both cervix and uterus; Z89.421 Acquired absence of other right toe(s); Z98.51 Tubal ligation status; Z87.09 Personal history of other diseases of the respiratory system; Z88.0 Allergy status to penicillin; Z88.2 Allergy status to sulfonamides; Z79.01 Long term (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 of anticoagulants; W18.39XA Other fall on same level, initial encounter
CPT/HCPCS: 71250; 72125; 72128; 72131; 72170

== ENCOUNTER 2018-07-14 12:40 | Outpatient (RCR) | payer MEDICARE, MEDICAID ==
[2018-07-08 13:40] VITALS: BP 148/76
--- NOTE | 2018-07-09 14:40 | Diagnostic Imaging Report ---
INDICATION: PICC line placement. TIME OF EXAMINATION: 01:52 p.m. COMPARISON: Correlation is made with prior study from 06/29/2018. FINDINGS: A right upper extremity PICC line appears to be malpositioned. PICC line is seen in the right axilla and appears to be looped, likely in region of the cephalic and axillary vein with tip directed retrograde. There is some subsegmental atelectasis in the right base. No pneumothorax is seen. IMPRESSION: Malpositioned right-sided PICC line which appears to be looped in the right axilla. Dictated by: Dictated on workstation # [id number]
--- NOTE | 2018-07-09 15:23 | Diagnostic Imaging Report ---
Indication: PICC line placement. Time of Exam: 3:09 PM Correlation is made with prior study from 07/09/2018. The right upper extremity PICC line continues to be malpositioned. The PICC line appears to be looped in the right axilla with tip directed retrograde in the axillary vein. No pneumothorax is seen. Heart size is stable. Right basilar subsegmental atelectasis is again noted. Impression: The PICC line continues to be looped in the right axilla with the tip directed retrograde in the right axillary vein. This will need to be pulled back at least 7-8 cm and redirected. Dictated by: Dictated on workstation # [id number]
--- NOTE | 2018-07-09 15:33 | Diagnostic Imaging Report ---
INDICATION: Malpositioned PICC line. TIME OF EXAM: 3:26 PM COMPARISON: Correlation is made with study earlier same day. FINDINGS: The right upper extremity PICC line has been repositioned. The tip now appears to be directed antegrade. Tip is slightly low in position overlying the mid right atrium. This could be pulled back 2-3 cm. The lungs are clear apart from subsegmental atelectasis right base. IMPRESSION: Right-sided PICC line placement, as described. Dictated by: Dictated on workstation # [id number]
[~2018-07-14] VITALS: Ht 165.1 cm; Wt 141.5 kg
[2018-07-14 12:15] VITALS: BP 124/64
[2018-07-14 12:58] LABS: BILIRUBIN,URINE NEGATIVE (NEGATIVE); CLARITY,URINE CLEAR; COLOR,URINE YELLOW; GLUCOSE, URINE (UA) NEGATIVE (NEGATIVE); KETONES,URINE NEGATIVE (NEGATIVE); LEUKOCYTE ESTERASE ,URINE NEGATIVE (NEGATIVE); NITRITE,URINE NEGATIVE (NEGATIVE); PH,URINE 7 (5-9); PROTEIN,URINE 1+ (NEGATIVE); UROBILINOGEN,URINE NORMAL (NORMAL)
[2018-07-14 13:04] LABS: BACTERIA,URINE NEGATIVE /HPF
== END 2018-07-14 13:31 | disposition home or self-care (01) ==
LOC: SDC 12:40
PROVIDERS: ATTEND Family Medicine
DX: N39.0 Urinary tract infection, site not specified (principal)
CPT/HCPCS: 36569; 71045; 76937; 81000

== ENCOUNTER 2018-10-12 19:14 | Emergency (ER) | payer MEDICARE, MEDICAID ==
[~2018-10-12] VITALS: Ht 165.1 cm; Wt 149.7 kg
[~2018-10-12 19:14] MED LIST changes: -GABA600T2 PO; +GBPN600T PO
--- OUTSIDE RECORDS SUMMARY | 2018-10-12 19:42 | XMS REPORT | Continuity of Care Document ---
Author Author [facility] Address Unknown Phone Unavailable Allergies Active Description Code Type Severity Reaction Onset Reported/Identified Relationship to Patient Clinical Status Yes aspirin [id number] Drug Unknown N/A Yes banana Food Unknown N/A Yes cephalexin h51634 Drug Unknown N/A Yes codeine c84162 Drug Unknown N/A Yes diphenhydrAMINE i98754 Drug Unknown N/A Yes erythromycin base u78623 Drug Unknown N/A Yes Fish Food Unknown N/A Yes iodine q98248 Other Unknown N/A Yes ketorolac e05150 Drug Unknown N/A Yes Latex Environment Unknown N/A Yes Milk Products Food Unknown N/A Yes morphine b50596 Drug Unknown N/A Yes Mushroom Food Unknown N/A Yes oxyCODONE f38657 Drug Unknown N/A Yes penicillin b39747 Drug Unknown N/A Yes propoxyphene x52629 Drug Unknown N/A Yes sulfonamides Drug Unknown N/A Yes tetracycline m79153 Drug Unknown N/A Yes ASPIRIN 1191 Drug Allergy N/A N/A Yes BENADRYL [id number] Drug Allergy N/A N/A Yes CEPHALOSPORINS Drug Allergy N /A N/A Yes CODEINE Drug Allergy N/A N/A Yes DARVON 899745 Drug Allergy N/A N/A Yes ERYTHROMYCIN [id number] Drug Allergy N/A N/A Yes IODINE 5933 Drug Allergy N/A N/A Yes KEFLEX [id number] Drug Allergy N/A N/A Yes MORPHINE Drug Allergy N/A N/A Yes PENICILLINS Drug Allergy N/A N/A Yes SULFA ANTIBIOTICS Drug Allergy N/A N/A Yes TETRACYCLINE 13393 Drug Allergy N/A N/A Yes TORADOL 467315 Drug Allergy N/ A N/A Yes ASPIRIN 1191 Drug Allergy N/A N/A Yes BENADRYL [id number] Drug Allergy N/A N/A Yes DARUNAVIR-COBICISTAT 7925289 Drug Allergy N/A N/A Yes DARZALEX 10011617443 Drug Allergy N/A N/A Yes ERYTHROMYCIN 12400532696 Drug Allergy N/A N/A Yes IODINE 5933 Drug Allergy N/A N/A Yes KEFLEX 92797864172 Drug Allergy N/A N/A Yes MORPHINE SULFATE [id number] Drug Allergy N/A N/A Yes PENICILLIN Drug Allergy N/A N/A Yes PERCOCET 83842602869 Drug Allergy N/A N/A Yes SULFA Drug Allergy N/A N/A Yes SUPRAX 51685439400 Drug Allergy N/A N/A Yes TETRACYCLINE HCL 64796280656 Drug Allergy N/A N/A Yes TORODOL Drug Allergy N/A N/A Yes aspirin N119082425 Drug Allergy Unknown N/A 11/26/2015 Yes codeine J682155976 Drug Allergy Unknown N/A 11/26/2015 Yes diphenhydramine V200679201 Drug Allergy Unknown N/A 11/26/2015 Yes erythromycin base S958948853 Drug Allergy Unknown N/A 11/26/2015 Yes ketorolac T787961227 Drug Allergy Unknown N/A 11/26/2015 Yes morphine V537794624 Drug Allergy Unknown N/A 11/26/2015 Yes tetracycline O160232197 Drug Allergy Unknown N/A 11/26/2015 Yes Cephalosporins C218031927 Drug Allergy Unknown N/A 12/06/2015 Yes Iodine and Iodide Containing Produc E798045241 Drug Allergy Unknown N/A 07/2016 Yes Penicillins Y689718518 Drug Allergy Unknown N/A 12/06/2015 Yes Sulfa (Sulfonamide Antibiotics) U037122789 Drug Allergy Unknown N/A 2015 Yes cephalexin O760915775 Drug Allergy Unknown N/A 05/02/2018 Yes Cephalosporins U318793351 Drug Allergy Unknown N/A 05/02/2018 Yes codeine D993476268 Drug Allergy Unknown N/A 05/02/2018 Yes diphenhydramine K725478980 Drug Allergy Unknown N/A 05/02/2018 Yes erythromycin base U808183279 Drug Allergy Unknown N/A 05/02/2018 Yes iodine I972327327 Drug Allergy Unknown N/A 05/02/2018 Yes ketorolac Z946397289 Drug Allergy Unknown N/A 05/02/2018 Yes morphine B836194847 Drug Allergy Unknown N/A 05/02/2018 Yes Penicillins T141698905 Drug Allergy Unknown N/A 05/02/2018 Yes propoxyphene F269848548 Drug Allergy Unknown N/A 05/02/2018 Yes Sulfa (Sulfonamide Antibiotics) W086311980 Drug Allergy Unknown N/A 2017 Yes tetracycline J657824037 Drug Allergy Unknown N/A 05/02/2018 Yes aspirin D744510581 Drug Allergy Unknown N/A 05/12/2018 Medications Medication Packaging Start Date Stop Date Route Dosage Sig FENTANYL Transdermal 06/30/2015 07/25/2015 Transdermal 1010 every 3 days ZYRTEC ALLERGY ORAL 07/25/2015 01/22/2017 ORAL 3030 daily TYLENOL EXTRA STRENGTH ORAL 2014 ORAL 346888 every 4 hours TYLENOL ORAL 07/25/2015 ORAL 331746 every 6 hours TRAZODONE HCL ORAL 07/25/2015 [...] ORAL 3030 daily NITROSTAT Sublingual 10/24/2015 Sublingual 357535 MINTOX ORAL 10/24/2015 01/22/2017 ORAL MILK OF [...] at bedtime GABAPENTIN ORAL 02/01/2017 10/24/2017 ORAL 220216 3 times a day DIFLUCAN ORAL 02/01/2017 [...] for itching GABAPENTIN ORAL 10/24/2017 11/23/2017 ORAL 141248 3 times a day CARVEDILOL ORAL 10/24/2017 [...] Coded Attending Type Code Diagnosis Diagnosed By 07/25/1330 ROSI HUTCHISON DO Ot N39.0 URINARY TRACT INFECTION, SITE NOT SPECIF 11/26/2015 Other F17.210 NICOTINE DEPENDENCE, CIGARETTES, UNCOMPLICATED [...] 12/06/2015 Other R07.89 OTHER CHEST PAIN 04/03/2016 [employer] DRIVERKARTHIKE A D E03.9 Hypothyroidism, unspecified 04/03/2016 [employer] DRIVERCORNELIADIE A D I10 Essential (primary) hypertension 04/17/2016 IAN BROOKS [...] 06/30/2016 Other R07.89 OTHER CHEST PAIN 07/13/2016 ELISEO KELLY I10 Essential (primary) hypertension 07/16/2016 IAN BROOKS APRN Other S70.01XA CONTUSION OF RIGHT HIP, INITIAL ENCOUNTER 07/16/2016 IAN BROOKS APRN Other W18.30XA FALL ON SAME LEVEL, UNSPECIFIED, INITIAL ENCOUNTER 07/16/2016 IAN BROOKS APRN Other Y92.[address] IN SHELTER PLACE 07/20/2016 BENIGNO PALACIOS Other S83.91XA SPRAIN OF UNSPECIFIED SITE OF RIGHT KNEE, INITIAL ENCOUNTER 07/20/2016 BENIGNO PALACIOS Other W19.XXXA UNSPECIFIED FALL, INITIAL ENCOUNTER 07/31/2016 ABDIEL ROMERO MD Other E66.09 OTHER OBESITY DUE TO EXCESS CALORIES 07/31/2016 ABDIEL ROMERO MD Other F17.210 NICOTINE DEPENDENCE, CIGARETTES, UNCOMPLICATED 07/31/2016 ABDIEL ROMERO MD Other G89.29 OTHER CHRONIC PAIN 07/31/2016 ABDIEL ROMERO MD Other M54.9 DORSALGIA, UNSPECIFIED 07/31/2016 ABDIEL ROMERO MD Other W01.198A FALL SAME LEV FROM SLIP/TRIP W STRIKE AGNST OTH OBJECT, INIT 07/31/2016 ABDIEL ROMERO MD Other Y92.[address] IN SHELTER PLACE 08/05/2016 MEME MILLS APRN Other M54.9 DORSALGIA, UNSPECIFIED 08/05/2016 MEME MILLS APRN Other S32.000A WEDGE COMPRESSION FRACTURE OF UNSP LUMBAR VERTEBRA, INIT 08/05/2016 MEME MILLS APRN Other W18.39XA OTHER FALL ON SAME LEVEL, INITIAL ENCOUNTER 08/05/2016 MEME MILLS APRN Other Y92.[address] OF OCCURRENCE OF THE EXTERNAL CAUSE 08/05/2016 MEME MILLS LIVING MANAGER Other Z91.81 HISTORY OF FALLING 09/10/2016 ANDREW [...] UP EXTREM, BI 02/18/2018 Other Z79.899 OTHER TENANT COORDINATOR (CURRENT) DRUG THERAPY 02/18/2018 Other Z79.899 OTHER TENANT COORDINATOR (CURRENT) DRUG THERAPY 02/18/2018 Other Z79.01 SENIOR CARE (CURRENT) USE OF ANTICOAGULANTS 02/18/2018 Other E78.2 [...] (BMI) 45.0-49.9, adult 03/06/2018 VALERY BOTELLO 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.01 vermin exterminator (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 of anticoagulants 03/06/2018 VALERY BOTELLO [...] PERIPHERAL VASCULAR DISEASE, UNSPECIFIED 05/03/2018 EDEL ANTHONY MD Ot E03.9 HYPOTHYROIDISM, UNSPECIFIED 05/03/2018 EDEL ANTHONY MD Ot E11.9 TYPE 2 DIABETES MELLITUS WITHOUT COMPLIC 05/03/2018 EDEL ANTHONY MD Ot E78.00 PURE HYPERCHOLESTEROLEMIA, UNSPECIFIED 05/03/2018 EDEL ANTHONY MD Ot F17.210 NICOTINE DEPENDENCE, CIGARETTES, UNCOMPL 05/03/2018 EDEL ANTHONY MD, Ot F31.9 BIPOLAR DISORDER, UNSPECIFIED 05/03/2018 EDEL ANTHONY MD, Ot F41.9 ANXIETY DISORDER, UNSPECIFIED 05/03/2018 EDEL ANTHONY MD Ot G43.909 MIGRAINE, UNSP, [...] ZHOU TAM Ot E03.9 HYPOTHYROIDISM, UNSPECIFIED 05/05/2018 BERNMARIE TAM Ot E11.9 TYPE 2 DIABETES MELLITUS WITHOUT COMPLIC 05/05/2018 ZHOU TAM Ot E78.00 PURE HYPERCHOLESTEROLEMIA, UNSPECIFIED 05/05/2018 BERNOT TAM Ot F17.200 NICOTINE DEPENDENCE, UNSPECIFIED, UNCOMP 05/05/2018 BLESSING EPPERSONIS Ot F32.9 MAJOR DEPRESSIVE DISORDER, SINGLE EPISOD 05/05/2018 TAM EPPERSON Ot F41.9 ANXIETY DISORDER, UNSPECIFIED 05/05/2018 BLESSING EPPERSONIS Ot G43.909 MIGRAINE, UNSP, NOT INTRACTABLE, WITHOUT 05/05/2018 BLESSING EPPERSONIS Ot I10 ESSENTIAL (PRIMARY) HYPERTENSION 05/05/2018 CORINETAM SALAZAR Ot K21.9 GASTRO-ESOPHAGEAL REFLUX DISEASE WITHOUT 05/05/2018 TAM EPPERSON Ot M25.562 PAIN IN LEFT KNEE 05/05/2018 TAM EPPERSON Ot W19.XXXA UNSPECIFIED FALL, INITIAL ENCOUNTER 05/05/2018 TAM EPPERSON Ot X50.1XXA OVEREXERTION FROM PROLONGED STATIC OR AW 05/05/2018 CORINETAM SALAZAR Ot Y92.[address] IN [facility] 05/05/2018 TAM EPPERSON Ot Z86.718 PERSONAL [...] Ot Z91.041 RADIOGRAPHIC DYE ALLERGY STATUS 05/08/2018 GABRIELLE BAIN, EDEL Guzman Ot E03.9 HYPOTHYROIDISM, UNSPECIFIED 05/08/2018 EDEL ANTHONY MD Ot E11.9 TYPE 2 DIABETES MELLITUS WITHOUT COMPLIC 05/08/2018 EDEL ANTHONY MD Ot E78.00 PURE HYPERCHOLESTEROLEMIA, UNSPECIFIED 05/08/2018 EDEL ANTHONY MD Ot F17.210 NICOTINE DEPENDENCE, CIGARETTES, UNCOMPL 05/08/2018 EDEL ANTHONY MD Ot F31.9 BIPOLAR DISORDER, UNSPECIFIED 05/08/2018 EDEL ANTHONY MD Ot F41.9 ANXIETY DISORDER, UNSPECIFIED 05/08/2018 EDEL [...] R55 SYNCOPE AND COLLAPSE 05/10/2018 PRIYA ROUSE LIVING MANAGER Ot S16.1XXA STRAIN OF MUSCLE, FASCIA AND TENDON AT N 05/10/2018 PRIYA ROUSE LIVING MANAGER Ot V00.811A FALL FROM MOVING WHEELCHAIR (POWERED), I 05/10/2018 PRIYA ROUSE LIVING MANAGER Ot W22.09XA STRIKING AGAINST OTHER STATIONARY OBJECT 05/10/2018 PRIYA ROUSE LIVING MANAGER Ot Z79.01 SENIOR CARE (CURRENT) USE OF ANTICOAGULANT 05/10/2018 PRIYA ROUSE LIVING MANAGER Ot Z86.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 05/10/2018 PRIYA ROUSE LIVING MANAGER Ot Z88.0 ALLERGY STATUS TO PENICILLIN 05/10/2018 PRIYA ROUSE LIVING MANAGER Ot Z88.1 ALLERGY STATUS TO OTHER ANTIBIOTIC AGENT 05/10/2018 PRIYA ROUSE LIVING MANAGER Ot Z88.2 ALLERGY STATUS TO SULFONAMIDES STATUS 05/10/2018 PRIYA ROUSE LIVING MANAGER Ot Z88.4 ALLERGY STATUS TO ANESTHETIC AGENT STATU 05/10/2018 PRIYA ROUSE LIVING MANAGER Ot Z88.5 ALLERGY STATUS TO NARCOTIC AGENT STATUS 05/10/2018 PRIYA ROUSE LIVING MANAGER Ot Z88.6 ALLERGY STATUS TO ANALGESIC AGENT STATUS 05/10/2018 PRIYA ROUSE LIVING MANAGER Ot Z88.8 ALLERGY STATUS TO OTH DRUG/MEDS/BIOL SUB 05/11/2018 TAM EPPERSON Ot E03.9 HYPOTHYROIDISM, UNSPECIFIED 05/11/2018 BERNMARIE TAM Ot E11.9 TYPE 2 DIABETES MELLITUS WITHOUT COMPLIC 05/11/2018 ZHOU TAM Ot E78.00 PURE HYPERCHOLESTEROLEMIA, UNSPECIFIED 05/11/2018 ZHOU TAM Ot F32.9 MAJOR DEPRESSIVE DISORDER, SINGLE EPISOD 05/11/2018 ZHOU TAM Ot F41.9 ANXIETY DISORDER, UNSPECIFIED 05/11/2018 ZHOU TAM Ot G43.909 MIGRAINE, UNSP, NOT INTRACTABLE, WITHOUT 05/11/2018 ZHOU TAM Ot I10 ESSENTIAL (PRIMARY) HYPERTENSION 05/11/2018 ZHOU TAM Ot K21.9 GASTRO-ESOPHAGEAL REFLUX DISEASE WITHOUT 05/11/2018 ZHOU TAM Ot M54.2 CERVICALGIA 05/11/2018 TAM EPPERSON Ot S13.4XXA SPRAIN OF LIGAMENTS OF CERVICAL SPINE, I 05/11/2018 TAM EPPERSON Ot W19.XXXA UNSPECIFIED FALL, INITIAL ENCOUNTER 05/11/2018 TAM EPPERSON Ot W22.09XA STRIKING AGAINST OTHER STATIONARY OBJECT 05/11/2018 TAM EPPERSON Ot Z79.01 SENIOR CARE (CURRENT) USE OF ANTICOAGULANT 05/11/2018 TAM EPPERSON [...] OTH DRUG/MEDS/BIOL SUB 05/11/2018 TAM EPPERSON Ot Z91.041 RADIOGRAPHIC DYE ALLERGY STATUS 05/12/2018 [...] FALL FROM MOVING WHEELCHAIR (POWERED), I 05/13/2018 ROUSE, PETER J LIVING MANAGER Ot W22.09XA STRIKING AGAINST OTHER STATIONARY OBJECT 05/13/2018 PRIYA ROUSE LIVING MANAGER Ot Z79.01 SENIOR CARE (CURRENT) USE OF ANTICOAGULANT 05/13/2018 PRIYA ROUSE LIVING MANAGER Ot Z86.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 05/13/2018 PRIYA ROUSE LIVING MANAGER Ot Z88.0 ALLERGY STATUS TO PENICILLIN 05/13/2018 PRIYA ROUSE LIVING MANAGER Ot Z88.1 ALLERGY STATUS TO OTHER ANTIBIOTIC AGENT 05/13/2018 PRIYA ROUSE LIVING MANAGER Ot Z88.2 ALLERGY STATUS TO SULFONAMIDES STATUS 05/13/2018 PRIYA ROUSE LIVING MANAGER Ot Z88.4 ALLERGY STATUS TO ANESTHETIC AGENT STATU 05/13/2018 PRIYA ROUSE LIVING MANAGER Ot Z88.5 ALLERGY STATUS TO NARCOTIC AGENT STATUS 05/13/2018 PRIYA ROUSE LIVING MANAGER Ot Z88.6 ALLERGY STATUS TO ANALGESIC AGENT STATUS 05/13/2018 PRIYA ROUSE LIVING MANAGER Ot Z88.8 ALLERGY STATUS TO OTH DRUG/MEDS/BIOL SUB 05/13/2018 ZHOU TAM Ot E03.9 HYPOTHYROIDISM, UNSPECIFIED 05/13/2018 ZHOU TAM Ot E11.9 TYPE 2 DIABETES MELLITUS WITHOUT COMPLIC 05/13/2018 ZHOU TAM Ot E78.00 PURE HYPERCHOLESTEROLEMIA, UNSPECIFIED 05/13/2018 BERNMARIE TAM Ot F32.9 MAJOR DEPRESSIVE DISORDER, SINGLE EPISOD 05/13/2018 ZHOU TAM Ot F41.9 ANXIETY DISORDER, UNSPECIFIED 05/13/2018 ZHOU TAM Ot G43.909 MIGRAINE, UNSP, NOT INTRACTABLE, WITHOUT 05/13/2018 ZHOU TAM Ot I10 ESSENTIAL (PRIMARY) HYPERTENSION 05/13/2018 BERNMARIE TAM Ot K21.9 GASTRO-ESOPHAGEAL REFLUX DISEASE WITHOUT 05/13/2018 ZHOU TAM Ot M54.2 CERVICALGIA 05/13/2018 ZHOU TAM Ot S13.4XXA SPRAIN OF LIGAMENTS OF CERVICAL SPINE, I 05/13/2018 BLESSING EPPERSONIS Ot W19.XXXA UNSPECIFIED FALL, INITIAL ENCOUNTER 05/13/2018 BLESSING EPPERSONIS Ot W22.09XA STRIKING AGAINST OTHER STATIONARY OBJECT 05/13/2018 TAM EPPERSON Ot Z79.01 TENANT COORDINATOR (CURRENT) USE OF ANTICOAGULANT 05/13/2018 TAM EPPERSON Ot Z86.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 05/13/2018 BERNBLESSING SALAZARIS Ot Z88.0 ALLERGY STATUS TO PENICILLIN 05/13/2018 BERNBLESSING SALAZARIS Ot Z88.1 ALLERGY STATUS TO OTHER ANTIBIOTIC AGENT 05/13/2018 BERNBLESSING SALAZARIS Ot Z88.2 ALLERGY STATUS TO SULFONAMIDES STATUS 05/13/2018 BELSSING EPPERSONIS Ot Z88.4 ALLERGY STATUS TO ANESTHETIC AGENT STATU 05/13/2018 BLESSING EPPERSONIS Ot Z88.5 ALLERGY STATUS TO NARCOTIC AGENT STATUS 05/13/2018 BLESSING EPPERSONIS Ot Z88.8 ALLERGY STATUS TO [...] TO NARCOTIC AGENT STATUS 05/14/2018 PRIYA ROUSE APRN Ot Z88.6 ALLERGY STATUS TO ANALGESIC AGENT STATUS 05/14/2018 PRIYA ROUSE APRN Ot Z88.8 ALLERGY STATUS TO OTH DRUG/MEDS/BIOL SUB 05/14/2018 PRIYA ROUSE APRN Ot Z91.041 RADIOGRAPHIC DYE ALLERGY STATUS 05/18/2018 PRIYA ROUSE APRN Ot E03.9 HYPOTHYROIDISM, UNSPECIFIED 05/18/2018 PRIYA ROUSE APRN Ot E11.9 TYPE 2 DIABETES MELLITUS WITHOUT COMPLIC 05/18/2018 PRIYA ROUSE APRN Ot E78.00 PURE HYPERCHOLESTEROLEMIA, UNSPECIFIED 05/18/2018 PRIYA ROUSE APRN Ot F17.200 NICOTINE DEPENDENCE, UNSPECIFIED, UNCOMP 05/18/2018 PRIYA ROUSE APRN Ot F31.9 BIPOLAR DISORDER, UNSPECIFIED 05/18/2018 PRIYA ROUSE APRN Ot F41.9 ANXIETY DISORDER, UNSPECIFIED 05/18/2018 PRIYA ROUSE APRN Ot G43.909 MIGRAINE, UNSP, NOT INTRACTABLE, WITHOUT 05/18/2018 PRIYA ROUSE APRN Ot I10 ESSENTIAL (PRIMARY) HYPERTENSION 05/18/2018 PRIYA ROUSE APRN Ot K21.9 GASTRO-ESOPHAGEAL REFLUX DISEASE WITHOUT 05/18/2018 PRIYA ROUSE APRN Ot R07.89 OTHER CHEST PAIN 05/18/2018 PRIYA ROUSE APRN Ot Z86.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 05/18/2018 PRIYA ROUSE APRN Ot Z88.0 ALLERGY STATUS TO PENICILLIN 05/18/2018 PRIYA ROUSE APRN Ot Z88.1 ALLERGY STATUS [...] 2 DIABETES MELLITUS WITHOUT COMPLIC 06/02/2018 PRIYA ROUSE APRN Ot E78.00 PURE HYPERCHOLESTEROLEMIA, UNSPECIFIED 06/02/2018 [...] ALLERGY STATUS TO PENICILLIN 06/02/2018 PRIYA ROUSE LIVING MANAGER Ot Z88.1 ALLERGY STATUS TO OTHER ANTIBIOTIC AGENT 06/02/2018 PRIYA ROUSE LIVING MANAGER Ot Z88.2 ALLERGY STATUS TO SULFONAMIDES STATUS 06/02/2018 PRIYA ROUSE APRN Ot Z88.4 ALLERGY STATUS TO ANESTHETIC AGENT STATU 06/02/2018 PRIYA ROUSE APRN Ot Z88.5 ALLERGY STATUS TO NARCOTIC AGENT STATUS 06/02/2018 PRIYA ROUSE APRN Ot Z88.6 ALLERGY STATUS TO ANALGESIC AGENT STATUS 06/02/2018 PRIYA ROUSE APRN Ot Z88.8 ALLERGY STATUS TO OTH DRUG/MEDS/BIOL SUB 06/02/2018 PRIYA ROUSE APRN Ot Z90.710 ACQUIRED ABSENCE OF BOTH CERVIX AND UTER 06/02/2018 PRIYA ROUSE APRN Ot Z91.041 RADIOGRAPHIC DYE ALLERGY STATUS 06/02/2018 PRIYA RUOSE APRN Ot Z98.51 TUBAL LIGATION STATUS 06/08/2018 BERNMARIE, TAM Ot E03.9 HYPOTHYROIDISM, UNSPECIFIED 06/08/2018 BERNMARIE, TAM Ot E11.9 TYPE 2 DIABETES MELLITUS WITHOUT COMPLIC 06/08/2018 BERNMARIE, TAM Ot E78.00 PURE HYPERCHOLESTEROLEMIA, UNSPECIFIED 06/08/2018 BERNOT, TAM Ot F31.9 BIPOLAR DISORDER, UNSPECIFIED 06/08/2018 BERNMARIE, TAM Ot F41.9 ANXIETY DISORDER, UNSPECIFIED 06/08/2018 BERNMARIE, TAM Ot G43.909 MIGRAINE, UNSP, NOT INTRACTABLE, WITHOUT 06/08/2018 BERNOT, TAM Ot I10 ESSENTIAL (PRIMARY) HYPERTENSION 06/08/2018 BERNOT, TAM Ot K21.9 GASTRO-ESOPHAGEAL REFLUX DISEASE WITHOUT 06/08/2018 BERNOT, ATM Ot R40.2142 COMA SCALE, EYES OPEN, SPONTANEOUS, EMR 06/08/2018 ZHOU, TAM Ot R40.2252 COMA SCALE, BEST VERBAL RESPONSE, ORIENT 06/08/2018 ZHOU, TAM Ot R40.2362 COMA SCALE, BEST MOTOR RESPONSE, OBEYS C 06/08/2018 ZHOU TAM Ot S09.90XA UNSPECIFIED INJURY OF HEAD, INITIAL ENCO 06/08/2018 TAM EPPERSON Ot S80.01XA CONTUSION OF RIGHT KNEE, INITIAL ENCOUNT 06/08/2018 TAM EPPERSON Ot W07.XXXA FALL FROM CHAIR, INITIAL ENCOUNTER 06/08/2018 TAM EPPERSON Ot W22.09XA STRIKING AGAINST OTHER STATIONARY OBJECT 06/08/2018 TAM EPPERSON Ot Z77.22 CNTCT W AND EXPSR TO ENVIRON TOBACCO SMO 06/08/2018 TAM EPPERSON Ot Z86.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 06/08/2018 TAM EPPERSON Ot Z88.0 ALLERGY STATUS TO PENICILLIN 06/08/2018 BLESSING EPPERSONIS Ot Z88.1 ALLERGY STATUS TO OTHER ANTIBIOTIC AGENT 06/08/2018 TAM EPPERSON Ot Z88.2 ALLERGY STATUS TO SULFONAMIDES STATUS 06/08/2018 TAM EPPERSON Ot Z88.4 ALLERGY STATUS TO ANESTHETIC AGENT STATU 06/08/2018 TAM EPPERSON Ot Z88.5 ALLERGY STATUS TO NARCOTIC AGENT STATUS 06/08/2018 TAM EPPERSON Ot Z88.6 ALLERGY STATUS TO ANALGESIC AGENT STATUS 06/08/2018 TAM EPPERSON Ot Z88.8 ALLERGY STATUS TO OTH DRUG/MEDS/BIOL SUB 06/08/2018 BLESSING EPPERSONIS Ot Z90.710 ACQUIRED ABSENCE OF BOTH CERVIX AND UTER 06/08/2018 TAM EPPERSON Ot Z91.041 RADIOGRAPHIC DYE ALLERGY STATUS 06/08/2018 BLESSING EPPERSONIS Ot Z98.51 TUBAL LIGATION STATUS 06/10/2018 BLESSING EPPERSONIS Ot E03.9 HYPOTHYROIDISM, UNSPECIFIED 06/10/2018 BLESSING EPPERSONIS Ot E11.9 TYPE 2 DIABETES MELLITUS WITHOUT COMPLIC 06/10/2018 ZHOU TAM Ot E78.00 PURE HYPERCHOLESTEROLEMIA, UNSPECIFIED 06/10/2018 ZHOU TAM Ot F31.9 BIPOLAR DISORDER, UNSPECIFIED 06/10/2018 BLESSING EPPERSONIS Ot F41.9 ANXIETY DISORDER, UNSPECIFIED 06/10/2018 ZHOU TAM Ot G43.909 MIGRAINE, UNSP, NOT INTRACTABLE, WITHOUT 06/10/2018 ZHOU TAM Ot I10 ESSENTIAL (PRIMARY) HYPERTENSION 06/10/2018 ZHOU TAM Ot K21.9 GASTRO-ESOPHAGEAL REFLUX DISEASE WITHOUT 06/10/2018 ZHOU ATM Ot R40.2142 COMA SCALE, EYES OPEN, SPONTANEOUS, EMR 06/10/2018 BLESSING EPPERSONIS Ot R40.2252 COMA SCALE, BEST VERBAL RESPONSE, ORIENT 06/10/2018 ZHOU TAM Ot R40.2362 COMA SCALE, BEST MOTOR RESPONSE, OBEYS C 06/10/2018 ZHOU TAM Ot S09.90XA UNSPECIFIED INJURY OF HEAD, INITIAL [...] ALLERGY STATUS TO OTHER ANTIBIOTIC AGENT 06/10/2018 BLESSING EPPERSONIS Ot Z88.2 ALLERGY STATUS TO SULFONAMIDES STATUS [...] EPPERSON Ot Z98.51 TUBAL LIGATION STATUS 06/18/2018 PIERRE DE LA VEGA MD Ot E11.9 [...] MD Ot I25.10 ATHSCL HEART DISEASE OF [place] CORONARY 06/20/2018 PIERRE DE LA VEGA MD [...] SMO 06/21/2018 PRIYA ROUSE APRN Ot Z79.01 TENANT COORDINATOR (CURRENT) USE OF ANTICOAGULANT 06/21/2018 PRIYA ROUSE [...] Ot E03.9 HYPOTHYROIDISM, UNSPECIFIED 06/24/2018 PRIYA ROUSE LIVING MANAGER Ot E11.9 TYPE 2 DIABETES MELLITUS WITHOUT COMPLIC 06/24/2018 PRIYA ROUSE APRN Ot E78.00 PURE HYPERCHOLESTEROLEMIA, UNSPECIFIED 06/24/2018 PRIYA ROUSE APRN Ot F31.9 BIPOLAR DISORDER, UNSPECIFIED 06/24/2018 PRIYA ROUSE APRN Ot F41.9 ANXIETY DISORDER, UNSPECIFIED 06/24/2018 PRIYA ROUSE APRN Ot G43.909 MIGRAINE, UNSP, NOT INTRACTABLE, WITHOUT 06/24/2018 PRIYA ROUSE LIVING MANAGER Ot I10 ESSENTIAL (PRIMARY) HYPERTENSION 06/24/2018 PRIYA ROUSE APRN Ot K21.9 GASTRO-ESOPHAGEAL REFLUX DISEASE WITHOUT 06/24/2018 PRIYA ROUSE APRN Ot R07.9 CHEST PAIN, UNSPECIFIED 06/24/2018 PRIYA ROUSE APRN Ot Z77.22 CNTCT W AND EXPSR TO ENVIRON TOBACCO SMO 06/24/2018 PRIYA ROUSE APRN Ot Z79.01 SENIOR CARE (CURRENT) USE OF ANTICOAGULANT 06/24/2018 PRIYA ROUSE [...] APRN Ot Z98.890 OTHER SPECIFIED POSTPROCEDURAL STATES 06/26/2018 PERFECTO MARVIN Ot E03.9 HYPOTHYROIDISM, UNSPECIFIED 06/26/2018 PERFECTO MARVIN Ot E11.9 TYPE 2 DIABETES MELLITUS WITHOUT COMPLIC 06/26/2018 PERFECTO MARVIN Ot E78.00 PURE HYPERCHOLESTEROLEMIA, UNSPECIFIED 06/26/2018 PERFECTO MARVIN Ot F17.210 NICOTINE DEPENDENCE, CIGARETTES, UNCOMPL 06/26/2018 PERFECTO MARVIN Ot F32.9 MAJOR DEPRESSIVE DISORDER, SINGLE EPISOD 06/26/2018 PERFECTO MARVIN Ot F41.9 ANXIETY DISORDER, UNSPECIFIED 06/26/2018 PERFECTO MARVIN Ot G43.909 MIGRAINE, UNSP, NOT INTRACTABLE, WITHOUT 06/26/2018 PERFECTO MARVIN Ot I10 ESSENTIAL (PRIMARY) HYPERTENSION 06/26/2018 PERFECTO MARVIN Ot K21.9 GASTRO-ESOPHAGEAL REFLUX DISEASE WITHOUT 06/26/2018 PERFECTO MARVIN Ot M54.5 LOW BACK PAIN 06/26/2018 PERFECTO MARVIN Ot S09.90XA UNSPECIFIED INJURY OF HEAD, INITIAL ENCO 06/26/2018 PERFECTO MARVIN Ot W07.XXXA FALL FROM CHAIR, INITIAL ENCOUNTER 06/26/2018 PERFECTO MARVIN Ot Z79.01 TENANT COORDINATOR (CURRENT) USE OF ANTICOAGULANT 06/26/2018 PERFECTO MARVIN Ot Z86.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 06/26/2018 PERFECTO MARVIN Ot Z88.0 ALLERGY STATUS TO PENICILLIN 06/26/2018 PERFECTO MARVIN Ot Z88.1 ALLERGY STATUS TO OTHER ANTIBIOTIC AGENT 06/26/2018 PERFECTO MARVIN Ot Z88.2 ALLERGY STATUS TO SULFONAMIDES STATUS 06/26/2018 PERFECTO MARVIN Ot Z88.4 ALLERGY STATUS TO ANESTHETIC AGENT STATU 06/26/2018 PERFECTO MARVIN Ot Z88.5 ALLERGY STATUS TO NARCOTIC AGENT STATUS 06/26/2018 PERFECTO MARVIN Ot Z88.8 ALLERGY STATUS TO OTH DRUG/MEDS/BIOL SUB 06/26/2018 PERFECTO MARVIN Ot Z90.710 ACQUIRED ABSENCE OF BOTH CERVIX AND UTER 06/26/2018 PERFECTO MARVIN Ot Z91.041 RADIOGRAPHIC DYE ALLERGY STATUS 06/26/2018 PERFECTO MARVIN Ot Z98.51 TUBAL LIGATION STATUS 06/29/2018 PRIYA ROUSE APRN Ot E03.9 HYPOTHYROIDISM, UNSPECIFIED 06/29/2018 PRIYA ROUSE APRN Ot E11.9 TYPE 2 DIABETES MELLITUS WITHOUT COMPLIC 06/29/2018 ROUSE, PETER J LIVING MANAGER Ot E78.00 PURE HYPERCHOLESTEROLEMIA, UNSPECIFIED 06/29/2018 PRIYA ROUSE APRN Ot F31.9 BIPOLAR DISORDER, UNSPECIFIED 06/29/2018 PRIYA ROUSE APRN Ot F41.9 ANXIETY DISORDER, UNSPECIFIED 06/29/2018 PRIYA ROUSE APRN Ot G43.909 MIGRAINE, UNSP, NOT INTRACTABLE, WITHOUT 06/29/2018 PRIYA ORUSE APRN Ot I10 ESSENTIAL (PRIMARY) HYPERTENSION 06/29/2018 PRIYA ROUSE APRN Ot J42 UNSPECIFIED CHRONIC BRONCHITIS 06/29/2018 PRIYA ROUSE APRN Ot K21.9 GASTRO-ESOPHAGEAL REFLUX DISEASE WITHOUT 06/29/2018 PRIYA ROUSE APRN Ot N39.0 URINARY TRACT INFECTION, SITE NOT SPECIF 06/29/2018 PRIYA ROUSE APRN Ot R07.89 OTHER CHEST PAIN 06/29/2018 PRIYA ROUSE APRN Ot Z86.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 06/29/2018 PRIYA ROUSE APRN Ot Z88.0 ALLERGY STATUS TO PENICILLIN 06/29/2018 PRIYA ROUSE APRN Ot Z88.1 ALLERGY STATUS TO OTHER ANTIBIOTIC AGENT 06/29/2018 PRIYA ROUSE APRN Ot Z88.2 ALLERGY STATUS TO SULFONAMIDES STATUS 06/29/2018 PRIYA ROUSE APRN Ot Z88.5 ALLERGY STATUS TO NARCOTIC AGENT STATUS 06/29/2018 PRIYA ROUSE APRN Ot Z88.6 ALLERGY STATUS TO ANALGESIC AGENT STATUS 06/29/2018 PRIYA ROUSE APRN Ot Z90.710 ACQUIRED ABSENCE OF BOTH CERVIX AND UTER 06/29/2018 PRIYA ROUSE APRN Ot Z91.041 RADIOGRAPHIC DYE ALLERGY STATUS 06/29/2018 PRIYA ROUSE APRN Ot Z98.51 TUBAL LIGATION STATUS 06/29/2018 PERFECTO MARVIN Ot E03.9 HYPOTHYROIDISM, UNSPECIFIED [...] W07.XXXA FALL FROM CHAIR, INITIAL ENCOUNTER 06/29/2018 PERFECTO MARVIN Ot Z79.01 TENANT COORDINATOR (CURRENT) USE OF ANTICOAGULANT 06/29/2018 PERFECTO MARVIN [...] Ot E03.9 HYPOTHYROIDISM, UNSPECIFIED 07/01/2018 PRIYA ROUSE APRN Ot E11.9 TYPE 2 [...] INITIAL ENCOUNTER 07/02/2018 PERFECTO MARVIN Ot Z79.01 SENIOR CARE (CURRENT) USE OF ANTICOAGULANT 07/02/2018 PERFECTO MARVIN [...] LA VEGA MD Ot Z72.0 TOBACCO USE 07/10/2018 IAN GONZALEZ DO Ot E03.9 HYPOTHYROIDISM, UNSPECIFIED 07/10/2018 LISA LAROSE IAN Aundrea Ot E11.40 TYPE 2 DIABETES MELLITUS WITH DIABETIC N 07/10/2018 LISA DO IAN K Ot E66.01 MORBID (SEVERE) OBESITY DUE TO EXCESS CA 07/10/2018 LISA DO IAN Aundrea Ot E78.00 PURE HYPERCHOLESTEROLEMIA, UNSPECIFIED 07/10/2018 LISA DO IAN K Ot F17.210 NICOTINE DEPENDENCE, CIGARETTES, UNCOMPL 07/10/2018 LISA DO IAN K Ot F31.9 BIPOLAR DISORDER, UNSPECIFIED 07/10/2018 LISA IAN K Ot F41.9 ANXIETY DISORDER, UNSPECIFIED 07/10/2018 LISA IAN K Ot G43.909 MIGRAINE, UNSP, NOT INTRACTABLE, WITHOUT 07/10/2018 LISA LAROSE IAN K Ot G89.29 OTHER CHRONIC PAIN 07/10/2018 LISA LAROSE IAN K Ot I10 ESSENTIAL (PRIMARY) HYPERTENSION 07/10/2018 LISA LAROSE IAN K Ot J44.9 CHRONIC OBSTRUCTIVE PULMONARY DISEASE, U 07/10/2018 LISA LAROSE IAN K Ot K21.9 GASTRO-ESOPHAGEAL REFLUX DISEASE WITHOUT 07/10/2018 LISA LAROSE IAN K Ot M54.5 LOW BACK PAIN 07/10/2018 LISA LAROSE IAN K Ot R40.2142 COMA SCALE, EYES OPEN, SPONTANEOUS, EMR 07/10/2018 LISA LAROSE IAN K Ot R40.2252 COMA SCALE, BEST VERBAL RESPONSE, ORIENT 07/10/2018 LISA LAROSE IAN K Ot R40.2362 COMA SCALE, BE[employer]OR RESPONSE, OBEYS C 07/10/2018 LISA DO IAN Aundrea Ot S30.0XXA CONTUSION OF LOWER BACK AND PELVIS, INIT 07/10/2018 IAN GONZALEZ DO Ot W18.39XA OTHER FALL ON SAME LEVEL, INITIAL ENCOUN 07/10/2018 IAN GONZALEZ DO Ot Z68.43 BODY MASS INDEX (BMI) 50-59.9, ADULT 07/10/2018 IAN GONZALEZ DO Ot Z79.01 TENANT COORDINATOR (CURRENT) USE OF ANTICOAGULANT 07/10/2018 IAN GONZALEZ DO Ot Z86.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 07/10/2018 IAN GONZALEZ DO Ot Z87.09 PERSONAL HISTORY OF OTHER DISEASES OF TH 07/10/2018 IAN GONZALEZ DO Ot Z88.0 ALLERGY STATUS TO PENICILLIN 07/10/2018 IAN GONZALEZ DO Ot Z88.2 ALLERGY STATUS TO SULFONAMIDES STATUS 07/10/2018 IAN GONZALEZ DO Ot Z89.421 ACQUIRED ABSENCE OF OTHER RIGHT TOE(S) 07/10/2018 IAN GONZALEZ DO Ot Z90.710 ACQUIRED ABSENCE OF BOTH CERVIX AND UTER 07/10/2018 IAN GONZALEZ DO Ot Z91.81 HISTORY OF FALLING 07/10/2018 IAN GONZALEZ DO Ot Z96.651 PRESENCE OF RIGHT ARTIFICIAL KNEE JOINT 07/10/2018 IAN GONZALEZ DO Ot Z98.1 ARTHRODESIS STATUS 07/10/2018 IAN GONZALEZ DO Ot Z98.51 TUBAL LIGATION STATUS 07/14/2018 ROSI HUTCHISON DO Ot N39.0 URINARY TRACT INFECTION, SITE NOT SPECIF 07/29/2018 PIERRE DE LA VEGA MD Ot E11.9 TYPE 2 DIABETES MELLITUS WITHOUT COMPLIC 07/29/2018 PIERRE DE LA VEGA MD Ot E78.2 MIXED HYPERLIPIDEMIA 07/29/2018 PIERRE DE LA VEGA MD Ot I10 ESSENTIAL (PRIMARY) HYPERTENSION 07/29/2018 PIERRE DE LA VEGA MD Ot Z72.0 TOBACCO USE Procedures Code [place] [address] ROUTINE VENIPUNCTURE [employer] HAZ[employer] TANKER DRIVER, MARDIE A 04/03/2016 83454 COMPREHEN METABOLIC PANEL [employer] TANK[employer] DRIVER, MARDIE A 04/03/2016 85469 ASSAY OF FREE THYROXINE [employer] TANK[employer] DRIVER, MARDIE A 04/03/2016 09293 ASSAY THYROID STIM HORMONE [employer] TANK[employer] DRIVER, MARDIE A 04/03/2016 59633 COMPLETE CBC W/AUTO DIFF WBC [employer] T[employer] DRIVER, MARDIE A 04/03/2016 80900 ROUTINE VENIPUNCTURE [employer] TANKER DRIVER, MARDIE A 06/25/2016 28823 PROTHROMBIN TIME [employer] TANKER DRIVER, MARDIE A 06/25/2016 64033 ROUTINE VENIPUNCTURE [employer] TANK[employer] DRIVER, MARDIE A 07/13/2016 06426 METABOLIC PANEL TOTAL CA [employer] TANK[employer] DRIVER, MARDIE A 07/13/2016 46804 ROUTINE VENIPUN[employer]URE [employer]IVER, VALERY Guzman 03/06/2018 01608 COMPREHEN METABOLIC PANEL VALERY BOTELLO D 03/06/2018 04214 LIPID PANEL VALERY BOTELLO D 03/06/2018 61353 ASSAY CARBAMAZEPINE TOTAL VALERY BOTELLO D 03/06/2018 65730 URINALYSIS AUTO W/SCOPE VALERY BOTELLO D 03/06/2018 46433 ASSAY OF TOTAL THYROXINE ZECHARIAH STERLING VALERY D 03/06/2018 82691 ASSAY THYROID STIM HORMONE VALERY BOTELLO D 03/06/2018 72425 COMPLETE CBC W/AUTO DIFF WBC VALERY BOTELLO D 03/06/2018 49675 URINE CULTURE/COLONY COUNT VALERY BOTELLO Megan 03/06/2018 90169 ELECTROCARDIOGRAM TRACING VALERY BOTELLO D 03/06/2018 30414 EMERGENCY DEPT VISIT VALERY BOTELLO Megan 03/06/2018 Results Test Result Range COMPLETE BLOOD COUNT - 04/04/16 07:19 Platelet 250 10^3u 142-424 MPV 11.4 [place] 9.4-12.4 [place] # 0.69 10^3u 0.0-1.0 RBC 4.83 10^6u 4.04-6.13 [place] % 5.7 % 0-12 RDW 17.0 % [...] Myoglobin, serum 23.2 ng/mL 10.0-92.0 Lipase - 05/12/18 18:50 Lipase 43 U/L 8-78 Serum or [...] culture - 06/29/18 18:55 Bacterial urine culture [id number] NRG COLONY COUNT 50,000 CFU/ML NRG FTX;REPORTABLE [...] measurement (mass/volume) < ng/ mL <0.30 Complete urinalysis with reflex to culture - 07/14/18 12:50 Urine color determination YELLOW NRG Urine clarity [...] urobilinogen measurement by automated test strip (mass/volume) NORMAL NORMAL Urine leukocyte esterase detection by dipstick NEGATIVE NEGATIVE Automated urine sediment erythrocyte count by microscopy (number/high power field) NONE NRG Automated urine sediment leukocyte count by microscopy (number/high power field ) NONE NRG Bacteria detection in urine sediment by light microscopy NEGATIVE NRG Squamous epithelial cells detection in urine sediment by light microscopy 5-10 NRG Crystals detection in urine sediment by light microscopy NONE NRG Casts detection in urine sediment by light microscopy NONE NRG Mucus detection in urine sediment by light microscopy NEGATIVE NRG Complete urinalysis with reflex to culture NO NRG Encounters ACCT No. Visit Date/Time Discharge Status Pt. Type Provider Facility Loc./Unit Complaint [id number] 03/06/2018 06:30:00 03/12/2018 15:15:00 DIS Inpatient TRE GARCIA MD [facility] [id number] 03/06/2018 04:04:00 03/06/2018 06:24:00 DIS Emergency VALERY BOTELLO ER [id number] 01/27/2018 05:25:00 01/29/2018 13:00:00 DIS Inpatient TRE GARCIA MD [facility] [id number] 01/21/2018 04:30:00 01/23/2018 12:00:00 DIS Inpatient TRE GARCIA MD [facility] [id number] 07/13/2016 17:03:00 07/13/2016 17:03:00 DIS Outpatient [facility] OTHER [id number] 06/25/2016 13:51:00 06/25/2016 13:51:00 DIS Outpatient [facility] OTHER [id number] 04/03/2016 18:02:00 04/03/2016 18:02:00 DIS Outpatient [facility] OTHER [id number] 04/21/2018 15:16:00 Document Registration [id number] 03/10/2018 12:56:00 Document Registration [id number] 02/04/2018 16:41:00 Document Registration [id number] 02/05/2018 12:52:48 02/05/2018 12:52:48 DIS Outpatient [facility] U [id number] 07/14/2018 12:40:00 07/14/2018 13:31:00 DIS Outpatient ROSI HUTCHISON DO [facility] Z45.2 [id number] 07/14/2018 11:59:00 07/14/2018 11:59:00 CAN Preadmit ROSI HUTCHISON DO [facility] UTI [id number] 07/10/2018 18:36:00 07/10/2018 20:15:00 DIS Emergency IAN GONZALEZ DO [facility] ER FALL [id number] 07/02/2018 09:03:00 07/02/2018 23:59:59 CLS Outpatient PIERRE DE LA VEGA MD [facility] CARD HTN [id number] 06/29/2018 16:46:00 06/29/2018 23:59:59 CLS Emergency PRIYA ROUSE LIVING MANAGER [facility] ER CP [id number] 06/26/2018 17:59:00 06/26/2018 21:58:00 DIS Emergency PERFECTO MARVIN [facility] ER FALL [id number] 06/21/2018 18:26:00 06/21/2018 19:50:00 DIS Emergency PRIYA ROUSE LIVING MANAGER [facility] ER CP [id number] 06/18/2018 10:24:00 06/18/2018 16:15:00 DIS Outpatient PIERRE DE LA VEGA MD [facility] CATH ABN STRESS [id number] 06/16/2018 08:16:00 06/16/2018 23:59:59 CLS Outpatient PIERRE DE LA VEGA MD [facility] CARD HTN [id number] 06/08/2018 19:34:00 06/08/2018 21:20:00 DIS Emergency BERNOT, TAM [facility] ER FALL [id number] 05/30/2018 16:35:00 05/30/2018 17:56:00 DIS Emergency PRIYA ROUSE LIVING MANAGER [facility] ER FALL [id number] 05/23/2018 18:33:00 05/23/2018 19:54:00 DIS Emergency PRIYA ROUSE LIVING MANAGER [facility] ER CHEST PAIN L SIDE [id number] 05/12/2018 18:47:00 05/12/2018 22:06:00 DIS Emergency PRIYA ROUSE LIVING MANAGER [facility] ER CHEST PAIN [id number] 05/11/2018 20:56:00 05/11/2018 22:49:00 DIS Emergency BERNOT, TAM [facility] ER NECK PAIN [id number] 05/10/2018 19:09:00 05/10/2018 21:49:00 DIS Emergency PRIYA ROUSE LIVING MANAGER [facility] ER GENERAL [id number] 05/05/2018 19:57:00 05/05/2018 21:14:00 DIS Emergency TAM EPPERSON [facility] ER L KNEE PAIN [id number] 05/02/2018 20:10:00 05/03/2018 00:07:00 DIS Emergency EDEL ANTHONY MD [facility] ER CP [id number] 05/13/2014 14:35:00 05/13/2014 14:35:00 DIS Outpatient BEATRICE FRY [facility] ORTHO [id number] 04/22/2014 14:34:00 04/22/2014 14:34:00 DIS Outpatient BEATRICE FRY [facility] ORTHO [id number] 09/10/2016 00:24:00 09/10/2016 03:28:00 DIS Emergency ANDREW SULTANA [facility] ER CHEST DISCOMFORT [id number] 08/05/2016 20:05:00 08/05/2016 23:59:59 [facility] ER FALL [id number] 08/05/2016 20:05:00 08/05/2016 22:40:00 DIS Emergency MEME MILLS [facility] ER FALL [id number] 07/31/2016 19:09:00 07/31/2016 22:30:00 DIS Emergency NICK BAIN [facility] ER FALL [id number] 07/19/2016 22:07:00 07/20/2016 00:45:00 DIS Emergency BENIGNO PALACIOS [facility] ER R KNEE PAIN [id number] 07/16/2016 21:22:00 07/16/2016 22:35:00 DIS Emergency IAN BROOKS [facility] ER FALL [id number] 04/25/2016 12:21:00 04/25/2016 23:59:59 CLS Outpatient ELISEO CATHERINE [facility] NPLAB [id number] 04/18/2016 14:25:00 04/18/2016 16:05:00 DIS Emergency NICK BAIN [facility] ER BACK PAIN [id number] 04/17/2016 07:15:00 04/17/2016 08:07:00 DIS Emergency IAN BROOKS [facility] ER BACK PAIN [id number] 02/17/2018 15:52:00 Document Registration [id number] 02/17/2018 13:11:00 Document Registration [id number] 06/29/2016 22:15:00 Document Registration [id number] 03/06/2016 08:34:00 Document Registration [id number] 02/20/2016 09:23:00 Document Registration [id number] 02/06/2016 08:43:00 Document Registration [id number] 02/01/2016 09:28:00 Document Registration [id number] 01/30/2016 09:56:00 Document Registration [id number] 01/24/2016 14:29:00 Document Registration [id number] 01/18/2016 10:02:00 Document Registration [id number] 01/17/2016 09:44:00 Document Registration [id number] 01/16/2016 08:27:00 Document Registration [id number] 01/13/2016 10:10:00 Document Registration [id number] 01/09/2016 11:09:00 Document Registration [id number] 01/04/2016 08:29:00 Document Registration [id number] 01/02/2016 13:29:00 Document Registration [id number] 12/29/2015 15:42:00 Document Registration [id number] 12/06/2015 05:08:00 Document Registration [id number] 12/03/2015 21:25:00 Document Registration [id number] 11/30/2015 21:48:00 Document Registration [id number] 11/27/2015 21:00:00 Document Registration [id number] 11/25/2015 23:58:00 Document Registration [id number] 11/21/2017 06:09:00 Document Registration
--- NOTE | 2018-10-12 20:08 | Diagnostic Imaging Report ---
INDICATION: Right hip pain after fall. Comparison: 07/10/2018. TECHNIQUE: AP and frog-leg lateral views of the right hip were obtained. FINDINGS: Unchanged moderate degenerative arthritis of the right hip. No fracture. Surgical clips are present in the inguinal region that are unchanged. No abnormal soft tissue mineralizations. IMPRESSION: No acute fracture about the right hip. Dictated by: Dictated on workstation # [id number]
--- NOTE | 2018-10-12 20:11 | Diagnostic Imaging Report ---
INDICATION: Right knee pain after fall. COMPARISON: None available. TECHNIQUE: 3 views of the right knee were obtained. FINDINGS: Cemented total knee arthroplasty with patellar resurfacing. No acute periprosthetic fracture or features of loosening. No knee joint effusion. No discrete soft tissue swelling allowing for patient's large body habitus. IMPRESSION: No acute fracture about the right total knee arthroplasty. Dictated by: Dictated on workstation # [id number]
--- NOTE | 2018-10-12 20:11 | Diagnostic Imaging Report ---
PROCEDURE: CT head without contrast. TECHNIQUE: Multiple contiguous axial images were obtained through the brain without the use of intravenous contrast. INDICATION: Trauma after fall. On blood thinners. COMPARISON: 06/26/2018. FINDINGS: No hyperdense hemorrhage or space-occupying mass. No hydrocephalus or midline shift. Mineralization along the anterior aspect of the right thalamus is unchanged. Basilar cisterns are patent. No acute skull fracture. Paranasal sinuses and mastoid air cells are clear. IMPRESSION: No acute intracranial hemorrhage or other acute abnormality by CT. Dictated by: Dictated on workstation # [id number]
--- NOTE | 2018-10-12 20:27 | ED Trauma-Multisystem ---
General Chief Complaint: Trauma-Non Activation Stated Complaint: FELL Nursing Triage Note: PT TO ROOM #4 [facility]IA [facility] FROM [facility] WITH C/O FALL. A&OX4. PT REPORTS APPORX 1900 ON THIS DAY SHE WAS ATTETMPTING TO TRANSFER FROM HER RECLINER TO HER W/C WHEN SHE LOST HER BALANCE AND FELL. DENIES LOC. DENIES NECK OR BACK PAIN. REPORTS RT SIDED HEADACHE. REPORTS PAIN TO RT HIP AND KNEE. 4MM PERRLA. Source of Information: Patient Exam Limitations: No Limitations History of Present Illness Date Seen by Provider: Oct 12, 2018 Time Seen by Provider: 19:20 Initial Comments 62-year-old female who presents to the emergency room by [facility] from [facility] after she fell while transferring from her recliner to her wheelchair. She reports that her feet slipped out from under her causing her to fall striking her head on the floor landing on her right hip right knee. She complains of right-sided for head, right hip knee pain. She is alert and oriented on arrival to the emergency room. She denies neck pain or tenderness. Denies loss of consciousness. Allergies and Home Medications Allergies Coded Allergies: Cephalosporins (Verified Allergy, Unknown, 05/02/18) Penicillins (Verified Allergy, Unknown, 05/02/18) Sulfa (Sulfonamide Antibiotics) (Verified Allergy, Unknown, 05/02/18) aspirin (Verified Allergy, Unknown, 05/12/18) cephalexin (Verified Allergy, Unknown, 05/02/18) codeine (Verified Allergy, Unknown, 05/02/18) diphenhydramine (Verified Allergy, Unknown, 05/02/18) erythromycin base (Verified Allergy, Unknown, 05/02/18) iodine (Verified Allergy, Unknown, 05/02/18) ketorolac (Verified Allergy, Unknown, 05/02/18) morphine (Verified Allergy, Unknown, 05/02/18) propoxyphene (Verified Allergy, Unknown, 05/02/18) tetracycline (Verified Allergy, Unknown, 05/02/18) Home Medications Carvedilol 6.25 Mg Tablet, 6.25 MG PO BID, (Reported) HOLD FOR SBP<100 OR PULSE <60 Ciprofloxacin HCl 500 Mg Tablet, 500 MG PO BID, (Reported) 7 DAY THERAPY START DATE 06-12-18 END DATE 06-19-18 Ciprofloxacin HCl 500 Mg Tablet, 500 MG PO BID Prescribed by: PRIYA ROUSE on 06/29/181923 Clonazepam 0.25 Mg Tab.rapdis, 0.25 MG PO BID, (Reported) Cranberry Extract 500 Mg Tablet, 1,000 MG PO BID, (Reported) Diclofenac Sodium 100 Gm Gel..gram., 4 GM TP Q8H PRN for KNEE PAIN, (Reported) Divalproex Sodium 500 Mg Tab.er.24h, 500 MG PO HS, (Reported) Duloxetine HCl 60 Mg Capsule.dr, 60 MG PO BID, (Reported) Gabapentin 600 Mg Tablet, 600 MG PO BID, (Reported) Hydrocodone Bitartrate 20 Mg Tab.er.24h, 20 MG PO DAILY PRN for CHRONIC PAIN, ( Reported) Hydroxyzine HCl 25 Mg Tablet, 25 MG PO BID, (Reported) Levothyroxine Sodium 200 Mcg Tablet, 200 MCG PO DAILY, (Reported) Mag Hydrox/Al Hydrox/Simeth 30 Ml Oral.susp, 30 ML PO Q4H PRN for INDIGESTION, ( Reported) Montelukast Sodium 10 Mg Tablet, 10 MG PO HS, (Reported) Olanzapine 10 Mg Tablet, 10 MG PO HS, (Reported) Omeprazole 20 Mg Capsule.dr, 20 MG PO BID, (Reported) Rivaroxaban 20 Mg Tablet, 20 MG PO HS, (Reported) Rosuvastatin Calcium 20 Mg Tablet, 20 MG PO HS, (Reported) Saccharomyces Boulardii 250 Mg Capsule, 250 MG PO BID, (Reported) Topiramate 100 Mg Tablet, 100 MG PO BID, (Reported) Past Mssamrt-Wtvheg-Ecymaz Hx Patient Social History Type Used: Cigarettes 2nd Hand Smoke Exposure: Yes Recent Foreign Travel: No Contact w/Someone Who Travel: No Recent Infectious Disease Expo: No Recent Hopitalizations: No Immunizations Up To Date Tetanus Booster (TDap): Unknown Date of Pneumonia Vaccine: May 04, 2009 Seasonal Allergies Seasonal Allergies: Yes Past Medical History Surgeries: Yes Amputation, Hysterectomy, Joint Replacement, Oophorectomy, Orthopedic, Tubal Ligation Respiratory: Yes Chronic Bronchitis, COPD Currently Using CPAP: Yes (WITH O2) Cardiac: Yes (DVT-LEG) Chronic Edema/Swelling, Deep Vein Thrombosis, High Cholesterol, Hypertension Neurological: Yes (PERIPHEARL NEUROPATHY) Headaches /Migraines, 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 0.0oz. 149.850142yf; 50.4 BMI Method:Stated Progress/Results/Core Measures Results/Orders My Orders Orders - TAM EPPERSON Ct Head Wo (10/12/18 19:20) Hip, Right, 2 Views (10/12/18 19:20) Knee, Right, 3 Views (10/12/18 19:20) Vital Signs/I&O 10/12/18 19:16 Temp 97.2 Pulse 80 Resp 18 B/P (MAP) 131/74 (93) Pulse Ox 95 O2 Delivery Room Air Blood Pressure Mean: 93 Departure Impression Primary Impression: Minor head injury without loss of consciousness Additional Impressions: Contusion of right hip Contusion of right knee Disposition: 01 HOME, SELF-CARE Condition: Stable/Unchanged Departure-Patient Inst. Decision time for Depature: 20:26 Referrals: ROSI HUTCHISON DO (PCP/Family) Primary Care Physician Patient Instructions: Contusion (DC), Minor Head Injury (DC) Add. Discharge Instructions: You may use ibuprofen and Tylenol by the bottle for pain relief. You may also use your tramadol from home. Follow-up with Dr. Hutchison within 1 week for recheck. Return back to the emergency room for worsening symptoms or concerns as needed. All discharge instructions reviewed with patient and/or family. Voiced understanding. TAM EPPERSON Oct 12, 2018 20:27
[2018-10-12 21:56] VITALS: BP 131/74
--- NOTE | 2018-10-12 21:58 | NUR ---
calling a cab for patient. discharge instructions reviewed.
== END 2018-10-12 21:58 | disposition home or self-care (01) ==
LOC: EDUNIT# 19:14 → ER 19:15
DX: S09.90XA Unspecified injury of head, initial encounter (principal); S70.01XA Contusion of right hip, initial encounter; S80.01XA Contusion of right knee, initial encounter; J44.9 Chronic obstructive pulmonary disease, unspecified; I10 Essential (primary) hypertension; E78.00 Pure hypercholesterolemia, unspecified; G43.909 Migraine, unspecified, not intractable, without status migrainosus; K21.9 Gastro-esophageal reflux disease without esophagitis; E03.9 Hypothyroidism, unspecified; E11.42 Type 2 diabetes mellitus with diabetic polyneuropathy; F31.9 Bipolar disorder, unspecified; F32.9 Major depressive disorder, single episode, unspecified; Z86.718 Personal history of other venous thrombosis and embolism; Z88.1 Allergy status to other antibiotic agents; Z88.0 Allergy status to penicillin; Z88.2 Allergy status to sulfonamides; Z88.6 Allergy status to analgesic agent; Z88.5 Allergy status to narcotic agent; Z91.041 Radiographic dye allergy status; Z88.8 Allergy status to other drugs, medicaments and biological substances; Z77.22 Contact with and (suspected) exposure to environmental tobacco smoke (acute) (chronic); Z90.710 Acquired absence of both cervix and uterus; Z98.51 Tubal ligation status; W01.198A Fall on same level from slipping, tripping and stumbling with subsequent striking against other object, initial encounter
CPT/HCPCS: 70450; 73502; 73562

== ENCOUNTER → 2018-12-04 | Outpatient (CLI) | payer MEDICARE, MEDICAID ==
[~2018-12-04] MED LIST changes: -RIVA20TA PO; +RIVA20TA2 PO
== END ==
LOC: RAD 08:46
PROVIDERS: ATTEND Otolaryngology Otolaryngology/Facial Plastic Surgery
DX: J32.9 Chronic sinusitis, unspecified (principal); Z98.890 Other specified postprocedural states; Z53.8 Procedure and treatment not carried out for other reasons

== ENCOUNTER 2019-01-02 05:38 | Outpatient (CLI) | payer MEDICARE, MEDICAID ==
[~2019-01-02] VITALS: Ht 165.1 cm; Wt 158.8 kg
[2019-01-02] MEDS ORDERED: RT-ALBUINH IH (13:04)
[2019-01-02] MEDS ORDERED: DULA0.75 SQ (13:04)
[2019-01-02] MEDS ORDERED: LEVO112T55 PO (13:04)
[2019-01-02] MEDS ORDERED: TRAM50TA2 PO (13:04)
[2019-01-02] MEDS ORDERED: GABA-488 PO (13:04)
== END 2019-01-02 13:05 | disposition home or self-care (01) ==
LOC: PREOP 05:38
PROVIDERS: ATTEND Surgery
DX: Z01.818 Encounter for other preprocedural examination (principal)

== ENCOUNTER 2019-01-07 12:12 | Day surgery (SDC) | payer MEDICARE, MEDICAID ==
[~2019-01-07] VITALS: Ht 165.1 cm; Wt 158.8 kg
[~2019-01-07 12:12] MED LIST changes: +DULA0.75 SQ; +GABA-488 PO; +LEVO112T55 PO; +RT-ALBUINH IH; +TRAM50TA2 PO
[2019-01-07] MEDS ORDERED: NS IV 500 ML 500 ML IV PRN (12:33)
--- NOTE | 2019-01-07 12:43 | Conscious Sedation/ASA ---
Conscious Sedation Pre-Proced Time 11:00 ASA Score 2 For ASA 3 and 4: Consider anesthesia and medical clearance. Also, for patients with a history of failed moderate sedation consider anesthesia. Airway Lungs Heart ASA score ASA 1: a normal healthy patient ASA 2: a patient with a mild systemic disease (mid diabetes, controlled hypertension, obesity ASA 3: a patient with a severe systemic disease that limits activity (angina , COPD, prior Myocardial infarction) ASA 4: a patient with an incapacitating disease that is a constant threat to life (CHF, renal failure) ASA 5: a moribund patient not expected to survive 24 hrs. (ruptured aneurysm) ASA 6: a declared brain- patient whose organs are being harvested. For emergent operations, add the letter E after the classification Mallampati Classification Grade 2 Sedation Plan Analgesia, Amnesia, Plan communicated to team members, Discussed options with patient/fam, Discussed risks with patient/fam The patient is an appropriate candidate to undergo the planned procedure, sedation, and anesthesia. The patient immediately re-assessed prior to indication. JULIA GUTIÉRREZ MD January 07, 2019 12:43
--- NOTE | 2019-01-07 12:43 | Progress Note-Pre Operative ---
Pre-Operative Progress Note H&P Reviewed The H&P was reviewed, patient examined and no changes noted. Date Seen by Provider: January 07, 2019 Time Seen by Provider: 11:00 Date H&P Reviewed: January 07, 2019 Time H&P Reviewed: 11:00 Pre-Operative Diagnosis: GERD, screening col JULIA GUTIÉRREZ MD January 07, 2019 12:43
[2019-01-07] MEDS ORDERED: LIDOCAINE JELLY 2% 6 ML SYRINGE MM PRN (12:45)
[2019-01-07] MEDS ORDERED: ACETAMINOPHEN 325 MG TABLET PO PRN (12:45)
[2019-01-07] MEDS ORDERED: MIDAZOLAM 2 MG/2 ML (VERSED) VIAL IVP ONE (12:45)
[2019-01-07] MEDS ORDERED: PANT40TA2 PO (12:45)
[2019-01-07] MEDS ORDERED: HYDROcodone/APAP 5 MG/325 MG (LORTAB) TAB PO PRN (12:45)
[2019-01-07] MEDS ORDERED: fentaNYL INJECTION 100 MCG/2 ML AMP IVP PRN (12:45)
[2019-01-07] MEDS ORDERED: HURRICAINE EXT TUBE (BENZOCAINE) XX PRN (12:45)
[2019-01-07] MEDS ORDERED: fentaNYL INJECTION 100 MCG/2 ML AMP IVP ONE (12:45)
[2019-01-07] MEDS ORDERED: ONDANSETRON 4 MG/2 ML (SDV) Z0FRAN IV PRN (12:45)
--- NOTE | 2019-01-07 12:46 | Discharge Inst-Surgical ---
D/C Lap Instructions-KIDO New, Converted, or Re-Newed RX: RX on Chart Follow Up Activity as tolerated High Fiber Diet 25g or more per day Avoid Alcohol, Caffeine, Spicy [place] and Acid foods. Drink 64 fluid oz or more of fluids per day. Symptoms to Report: Fever over 101 degree F, Nausea/Vomiting If any problems/questions: Contact your physician or go to Emergency Room JULIA GUTIÉRREZ MD January 07, 2019 12:46
[2019-01-07] MEDS ORDERED: NS IV 500 ML 500 ML ONE (12:49)
[2019-01-07] MEDS ORDERED: HURRICAINE EXT TUBE (BENZOCAINE) ONE (13:30)
[2019-01-07] MEDS ORDERED: LIDOCAINE JELLY 2% 6 ML SYRINGE ONE (13:30)
--- OUTSIDE RECORDS SUMMARY | 2019-01-07 13:31 | XMS REPORT | Continuity of Care Document ---
Author Organization Unknown Address Unknown Allergies Active Description Code Type Severity Reaction Onset Reported/Identified Relationship to Patient Clinical Status Yes aspirin [id number] Drug Unknown N/A Yes banana Food Unknown N/A Yes cephalexin [id number] Drug Unknown N/A Yes codeine a94284 Drug Unknown N/A Yes diphenhydrAMINE a98875 Drug Unknown N/A Yes erythromycin base e19269 Drug Unknown N/A Yes Fish Food Unknown N/A Yes iodine w28592 Other Unknown N/A Yes ketorolac v17861 Drug Unknown N/A Yes Latex Environment Unknown N/A Yes Milk Products Food Unknown N/A Yes morphine n95259 Drug Unknown N/A Yes Mushroom Food Unknown N/A Yes oxyCODONE f26924 Drug Unknown N/A Yes penicillin t40789 Drug Unknown N/A Yes propoxyphene d92837 Drug Unknown N/A Yes sulfonamides Drug Unknown N/A Yes tetracycline i25426 Drug Unknown N/A Yes ASPIRIN 1191 Drug Allergy N/A N/A Yes BENADRYL [id number] Drug Allergy N/A N/A Yes CEPHALOSPORINS Drug Allergy N /A N/A Yes CODEINE Drug Allergy N/A N/A Yes DARVON 684932 Drug Allergy N/A N/A Yes ERYTHROMYCIN [id number] Drug Allergy N/A N/A Yes IODINE 5933 Drug Allergy N/A N/A Yes KEFLEX [id number] Drug Allergy N/A N/A Yes MORPHINE Drug Allergy N/A N/A Yes PENICILLINS Drug Allergy N/A N/A Yes SULFA ANTIBIOTICS Drug Allergy N/A N/A Yes TETRACYCLINE 25074 Drug Allergy N/A N/A Yes TORADOL 606492 Drug Allergy N/ A N/A Yes ASPIRIN 1191 Drug Allergy N/A N/A Yes BENADRYL [id number] Drug Allergy N/A N/A Yes DARUNAVIR-COBICISTAT 6081583 Drug Allergy N/A N/A Yes DARZALEX 24342378153 Drug Allergy N/A N/A Yes ERYTHROMYCIN 74759360955 Drug Allergy N/A N/A Yes IODINE 5933 Drug Allergy N/A N/A Yes KEFLEX 52457968129 Drug Allergy N/A N/A Yes MORPHINE SULFATE 29444620869 Drug Allergy N/A N/A Yes PENICILLIN Drug Allergy N/A N/A Yes PERCOCET 73499647672 Drug Allergy N/A N/A Yes SULFA Drug Allergy N/A N/A Yes SUPRAX 55858463874 Drug Allergy N/A N/A Yes TETRACYCLINE HCL 95688351774 Drug Allergy N/A N/A Yes TORODOL Drug Allergy N/A N/A Yes aspirin [id number] Drug Allergy Unknown N/A 11/26/2015 Yes codeine N341095597 Drug Allergy Unknown N/A 11/26/2015 Yes diphenhydramine V237754800 Drug Allergy Unknown N/A 11/26/2015 Yes erythromycin base O385157213 Drug Allergy Unknown N/A 11/26/2015 Yes ketorolac T338472003 Drug Allergy Unknown N/A 11/26/2015 Yes morphine W671194834 Drug Allergy Unknown N/A 11/26/2015 Yes tetracycline X632964471 Drug Allergy Unknown N/A 11/26/2015 Yes Cephalosporins R341190342 Drug Allergy Unknown N/A 12/06/2015 Yes Iodine and Iodide Containing Produc W826858992 Drug Allergy Unknown N/A 07/2016 Yes Penicillins S262004095 Drug Allergy Unknown N/A 12/06/2015 Yes Sulfa (Sulfonamide Antibiotics) Q579230414 Drug Allergy Unknown N/A 2015 Yes cephalexin U335368149 Drug Allergy Unknown N/A 05/02/2018 Yes Cephalosporins N308798975 Drug Allergy Unknown N/A 05/02/2018 Yes codeine U687621746 Drug Allergy Unknown N/A 05/02/2018 Yes diphenhydramine R867713779 Drug Allergy Unknown N/A 05/02/2018 Yes erythromycin base M902224211 Drug Allergy Unknown N/A 05/02/2018 Yes iodine R432924465 Drug Allergy Unknown N/A 05/02/2018 Yes morphine T776886188 Drug Allergy Unknown N/A 05/02/2018 Yes Penicillins K649932755 Drug Allergy Unknown N/A 05/02/2018 Yes propoxyphene Q706547952 Drug Allergy Unknown N/A 05/02/2018 Yes Sulfa (Sulfonamide Antibiotics) S560823109 Drug Allergy Unknown N/A 2017 Yes tetracycline N527183910 Drug Allergy Unknown N/A 05/02/2018 Yes aspirin Y935010704 Drug Allergy Unknown N/A 05/12/2018 Yes ketorolac [id number] Drug Allergy Unknown N/A 10/12/2018 Medications Medication Packaging Start Date Stop Date Route Dosage Sig FENTANYL Transdermal 06/30/2015 07/25/2015 Transdermal 1010 every 3 days ZYRTEC ALLERGY ORAL 07/25/2015 01/22/2017 ORAL 3030 daily TYLENOL EXTRA STRENGTH ORAL 2014 ORAL 821701 every 4 hours TYLENOL ORAL 07/25/2015 ORAL 789146 every 6 hours TRAZODONE HCL ORAL 07/25/2015 [...] ORAL 3030 daily NITROSTAT Sublingual 10/24/2015 Sublingual 861213 MINTOX ORAL 10/24/2015 01/22/2017 ORAL MILK OF [...] at bedtime GABAPENTIN ORAL 02/01/2017 10/24/2017 ORAL 731313 3 times a day DIFLUCAN ORAL 02/01/2017 [...] for itching GABAPENTIN ORAL 10/24/2017 11/23/2017 ORAL 172707 3 times a day CARVEDILOL ORAL 10/24/2017 [...] Other R07.89 OTHER CHEST PAIN 04/03/2016 LONG ELISEO STERLING E03.9 Hypothyroidism, unspecified 04/03/2016 LONG ELISEO STERLING D I10 Essential (primary) hypertension 04/17/2016 IAN [...] BROOKS APRN Other Y92.[address] IN ALF PLACE 07/20/2016 BENIGNO PALACIOS Other S83.91XA SPRAIN [...] ROMERO MD Other Y92.[address] ALF PLACE 08/05/2016 MEME MILLS APRN Other M54.9 DORSALGIA, UNSPECIFIED 08/05/2016 MEME MILLS APRN Other S32.000A WEDGE COMPRESSION FRACTURE OF UNSP LUMBAR VERTEBRA, INIT 08/05/2016 MEME MILLS APRN Other W18.39XA OTHER FALL ON SAME LEVEL, INITIAL ENCOUNTER 08/05/2016 MEME MILLS APRN Other Y92.[address] OF OCCURRENCE OF THE EXTERNAL CAUSE 08/05/2016 MEME MILLS MICROBIOLOGY LAB ASSISTANT Other Z91.81 HISTORY OF FALLING 09/10/2016 ANDREW [...] UP EXTREM, BI 02/18/2018 Other Z79.899 OTHER USP (CURRENT) DRUG THERAPY 02/18/2018 Other Z79.899 OTHER USP (CURRENT) DRUG THERAPY 02/18/2018 Other Z79.01 USP (CURRENT) USE OF ANTICOAGULANTS 02/18/2018 Other E78.2 [...] (BMI) 45.0-49.9, adult 03/06/2018 VALERY BOTELLO Z79.01 long-term (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 of anticoagulants 03/06/2018 VALERY BOTELLO [...] TYPE 2 DIABETES MELLITUS WITHOUT COMPLIC 05/03/2018 CIRCLE MD, EDEL D Ot E78.00 PURE HYPERCHOLESTEROLEMIA, UNSPECIFIED 05/03/2018 EDEL [...] Ot Z91.041 RADIOGRAPHIC DYE ALLERGY STATUS 05/05/2018 TAM EPPERSON Ot E03.9 HYPOTHYROIDISM, UNSPECIFIED 05/05/2018 BLESSING EPPERSONIS Ot E11.9 TYPE 2 DIABETES MELLITUS WITHOUT COMPLIC 05/05/2018 BLESSING EPPERSONIS Ot E78.00 PURE HYPERCHOLESTEROLEMIA, UNSPECIFIED 05/05/2018 ZHOU TAM Ot F17.200 NICOTINE DEPENDENCE, UNSPECIFIED, UNCOMP 05/05/2018 BLESSING EPPERSONIS Ot F32.9 MAJOR DEPRESSIVE DISORDER, SINGLE EPISOD 05/05/2018 TAM EPPERSON Ot F41.9 ANXIETY DISORDER, UNSPECIFIED 05/05/2018 ZHOUBLESSINGIS Ot G43.909 MIGRAINE, UNSP, NOT INTRACTABLE, WITHOUT 05/05/2018 TAM EPPERSON Ot I10 ESSENTIAL (PRIMARY) HYPERTENSION 05/05/2018 TAM EPPERSON Ot K21.9 GASTRO-ESOPHAGEAL REFLUX DISEASE WITHOUT 05/05/2018 TAM EPPERSON Ot M25.562 PAIN IN LEFT KNEE 05/05/2018 TAM EPPERSON Ot W19.XXXA UNSPECIFIED FALL, INITIAL ENCOUNTER 05/05/2018 TAM EPPERSON Ot X50.1XXA OVEREXERTION FROM PROLONGED STATIC OR AW 05/05/2018 CORINETAM SALAZAR Ot Y92.[address] IN [facility] 05/05/2018 CORINETAM SALAZAR Ot Z86.718 PERSONAL HISTORY OF OTHER VENOUS [...] F41.9 ANXIETY DISORDER, UNSPECIFIED 05/08/2018 EDEL ANTHONY MD, Ot G43.909 MIGRAINE, UNSP, [...] APRN Ot R55 SYNCOPE AND COLLAPSE 05/10/2018 ROUSE, PETER J MICROBIOLOGY LAB ASSISTANT Ot S16.1XXA STRAIN OF MUSCLE, FASCIA AND TENDON AT N 05/10/2018 PRIYA ROUSE MICROBIOLOGY LAB ASSISTANT Ot V00.811A FALL FROM MOVING WHEELCHAIR (POWERED), I 05/10/2018 PRIYA ROUSE MICROBIOLOGY LAB ASSISTANT Ot W22.09XA STRIKING AGAINST OTHER STATIONARY OBJECT 05/10/2018 PRIYA ROUSE MICROBIOLOGY LAB ASSISTANT Ot Z79.01 USP (CURRENT) USE OF ANTICOAGULANT 05/10/2018 PRIYA ROUSE MICROBIOLOGY LAB ASSISTANT Ot Z86.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 05/10/2018 PRIYA ROUSE MICROBIOLOGY LAB ASSISTANT Ot Z88.0 ALLERGY STATUS TO PENICILLIN 05/10/2018 PRIYA ROUSE MICROBIOLOGY LAB ASSISTANT Ot Z88.1 ALLERGY STATUS TO OTHER ANTIBIOTIC AGENT 05/10/2018 PRIYA ROUSE APRN Ot Z88.2 ALLERGY STATUS TO SULFONAMIDES STATUS 05/10/2018 PRIYA ROUSE APRN Ot Z88.4 ALLERGY STATUS TO ANESTHETIC AGENT STATU 05/10/2018 PRIYA ROUSE APRN Ot Z88.5 ALLERGY STATUS TO NARCOTIC AGENT STATUS 05/10/2018 PRIYA ROUSE MICROBIOLOGY LAB ASSISTANT Ot Z88.6 ALLERGY STATUS TO ANALGESIC AGENT STATUS 05/10/2018 PRIYA ROUSE MICROBIOLOGY LAB ASSISTANT Ot Z88.8 ALLERGY STATUS TO OTH DRUG/MEDS/BIOL SUB 05/11/2018 ZHOU TAM Ot E03.9 HYPOTHYROIDISM, UNSPECIFIED 05/11/2018 BERNMARIE TAM Ot E11.9 TYPE 2 DIABETES MELLITUS WITHOUT COMPLIC 05/11/2018 ZHOU TAM Ot E78.00 PURE HYPERCHOLESTEROLEMIA, UNSPECIFIED 05/11/2018 ZHOU TAM Ot F32.9 MAJOR DEPRESSIVE DISORDER, SINGLE EPISOD 05/11/2018 ZHOU TAM Ot F41.9 ANXIETY DISORDER, UNSPECIFIED 05/11/2018 BERNMARIE TAM Ot G43.909 MIGRAINE, UNSP, NOT INTRACTABLE, WITHOUT 05/11/2018 BERNOT, TAM Ot I10 ESSENTIAL (PRIMARY) HYPERTENSION 05/11/2018 BERNMARIE TAM Ot K21.9 GASTRO-ESOPHAGEAL REFLUX DISEASE WITHOUT 05/11/2018 BERNMARIE TAM Ot M54.2 CERVICALGIA 05/11/2018 BLESSING EPPERSONIS Ot S13.4XXA SPRAIN OF LIGAMENTS OF CERVICAL SPINE, I 05/11/2018 TAM EPPERSON Ot W19.XXXA UNSPECIFIED FALL, INITIAL ENCOUNTER 05/11/2018 ZHOU TAM Ot W22.09XA STRIKING AGAINST OTHER STATIONARY OBJECT 05/11/2018 TAM EPPERSON Ot Z79.01 FLOW FLOOR ATTENDANT (CURRENT) USE OF ANTICOAGULANT 05/11/2018 BLESSING EPPERSONIS Ot Z86.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 05/11/2018 BLESSING EPPERSONIS Ot Z88.0 ALLERGY STATUS TO PENICILLIN 05/11/2018 BLESSING EPPERSONIS Ot Z88.1 ALLERGY STATUS TO OTHER ANTIBIOTIC AGENT 05/11/2018 BLESSING EPPERSONIS Ot Z88.2 ALLERGY STATUS TO [...] Ot F17.200 NICOTINE DEPENDENCE, UNSPECIFIED, UNCOMP 05/12/2018 PRYIA ROUSE APRN Ot F31.9 BIPOLAR DISORDER, UNSPECIFIED [...] WHEELCHAIR (POWERED), I 05/13/2018 ROUSE, PETER J MICROBIOLOGY LAB ASSISTANT Ot W22.09XA STRIKING AGAINST OTHER STATIONARY OBJECT 05/13/2018 PRIYA ROUSE MICROBIOLOGY LAB ASSISTANT Ot Z79.01 USP (CURRENT) USE OF ANTICOAGULANT 05/13/2018 PRIYA ROUSE MICROBIOLOGY LAB ASSISTANT Ot Z86.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 05/13/2018 PRIYA ROUSE MICROBIOLOGY LAB ASSISTANT Ot Z88.0 ALLERGY STATUS TO PENICILLIN 05/13/2018 PRIYA ROUSE MICROBIOLOGY LAB ASSISTANT Ot Z88.1 ALLERGY STATUS TO OTHER ANTIBIOTIC AGENT 05/13/2018 PRIYA ROUSE MICROBIOLOGY LAB ASSISTANT Ot Z88.2 ALLERGY STATUS TO SULFONAMIDES STATUS 05/13/2018 PRIYA ROUSE MICROBIOLOGY LAB ASSISTANT Ot Z88.4 ALLERGY STATUS TO ANESTHETIC AGENT STATU 05/13/2018 PRIYA ROUSE MICROBIOLOGY LAB ASSISTANT Ot Z88.5 ALLERGY STATUS TO NARCOTIC AGENT STATUS 05/13/2018 PRIYA ROUSE MICROBIOLOGY LAB ASSISTANT Ot Z88.6 ALLERGY STATUS TO ANALGESIC AGENT STATUS 05/13/2018 PRIYA ROUSE MICROBIOLOGY LAB ASSISTANT Ot Z88.8 ALLERGY STATUS TO OTH DRUG/MEDS/BIOL SUB 05/13/2018 ZHOU TAM Ot E03.9 HYPOTHYROIDISM, UNSPECIFIED 05/13/2018 BERNMARIE TAM Ot E11.9 TYPE 2 DIABETES MELLITUS WITHOUT COMPLIC 05/13/2018 BERNMARIE TAM Ot E78.00 PURE HYPERCHOLESTEROLEMIA, UNSPECIFIED 05/13/2018 BERNMARIE TAM Ot F32.9 MAJOR DEPRESSIVE DISORDER, SINGLE EPISOD 05/13/2018 BERNMARIE TAM Ot F41.9 ANXIETY DISORDER, UNSPECIFIED 05/13/2018 BERNMARIE TAM Ot G43.909 MIGRAINE, UNSP, NOT INTRACTABLE, WITHOUT 05/13/2018 ZHOU, TAM Ot I10 ESSENTIAL (PRIMARY) HYPERTENSION 05/13/2018 BERNMARIE TAM Ot K21.9 GASTRO-ESOPHAGEAL REFLUX DISEASE WITHOUT 05/13/2018 BERNMARIE TAM Ot M54.2 CERVICALGIA 05/13/2018 BERNMARIE TAM Ot S13.4XXA SPRAIN OF LIGAMENTS OF CERVICAL SPINE, I 05/13/2018 ZHOU TAM Ot W19.XXXA UNSPECIFIED FALL, INITIAL ENCOUNTER 05/13/2018 BLESSING EPPERSONIS Ot W22.09XA STRIKING AGAINST OTHER STATIONARY OBJECT 05/13/2018 TAM EPPERSON Ot Z79.01 FLOW FLOOR ATTENDANT (CURRENT) USE OF ANTICOAGULANT 05/13/2018 TAM EPPERSON Ot Z86.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 05/13/2018 TAM EPPERSON Ot Z88.0 ALLERGY STATUS TO PENICILLIN 05/13/2018 TAM EPPERSON Ot Z88.1 ALLERGY STATUS TO OTHER ANTIBIOTIC AGENT 05/13/2018 TAM EPPERSON Ot Z88.2 ALLERGY STATUS TO SULFONAMIDES STATUS 05/13/2018 TAM EPPERSON Ot Z88.4 ALLERGY STATUS TO ANESTHETIC AGENT STATU 05/13/2018 TAM EPPERSON Ot Z88.5 ALLERGY STATUS TO [...] HISTORY OF OTHER DISEASES OF TH 06/02/2018 ROUSE, PETER J MICROBIOLOGY LAB ASSISTANT Ot Z88.0 ALLERGY STATUS TO PENICILLIN 06/02/2018 PRIYA ROUSE MICROBIOLOGY LAB ASSISTANT Ot Z88.1 ALLERGY STATUS TO OTHER ANTIBIOTIC AGENT 06/02/2018 PRIYA ROUSE MICROBIOLOGY LAB ASSISTANT Ot Z88.2 ALLERGY STATUS TO SULFONAMIDES STATUS 06/02/2018 PRIYA ROUSE MICROBIOLOGY LAB ASSISTANT Ot Z88.4 ALLERGY STATUS TO ANESTHETIC AGENT STATU 06/02/2018 PRIYA ROUSE MICROBIOLOGY LAB ASSISTANT Ot Z88.5 ALLERGY STATUS TO NARCOTIC AGENT STATUS 06/02/2018 PRIYA ROUSE MICROBIOLOGY LAB ASSISTANT Ot Z88.6 ALLERGY STATUS TO ANALGESIC AGENT STATUS 06/02/2018 PRIYA ROUSE MICROBIOLOGY LAB ASSISTANT Ot Z88.8 ALLERGY STATUS TO OTH DRUG/MEDS/BIOL SUB 06/02/2018 PRIYA ROUSE APRN Ot Z90.710 ACQUIRED ABSENCE OF BOTH CERVIX AND UTER 06/02/2018 PRIYA ROUSE MICROBIOLOGY LAB ASSISTANT Ot Z91.041 RADIOGRAPHIC DYE ALLERGY STATUS 06/02/2018 PRIYA ROUSE APRN Ot Z98.51 TUBAL LIGATION STATUS 06/08/2018 TAM EPPERSON Ot E03.9 HYPOTHYROIDISM, UNSPECIFIED 06/08/2018 BERNMARIE, TAM Ot E11.9 TYPE 2 DIABETES MELLITUS WITHOUT COMPLIC 06/08/2018 ZHOU, TAM Ot E78.00 PURE HYPERCHOLESTEROLEMIA, UNSPECIFIED 06/08/2018 BERNMARIE, TAM Ot F31.9 BIPOLAR DISORDER, UNSPECIFIED 06/08/2018 ZHOU, TAM Ot F41.9 ANXIETY DISORDER, UNSPECIFIED 06/08/2018 ZHOU TAM Ot G43.909 MIGRAINE, UNSP, NOT INTRACTABLE, WITHOUT 06/08/2018 BERNOT, TAM Ot I10 ESSENTIAL (PRIMARY) HYPERTENSION 06/08/2018 ZHOU TAM Ot K21.9 GASTRO-ESOPHAGEAL REFLUX DISEASE WITHOUT 06/08/2018 BERNMARIE, TAM Ot R40.2142 COMA SCALE, EYES OPEN, SPONTANEOUS, EMR 06/08/2018 TAM EPPERSON Ot R40.2252 COMA SCALE, BEST VERBAL RESPONSE, ORIENT 06/08/2018 BLESSING EPPERSONIS Ot R40.2362 COMA SCALE, BEST MOTOR RESPONSE, [...] EPPERSONIS Ot Z98.51 TUBAL LIGATION STATUS 06/10/2018 TAM EPPERSON Ot E03.9 HYPOTHYROIDISM, UNSPECIFIED 06/10/2018 BLESSING EPPERSONIS Ot E11.9 TYPE 2 DIABETES MELLITUS WITHOUT COMPLIC 06/10/2018 BLESSING EPPERSONIS Ot E78.00 PURE HYPERCHOLESTEROLEMIA, UNSPECIFIED 06/10/2018 ZHOU TAM Ot F31.9 BIPOLAR DISORDER, UNSPECIFIED 06/10/2018 ZHOU TAM Ot F41.9 ANXIETY DISORDER, UNSPECIFIED 06/10/2018 ZHOU TAM Ot G43.909 MIGRAINE, UNSP, NOT INTRACTABLE, WITHOUT 06/10/2018 ZHOU TAM Ot I10 ESSENTIAL (PRIMARY) HYPERTENSION 06/10/2018 ZHOU TAM Ot K21.9 GASTRO-ESOPHAGEAL REFLUX DISEASE WITHOUT 06/10/2018 BLESSING EPPERSONIS Ot R40.2142 COMA SCALE, EYES OPEN, SPONTANEOUS, [...] MD Ot I25.10 ATHSCL HEART DISEASE OF [place] CORONARY 06/20/2018 PIERRE DE LA VEGA MD [...] SMO 06/21/2018 PRIYA ROUSE APRN Ot Z79.01 FLOW FLOOR ATTENDANT (CURRENT) USE OF ANTICOAGULANT 06/21/2018 PRIYA ROUSE [...] UNSP, NOT INTRACTABLE, WITHOUT 06/24/2018 PRIYA ROUSE APRN Ot I10 ESSENTIAL (PRIMARY) HYPERTENSION 06/24/2018 PRIYA ROUSE APRN Ot K21.9 GASTRO-ESOPHAGEAL REFLUX DISEASE WITHOUT 06/24/2018 PRIYA ROUSE APRN Ot R07.9 CHEST PAIN, UNSPECIFIED 06/24/2018 PRIYA ROUSE APRN Ot Z77.22 CNTCT W AND EXPSR TO ENVIRON TOBACCO SMO 06/24/2018 PRIYA ROUSE APRN Ot Z79.01 USP (CURRENT) USE OF ANTICOAGULANT 06/24/2018 PRIYA ROUSE [...] INITIAL ENCOUNTER 06/26/2018 PERFECTO MARVIN Ot Z79.01 USP (CURRENT) USE OF ANTICOAGULANT 06/26/2018 PERFECTO MARVIN [...] Ot E03.9 HYPOTHYROIDISM, UNSPECIFIED 06/29/2018 PRIYA ROUSE MICROBIOLOGY LAB ASSISTANT Ot E11.9 TYPE 2 DIABETES MELLITUS WITHOUT COMPLIC 06/29/2018 PRIYA ROUSE MICROBIOLOGY LAB ASSISTANT Ot E78.00 PURE HYPERCHOLESTEROLEMIA, UNSPECIFIED 06/29/2018 PRIYA ROUSE APRN Ot F31.9 BIPOLAR DISORDER, UNSPECIFIED 06/29/2018 PRIYA ROUSE APRN Ot F41.9 ANXIETY DISORDER, UNSPECIFIED 06/29/2018 PRIYA ROUSE APRN Ot G43.909 MIGRAINE, UNSP, NOT INTRACTABLE, WITHOUT 06/29/2018 PRIYA ROUSE APRN Ot I10 ESSENTIAL (PRIMARY) HYPERTENSION 06/29/2018 [...] INITIAL ENCOUNTER 06/29/2018 PERFECTO MARVIN Ot Z79.01 USP (CURRENT) USE OF ANTICOAGULANT 06/29/2018 PERFECTO MARVIN Ot Z86.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 06/29/2018 PERFECTO MARVIN Ot Z88.0 ALLERGY STATUS TO PENICILLIN 06/29/2018 PREFECTO MARVIN Ot Z88.1 ALLERGY STATUS TO OTHER [...] MARVIN Ot I10 ESSENTIAL (PRIMARY) HYPERTENSION 07/02/2018 PERFCETO MARVIN Ot K21.9 GASTRO-ESOPHAGEAL REFLUX DISEASE WITHOUT 07/02/2018 PERFECTO MARVIN Ot M54.5 LOW BACK PAIN 07/02/2018 PERFECTO MARVIN Ot S09.90XA UNSPECIFIED INJURY OF HEAD, INITIAL ENCO 07/02/2018 PERFECTO MARVIN Ot W07.XXXA FALL FROM CHAIR, INITIAL ENCOUNTER 07/02/2018 PERFECTO MARVIN Ot Z79.01 FLOW FLOOR ATTENDANT (CURRENT) USE OF ANTICOAGULANT 07/02/2018 PERFECTO MARVIN [...] DO Ot E03.9 HYPOTHYROIDISM, UNSPECIFIED 07/10/2018 LISA DO IAN K Ot E11.40 TYPE 2 DIABETES MELLITUS WITH DIABETIC N 07/10/2018 IAN GONZALEZ DO Ot E66.01 MORBID (SEVERE) OBESITY DUE TO EXCESS CA 07/10/2018 IAN GONZALEZ DO Ot E78.00 PURE HYPERCHOLESTEROLEMIA, UNSPECIFIED 07/10/2018 LISAIAN Huang DO Ot F17.210 NICOTINE DEPENDENCE, CIGARETTES, UNCOMPL 07/10/2018 IAN GONZALEZ DO Ot F31.9 BIPOLAR DISORDER, UNSPECIFIED 07/10/2018 LISA IAN LAROSE Ot F41.9 ANXIETY DISORDER, UNSPECIFIED 07/10/2018 LISA IAN LAROSE Ot G43.909 MIGRAINE, UNSP, NOT INTRACTABLE, WITHOUT 07/10/2018 LISAIAN Huang DO Ot G89.29 OTHER CHRONIC PAIN 07/10/2018 LISA LAROSE IAN K Ot I10 ESSENTIAL (PRIMARY) HYPERTENSION 07/10/2018 IAN GONZALEZ DO Ot J44.9 CHRONIC OBSTRUCTIVE PULMONARY DISEASE, U 07/10/2018 IAN GONZALEZ DO Ot K21.9 GASTRO-ESOPHAGEAL REFLUX DISEASE WITHOUT 07/10/2018 LISA IAN LAROSE Ot M54.5 LOW BACK PAIN 07/10/2018 IAN GONZALEZ DO Ot R40.2142 COMA SCALE, EYES OPEN, SPONTANEOUS, EMR 07/10/2018 IAN GONZALEZ DO Ot R40.2252 COMA SCALE, BEST VERBAL RESPONSE, ORIENT 07/10/2018 IAN GONZALEZ DO Ot R40.2362 COMA SCALE, BEST MOTOR RESPONSE, OBEYS C 07/10/2018 IAN GONZALEZ DO Ot S30.0XXA CONTUSION OF LOWER BACK AND PELVIS, INIT 07/10/2018 IAN GONZALEZ DO Ot W18.39XA OTHER FALL ON SAME LEVEL, INITIAL ENCOUN 07/10/2018 IAN GONZALEZ DO Ot Z68.43 BODY MASS INDEX (BMI) 50-59.9, ADULT 07/10/2018 IAN GONZALEZ DO Ot Z79.01 FLOW FLOOR ATTENDANT (CURRENT) USE OF ANTICOAGULANT 07/10/2018 IAN GONZALEZ [...] DO Ot Z98.51 TUBAL LIGATION STATUS 07/14/2018 JASBIRDOMI ROSI LAROSE Ot N39.0 URINARY TRACT INFECTION, SITE NOT SPECIF 07/29/2018 YOLETTE BAIN, PIERRE Sanchez Ot E11.9 TYPE 2 DIABETES MELLITUS WITHOUT COMPLIC 07/29/2018 YOLETTE BAIN, PIERRE Sanchez Ot E78.2 MIXED HYPERLIPIDEMIA 07/29/2018 YOLETTE BAIN, PIERRE Sanchez Ot I10 ESSENTIAL (PRIMARY) HYPERTENSION 07/29/2018 YOLETTE BAIN, PIERRE Sanchez Ot Z72.0 TOBACCO USE 10/12/2018 TAM EPPERSON Ot E03.9 HYPOTHYROIDISM, UNSPECIFIED 10/12/2018 TAM EPPERSON Ot E11.42 TYPE 2 DIABETES MELLITUS WITH DIABETIC P 10/12/2018 TAM EPPERSON Ot E78.00 PURE HYPERCHOLESTEROLEMIA, UNSPECIFIED 10/12/2018 TAM EPPERSON Ot F31.9 BIPOLAR DISORDER, UNSPECIFIED 10/12/2018 TAM EPPERSON Ot F32.9 MAJOR DEPRESSIVE DISORDER, SINGLE EPISOD 10/12/2018 TAM EPPERSON Ot G43.909 MIGRAINE, UNSP, NOT INTRACTABLE, WITHOUT 10/12/2018 TAM EPPERSON Ot I10 ESSENTIAL (PRIMARY) HYPERTENSION 10/12/2018 TAM EPPERSON Ot J44.9 CHRONIC OBSTRUCTIVE PULMONARY DISEASE, U 10/12/2018 TAM EPPERSON Ot K21.9 GASTRO-ESOPHAGEAL REFLUX DISEASE WITHOUT 10/12/2018 TAM EPPERSON Ot M25.561 PAIN IN RIGHT KNEE 10/12/2018 TAM EPPERSON Ot S09.90XA UNSPECIFIED INJURY OF HEAD, INITIAL ENCO 10/12/2018 TAM EPPERSON Ot S70.01XA CONTUSION OF RIGHT HIP, INITIAL ENCOUNTE 10/12/2018 TAM EPPERSON Ot S80.01XA CONTUSION OF RIGHT KNEE, INITIAL ENCOUNT 10/12/2018 TAM EPPERSON Ot W01.198A FALL SAME LEV FROM SLIP/TRIP W STRIKE AG 10/12/2018 TAM EPPERSON Ot Z77.22 CNTCT W AND EXPSR TO ENVIRON TOBACCO SMO 10/12/2018 TAM EPPERSON Ot Z86.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 10/12/2018 TAM EPPERSON Ot Z88.0 ALLERGY STATUS TO PENICILLIN 10/12/2018 ATM EPPERSON Ot Z88.1 ALLERGY STATUS TO OTHER ANTIBIOTIC AGENT 10/12/2018 TAM EPPERSON Ot Z88.2 ALLERGY STATUS TO SULFONAMIDES STATUS 10/12/2018 TAM EPPERSON Ot Z88.5 ALLERGY STATUS TO NARCOTIC AGENT STATUS 10/12/2018 TAM EPPERSON Ot Z88.6 ALLERGY STATUS TO ANALGESIC AGENT STATUS 10/12/2018 TAM EPPERSON Ot Z88.8 ALLERGY STATUS TO OTH DRUG/MEDS/BIOL SUB 10/12/2018 TAM EPPERSON Ot Z90.710 ACQUIRED ABSENCE OF BOTH CERVIX AND UTER 10/12/2018 TAM EPPERSON Ot Z91.041 RADIOGRAPHIC DYE ALLERGY STATUS 10/12/2018 TAM EPPERSON Ot Z98.51 TUBAL LIGATION STATUS 10/14/2018 TAM EPPERSON Ot E03.9 HYPOTHYROIDISM, UNSPECIFIED 10/14/2018 TAM EPPERSON Ot E11.42 TYPE 2 DIABETES MELLITUS WITH DIABETIC P 10/14/2018 TAM EPPERSON Ot E78.00 PURE HYPERCHOLESTEROLEMIA, UNSPECIFIED 10/14/2018 TAM EPPERSON Ot F31.9 BIPOLAR DISORDER, UNSPECIFIED 10/14/2018 TAM EPPERSON Ot F32.9 MAJOR DEPRESSIVE DISORDER, SINGLE EPISOD 10/14/2018 TAM EPPERSON Ot G43.909 MIGRAINE, UNSP, NOT INTRACTABLE, WITHOUT 10/14/2018 TAM EPPERSON Ot I10 ESSENTIAL (PRIMARY) HYPERTENSION 10/14/2018 TAM EPPERSON Ot J44.9 CHRONIC OBSTRUCTIVE PULMONARY DISEASE, U 10/14/2018 TAM EPPERSON Ot K21.9 GASTRO-ESOPHAGEAL REFLUX DISEASE WITHOUT 10/14/2018 TAM EPPERSON Ot M25.561 PAIN IN RIGHT KNEE 10/14/2018 TAM EPPERSON Ot S09.90XA UNSPECIFIED INJURY OF HEAD, INITIAL ENCO 10/14/2018 TAM EPPERSON Ot S70.01XA CONTUSION OF RIGHT HIP, INITIAL ENCOUNTE 10/14/2018 TAM EPPERSON Ot S80.01XA CONTUSION OF RIGHT KNEE, INITIAL ENCOUNT 10/14/2018 TAM EPPERSON Ot W01.198A FALL SAME LEV FROM SLIP/TRIP W STRIKE AG 10/14/2018 TAM EPPERSON Ot Z77.22 CNTCT W AND EXPSR TO ENVIRON TOBACCO SMO 10/14/2018 TAM EPPERSON Ot Z86.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 10/14/2018 TAM EPPERSON Ot Z88.0 ALLERGY STATUS TO PENICILLIN 10/14/2018 TAM EPPERSON Ot Z88.1 ALLERGY STATUS TO OTHER ANTIBIOTIC AGENT 10/14/2018 TAM EPPERSON Ot Z88.2 ALLERGY STATUS TO SULFONAMIDES STATUS 10/14/2018 TAM EPPERSON Ot Z88.5 ALLERGY STATUS TO NARCOTIC AGENT STATUS 10/14/2018 TAM EPPERSON Ot Z88.6 ALLERGY STATUS TO ANALGESIC AGENT STATUS 10/14/2018 TAM EPPERSON Ot Z88.8 ALLERGY STATUS TO OTH DRUG/MEDS/BIOL SUB 10/14/2018 TAM EPPERSON Ot Z90.710 ACQUIRED ABSENCE OF BOTH CERVIX AND UTER 10/14/2018 TAM EPPERSON Ot Z91.041 RADIOGRAPHIC DYE ALLERGY STATUS 10/14/2018 TAM EPPERSON Ot Z98.51 TUBAL LIGATION STATUS 12/05/2018 ANAMARIA PACK MD Ot J32.9 CHRONIC SINUSITIS, UNSPECIFIED 12/05/2018 ANAMARIA PACK MD Ot Z53.8 PROCEDURE AND TREATMENT NOT CARRIED OUT 12/05/2018 ANAMARIA PACK MD Ot Z98.890 OTHER SPECIFIED POSTPROCEDURAL STATES 01/02/2019 JULIA GUTIÉRREZ MD, Ot Z01.818 ENCOUNTER FOR OTHER PREPROCEDURAL EXAMIN 01/05/2019 JULIA GUTIÉRREZ MD Ot Z01.818 ENCOUNTER FOR OTHER PREPROCEDURAL EXAMIN Procedures Code Description [place] [address] ROUTINE VENIPUNCTURE ELISEO KELLY 04/03/2016 42585 COMPREHEN METABOLIC PANEL ELISEO KELLY 04/03/2016 03995 ASSAY OF FREE THYROXINE ELISEO KELLY 04/03/2016 50927 ASSAY THYROID STIM HORMONE ELISEO KELLY 04/03/2016 10448 COMPLETE CBC W/AUTO DIFF WBC ELISEO KELLY 04/03/2016 95022 ROUTINE VENIPUNCTURE ELISEO KELLY 06/25/2016 46723 PROTHROMBIN TIME ELISEO KELLY 06/25/2016 48954 ROUTINE VENIPUNCTURE ELISEO KELLY 07/13/2016 20056 METABOLIC PANEL TOTAL CA ELISEO KELLY 07/13/2016 32032 ROUTINE VENIPUNCTURE ZECHARIAHISABELLA COOPERP, VALERY D 03/06/2018 56109 COMPREHEN METABOLIC PANEL ZECHARIAHISABELLA COOPERP, VALERY D 03/06/2018 39820 LIPID PANEL ZECHARIAH DOCTOR OF NURSE ANESTHESIA, VALERY D 03/06/2018 42332 ASSAY CARBAMAZEPINE TOTAL ZECHARIAH DOCTOR OF NURSE ANESTHESIA, VALERY D 03/06/2018 88446 URINALYSIS AUTO W/SCOPE ZECHARIAHISABELLA COOPERP, VALERY D 03/06/2018 07592 ASSAY OF TOTAL THYROXINE ZECHARIAH DOCTOR OF NURSE ANESTHESIA, VALERY D 03/06/2018 52837 ASSAY THYROID STIM HORMONE ZECHARIAH DOCTOR OF NURSE ANESTHESIA, VALERY D 03/06/2018 62884 COMPLETE CBC W/AUTO DIFF WBC ZECHARIAHISABELLA COOPERP, VALERY D 03/06/2018 79955 URINE CULTURE/COLONY COUNT ZECHARIAH DOCTOR OF NURSE ANESTHESIA, VALERY D 03/06/2018 04445 ELECTROCARDIOGRAM TRACING ZECHARIAH DOCTOR OF NURSE ANESTHESIA, VALERY D 03/06/2018 62036 EMERGENCY DEPT VISIT ZECHARIAHISABELLA COOPERP, VALERY D 03/06/2018 Results Test Result Range COMPLETE BLOOD COUNT - 04/04/16 07:19 Platelet 250 10^3u 142-424 MPV 11.4 [place] 9.4-12.4 [place] # 0.69 10^3u 0.0-1.0 RBC 4.83 10^6u 4.04-6.13 [place] % 5.7 % 0-12 RDW 17.0 % [...] culture - 06/29/18 18:55 Bacterial urine culture [id number] NRG COLONY COUNT 50,000 CFU/ML NRG FTX;REPORTABLE [...] Status Pt. Type Provider Facility Loc./Unit Complaint [id number] 03/06/2018 06:30:00 03/12/2018 15:15:00 DIS Inpatient TRE GARCIA MD [facility] [id number] 03/06/2018 04:04:00 03/06/2018 06:24:00 DIS Emergency ZECHARIAH DOCTOR OF NURSE ANESTHESIA, VALERY Guzman [id number] 01/27/2018 05:25:00 01/29/2018 13:00:00 DIS Inpatient TRE GARCIA MD [id number] 01/21/2018 04:30:00 01/23/2018 12:00:00 DIS Inpatient TRE GARCIA MD [id number] 07/13/2016 17:03:00 07/13/2016 17:03:00 DIS Outpatient [facility] OTHER [id number] 06/25/2016 13:51:00 06/25/2016 13:51:00 DIS Outpatient [facility] OTHER [id number] 04/03/2016 18:02:00 04/03/2016 18:02:00 DIS Outpatient [facility] OTHER [id number] 04/21/2018 15:16:00 Document Registration [id number] 03/10/2018 12:56:00 Document Registration [id number] 02/04/2018 16:41:00 Document Registration [id number] 02/05/2018 12:52:48 02/05/2018 12:52:48 DIS Outpatient [facility] [id number] 01/02/2019 05:38:00 01/02/2019 13:05:00 DIS Outpatient JULIA GUTIÉRREZ MD [facility] PREOP COLONOSCOPY/EGD [id number] 12/04/2018 08:46:00 12/04/2018 23:59:59 CLS Outpatient ANAMARIA PACK MD [facility] RAD CHRONIC SINUSITIS [id number] 10/12/2018 19:15:00 10/12/2018 21:58:00 DIS Emergency TAM EPPERSON [facility] ER FALL [id number] 07/14/2018 12:40:00 07/14/2018 13:31:00 DIS Outpatient ROSI HUTCHISON DO [facility] Z45.2 [id number] 07/14/2018 11:59:00 07/14/2018 11:59:00 CAN Preadmit ROSI HUTCHISON DO [facility] UTI [id number] 07/10/2018 18:36:00 07/10/2018 20:15:00 DIS Emergency LISA LAROSE IAN Guillaume [facility] ER FALL [id number] 07/02/2018 09:03:00 07/02/2018 23:59:59 CLS Outpatient PIERRE DE LA VEGA MD [facility] CARD HTN [id number] 06/29/2018 16:46:00 06/29/2018 23:59:59 CLS Emergency PRIYA ROUSE APRN [facility] ER CP [id number] 06/26/2018 17:59:00 06/26/2018 21:58:00 DIS Emergency PERFECTO MARVIN [facility] ER FALL [id number] 06/21/2018 18:26:00 06/21/2018 19:50:00 DIS Emergency PRIYA ROUSE MICROBIOLOGY LAB ASSISTANT [facility] ER CP [id number] 06/18/2018 10:24:00 06/18/2018 16:15:00 DIS Outpatient PIERRE DE LA VEGA MD [facility] CATH ABN STRESS [id number] 06/16/2018 08:16:00 06/16/2018 23:59:59 CLS Outpatient PIERRE DE LA VEGA MD [facility] CARD HTN [id number] 06/08/2018 19:34:00 06/08/2018 21:20:00 DIS Emergency BERNOT, TAM [facility] ER FALL [id number] 05/30/2018 16:35:00 05/30/2018 17:56:00 DIS Emergency PRIYA ROUSE MICROBIOLOGY LAB ASSISTANT [facility] ER FALL [id number] 05/23/2018 18:33:00 05/23/2018 19:54:00 DIS Emergency PRIYA ROUSE MICROBIOLOGY LAB ASSISTANT [facility] ER CHEST PAIN L SIDE [id number] 05/12/2018 18:47:00 05/12/2018 22:06:00 DIS Emergency PRIYA ROUSE MICROBIOLOGY LAB ASSISTANT [facility] ER CHEST PAIN [id number] 05/11/2018 20:56:00 05/11/2018 22:49:00 DIS Emergency BERNMARIE TAM [facility] ER NECK PAIN [id number] 05/10/2018 19:09:00 05/10/2018 21:49:00 DIS Emergency PRIYA ROUSE MICROBIOLOGY LAB ASSISTANT [facility] ER GENERAL [id number] 05/05/2018 19:57:00 05/05/2018 21:14:00 DIS Emergency BERNOT, TAM [facility] ER L KNEE PAIN [id number] 05/02/2018 20:10:00 05/03/2018 00:07:00 DIS Emergency EDEL ANTHONY MD [facility] ER CP [id number] 01/07/2019 13:30:00 JULIA Sierra MD [facility] ENDO SCREENING/REFLUX/CHEST PAIN [id number] 05/13/2014 14:35:00 05/13/2014 14:35:00 DIS Outpatient BEATRICE FRY [facility] ORTHO [id number] 04/22/2014 14:34:00 04/22/2014 14:34:00 DIS Outpatient LISANDRABEATRICE Antoinette [facility] ORTHO [id number] 09/10/2016 00:24:00 09/10/2016 03:28:00 DIS Emergency ANDREW SULTANA [facility] ER CHEST DISCOMFORT [id number] 08/05/2016 20:05:00 08/05/2016 23:59:59 CLS [facility] ER FALL [id number] 08/05/2016 20:05:00 08/05/2016 22:40:00 DIS Emergency LINA MEME [facility] ER FALL [id number] 07/31/2016 19:09:00 07/31/2016 22:30:00 [facility] [id number] 07/19/2016 22:07:00 07/20/2016 00:45:00 DIS Emergency BENIGNO PALACIOS [facility] ER R KNEE PAIN [id number] 07/16/2016 21:22:00 07/16/2016 22:35:00 DIS Emergency IAN BROOKS [facility] ER FALL [id number] 04/25/2016 12:21:00 04/25/2016 23:59:59 CLS Outpatient ELISEO CATHERINE [facility] NPLAB [id number] 04/18/2016 14:25:00 04/18/2016 16:05:00 DIS Emergency NICK BAIN [facility] ER BACK PAIN [id number] 04/17/2016 07:15:00 04/17/2016 08:07:00 DIS Emergency IAN BROOKS [facility] ER BACK PAIN [id number] 02/17/2018 15:52:00 Document Registration [id number] 02/17/2018 13:11:00 Document Registration [id number] 06/29/2016 22:15:00 Document Registration [id number] 03/06/2016 08:34:00 Document Registration [id number] 02/20/2016 09:23:00 Document Registration [id number] 02/06/2016 08:43:00 Document Registration [id number] 02/01/2016 09:28:00 Document Registration [id number] 01/30/2016 09:56:00 Document Registration [id number] 01/24/2016 14:29:00 Document Registration [id number] 01/18/2016 10:02:00 Document Registration [id number] 01/17/2016 09:44:00 Document Registration [id number] 01/16/2016 08:27:00 Document Registration [id number] 01/13/2016 10:10:00 Document Registration [id number] 01/09/2016 11:09:00 Document Registration [id number] 01/04/2016 08:29:00 Document Registration [id number] 01/02/2016 13:29:00 Document Registration [id number] 12/29/2015 15:42:00 Document Registration [id number] 12/06/2015 05:08:00 Document Registration [id number] 12/03/2015 21:25:00 Document Registration [id number] 11/30/2015 21:48:00 Document Registration [id number] 11/27/2015 21:00:00 Document Registration [id number] 11/25/2015 23:58:00 Document Registration [id number] 11/21/2017 06:09:00 Document Registration
[2019-01-07 13:42] VITALS: BP 133/92
[2019-01-07] MEDS ORDERED: PROPOFOL INJECTION 50 ML IV ONE (13:42)
[2019-01-07] MEDS ORDERED: MIDAZOLAM 5 MG/5 ML (VERSED) VIAL ONE (13:42)
[2019-01-07] MEDS ORDERED: proPOfol 200 MG/20 ML (DIPRIVAN) VIAL IV ONE (14:24)
--- NOTE | 2019-01-07 14:47 | Anesthesia-General Post-Op ---
MAC Patient Condition Mental Status/LOC: Same as Preop Cardiovascular: Satisfactory Nausea/Vomiting: Absent Respiratory: Satisfactory Pain: Controlled Complications: Absent Post Op Complications Complications None Follow Up Care/Instructions Patient Instructions None needed. Anesthesiology Discharge Order Discharge Order Patient is doing well, no complaints, stable vital signs, no apparent adverse anesthesia problems. No complications reported per nursing. STEVE LARSON CRNA January 07, 2019 14:47
[2019-01-07 15:00] VITALS: BP_SYST 154; BP_SYST 158; BP_DIAS 89; BP_DIAS 92
--- NOTE | 2019-01-07 15:01 | Progress Note-Post Operative ---
Post-Operative Progess Note Surgeon (s)/Travel Administrator (s) Surgeon JULIA GUTIÉRREZ MD Travel Administrator: none Pre-Operative Diagnosis GERD, screening col Post-Operative Diagnosis reflux esophagitis(stage 2), moderate HH(2.5cm), moderate gastritis. normal colon and rectum. Procedure & Operative Findings Date of Procedure 01/07/19 Procedure Performed/Findings EGD with bx. Colonoscopy. Anesthesia Type mac Estimated Blood Loss Estimated blood loss (mL): minimal Specimens/Packing Specimens Removed ge jxn, antrum JULIA GUTIÉRREZ MD January 07, 2019 15:01
[2019-01-07 15:45] VITALS: BP 154/92
--- NOTE | 2019-01-07 19:19 | OPERATIVE REPORT ---
DATE OF SERVICE: 01/07/2019 ATTENDING PRIMARY CARE PHYSICIAN: Dr. Fuentes. PREOPERATIVE DIAGNOSIS: Gastroesophageal reflux disease, screening colonoscopy. POSTOPERATIVE DIAGNOSES: Reflux esophagitis stage II, moderate size hiatal hernia approximately 2.5 cm in size, moderate gastritis. Colonoscopy appeared normal. No polyps or any neoplasms. PROCEDURE: EGD with biopsy, colonoscopy. SURGEON: Julia Gutiérrez MD ANESTHESIA: Monitored anesthesia care. ESTIMATED BLOOD LOSS: Minimal. FINDINGS: As above in the postop. DISPOSITION: The patient tolerated the procedure well. INDICATIONS: The patient is a 63-year-old female who is referred over to us for worsening gastroesophageal reflux with epigastric burning sensation and crampy pain, which has significantly worsened in the past 6 months. She does not report any nausea, no vomiting as well as no hematemesis, no coffee ground emesis. She is currently on omeprazole 20 mg b.i.d. She is also in need of a screening colonoscopy. Her last colonoscopy was greater than 10 years ago. She did undergo recent cardiac workup, which did not show any abnormalities. 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 DESCRIPTION OF PROCEDURE: The patient was brought back to the endoscopy suite, laid in the left lateral decubitus position. After adequate IV pain and sedative medications and monitored anesthesia care, the mouthpiece was applied. Endoscope was placed in the mouth, visualizing the pharynx and hypopharyngeal region. Vocal cords, epiglottis and vallecula identified and appeared to a normal. The endoscope was gently intubated the esophageal opening and esophagus was insufflated. The endoscope was then advanced to the first, second and third portions of the esophagus at the level of the GE junction, a reflux esophagitis stage II identified. There were no ulcers or strictures identified in this region. A biopsy was taken using forceps with visualization of good hemostasis. The endoscope was then advanced to the stomach and endoscope retroflexed, visualizing a moderate sized hiatal hernia approximately 2.5 cm in size. There was a moderate severity gastritis; however, no formal ulcerations, polyps or any neoplasms. A biopsy was taken of the antrum to rule out H. pylori with visualization of good hemostasis. The endoscope was then advanced through the pylorus and first and second portions of duodenum, which appeared normal with no distal obstructions. The endoscope was then slowly withdrawn while taking a second look and suctioning of residual air with no additional findings. The patient tolerated this portion of the procedure well. For her reflux esophagitis, hiatal hernia and gastritis, we will recommend the necessary lifestyle and diet accommodation including small and more frequent meals, avoidance of eating at night as well as head elevation while lying supine. We will also have her start Protonix 40 mg daily as well as Carafate 1 gram q.i.d. She also does have a moderate size hiatal hernia, which is contributing to her symptoms as well. However, due to her body mass index her recurrence rate after hiatal hernia repair would be high. We would recommend weight loss modalities first. There is also the possibility of combining bariatric surgery with hiatal hernia repair as well. Under the same anesthesia, we then proceed with colonoscopy portion of the procedure. A digital rectal examination was performed, which did not reveal any significant hemorrhoids. Normal sphincter tone was felt and there were no palpable masses. The endoscope was then intubated to the anus and rectum gently insufflated. The endoscope was then advanced to the valves of Chang in the rectum with no polyps or any neoplasms identified. Through the sigmoid colon there were no diverticulosis identified. The endoscope was then advanced to the remainder of the descending, transverse and ascending colon to the cecum. These segments were normal. There were no polyps or any neoplasms identified throughout the colon or rectum. The patient tolerated the procedure well. We will recommend continued medical management with a high fiber diet with at least 25 grams of fiber per day as well as significant amounts of water to promote soft bowel movements on a daily basis. She does not need another colonoscopy for another 10 years. Job ID: [id number] DocumentID: [id number] Dictated Date: 01/07/2019 14:49:16 Porcelain Enamel Repairer Date: 01/07/2019 19:19:21 Dictated By: JULIA GUTIÉRREZ MD
== END 2019-01-07 15:45 | disposition home or self-care (01) ==
LOC: ENDO 12:12
PROVIDERS: ATTEND Surgery
DX: Z12.11 Encounter for screening for malignant neoplasm of colon (principal); K21.0 Gastro-esophageal reflux disease with esophagitis; K44.9 Diaphragmatic hernia without obstruction or gangrene; K29.70 Gastritis, unspecified, without bleeding; Z86.718 Personal history of other venous thrombosis and embolism; Z79.01 Long term (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 of anticoagulants; E11.9 Type 2 diabetes mellitus without complications; I10 Essential (primary) hypertension; E78.1 Pure hyperglyceridemia; J44.9 Chronic obstructive pulmonary disease, unspecified; G47.33 Obstructive sleep apnea (adult) (pediatric); F31.9 Bipolar disorder, unspecified; E03.9 Hypothyroidism, unspecified; Z96.651 Presence of right artificial knee joint; Z79.899 Other long term (current) drug therapy; E66.01 Morbid (severe) obesity due to excess calories; Z68.43 Body mass index [BMI] 50.0-59.9, adult
CPT/HCPCS: 43239; G0121

== ENCOUNTER 2019-02-21 20:25 | Emergency (ER) | payer MEDICARE, MEDICAID ==
[~2019-02-21] VITALS: Ht 165.1 cm; Wt 160.2 kg
[~2019-02-21 20:25] MED LIST changes: +PANT40TA2 PO
--- NOTE | 2019-02-21 20:48 | ED Fall/Injury ---
General Chief Complaint: Trauma-Non Activation Stated Complaint: FALL Source: patient, EMS, [facility] records, old records History of Present Illness Date Seen by Provider: Feb 21, 2019 Time Seen by Provider: 20:26 Initial Comments PT ARRIVES VIA POV FROM [facility] PT STATES SHE HAD STOOD UP FROM HER WHEELCHAIR, AND HER LEFT KNEE BUCKLED AND THEN HER RIGHT LEG SLID, AND SHE SLOWLY SLID DOWN TO THE FLOOR, STATING THAT SHE HIT HER RIGHT HIP, HER RIGHT KNEE AND RIGHT LOWER BACK ON HER WHEELCHAIR WAS NOT ABLE TO GET UP ON HER OWN OCCURRED APPROXIMATELY AN HOUR AGO--AROUND 1930 DID NOT HIT HEAD AND NO LOSS OF CONSCIOUSNESS PT STATES SHE HAS PERIPHERAL NEUROPATHY FROM THE KNEES DOWN, RIGHT > LEFT, AND HAS CHRONIC PAIN AND NUMBNESS TO BILATERAL LOWER LEGS PT HAS HAD RIGHT KNEE REPLACEMENT AND IT STILL CAUSES HER SOME PAIN STATES SHE NEEDS LEFT KNEE REPLACEMENT AND FREQUENTLY THE LEFT KNEE TIM, IT DID TODAY--STATES RIGHT KNEE ALSO TIM NO INCREASE IN CHRONIC BILATERAL KNEE PAIN HAS CHRONIC BACK PAIN, AND BACK "HURTS A LITTLE MORE THAN NORMAL" SINCE SHE FELL. HAS NOT TAKEN ANYTHING FOR PAIN SINCE THIS HAPPENED. PT TAKES HYDROCODONE AND GABAPENTIN FOR HER CHRONIC PAIN COMPLAINTS WANTS PAIN MEDICATIONS SOON SHE ARRIVES, YET DOES NOT APPEAR TO BE IN ANY DISCOMFORT WHATSOEVER. PT IS SMILING, LAUGHING AND VERY TALKATIVE. . PT WITH MULTITUDE OF VISITS--JUST MOVED HERE TO [facility] FROM [place], 04/20/2018 AND HAS HAD 15 ER VISITS HERE, SINCE HER FIRST VISIT 05/02/18--ALL FOR PAIN COMPLAINTS, FREQUENT "FALLS" AND FREQUENT CHEST PAIN COMPLAINTS, AND ULTIMATELY FOR HER CHRONIC GENERALIZED PAIN . WANTING PAIN MEDICATIONS SOON SHE ARRIVES, PER HER USUAL. 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 JHA Allergies and Home Medications Allergies Coded Allergies: Cephalosporins (Verified Allergy, Unknown, 02/21/19) Penicillins (Verified Allergy, Unknown, 02/21/19) Sulfa (Sulfonamide Antibiotics) (Verified Allergy, Unknown, 02/21/19) aspirin (Verified Allergy, Unknown, 02/21/19) cephalexin (Verified Allergy, Unknown, 02/21/19) codeine (Verified Allergy, Unknown, 02/21/19) diphenhydramine (Verified Allergy, Unknown, 02/21/19) erythromycin base (Verified Allergy, Unknown, 02/21/19) iodine (Verified Allergy, Unknown, 02/21/19) ketorolac (Verified Allergy, Unknown, 02/21/19) morphine (Verified Allergy, Unknown, 02/21/19) propoxyphene (Verified Allergy, Unknown, 02/21/19) tetracycline (Verified Allergy, Unknown, 02/21/19) Home Medications Albuterol Sulfate 1 Puff Puff, 2 PUFF IH TID PRN for SHORTNESS OF BREATH, (Reported) 1 PUFF = 90 MCG Carvedilol 6.25 Mg Tablet, 6.25 MG PO BID, (Reported) HOLD FOR SBP<100 OR PULSE <60 Clonazepam 0.25 Mg Tab.rapdis, 0.25 MG PO BID, (Reported) Cranberry Extract 500 Mg Tablet, 1,000 MG PO BID, (Reported) Diclofenac Sodium 100 Gm Gel..gram., 4 GM TP Q8H PRN for KNEE PAIN, (Reported) Divalproex Sodium 500 Mg Tab.er.24h, 500 MG PO HS, (Reported) Dulaglutide 0.75 Mg/0.5 Ml Pen.injctr, 0.75 MG SQ WEEK, (Reported) Duloxetine HCl 60 Mg Capsule.dr, 60 MG PO BID, (Reported) Gabapentin 600 Mg Tablet, 600 MG PO BID, (Reported) Gabapentin 300 Mg Capsule, 300 MG PO DAILY@1700, (Reported) Hydroxyzine HCl 25 Mg Tablet, 25 MG PO BID, (Reported) Levothyroxine Sodium 112 Mcg Tablet, 224 MCG PO DAILY, (Reported) take 2 (112mcg) tabs Mag Hydrox/Al Hydrox/Simeth 30 Ml Oral.susp, 30 ML PO Q4H PRN for INDIGESTION, (Reported) Montelukast Sodium 10 Mg Tablet, 10 MG PO HS, (Reported) Olanzapine 10 Mg Tablet, 10 MG PO HS, (Reported) Omeprazole 20 Mg Capsule.dr, 20 MG PO BID, (Reported) Pantoprazole Sodium 40 Mg Tablet.dr, 40 MG PO DAILY Prescribed by: JULIA GUTIÉRREZ on 01/07/19 1245 Rivaroxaban 20 Mg Tablet, 20 MG PO HS, (Reported) Rosuvastatin Calcium 20 Mg Tablet, 20 MG PO HS, (Reported) Saccharomyces Boulardii 250 Mg Capsule, 250 MG PO BID, (Reported) Topiramate 100 Mg Tablet, 100 MG PO BID, (Reported) Tramadol HCl 50 Mg Tablet, 100 MG PO BID, (Reported) take 2 (50mg) Tabs Patient Home Medication List Home Medication List Reviewed: Yes Review of Systems Review of Systems Constitutional: no symptoms reported Respiratory: no symptoms reported Cardiovascular: no symptoms reported Gastrointestinal: no symptoms reported Musculoskeletal: see HPI Skin: no symptoms reported Psychiatric/Neurological: See HPI, Pre-Existing Deficit Past Ivjbgph-Scjham-Ywmaym Hx Patient Social History Smoking Status: Current Everyday Smoker (4 PPD) Type Used: Cigarettes (4 PPD) 2nd Hand Smoke Exposure: Yes Recent Hopitalizations: No Immunizations Up To Date Tetanus Booster (TDap): Unknown Date of Pneumonia Vaccine: May 04, 2009 Seasonal Allergies Seasonal Allergies: Yes Past Medical History Surgeries: Yes (EGD/COLONOSOCPY 12/2018; RIGHT KNEE REPLACEMENT; L4-L5 LAMINECTOMY--PER PT, BUT NO EVIDENCE OF THIS ON CT; 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; HYST/BSO; SINUS SURGERY X 8; CARDIAC CATH 05/2018--NO INTERVENTION) Amputation, Cardiac, Hysterectomy, Joint Replacement, Oophorectomy, Orthopedic, Tubal Ligation Respiratory: Yes (O2 AT 2L/NC) Chronic Bronchitis, Sleep Apnea, COPD Currently Using CPAP: Yes (WITH O2) Cardiac: Yes (DVT-LEG; CARDIAC CATH 05/2018--NO INTERVENTION/ NON-OCCLUSIVE DISEASE) Chronic Edema/Swelling, Coronary Artery Disease, Deep Vein Thrombosis, High Cholesterol, Hypertension Neurological: Yes (PERIPHEARL NEUROPATHY) Headaches /Migraines, Neuropathy 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 ) Degenerate Disk Disease, Arthritis, Chronic Back Pain Endocrine: Yes (MORBID OBESITY) Hypothyroidsim, Diabetes, Non-Insulin dep HEENT: Yes (CHRONIC SINUSITIS) Cancer: No Psychosocial: Yes Anxiety, Bipolar, Depression Integumentary: Yes (hx of CELLULITIS) Blood Disorders: No Family Medical History No Pertinent Family Hx Physical Exam Vital Signs Vital Signs - First Documented 02/21/19 20:25 Temp 98.1 Pulse 91 Resp 20 B/P (MAP) 134/97 (109) Pulse Ox 97 O2 Delivery Nasal Cannula O2 Flow Rate 2.00 Capillary Refill : Height, Weight, BMI Height: 5'5.00" Weight: 350lbs. 3.0oz. 158.183696vr; 58.3 BMI Method:Stated General Appearance: no apparent distress, obese, other (SMILING, TALKATIVE, DOES NOT APPEAR TO BE IN ANY DISCOMFORT OR DISTRESS. ) Cardiovascular: regular rate, rhythm, no murmur Respiratory: normal breath sounds, no respiratory distress Gastrointestinal: non tender, soft Back: no CVA tenderness, other (LOWER BACK/ RIGHT POSTERIOR ILIAC AREA / HIP / BUTTOCK AREA TENDERNESS. ) Extremities: normal capillary refill, other (TENDERNESS TO RIGHT HIP AND RIGHT KNEE. ) Neurologic/Psychiatric: retoucher photoengraving II-XII nml as tested, no motor/sensory deficits (HAS SOME SENSATION TO BILATERAL , BUT HAS HX OF PERIPHERAL NEUROPATHY), alert, normal mood/affect, oriented x 3 Skin: normal color, warm/dry, other (NO EXTERNAL EVIDENCE OF TRAUMA) Adrian Coma Score Best Eye Response: (4) Open Spontaneously Best Verbal Response: (5) Oriented Best Motor Response: (6) Obeys Commands Adrian Total: 15 Progress/Results/Core Measures Results/Orders My Orders Orders - IAN GONZALEZ DO Ed Iv/Invasive Line Start (02/21/19 20:32) Ct Lumbar Spine Wo (02/21/19 20:32) Femur, Right, 2 Views (02/21/19 20:32) Pelvis With Right Hip 2-3views (02/21/19 20:32) Knee, Right, 2 Views (02/21/19 20:32) Vital Signs/I&O 02/21/19 02/21/19 02/21/19 20:25 20:25 22:36 Temp 98.1 98.1 Pulse 91 91 82 Resp 20 20 20 B/P (MAP) 134/97 (109) 134/97 (109) 129/88 (102) Pulse Ox 97 97 97 O2 Delivery Nasal Cannula Room Air O2 Flow Rate 2.00 0 Progress Progress Note : Progress Note PT RESTED QUIETLY FOR ENTIRE ER STAY Diagnostic Imaging Comments XRAYS: PELVIS / RIGHT HIP--NO ACUTE PROCESS RIGHT FEMUR--NO ACUTE PROCESS RIGHT KNEE--NO ACUTE PROCESS CT LUMBAR SPINE--NO ACUTE PROCESS, DEGENERATIVE DISC DISEASE, OLD T 11 COMPRESSION FRACTURE ALL PER RADIOLOGIST REPORTS AT 2200 Reviewed: Reviewed by Me Departure Impression Primary Impression: S/P FALL FROM STANDING Additional Impressions: Exacerbation of chronic back pain Contusion of right hip and thigh Contusion of right knee Disposition: 03 XFER SNF Condition: Stable Departure-Patient Inst. Referrals: ROSI HUTCHISON DO (PCP/Family) Primary Care Physician Patient Instructions: CHRONIC PAIN, Contusion (DC), Preventing Falls in the Older Adult Add. Discharge Instructions: TAKE YOUR MEDICATIONS PRESCRIBED FOLLOW UP WITH YOUR DR NEXT WEEK FOR FURTHER CARE All discharge instructions reviewed with patient and/or family. Voiced understanding. IAN GONZALEZ DO Feb 21, 2019 20:48
--- OUTSIDE RECORDS SUMMARY | 2019-02-21 21:01 | XMS REPORT | Continuity of Care Document ---
Author Organization Unknown Address Unknown Allergies Active Description Code Type Severity Reaction Onset Reported/Identified Relationship to Patient Clinical Status Yes aspirin [id number] Drug Unknown N/A Yes banana Food Unknown N/A Yes cephalexin n00359 Drug Unknown N/A Yes codeine j44855 Drug Unknown N/A Yes diphenhydrAMINE h20020 Drug Unknown N/A Yes erythromycin base d33252 Drug Unknown N/A Yes Fish Food Unknown N/A Yes iodine d96448 Other Unknown N/A Yes ketorolac p13726 Drug Unknown N/A Yes Latex Environment Unknown N/A Yes Milk Products Food Unknown N/A Yes morphine p90825 Drug Unknown N/A Yes Mushroom Food Unknown N/A Yes oxyCODONE m99310 Drug Unknown N/A Yes penicillin c13997 Drug Unknown N/A Yes propoxyphene b55127 Drug Unknown N/A Yes sulfonamides Drug Unknown N/A Yes tetracycline b56333 Drug Unknown N/A Yes cephalexin [id number] Drug Allergy Unknown N/A 05/02/2018 Yes Cephalosporins [id number] Drug Allergy Unknown N/A 05/02/2018 Yes codeine [id number] Drug Allergy Unknown N/A 05/02/2018 Yes diphenhydramine [id number] Drug Allergy Unknown N/A 05/02/2018 Yes erythromycin base [id number] Drug Allergy Unknown N/A 05/02/2018 Yes iodine [id number] Drug Allergy Unknown N/A 05/02/2018 Yes morphine [id number] Drug Allergy Unknown N/A 05/02/2018 Yes Penicillins [id number] Drug Allergy Unknown N/A 05/02/2018 Yes propoxyphene [id number] Drug Allergy Unknown N/A 05/02/2018 Yes Sulfa (Sulfonamide Antibiotics) [id number] Drug Allergy Unknown N/A 05/02/2018 Yes tetracycline [id number] Drug Allergy Unknown N/A 05/02/2018 Yes aspirin [id number] Drug Allergy Unknown N/A 05/12/2018 Yes ketorolac [id number] Drug Allergy Unknown N/A 10/12/2018 Medications There is no data. Problems Date Dx Coded Attending Type Code Diagnosis Diagnosed By 07/25/1330 KIANNA ROSI Ot N39.0 URINARY TRACT INFECTION, SITE NOT SPECIF 04/03/2016 ELISEO KELLY E03.9 Hypothyroidism, unspecified 04/03/2016 LONG ELISEO STERLING I10 Essential (primary) hypertension 06/25/2016 LONG ELISEO STERLIGN I82.409 Acute embolism and thombos unsp deep vn unsp lower extremity 07/13/2016 ELISEO KELLY I10 Essential (primary) hypertension 01/23/2018 TRE GARCIA MD E03.9 Hypothyroidism, unspecified [...] infection, site not specified 03/06/2018 VALERY BOTELLO E03.9 Hypothyroidism, unspecified 03/06/2018 [...] (BMI) 45.0-49.9, adult 03/06/2018 VALERY BOTELLO Z79.01 skilled nursing (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 of anticoagulants 03/06/2018 VALERY BOTELLO [...] TRE GARCIA MD J30.9 Allergic rhinitis, unspecified 05/03/2018 EDEL ANTHONY MD, Ot E03.9 HYPOTHYROIDISM, UNSPECIFIED 05/03/2018 EDEL ANTHONY MD Ot E11.9 TYPE 2 DIABETES MELLITUS WITHOUT COMPLIC 05/03/2018 EDEL ANTHONY MD Ot E78.00 PURE HYPERCHOLESTEROLEMIA, UNSPECIFIED 05/03/2018 EDEL ANTHONY MD Ot F17.210 NICOTINE DEPENDENCE, CIGARETTES, UNCOMPL 05/03/2018 EDEL ANTHONY MD Ot F31.9 BIPOLAR DISORDER, UNSPECIFIED 05/03/2018 EDEL ANTHONY MD Ot F41.9 ANXIETY DISORDER, UNSPECIFIED 05/03/2018 EDEL [...] TAM EPPERSON Ot E03.9 HYPOTHYROIDISM, UNSPECIFIED 05/05/2018 TAM EPPERSON Ot E11.9 TYPE 2 DIABETES MELLITUS WITHOUT COMPLIC 05/05/2018 TAM EPPERSON Ot E78.00 PURE HYPERCHOLESTEROLEMIA, UNSPECIFIED 05/05/2018 BLESSING EPPERSONIS Ot F17.200 NICOTINE DEPENDENCE, UNSPECIFIED, UNCOMP 05/05/2018 TAM EPPERSON Ot F32.9 MAJOR DEPRESSIVE DISORDER, SINGLE EPISOD 05/05/2018 TAM EPPERSON Ot F41.9 ANXIETY DISORDER, UNSPECIFIED 05/05/2018 TAM EPPERSON Ot G43.909 MIGRAINE, UNSP, NOT INTRACTABLE, WITHOUT 05/05/2018 TAM EPPERSON Ot I10 ESSENTIAL (PRIMARY) HYPERTENSION 05/05/2018 TAM EPPERSON Ot K21.9 GASTRO- ESOPHAGEAL REFLUX DISEASE WITHOUT 05/05/2018 TAM EPPERSON Ot M25.562 PAIN IN LEFT KNEE 05/05/2018 TAM EPPERSON Ot W19.XXXA UNSPECIFIED FALL, INITIAL ENCOUNTER 05/05/2018 TAM EPPERSON Ot X50.1XXA OVEREXERTION FROM PROLONGED STATIC OR AW 05/05/2018 TAM EPPERSON Ot Y92.[address] IN [facility] 05/05/2018 TAM EPPERSON Ot Z86.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 05/05/2018 TAM EPPERSON Ot Z88.0 ALLERGY STATUS TO PENICILLIN 05/05/2018 TAM EPPERSON Ot Z88.1 ALLERGY STATUS TO OTHER ANTIBIOTIC AGENT 05/05/2018 TAM EPPERSON Ot Z88.2 ALLERGY STATUS TO SULFONAMIDES STATUS 05/05/2018 TAM EPPERSON Ot Z88.5 ALLERGY STATUS TO NARCOTIC AGENT STATUS 05/05/2018 TAM EPPERSON Ot Z88.8 ALLERGY STATUS TO [facility] DRUG/MEDS/BIOL SUB 05/05/2018 TAM EPPERSON Ot Z91.041 [...] I10 ESSENTIAL (PRIMARY) HYPERTENSION 05/08/2018 EDEL ANTHONY MD Ot J44.9 CHRONIC OBSTRUCTIVE PULMONARY DISEASE, [...] AND TENDON AT N 05/10/2018 PRIYA ROUSE CHIEF TECHNICIAN Ot V00.811A FALL FROM MOVING WHEELCHAIR (POWERED), I 05/10/2018 PRIYA ROUSE CHIEF TECHNICIAN Ot W22.09XA STRIKING AGAINST OTHER STATIONARY OBJECT 05/10/2018 PRIYA ROUSE CHIEF TECHNICIAN Ot Z79.01 HEAD BONE GRINDER (CURRENT) USE OF ANTICOAGULANT 05/10/2018 PRIYA ROUSE APRN Ot Z86.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 05/10/2018 PRIYA ROUSE CHIEF TECHNICIAN Ot Z88.0 ALLERGY STATUS TO PENICILLIN 05/10/2018 PRYIA ROUSE CHIEF TECHNICIAN Ot Z88.1 ALLERGY STATUS TO OTHER ANTIBIOTIC AGENT 05/10/2018 PRIYA ROUSE APRN Ot Z88.2 ALLERGY STATUS TO SULFONAMIDES STATUS 05/10/2018 PRIYA ROUSE CHIEF TECHNICIAN Ot Z88.4 ALLERGY STATUS TO ANESTHETIC AGENT STATU 05/10/2018 PRIYA ROUSE APRN Ot Z88.5 ALLERGY STATUS TO NARCOTIC AGENT STATUS 05/10/2018 PRIYA ROUSE APRN Ot Z88.6 ALLERGY STATUS TO ANALGESIC AGENT STATUS 05/10/2018 PRIYA ROUSE APRN Ot Z88.8 ALLERGY STATUS TO OTH DRUG/MEDS/BIOL SUB 05/11/2018 TAM EPPERSON Ot E03.9 HYPOTHYROIDISM, UNSPECIFIED 05/11/2018 BERNMARIE TAM Ot E11.9 TYPE 2 DIABETES MELLITUS WITHOUT COMPLIC 05/11/2018 ZHOU TAM Ot E78.00 PURE HYPERCHOLESTEROLEMIA, UNSPECIFIED 05/11/2018 BLESSING EPPERSONIS Ot F32.9 MAJOR DEPRESSIVE DISORDER, SINGLE EPISOD 05/11/2018 ZHOU TAM Ot F41.9 ANXIETY DISORDER, UNSPECIFIED 05/11/2018 ZHOU TAM Ot G43.909 MIGRAINE, UNSP, NOT INTRACTABLE, WITHOUT 05/11/2018 ZHOU TAM Ot I10 ESSENTIAL (PRIMARY) HYPERTENSION 05/11/2018 BLESSING EPPERSONIS Ot K21.9 GASTRO- ESOPHAGEAL REFLUX DISEASE WITHOUT 05/11/2018 ZHOU TAM Ot M54.2 CERVICALGIA 05/11/2018 BLESSING EPPERSONIS Ot S13.4XXA SPRAIN OF LIGAMENTS OF CERVICAL SPINE, I 05/11/2018 TAM EPPERSON Ot W19.XXXA UNSPECIFIED FALL, INITIAL ENCOUNTER 05/11/2018 TAM EPPERSON Ot W22.09XA STRIKING AGAINST OTHER STATIONARY OBJECT 05/11/2018 TAM EPPERSON Ot Z79.01 ALF (CURRENT) USE OF ANTICOAGULANT 05/11/2018 TAM EPPERSON Ot Z86.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 05/11/2018 TAM EPPERSON Ot Z88.0 ALLERGY STATUS TO PENICILLIN 05/11/2018 TAM EPPERSON Ot Z88.1 ALLERGY STATUS TO [...] STATUS TO OTHER ANTIBIOTIC AGENT 05/12/2018 PRIYA ORUSE APRN Ot Z88.2 ALLERGY STATUS TO SULFONAMIDES [...] W22.09XA STRIKING AGAINST OTHER STATIONARY OBJECT 05/13/2018 ROUSE, PETER J CHIEF TECHNICIAN Ot Z79.01 HEAD BONE GRINDER (CURRENT) USE OF ANTICOAGULANT 05/13/2018 PRIYA ROUSE CHIEF TECHNICIAN Ot Z86.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 05/13/2018 PRIYA ROUSE CHIEF TECHNICIAN Ot Z88.0 ALLERGY STATUS TO PENICILLIN 05/13/2018 PRIYA ROUSE CHIEF TECHNICIAN Ot Z88.1 ALLERGY STATUS TO OTHER ANTIBIOTIC AGENT 05/13/2018 PRIYA ROUSE CHIEF TECHNICIAN Ot Z88.2 ALLERGY STATUS TO SULFONAMIDES STATUS 05/13/2018 PRIYA ROUSE CHIEF TECHNICIAN Ot Z88.4 ALLERGY STATUS TO ANESTHETIC AGENT STATU 05/13/2018 PRIYA ROUSE CHIEF TECHNICIAN Ot Z88.5 ALLERGY STATUS TO NARCOTIC AGENT STATUS 05/13/2018 PRIYA ROUSE APRN Ot Z88.6 ALLERGY STATUS TO ANALGESIC AGENT STATUS 05/13/2018 PRIYA ROUSE CHIEF TECHNICIAN Ot Z88.8 ALLERGY STATUS TO OTH DRUG/MEDS/BIOL SUB 05/13/2018 TAM EPPERSON Ot E03.9 HYPOTHYROIDISM, UNSPECIFIED 05/13/2018 BERNMARIE TAM [...] (PRIMARY) HYPERTENSION 05/13/2018 ZHOU TAM Ot K21.9 GASTRO- ESOPHAGEAL REFLUX DISEASE WITHOUT 05/13/2018 BERNMARIE TAM Ot M54.2 CERVICALGIA 05/13/2018 ZHOU TAM Ot S13.4XXA SPRAIN OF LIGAMENTS OF CERVICAL SPINE, I 05/13/2018 BLESSING EPPERSONIS Ot W19.XXXA UNSPECIFIED FALL, INITIAL ENCOUNTER 05/13/2018 ZHOU TAM Ot W22.09XA STRIKING AGAINST OTHER STATIONARY OBJECT 05/13/2018 TAM EPPERSON Ot Z79.01 HEAD BONE GRINDER (CURRENT) USE OF ANTICOAGULANT 05/13/2018 BLESSING EPPERSONIS [...] Ot E03.9 HYPOTHYROIDISM, UNSPECIFIED 05/18/2018 PRIYA ROUSE CHIEF TECHNICIAN Ot E11.9 TYPE 2 DIABETES MELLITUS WITHOUT [...] Ot E03.9 HYPOTHYROIDISM, UNSPECIFIED 05/23/2018 PRIYA ROUSE CHIEF TECHNICIAN Ot E11.9 TYPE 2 DIABETES MELLITUS WITHOUT [...] APRN Ot F41.9 ANXIETY DISORDER, UNSPECIFIED 06/02/2018 PIRYA ROUSE APRN Ot G43.909 MIGRAINE, UNSP, NOT [...] ALLERGY STATUS TO PENICILLIN 06/02/2018 PRIYA ROUSE CHIEF TECHNICIAN Ot Z88.1 ALLERGY STATUS TO OTHER ANTIBIOTIC AGENT 06/02/2018 PRIYA ROUSE CHIEF TECHNICIAN Ot Z88.2 ALLERGY STATUS TO SULFONAMIDES STATUS 06/02/2018 PRIYA ROUSE APRN Ot Z88.4 ALLERGY STATUS TO ANESTHETIC AGENT STATU 06/02/2018 PRIYA ROUSE APRN Ot Z88.5 ALLERGY STATUS TO NARCOTIC AGENT STATUS 06/02/2018 PRIYA ROUSE APRN Ot Z88.6 ALLERGY STATUS TO ANALGESIC AGENT STATUS 06/02/2018 PRIYA ROUSE CHIEF TECHNICIAN Ot Z88.8 ALLERGY STATUS TO OTH DRUG/MEDS/BIOL SUB 06/02/2018 PRIYA ROUSE APRN Ot Z90.710 ACQUIRED ABSENCE OF BOTH CERVIX AND UTER 06/02/2018 PRIYA ROUSE APRN Ot Z91.041 RADIOGRAPHIC DYE ALLERGY STATUS 06/02/2018 PRIYA ROUSE APRN Ot Z98.51 TUBAL LIGATION STATUS 06/08/2018 TAM EPPERSON Ot E03.9 HYPOTHYROIDISM, UNSPECIFIED 06/08/2018 TAM EPPERSON Ot E11.9 TYPE 2 DIABETES MELLITUS WITHOUT COMPLIC 06/08/2018 BLESSING EPPERSONIS Ot E78.00 PURE HYPERCHOLESTEROLEMIA, UNSPECIFIED 06/08/2018 BLESSING EPPERSONIS Ot F31.9 BIPOLAR DISORDER, UNSPECIFIED 06/08/2018 BLESSING EPPERSONIS Ot F41.9 ANXIETY DISORDER, UNSPECIFIED 06/08/2018 BLESSING EPPERSONIS Ot G43.909 MIGRAINE, UNSP, NOT INTRACTABLE, WITHOUT 06/08/2018 BLESSING EPPERSONIS Ot I10 ESSENTIAL (PRIMARY) HYPERTENSION 06/08/2018 BLESSING EPPERSONIS Ot K21.9 GASTRO- ESOPHAGEAL REFLUX DISEASE WITHOUT 06/08/2018 BLESSING EPPERSONIS Ot R40.2142 COMA SCALE, EYES OPEN, SPONTANEOUS, EMR 06/08/2018 TAM EPPERSON Ot R40.2252 COMA SCALE, BEST VERBAL RESPONSE, ORIENT 06/08/2018 TAM EPPERSON Ot R40.2362 COMA SCALE, BEST MOTOR RESPONSE, OBEYS C 06/08/2018 TAM EPPERSON Ot S09.90XA UNSPECIFIED INJURY OF HEAD, INITIAL ENCO 06/08/2018 TAM EPPERSON Ot S80.01XA CONTUSION OF RIGHT KNEE, INITIAL ENCOUNT 06/08/2018 BLESSING EPPERSONIS Ot W07.XXXA FALL FROM CHAIR, INITIAL ENCOUNTER 06/08/2018 BLESSING EPPERSONIS Ot W22.09XA STRIKING AGAINST OTHER STATIONARY OBJECT 06/08/2018 BLESSING EPPERSONIS Ot Z77.22 CNTCT W AND EXPSR TO ENVIRON TOBACCO SMO 06/08/2018 BLESSING EPPERSONIS Ot Z86.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 06/08/2018 BLESSING EPPERSONIS Ot Z88.0 ALLERGY STATUS TO PENICILLIN 06/08/2018 ZHOU TAM Ot Z88.1 ALLERGY STATUS TO OTHER ANTIBIOTIC AGENT 06/08/2018 BLESSING EPPERSONIS Ot Z88.2 ALLERGY STATUS TO SULFONAMIDES STATUS 06/08/2018 BLESSING EPPERSONIS Ot Z88.4 ALLERGY STATUS TO ANESTHETIC AGENT STATU 06/08/2018 BLESSING EPPERSONIS Ot Z88.5 ALLERGY STATUS TO NARCOTIC AGENT STATUS 06/08/2018 BLESSING EPPERSONIS Ot Z88.6 ALLERGY STATUS TO ANALGESIC AGENT STATUS 06/08/2018 BLESSING EPPERSONIS Ot Z88.8 ALLERGY STATUS TO OTH DRUG/MEDS/BIOL SUB 06/08/2018 ZHOU TAM Ot Z90.710 ACQUIRED ABSENCE OF BOTH CERVIX AND UTER 06/08/2018 ZHOU TAM Ot Z91.041 RADIOGRAPHIC DYE ALLERGY STATUS 06/08/2018 ZHOU TAM Ot Z98.51 TUBAL LIGATION STATUS 06/10/2018 ZHOU TMA Ot E03.9 HYPOTHYROIDISM, UNSPECIFIED 06/10/2018 ZHOU TAM Ot E11.9 TYPE 2 DIABETES MELLITUS WITHOUT COMPLIC 06/10/2018 ZHOU TAM Ot E78.00 PURE HYPERCHOLESTEROLEMIA, UNSPECIFIED 06/10/2018 BERNMARIE TAM Ot F31.9 BIPOLAR DISORDER, UNSPECIFIED 06/10/2018 ZHOU TAM Ot F41.9 ANXIETY DISORDER, UNSPECIFIED 06/10/2018 ZHOU TAM Ot G43.909 MIGRAINE, UNSP, NOT INTRACTABLE, WITHOUT 06/10/2018 BERNOT, TAM Ot I10 ESSENTIAL (PRIMARY) HYPERTENSION 06/10/2018 ZHOU TAM Ot K21.9 GASTRO- ESOPHAGEAL REFLUX DISEASE WITHOUT 06/10/2018 BERNMARIE TAM Ot R40.2142 COMA SCALE, EYES OPEN, SPONTANEOUS, EMR 06/10/2018 ZHOU TAM Ot R40.2252 COMA SCALE, BEST VERBAL RESPONSE, ORIENT 06/10/2018 ZHOU TAM Ot R40.2362 COMA SCALE, BEST MOTOR RESPONSE, OBEYS C 06/10/2018 ZHOU TAM Ot S09.90XA UNSPECIFIED INJURY OF HEAD, INITIAL ENCO 06/10/2018 TAM PEPERSON Ot S80.01XA CONTUSION OF RIGHT KNEE, INITIAL [...] MD Ot I25.10 ATHSCL HEART DISEASE OF [place] CORONARY 06/20/2018 PIERRE DE LA VEGA MD [...] SMO 06/21/2018 PRIYA ROUSE APRN Ot Z79.01 ALF (CURRENT) USE OF ANTICOAGULANT 06/21/2018 PRIYA ROUSE [...] SMO 06/24/2018 PRIYA ROUSE APRN Ot Z79.01 HEAD BONE GRINDER (CURRENT) USE OF ANTICOAGULANT 06/24/2018 PRIYA ROUSE [...] INITIAL ENCOUNTER 06/26/2018 PERFECTO MARVIN Ot Z79.01 HEAD BONE GRINDER (CURRENT) USE OF ANTICOAGULANT 06/26/2018 PERFECTO MARVIN Ot Z86.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 06/26/2018 PERFECTO MARVIN Ot Z88.0 ALLERGY STATUS TO PENICILLIN 06/26/2018 PERFECTO MARVIN Ot Z88.1 ALLERGY STATUS TO OTHER ANTIBIOTIC AGENT 06/26/2018 PERFECTO MARVIN Ot Z88.2 ALLERGY STATUS TO SULFONAMIDES STATUS 06/26/2018 PERFECTO MARVIN Ot Z88.4 ALLERGY STATUS TO ANESTHETIC AGENT STATU 06/26/2018 PERFECTO MAVRIN Ot Z88.5 ALLERGY STATUS TO NARCOTIC AGENT [...] DIABETES MELLITUS WITHOUT COMPLIC 06/29/2018 PRIYA ROUSE APRN Ot E78.00 PURE HYPERCHOLESTEROLEMIA, UNSPECIFIED 06/29/2018 PRIYA [...] INITIAL ENCOUNTER 06/29/2018 PERFECTO MARVIN Ot Z79.01 HEAD BONE GRINDER (CURRENT) USE OF ANTICOAGULANT 06/29/2018 PERFECTO MARVIN [...] INITIAL ENCOUNTER 07/02/2018 PERFECTO MARVIN Ot Z79.01 ALF (CURRENT) USE OF ANTICOAGULANT 07/02/2018 PERFECTO MARVIN [...] GONZALEZ DO Ot E03.9 HYPOTHYROIDISM, UNSPECIFIED 07/10/2018 IAN GONZALEZ DO K Ot E11.40 TYPE 2 DIABETES MELLITUS WITH DIABETIC N 07/10/2018 LISA DO IAN Aundrea Ot E66.01 MORBID (SEVERE) OBESITY DUE TO EXCESS CA 07/10/2018 LISA LAROSE IAN K Ot E78.00 PURE HYPERCHOLESTEROLEMIA, UNSPECIFIED 07/10/2018 LISA [...] Ot I10 ESSENTIAL (PRIMARY) HYPERTENSION 07/10/2018 LISA DO IAN K Ot J44.9 CHRONIC OBSTRUCTIVE PULMONARY DISEASE, U 07/10/2018 LISA IAN K Ot K21.9 GASTRO-ESOPHAGEAL REFLUX DISEASE WITHOUT 07/10/2018 LISA IAN K Ot M54.5 LOW BACK PAIN 07/10/2018 LISA DO IAN K Ot R40.2142 COMA SCALE, EYES OPEN, SPONTANEOUS, EMR 07/10/2018 LISA DO IAN K Ot R40.2252 COMA SCALE, BEST VERBAL RESPONSE, ORIENT 07/10/2018 LISA LAROSE IAN K Ot R40.2362 COMA SCALE, BEST MOTOR RESPONSE, OBEYS C 07/10/2018 IAN GONZALEZ DO Ot S30.0XXA CONTUSION OF LOWER BACK AND PELVIS, INIT 07/10/2018 LISA DO IAN K Ot W18.39XA OTHER FALL ON SAME LEVEL, INITIAL ENCOUN 07/10/2018 IAN GONZALEZ DO Ot Z68.43 BODY MASS INDEX (BMI) 50-59.9, ADULT 07/10/2018 IAN GONZALEZ DO Ot Z79.01 HEAD BONE GRINDER (CURRENT) USE OF ANTICOAGULANT 07/10/2018 IAN GONZALEZ [...] DISEASE, U 10/12/2018 TAM EPPERSON Ot K21.9 GASTRO- ESOPHAGEAL REFLUX DISEASE WITHOUT 10/12/2018 TAM EPPERSON Ot [...] Ot Z88.0 ALLERGY STATUS TO PENICILLIN 10/12/2018 TAM EPPERSON Ot Z88.1 ALLERGY STATUS TO [...] DISEASE, U 10/14/2018 TAM EPPERSON Ot K21.9 GASTRO- ESOPHAGEAL REFLUX DISEASE WITHOUT 10/14/2018 TAM EPPERSON Ot [...] EPPERSON Ot Z98.51 TUBAL LIGATION STATUS 12/05/2018 RAMONE BAIN, ANAMARIA Koch Ot J32.9 CHRONIC SINUSITIS, UNSPECIFIED 12/05/2018 ANAMARIA PACK MD Ot Z53.8 PROCEDURE AND TREATMENT NOT CARRIED OUT 12/05/2018 ANAMARIA PACK MD Ot Z98.890 OTHER SPECIFIED POSTPROCEDURAL STATES 01/02/2019 JULIA GUTIÉRREZ MD, Ot Z01.818 ENCOUNTER FOR OTHER PREPROCEDURAL EXAMIN 01/05/2019 JULIA GUTIÉRREZ MD Ot Z01.818 ENCOUNTER FOR OTHER PREPROCEDURAL EXAMIN 01/07/2019 JULIA GUTIÉRREZ MD, Ot E03.9 HYPOTHYROIDISM, UNSPECIFIED 01/07/2019 JULIA GUTIÉRREZ MD, Ot E11.9 TYPE 2 DIABETES MELLITUS WITHOUT COMPLIC 01/07/2019 JULIA GUTIÉRREZ MD, Ot E66.01 MORBID (SEVERE) OBESITY DUE TO EXCESS CA 01/07/2019 JULIA GUTIÉRREZ MD, Ot E78.1 PURE HYPERGLYCERIDEMIA 01/07/2019 JULIA GUTIÉRREZ MD, Ot F31.9 BIPOLAR DISORDER, UNSPECIFIED 01/07/2019 JULIA GUTIÉRREZ MD, Ot G47.33 OBSTRUCTIVE SLEEP APNEA (ADULT) (PEDIATR 01/07/2019 JULIA GUTIÉRREZ MD, Ot I10 ESSENTIAL (PRIMARY) HYPERTENSION 01/07/2019 JULIA GUTIÉRREZ MD, Ot J44.9 CHRONIC OBSTRUCTIVE PULMONARY DISEASE, U 01/07/2019 JULIA GUTÉIRREZ MD, Ot K21.0 GASTRO-ESOPHAGEAL REFLUX DISEASE WITH ES 01/07/2019 JULIA GUTIÉRREZ MD, Ot K29.70 GASTRITIS, UNSPECIFIED, WITHOUT BLEEDING 01/07/2019 JULIA GUTIÉRREZ MD, Ot K44.9 DIAPHRAGMATIC HERNIA WITHOUT OBSTRUCTION 01/07/2019 JULIA GUTIÉRREZ MD, Ot Z12.11 ENCOUNTER FOR SCREENING FOR MALIGNANT NE 01/07/2019 JULIA GUTIÉRREZ MD, Ot Z68.43 BODY MASS INDEX (BMI) 50-59.9, ADULT 01/07/2019 JULIA GUTIÉRREZ MD, Ot Z79.01 HEAD BONE GRINDER (CURRENT) USE OF ANTICOAGULANT 01/07/2019 JULIA GUTIÉRREZ MD, Ot Z79.899 OTHER ALF (CURRENT) DRUG THERAPY 01/07/2019 JULIA GUTIÉRREZ MD, Ot Z86.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 01/07/2019 JULIA GUTIÉRREZ MD, Ot Z96.651 PRESENCE OF RIGHT ARTIFICIAL KNEE JOINT 01/14/2019 JULIA GUTIÉRREZ MD, Ot E03.9 HYPOTHYROIDISM, UNSPECIFIED 01/14/2019 JULIA GUTIÉRREZ MD, Ot E11.9 TYPE 2 DIABETES MELLITUS WITHOUT COMPLIC 01/14/2019 JULIA GUTIÉRREZ MD, Ot E66.01 MORBID (SEVERE) OBESITY DUE TO EXCESS CA 01/14/2019 JULIA GUTIÉRREZ MD, Ot E78.1 PURE HYPERGLYCERIDEMIA 01/14/2019 JULIA GUTIÉRREZ MD, Ot F31.9 BIPOLAR DISORDER, UNSPECIFIED 01/14/2019 JULIA GUTIÉRREZ MD, Ot G47.33 OBSTRUCTIVE SLEEP APNEA (ADULT) (PEDIATR 01/14/2019 JULIA GUTIÉRREZ MD, Ot I10 ESSENTIAL (PRIMARY) HYPERTENSION 01/14/2019 JULIA GUTIÉRREZ MD, Ot J44.9 CHRONIC OBSTRUCTIVE PULMONARY DISEASE, U 01/14/2019 JULIA GUTIÉRREZ MD, Ot K21.0 GASTRO-ESOPHAGEAL REFLUX DISEASE WITH ES 01/14/2019 JULIA GUTIÉRREZ MD, Ot K29.70 GASTRITIS, UNSPECIFIED, WITHOUT BLEEDING 01/14/2019 JULIA GUTIÉRREZ MD, Ot K44.9 DIAPHRAGMATIC HERNIA WITHOUT OBSTRUCTION 01/14/2019 JULIA GUTIÉRREZ MD, Ot Z12.11 ENCOUNTER FOR SCREENING FOR MALIGNANT NE 01/14/2019 JULIA GUTIÉRREZ MD, Ot Z68.43 BODY MASS INDEX (BMI) 50-59.9, ADULT 01/14/2019 JULIA GUTIÉRREZ MD, Ot Z79.01 ALF (CURRENT) USE OF ANTICOAGULANT 01/14/2019 JULIA GUTIÉRREZ MD, Ot Z79.899 OTHER ALF (CURRENT) DRUG THERAPY 01/14/2019 JULIA GUTIÉRREZ MD, Ot Z86.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 01/14/2019 JULIA GUTIÉRREZ MD, Ot Z96.651 PRESENCE OF RIGHT ARTIFICIAL KNEE JOINT Procedures Code [place] [id number] ROUTINE VENIPUNCTURE LONG ANIMAL SCIENCE INSTRUCTOR, MARDIE A 04/03/2016 74661 COMPREHEN METABOLIC PANEL LONG ANIMAL SCIENCE INSTRUCTOR, MARDIE A 04/03/2016 03600 ASSAY OF FREE THYROXINE LONG ANIMAL SCIENCE INSTRUCTOR, MARDIE A 04/03/2016 90975 ASSAY THYROID STIM HORMONE LONG ANIMAL SCIENCE INSTRUCTOR, MARDIE A 04/03/2016 13963 COMPLETE CBC W/AUTO DIFF WBC LONG ANIMAL SCIENCE INSTRUCTOR, MARDIE A 04/03/2016 33752 ROUTINE VENIPUNCTURE LONG ANIMAL SCIENCE INSTRUCTOR, MARDIE A 06/25/2016 61302 PROTHROMBIN TIME LONG ANIMAL SCIENCE INSTRUCTOR, MARDIE A 06/25/2016 29862 ROUTINE VENIPUNCTURE LONG ANIMAL SCIENCE INSTRUCTOR, MARDIE A 07/13/2016 25736 METABOLIC PANEL TOTAL CA LONG ANIMAL SCIENCE INSTRUCTOR, MARDIE A 07/13/2016 69764 ROUTINE VENIPUNCTURE ZECHARIAH ANIMAL SCIENCE INSTRUCTORVALERY 03/06/2018 86652 COMPREHEN METABOLIC PANEL VALERY BOTELLO Megan 03/06/2018 82866 LIPID PANEL VALERY BOTELLO Megan 03/06/2018 70310 ASSAY CARBAMAZEPINE TOTAL ZECHARIAH STERLING VALERY Megan 03/06/2018 65239 URINALYSIS AUTO W/SCOPE VALERY BOTELLO Megan 03/06/2018 57554 ASSAY OF TOTAL THYROXINE ZECHARIAH STERLING VALERY Megan 03/06/2018 32029 ASSAY THYROID STIM HORMONE ZECHARIAH STERLING VALERY Megan 03/06/2018 79077 COMPLETE CBC W/AUTO DIFF WBC VALERY BOTELLO Megan 03/06/2018 37708 URINE CULTURE/COLONY COUNT VALERY BOTELLO Megan 03/06/2018 38644 ELECTROCARDIOGRAM TRACING VALERY BOTELLO Megan 03/06/2018 06662 EMERGENCY DEPT VISIT VALERY BOTELLO Megan 03/06/2018 Results Test Result Range COMPLETE BLOOD COUNT - 04/04/16 07:19 Platelet 250 10^3u 142-424 MPV 11.4 FL 9.4-12.4 Bibb # 0.69 10^3u 0.0-1.0 RBC 4.83 10^6u 4.04-6.13 Bibb % 5.7 % 0-12 RDW 17.0 % [...] Automated erythrocyte mean corpuscular hemoglobin concentration measurement (mass/volume) 31 g/dL 32-36 Automated erythrocyte distribution width ratio 18.7 % 10.0- 14.5 Automated blood platelet count (count/volume) 249 10*3/uL [...] Blood monocytes automated count (number/volume) 0.8 10*3 0.0- 1.0 Automated eosinophil count 0.3 10*3/uL 0.0-0.3 Automated [...] measurement in platelet poor plasma (mass/volume) - 05/02/18 20:18 Fibrin D-dimer FEU measurement in platelet [...] Serum or plasma aspartate aminotransferase measurement (enzymatic activity/volume) 29 U/L 5-34 Serum or plasma alanine aminotransferase measurement (enzymatic activity/volume) 25 U/L 0-55 Serum or plasma protein measurement (mass/volume) 7.1 g/dL 6.4-8.2 Serum or plasma albumin measurement (mass/volume) 3.3 g/dL 3.2-4.5 CALCIUM CORRECTED 9.5 mg/dL 8.5-10.1 Magnesium - 05/02/18 20:18 Magnesium 2.2 mg/dL 1.8-2.4 Serum or plasma troponin i.cardiac measurement (mass/volume) - 05/02/18 20:18 Serum or plasma troponin i.cardiac measurement (mass/volume) < ng/mL <0.30 Myoglobin, serum - 05/02/18 20:18 Myoglobin, serum 26.2 ng/mL 10.0-92.0 Serum or plasma troponin i.cardiac measurement (mass/volume) - 05/02/18 22:19 Serum or plasma troponin i.cardiac measurement (mass/volume) < ng/mL <0.30 Complete blood count (CBC) with automated [...] Automated erythrocyte mean corpuscular hemoglobin concentration measurement (mass/volume) 31 g/dL 32-36 Automated erythrocyte distribution width ratio 18.6 % 10.0- 14.5 Automated blood platelet count (count/volume) 236 10*3/uL [...] Blood monocytes automated count (number/volume) 0.9 10*3 0.0- 1.0 Automated eosinophil count 0.4 10*3/uL 0.0-0.3 Automated [...] Serum or plasma aspartate aminotransferase measurement (enzymatic activity/volume) 20 U/L 5-34 Serum or plasma alanine aminotransferase measurement (enzymatic activity/volume) 21 U/L 0-55 Serum or plasma protein measurement (mass/volume) 6.7 g/dL 6.4-8.2 Serum or plasma albumin measurement (mass/volume) 3.2 g/dL 3.2-4.5 CALCIUM CORRECTED 9.3 mg/dL 8.5-10.1 Complete urinalysis with reflex to culture - 05/10/18 20:38 Urine color determination YELLOW NRG Urine clarity determination CLEAR NRG Urine pH measurement by test strip 7 5-9 Specific gravity of urine by test strip 1.010 1.016-1.022 Urine protein assay by test strip, semi-quantitative [...] sediment leukocyte count by microscopy (number/high power field) NONE NRG Bacteria detection in urine sediment [...] Automated erythrocyte mean corpuscular hemoglobin concentration measurement (mass/volume) 31 g/dL 32-36 Automated erythrocyte distribution width ratio 18.7 % 10.0- 14.5 Automated blood platelet count (count/volume) 248 10*3/uL [...] Blood monocytes automated count (number/volume) 0.9 10*3 0.0- 1.0 Automated eosinophil count 0.3 10*3/uL 0.0-0.3 Automated [...] Serum or plasma aspartate aminotransferase measurement (enzymatic activity/volume) 26 U/L 5-34 Serum or plasma alanine aminotransferase measurement (enzymatic activity/volume) 22 U/L 0-55 Serum or plasma protein measurement (mass/volume) 7.4 g/dL 6.4-8.2 Serum or plasma albumin measurement (mass/volume) 3.4 g/dL 3.2-4.5 CALCIUM CORRECTED 9.2 mg/dL 8.5-10.1 Magnesium - 05/12/18 18:50 Magnesium 2.4 mg/dL 1.8-2.4 Myoglobin, serum - 05/12/18 18:50 Myoglobin, serum 23.2 ng/mL 10.0-92.0 Serum or plasma troponin i.cardiac measurement (mass/volume) - 05/12/18 18:50 Serum or plasma troponin i.cardiac measurement (mass/volume) < ng/mL <0.30 Lipase - 05/12/18 18:50 Lipase 43 U/L 8-78 Myoglobin, serum - 05/12/18 18:50 Myoglobin, serum 23.2 ng/mL 10.0-92.0 Lipase - 05/12/18 18:50 Lipase 43 U/L 8-78 Serum or plasma lithium measurement (moles/volume) - 05/12/18 18:50 BNP level < pg/mL <100.0 Serum or plasma troponin i.cardiac measurement (mass/volume) - 05/12/18 20:56 Serum or plasma troponin i.cardiac measurement (mass/volume) < ng/mL <0.30 Complete blood count (CBC) with automated [...] Automated erythrocyte mean corpuscular hemoglobin concentration measurement (mass/volume) 32 g/dL 32-36 Automated erythrocyte distribution width ratio 18.7 % 10.0- 14.5 Automated blood platelet count (count/volume) 261 10*3/uL [...] Blood monocytes automated count (number/volume) 1.0 10*3 0.0- 1.0 Automated eosinophil count 0.3 10*3/uL 0.0-0.3 Automated [...] Serum or plasma aspartate aminotransferase measurement (enzymatic activity/volume) 29 U/L 5-34 Serum or plasma alanine aminotransferase measurement (enzymatic activity/volume) 27 U/L 0-55 Serum or plasma protein measurement (mass/volume) 7.7 g/dL 6.4-8.2 Serum or plasma albumin measurement (mass/volume) 3.6 g/dL 3.2-4.5 CALCIUM CORRECTED 9.3 mg/dL 8.5-10.1 Magnesium - 05/23/18 18:37 Magnesium 2.1 mg/dL 1.8-2.4 Serum or plasma troponin i.cardiac measurement (mass/volume) - 05/23/18 18:37 Serum or plasma troponin i.cardiac measurement (mass/volume) < ng/mL <0.30 PT panel in platelet poor plasma [...] Automated erythrocyte mean corpuscular hemoglobin concentration measurement (mass/volume) 31 g/dL 32-36 Automated erythrocyte distribution width ratio 18.7 % 10.0- 14.5 Automated blood platelet count (count/volume) 277 10*3/uL [...] Serum or plasma aspartate aminotransferase measurement (enzymatic activity/volume) 26 U/L 5-34 Serum or plasma alanine aminotransferase measurement (enzymatic activity/volume) 29 U/L 0-55 Serum or plasma protein measurement (mass/volume) 8.2 g/dL 6.4-8.2 Serum or plasma albumin measurement (mass/volume) 3.8 g/dL 3.2-4.5 CALCIUM CORRECTED 9.7 mg/dL 8.5-10.1 Lipid 1996 panel - 06/18/18 11:21 Serum or plasma triglyceride measurement (mass/volume) 148 mg/dL <150 Serum or plasma cholesterol measurement (mass/volume) 125 mg/dL < 200 Serum or plasma cholesterol in HDL measurement (mass/volume) 30 mg/dL 40-60 Cholesterol in LDL [mass/volume] in serum or plasma by direct assay 78 mg/dL 1-129 Serum or plasma cholesterol in VLDL measurement (mass/volume) 30 mg/dL 5-40 Methicillin resistant Staphylococcus aureus (MRSA) screening culture - 06/18/18 11:21 Methicillin resistant Staphylococcus aureus (MRSA) screening [...] Automated erythrocyte mean corpuscular hemoglobin concentration measurement (mass/volume) 31 g/dL 32-36 Automated erythrocyte distribution width ratio 18.0 % 10.0- 14.5 Automated blood platelet count (count/volume) 228 10*3/uL [...] Blood monocytes automated count (number/volume) 1.0 10*3 0.0- 1.0 Automated eosinophil count 0.2 10*3/uL 0.0-0.3 Automated [...] Serum or plasma aspartate aminotransferase measurement (enzymatic activity/volume) 26 U/L 5-34 Serum or plasma alanine aminotransferase measurement (enzymatic activity/volume) 23 U/L 0-55 Serum or plasma protein measurement (mass/volume) 6.9 g/dL 6.4-8.2 Serum or plasma albumin measurement (mass/volume) 3.3 g/dL 3.2-4.5 CALCIUM CORRECTED 9.4 mg/dL 8.5-10.1 Magnesium - 06/29/18 16:59 Magnesium 2.1 mg/dL 1.8-2.4 Serum or plasma troponin i.cardiac measurement (mass/volume) - 06/29/18 16:59 Serum or plasma troponin i.cardiac measurement (mass/volume) < ng/mL <0.30 Myoglobin, serum - 06/29/18 16:59 Myoglobin, serum 29.6 ng/mL 10.0-92.0 Complete urinalysis with reflex to culture - 06/29/18 18:55 Urine color determination YELLOW NRG Urine clarity determination CLEAR NRG Urine pH measurement by test strip 7 5-9 Specific gravity of urine by test strip 1.005 1.016-1.022 Urine protein assay by test strip, semi-quantitative [...] sediment leukocyte count by microscopy (number/high power field) [HPF] NRG Bacteria detection in urine sediment [...] culture - 06/29/18 18:55 Bacterial urine culture [id number] NRG COLONY COUNT 50,000 CFU/ML NRG FTX;REPORTABLE ID REPORTED 06/30/18 17:05 NRG FREE TEXT ENTRY 2 SENSITIVITY REPORTED 07/01/18 14:05 NRG RML Sensitivity Panel - 06/29/18 18:55 Gentamicin susceptibility test by minimum inhibitory concentration <= NRG Trimethoprim/sulfamethoxazole susceptibility test by minimum inhibitoryconcentration R NRG Levofloxacin susceptibility test by minimum inhibitory concentration > NRG Ampicillin susceptibility test by minimum inhibitory concentration <= NRG Cefazolin susceptibility test by minimum inhibitory concentration 8 NRG Ceftriaxone susceptibility test by minimum inhibitory concentration <= NRG Ciprofloxacin susceptibility test by minimum inhibitory concentration > NRG Nitrofurantoin susceptibility test by minimum inhibitory concentration > NRG Amoxicillin and clavulanate potassium susc GERARDO <= NRG Serum or plasma troponin i.cardiac measurement (mass/volume) - 06/29/18 20:18 Serum or plasma troponin i.cardiac measurement (mass/volume) < ng/mL <0.30 Complete urinalysis with reflex to culture - 07/14/18 12:50 Urine color determination YELLOW NRG Urine clarity determination CLEAR NRG Urine pH measurement by test strip 7 5-9 Specific gravity of urine by test strip 1.010 1.016-1.022 Urine protein assay by test strip, semi-quantitative [...] sediment leukocyte count by microscopy (number/high power field) NONE NRG Bacteria detection in urine sediment [...] Status Pt. Type Provider Facility Loc./Unit Complaint [id number] 03/06/2018 06:30:00 03/12/2018 15:15:00 DIS Inpatient TRE GARCIA MD [facility] [id number] 03/06/2018 04:04:00 03/06/2018 06:24:00 DIS Emergency [facility]ERY BOTE[facility]O ER [id number] 01/27/2018 05:25:00 01/29/2018 13:00:00 DIS Inpatient TRE GARCIA MD [facility] [id number] 01/21/2018 04:30:00 01/23/2018 12:00:00 DIS Inpatient TRE GARCIA MD [facility] [id number] 07/13/2016 17:03:00 07/13/2016 17:03:00 DIS Outpatient [facility] OTHER [id number] 06/25/2016 13:51:00 06/25/2016 13:51:00 DIS Outpatient [facility] OTHER [id number] 04/03/2016 18:02:00 04/03/2016 18:02:00 DIS Outpatient [facility] OTHER [id number] 04/21/2018 15:16:00 Document Registration [id number] 03/10/2018 12:56:00 Document Registration [id number] 02/04/2018 16:41:00 Document Registration [id number] 01/07/2019 12:12:00 01/07/2019 15:45:00 DIS Outpatient JULIA GUTIÉRREZ MD [facility] ENDO SCREENING/REFLUX/CHEST PAIN [id number] 01/02/2019 05:38:00 01/02/2019 13:05:00 DIS Outpatient JULIA GUTIÉRREZ MD [facility] PREOP COLONOSCOPY/EGD [id number] 12/04/2018 08:46:00 12/04/2018 23:59:59 CLS Outpatient ANAMARIA PACK MD [facility] RAD CHRONIC SINUSITIS [id number] 10/12/2018 19:15:00 10/12/2018 21:58:00 DIS Emergency TAM EPPERSON [facility] ER FALL [id number] 07/14/2018 12:40:00 07/14/2018 13:31:00 DIS Outpatient ROSI HUTCHISON DO [facility] Z45.2 [id number] 07/14/2018 11:59:00 07/14/2018 11:59:00 CAN Preadmit ROSI HUTCHISON DO [facility] UTI [id number] 07/10/2018 18:36:00 07/10/2018 20:15:00 DIS Emergency IAN GONZALEZ DO [facility] ER FALL [id number] 07/02/2018 09:03:00 07/02/2018 23:59:59 CLS Outpatient PIERRE DE LA VEGA MD [facility] CARD HTN [id number] 06/29/2018 16:46:00 06/29/2018 23:59:59 CLS Emergency PRIYA ROUSE APRN [facility] ER CP [id number] 06/26/2018 17:59:00 06/26/2018 21:58:00 DIS Emergency PERFECTO MARVIN [facility] ER FALL [id number] 06/21/2018 18:26:00 06/21/2018 19:50:00 DIS Emergency PRIYA ROUSE CHIEF TECHNICIAN [facility] ER CP [id number] 06/18/2018 10:24:00 06/18/2018 16:15:00 DIS Outpatient PIERRE DE LA VEGA MD [facility] CATH ABN STRESS [id number] 06/16/2018 08:16:00 06/16/2018 23:59:59 CLS Outpatient PIERRE DE LA VEGA MD [facility] CARD HTN [id number] 06/08/2018 19:34:00 06/08/2018 21:20:00 DIS Emergency TAM EPPERSON [facility] ER FALL [id number] 05/30/2018 16:35:00 05/30/2018 17:56:00 DIS Emergency PRIYA ROUSE APRN [facility] ER FALL [id number] 05/23/2018 18:33:00 05/23/2018 19:54:00 DIS Emergency PRIYA ROUSE CHIEF TECHNICIAN [facility] ER CHEST PAIN L SIDE [id number] 05/12/2018 18:47:00 05/12/2018 22:06:00 DIS Emergency PRIYA ROUSE CHIEF TECHNICIAN [facility] ER CHEST PAIN [id number] 05/11/2018 20:56:00 05/11/2018 22:49:00 DIS Emergency TAM EPPERSON [facility] ER NECK PAIN [id number] 05/10/2018 19:09:00 05/10/2018 21:49:00 DIS Emergency PRIYA ROUSE CHIEF TECHNICIAN [facility] ER GENERAL [id number] 05/05/2018 19:57:00 05/05/2018 21:14:00 DIS Emergency TAM EPPERSON [facility] ER L KNEE PAIN [id number] 05/02/2018 20:10:00 05/03/2018 00:07:00 DIS Emergency GABRIELLE BAIN, EDEL Guzman [facility] ER CP [id number] 05/13/2014 14:35:00 05/13/2014 14:35:00 DIS Outpatient BEATRICE FRY [facility] ORTHO [id number] 04/22/2014 14:34:00 04/22/2014 14:34:00 DIS Outpatient BEATRICE FRY [facility] ORTHO
--- NOTE | 2019-02-21 21:05 | NUR ---
patient to radiology at this time.
[2019-02-21] MEDS ORDERED: FLT05NA16 (21:29)
[2019-02-21] MEDS ORDERED: CALC500T24 PO (21:29)
[2019-02-21] MEDS ORDERED: SUCR1TAB36 (21:29)
[2019-02-21] MEDS ORDERED: ROSU20TA2 (21:29)
--- NOTE | 2019-02-21 21:45 | Diagnostic Imaging Report ---
INDICATION: Fall. TIME OF EXAM: 9:19 p.m. EXAMINATION: Multiple views of the right femur were obtained. FINDINGS: Postop changes of right knee arthroplasty. Alignment at the hip is normal. The femoral head and neck are intact. Femur appears intact. No fractures are seen. IMPRESSION: No acute bony abnormality is detected. Dictated by: Dictated on workstation # [id number]
--- NOTE | 2019-02-21 21:46 | Diagnostic Imaging Report ---
INDICATION: Fall. TIME OF EXAM: 9:16 p.m. EXAMINATION: Right hip and pelvis. FINDINGS: Femora acetabular alignment is normal. Femoral head and neck are intact. No fractures are seen. Rami are intact. IMPRESSION: No acute bony abnormality is detected. Dictated by: Dictated on workstation # [id number]
--- NOTE | 2019-02-21 21:46 | Diagnostic Imaging Report ---
INDICATION: Fall. Time of exam: 9:22 PM Two views of the right knee show postop changes of total knee arthroplasty. Prosthetic elements are in good position. No fracture is seen. There is no dislocation or joint effusion. IMPRESSION: No acute abnormality is detected. Dictated by: Dictated on workstation # [id number]
--- NOTE | 2019-02-21 21:54 | Diagnostic Imaging Report ---
PROCEDURE: CT lumbar spine without contrast. TECHNIQUE: Multiple contiguous axial images were obtained through the lumbar spine without the use of intravenous contrast. Sagittal and coronal reformations were then performed. Auto Exposure Controls were utilized during the CT exam to meet ALARA standards for radiation dose reduction. INDICATION: Fall. Overall quality of the study is limited due to patient large body habitus. There appears to be fairly normal curvature and alignment of the lumbar spine. There appears to be anterior and central compression fracture deformity of the T11 vertebral body, however, this appears old. No acute fracture lines are seen. This was present on prior CT from 07/10/2018. No paraspinous hematoma is present at this level. Lumbar vertebrae demonstrate normal stature. There is generalized degenerative disc disease with variable disc space narrowing and marginal spurring. There is vacuum disc phenomena at multiple levels. The superior and inferior pubic rami are intact. Visualized hips appear to be intact. IMPRESSION: 1. Generalized lumbar spondylosis. No acute bony abnormality seen. 2. Findings suggestive of a chronic compression fracture deformity T11 vertebral body. Dictated by: Dictated on workstation # [id number]
[2019-02-21 22:36] VITALS: BP 129/88
== END 2019-02-21 22:46 ==
LOC: EDUNIT# 20:25 → ER 20:32
DX: S70.01XA Contusion of right hip, initial encounter (principal); S70.11XA Contusion of right thigh, initial encounter; S80.01XA Contusion of right knee, initial encounter; E11.42 Type 2 diabetes mellitus with diabetic polyneuropathy; E66.01 Morbid (severe) obesity due to excess calories; J44.9 Chronic obstructive pulmonary disease, unspecified; G47.30 Sleep apnea, unspecified; I10 Essential (primary) hypertension; E78.00 Pure hypercholesterolemia, unspecified; I25.10 Atherosclerotic heart disease of native coronary artery without angina pectoris; G43.909 Migraine, unspecified, not intractable, without status migrainosus; K21.9 Gastro-esophageal reflux disease without esophagitis; E03.9 Hypothyroidism, unspecified; F31.9 Bipolar disorder, unspecified; F41.9 Anxiety disorder, unspecified; Z86.718 Personal history of other venous thrombosis and embolism; F17.210 Nicotine dependence, cigarettes, uncomplicated; Z87.19 Personal history of other diseases of the digestive system; Z99.81 Dependence on supplemental oxygen; Z90.710 Acquired absence of both cervix and uterus; Z98.51 Tubal ligation status; Z89.421 Acquired absence of other right toe(s); Z88.1 Allergy status to other antibiotic agents; Z88.0 Allergy status to penicillin; Z88.6 Allergy status to analgesic agent; Z88.5 Allergy status to narcotic agent; Z88.8 Allergy status to other drugs, medicaments and biological substances; Z91.041 Radiographic dye allergy status; Z96.651 Presence of right artificial knee joint; W01.0XXA Fall on same level from slipping, tripping and stumbling without subsequent striking against object, initial encounter
CPT/HCPCS: 72131; 73552; 73560

== ENCOUNTER 2019-05-19 22:36 | Emergency (ER) | payer MEDICARE, MEDICAID ==
[~2019-05-19] VITALS: Ht 165.1 cm; Wt 160.0 kg
[~2019-05-19 22:36] MED LIST changes: +CALC500T24 PO; -DULO60CA58 PO; +DULO60CA59 PO; +FLT05NA16; -OMEP20CA12 PO; +OMEP20CA13 PO; +ROSU20TA2; -ROSU20TA31 PO; +ROSU20TA32 PO; +SUCR1TAB36
--- NOTE | 2019-05-19 22:44 | ED Chest Pain ---
General Stated Complaint: CHEST PAIN Source: patient Exam Limitations: no limitations (PRIYA ROUSE APRN) History of Present Illness Date Seen by Provider: May 19, 2019 Time Seen by Provider: 22:43 Initial Comments To ER with reports of central chest pain described as pressure starting 30 minutes before arrival. She is allergic to aspirin, EMS gave one nitroglycerin without improvement in pain. She had a cardiac catheterization earlier this year. Timing/Duration: 1/2 hour Severity/Quality: severe Location: central Radiation: no radiation Activities at Onset: none ASA po EMBEDDER: No NTG SL EMBEDDER: Yes Associated Symptoms: shortness of breath (PRIYA ROUSE APRN) Allergies and Home Medications Allergies Coded Allergies: Cephalosporins (Verified Allergy, Unknown, 02/21/19) Penicillins (Verified Allergy, Unknown, 02/21/19) Sulfa (Sulfonamide Antibiotics) (Verified Allergy, Unknown, 02/21/19) aspirin (Verified Allergy, Unknown, 02/21/19) cephalexin (Verified Allergy, Unknown, 02/21/19) codeine (Verified Allergy, Unknown, 02/21/19) diphenhydramine (Verified Allergy, Unknown, 02/21/19) erythromycin base (Verified Allergy, Unknown, 02/21/19) iodine (Verified Allergy, Unknown, 02/21/19) ketorolac (Verified Allergy, Unknown, 02/21/19) morphine (Verified Allergy, Unknown, 02/21/19) propoxyphene (Verified Allergy, Unknown, 02/21/19) tetracycline (Verified Allergy, Unknown, 02/21/19) Home Medications Albuterol Sulfate 1 Puff Puff, 2 PUFF IH TID PRN for SHORTNESS OF BREATH, (Reported) 1 PUFF = 90 MCG Carvedilol 6.25 Mg Tablet, 6.25 MG PO BID, (Reported) HOLD FOR SBP<100 OR PULSE <60 Clonazepam 0.25 Mg Tab.rapdis, 0.25 MG PO BID, (Reported) Cranberry Extract 500 Mg Tablet, 1,000 MG PO BID, (Reported) Diclofenac Sodium 100 Gm Gel..gram., 4 GM TP Q8H PRN for KNEE PAIN, (Reported) Divalproex Sodium 500 Mg Tab.er.24h, 500 MG PO HS, (Reported) Dulaglutide 0.75 Mg/0.5 Ml Pen.injctr, 0.75 MG SQ WEEK, (Reported) Duloxetine HCl 60 Mg Capsule.dr, 60 MG PO BID, (Reported) Gabapentin 600 Mg Tablet, 600 MG PO BID, (Reported) Gabapentin 300 Mg Capsule, 300 MG PO DAILY@1700, (Reported) Hydroxyzine HCl 25 Mg Tablet, 25 MG PO BID, (Reported) Levothyroxine Sodium 112 Mcg Tablet, 224 MCG PO DAILY, (Reported) take 2 (112mcg) tabs Mag Hydrox/Al Hydrox/Simeth 30 Ml Oral.susp, 30 ML PO Q4H PRN for INDIGESTION, (Reported) Montelukast Sodium 10 Mg Tablet, 10 MG PO HS, (Reported) Olanzapine 10 Mg Tablet, 10 MG PO HS, (Reported) Omeprazole 20 Mg Capsule.dr, 20 MG PO BID, (Reported) Pantoprazole Sodium 40 Mg Tablet.dr, 40 MG PO DAILY Prescribed by: JULIA GUTIÉRREZ on 01/07/19 1245 Rivaroxaban 20 Mg Tablet, 20 MG PO HS, (Reported) Rosuvastatin Calcium 20 Mg Tablet, 20 MG PO HS, (Reported) Saccharomyces Boulardii 250 Mg Capsule, 250 MG PO BID, (Reported) Topiramate 100 Mg Tablet, 100 MG PO BID, (Reported) Tramadol HCl 50 Mg Tablet, 100 MG PO BID, (Reported) take 2 (50mg) Tabs Patient Home Medication List Home Medication List Reviewed: Yes (PRIYA ROUSE APRN) Review of Systems Review of Systems Constitutional: see HPI EENTM: No Symptoms Reported Respiratory: No Symptoms Reported Cardiovascular: See HPI, Chest Pain Gastrointestinal: No Symptoms Reported Genitourinary: No Symptoms Reported Musculoskeletal: no symptoms reported Skin: no symptoms reported Psychiatric/Neurological: No Symptoms Reported Endocrine: No Symptoms Reported (Embolize) Hematologic/Lymphatic: No Symptoms Reported (PRIYA ROUSE APRN) Past Gabyxcw-Aixitq-Tsufye Hx Patient Social History Type Used: Cigarettes 2nd Hand Smoke Exposure: Yes Recent Foreign Travel: No Contact w/Someone Who Travel: No Recent Hopitalizations: No (PIRYA ROUSE APRN) Immunizations Up To Date Tetanus Booster (TDap): Unknown Date of Pneumonia Vaccine: May 04, 2009 (PRIYA ROUSE APRN) Seasonal Allergies Seasonal Allergies: Yes (PRIYA ROUSE APRN) Past Medical History Surgeries: Yes Amputation, Cardiac, Hysterectomy, Joint Replacement, Oophorectomy, Orthopedic, Tubal Ligation Respiratory: Yes (O2 AT 2L/NC) Chronic Bronchitis, Sleep Apnea, COPD Currently Using CPAP: Yes (WITH O2) Cardiac: Yes (DVT-LEG; CARDIAC CATH 05/2018--NO INTERVENTION/ NON-OCCLUSIVE DISEASE) Chronic Edema/Swelling, Coronary Artery Disease, Deep Vein Thrombosis, High Cholesterol, Hypertension Neurological: Yes (PERIPHEARL NEUROPATHY) Headaches /Migraines, Neuropathy [employer] History: Hysterectomy, Tubal Ligation, Menopausal Genitourinary: Yes Bladder Infection Gastrointestinal: Yes (GASTRITIS) Gastroesophageal Reflux, Hiatal Hernia Musculoskeletal: Yes Degenerate Disk Disease, Arthritis, Chronic Back Pain Endocrine: Yes (MORBID OBESITY) Hypothyroidsim, Diabetes, Non-Insulin dep HEENT: Yes (CHRONIC SINUSITIS) Cancer: No Psychosocial: Yes Anxiety, Bipolar, Depression Integumentary: Yes (hx of CELLULITIS) Blood Disorders: No (PRIYA ROUSE APRN) Family Medical History No Pertinent Family Hx (PRIYA ROUSE APRN) Physical Exam Vital Signs Vital Signs - First Documented (RICHI BEAR) Vital Signs Capillary Refill : (PRIYA ROUSE APRN) Height, Weight, BMI Height: 5'5.00" Weight: 353lbs. 4.0oz. 160.840013tj; 58.3 BMI Method:Stated General Appearance: No Apparent Distress, WD/WN, Obese Respiratory: No Accessory Muscle Use, No Respiratory Distress Cardiovascular: Regular Rate, Rhythm, Normal Peripheral Pulses Gastrointestinal: Normal Bowel Sounds, Non Tender, Soft Neurologic/Psychiatric: Alert, Oriented x3 Skin: Normal Color, Warm/Dry (PRIYA ROUSE APRN) Progress/Results/Core Measures Results/Orders Lab Results Laboratory Tests Test 05/19/19 22:43 Range/Units White Blood Count 10.5 4.3-11.0 10^3/uL Red Blood Count 4.22 L 4.35-5.85 10^6/uL Hemoglobin 12.0 11.5-16.0 G/DL Hematocrit 39 35-52 % Mean Corpuscular Volume 92 80-99 FL Mean Corpuscular Hemoglobin 28 25-34 PG Mean Corpuscular Hemoglobin Concent 31 L 32-36 G/DL Red Cell Distribution Width 16.4 H 10.0-14.5 % Platelet Count 207 130-400 10^3/uL Mean Platelet Volume 9.9 7.4-10.4 FL Neutrophils (%) (Auto) 60 42-75 % Lymphocytes (%) (Auto) 26 12-44 % Monocytes (%) (Auto) 11 0-12 % Eosinophils (%) (Auto) 2 0-10 % Basophils (%) (Auto) 0 0-10 % Neutrophils # (Auto) 6.3 1.8-7.8 X 10^3 Lymphocytes # (Auto) 2.8 1.0-4.0 X 10^3 Monocytes # (Auto) 1.1 H 0.0-1.0 X 10^3 Eosinophils # (Auto) 0.3 0.0-0.3 10^3/uL Basophils # (Auto) 0.0 0.0-0.1 10^3/uL Prothrombin Time 16.1 H 12.2-14.7 SEC INR Comment 1.2 0.8-1.4 Activated Partial Thromboplast Time 36 H 24-35 SEC Sodium Level 143 135-145 MMOL/L Potassium Level 3.6 3.6-5.0 MMOL/L Chloride Level 109 H 98-107 MMOL/L Carbon Dioxide Level 24 21-32 MMOL/L Anion Gap 10 5-14 MMOL/L Blood Urea Nitrogen 8 7-18 MG/DL Creatinine 0.75 0.60-1.30 MG/DL Estimat Glomerular Filtration Rate > 60 BUN/Creatinine Ratio 11 Glucose Level 161 H 70-105 MG/DL Calcium Level 8.6 8.5-10.1 MG/DL Corrected Calcium 9.2 8.5-10.1 MG/DL Magnesium Level 2.0 1.6-2.4 MG/DL Total Bilirubin 0.3 0.1-1.0 MG/DL Aspartate Amino Transf (AST/SGOT) 30 5-34 U/L Alanine Aminotransferase (ALT/SGPT) 20 0-55 U/L Alkaline Phosphatase 121 40-136 U/L Myoglobin 26.7 10.0-92.0 NG/ML Troponin I < 0.028 <0.028 NG/ML B-Type Natriuretic Peptide 11.1 <100.0 PG/ML Total Protein 7.7 6.4-8.2 GM/DL Albumin 3.2 3.2-4.5 GM/DL (RICHI BEAR) My Orders (RICHI BEAR) Vital Signs/I&O 9/24/19 9/24/19 22:40 22:40 Temp 36.9 Pulse 88 Resp 20 B/P (MAP) 158/70 (99) Pulse Ox 94 O2 Delivery Room Air Room Air (RICHI BEAR) Progress Progress Note : Time: 00:07 Progress Note Patient is not having any worsening symptoms. She has a known history of with a clean catheter from 2018. Her initial troponin is negative. We talked about doing a delta troponin and the patient has refused to do this and she just wants to go back to the [facility]. We have offered Toradol which she has declined. We'll allow her to follow-up with primary care. (RICHI BEAR) Departure Communication (Admissions) 2257-care turned over to Dr. Bear, labs are pending. Patient asked the nurse if she could have something besides Tylenol for pain control. She was offered Tylenol but declined. (PRIYA ROUSE APRN) Impression Primary Impression: Chest pain Qualified Codes: R07.9 - Chest pain, unspecified Disposition: 01 HOME, SELF-CARE Condition: Stable Departure-Patient Inst. Decision time for Depature: 00:08 (RICHI BEAR) Referrals: ROSI HUTCHISON DO (PCP/Family) Primary Care Physician Patient Instructions: Chest Pain That Is Not Caused by the Heart (DC) Add. Discharge Instructions: Please follow-up with primary care. PRIYA ROUSE APRN May 19, 2019 22:44 RICHI BEAR May 20, 2019 00:08
[2019-05-19 22:51] LABS: BASOPHILS % (AUTO) 0 % (0-10); EOSINOPHILS # (AUTO) 0.3 10^3/uL (0.0-0.3); EOSINOPHILS % (AUTO) 2 % (0-10); HEMATOCRIT 39 % (35-52); LYMPHOCYTES # (AUTO) 2.8 X 10^3 (1.0-4.0); LYMPHOCYTES % (AUTO) 26 % (12-44); MEAN CORPUSCULAR HEMOGLOBIN 28 PG (25-34); MEAN CORPUSCULAR HGB CONC 31 G/DL (32-36); MEAN CORPUSCULAR VOLUME 92 FL (80-99); MEAN PLATELET VOLUME 9.9 FL (7.4-10.4); MONOCYTES # (AUTO) 1.1 X 10^3 (0.0-1.0); MONOCYTES % (AUTO) 11 % (0-12); NEUTROPHILS # (AUTO) 6.3 X 10^3 (1.8-7.8); NEUTROPHILS % (AUTO) 60 % (42-75); PLATELET COUNT 207 10^3/uL (130-400); RED CELL DISTRIBUTION WIDTH 16.4 % (10.0-14.5); WHITE BLOOD COUNT 10.5 10^3/uL (4.3-11.0)
[2019-05-19 23:12] LABS: INR 1.2 (0.8-1.4); PROTHROMBIN TIME PATIENT 16.1 SEC (12.2-14.7)
[2019-05-19 23:15] LABS: ALANINE AMINOTRANSFERASE 20 U/L (0-55); ALBUMIN 3.2 GM/DL (3.2-4.5); ALKALINE PHOSPHATASE 121 U/L (40-136); BILIRUBIN,TOTAL 0.3 MG/DL (0.1-1.0); BUN/CREATININE RATIO 11; CALCIUM 8.6 MG/DL (8.5-10.1); CARBON DIOXIDE 24 MMOL/L (21-32); CHLORIDE 109 MMOL/L (98-107); CREATININE SERUM 0.75 MG/DL (0.60-1.30); GFR ESTIMATED > 60; GLUCOSE 161 MG/DL (70-105); POTASSIUM 3.6 MMOL/L (3.6-5.0); SODIUM 143 MMOL/L (135-145); TOTAL PROTEIN 7.7 GM/DL (6.4-8.2)
--- NOTE | 2019-05-20 00:10 | NUR ---
PT REFUSES TO HAVE 2ND TROPONIN DRAWN AT THIS TIME. DR. MORGAN NOTIFIED.
--- NOTE | 2019-05-20 00:15 | NUR ---
REQUESTS TO LEAVE AMA, INFORMED OF BENEFITS STAYING AND POSSIBLE OUTCOMES IF LEAVES, VERBALIZED UNDERSTANDING. [facility] NOTIFIED OF PT REQUEST TO LEAVE AMA AND TRANSFER BACK TO FACILITY. [facility] STATE THAT THEY WILL NOT BE ABLE TO TRANSFER BACK TO FACILITY.
--- NOTE | 2019-05-20 00:20 | NUR ---
[facility] CALLED TO TAKE PT BACK TO [facility] WILL NOT TRANSFER R/T PT NOT BED BOUND.
[2019-05-20 00:35] VITALS: BP 140/70
--- NOTE | 2019-05-20 05:56 | Diagnostic Imaging Report ---
INDICATION: Chest pain. COMPARISON: 07/09/2018. FINDINGS: There is mild scarring in the right lung base. Lungs are otherwise clear. Heart is not enlarged. There is no pulmonary edema. No pneumothorax or pleural effusion. There is old rib deformity of the right sixth rib. IMPRESSION: No acute changes when compared with previous exam. Dictated by: Dictated on workstation # [id number]
== END 2019-05-20 00:37 | disposition left against medical advice (07) ==
LOC: EDUNIT# 22:36 → ER 22:36
DX: R07.9 Chest pain, unspecified (principal); I10 Essential (primary) hypertension; E11.40 Type 2 diabetes mellitus with diabetic neuropathy, unspecified; J44.9 Chronic obstructive pulmonary disease, unspecified; E78.00 Pure hypercholesterolemia, unspecified; I25.10 Atherosclerotic heart disease of native coronary artery without angina pectoris; F41.9 Anxiety disorder, unspecified; F31.9 Bipolar disorder, unspecified; G47.30 Sleep apnea, unspecified; G43.909 Migraine, unspecified, not intractable, without status migrainosus; K21.9 Gastro-esophageal reflux disease without esophagitis; E66.01 Morbid (severe) obesity due to excess calories; E03.9 Hypothyroidism, unspecified; Z86.718 Personal history of other venous thrombosis and embolism; Z99.89 Dependence on other enabling machines and devices; Z98.51 Tubal ligation status; Z95.9 Presence of cardiac and vascular implant and graft, unspecified; Z88.1 Allergy status to other antibiotic agents; Z88.0 Allergy status to penicillin; Z88.2 Allergy status to sulfonamides; Z88.6 Allergy status to analgesic agent; Z88.5 Allergy status to narcotic agent; Z88.8 Allergy status to other drugs, medicaments and biological substances; Z79.01 Long term (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 of anticoagulants; Z77.22 Contact with and (suspected) exposure to environmental tobacco smoke (acute) (chronic); Z90.710 Acquired absence of both cervix and uterus
CPT/HCPCS: 36415; 71045; 80053; 83735; 83874; 83880; 84484; 85025; 85610; 85730; 93005; 93041

== ENCOUNTER 2019-06-23 08:25 | Outpatient (CLI) | payer MEDICARE, MEDICAID ==
[~2019-06-23] VITALS: Ht 165 cm; Wt 159.8 kg
[~2019-06-23 08:25] MED LIST changes: -ROSU20TA2; +ROSU20TA2 PO; -SUCR1TAB36; +SUCR1TAB36 PO
[2019-06-23] MEDS ORDERED: METO5TAB6 PO (09:11)
[2019-06-23] MEDS ORDERED: CALA177S11 TP (09:11)
[2019-06-23] MEDS ORDERED: POTA20TA15 PO (09:11)
[2019-06-23] MEDS ORDERED: BUSP15TA60 PO (09:11)
[2019-06-23] MEDS ORDERED: ACID1CAP2 PO (09:11)
[2019-06-23] MEDS ORDERED: LIDO700A45 TP (09:11)
[2019-06-23] MEDS ORDERED: LEVO300T5 PO (09:11)
[2019-06-23] MEDS ORDERED: CALC500T47 PO (09:11)
[2019-06-23] MEDS ORDERED: FLUT15.88 NS (09:11)
== END 2019-06-23 09:19 | disposition home or self-care (01) ==
LOC: PREOP 08:25
PROVIDERS: ATTEND Otolaryngology Otolaryngology/Facial Plastic Surgery
DX: Z01.818 Encounter for other preprocedural examination (principal)

== ENCOUNTER 2019-07-02 08:18 | Day surgery (SDC) | payer MEDICARE, MEDICAID ==
[~2019-07-02] VITALS: Ht 165 cm; Wt 159.8 kg
[2019-07-02] VITALS (13 sets, daily range): BP systolic 117–195; BP diastolic 58–96
[~2019-07-02 08:18] MED LIST changes: +ACID1CAP2 PO; +BUSP15TA60 PO; +CALA177S11 TP; +CALC500T47 PO; +FLUT15.88 NS; +LEVO300T5 PO; +LIDO700A45 TP; +METO5TAB6 PO; +POTA20TA15 PO
[2019-07-02] MEDS ORDERED: LACTATED RINGERS 1,000 ML IV PRN (08:50)
[2019-07-02] MEDS ORDERED: CLINDAMYCIN 600 MG/50 ML IVPB 50 ML IV ONE ×2 (09:00→09:04)
[2019-07-02 09:06] LABS: BASOPHILS % (AUTO) 0 % (0-10); EOSINOPHILS # (AUTO) 0.2 10^3/uL (0.0-0.3); EOSINOPHILS % (AUTO) 2 % (0-10); HEMATOCRIT 38 % (35-52); HEMOGLOBIN 11.4 G/DL (11.5-16.0); LYMPHOCYTES # (AUTO) 2.5 X 10^3 (1.0-4.0); LYMPHOCYTES % (AUTO) 26 % (12-44); MEAN CORPUSCULAR HEMOGLOBIN 27 PG (25-34); MEAN CORPUSCULAR HGB CONC 30 G/DL (32-36); MEAN CORPUSCULAR VOLUME 91 FL (80-99); MEAN PLATELET VOLUME 10.1 FL (7.4-10.4); MONOCYTES # (AUTO) 0.8 X 10^3 (0.0-1.0); MONOCYTES % (AUTO) 8 % (0-12); NEUTROPHILS % (AUTO) 63 % (42-75); PLATELET COUNT 214 10^3/uL (130-400); WHITE BLOOD COUNT 9.5 10^3/uL (4.3-11.0)
[2019-07-02] MEDS ORDERED: RT-ALBUTEROL/IPRATROPIUM 3 ML (DUONEB) VIAL ONE (09:11)
[2019-07-02] MEDS ORDERED: FAMOTIDINE 20MG/2ML IV (PEPCID) IV ONE (09:15)
[2019-07-02] MEDS ORDERED: RT-ALBUTEROL SULF 2.5 MG/3 ML PRE-MIX VIAL INH ONE (09:15)
[2019-07-02] MEDS ORDERED: RT-ALBUTEROL SULF 2.5 MG/3 ML PRE-MIX VIAL ONE (09:16)
[2019-07-02 09:23] LABS: BUN/CREATININE RATIO 13; CALCIUM 8.7 MG/DL (8.5-10.1); CARBON DIOXIDE 25 MMOL/L (21-32); CHLORIDE 107 MMOL/L (98-107); CREATININE SERUM 0.78 MG/DL (0.60-1.30); GFR ESTIMATED > 60; GLUCOSE 138 MG/DL (70-105); SODIUM 141 MMOL/L (135-145)
--- NOTE | 2019-07-02 09:25 | Progress Note-Pre Operative ---
Pre-Operative Progress Note H&P Reviewed The H&P was reviewed, patient examined and no changes noted. Date Seen by Provider: Jul 02, 2019 Time Seen by Provider: 09:15 Date H&P Reviewed: Jul 02, 2019 Time H&P Reviewed: 09:15 Pre-Operative Diagnosis: Revision Right ESS ANAMARIA PACK MD Jul 02, 2019 09:25 POS
[2019-07-02] MEDS ORDERED: SUCCINYLCHOLINE INJ 100 MG/5 ML SYR ONE (09:35)
[2019-07-02] MEDS ORDERED: SEVOFLURANE (ULTANE) 15 ML INHAL SOLN ONE ×3 (09:35→10:57)
[2019-07-02] MEDS ORDERED: GLYCOPYRROLATE 0.2 MG/ML (ROBINUL) 2 ML VIAL ONE (09:35)
[2019-07-02] MEDS ORDERED: ROCURONIUM 10 MG/ML 5 ML SYRINGE IV ONE (09:35)
[2019-07-02] MEDS ORDERED: fentaNYL INJECTION 100 MCG/2 ML AMP ONE (09:35)
[2019-07-02] MEDS ORDERED: LIDOCAINE PF 2% 5 ML (XYLOCAINE) VIAL ONE (09:35)
[2019-07-02] MEDS ORDERED: proPOfol 200 MG/20 ML (DIPRIVAN) VIAL IV ONE (09:35)
[2019-07-02] MEDS ORDERED: ONDANSETRON 4 MG/2 ML (SDV) Z0FRAN ONE (09:35)
[2019-07-02] MEDS ORDERED: NEOSTIGMINE 3 MG/3 ML VIAL ONE (09:35)
[2019-07-02] MEDS ORDERED: MIDAZOLAM 2 MG/2 ML (VERSED) VIAL ONE (09:36)
[2019-07-02] MEDS ORDERED: BSS 15 ML ONE (09:42)
[2019-07-02] MEDS ORDERED: COCAINE HCL 4% 2 ML SYR ONE (09:42)
[2019-07-02] MEDS ORDERED: PHENYLEPHRINE 0.5% NASAL SPR (NEO-SYNEPHRINE) REG ONE ×2 (09:42→14:15)
[2019-07-02] MEDS ORDERED: LIDOCAINE/EPI 1%-1:100,000 (XYLOCAINE) 20ML ONE (09:43)
[2019-07-02] MEDS ORDERED: D5 1/2 NS W/KCL 20 MEQ/L 1,000 ML IV SCH (10:57)
--- NOTE | 2019-07-02 10:57 | Progress Note-Post Operative ---
Post-Operative Progess Note Surgeon (s)/Casino Accountant (s) Surgeon ANAMARIA PACK MD Casino Accountant n/a Pre-Operative Diagnosis Revision Right ESS Post-Operative Diagnosis same Post-Op Procedure Note Date of Procedure: Jul 02, 2019 Name of Procedure Performed: Revision Right ESS Description & Findings Description and Findings: n/a Anesthesia Type get Estimated Blood Loss minimal Packing none. Specimen(s) collected/removed right sinus disease, culture-aerobic anaerobic and fungal to lab ANAMARIA PACK MD Jul 02, 2019 10:57 POS
[2019-07-02] MEDS ORDERED: PROMETHAZINE INJ 25 MG/ML (PHENERGAN) AMP IVP PRN (11:00)
[2019-07-02] MEDS ORDERED: ACETAMINOPHEN 325 MG TABLET PO PRN (11:00)
[2019-07-02] MEDS ORDERED: ONDANSETRON 4 MG/2 ML (SDV) Z0FRAN IVP PRN (11:15)
[2019-07-02] MEDS ORDERED: fentaNYL INJECTION 100 MCG/2 ML AMP IVP ONE (11:15)
[2019-07-02] MEDS ORDERED: LEVO500T2 PO (13:13)
[2019-07-02] MEDS ORDERED: LIDOCAINE/EPI 1%-1:100,000 (XYLOCAINE) 20ML INJ ONE (14:15)
[2019-07-02] MEDS ORDERED: COCAINE HCL 4% 2 ML SYR TOP ONE (14:15)
[2019-07-02] MEDS ORDERED: BSS 15 ML IR PRN (14:15)
== END 2019-07-02 14:20 | disposition home or self-care (01) ==
LOC: SDC 08:18
PROVIDERS: ATTEND Otolaryngology Otolaryngology/Facial Plastic Surgery
DX: J32.9 Chronic sinusitis, unspecified (principal); I10 Essential (primary) hypertension; E78.5 Hyperlipidemia, unspecified; J44.9 Chronic obstructive pulmonary disease, unspecified; G47.33 Obstructive sleep apnea (adult) (pediatric); K21.9 Gastro-esophageal reflux disease without esophagitis; E11.9 Type 2 diabetes mellitus without complications; E03.9 Hypothyroidism, unspecified; E66.01 Morbid (severe) obesity due to excess calories; F17.200 Nicotine dependence, unspecified, uncomplicated; F41.9 Anxiety disorder, unspecified; Z88.6 Allergy status to analgesic agent; Z88.1 Allergy status to other antibiotic agents; Z88.5 Allergy status to narcotic agent; Z88.0 Allergy status to penicillin; Z88.2 Allergy status to sulfonamides; Z88.8 Allergy status to other drugs, medicaments and biological substances; Z68.43 Body mass index [BMI] 50.0-59.9, adult; Z79.899 Other long term (current) drug therapy
CPT/HCPCS: 36415; 80048; 82962; 85025; 87070; 87075; 87077; 87081; 87101; 87186; 87205; 94640; 94760

== ENCOUNTER 2020-01-29 08:03 | Outpatient (RCR) | payer MEDICARE, MEDICAID ==
[~2020-01-29] VITALS: Ht 165.1 cm; Wt 152.7 kg
[~2020-01-29 08:03] MED LIST changes: +CETI10TA17 PO; +FLUT15.845 NS; -FLUT15.88 NS; +LEVO500T2 PO; +MIRA25TA PO; -MONT10TA24 PO; +MONT10TA26 PO; -OMEP20CA13 PO; +OMEP20CA18 PO; +PANT40TA3 PO; +PRIM50TA33 PO; +RIVA20TA PO; +SODI0.5GEL TP; -TRAM50TA2 PO; +TRM50T PO
== END 2020-01-29 14:02 | disposition home or self-care (01) ==
LOC: PREOP 08:03
PROVIDERS: ATTEND Obstetrics & Gynecology
DX: Z01.812 Encounter for preprocedural laboratory examination (principal); Z20.828 Contact with and (suspected) exposure to other viral communicable diseases; N89.8 Other specified noninflammatory disorders of vagina
CPT/HCPCS: 87635

== ENCOUNTER 2020-02-02 06:09 | Day surgery (SDC) | payer MEDICARE, MEDICAID ==
[~2020-02-02] VITALS: Ht 171.6 cm; Wt 148.6 kg
[2020-02-02] VITALS (11 sets, daily range): BP systolic 113–160; BP diastolic 48–98
--- OUTSIDE RECORDS SUMMARY | 2020-02-02 06:22 | XMS REPORT | Continuity of Care Document ---
Author Organization Unknown Address Unknown Phone Unavailable Allergies Active Description Code Type Severity Reaction Onset Reported/Identified Relationship to Patient Clinical Status Yes aspirin [id number] Drug Unk nown N/A Yes banana Food Unknown N/A Yes cephalexin [id number] Drug Unknown N/A Yes codeine d44860 Drug Unk nown N/A Yes diphenhydrAMINE z02570 Drug Unknown N/A Yes erythromycin base f08206 Drug Unknown N/A Yes Fish Food Unknown N/A Yes iodine s14917 Other Unk nown N/A Yes ketorolac u49221 Drug U nknown N/A Yes Latex Environment Un known N/A Yes Milk Products Food U nknown N/A Yes morphine y73181 Drug Un known N/A Yes Mushroom Food Unknown N/A Yes oxyCODONE b06150 Drug U nknown N/A Yes penicillin u06248 Drug Unknown N/A Yes propoxyphene l38028 Drug Unknown N/A Yes sulfonamides Drug Un known N/A Yes tetracycline c49809 Drug Unknown N/A Yes ASPIRIN 1191 Drug Allergy N/A N/A Yes BENADRYL [id number] Drug Allergy N/A N/A Yes CEPHALOSPORINS Drug Allergy N/A N/A Yes CODEINE Drug Allergy N/A N/A Yes DARVON 505383 Drug Allergy N/A N/A Yes ERYTHROMYCIN [id number] Jonatan g Allergy N/A N/A Yes IODINE 5933 Drug Allergy N/A N/A Yes KEFLEX [id number] Drug Allergy N/A N/A Yes MORPHINE Drug Allergy N/A N/A Yes PENICILLINS Drug Allergy N/A N/A Yes SULFA ANTIBIOTICS Drug Allergy N/A N/A Yes TETRACYCLINE 47140 Drug Allergy N/A N/A Yes TORADOL 427795 Drug Allergy N/A N/A Yes ASPIRIN 1191 Drug Allergy N/A N/A Yes BENADRYL [id number] Drug Allergy N/A N/A Yes DARUNAVIR-COBICISTAT 9329160 Drug Allergy N/A N/A Yes DARZALEX [id number] Drug Allergy N/A N/A Yes ERYTHROMYCIN [id number] Jonatan g Allergy N/A N/A Yes IODINE 5933 Drug Allergy N/A N/A Yes KEFLEX 05063144591 Drug Allergy N/A N/A Yes MORPHINE SULFATE 87517753711 Drug Allergy N/A N/A Yes PENICILLIN Drug Allergy N/A N/A Yes PERCOCET 88786738220 Drug Allergy N/A N/A Yes SULFA Drug Allergy N/A N/A Yes SUPRAX 54953706486 Drug Allergy N/A N/A Yes TETRACYCLINE HCL 93988911575 Drug Allergy N/A N/A Yes TORODOL Drug Allergy N/A N/A Yes aspirin [id number] Drug Allergy Unknown N/A 11/26/2015 Yes codeine X578977733 Drug Allergy Unknown N/A 11/26/2015 Yes diphenhydramine [id number] D rug Allergy Unknown N/A 11/26/2015 Yes erythromycin base F271947114 Drug Allergy Unknown N/A 11/26/2015 Yes ketorolac T540441414 Drug Allergy Unknown N/A 11/26/2015 Yes morphine D639573972 Drug Allergy Unknown N/A 11/26/2015 Yes tetracycline F337376836 Drug Allergy Unknown N/A 11/26/[address] ug Allergy Unknown N/A 12/06/2015 Yes Iodine and Iodide Containing Produc E555706820 Drug Allergy Unknown N/A 12/06/2015 Yes Penicillins [id number] Drug Aller gy Unknown N/A 12/06/2015 Yes Sulfa (Sulfonamide Antibiotics) K27105 0491 Drug Allergy Unknown N/A 016 Yes aspirin Q595050569 Drug Allergy Unknown N/A 02/21/2019 Yes cephalexin U897939702 Drug Allerg y Unknown N/A 02/21/[address] ug Allergy Unknown N/A 02/21/2019 Yes codeine T289313022 Drug Allergy Unknown N/A 02/21/2019 Yes diphenhydramine D310385808 D rug Allergy Unknown N/A 02/21/2019 Yes erythromycin base P187469761 Drug Allergy Unknown N/A 02/21/2019 Yes iodine C151693677 Drug Allergy Unknown N/A 02/21/2019 Yes ketorolac H204187608 Drug Allergy Unknown N/A 02/21/2019 Yes morphine T851863906 Drug Allergy Unknown N/A 02/21/2019 Yes Penicillins J347946030 Drug Aller gy Unknown N/A 02/21/2019 Yes propoxyphene T369580868 Drug Allergy Unknown N/A 02/21/2019 Yes Sulfa (Sulfonamide Antibiotics) L47487 0491 Drug Allergy Unknown N/A 019 Yes tetracycline [id number] Drug Allergy Unknown N/A 02/21/2019 Medications Medication Packaging Start Date St op Date Route Dosage Sig FENTANYL Transdermal 06/30/2015 07/25/2015 Transdermal 1010 every 3 days ZYRTEC ALLERGY ORAL 07/25/2015 01/22/2017 ORAL 3030 daily TYLENOL EXTRA STRENGTH ORAL 07/25/2015 ORAL 851605 urmila ry 4 hours TYLENOL ORAL 07/25/20 15 ORAL 049270 every 6 hours TRAZODONE HCL ORAL 07/25/2015 08/22/2016 ORAL 3030 at bedtime TRAMADOL HCL ORAL 07/25/2015 08/04/2015 ORAL q4-6h TOPIRAMATE ORAL 07/2508/30/2016 ORAL 6060 twice d aily Q-TUSSIN ORAL 015 08/22/2016 ORAL PROAIR HFA Inhalation 07/25/2015 08/30/2016 Inhalation POTASSIUM CHLORIDE ER ORAL 07/25/2015 08/22/2016 ORAL 3030 daily OMEPRAZOLE ORAL 07/2508/22/2016 ORAL 3030 twice d aily NORCO ORAL 07/25/2015 08/04/2015 ORAL 2020 twice d aily breakthrough MUCINEX ORAL 07/25/20 15 08/04/2015 ORAL 2020 twice d aily MOBIC ORAL 07/25/2015 ORAL 3030 twice da stepan LOPERAMIDE A-D ORAL 07/25/2015 07/30/2015 ORAL LEVOTHYROXINE SODIUM ORAL 07/25/2015 08/22/2016 ORAL 3030 daily GABAPENTIN ORAL 07/2508/22/2016 ORAL 9090 3 times a day FENTANYL Transdermal 07/25/2015 08/22/2016 Transdermal 1010 every 3 days DULOXETINE HCL ORAL 07/25/2015 ORAL 3030 dasia y CYMBALTA ORAL 015 ORAL 3030 daily COUMADIN ORAL 015 08/27/2016 ORAL 3030 every o ther day CARVEDILOL ORAL 07/2510/24/2017 ORAL 6060 twice d aily CARBAMAZEPINE ORAL 07/25/2015 10/24/2017 ORAL 6060 twice daily BUSPAR ORAL 5 10/24/2017 ORAL 6060 three t imes daily BIOTIN 5000 Oral 06/2808/22/2016 Oral twice d aily ATIVAN ORAL 5 08/04/2015 ORAL every 6 hours NERISSA ALLERGY ORAL 07/25/2015 ORAL 3030 dasia y ACIDOPHILUS/PECTIN ORAL 07/25/2015 10/28/2017 ORAL daily ABILIFY ORAL 07/25/20 15 ORAL 3030 daily NITROSTAT Sublingual 10/24/2015 Sublingual [id number] MINTOX ORAL 6 01/22/2017 ORAL MILK OF MAGNESIA ORAL 10/24/2015 01/22/2017 ORAL for constipation LOPERAMIDE A-D ORAL 10/24/2015 10/29/2015 ORAL as directed LIDOCAINE External 10/24/2015 02/01/2017 External four times each day TOPIRAMATE ORAL 10/2410/28/2017 ORAL 6060 twice d aily TRAMADOL HCL ORAL 01/31/2016 02/11/2017 ORAL 4040 4 times a day SPIRONOLACTONE ORAL 01/31/2016 08/22/2016 ORAL every other day LORAZEPAM ORAL 201502/10/2016 ORAL every 6 hours DULOXETINE HCL ORAL 01/31/2016 10/28/2017 ORAL daily ABILIFY ORAL 01/31/20 16 10/28/2017 ORAL daily ATROVENT NASAL 016 02/16/2016 NASAL 6060 3 times a day SYNTHROID ORAL 201510/24/2017 ORAL 3030 daily NYSTATIN External 04/12/2016 External 6060 3 times a day HYDROXYZINE HCL ORAL 05/14/2016 10/24/2017 ORAL 3030 daily for itching AMLODIPINE BESYLATE ORAL 07/04/2016 08/27/2016 ORAL 9090 daily LISINOPRIL ORAL 07/0501/22/2017 ORAL 3030 daily COUMADIN ORAL 016 10/26/2017 ORAL 4848 daily BACTROBAN External 08/07/2016 08/21/2016 External 2222 3 times a day TRAMADOL HCL ORAL 08/22/2016 04/15/2017 ORAL 2020 daily IPRATROPIUM BROMIDE Nasal 08/22/2016 Nasal 11 ATIVAN ORAL 6 09/01/2016 ORAL 3030 three t imes daily AMLODIPINE BESYLATE ORAL 08/22/2016 10/24/2017 ORAL 3030 daily NYSTATIN External 08/27/2016 External 6060 3 times a day ATROVENT NASAL 017 09/06/2016 NASAL 6060 3 times a day ATIVAN ORAL 7 12/24/2016 ORAL 6060 every 1 2 hours ATIVAN ORAL 7 10/28/2017 ORAL 3030 every 1 2 hours TRAZODONE HCL ORAL 01/22/2017 ORAL 3030 MYLANTA ORAL 01/23/20 17 10/28/2017 ORAL daily PROAIR HFA Inhalation 02/01/2017 10/26/2017 Inhalation 8.58.5 every 6 hours OMEPRAZOLE ORAL 02/0110/28/2017 ORAL 6060 twice d aily LIDOCAINE External 02/01/2017 External f our times each day IPRATROPIUM BROMIDE Nasal 02/01/2017 02/22/2017 Nasal 11 IMDUR ORAL 02/01/2017 10/24/2017 ORAL 3030 at bedt nuria GABAPENTIN ORAL 02/0110/24/2017 ORAL 918065 3 times a day DIFLUCAN ORAL 017 02/02/2017 ORAL 55 daily IPRATROPIUM BROMIDE Inhalati on 02/22/2017 10/28/2017 Inhalation 11 three times daily VANCOMYCIN HCL 0 03/05/2017 10/28/2017 twice d aily TRAMADOL HCL ORAL 04/05/2017 04/15/2017 ORAL 2020 daily NAPHCON-A OPHTHALMIC 04/05/2017 04/15/2017 OPHTHALMIC 8080 four times daily DULOXETINE HCL ORAL 04/05/2017 10/28/2017 ORAL 3030 daily NYSTATIN EXTERNAL 06/03/2017 06/10/2017 EXTERNAL 6060 3 times a day SYNTHROID ORAL 201711/23/2017 ORAL 3030 daily METOCLOPRAMIDE HCL ORAL 10/24/2017 11/23/2017 ORAL 6060 twice daily ISOSORBIDE MONONITRATE ER OR AL 10/24/2017 11/23/2017 ORAL 3030 daily HYDROXYZINE HCL ORAL 10/24/2017 01/15/2018 ORAL 3030 daily for itching GABAPENTIN ORAL 10/2411/23/2017 ORAL 160662 3 times a day CARVEDILOL ORAL 10/2411/23/2017 ORAL 6060 twice d aily CARBAMAZEPINE ORAL 10/24/2017 11/23/2017 ORAL 6060 twice daily BUSPIRONE HCL ORAL 10/24/2017 11/23/2017 ORAL 9090 three times daily AMLODIPINE BESYLATE ORAL 10/24/2017 11/23/2017 ORAL 3030 daily PROAIR HFA Inhalation 10/26/2017 01/13/2018 Inhalation 8.58.5 every 6 hours COUMADIN ORAL 018 11/26/2017 ORAL 3030 daily TRAMADOL HCL ORAL 10/28/2017 ORAL q 6 hours TOPAMAX ORAL 10/29/19 18 ORAL 6060 twice da stepan OMEPRAZOLE ORAL 10/2811/12/2017 ORAL 6060 daily IPRATROPIUM-ALBUTEROL Inhala tion 10/28/2017 Inhalation CYMBALTA ORAL 018 ORAL 3030 daily CRANBERRY ORAL 2017 ORAL twice ea ch day CHLORASEPTIC SORE THROAT ORA L 10/28/2017 ORAL q 2 hrs ABILIFY ORAL 10/29/19 18 ORAL 3030 daily OMEPRAZOLE ORAL 11/1212/12/2017 ORAL 6060 twice d aily TOPAMAX 11/20/19 18 ORAL 60 twice da stepan TEGRETOL 018 ORAL 120 4 times a day SYNTHROID 2017 ORAL 30 daily REGLAN 8 ORAL 120 before m eals and bedtime PROAIR HFA 11/19 Inhalation 8.5 every 6 hours PRILOSEC ML 018 ORAL 30 NORVASC 11/20/19 18 ORAL 30 daily LEVAQUIN 018 Oral 5 once eac h day ISOSORBIDE MONONITRATE ER 11/19/2017 ORAL 30 dasia y HYDROXYZINE HCL 11/19/2017 ORAL 40 4 ti mes a day GABAPENTIN 11/19 ORAL 90 3 times a day CYMBALTA 018 ORAL 30 daily COUMADIN 018 ORAL 30 daily CARVEDILOL 11/19 ORAL 60 twice da stepan BUSPIRONE HCL ORAL 60 twice da stepan ABILIFY 11/20/19 18 ORAL 30 daily MEDROL ORAL 8 12/01/2017 ORAL 2121 as dire cted COUMADIN ORAL 018 12/20/2017 ORAL 3030 daily SINGULAIR ORAL 2017 ORAL 3030 daily HYDROXYZINE HCL ORAL 12/16/2017 01/15/2018 ORAL 3030 daily for itching COUMADIN ORAL 018 01/19/2018 ORAL 3535 daily SINGULAIR ORAL 2017 ORAL 3030 daily PROAIR HFA Inhalation 01/13/2018 Inhalation 8.58.5 every 6 hours XARELTO ORAL 01/18/20 18 ORAL 3030 daily Problems Date Dx Coded Attending Type Code Diagnosis Diagnosed By 07/25/1330 ROSI HUTCHISON DO Ot N39.0 URINARY TRACT INFECTION, SITE NOT SPECIF 11/26/2015 Other F17.210 NICOTINE DEPENDENCE, CIGARETTES, UNCOMPLICATED 11/26/2015 Other K21.9 G MICKI- ESOPHAGEAL REFLUX DISEASE WITHOUT ESOPHAGITIS 11/26/2015 Other R07.9 C HEST PAIN, UNSPECIFIED 11/27/2015 Other M25.561 PAIN IN RIGHT KNEE 11/27/2015 Other W19.XXXA UNSPECIFIED FALL, INITIAL ENCOUNTER 11/30/2015 Other I50.9 H EART FAILURE, UNSPECIFIED 11/30/2015 Other J44.1 C HRONIC OBSTRUCTIVE PULMONARY DISEASE W (ACUTE) EXACERBATION 11/30/2015 Other J45.901 UNSPECIFIED ASTHMA WITH (ACUTE) EXACERBATION 12/03/2015 Other M25.551 PAIN IN RIGHT HIP 12/03/2015 Other S93.401A SPRAIN OF UNSPECIFIED LIGAMENT OF RIGHT ANKLE, INIT ENCNTR 12/03/2015 Other W01.0XXA FALL SAME LEV FROM SLIP/TRIP W/O STRIKE AGAINST OBJECT, INIT 12/06/2015 Other F17.210 NICOTINE DEPENDENCE, CIGARETTES, UNCOMPLICATED 12/06/2015 Other F41.1 G ENERALIZED ANXIETY DISORDER 12/06/2015 Other R07.89 OTHER CHEST PAIN 04/03/2016 ELISEO KELLY E03 .9 Hypothyroidism, unspecified 04/03/2016 LONG ELISEO STERLING I10 Essential (primary) hypertension 04/17/2016 IAN BROOKS APRN Other G89.29 OTHER CHRONIC PAIN 04/17/2016 IAN BROOKS APRN Other M54.16 RADICULOPATHY, LUMBAR REGION 04/17/2016 IAN BROOKS APRN Other M54.5 LOW BACK PAIN 04/18/2016 ABDIEL ROMERO MD Other G89.29 OTHER CHRONIC PAIN 04/18/2016 ABDIEL ROMERO MD Other M54.16 RADICULOPATHY, LUMBAR REGION 04/18/2016 ABDIEL ROMERO MD Other M54.5 LOW BACK PAIN 04/18/2016 ABDILE ROMERO MD Other M62.830 MUSCLE SPASM OF BACK 06/25/2016 ELISEO KELLY I82.409 Acute embolism and thombos unsp deep vn unsp lower ext remity 06/30/2016 Other R05 COUGH 06/30/2016 Other R07.89 OTHER CHEST PAIN 07/13/2016 ELISEO KELLY I10 Essential (primary) hypertension 07/16/2016 IAN BROOKS APRN Other S70.01XA CONTUSION OF RIGHT HIP, INITIAL ENCOUNTER 07/16/2016 IAN BROOKS APRN Other W18.30XA FALL ON SAME LEVEL, UNSPECIFIED, INITIAL ENCOUNTER 07/16/2016 IAN BROOKS APRN Other Y92.[address] IN ALF PLACE 07/20/2016 BENIGNO PALACIOS Other S 83.91XA SPRAIN OF UNSPECIFIED SITE OF RIGHT KNEE, INITIAL ENCO UNTER 07/20/2016 BENIGNO PALACIOS Other W 19.XXXA UNSPECIFIED FALL, INITIAL ENCOUNTER 07/31/2016 ABDIEL ROMERO MD Other E66.09 OTHER OBESITY DUE TO EXCESS CALORIES 07/31/2016 ABDIEL ROMERO MD Other F17.210 NICOTINE DEPENDENCE, CIGARETTES, UNCOMPLICATED 07/31/2016 ABDIEL ROMERO MD Other G89.29 OTHER CHRONIC PAIN 07/31/2016 ABDIEL ROMERO MD Other M54.9 DORSALGIA, UNSPECIFIED 07/31/2016 ABDIEL ROMERO MD Other W01.198A FALL SAME LEV FROM SLIP/TRIP W STRIKE AGNST OTH OBJECT , INIT 07/31/2016 ABDIEL ROMERO MD Other Y92.[address] ALF PLACE 08/05/2016 MEME MILLS APRN Other M54.9 DORSALGIA, UNSPECIFIED 08/05/2016 MEME MILLS APRN Other S32.000A WEDGE COMPRESSION FRACTURE OF UNSP LUMBAR VERTEBRA, IN IT 08/05/2016 MEME MILLS APRN Other W18.39XA OTHER FALL ON SAME LEVEL, INITIAL ENCOUNTER 08/05/2016 MEME MILLS APRN Other Y92.[address] OF OCCURRENCE OF THE EXTERNAL CAUSE 08/05/2016 MEME MILLS APRN Other Z91.81 HISTORY OF FALLING 09/10/2016 ANDREW SULTANA APRN Other F17.210 NICOTINE DEPENDENCE, CIGARETTES, UNCOMPLICATED 09/10/2016 ANDREW SULTANA APRN Other I10 ESSENTIAL (PRIMARY) HYPERTENSION 09/10/2016 ANDREW SULTANA APRN Other J44.9 CHRONIC OBSTRUCTIVE PULMONARY DISEASE, UNSPECIFIED 09/10/2016 ANDREW SULTANA APRN Other K21.9 GASTRO-ESOPHAGEAL REFLUX DISEASE WITHOUT ESOPHAGITIS 09/10/2016 ANDREW SULTANA APRN Other R07.89 OTHER CHEST PAIN 01/23/2018 TRE GARCIA MD E03.9 Hypothyroidism, unspecified 01/23/2018 TRE GARCIA MD E87.6 Hypokalemia 01/23/2018 TRE GARCIA MD F17.200 Nicotine dependence, unspecified, uncomplicated 01/23/2018 TRE GARCIA MD F31.4 Bipolar disord, crnt epsd depress, sev, w/o psych feat ures 01/23/2018 TRE GARCIA MD F43.10 Post-traumatic stress disorder, unspecified 01/23/2018 TRE GARCIA MD F60.9 Personality disorder, unspecified 01/23/2018 TRE GARCIA MD G62.9 Polyneuropathy, unspecified 01/23/2018 TRE GARCIA MD I10 Essential (primary) hypertension 01/29/2018 TRE GARCIA MD B96.4 Proteus (mirabilis) (morganii) causing dis classd elsw hr 01/29/2018 TRE GARCIA MD F31.4 Bipolar disord, crnt epsd depress, sev, w/o psych feat ures 01/29/2018 TRE GARCIA MD F43.10 Post-traumatic stress disorder, unspecified 01/29/2018 TRE GARCIA MD N39.0 Urinary tract infection, site not specified 02/18/2018 Other I82.403 ACUTE EMBOLISM AND THOMBOS UNSP DEEP VEINS OF LOW EXTRM, BI 02/18/2018 Other I82.603 ACUTE EMBOLISM AND THOMBOS UNSP VEINS OF UP EXTREM, BI 02/18/2018 Other Z79.899 OTHER LINE AND FRAME POLER (CURRENT) DRUG THERAPY 02/18/2018 Other Z79.899 OTHER LINE AND FRAME POLER (CURRENT) DRUG THERAPY 02/18/2018 Other Z79.01 [facility] (CURRENT) USE OF ANTICOAGULANTS 02/18/2018 Other E78.2 M IXED HYPERLIPIDEMIA 02/18/2018 Other I10 ESS ENTIAL (PRIMARY) HYPERTENSION 02/18/2018 Other I82.409 ACUTE EMBOLISM AND THOMBOS UNSP DEEP VN UNSP LOWER EXTREMITY 02/18/2018 Other J44.9 C HRONIC OBSTRUCTIVE PULMONARY DISEASE, UNSPECIFIED 02/18/2018 Other R07.1 C HEST PAIN ON BREATHING 02/18/2018 Other R60.0 L OCALIZED EDEMA 02/18/2018 Other I82.409 ACUTE EMBOLISM AND [...] VN UNSP LOWER EXTREMITY 02/18/2018 Other E78.2 M IXED HYPERLIPIDEMIA 02/18/2018 Other I10 ESS ENTIAL (PRIMARY) HYPERTENSION 02/18/2018 Other I82.409 ACUTE EMBOLISM AND THOMBOS UNSP DEEP VN UNSP LOWER EXTREMITY 02/18/2018 Other J44.9 C HRONIC OBSTRUCTIVE PULMONARY DISEASE, UNSPECIFIED 02/18/2018 Other R07.1 C HEST PAIN ON BREATHING 02/18/2018 Other R60.0 L OCALIZED EDEMA 02/18/2018 Other Z86.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SIS AND EMBOLISM 02/18/2018 Other I82.409 ACUTE EMBOLISM AND THOMBOS UNSP DEEP VN UNSP LOWER EXTREMITY 02/18/2018 Other I82.409 ACUTE EMBOLISM AND THOMBOS UNSP DEEP VN UNSP LOWER EXTREMITY 02/18/2018 ELISEO CATHERINE DERMATOLOGY PHYSICIAN Other I82.409 ACUTE EMBOLISM AND THOMBOS UNSP DEEP VN UNSP LOWER EXT REMITY 03/06/2018 VALERY BOTELLO E03 .9 Hypothyroidism, unspecified 03/06/2018 VALERY BOTELLO E78 .5 Hyperlipidemia, unspecified 03/06/2018 VALERY BOTELLO F31 .9 Bipolar disorder, unspecified 03/06/2018 VALERY BOTELLO F41 .1 Generalized anxiety disorder 03/06/2018 VALERY BOTELLO J43 .9 Emphysema, unspecified 03/06/2018 VALERY BOTELLO L03 .90 Cellulitis, unspecified 03/06/2018 VALERY BOTELLO M17 .12 Unilateral primary osteoarthritis, left knee 03/06/2018 VALERY BOTELLO N39 .0 Urinary tract infection, site not specified 03/06/2018 VALERY BOTELLO R45.851 Suicidal ideations 03/06/2018 VALERY BOTELLO Z68 .42 Body mass index (BMI) 45.0-49.9, adult 03/06/2018 VALERY BOTELLO Z79 .01 [facility] (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 of anticoagulants 03/06/2018 VALERY BOTELLO Z86.718 Personal history of other venous thrombosis and emboli sm 03/12/2018 TRE GARCIA MD E03.9 Hypothyroidism, unspecified 03/12/2018 TRE GARCIA MD F17.200 Nicotine dependence, unspecified, uncomplicated 03/12/2018 TRE GARCIA MD F31.4 Bipolar disord, crnt epsd depress, sev, w/o psych feat ures 03/12/2018 TRE GARCIA MD F43.10 Post-traumatic stress disorder, unspecified 03/12/2018 TRE GARCIA MD F60.3 Borderline personality disorder 03/12/2018 TRE GARCIA MD G89.29 Other chronic pain 03/12/2018 TRE GARCIA MD J30.9 Allergic rhinitis, unspecified 03/19/2018 Other I73.9 P ERIPHERAL VASCULAR DISEASE, UNSPECIFIED 05/03/2018 EDEL ANTHONY MD [...] I10 ESSENTIAL (PRIMARY) HYPERTENSION 05/03/2018 EDEL ANTHONY MD Ot J44.9 CHRONIC OBSTRUCTIVE PULMONARY DISEASE, U 05/03/2018 EDEL ANTHONY MD Ot K21.9 GASTRO-ESOPHAGEAL REFLUX DISEASE WITHOUT 05/03/2018 [...] TO NARCOTIC AGENT STATUS 05/03/2018 EDEL ANTHONY MD, Ot Z88.8 ALLERGY STATUS TO OTH DRUG/MEDS/BIOL SUB 05/03/2018 EDEL ANTHONY MD, Ot Z91.041 RADIOGRAPHIC DYE ALLERGY STATUS 05/05/2018 BLESSING EPPERSONIS Ot E03.9 HYPOTHYROIDISM, UNSPECIFIED 05/05/2018 ZHOU TAM Ot E11.9 TYPE 2 DIABETES MELLITUS WITHOUT COMPLIC 05/05/2018 ZHOU TAM Ot E78.00 PURE HYPERCHOLESTEROLEMIA, UNSPECIFIED 05/05/2018 BERNMARIE TAM Ot F17.200 NICOTINE DEPENDENCE, UNSPECIFIED, UNCOMP 05/05/2018 ZHOU TAM Ot F32.9 MAJOR DEPRESSIVE DISORDER, SINGLE EPISOD 05/05/2018 BLESSING EPPERSONIS Ot F41.9 ANXIETY DISORDER, UNSPECIFIED 05/05/2018 ZHOU TAM Ot G43.909 MIGRAINE, UNSP, NOT INTRACTABLE, WITHOUT 05/05/2018 ZHOU TAM Ot I10 ESSENTIAL (PRIMARY) HYPERTENSION 05/05/2018 ZHOU TAM Ot K21.9 GASTRO-ESOPHAGEAL REFLUX DISEASE WITHOUT 05/05/2018 ZHOU TAM Ot M25.562 PAIN IN LEFT KNEE 05/05/2018 ZHOU TAM Ot W19.XXXA UNSPECIFIED FALL, INITIAL ENCOUNTER 05/05/2018 BLESSING EPPERSONIS Ot X50.1XXA OVEREXERTION FROM PROLONGED STATIC OR AW 05/05/2018 ZHOU TAM Ot Y92.[address] IN [facility] 05/05/2018 BLESSING EPPERSONIS Ot Z86.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 05/05/2018 ZHOU TAM Ot Z88.0 ALLERGY STATUS TO PENICILLIN 05/05/2018 ZHOU TAM Ot Z88.1 ALLERGY STATUS TO OTHER ANTIBIOTIC AGENT 05/05/2018 ZHOU TAM Ot Z88.2 ALLERGY STATUS TO SULFONAMIDES STATUS 05/05/2018 BLESISNG EPPERSONIS Ot Z88.5 ALLERGY STATUS TO NARCOTIC AGENT STATUS 05/05/2018 ZHOU TAM Ot Z88.8 ALLERGY STATUS TO OTH DRUG/MEDS/BIOL SUB 05/05/2018 BLESSING EPPERSONIS Ot Z91.041 RADIOGRAPHIC DYE ALLERGY STATUS 05/08/2018 GABRIELLE MD, EDEL D Ot E03.9 HYPOTHYROIDISM, UNSPECIFIED 05/08/2018 EDEL ANTHONY [...] OBSTRUCTIVE PULMONARY DISEASE, U 05/08/2018 EDEL ANTHONY MD Ot K21.9 GASTRO-ESOPHAGEAL REFLUX DISEASE WITHOUT 05/08/2018 EDEL ANTHONY MD Ot R07.89 OTHER CHEST PAIN 05/08/2018 EDEL ANTHONY MD Ot Z86.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 05/08/2018 EDEL ANTHONY MD Ot Z88.0 ALLERGY STATUS TO PENICILLIN 05/08/2018 EDEL ANTHONY MD Ot Z88.1 ALLERGY STATUS TO OTHER ANTIBIOTIC AGENT 05/08/2018 EDEL ANTHONY MD Ot Z88.2 ALLERGY STATUS TO SULFONAMIDES STATUS 05/08/2018 EDEL ANTHONY MD Ot Z88.5 ALLERGY STATUS TO NARCOTIC AGENT STATUS 05/08/2018 EDEL ANTHONY MD Ot Z88.8 ALLERGY STATUS TO OTH DRUG/MEDS/BIOL SUB 05/08/2018 EDEL ANTHONY MD Ot Z91.041 RADIOGRAPHIC DYE ALLERGY STATUS 05/10/2018 PRIYA ROUSE APRN Ot E03 .9 HYPOTHYROIDISM, UNSPECIFIED 05/10/2018 PRIYA ROUSE APRN Ot E11 .9 TYPE 2 DIABETES MELLITUS WITHOUT COMPLIC 05/10/2018 PRIYA ROUSE APRN Ot E78.00 PURE HYPERCHOLESTEROLEMIA, UNSPECIFIED 05/10/2018 PRIYA ROUSE APRN Ot G43.909 MIGRAINE, UNSP, NOT INTRACTABLE, WITHOUT 05/10/2018 PRIYA ROUSE APRN Ot I10 ESSENTIAL (PRIMARY) HYPERTENSION 05/10/2018 PRIYA ROUSE APRN Ot K21 .9 GASTRO-ESOPHAGEAL REFLUX DISEASE WITHOUT 05/10/2018 PRIYA ROUSE [...] AND TENDON AT N 05/10/2018 PRIYA ROUSE APRN Ot V00.811A FALL FROM MOVING WHEELCHAIR (POWERED), I 05/10/2018 PRIYA ROUSE APRN Ot W22.09XA STRIKING AGAINST OTHER STATIONARY OBJECT 05/10/2018 PRIYA ROUSE APRN Ot Z79.01 [facility] (CURRENT) USE OF ANTICOAGULANT 05/10/2018 PRIYA ROUSE APRN Ot Z86.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 05/10/2018 PRIYA ROUSE APRN Ot Z88 .0 ALLERGY STATUS TO PENICILLIN 05/10/2018 PRIYA ROUSE APRN Ot Z88 .1 ALLERGY STATUS TO OTHER ANTIBIOTIC AGENT 05/10/2018 PRIYA ROUSE APRN Ot Z88 .2 ALLERGY STATUS TO SULFONAMIDES STATUS 05/10/2018 PRIYA ROUSE APRN Ot Z88 .4 ALLERGY STATUS TO ANESTHETIC AGENT STATU 05/10/2018 PRIYA ROUSE APRN Ot Z88 .5 ALLERGY STATUS TO NARCOTIC AGENT STATUS 05/10/2018 PRIYA ROUSE APRN Ot Z88 .6 ALLERGY STATUS TO ANALGESIC AGENT STATUS 05/10/2018 PRIYA ROUSE APRN Ot Z88 .8 ALLERGY STATUS TO OTH DRUG/MEDS/BIOL SUB 05/11/2018 TAM EPPERSON Ot E03.9 HYPOTHYROIDISM, UNSPECIFIED 05/11/2018 ZHOU TAM Ot E11.9 TYPE 2 DIABETES MELLITUS WITHOUT COMPLIC 05/11/2018 BERNMARIE TAM Ot E78.00 PURE HYPERCHOLESTEROLEMIA, UNSPECIFIED 05/11/2018 BERNMARIE TAM Ot F32.9 MAJOR DEPRESSIVE DISORDER, SINGLE EPISOD 05/11/2018 ZHOU TAM Ot F41.9 ANXIETY DISORDER, UNSPECIFIED 05/11/2018 BLESSING EPPERSONIS Ot G43.909 MIGRAINE, UNSP, NOT INTRACTABLE, WITHOUT 05/11/2018 ZHOU TAM Ot I10 ESSENTIAL (PRIMARY) HYPERTENSION 05/11/2018 ZHOU TAM Ot K21.9 GASTRO-ESOPHAGEAL REFLUX DISEASE WITHOUT 05/11/2018 BLESSING EPPERSONIS Ot M54.2 CERVICALGIA 05/11/2018 BLESSING EPPERSONIS Ot S13.4XXA SPRAIN OF LIGAMENTS OF CERVICAL SPINE, I 05/11/2018 BLESSING EPPERSONIS Ot W19.XXXA UNSPECIFIED FALL, INITIAL ENCOUNTER 05/11/2018 TAM EPPERSON Ot W22.09XA STRIKING AGAINST OTHER STATIONARY OBJECT 05/11/2018 BLESSING EPPERSONIS Ot Z79.01 LINE AND FRAME POLER (CURRENT) USE OF ANTICOAGULANT 05/11/2018 BLESSING EPPERSONIS Ot Z86.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 05/11/2018 BLESSING EPPERSONIS Ot Z88.0 ALLERGY STATUS TO PENICILLIN 05/11/2018 BLESSING EPPERSONIS Ot Z88.1 ALLERGY STATUS TO OTHER ANTIBIOTIC AGENT 05/11/2018 BLESSING EPPERSONIS Ot Z88.2 ALLERGY STATUS TO SULFONAMIDES STATUS 05/11/2018 BLESSING EPPERSONIS Ot Z88.4 ALLERGY STATUS TO ANESTHETIC AGENT STATU 05/11/2018 BLESSING EPPERSONIS Ot Z88.5 ALLERGY STATUS TO NARCOTIC AGENT STATUS 05/11/2018 BLESSING EPPERSONIS Ot Z88.8 ALLERGY STATUS TO OTH DRUG/MEDS/BIOL SUB 05/11/2018 BLESSING EPPERSONIS Ot Z91.041 RADIOGRAPHIC DYE ALLERGY STATUS 05/12/2018 PRIYA ROUSE APRN Ot E03 .9 HYPOTHYROIDISM, UNSPECIFIED 05/12/2018 PRIYA ROUSE APRN Ot E11 .9 TYPE 2 DIABETES MELLITUS WITHOUT COMPLIC 05/12/2018 PRIYA ROUSE APRN Ot E78.00 PURE HYPERCHOLESTEROLEMIA, UNSPECIFIED 05/12/2018 PRIYA ROUSE APRN Ot F17.200 NICOTINE DEPENDENCE, UNSPECIFIED, UNCOMP 05/12/2018 PRIYA ROUSE APRN Ot F31 .9 BIPOLAR DISORDER, UNSPECIFIED 05/12/2018 PRIYA ROUSE APRN Ot F41 .9 ANXIETY DISORDER, UNSPECIFIED 05/12/2018 PRIYA ROUSE APRN Ot G43.909 MIGRAINE, UNSP, NOT INTRACTABLE, WITHOUT 05/12/2018 PRIYA ROUSE APRN Ot I10 ESSENTIAL (PRIMARY) HYPERTENSION 05/12/2018 PRIYA ROUSE APRN Ot K21 .9 GASTRO-ESOPHAGEAL REFLUX DISEASE WITHOUT 05/12/2018 PRIYA ROUSE APRN Ot R07.89 OTHER CHEST PAIN 05/12/2018 PRIYA ROUSE APRN Ot Z86.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 05/12/2018 PRIYA ROUSE APRN Ot Z88 .0 ALLERGY STATUS TO PENICILLIN 05/12/2018 PRIYA ROUSE APRN Ot Z88 .1 ALLERGY STATUS TO OTHER ANTIBIOTIC AGENT 05/12/2018 PRIYA ROUSE APRN Ot Z88 .2 ALLERGY STATUS TO SULFONAMIDES STATUS 05/12/2018 PRIYA ROUSE APRN Ot Z88 .4 ALLERGY STATUS TO ANESTHETIC AGENT STATU 05/12/2018 PRIYA ROUSE APRN Ot Z88 .5 ALLERGY STATUS TO NARCOTIC AGENT STATUS 05/12/2018 PRIYA ROUSE APRN Ot Z88 .6 ALLERGY STATUS TO ANALGESIC AGENT STATUS 05/12/2018 PRIYA ROUSE APRN Ot Z88 .8 ALLERGY STATUS TO OTH DRUG/MEDS/BIOL SUB 05/12/2018 PRIYA ROUSE APRN Ot Z91.041 RADIOGRAPHIC DYE ALLERGY STATUS 05/13/2018 PRIYA ROUSE APRN Ot E03 .9 HYPOTHYROIDISM, UNSPECIFIED 05/13/2018 PRIYA ROUSE APRN Ot E11 .9 TYPE 2 DIABETES MELLITUS WITHOUT COMPLIC 05/13/2018 PRIYA ROUSE APRN Ot E78.00 PURE HYPERCHOLESTEROLEMIA, UNSPECIFIED 05/13/2018 PRIYA ROUSE APRN Ot G43.909 MIGRAINE, UNSP, NOT INTRACTABLE, WITHOUT 05/13/2018 PRIYA ROUSE APRN Ot I10 ESSENTIAL (PRIMARY) HYPERTENSION 05/13/2018 PRIYA ROUSE APRN Ot K21 .9 GASTRO-ESOPHAGEAL REFLUX DISEASE WITHOUT 05/13/2018 PRIYA ROUSE [...] OBJECT 05/13/2018 PRIYA ROUSE APRN Ot Z79.01 LINE AND FRAME POLER (CURRENT) USE OF ANTICOAGULANT 05/13/2018 PRIYA ROUSE APRN Ot Z86.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 05/13/2018 PRIYA ROUSE APRN Ot Z88 .0 ALLERGY STATUS TO PENICILLIN 05/13/2018 PRIYA ROUSE APRN Ot Z88 .1 ALLERGY STATUS TO OTHER ANTIBIOTIC AGENT 05/13/2018 PRIYA ROUSE APRN Ot Z88 .2 ALLERGY STATUS TO SULFONAMIDES STATUS 05/13/2018 PRIYA ROUSE APRN Ot Z88 .4 ALLERGY STATUS TO ANESTHETIC AGENT STATU 05/13/2018 PRIYA ROUSE APRN Ot Z88 .5 ALLERGY STATUS TO NARCOTIC AGENT STATUS 05/13/2018 PRIYA ROUSE APRN Ot Z88 .6 ALLERGY STATUS TO ANALGESIC AGENT STATUS 05/13/2018 PRIYA ROUSE APRN Ot Z88 .8 ALLERGY STATUS TO OTH DRUG/MEDS/BIOL SUB 05/13/2018 TAM EPPERSON Ot E03.9 HYPOTHYROIDISM, UNSPECIFIED 05/13/2018 TAM EPPERSON Ot E11.9 TYPE 2 DIABETES MELLITUS WITHOUT COMPLIC 05/13/2018 TAM EPPERSON Ot E78.00 PURE HYPERCHOLESTEROLEMIA, UNSPECIFIED 05/13/2018 TAM EPPERSON Ot F32.9 MAJOR DEPRESSIVE DISORDER, SINGLE EPISOD 05/13/2018 BERNOT, TAM Ot F41.9 ANXIETY DISORDER, UNSPECIFIED 05/13/2018 BLESSING EPPERSONIS Ot G43.909 MIGRAINE, UNSP, NOT INTRACTABLE, WITHOUT 05/13/2018 BLESSING EPPERSONIS Ot I10 ESSENTIAL (PRIMARY) HYPERTENSION 05/13/2018 BLESSING EPPERSONIS Ot K21.9 GASTRO-ESOPHAGEAL REFLUX DISEASE WITHOUT 05/13/2018 BLESSING EPPERSONIS Ot M54.2 CERVICALGIA 05/13/2018 TAM EPPERSON Ot S13.4XXA SPRAIN OF LIGAMENTS OF CERVICAL SPINE, I 05/13/2018 BLESSING EPPERSONIS Ot W19.XXXA UNSPECIFIED FALL, INITIAL ENCOUNTER 05/13/2018 TAM EPPERSON Ot W22.09XA STRIKING AGAINST OTHER STATIONARY OBJECT 05/13/2018 TAM EPPERSON Ot Z79.01 LINE AND FRAME POLER (CURRENT) USE OF ANTICOAGULANT 05/13/2018 BLESSING EPPERSONIS Ot Z86.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 05/13/2018 TAM EPPERSON Ot Z88.0 ALLERGY STATUS TO PENICILLIN 05/13/2018 BLESSING EPPERSONIS Ot Z88.1 ALLERGY STATUS TO OTHER ANTIBIOTIC AGENT 05/13/2018 BLESSING EPPERSONIS Ot Z88.2 ALLERGY STATUS TO SULFONAMIDES STATUS 05/13/2018 BLESSING EPPERSONIS Ot Z88.4 ALLERGY STATUS TO ANESTHETIC AGENT STATU 05/13/2018 TAM EPPERSON Ot Z88.5 ALLERGY STATUS TO NARCOTIC AGENT STATUS 05/13/2018 BLESSING EPPERSONIS Ot Z88.8 ALLERGY STATUS TO OTH DRUG/MEDS/BIOL SUB 05/13/2018 TAM EPPERSON Ot Z91.041 RADIOGRAPHIC DYE ALLERGY STATUS 05/14/2018 PRIYA ROUSE APRN Ot E03 .9 HYPOTHYROIDISM, UNSPECIFIED 05/14/2018 PRIYA ROUSE DERMATOLOGY PHYSICIAN Ot E11 .9 TYPE 2 DIABETES MELLITUS WITHOUT COMPLIC 05/14/2018 PRIYA ROUSE APRN Ot E78.00 PURE HYPERCHOLESTEROLEMIA, UNSPECIFIED 05/14/2018 PRIYA ROUSE APRN Ot F17.200 NICOTINE DEPENDENCE, UNSPECIFIED, UNCOMP 05/14/2018 PRIYA ROUSE APRN Ot F31 .9 BIPOLAR DISORDER, UNSPECIFIED 05/14/2018 PRIYA ROUSE APRN Ot F41 .9 ANXIETY DISORDER, UNSPECIFIED 05/14/2018 PRIYA ROUSE APRN Ot G43.909 MIGRAINE, UNSP, NOT INTRACTABLE, WITHOUT 05/14/2018 PRIYA ROUSE APRN Ot I10 ESSENTIAL (PRIMARY) HYPERTENSION 05/14/2018 PRIYA ROUSE APRN Ot K21 .9 GASTRO-ESOPHAGEAL REFLUX DISEASE WITHOUT 05/14/2018 PRIYA ROUSE APRN Ot R07.89 OTHER CHEST PAIN 05/14/2018 PRIYA ROUSE APRN Ot Z86.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 05/14/2018 PRIYA ROUSE APRN Ot Z88 .0 ALLERGY STATUS TO PENICILLIN 05/14/2018 PRIYA ROUSE APRN Ot Z88 .1 ALLERGY STATUS TO OTHER ANTIBIOTIC AGENT 05/14/2018 PRIYA ROUSE APRN Ot Z88 .2 ALLERGY STATUS TO SULFONAMIDES STATUS 05/14/2018 PRIYA ROUSE APRN Ot Z88 .4 ALLERGY STATUS TO ANESTHETIC AGENT STATU 05/14/2018 PRIYA ROUSE APRN Ot Z88 .5 ALLERGY STATUS TO NARCOTIC AGENT STATUS 05/14/2018 PRIYA ROUSE APRN Ot Z88 .6 ALLERGY STATUS TO ANALGESIC AGENT STATUS 05/14/2018 PRIYA ROUSE APRN Ot Z88 .8 ALLERGY STATUS TO OTH DRUG/MEDS/BIOL SUB 05/14/2018 PRIYA ROUSE APRN Ot Z91.041 RADIOGRAPHIC DYE ALLERGY STATUS 05/18/2018 PRIYA ROUSE APRN Ot E03 .9 HYPOTHYROIDISM, UNSPECIFIED 05/18/2018 PRIYA ROUSE APRN Ot E11 .9 TYPE 2 DIABETES MELLITUS WITHOUT COMPLIC 05/18/2018 PRIYA ROUSE APRN Ot E78.00 PURE HYPERCHOLESTEROLEMIA, UNSPECIFIED 05/18/2018 PRIYA ROUSE APRN Ot F17.200 NICOTINE DEPENDENCE, UNSPECIFIED, UNCOMP 05/18/2018 PRIYA ROUSE APRN Ot F31 .9 BIPOLAR DISORDER, UNSPECIFIED 05/18/2018 PRIYA ROUSE APRN Ot F41 .9 ANXIETY DISORDER, UNSPECIFIED 05/18/2018 PRIYA ROUSE APRN Ot G43.909 MIGRAINE, UNSP, NOT INTRACTABLE, WITHOUT 05/18/2018 PRIYA ROUSE APRN Ot I10 ESSENTIAL (PRIMARY) HYPERTENSION 05/18/2018 PRIYA ROUSE APRN Ot K21 .9 GASTRO-ESOPHAGEAL REFLUX DISEASE WITHOUT 05/18/2018 PRIYA ROUSE APRN Ot R07.89 OTHER CHEST PAIN 05/18/2018 PRIYA ROUSE APRN Ot Z86.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 05/18/2018 PRIYA ROUSE APRN Ot Z88 .0 ALLERGY STATUS TO PENICILLIN 05/18/2018 PRIYA ROUSE APRN Ot Z88 .1 ALLERGY STATUS TO OTHER ANTIBIOTIC AGENT 05/18/2018 PRIYA ROUSE APRN Ot Z88 .2 ALLERGY STATUS TO SULFONAMIDES STATUS 05/18/2018 PRIYA ROUSE APRN Ot Z88 .4 ALLERGY STATUS TO ANESTHETIC AGENT STATU 05/18/2018 PRIYA ROUSE APRN Ot Z88 .5 ALLERGY STATUS TO NARCOTIC AGENT STATUS 05/18/2018 PRIYA ROUSE APRN Ot Z88 .6 ALLERGY STATUS TO ANALGESIC AGENT STATUS 05/18/2018 PRIYA ROUSE APRN Ot Z88 .8 ALLERGY STATUS TO OTH DRUG/MEDS/BIOL SUB 05/18/2018 PRIYA ROUSE APRN Ot Z91.041 RADIOGRAPHIC DYE ALLERGY STATUS 05/23/2018 PRIYA ROUSE APRN Ot E03 .9 HYPOTHYROIDISM, UNSPECIFIED 05/23/2018 PRIYA ROUSE APRN Ot E11 .9 TYPE 2 DIABETES MELLITUS WITHOUT COMPLIC 05/23/2018 PRIYA ROUSE APRN Ot E78.00 PURE HYPERCHOLESTEROLEMIA, UNSPECIFIED 05/23/2018 PRIYA ROUSE APRN Ot F17.210 NICOTINE DEPENDENCE, CIGARETTES, UNCOMPL 05/23/2018 PRIYA ROUSE APRN Ot F31 .9 BIPOLAR DISORDER, UNSPECIFIED 05/23/2018 PRIYA ROUSE APRN Ot F41 .9 ANXIETY DISORDER, UNSPECIFIED 05/23/2018 PRIYA ROUSE APRN Ot G43.909 MIGRAINE, UNSP, NOT INTRACTABLE, WITHOUT 05/23/2018 PRIYA ROUSE APRN Ot I10 ESSENTIAL (PRIMARY) HYPERTENSION 05/23/2018 PRIYA ROUSE APRN Ot K21 .9 GASTRO-ESOPHAGEAL REFLUX DISEASE WITHOUT 05/23/2018 PRIYA ROUSE APRN Ot R07.89 OTHER CHEST PAIN 05/23/2018 PRIYA ROUSE APRN Ot Z86.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 05/23/2018 PRIYA ROUSE APRN Ot Z87.09 PERSONAL HISTORY OF OTHER DISEASES OF TH 05/23/2018 PRIYA ROUSE APRN Ot Z88 .0 ALLERGY STATUS TO PENICILLIN 05/23/2018 PRIYA ROUSE APRN Ot Z88 .1 ALLERGY STATUS TO OTHER ANTIBIOTIC AGENT 05/23/2018 PRIYA ROUSE APRN Ot Z88 .2 ALLERGY STATUS TO SULFONAMIDES STATUS 05/23/2018 PRIYA ROUSE APRN Ot Z88 .4 ALLERGY STATUS TO ANESTHETIC AGENT STATU 05/23/2018 PRIYA ROUSE APRN Ot Z88 .5 ALLERGY STATUS TO NARCOTIC AGENT STATUS 05/23/2018 PRIYA ROUSE APRN Ot Z88 .6 ALLERGY STATUS TO ANALGESIC AGENT STATUS 05/23/2018 PRIYA ROUSE APRN Ot Z88 .8 ALLERGY STATUS TO OTH DRUG/MEDS/BIOL SUB 05/23/2018 PRIYA ROUSE APRN Ot Z91.041 RADIOGRAPHIC DYE ALLERGY STATUS 05/26/2018 PRIYA ROUSE APRN Ot E03 .9 HYPOTHYROIDISM, UNSPECIFIED 05/26/2018 PRIYA ROUSE APRN Ot E11 .9 TYPE 2 DIABETES MELLITUS WITHOUT COMPLIC 05/26/2018 PRIYA ROUSE APRN Ot E78.00 PURE HYPERCHOLESTEROLEMIA, UNSPECIFIED 05/26/2018 PRIYA ROUSE APRN Ot F17.210 NICOTINE DEPENDENCE, CIGARETTES, UNCOMPL 05/26/2018 PRIYA ROUSE APRN Ot F31 .9 BIPOLAR DISORDER, UNSPECIFIED 05/26/2018 PRIYA ROUSE APRN Ot F41 .9 ANXIETY DISORDER, UNSPECIFIED 05/26/2018 PRIYA ROUSE APRN Ot G43.909 MIGRAINE, UNSP, NOT INTRACTABLE, WITHOUT 05/26/2018 PRIYA ROUSE APRN Ot I10 ESSENTIAL (PRIMARY) HYPERTENSION 05/26/2018 PRIYA ROUSE APRN Ot K21 .9 GASTRO-ESOPHAGEAL REFLUX DISEASE WITHOUT 05/26/2018 PRIYA ROUSE APRN Ot R07.89 OTHER CHEST PAIN 05/26/2018 PRIYA ROUSE APRN Ot Z86.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 05/26/2018 PRIYA ROUSE APRN Ot Z87.09 PERSONAL HISTORY OF OTHER DISEASES OF TH 05/26/2018 PRIYA ROUSE APRN Ot Z88 .0 ALLERGY STATUS TO PENICILLIN 05/26/2018 PRIYA ROUSE APRN Ot Z88 .1 ALLERGY STATUS TO OTHER ANTIBIOTIC AGENT 05/26/2018 PRIYA ROUSE APRN Ot Z88 .2 ALLERGY STATUS TO SULFONAMIDES STATUS 05/26/2018 PRIYA ROUSE APRN Ot Z88 .4 ALLERGY STATUS TO ANESTHETIC AGENT STATU 05/26/2018 PRIYA ROUSE APRN Ot Z88 .5 ALLERGY STATUS TO NARCOTIC AGENT STATUS 05/26/2018 PRIYA ROUSE APRN Ot Z88 .6 ALLERGY STATUS TO ANALGESIC AGENT STATUS 05/26/2018 PRIYA ROUSE APRN Ot Z88 .8 ALLERGY STATUS TO OTH DRUG/MEDS/BIOL SUB 05/26/2018 PRIYA ROUSE APRN Ot Z91.041 RADIOGRAPHIC DYE ALLERGY STATUS 05/30/2018 PRIYA ROUSE APRN Ot E03 .9 HYPOTHYROIDISM, UNSPECIFIED 05/30/2018 PRIYA ROUSE APRN Ot E11 .9 TYPE 2 DIABETES MELLITUS WITHOUT COMPLIC 05/30/2018 PRIYA ROUSE APRN Ot E78.00 PURE HYPERCHOLESTEROLEMIA, UNSPECIFIED 05/30/2018 PRIYA ROUSE APRN Ot F32 .9 MAJOR DEPRESSIVE DISORDER, SINGLE EPISOD 05/30/2018 PRIYA ROUSE APRN Ot F41 .9 ANXIETY DISORDER, UNSPECIFIED 05/30/2018 PRIYA ROUSE APRN Ot G43.909 MIGRAINE, UNSP, NOT INTRACTABLE, WITHOUT 05/30/2018 PRIYA ROUSE APRN Ot I10 ESSENTIAL (PRIMARY) HYPERTENSION 05/30/2018 PRIYA ROUSE APRN Ot M54 .5 LOW BACK PAIN 05/30/2018 PRIYA ROUSE APRN [...] OF TH 05/30/2018 PRIYA ROUSE APRN Ot Z88 .0 ALLERGY STATUS TO PENICILLIN 05/30/2018 PRIYA ROUSE APRN Ot Z88 .1 ALLERGY STATUS TO OTHER ANTIBIOTIC AGENT 05/30/2018 PRIYA ROUSE APRN Ot Z88 .2 ALLERGY STATUS TO SULFONAMIDES STATUS 05/30/2018 PRIYA ROUSE APRN Ot Z88 .4 ALLERGY STATUS TO ANESTHETIC AGENT STATU 05/30/2018 PRIYA ROUSE APRN Ot Z88 .5 ALLERGY STATUS TO NARCOTIC AGENT STATUS 05/30/2018 PRIYA ROUSE APRN Ot Z88 .6 ALLERGY STATUS TO ANALGESIC AGENT STATUS 05/30/2018 PRIYA ROUSE APRN Ot Z88 .8 ALLERGY STATUS TO OTH DRUG/MEDS/BIOL SUB 05/30/2018 PRIYA ROUSE APRN Ot Z90.710 ACQUIRED ABSENCE OF BOTH CERVIX AND UTER 05/30/2018 PRIYA ROUSE APRN Ot Z91.041 RADIOGRAPHIC DYE ALLERGY STATUS 05/30/2018 PRIYA ROUSE APRN Ot Z98.51 TUBAL LIGATION STATUS 06/02/2018 PRIYA ROUSE APRN Ot E03 .9 HYPOTHYROIDISM, UNSPECIFIED 06/02/2018 PRIYA ROUSE APRN Ot E11 .9 TYPE 2 DIABETES MELLITUS WITHOUT COMPLIC 06/02/2018 PRIYA ROUSE APRN Ot E78.00 PURE HYPERCHOLESTEROLEMIA, UNSPECIFIED 06/02/2018 PRIYA ROUSE APRN Ot F32 .9 MAJOR DEPRESSIVE DISORDER, SINGLE EPISOD 06/02/2018 PRIYA ROUSE APRN Ot F41 .9 ANXIETY DISORDER, UNSPECIFIED 06/02/2018 PRIYA ROUSE APRN Ot G43.909 MIGRAINE, UNSP, NOT INTRACTABLE, WITHOUT 06/02/2018 PRIYA ROUSE APRN Ot I10 ESSENTIAL (PRIMARY) HYPERTENSION 06/02/2018 PRIYA ROUSE APRN Ot M54 .5 LOW BACK PAIN 06/02/2018 PRIYA ROUSE APRN [...] OF TH 06/02/2018 PRIYA ROUSE APRN Ot Z88 .0 ALLERGY STATUS TO PENICILLIN 06/02/2018 PRIYA ROUSE APRN Ot Z88 .1 ALLERGY STATUS TO OTHER ANTIBIOTIC AGENT 06/02/2018 PRIYA ROUSE APRN Ot Z88 .2 ALLERGY STATUS TO SULFONAMIDES STATUS 06/02/2018 PRIYA ROUSE APRN Ot Z88 .4 ALLERGY STATUS TO ANESTHETIC AGENT STATU 06/02/2018 PRIYA ROUSE APRN Ot Z88 .5 ALLERGY STATUS TO NARCOTIC AGENT STATUS 06/02/2018 PRIYA ROUSE APRN Ot Z88 .6 ALLERGY STATUS TO ANALGESIC AGENT STATUS 06/02/2018 PRIYA ROUSE APRN Ot Z88 .8 ALLERGY STATUS TO OTH DRUG/MEDS/BIOL SUB 06/02/2018 PRIYA ROUSE APRN Ot Z90.710 ACQUIRED ABSENCE OF BOTH CERVIX AND UTER 06/02/2018 PRIYA ROUSE APRN Ot Z91.041 RADIOGRAPHIC DYE ALLERGY STATUS 06/02/2018 PRIYA ROUSE APRN Ot Z98.51 TUBAL LIGATION STATUS 06/08/2018 TAM EPPERSON Ot E03.9 HYPOTHYROIDISM, UNSPECIFIED 06/08/2018 BERNBLESSING SALAZARIS Ot E11.9 TYPE 2 DIABETES MELLITUS WITHOUT COMPLIC 06/08/2018 BERNMARIE TAM Ot E78.00 PURE HYPERCHOLESTEROLEMIA, UNSPECIFIED 06/08/2018 BERNBLESSING SALAZARIS Ot F31.9 BIPOLAR DISORDER, UNSPECIFIED 06/08/2018 BERNOT, TAM Ot F41.9 ANXIETY DISORDER, UNSPECIFIED 06/08/2018 TAM EPPERSON Ot G43.909 MIGRAINE, UNSP, NOT INTRACTABLE, WITHOUT 06/08/2018 TAM EPPERSON Ot I10 ESSENTIAL (PRIMARY) HYPERTENSION 06/08/2018 TAM EPPERSON Ot K21.9 GASTRO-ESOPHAGEAL REFLUX DISEASE WITHOUT 06/08/2018 TAM EPPERSON Ot R40.2142 COMA SCALE, EYES OPEN, SPONTANEOUS, [...] Ot Z88.0 ALLERGY STATUS TO PENICILLIN 06/08/2018 TAM EPPERSON Ot Z88.1 ALLERGY STATUS TO [...] ALLERGY STATUS TO OTH DRUG/MEDS/BIOL SUB 06/08/2018 TAM EPPERSON Ot Z90.710 ACQUIRED ABSENCE OF BOTH CERVIX AND UTER 06/08/2018 TAM EPPERSON Ot Z91.041 RADIOGRAPHIC DYE ALLERGY STATUS 06/08/2018 TAM EPPERSON Ot Z98.51 TUBAL LIGATION STATUS 06/10/2018 TAM EPPERSON Ot E03.9 HYPOTHYROIDISM, UNSPECIFIED 06/10/2018 BLESSING EPPERSONIS Ot E11.9 TYPE 2 DIABETES MELLITUS WITHOUT COMPLIC 06/10/2018 BLESSING EPPERSONIS Ot E78.00 PURE HYPERCHOLESTEROLEMIA, UNSPECIFIED 06/10/2018 BLESSING EPPERSONIS Ot F31.9 BIPOLAR DISORDER, UNSPECIFIED 06/10/2018 BLESSING EPPERSONIS Ot F41.9 ANXIETY DISORDER, UNSPECIFIED 06/10/2018 BLESSING EPPERSONIS Ot G43.909 MIGRAINE, UNSP, NOT INTRACTABLE, WITHOUT 06/10/2018 BLESSING EPPERSONIS Ot I10 ESSENTIAL (PRIMARY) HYPERTENSION 06/10/2018 BLESSING EPPERSONIS Ot K21.9 GASTRO-ESOPHAGEAL REFLUX DISEASE WITHOUT 06/10/2018 BLESSING EPPERSONIS Ot R40.2142 COMA SCALE, EYES OPEN, SPONTANEOUS, EMR 06/10/2018 TAM EPPERSON Ot R40.2252 COMA SCALE, BEST VERBAL RESPONSE, ORIENT 06/10/2018 TAM EPPERSON Ot R40.2362 COMA SCALE, BEST [...] AND EXPSR TO ENVIRON TOBACCO SMO 06/10/2018 BLESSING EPPERSONIS Ot Z86.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 06/10/2018 BLESSING EPPERSONIS Ot Z88.0 ALLERGY STATUS TO PENICILLIN 06/10/2018 [...] ALLERGY STATUS TO OTH DRUG/MEDS/BIOL SUB 06/10/2018 CORINETAM SALAZAR Ot Z90.710 ACQUIRED ABSENCE OF BOTH CERVIX AND UTER 06/10/2018 TAM EPPERSON Ot Z91.041 RADIOGRAPHIC DYE ALLERGY STATUS 06/10/2018 BLESSING EPPERSONIS Ot Z98.51 TUBAL LIGATION STATUS 06/18/2018 PIERRE DE LA VEGA MD Ot E11. 9 TYPE 2 DIABETES MELLITUS WITHOUT COMPLIC 06/18/2018 PIERRE DE LA VEGA MD Ot E78. 2 MIXED HYPERLIPIDEMIA 06/18/2018 PIERRE DE LA VEGA MD Ot I10 ESSENTIAL (PRIMARY) HYPERTENSION 06/18/2018 PIERRE DE LA VEGA MD Ot Z72. 0 TOBACCO USE 06/20/2018 PIERRE DE LA VEGA MD Ot E03. 9 HYPOTHYROIDISM, UNSPECIFIED 06/20/2018 PIERRE DE LA VEGA MD Ot E11. 9 TYPE 2 DIABETES MELLITUS WITHOUT COMPLIC 06/20/2018 PIERRE DE LA VEGA MD Ot E66. 01 MORBID (SEVERE) OBESITY DUE TO EXCESS CA 06/20/2018 PIERRE DE LA VEGA MD Ot E78. 2 MIXED HYPERLIPIDEMIA 06/20/2018 PIERRE DE LA VEGA MD Ot E78. 5 HYPERLIPIDEMIA, UNSPECIFIED 06/20/2018 PIERRE DE LA VEGA MD Ot F17.210 NICOTINE DEPENDENCE, CIGARETTES, UNCOMPL 06/20/2018 PIERRE DE LA VEGA MD Ot F31. 9 BIPOLAR DISORDER, UNSPECIFIED 06/20/2018 PIERRE DE LA VEGA MD Ot I10 ESSENTIAL (PRIMARY) HYPERTENSION 06/20/2018 PIERRE DE LA VEGA MD Ot I25. 10 ATHSCL HEART DISEASE OF [place] CORONARY 06/20/2018 PIERRE DE LA VEGA MD Ot J44. 9 CHRONIC OBSTRUCTIVE PULMONARY DISEASE, U 06/20/2018 PIERRE DE LA VEGA MD Ot K21. 9 GASTRO-ESOPHAGEAL REFLUX DISEASE WITHOUT 06/20/2018 PIERRE DE LA VEGA MD Ot R07. 89 OTHER CHEST PAIN 06/20/2018 PIERRE DE LA VEGA MD Ot R60. 9 EDEMA, UNSPECIFIED 06/20/2018 PIERRE DE LA VEGA MD Ot Z68. 43 BODY MASS INDEX (BMI) 50-59.9, ADULT 06/20/2018 PIERRE DE LA VEGA MD Ot Z86.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 06/21/2018 PRIYA ROUSE APRN Ot E03 .9 HYPOTHYROIDISM, UNSPECIFIED 06/21/2018 PRIYA ROUSE APRN Ot E11 .9 TYPE 2 DIABETES MELLITUS WITHOUT COMPLIC 06/21/2018 PRIYA ROUSE APRN Ot E78.00 PURE HYPERCHOLESTEROLEMIA, UNSPECIFIED 06/21/2018 PRIYA ROUSE APRN Ot F31 .9 BIPOLAR DISORDER, UNSPECIFIED 06/21/2018 PRIYA ROUSE APRN Ot F41 .9 ANXIETY DISORDER, UNSPECIFIED 06/21/2018 PRIYA ROUSE APRN Ot G43.909 MIGRAINE, UNSP, NOT INTRACTABLE, WITHOUT 06/21/2018 PRIYA ROUSE APRN Ot I10 ESSENTIAL (PRIMARY) HYPERTENSION 06/21/2018 PRIYA ROUSE APRN Ot K21 .9 GASTRO-ESOPHAGEAL REFLUX DISEASE WITHOUT 06/21/2018 PRIYA ROUSE APRN Ot R07 .9 CHEST PAIN, UNSPECIFIED 06/21/2018 PRIYA ROUSE APRN Ot Z77.22 CNTCT W AND EXPSR TO ENVIRON TOBACCO SMO 06/21/2018 PRIYA ROUSE APRN Ot Z79.01 FDC (CURRENT) USE OF ANTICOAGULANT 06/21/2018 PRIYA ROUSE APRN Ot Z86.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 06/21/2018 PRIYA ROUSE APRN Ot Z87.09 PERSONAL HISTORY OF OTHER DISEASES OF TH 06/21/2018 PRIYA ROUSE APRN Ot Z88 .0 ALLERGY STATUS TO PENICILLIN 06/21/2018 PRIYA ROUSE APRN Ot Z88 .1 ALLERGY STATUS TO OTHER ANTIBIOTIC AGENT 06/21/2018 PRIYA ROUSE APRN Ot Z88 .2 ALLERGY STATUS TO SULFONAMIDES STATUS 06/21/2018 PRIYA ROUSE APRN Ot Z88 .5 ALLERGY STATUS TO NARCOTIC AGENT STATUS 06/21/2018 PRIYA ROUSE APRN Ot Z88 .6 ALLERGY STATUS TO ANALGESIC AGENT STATUS 06/21/2018 PRIYA ROUSE APRN Ot Z88 .8 ALLERGY STATUS TO OTH DRUG/MEDS/BIOL SUB 06/21/2018 PRIYA ROUSE APRN Ot Z90.710 ACQUIRED ABSENCE OF BOTH CERVIX AND UTER 06/21/2018 PRIYA ROUSE APRN Ot Z91.041 RADIOGRAPHIC DYE ALLERGY STATUS 06/21/2018 PRIYA ROUSE APRN Ot Z98.51 TUBAL LIGATION STATUS 06/21/2018 PRIYA ROUSE APRN Ot Z98.890 OTHER SPECIFIED POSTPROCEDURAL STATES 06/24/2018 PRIYA ROUSE APRN Ot E03 .9 HYPOTHYROIDISM, UNSPECIFIED 06/24/2018 PRIYA ROUSE DERMATOLOGY PHYSICIAN Ot E11 .9 TYPE 2 DIABETES MELLITUS WITHOUT COMPLIC 06/24/2018 PRIYA ROUSE APRN Ot E78.00 PURE HYPERCHOLESTEROLEMIA, UNSPECIFIED 06/24/2018 PRIYA ROUSE APRN Ot F31 .9 BIPOLAR DISORDER, UNSPECIFIED 06/24/2018 PRIYA ROUSE APRN Ot F41 .9 ANXIETY DISORDER, UNSPECIFIED 06/24/2018 PRIYA ROUSE APRN Ot G43.909 MIGRAINE, UNSP, NOT INTRACTABLE, WITHOUT 06/24/2018 PRIYA ROUSE APRN Ot I10 ESSENTIAL (PRIMARY) HYPERTENSION 06/24/2018 PRIYA ROUSE APRN Ot K21 .9 GASTRO-ESOPHAGEAL REFLUX DISEASE WITHOUT 06/24/2018 PRIYA ROUSE DERMATOLOGY PHYSICIAN Ot R07 .9 CHEST PAIN, UNSPECIFIED 06/24/2018 PRIYA ROUSE APRN Ot Z77.22 CNTCT W AND EXPSR TO ENVIRON TOBACCO SMO 06/24/2018 PRIYA ROUSE APRN Ot Z79.01 LINE AND FRAME POLER (CURRENT) USE OF ANTICOAGULANT 06/24/2018 PRIYA ROUSE APRN Ot Z86.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 06/24/2018 PRIYA ROUSE APRN Ot Z87.09 PERSONAL HISTORY OF OTHER DISEASES OF TH 06/24/2018 PRIYA ROUSE APRN Ot Z88 .0 ALLERGY STATUS TO PENICILLIN 06/24/2018 PRIYA ROUSE APRN Ot Z88 .1 ALLERGY STATUS TO OTHER ANTIBIOTIC AGENT 06/24/2018 PRIYA ROUSE APRN Ot Z88 .2 ALLERGY STATUS TO SULFONAMIDES STATUS 06/24/2018 PRIYA ROUSE APRN Ot Z88 .5 ALLERGY STATUS TO NARCOTIC AGENT STATUS 06/24/2018 PRIYA ROUSE APRN Ot Z88 .6 ALLERGY STATUS TO ANALGESIC AGENT STATUS 06/24/2018 PRIYA ROUSE APRN Ot Z88 .8 ALLERGY STATUS TO OTH DRUG/MEDS/BIOL SUB 06/24/2018 PRIYA ROUSE APRN Ot Z90.710 ACQUIRED ABSENCE OF BOTH CERVIX AND UTER 06/24/2018 PRIYA ROUSE DERMATOLOGY PHYSICIAN Ot Z91.041 RADIOGRAPHIC DYE ALLERGY STATUS 06/24/2018 [...] NOT INTRACTABLE, WITHOUT 06/26/2018 PERFECTO MARVIN Ot I 10 ESSENTIAL (PRIMARY) HYPERTENSION 06/26/2018 PERFECTO MARVIN Ot K21.9 GASTRO-ESOPHAGEAL REFLUX DISEASE WITHOUT 06/26/2018 PERFECTO MARVIN Ot M54.5 LOW BACK PAIN 06/26/2018 PERFECTO MARVIN Ot S09.90XA UNSPECIFIED INJURY OF HEAD, INITIAL ENCO 06/26/2018 PERFECTO MARVIN Ot W07.XXXA FALL FROM CHAIR, INITIAL ENCOUNTER 06/26/2018 PERFECTO MARVIN Ot Z79.01 LINE AND FRAME POLER (CURRENT) USE OF ANTICOAGULANT 06/26/2018 PERFECTO MARVIN [...] LIGATION STATUS 06/29/2018 PRIYA ROUSE APRN Ot E03 .9 HYPOTHYROIDISM, UNSPECIFIED 06/29/2018 PRIYA ROUSE APRN Ot E11 .9 TYPE 2 DIABETES MELLITUS WITHOUT COMPLIC 06/29/2018 PRIYA ROUSE APRN Ot E78.00 PURE HYPERCHOLESTEROLEMIA, UNSPECIFIED 06/29/2018 PRIYA ROUSE APRN Ot F31 .9 BIPOLAR DISORDER, UNSPECIFIED 06/29/2018 PRIYA ROUSE APRN Ot F41 .9 ANXIETY DISORDER, UNSPECIFIED 06/29/2018 PRIYA ROUSE APRN Ot G43.909 MIGRAINE, UNSP, NOT INTRACTABLE, WITHOUT 06/29/2018 PRIYA ROUSE APRN Ot I10 ESSENTIAL (PRIMARY) HYPERTENSION 06/29/2018 PRIYA ROUSE APRN Ot J42 UNSPECIFIED CHRONIC BRONCHITIS 06/29/2018 PRIYA ROUSE APRN Ot K21 .9 GASTRO-ESOPHAGEAL REFLUX DISEASE WITHOUT 06/29/2018 PRIYA ROUSE APRN Ot N39 .0 URINARY TRACT INFECTION, SITE NOT SPECIF 06/29/2018 PRIYA ROUSE APRN Ot R07.89 OTHER CHEST PAIN 06/29/2018 PRIYA ROUSE APRN Ot Z86.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 06/29/2018 PRIYA ROUSE APRN Ot Z88 .0 ALLERGY STATUS TO PENICILLIN 06/29/2018 PRIYA ROUSE APRN Ot Z88 .1 ALLERGY STATUS TO OTHER ANTIBIOTIC AGENT 06/29/2018 PRIYA ROUSE APRN Ot Z88 .2 ALLERGY STATUS TO SULFONAMIDES STATUS 06/29/2018 PRIYA ROUSE APRN Ot Z88 .5 ALLERGY STATUS TO NARCOTIC AGENT STATUS 06/29/2018 PRIYA ROUSE APRN Ot Z88 .6 ALLERGY STATUS TO ANALGESIC AGENT STATUS 06/29/2018 RPIYA ROUSE APRN Ot Z90.710 ACQUIRED ABSENCE OF BOTH CERVIX AND UTER 06/29/2018 PRIYA ROUSE DERMATOLOGY PHYSICIAN Ot Z91.041 RADIOGRAPHIC DYE ALLERGY STATUS 06/29/2018 [...] NOT INTRACTABLE, WITHOUT 06/29/2018 PERFECTO MARVIN Ot I 10 ESSENTIAL (PRIMARY) HYPERTENSION 06/29/2018 PERFECTO MARVIN Ot K21.9 GASTRO-ESOPHAGEAL REFLUX DISEASE WITHOUT 06/29/2018 PERFECTO MARVIN Ot M54.5 LOW BACK PAIN 06/29/2018 PERFECTO MARVIN Ot S09.90XA UNSPECIFIED INJURY OF HEAD, INITIAL ENCO 06/29/2018 PERFECTO MARVIN Ot W07.XXXA FALL FROM CHAIR, INITIAL ENCOUNTER 06/29/2018 PERFECTO MARVIN Ot Z79.01 LINE AND FRAME POLER (CURRENT) USE OF ANTICOAGULANT 06/29/2018 PERFECTO MARVIN Ot Z86.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 06/29/2018 PERFECTO MARVIN Ot Z88.0 ALLERGY STATUS TO PENICILLIN 06/29/2018 PERFECTO MARVIN Ot Z88.1 ALLERGY STATUS TO OTHER ANTIBIOTIC AGENT 06/29/2018 PERFECTO MARVIN Ot Z88.2 ALLERGY STATUS TO SULFONAMIDES STATUS 06/29/2018 PERFECTO MARVIN Ot Z88.4 ALLERGY STATUS TO ANESTHETIC AGENT STATU 06/29/2018 JERZY PA, PERFECTO L Ot Z88.5 ALLERGY STATUS TO NARCOTIC AGENT STATUS 06/29/2018 PERFECTO MARVIN Ot Z88.8 ALLERGY STATUS TO OTH DRUG/MEDS/BIOL SUB 06/29/2018 PERFECTO MARVIN Ot Z90.710 ACQUIRED ABSENCE OF BOTH CERVIX AND UTER 06/29/2018 PERFECTO MARVIN Ot Z91.041 RADIOGRAPHIC DYE ALLERGY STATUS 06/29/2018 PERFECTO MARVIN Ot Z98.51 TUBAL LIGATION STATUS 07/01/2018 PRIYA ROUSE APRN Ot E03 .9 HYPOTHYROIDISM, UNSPECIFIED 07/01/2018 PRIYA ROUSE APRN Ot E11 .9 TYPE 2 DIABETES MELLITUS WITHOUT COMPLIC 07/01/2018 PRIYA ROUSE APRN Ot E78.00 PURE HYPERCHOLESTEROLEMIA, UNSPECIFIED 07/01/2018 PRIYA ROUSE APRN Ot F31 .9 BIPOLAR DISORDER, UNSPECIFIED 07/01/2018 PRIYA ROUSE APRN Ot F41 .9 ANXIETY DISORDER, UNSPECIFIED 07/01/2018 PRIYA ROUSE APRN Ot G43.909 MIGRAINE, UNSP, NOT INTRACTABLE, WITHOUT 07/01/2018 PRIYA ROUSE APRN Ot I10 ESSENTIAL (PRIMARY) HYPERTENSION 07/01/2018 PRIYA ROUSE APRN Ot J42 UNSPECIFIED CHRONIC BRONCHITIS 07/01/2018 PRIYA ROUSE APRN Ot K21 .9 GASTRO-ESOPHAGEAL REFLUX DISEASE WITHOUT 07/01/2018 PRIYA ROUSE APRN Ot N39 .0 URINARY TRACT INFECTION, SITE NOT SPECIF 07/01/2018 PRIYA ROUSE APRN Ot R07.89 OTHER CHEST PAIN 07/01/2018 PRIYA ROUSE APRN Ot Z86.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 07/01/2018 PRIYA ROUSE APRN Ot Z88 .0 ALLERGY STATUS TO PENICILLIN 07/01/2018 PRIYA ROUSE APRN Ot Z88 .1 ALLERGY STATUS TO OTHER ANTIBIOTIC AGENT 07/01/2018 PRIYA ROUSE APRN Ot Z88 .2 ALLERGY STATUS TO SULFONAMIDES STATUS 07/01/2018 PRIYA ROUSE APRN Ot Z88 .5 ALLERGY STATUS TO NARCOTIC AGENT STATUS 07/01/2018 PRIYA ROUSE APRN Ot Z88 .6 ALLERGY STATUS TO ANALGESIC AGENT STATUS 07/01/2018 PRIYA ROUSE APRN Ot Z90.710 ACQUIRED ABSENCE OF BOTH CERVIX AND UTER 07/01/2018 PRIYA ROUSE DERMATOLOGY PHYSICIAN Ot Z91.041 RADIOGRAPHIC DYE ALLERGY STATUS 07/01/2018 PRIYA ROUSE DERMATOLOGY PHYSICIAN Ot Z98.51 TUBAL LIGATION STATUS 07/02/2018 PERFECTO [...] NOT INTRACTABLE, WITHOUT 07/02/2018 PERFECTO MARVIN Ot I 10 ESSENTIAL (PRIMARY) HYPERTENSION 07/02/2018 PERFECTO MARVIN Ot K21.9 GASTRO-ESOPHAGEAL REFLUX DISEASE WITHOUT 07/02/2018 PERFECTO MARVIN Ot M54.5 LOW BACK PAIN 07/02/2018 PERFECTO MARVIN Ot S09.90XA UNSPECIFIED INJURY OF HEAD, INITIAL ENCO 07/02/2018 PERFECTO MARVIN Ot W07.XXXA FALL FROM CHAIR, INITIAL ENCOUNTER 07/02/2018 PERFECTO MARVIN Ot Z79.01 FDC (CURRENT) USE OF ANTICOAGULANT 07/02/2018 PERFECTO MARVIN [...] MARVIN Ot Z98.51 TUBAL LIGATION STATUS 07/08/2018 YOLETTE BAIN, PIERRE Sanchez Ot E11. 9 TYPE 2 DIABETES MELLITUS WITHOUT COMPLIC 07/08/2018 PIERRE DE LA VEGA MD Ot E78. 2 MIXED HYPERLIPIDEMIA 07/08/2018 PIERRE DE LA VEGA MD Ot I10 ESSENTIAL (PRIMARY) HYPERTENSION 07/08/2018 PIERRE DE LA VEGA MD Ot Z72. 0 TOBACCO USE 07/10/2018 LISA DO, IAN K Ot E03.9 HYPOTHYROIDISM, UNSPECIFIED 07/10/2018 LISA DO, IAN K Ot E11.40 TYPE 2 DIABETES MELLITUS WITH DIABETIC N 07/10/2018 LISA DO, IAN K Ot E66.01 MORBID (SEVERE) OBESITY DUE TO EXCESS CA 07/10/2018 LISA DO, IAN K Ot E78.00 PURE HYPERCHOLESTEROLEMIA, UNSPECIFIED 07/10/2018 LISA DO, IAN K Ot F17.210 NICOTINE DEPENDENCE, CIGARETTES, UNCOMPL 07/10/2018 LISA DO, IAN K Ot F31.9 BIPOLAR DISORDER, UNSPECIFIED 07/10/2018 LISA DO, IAN K Ot F41.9 ANXIETY DISORDER, UNSPECIFIED 07/10/2018 LISA DO, IAN K Ot G43.909 MIGRAINE, UNSP, NOT INTRACTABLE, WITHOUT 07/10/2018 LISA DO, IAN K Ot G89.29 OTHER CHRONIC PAIN 07/10/2018 LISA DO, IAN K Ot I10 ESSENTIAL (PRIMARY) HYPERTENSION 07/10/2018 LISA DO, IAN K Ot J44.9 CHRONIC OBSTRUCTIVE PULMONARY DISEASE, U 07/10/2018 LISA DO, IAN K Ot K21.9 GASTRO-ESOPHAGEAL REFLUX DISEASE WITHOUT 07/10/2018 LISA DO, IAN K Ot M54.5 LOW BACK PAIN 07/10/2018 LISA DO, IAN K Ot R40.214 2 COMA SCALE, EYES OPEN, SPONTANEOUS, EMR 07/10/2018 LISA DO, IAN K Ot R40.225 2 COMA SCALE, BEST VERBAL RESPONSE, ORIENT 07/10/2018 IAN GONZALEZ DO Ot R40.236 2 COMA SCALE, BEST MOTOR RESPONSE, OBEYS C 07/10/2018 IAN GONZALEZ DO Ot S30.0XX A CONTUSION OF LOWER BACK AND PELVIS, INIT 07/10/2018 IAN GONZALEZ DO Ot W18.39X A OTHER FALL ON SAME LEVEL, INITIAL ENCOUN 07/10/2018 IAN GONZALEZ DO Ot Z68.43 BODY MASS INDEX (BMI) 50-59.9, ADULT 07/10/2018 IAN GONZALEZ DO Ot Z79.01 LINE AND FRAME POLER (CURRENT) USE OF ANTICOAGULANT 07/10/2018 LISA LAROSE IAN Guillaume Ot Z86.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 07/10/2018 IAN GONZALEZ DO Ot Z87.09 PERSONAL HISTORY OF OTHER DISEASES OF TH 07/10/2018 IAN GONZALEZ DO Ot Z88.0 ALLERGY STATUS TO PENICILLIN 07/10/2018 LISA IAN LAROSE Ot Z88.2 ALLERGY STATUS TO SULFONAMIDES STATUS 07/10/2018 LISA IAN LAROSE Ot Z89.421 ACQUIRED ABSENCE OF OTHER RIGHT TOE(S) 07/10/2018 IAN GONZALEZ DO Ot Z90.710 ACQUIRED ABSENCE OF BOTH CERVIX AND UTER 07/10/2018 IAN GONZALEZ DO Ot Z91.81 HISTORY OF FALLING 07/10/2018 IAN GONZALEZ DO Ot Z96.651 PRESENCE OF RIGHT ARTIFICIAL KNEE JOINT 07/10/2018 LISA LAROSE IAN Guillaume Ot Z98.1 ARTHRODESIS STATUS 07/10/2018 LISA IAN Guillaume Ot Z98.51 TUBAL LIGATION STATUS 07/14/2018 ROSI HUTCHISON DO Ot N39.0 URINARY TRACT INFECTION, SITE NOT SPECIF 07/29/2018 PIERRE DE LA VEGA MD Ot E11. 9 TYPE 2 DIABETES MELLITUS WITHOUT COMPLIC 07/29/2018 PIERRE DE LA VEGA MD Ot E78. 2 MIXED HYPERLIPIDEMIA 07/29/2018 PIERRE DE LA VEGA MD Ot I10 ESSENTIAL (PRIMARY) HYPERTENSION 07/29/2018 PIERRE DE LA VEGA MD Ot Z72. 0 TOBACCO USE 10/12/2018 TAM EPPERSON Ot E03.9 [...] Ot K21.9 GASTRO-ESOPHAGEAL REFLUX DISEASE WITHOUT 10/14/2018 ATM EPPERSON Ot M25.561 PAIN IN RIGHT KNEE [...] LIGATION STATUS 12/05/2018 ANAMARIA PACK MD Ot J32 .9 CHRONIC SINUSITIS, UNSPECIFIED 12/05/2018 ANAMARIA PACK MD, Ot Z53 .8 PROCEDURE AND TREATMENT NOT CARRIED OUT 12/05/2018 ANAMARIA PACK MD, Ot Z98.890 OTHER SPECIFIED POSTPROCEDURAL STATES 01/02/2019 JULIA GUTIÉRREZ MD, Ot Z01.81 8 ENCOUNTER FOR OTHER PREPROCEDURAL EXAMIN 01/05/2019 JULIA GUTIÉRREZ MD, Ot Z01.81 8 ENCOUNTER FOR OTHER PREPROCEDURAL EXAMIN 01/07/2019 JULIA GUTIÉRREZ MD, Ot E03.9 HYPOTHYROIDISM, UNSPECIFIED 01/07/2019 JULIA GUTIÉRREZ MD, Ot E11.9 TYPE 2 DIABETES MELLITUS WITHOUT COMPLIC 01/07/2019 JULIA GUTIÉRREZ MD Ot E66.01 MORBID (SEVERE) OBESITY DUE TO EXCESS CA 01/07/2019 JULIA GUTIÉRREZ MD, Ot E78.1 PURE HYPERGLYCERIDEMIA 01/07/2019 JULIA GUTIÉRREZ MD, Ot F31.9 BIPOLAR DISORDER, UNSPECIFIED 01/07/2019 JULIA GUTIÉRREZ MD, Ot G47.33 OBSTRUCTIVE SLEEP APNEA (ADULT) (PEDIATR 01/07/2019 JULIA GUTIÉRREZ MD, Ot I10 ESSENTIAL (PRIMARY) HYPERTENSION 01/07/2019 JULIA GUTIÉRREZ MD, Ot J44.9 CHRONIC OBSTRUCTIVE PULMONARY DISEASE, U 01/07/2019 JULIA GUTIÉRREZ MD, Ot K21.0 GASTRO-ESOPHAGEAL REFLUX DISEASE WITH ES 01/07/2019 JULIA GUTIÉRREZ MD, Ot K29.70 GASTRITIS, UNSPECIFIED, WITHOUT BLEEDING 01/07/2019 JULIA GUTIÉRREZ MD, Ot K44.9 DIAPHRAGMATIC HERNIA WITHOUT OBSTRUCTION 01/07/2019 JULIA GUTIÉRREZ MD, Ot Z12.11 ENCOUNTER FOR SCREENING FOR MALIGNANT NE 01/07/2019 JULIA GUTIÉRREZ MD, Ot Z68.43 BODY MASS INDEX (BMI) 50-59.9, ADULT 01/07/2019 JULIA GUTIÉRREZ MD, Ot Z79.01 LINE AND FRAME POLER (CURRENT) USE OF ANTICOAGULANT 01/07/2019 JULIA GUTIÉRREZ MD, Ot Z79.89 9 OTHER [facility] (CURRENT) DRUG THERAPY 01/07/2019 JULIA GUTIÉRREZ MD, Ot Z86.71 8 PERSONAL HISTORY OF OTHER VENOUS THROMBO 01/07/2019 JULIA GUTIÉRREZ MD, Ot Z96.65 1 PRESENCE OF RIGHT ARTIFICIAL KNEE JOINT 01/14/2019 [...] ADULT 01/14/2019 JULIA GUTIÉRREZ MD, Ot Z79.01 LINE AND FRAME POLER (CURRENT) USE OF ANTICOAGULANT 01/14/2019 JULIA GUTIÉRREZ MD, Ot Z79.89 9 OTHER LINE AND FRAME POLER (CURRENT) DRUG THERAPY 01/14/2019 JULIA GUTIÉRREZ MD, Ot Z86.71 8 PERSONAL HISTORY OF OTHER VENOUS THROMBO 01/14/2019 JULIA GUTIÉRREZ MD, Ot Z96.65 1 PRESENCE OF RIGHT ARTIFICIAL KNEE JOINT 02/21/2019 IAN GONZALEZ DO Ot E03.9 HYPOTHYROIDISM, UNSPECIFIED 02/21/2019 IAN GONZALEZ DO Ot E11.42 TYPE 2 DIABETES MELLITUS WITH DIABETIC P 02/21/2019 IAN GONZALEZ DO Ot E66.01 MORBID (SEVERE) OBESITY DUE TO EXCESS CA 02/21/2019 IAN GONZALEZ DO Ot E78.00 PURE HYPERCHOLESTEROLEMIA, UNSPECIFIED 02/21/2019 IAN GONZALEZ DO Ot F17.210 NICOTINE DEPENDENCE, CIGARETTES, UNCOMPL 02/21/2019 IAN GONZALEZ DO Ot F31.9 BIPOLAR DISORDER, UNSPECIFIED 02/21/2019 IAN GONZALEZ DO Ot F41.9 ANXIETY DISORDER, UNSPECIFIED 02/21/2019 IAN GONZALEZ DO, Ot G43.909 MIGRAINE, UNSP, NOT INTRACTABLE, WITHOUT 02/21/2019 IAN GONZALEZ DO Ot G47.30 SLEEP APNEA, UNSPECIFIED 02/21/2019 IAN GONZALEZ DO Ot I10 ESSENTIAL (PRIMARY) HYPERTENSION 02/21/2019 IAN GONZALEZ DO Ot I25.10 ATHSCL HEART DISEASE OF [place] CORONARY 02/21/2019 IAN GONZALEZ DO, Ot J44.9 CHRONIC OBSTRUCTIVE PULMONARY DISEASE, U 02/21/2019 IAN GONZALEZ DO, Ot K21.9 GASTRO-ESOPHAGEAL REFLUX DISEASE WITHOUT 02/21/2019 IAN GONZALEZ DO Ot S70.01X A CONTUSION OF RIGHT HIP, INITIAL ENCOUNTE 02/21/2019 IAN GONZALEZ DO Ot S70.11X A CONTUSION OF RIGHT THIGH, INITIAL ENCOUN 02/21/2019 IAN GONZALEZ DO Ot S80.01X A CONTUSION OF RIGHT KNEE, INITIAL ENCOUNT 02/21/2019 IAN GONZALEZ DO Ot S89.92X A UNSPECIFIED INJURY OF LEFT LOWER LEG, IN 02/21/2019 IAN GONZALEZ DO Ot W01.0XX A FALL SAME LEV FROM SLIP/TRIP W/O STRIKE 02/21/2019 IAN GONZALEZ DO, Ot Z86.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 02/21/2019 IAN GONZALEZ DO, Ot Z87.19 PERSONAL HISTORY OF OTHER DISEASES OF TH 02/21/2019 LISA LAROSE IAN Aundrea Ot Z88.0 ALLERGY STATUS TO PENICILLIN 02/21/2019 LISA IAN LAROSE Ot Z88.1 ALLERGY STATUS TO OTHER ANTIBIOTIC AGENT 02/21/2019 LISA IAN LAROSE Ot Z88.5 ALLERGY STATUS TO NARCOTIC AGENT STATUS 02/21/2019 LISA IAN LAROSE Ot Z88.6 ALLERGY STATUS TO ANALGESIC AGENT STATUS 02/21/2019 LISA IAN LAROSE Ot Z88.8 ALLERGY STATUS TO OTH DRUG/MEDS/BIOL SUB 02/21/2019 LISA IAN LAROSE Ot Z89.421 ACQUIRED ABSENCE OF OTHER RIGHT TOE(S) 02/21/2019 LISA IAN LAROSE Ot Z90.710 ACQUIRED ABSENCE OF BOTH CERVIX AND UTER 02/21/2019 LISA IAN LAROSE Ot Z91.041 RADIOGRAPHIC DYE ALLERGY STATUS 02/21/2019 LISA IAN LAROSE Ot Z96.651 PRESENCE OF RIGHT ARTIFICIAL KNEE JOINT 02/21/2019 LISA IAN LAROSE Ot Z98.51 TUBAL LIGATION STATUS 02/21/2019 LISA IAN LAROSE Ot Z99.81 DEPENDENCE ON SUPPLEMENTAL OXYGEN 02/24/2019 LISA IAN LAROSE Ot E03.9 HYPOTHYROIDISM, UNSPECIFIED 02/24/2019 LISA IAN LAROSE Ot E11.42 TYPE 2 DIABETES MELLITUS WITH DIABETIC P 02/24/2019 LISA IAN LAROSE Ot E66.01 MORBID (SEVERE) OBESITY DUE TO EXCESS CA 02/24/2019 LISA IAN LAROSE Ot E78.00 PURE HYPERCHOLESTEROLEMIA, UNSPECIFIED 02/24/2019 LISA IAN LAROSE Ot F17.210 NICOTINE DEPENDENCE, CIGARETTES, UNCOMPL 02/24/2019 LISA IAN LAROSE Ot F31.9 BIPOLAR DISORDER, UNSPECIFIED 02/24/2019 STAPLEHURST IAN LAROSE Ot F41.9 ANXIETY DISORDER, UNSPECIFIED 02/24/2019 LISA IAN LAROSE Ot G43.909 MIGRAINE, UNSP, NOT INTRACTABLE, WITHOUT 02/24/2019 LISA IAN LAROSE Ot G47.30 SLEEP APNEA, UNSPECIFIED 02/24/2019 LISA IAN LAROSE Ot I10 ESSENTIAL (PRIMARY) HYPERTENSION 02/24/2019 LISA IAN LAROSE Ot I25.10 ATHSCL HEART DISEASE OF [place] CORONARY 02/24/2019 IAN GONZALEZ DO, Ot J44.9 CHRONIC OBSTRUCTIVE PULMONARY DISEASE, U 02/24/2019 IAN GONZALEZ DO, Ot K21.9 GASTRO-ESOPHAGEAL REFLUX DISEASE WITHOUT 02/24/2019 IAN GONZALEZ DO Ot S70.01X A CONTUSION OF RIGHT HIP, INITIAL ENCOUNTE 02/24/2019 IAN GONZALEZ DO Ot S70.11X A CONTUSION OF RIGHT THIGH, INITIAL ENCOUN 02/24/2019 IAN GONZALEZ DO, Ot S80.01X A CONTUSION OF RIGHT KNEE, INITIAL ENCOUNT 02/24/2019 IAN GONZALEZ DO, Ot S89.92X A UNSPECIFIED INJURY OF LEFT LOWER LEG, IN 02/24/2019 IAN GONZALEZ DO, Ot W01.0XX A FALL SAME LEV FROM SLIP/TRIP W/O STRIKE 02/24/2019 IAN GONZALEZ DO, Ot Z86.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 02/24/2019 IAN GONZALEZ DO, Ot Z87.19 PERSONAL HISTORY OF OTHER DISEASES OF TH 02/24/2019 IAN GONZALEZ DO, Ot Z88.0 ALLERGY STATUS TO PENICILLIN 02/24/2019 IAN GONZALEZ DO, Ot Z88.1 ALLERGY STATUS TO OTHER ANTIBIOTIC AGENT 02/24/2019 IAN GONZALEZ DO Ot Z88.5 ALLERGY STATUS TO NARCOTIC AGENT STATUS 02/24/2019 IAN GONZALEZ DO, Ot Z88.6 ALLERGY STATUS TO ANALGESIC AGENT STATUS 02/24/2019 IAN GONZALEZ DO, Ot Z88.8 ALLERGY STATUS TO OTH DRUG/MEDS/BIOL SUB 02/24/2019 IAN GONZALEZ DO, Ot Z89.421 ACQUIRED ABSENCE OF OTHER RIGHT TOE(S) 02/24/2019 IAN GONZALEZ DO Ot Z90.710 ACQUIRED ABSENCE OF BOTH CERVIX AND UTER 02/24/2019 IAN GONZALEZ DO, Ot Z91.041 RADIOGRAPHIC DYE ALLERGY STATUS 02/24/2019 IAN GONZALEZ DO, Ot Z96.651 PRESENCE OF RIGHT ARTIFICIAL KNEE JOINT 02/24/2019 IAN GONZALEZ DO, Ot Z98.51 TUBAL LIGATION STATUS 02/24/2019 IAN GONZALEZ DO, Ot Z99.81 DEPENDENCE ON SUPPLEMENTAL OXYGEN 05/20/2019 RICHI MORGAN MD Ot E03. 9 HYPOTHYROIDISM, UNSPECIFIED 05/20/2019 RICHI MORGAN MD Ot E11. 40 TYPE 2 DIABETES MELLITUS WITH DIABETIC N 05/20/2019 RICHI MORGAN MD Ot E66. 01 MORBID (SEVERE) OBESITY DUE TO EXCESS CA 05/20/2019 RICHI MORGAN MD Ot E78. 00 PURE HYPERCHOLESTEROLEMIA, UNSPECIFIED 05/20/2019 RICHI MORGAN MD Ot F31. 9 BIPOLAR DISORDER, UNSPECIFIED 05/20/2019 RICHI MORGAN MD Ot F41. 9 ANXIETY DISORDER, UNSPECIFIED 05/20/2019 RICHI MORGAN MD Ot G43.909 MIGRAINE, UNSP, NOT INTRACTABLE, WITHOUT 05/20/2019 RICHI MORGAN MD Ot G47. 30 SLEEP APNEA, UNSPECIFIED 05/20/2019 RICHI MORGAN MD Ot I10 ESSENTIAL (PRIMARY) HYPERTENSION 05/20/2019 RICHI MORGAN MD Ot I25. 10 ATHSCL HEART DISEASE OF [place] CORONARY 05/20/2019 RICHI MORGAN MD Ot J44. 9 CHRONIC OBSTRUCTIVE PULMONARY DISEASE, U 05/20/2019 RICHI MORGAN MD Ot K21. 9 GASTRO-ESOPHAGEAL REFLUX DISEASE WITHOUT 05/20/2019 RICHI MORGAN MD Ot R07. 9 CHEST PAIN, UNSPECIFIED 05/20/2019 RICHI MORGAN MD Ot Z77. 22 CNTCT W AND EXPSR TO ENVIRON TOBACCO SMO 05/20/2019 RICHI MORGAN MD Ot Z79. 01 FDC (CURRENT) USE OF ANTICOAGULANT 05/20/2019 RICHI MORGAN MD Ot Z86.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 05/20/2019 RICHI MORGAN MD Ot Z88. 0 ALLERGY STATUS TO PENICILLIN 05/20/2019 RICHI MORGAN MD Ot Z88. 1 ALLERGY STATUS TO OTHER ANTIBIOTIC AGENT 05/20/2019 RICHI MORGAN MD Ot Z88. 2 ALLERGY STATUS TO SULFONAMIDES STATUS 05/20/2019 RICHI MORGAN MD Ot Z88. 5 ALLERGY STATUS TO NARCOTIC AGENT STATUS 05/20/2019 RICHI MORGAN MD Ot Z88. 6 ALLERGY STATUS TO ANALGESIC AGENT STATUS 05/20/2019 RICHI MORGAN MD Ot Z88. 8 ALLERGY STATUS TO OT DRUG/MEDS/BIOL SUB 05/20/2019 RICHI MORGAN MD Ot Z90.710 ACQUIRED ABSENCE OF BOTH CERVIX AND UTER 05/20/2019 RICHI MORGAN MD Ot Z95. 9 PRESENCE OF CARDIAC AND VASCULAR IMPLANT 05/20/2019 RICHI MORGAN MD Ot Z98. 51 TUBAL LIGATION STATUS 05/20/2019 RICHI MORGAN MD Ot Z99. 89 DEPENDENCE ON OTHER ENABLING MACHINES AN 05/22/2019 RICHI MORGAN MD Ot E03. 9 HYPOTHYROIDISM, UNSPECIFIED 05/22/2019 RICHI MORGAN MD Ot E11. 40 TYPE 2 DIABETES MELLITUS WITH DIABETIC N 05/22/2019 RICHI MORGAN MD Ot E66. 01 MORBID (SEVERE) OBESITY DUE TO EXCESS CA 05/22/2019 RICHI MORGAN MD Ot E78. 00 PURE HYPERCHOLESTEROLEMIA, UNSPECIFIED 05/22/2019 RICHI MORGAN MD Ot F31. 9 BIPOLAR DISORDER, UNSPECIFIED 05/22/2019 RICHI MORGAN MD Ot F41. 9 ANXIETY DISORDER, UNSPECIFIED 05/22/2019 RICHI MORGAN MD Ot G43.909 MIGRAINE, UNSP, NOT INTRACTABLE, WITHOUT 05/22/2019 RICHI MORGAN MD Ot G47. 30 SLEEP APNEA, UNSPECIFIED 05/22/2019 RICHI MORGAN MD Ot I10 ESSENTIAL (PRIMARY) HYPERTENSION 05/22/2019 RICHI MORGAN MD Ot I25. 10 ATHSCL HEART DISEASE OF [place] CORONARY 05/22/2019 RICHI MORGAN MD Ot J44. 9 CHRONIC OBSTRUCTIVE PULMONARY DISEASE, U 05/22/2019 RICHI MORGAN MD Ot K21. 9 GASTRO-ESOPHAGEAL REFLUX DISEASE WITHOUT 05/22/2019 RICHI MORGAN MD Ot R07. 9 CHEST PAIN, UNSPECIFIED 05/22/2019 RICHI MORGAN MD Ot Z77. 22 CNTCT W AND EXPSR TO ENVIRON TOBACCO SMO 05/22/2019 RICHI MORGAN MD Ot Z79. 01 FDC (CURRENT) USE OF ANTICOAGULANT 05/22/2019 RICHI MORGAN MD Ot Z86.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 05/22/2019 RICHI MORGAN MD Ot Z88. 0 ALLERGY STATUS TO PENICILLIN 05/22/2019 RICHI MORGAN MD Ot Z88. 1 ALLERGY STATUS TO OTHER ANTIBIOTIC AGENT 05/22/2019 RICHI MORGAN MD Ot Z88. 2 ALLERGY STATUS TO SULFONAMIDES STATUS 05/22/2019 RICHI MORGAN MD Ot Z88. 5 ALLERGY STATUS TO NARCOTIC AGENT STATUS 05/22/2019 RICHI MORGAN MD Ot Z88. 6 ALLERGY STATUS TO ANALGESIC AGENT STATUS 05/22/2019 RICHI MORGAN MD Ot Z88. 8 ALLERGY STATUS TO OTH DRUG/MEDS/BIOL SUB 05/22/2019 RICHI MORGAN MD Ot Z90.710 ACQUIRED ABSENCE OF BOTH CERVIX AND UTER 05/22/2019 RICHI MORGAN MD Ot Z95. 9 PRESENCE OF CARDIAC AND VASCULAR IMPLANT 05/22/2019 RICHI MORGAN MD Ot Z98. 51 TUBAL LIGATION STATUS 05/22/2019 RICHI MORGAN MD Ot Z99. 89 DEPENDENCE ON OTHER ENABLING MACHINES AN 05/26/2019 RICHI MORGAN MD Ot E03. 9 HYPOTHYROIDISM, UNSPECIFIED 05/26/2019 RICHI MORGAN MD Ot E11. 40 TYPE 2 DIABETES MELLITUS WITH DIABETIC N 05/26/2019 RICHI MORGAN MD Ot E66. 01 MORBID (SEVERE) OBESITY DUE TO EXCESS CA 05/26/2019 RICHI MORGAN MD Ot E78. 00 PURE HYPERCHOLESTEROLEMIA, UNSPECIFIED 05/26/2019 RICHI MORGAN MD Ot F31. 9 BIPOLAR DISORDER, UNSPECIFIED 05/26/2019 RICHI MORGAN MD Ot F41. 9 ANXIETY DISORDER, UNSPECIFIED 05/26/2019 RICHI MORGAN MD Ot G43.909 MIGRAINE, UNSP, NOT INTRACTABLE, WITHOUT 05/26/2019 RICHI MORGAN MD Ot G47. 30 SLEEP APNEA, UNSPECIFIED 05/26/2019 RICHI MORGAN MD Ot I10 ESSENTIAL (PRIMARY) HYPERTENSION 05/26/2019 RICHI MORGAN MD Ot I25. 10 ATHSCL HEART DISEASE OF [place] CORONARY 05/26/2019 RICHI MORGAN MD Ot J44. 9 CHRONIC OBSTRUCTIVE PULMONARY DISEASE, U 05/26/2019 RICHI MORGAN MD Ot K21. 9 GASTRO-ESOPHAGEAL REFLUX DISEASE WITHOUT 05/26/2019 RICHI MORGAN MD, Ot R07. 9 CHEST PAIN, UNSPECIFIED 05/26/2019 RICHI MORGAN MD Ot Z77. 22 CNTCT W AND EXPSR TO ENVIRON TOBACCO SMO 05/26/2019 RICHI MORGAN MD, Ot Z79. 01 FDC (CURRENT) USE OF ANTICOAGULANT 05/26/2019 RICHI MORGAN MD Ot Z86.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 05/26/2019 RICHI MORGAN MD Ot Z88. 0 ALLERGY STATUS TO PENICILLIN 05/26/2019 RICHI MORGAN MD Ot Z88. 1 ALLERGY STATUS TO OTHER ANTIBIOTIC AGENT 05/26/2019 RICHI MORGAN MD, Ot Z88. 2 ALLERGY STATUS TO SULFONAMIDES STATUS 05/26/2019 RICHI MORGAN MD, Ot Z88. 5 ALLERGY STATUS TO NARCOTIC AGENT STATUS 05/26/2019 RICHI MORGAN MD, Ot Z88. 6 ALLERGY STATUS TO ANALGESIC AGENT STATUS 05/26/2019 RICHI MORGAN MD, Ot Z88. 8 ALLERGY STATUS TO OTH DRUG/MEDS/BIOL SUB 05/26/2019 RICHI MORGAN MD Ot Z90.710 ACQUIRED ABSENCE OF BOTH CERVIX AND UTER 05/26/2019 RICHI MORGAN MD Ot Z95. 9 PRESENCE OF CARDIAC AND VASCULAR IMPLANT 05/26/2019 RICHI MORGAN MD Ot Z98. 51 TUBAL LIGATION STATUS 05/26/2019 RICHI MORGAN MD Ot Z99. 89 DEPENDENCE ON OTHER ENABLING MACHINES AN 06/23/2019 ANAMARIA PACK MD Ot Z01.818 ENCOUNTER FOR OTHER PREPROCEDURAL EXAMIN 06/30/2019 ANAMARIA PACK MD Ot Z01.818 ENCOUNTER FOR OTHER PREPROCEDURAL EXAMIN 07/02/2019 ANAMARIA PACK MD Ot E03 .9 HYPOTHYROIDISM, UNSPECIFIED 07/02/2019 ANAMARIA PACK MD Ot E11 .9 TYPE 2 DIABETES MELLITUS WITHOUT COMPLIC 07/02/2019 ANAMARIA PACK MD Ot E66.01 MORBID (SEVERE) OBESITY DUE TO EXCESS CA 07/02/2019 ANAMARIA PACK MD Ot E78 .5 HYPERLIPIDEMIA, UNSPECIFIED 07/02/2019 ANAMARIA PACK MD Ot F17.200 NICOTINE DEPENDENCE, UNSPECIFIED, UNCOMP 07/02/2019 ANAMARIA PACK MD Ot F41 .9 ANXIETY DISORDER, UNSPECIFIED 07/02/2019 ANAMARIA PACK MD, Ot G47.33 OBSTRUCTIVE SLEEP APNEA (ADULT) (PEDIATR 07/02/2019 ANAMARIA PACK MD, Ot I10 ESSENTIAL (PRIMARY) HYPERTENSION 07/02/2019 ANAMARIA PACK MD, Ot J32 .9 CHRONIC SINUSITIS, UNSPECIFIED 07/02/2019 ANAMARIA PACK MD, Ot J44 .9 CHRONIC OBSTRUCTIVE PULMONARY DISEASE, U 07/02/2019 ANAMARIA PACK MD, Ot K21 .9 GASTRO-ESOPHAGEAL REFLUX DISEASE WITHOUT 07/02/2019 ANAMARIA PACK MD Ot Z68.43 BODY MASS INDEX (BMI) 50.0-59.9, ADULT 07/02/2019 ANAMARIA PACK MD, Ot Z79.899 OTHER LINE AND FRAME POLER (CURRENT) DRUG THERAPY 07/02/2019 ANAMARIA PACK MD, Ot Z88 .0 ALLERGY STATUS TO PENICILLIN 07/02/2019 ANAMARIA PACK MD Ot Z88 .1 ALLERGY STATUS TO OTHER ANTIBIOTIC AGENT 07/02/2019 ANAMARIA PACK MD, Ot Z88 .2 ALLERGY STATUS TO SULFONAMIDES STATUS 07/02/2019 ANAMARIA PACK MD Ot Z88 .5 ALLERGY STATUS TO NARCOTIC AGENT STATUS 07/02/2019 ANAMARIA PACK MD, Ot Z88 .6 ALLERGY STATUS TO ANALGESIC AGENT STATUS 07/02/2019 ANAMARIA PACK MD, Ot Z88 .8 ALLERGY STATUS TO OTH DRUG/MEDS/BIOL SUB 07/06/2019 ANAMARIA PACK MD Ot E03 .9 HYPOTHYROIDISM, UNSPECIFIED 07/06/2019 ANAMARIA PACK MD Ot E11 .9 TYPE 2 DIABETES MELLITUS WITHOUT COMPLIC 07/06/2019 ANAMARIA PACK MD Ot E66.01 MORBID (SEVERE) OBESITY DUE TO EXCESS CA 07/06/2019 ANAMARIA PACK MD Ot E78 .5 HYPERLIPIDEMIA, UNSPECIFIED 07/06/2019 ANAMARIA PACK MD Ot F17.200 NICOTINE DEPENDENCE, UNSPECIFIED, UNCOMP 07/06/2019 ANAMARIA PACK MD Ot F41 .9 ANXIETY DISORDER, UNSPECIFIED 07/06/2019 ANAMARIA PACK MD, Ot G47.33 OBSTRUCTIVE SLEEP APNEA (ADULT) (PEDIATR 07/06/2019 ANAMARIA PACK MD Ot I10 ESSENTIAL (PRIMARY) HYPERTENSION 07/06/2019 ANAMARIA PACK MD, Ot J32 .9 CHRONIC SINUSITIS, UNSPECIFIED 07/06/2019 ANAMARIA PACK MD, Ot J44 .9 CHRONIC OBSTRUCTIVE PULMONARY DISEASE, U 07/06/2019 ANAMARIA PACK MD, Ot K21 .9 GASTRO-ESOPHAGEAL REFLUX DISEASE WITHOUT 07/06/2019 ANAMARIA PACK MD, Ot Z68.43 BODY MASS INDEX (BMI) 50.0-59.9, ADULT 07/06/2019 ANAMARIA PACK MD, Ot Z79.899 OTHER LINE AND FRAME POLER (CURRENT) DRUG THERAPY 07/06/2019 ANAMARIA PACK MD, Ot Z88 .0 ALLERGY STATUS TO PENICILLIN 07/06/2019 ANAMARIA PACK MD, Ot Z88 .1 ALLERGY STATUS TO OTHER ANTIBIOTIC AGENT 07/06/2019 ANAMARIA PACK MD, Ot Z88 .2 ALLERGY STATUS TO SULFONAMIDES STATUS 07/06/2019 ANAMARIA PACK MD, Ot Z88 .5 ALLERGY STATUS TO NARCOTIC AGENT STATUS 07/06/2019 ANAMARIA PACK MD, Ot Z88 .6 ALLERGY STATUS TO ANALGESIC AGENT STATUS 07/06/2019 ANAMARIA PACK MD Ot Z88 .8 ALLERGY STATUS TO OTH DRUG/MEDS/BIOL SUB 07/09/2019 ANAMARIA PACK MD Ot E03 .9 HYPOTHYROIDISM, UNSPECIFIED 07/09/2019 ANAMARIA PACK MD Ot E11 .9 TYPE 2 DIABETES MELLITUS WITHOUT COMPLIC 07/09/2019 ANAMARIA PACK MD Ot E66.01 MORBID (SEVERE) OBESITY DUE TO EXCESS CA 07/09/2019 ANAMARIA PACK MD Ot E78 .5 HYPERLIPIDEMIA, UNSPECIFIED 07/09/2019 ANAMARIA PACK MD Ot F17.200 NICOTINE DEPENDENCE, UNSPECIFIED, UNCOMP 07/09/2019 ANAMARIA PACK MD Ot F41 .9 ANXIETY DISORDER, UNSPECIFIED 07/09/2019 ANAMARIA PACK MD Ot G47.33 OBSTRUCTIVE SLEEP APNEA (ADULT) (PEDIATR 07/09/2019 ANAMARIA PACK MD Ot I10 ESSENTIAL (PRIMARY) HYPERTENSION 07/09/2019 ANAMARIA PACK MD, Ot J32 .9 CHRONIC SINUSITIS, UNSPECIFIED 07/09/2019 ANAMARIA PACK MD, Ot J44 .9 CHRONIC OBSTRUCTIVE PULMONARY DISEASE, U 07/09/2019 ANAMARIA PACK MD, Ot K21 .9 GASTRO-ESOPHAGEAL REFLUX DISEASE WITHOUT 07/09/2019 ANAMARIA PACK MD, Ot Z68.43 BODY MASS INDEX (BMI) 50.0-59.9, ADULT 07/09/2019 ANAMARIA PACK MD, Ot Z79.899 OTHER [facility] (CURRENT) DRUG THERAPY 07/09/2019 PCAK MD, ANAMARIA P Ot Z88 .0 ALLERGY STATUS TO PENICILLIN 07/09/2019 ANAMARIA PACK MD Ot Z88 .1 ALLERGY STATUS TO OTHER ANTIBIOTIC AGENT 07/09/2019 ANAMARIA PACK MD Ot Z88 .2 ALLERGY STATUS TO SULFONAMIDES STATUS 07/09/2019 ANAMARIA PACK MD Ot Z88 .5 ALLERGY STATUS TO NARCOTIC AGENT STATUS 07/09/2019 ANAMARIA PACK MD Ot Z88 .6 ALLERGY STATUS TO ANALGESIC AGENT STATUS 07/09/2019 ANAMARIA PACK MD Ot Z88 .8 ALLERGY STATUS TO OTH DRUG/MEDS/BIOL SUB 07/14/2019 ANAMARIA PACK MD Ot E03 .9 HYPOTHYROIDISM, UNSPECIFIED 07/14/2019 ANAMARIA PACK MD Ot E11 .9 TYPE 2 DIABETES MELLITUS WITHOUT COMPLIC 07/14/2019 ANAMARIA PACK MD Ot E66.01 MORBID (SEVERE) OBESITY DUE TO EXCESS CA 07/14/2019 ANAMARIA PACK MD Ot E78 .5 HYPERLIPIDEMIA, UNSPECIFIED 07/14/2019 ANAMARIA PACK MD Ot F17.200 NICOTINE DEPENDENCE, UNSPECIFIED, UNCOMP 07/14/2019 ANAMARIA PACK MD Ot F41 .9 ANXIETY DISORDER, UNSPECIFIED 07/14/2019 ANAMARIA PACK MD Ot G47.33 OBSTRUCTIVE SLEEP APNEA (ADULT) (PEDIATR 07/14/2019 ANAMARIA PACK MD Ot I10 ESSENTIAL (PRIMARY) HYPERTENSION 07/14/2019 ANAMARIA PACK MD Ot J32 .9 CHRONIC SINUSITIS, UNSPECIFIED 07/14/2019 ANAMARIA PACK MD Ot J44 .9 CHRONIC OBSTRUCTIVE PULMONARY DISEASE, U 07/14/2019 ANAMARIA PACK MD Ot K21 .9 GASTRO-ESOPHAGEAL REFLUX DISEASE WITHOUT 07/14/2019 ANAMARIA PACK MD Ot Z68.43 BODY MASS INDEX (BMI) 50.0-59.9, ADULT 07/14/2019 ANAMARIA PACK MD Ot Z79.899 OTHER [facility] (CURRENT) DRUG THERAPY 07/14/2019 ANAMARIA PACK MD Ot Z88 .0 ALLERGY STATUS TO PENICILLIN 07/14/2019 ANAMARIA PACK MD Ot Z88 .1 ALLERGY STATUS TO OTHER ANTIBIOTIC AGENT 07/14/2019 ANAMARIA PACK MD Ot Z88 .2 ALLERGY STATUS TO SULFONAMIDES STATUS 07/14/2019 ANAMARIA PACK MD Ot Z88 .5 ALLERGY STATUS TO NARCOTIC AGENT STATUS 07/14/2019 ANAMARIA PACK MD Ot Z88 .6 ALLERGY STATUS TO ANALGESIC AGENT STATUS 07/14/2019 ANAMARIA PACK MD Ot Z88 .8 ALLERGY STATUS TO OTH DRUG/MEDS/BIOL SUB 01/29/2020 GILBERTO VELASQUEZ DO Ot N89.8 OTHER SPECIFIED NONINFLAMMATORY DISORDER 01/29/2020 GILBERTO VELASQUEZ DO Ot Z01.8 12 ENCOUNTER FOR PREPROCEDURAL LABORATORY E 01/29/2020 GILBERTO VELASQUEZ DO Ot Z20.8 28 CONTACT W AND EXPOSURE TO OTH VIRAL COMM 02/02/2020 ANAMARIA PACK MD Ot J32 .9 CHRONIC SINUSITIS, UNSPECIFIED 02/02/2020 ANAMARIA PACK MD Ot Z53 .8 PROCEDURE AND TREATMENT NOT CARRIED OUT 02/02/2020 ANAMARIA PACK MD Ot Z98.890 OTHER SPECIFIED POSTPROCEDURAL STATES Procedures Code [place] [address] ROUT INE VENIPUNCTURE LONG PULLEY WORKER, MARDIE A 04/03/2016 07849 COMP REHEN METABOLIC PANEL [employer] PULLEY WORKER, MARDIE A 04/03/2016 42435 ASSA Y OF FREE THYROXINE LONG PULLEY WORKER, MARDIE A 04/03/2016 09147 ASSA Y THYROID STIM HORMONE [employer] PULLEY WORKER, MARDIE A 04/03/2016 79005 COMP LETE CBC W/AUTO DIFF WBC [employer] PULLEY WORKER, MARDIE A 04/03/2016 85866 ROUT INE VENIPUNCTURE LONG PULLEY WORKER, MARDIE A 06/25/2016 02594 PROT HROMBIN TIME [employer] PULLEY WORKER, MARDIE A 06/25/2016 71190 ROUT INE VENIPUNCTURE LONG PULLEY WORKER, MARDIE A 07/13/2016 85827 META BOLIC PANEL TOTAL CA LONG PULLEY WORKER, MARDIE A 07/13/2016 85634 ROUT INE VENIPUNCTURE ZECHARIAH PULLEY WORKER, VALERY D 03/06/2018 10319 COMP REHEN METABOLIC PANEL ZECHARIAH PULLEY WORKER, VALERY D 03/06/2018 26137 LIPI D PANEL ZECHARIAH PULLEY WORKER, VALERY D 03/06/2018 70675 ASSA Y CARBAMAZEPINE TOTAL ZECHARIAH PULLEY WORKER, VALERY D 03/06/2018 04084 URIN ALYSIS AUTO W/SCOPE ZECHARIAH PULLEY WORKER, VALERY D 03/06/2018 90592 ASSA Y OF TOTAL THYROXINE ZECHARIAH PULLEY WORKER, VALERY D 03/06/2018 10318 ASSA Y THYROID STIM HORMONE VALERY BOTELLO Megan 03/06/2018 59018 COMP LETE CBC W/AUTO DIFF WBC VALERY BOTELLO Megan 03/06/2018 17145 URIN E CULTURE/COLONY COUNT VALERY BOTELLO Megan 03/06/2018 05851 ELEC TROCARDIOGRAM TRACING VALERY BOTELLO Megan 03/06/2018 70327 GWEN GENCY DEPT VISIT VALERY BOTELLO Megan 03/06/2018 Results Test Result Range COMPLETE BLOOD COUNT - 04/04/16 07:19 Platelet 250 10^3u 142-424 MPV 11.4 FL 9.4-12.4 Sherman # 0.69 10^3u 0.0-1.0 RBC 4.83 10^6u 4.04-6.13 Sherman % 5.7 % 0-12 RDW 17.0 % [...] MG/DL 0.6-1.3 Complete blood count (CBC) with automate d white blood cell (WBC) differential - 05/02/18 20:18 Blood leukocytes automated count (number/volume) 10.8 10*3/uL 4.3-11.0 Blood erythrocytes automated count (number/volume) 4.62 10*6/uL 4.35-5.85 Venous blood hemoglobin measurement (mass/volume) 12.2 g/dL 11.5-16.0 Blood hematocrit (volume fraction) 39 % 35-52 Automated erythrocyte mean corpuscular volume 84 [ foz_us] 80-99 Automated erythrocyte mean corpuscular h emoglobin (mass per erythrocyte) 26 pg 25-34 Automated erythrocyte mean corpuscular h emoglobin concentration measurement (mass/volume) 31 g/dL 32-36 Automated erythrocyte distribution width ratio 18. 7 % 10.0- 14.5 Automated blood platelet count [...] 10*3 1.0-4.0 Blood monocytes automated count (number/volume) 0. 8 10*3 0.0-1.0 Automated eosinophil count 0.3 10*3/uL 0 .0-0.3 Automated blood basophil count (count/volume) 0.0 10*3/uL 0.0-0.1 PT panel in platelet poor plasma by coag ulation assay - 05/02/18 20:18 Prothrombin time (PT) in platelet poor plasma by coagu lation assay 13.3 s 12.2-14.7 INR in platelet poor plasma or blood by coagulation as say 1.0 0.8-1.4 Activated partial thromboplastin time (a PTT) in platelet poor plasma bycoagulation assay - 05/02/18 20:18 Activated partial thromboplastin time (a PTT) in platelet poor plasma bycoagulation assay 28 s 24-35 Fibrin D-dimer FEU measurement in platel et poor plasma (mass/volume) - 05/02/18 20:18 Fibrin [...] 5-14 Serum or plasma urea nitrogen measurement (mass/volume ) 9 mg/dL 7-18 Serum or plasma creatinine measurement (mass/volume) 0.74 mg/dL 0.60-1.30 Serum or plasma urea nitrogen/creatinine mass ratio 12 NRG Serum or plasma creatinine measurement w ith calculation of estimated glomerular filtration rate > NRG Serum or plasma glucose measurement (mass/volume) 120 mg/dL 70-105 Serum or plasma calcium measurement (mass/volume) 8.9 mg/dL 8.5-10.1 Serum or plasma total bilirubin measurement (mass/volu me) 0.3 mg/dL 0.1-1.0 Serum or plasma alkaline phosphatase moon surement (enzymatic activity/volume) 141 U/L 40-136 Serum or plasma aspartate aminotransfera se measurement (enzymatic activity/volume) 29 U/L 5-34 Serum or plasma alanine aminotransferase measurement (enzymatic activity/volume) 25 U/L 0-55 Serum or plasma protein measurement (mass/volume) 7.1 g/dL 6.4-8.2 Serum or plasma albumin measurement (mass/volume) 3.3 g/dL 3.2-4.5 CALCIUM CORRECTED 9.5 mg/dL 8.5-10.1 Magnesium - 05/02/18 20:18 Magnesium 2.2 mg/dL 1.8-2.4 Serum or plasma troponin i.cardiac measu rement (mass/volume) - 05/02/18 20:18 Serum or plasma troponin i.cardiac measurement (mass/v olume) < ng/mL <0.30 Myoglobin, serum - 05/02/18 20:18 Myoglobin, serum 26.2 ng/mL 10.0-92.0 Serum or plasma troponin i.cardiac measu rement (mass/volume) - 05/02/18 22:19 Serum or plasma troponin i.cardiac measurement (mass/v olume) < ng/mL <0.30 Complete blood count (CBC) with automate d white blood cell (WBC) differential - 05/10/18 19:10 Blood leukocytes automated count (number/volume) 9.9 10*3/uL 4.3-11.0 Blood erythrocytes automated count (number/volume) 4.42 10*6/uL 4.35-5.85 Venous blood hemoglobin measurement (mass/volume) 11.8 g/dL 11.5-16.0 Blood hematocrit (volume fraction) 38 % 35-52 Automated erythrocyte mean corpuscular volume 85 [ foz_us] 80-99 Automated erythrocyte mean corpuscular h emoglobin (mass per erythrocyte) 27 pg 25-34 Automated erythrocyte mean corpuscular h emoglobin concentration measurement (mass/volume) 31 g/dL 32-36 Automated erythrocyte distribution width ratio 18. 6 % 10.0- 14.5 Automated blood platelet count [...] 10*3 1.0-4.0 Blood monocytes automated count (number/volume) 0. 9 10*3 0.0-1.0 Automated eosinophil count 0.4 10*3/uL 0 .0-0.3 Automated blood basophil count (count/volume) 0.1 10*3/uL 0.0-0.1 Comprehensive metabolic panel - 05/10/18 19:10 Serum or plasma sodium measurement (moles/volume) 141 mmol/L 135-145 Serum or plasma potassium measurement (moles/volume) 3.8 mmol/L 3.6-5.0 Serum or plasma chloride measurement (moles/volume) 111 mmol/L 98-107 Carbon dioxide 20 mmol/L 21-32 Serum or plasma anion gap determination (moles/volume) 10 mmol/L 5-14 Serum or plasma urea nitrogen measurement (mass/volume ) 11 mg/dL 7-18 Serum or plasma creatinine measurement (mass/volume) 0.69 mg/dL 0.60-1.30 Serum or plasma urea nitrogen/creatinine mass ratio 16 NRG Serum or plasma creatinine measurement w ith calculation of estimated glomerular filtration rate > NRG Serum or plasma glucose measurement (mass/volume) 161 mg/dL 70-105 Serum or plasma calcium measurement (mass/volume) 8.7 mg/dL 8.5-10.1 Serum or plasma total bilirubin measurement (mass/volu me) 0.2 mg/dL 0.1-1.0 Serum or plasma alkaline phosphatase moon surement (enzymatic activity/volume) 126 U/L 40-136 Serum or plasma aspartate aminotransfera se measurement (enzymatic activity/volume) 20 U/L 5-34 Serum or plasma alanine aminotransferase measurement (enzymatic activity/volume) 21 U/L 0-55 Serum or plasma protein measurement (mass/volume) 6.7 g/dL 6.4-8.2 Serum or plasma albumin measurement (mass/volume) 3.2 g/dL 3.2-4.5 CALCIUM CORRECTED 9.3 mg/dL 8.5-10.1 Complete urinalysis with reflex to cultu re - 05/10/18 20:38 Urine color determination YELLOW NRG Urine clarity determination CLEAR NR G Urine pH measurement by test strip 7 5-9 Specific gravity of urine by test strip 1.010 1.016-1.022 Urine protein assay by test strip, semi-quantitative NEGATIVE NEGATIVE Urine glucose detection by automated test strip NE GATIVE NEGATIVE Erythrocytes detection in urine sediment by light micr oscopy NEGATIVE NEGATIVE Urine ketones detection by automated test strip NE GATIVE NEGATIVE Urine nitrite detection by test strip NEGATIVE NEGATIVE Urine total bilirubin detection by test strip NEGA TIVE NEGATIVE Urine urobilinogen measurement by automated test strip (mass/volume) 1 mg/dL NORMAL Urine leukocyte esterase detection by dipstick NEG ATIVE NEGATIVE Automated urine sediment erythrocyte cou nt by microscopy (number/high power field) NONE NRG Automated urine sediment leukocyte count by microscopy (number/high power field) NONE NRG Bacteria detection in urine sediment by light microsco py NONE NRG Squamous epithelial cells detection in u rine sediment by light microscopy 0-2 NRG Crystals detection in urine sediment by light microsco py NONE NRG Casts detection in urine sediment by light microscopy NONE NRG Mucus detection in urine sediment by light microscopy NEGATIVE NRG Complete urinalysis with reflex to culture NO NRG Complete blood count (CBC) with automate d white blood cell (WBC) differential - 05/12/18 18:50 Blood leukocytes automated count (number/volume) 10.6 10*3/uL 4.3-11.0 Blood erythrocytes automated count (number/volume) 4.65 10*6/uL 4.35-5.85 Venous blood hemoglobin measurement (mass/volume) 12.3 g/dL 11.5-16.0 Blood hematocrit (volume fraction) 40 % 35-52 Automated erythrocyte mean corpuscular volume 85 [ foz_us] 80-99 Automated erythrocyte mean corpuscular h emoglobin (mass per erythrocyte) 27 pg 25-34 Automated erythrocyte mean corpuscular h emoglobin concentration measurement (mass/volume) 31 g/dL 32-36 Automated erythrocyte distribution width ratio 18. 7 % 10.0- 14.5 Automated blood platelet count [...] 10*3 1.0-4.0 Blood monocytes automated count (number/volume) 0. 9 10*3 0.0-1.0 Automated eosinophil count 0.3 10*3/uL 0 .0-0.3 Automated blood basophil count (count/volume) 0.0 10*3/uL 0.0-0.1 PT panel in platelet poor plasma by coag ulation assay - 05/12/18 18:50 Prothrombin time (PT) in platelet poor plasma by coagu lation assay 13.6 s 12.2-14.7 INR in platelet poor plasma or blood by coagulation as say 1.0 0.8-1.4 Activated partial thromboplastin time (a PTT) in platelet poor plasma bycoagulation assay - 05/12/18 18:50 Activated partial thromboplastin time (a PTT) in platelet poor plasma bycoagulation assay 31 s 24-35 Comprehensive metabolic panel - 05/12/18 18:50 Serum or plasma sodium measurement (moles/volume) 142 mmol/L 135-145 Serum or plasma potassium measurement (moles/volume) 4.4 mmol/L 3.6-5.0 Serum or plasma chloride measurement (moles/volume) 113 mmol/L 98-107 Carbon dioxide 21 mmol/L 21-32 Serum or plasma anion gap determination (moles/volume) 8 mmol/L 5-14 Serum or plasma urea nitrogen measurement (mass/volume ) 7 mg/dL 7-18 Serum or plasma creatinine measurement (mass/volume) 0.72 mg/dL 0.60-1.30 Serum or plasma urea nitrogen/creatinine mass ratio 10 NRG Serum or plasma creatinine measurement w ith calculation of estimated glomerular filtration rate > NRG Serum or plasma glucose measurement (mass/volume) 193 mg/dL 70-105 Serum or plasma calcium measurement (mass/volume) 8.7 mg/dL 8.5-10.1 Serum or plasma total bilirubin measurement (mass/volu me) 0.2 mg/dL 0.1-1.0 Serum or plasma alkaline phosphatase moon surement (enzymatic activity/volume) 131 U/L 40-136 Serum or plasma aspartate aminotransfera se measurement (enzymatic activity/volume) 26 U/L 5-34 Serum or plasma alanine aminotransferase measurement (enzymatic activity/volume) 22 U/L 0-55 Serum or plasma protein measurement (mass/volume) 7.4 g/dL 6.4-8.2 Serum or plasma albumin measurement (mass/volume) 3.4 g/dL 3.2-4.5 CALCIUM CORRECTED 9.2 mg/dL 8.5-10.1 Magnesium - 05/12/18 18:50 Magnesium 2.4 mg/dL 1.8-2.4 Myoglobin, serum - 05/12/18 18:50 Myoglobin, serum 23.2 ng/mL 10.0-92.0 Serum or plasma troponin i.cardiac measu rement (mass/volume) - 05/12/18 18:50 Serum or plasma troponin i.cardiac measurement (mass/v olume) < ng/mL <0.30 Lipase - 05/12/18 18:50 Lipase 43 U/L 8-78 Myoglobin, serum - 05/12/18 18:50 Myoglobin, serum 23.2 ng/mL 10.0-92.0 Lipase - 05/12/18 18:50 Lipase 43 U/L 8-78 Serum or plasma lithium measurement (mol es/volume) - 05/12/18 18:50 BNP level < pg/mL <100.0 Serum or plasma troponin i.cardiac measu rement (mass/volume) - 05/12/18 20:56 Serum or plasma troponin i.cardiac measurement (mass/v olume) < ng/mL <0.30 Complete blood count (CBC) with automate d white blood cell (WBC) differential - 05/23/18 18:37 Blood leukocytes automated count (number/volume) 11.1 10*3/uL 4.3-11.0 Blood erythrocytes automated count (number/volume) 4.55 10*6/uL 4.35-5.85 Venous blood hemoglobin measurement (mass/volume) 12.3 g/dL 11.5-16.0 Blood hematocrit (volume fraction) 39 % 35-52 Automated erythrocyte mean corpuscular volume 85 [ foz_us] 80-99 Automated erythrocyte mean corpuscular h emoglobin (mass per erythrocyte) 27 pg 25-34 Automated erythrocyte mean corpuscular h emoglobin concentration measurement (mass/volume) 32 g/dL 32-36 Automated erythrocyte distribution width ratio 18. 7 % 10.0- 14.5 Automated blood platelet count [...] 10*3 1.0-4.0 Blood monocytes automated count (number/volume) 1. 0 10*3 0.0-1.0 Automated eosinophil count 0.3 10*3/uL 0 .0-0.3 Automated blood basophil count (count/volume) 0.1 10*3/uL 0.0-0.1 Comprehensive metabolic panel - 05/23/18 18:37 Serum or plasma sodium measurement (moles/volume) 140 mmol/L 135-145 Serum or plasma potassium measurement (moles/volume) 3.8 mmol/L 3.6-5.0 Serum or plasma chloride measurement (moles/volume) 106 mmol/L 98-107 Carbon dioxide 26 mmol/L 21-32 Serum or plasma anion gap determination (moles/volume) 8 mmol/L 5-14 Serum or plasma urea nitrogen measurement (mass/volume ) 10 mg/dL 7-18 Serum or plasma creatinine measurement (mass/volume) 0.78 mg/dL 0.60-1.30 Serum or plasma urea nitrogen/creatinine mass ratio 13 NRG Serum or plasma creatinine measurement w ith calculation of estimated glomerular filtration rate > NRG Serum or plasma glucose measurement (mass/volume) 98 mg/dL 70-105 Serum or plasma calcium measurement (mass/volume) 9.0 mg/dL 8.5-10.1 Serum or plasma total bilirubin measurement (mass/volu me) 0.4 mg/dL 0.1-1.0 Serum or plasma alkaline phosphatase moon surement (enzymatic activity/volume) 144 U/L 40-136 Serum or plasma aspartate aminotransfera se measurement (enzymatic activity/volume) 29 U/L 5-34 Serum or plasma alanine aminotransferase measurement (enzymatic activity/volume) 27 U/L 0-55 Serum or plasma protein measurement (mass/volume) 7.7 g/dL 6.4-8.2 Serum or plasma albumin measurement (mass/volume) 3.6 g/dL 3.2-4.5 CALCIUM CORRECTED 9.3 mg/dL 8.5-10.1 Magnesium - 05/23/18 18:37 Magnesium 2.1 mg/dL 1.8-2.4 Serum or plasma troponin i.cardiac measu rement (mass/volume) - 05/23/18 18:37 Serum or plasma troponin i.cardiac measurement (mass/v olume) < ng/mL <0.30 PT panel in platelet poor plasma by coag ulation assay - 05/23/18 18:37 Prothrombin time (PT) in platelet poor plasma by coagu lation assay 14.6 s 12.2-14.7 INR in platelet poor plasma or blood by coagulation as say 1.1 0.8-1.4 Activated partial thromboplastin time (a PTT) in platelet poor plasma bycoagulation assay - 05/23/18 18:37 Activated partial thromboplastin time (a PTT) in platelet poor plasma bycoagulation assay 32 s 24-35 Myoglobin, serum - 05/23/18 18:37 Myoglobin, serum 25.1 ng/mL 10.0-92.0 Serum or plasma lithium measurement (mol es/volume) - 05/23/18 18:37 BNP level < pg/mL <100.0 Automated blood complete blood count (he mogram) panel - 06/18/18 11:21 Blood leukocytes automated count (number/volume) 9.4 10*3/uL 4.3-11.0 Blood erythrocytes automated count (number/volume) 4.76 10*6/uL 4.35-5.85 Venous blood hemoglobin measurement (mass/volume) 12.9 g/dL 11.5-16.0 Blood hematocrit (volume fraction) 41 % 35-52 Automated erythrocyte mean corpuscular volume 87 [ foz_us] 80-99 Automated erythrocyte mean corpuscular h emoglobin (mass per erythrocyte) 27 pg 25-34 Automated erythrocyte mean corpuscular h emoglobin concentration measurement (mass/volume) 31 g/dL 32-36 Automated erythrocyte distribution width ratio 18. 7 % 10.0- 14.5 Automated blood platelet count (count/volume) 277 10*3/uL 130-400 Automated blood platelet mean volume measurement 10.0 [foz_us] 7.4-10.4 PT panel in platelet poor plasma by coag ulation assay - 06/18/18 11:21 Prothrombin time (PT) in platelet poor plasma by coagu lation assay 14.6 s 12.2-14.7 INR in platelet poor plasma or blood by coagulation as say 1.1 0.8-1.4 Activated partial thromboplastin time (a PTT) in platelet poor plasma bycoagulation assay - 06/18/18 11:21 Activated partial thromboplastin time (a PTT) in platelet poor plasma bycoagulation assay 30 s 24-35 Comprehensive metabolic panel - 06/18/18 11:21 Serum or plasma sodium measurement (moles/volume) 142 mmol/L 135-145 Serum or plasma potassium measurement (moles/volume) 3.8 mmol/L 3.6-5.0 Serum or plasma chloride measurement (moles/volume) 107 mmol/L 98-107 Carbon dioxide 23 mmol/L 21-32 Serum or plasma anion gap determination (moles/volume) 12 mmol/L 5-14 Serum or plasma urea nitrogen measurement (mass/volume ) 11 mg/dL 7-18 Serum or plasma creatinine measurement (mass/volume) 0.76 mg/dL 0.60-1.30 Serum or plasma urea nitrogen/creatinine mass ratio 14 NRG Serum or plasma creatinine measurement w ith calculation of estimated glomerular filtration rate > NRG Serum or plasma glucose measurement (mass/volume) 101 mg/dL 70-105 Serum or plasma calcium measurement (mass/volume) 9.5 mg/dL 8.5-10.1 Serum or plasma total bilirubin measurement (mass/volu me) 0.4 mg/dL 0.1-1.0 Serum or plasma alkaline phosphatase moon surement (enzymatic activity/volume) 154 U/L 40-136 Serum or plasma aspartate aminotransfera se measurement (enzymatic activity/volume) 26 U/L 5-34 Serum [...] Serum or plasma cholesterol in HDL measurement (mass/v olume) 30 mg/dL 40-60 Cholesterol in LDL [mass/volume] in serum or plasma by direct assay 78 mg/dL 1-129 Serum or plasma cholesterol in VLDL measurement (mass/ volume) 30 mg/dL 5-40 Methicillin resistant Staphylococcus aur eus (MRSA) screening culture - 06/18/18 11:21 Methicillin resistant Staphylococcus aureus (MRSA) scr eening culture NEG NRG Serum or plasma lithium measurement (mol es/volume) - 06/29/18 16:51 BNP level < pg/mL <100.0 Complete blood count (CBC) with automate d white blood cell (WBC) differential - 06/29/18 16:59 Blood leukocytes automated count (number/volume) 10.8 10*3/uL 4.3-11.0 Blood erythrocytes automated count (number/volume) 4.26 10*6/uL 4.35-5.85 Venous blood hemoglobin measurement (mass/volume) 11.6 g/dL 11.5-16.0 Blood hematocrit (volume fraction) 38 % 35-52 Automated erythrocyte mean corpuscular volume 89 [ foz_us] 80-99 Automated erythrocyte mean corpuscular h emoglobin (mass per erythrocyte) 27 pg 25-34 Automated erythrocyte mean corpuscular h emoglobin concentration measurement (mass/volume) 31 g/dL 32-36 Automated erythrocyte distribution width ratio 18. 0 % 10.0- 14.5 Automated blood platelet count [...] 10*3 1.0-4.0 Blood monocytes automated count (number/volume) 1. 0 10*3 0.0-1.0 Automated eosinophil count 0.2 10*3/uL 0 .0-0.3 Automated blood basophil count (count/volume) 0.0 10*3/uL 0.0-0.1 PT panel in platelet poor plasma by coag ulation assay - 06/29/18 16:59 Prothrombin time (PT) in platelet poor plasma by coagu lation assay 14.6 s 12.2-14.7 INR in platelet poor plasma or blood by coagulation as say 1.1 0.8-1.4 Activated partial thromboplastin time (a PTT) in platelet poor plasma bycoagulation assay - 06/29/18 16:59 Activated partial thromboplastin time (a PTT) in platelet poor plasma bycoagulation assay 27 s 24-35 Comprehensive metabolic panel - 06/29/18 16:59 Serum or plasma sodium measurement (moles/volume) 142 mmol/L 135-145 Serum or plasma potassium measurement (moles/volume) 3.8 mmol/L 3.6-5.0 Serum or plasma chloride measurement (moles/volume) 111 mmol/L 98-107 Carbon dioxide 21 mmol/L 21-32 Serum or plasma anion gap determination (moles/volume) 10 mmol/L 5-14 Serum or plasma urea nitrogen measurement (mass/volume ) 10 mg/dL 7-18 Serum or plasma creatinine measurement (mass/volume) 0.74 mg/dL 0.60-1.30 Serum or plasma urea nitrogen/creatinine mass ratio 14 NRG Serum or plasma creatinine measurement w ith calculation of estimated glomerular filtration rate > NRG Serum or plasma glucose measurement (mass/volume) 156 mg/dL 70-105 Serum or plasma calcium measurement (mass/volume) 8.8 mg/dL 8.5-10.1 Serum or plasma total bilirubin measurement (mass/volu me) 0.3 mg/dL 0.1-1.0 Serum or plasma alkaline phosphatase moon surement (enzymatic activity/volume) 139 U/L 40-136 Serum or plasma aspartate aminotransfera se measurement (enzymatic activity/volume) 26 U/L 5-34 Serum or plasma alanine aminotransferase measurement (enzymatic activity/volume) 23 U/L 0-55 Serum or plasma protein measurement (mass/volume) 6.9 g/dL 6.4-8.2 Serum or plasma albumin measurement (mass/volume) 3.3 g/dL 3.2-4.5 CALCIUM CORRECTED 9.4 mg/dL 8.5-10.1 Magnesium - 06/29/18 16:59 Magnesium 2.1 mg/dL 1.8-2.4 Serum or plasma troponin i.cardiac measu rement (mass/volume) - 06/29/18 16:59 Serum or plasma troponin i.cardiac measurement (mass/v olume) < ng/mL <0.30 Myoglobin, serum - 06/29/18 16:59 Myoglobin, serum 29.6 ng/mL 10.0-92.0 Complete urinalysis with reflex to cultu re - 06/29/18 18:55 Urine color determination YELLOW NRG Urine clarity determination CLEAR NR G Urine pH measurement by test strip 7 5-9 Specific gravity of urine by test strip 1.005 1.016-1.022 Urine protein assay by test strip, semi-quantitative 1+ NEGATIVE Urine glucose detection by automated test strip NE GATIVE NEGATIVE Erythrocytes detection in urine sediment by light micr oscopy 1+ NEGATIVE Urine ketones detection by automated test strip NE GATIVE NEGATIVE Urine nitrite detection by test strip NEGATIVE NEGATIVE Urine total bilirubin detection by test strip NEGA TIVE NEGATIVE Urine urobilinogen measurement by automated test strip (mass/volume) 1 mg/dL NORMAL Urine leukocyte esterase detection by dipstick 2+ NEGATIVE Automated urine sediment erythrocyte cou nt by microscopy (number/high power field) [HPF] NRG Automated urine sediment leukocyte count by microscopy (number/high power field) [HPF] NRG Bacteria detection in urine sediment by light microsco py TRACE NRG Squamous epithelial cells detection in u rine sediment by light microscopy 0-2 NRG Crystals detection in urine sediment by light microsco py NONE NRG Casts detection in urine sediment by light microscopy NONE NRG Mucus detection in urine sediment by light microscopy NEGATIVE NRG Complete urinalysis with reflex to culture YES NRG Bacterial urine culture - 06/29/18 18:55 Bacterial urine culture [id number] NRG COLONY COUNT 50,000 CFU/ML NRG FTX;REPORTABLE ID REPORTED 06/30/18 17:05 NRG FREE TEXT ENTRY 2 SENSITIVITY REPORTED 07/01/18 14: 05 NRG RML Sensitivity Panel - 06/29/18 18:55 Gentamicin susceptibility test by minimum inhibitory c oncentration <= NRG Trimethoprim/sulfamethoxazole susceptibi lity test by minimum inhibitoryconcentration R NRG Levofloxacin susceptibility test by minimum inhibitory concentration > NRG Ampicillin susceptibility test by minimum inhibitory c oncentration <= NRG Cefazolin susceptibility test by minimum inhibitory co ncentration 8 NRG Ceftriaxone susceptibility test by minimum inhibitory concentration <= NRG Ciprofloxacin susceptibility test by minimum inhibitor y concentration > NRG Nitrofurantoin susceptibility test by mi nimum inhibitory concentration > NRG Amoxicillin and clavulanate potassium susc GERARDO <= NRG Serum or plasma troponin i.cardiac measu rement (mass/volume) - 06/29/18 20:18 Serum or plasma troponin i.cardiac measurement (mass/v olume) < ng/mL <0.30 Complete urinalysis with reflex to cultu re - 07/14/18 12:50 Urine color determination YELLOW NRG Urine clarity determination CLEAR NR G Urine pH measurement by test strip 7 5-9 Specific gravity of urine by test strip 1.010 1.016-1.022 Urine protein assay by test strip, semi-quantitative 1+ NEGATIVE Urine glucose detection by automated test strip NE GATIVE NEGATIVE Erythrocytes detection in urine sediment by light micr oscopy NEGATIVE NEGATIVE Urine ketones detection by automated test strip NE GATIVE NEGATIVE Urine nitrite detection by test strip NEGATIVE NEGATIVE Urine total bilirubin detection by test strip NEGA TIVE NEGATIVE Urine urobilinogen measurement by automated test strip (mass/volume) NORMAL NORMAL Urine leukocyte esterase detection by dipstick NEG ATIVE NEGATIVE Automated urine sediment erythrocyte cou nt by microscopy (number/high power field) NONE NRG Automated urine sediment leukocyte count by microscopy (number/high power field) NONE NRG Bacteria detection in urine sediment by light microsco py NEGATIVE NRG Squamous epithelial cells detection in u rine sediment by light microscopy 5-10 NRG Crystals detection in urine sediment by light microsco py NONE NRG Casts detection in urine sediment by light microscopy NONE NRG Mucus detection in urine sediment by light microscopy NEGATIVE NRG Complete urinalysis with reflex to culture NO NRG Complete blood count (CBC) with automate d white blood cell (WBC) differential - 05/19/19 22:43 Blood leukocytes automated count (number/volume) 10.5 10*3/uL 4.3-11.0 Blood erythrocytes automated count (number/volume) 4.22 10*6/uL 4.35-5.85 Venous blood hemoglobin measurement (mass/volume) 12.0 g/dL 11.5-16.0 Blood hematocrit (volume fraction) 39 % 35-52 Automated erythrocyte mean corpuscular volume 92 [ foz_us] 80-99 Automated erythrocyte mean corpuscular h emoglobin (mass per erythrocyte) 28 pg 25-34 Automated erythrocyte mean corpuscular h emoglobin concentration measurement (mass/volume) 31 g/dL 32-36 Automated erythrocyte distribution width ratio 16. 4 % 10.0- 14.5 Automated blood platelet count (count/volume) 207 10*3/uL 130-400 Automated blood platelet mean volume measurement 9.9 [foz_us] 7.4-10.4 Automated blood neutrophils/100 leukocytes 60 % 42-75 Automated blood lymphocytes/100 leukocytes 26 % 12-44 Blood monocytes/100 leukocytes 11 % 0-12 Automated blood eosinophils/100 leukocytes 2 % 0-10 Automated blood basophils/100 leukocytes 0 % 0-10 Blood neutrophils automated count (number/volume) 6.3 10*3 1.8-7.8 Blood lymphocytes automated count (number/volume) 2.8 10*3 1.0-4.0 Blood monocytes automated count (number/volume) 1. 1 10*3 0.0-1.0 Automated eosinophil count 0.3 10*3/uL 0 .0-0.3 Automated blood basophil count (count/volume) 0.0 10*3/uL 0.0-0.1 PT panel in platelet poor plasma by coag ulation assay - 05/19/19 22:43 Prothrombin time (PT) in platelet poor plasma by coagu lation assay 16.1 s 12.2-14.7 INR in platelet poor plasma or blood by coagulation as say 1.2 0.8-1.4 Activated partial thromboplastin time (a PTT) in platelet poor plasma bycoagulation assay - 05/19/19 22:43 Activated partial thromboplastin time (a PTT) in platelet poor plasma bycoagulation assay 36 s 24-35 Comprehensive metabolic panel - 05/19/19 22:43 Serum or plasma sodium measurement (moles/volume) 143 mmol/L 135-145 Serum or plasma potassium measurement (moles/volume) 3.6 mmol/L 3.6-5.0 Serum or plasma chloride measurement (moles/volume) 109 mmol/L 98-107 Carbon dioxide 24 mmol/L 21-32 Serum or plasma anion gap determination (moles/volume) 10 mmol/L 5-14 Serum or plasma urea nitrogen measurement (mass/volume ) 8 mg/dL 7-18 Serum or plasma creatinine measurement (mass/volume) 0.75 mg/dL 0.60-1.30 Serum or plasma urea nitrogen/creatinine mass ratio 11 NRG Serum or plasma creatinine measurement w ith calculation of estimated glomerular filtration rate > NRG Serum or plasma glucose measurement (mass/volume) 161 mg/dL 70-105 Serum or plasma calcium measurement (mass/volume) 8.6 mg/dL 8.5-10.1 Serum or plasma total bilirubin measurement (mass/volu me) 0.3 mg/dL 0.1-1.0 Serum or plasma alkaline phosphatase moon surement (enzymatic activity/volume) 121 U/L 40-136 Serum or plasma aspartate aminotransfera se measurement (enzymatic activity/volume) 30 U/L 5-34 Serum or plasma alanine aminotransferase measurement (enzymatic activity/volume) 20 U/L 0-55 Serum or plasma protein measurement (mass/volume) 7.7 g/dL 6.4-8.2 Serum or plasma albumin measurement (mass/volume) 3.2 g/dL 3.2-4.5 CALCIUM CORRECTED 9.2 mg/dL 8.5-10.1 Magnesium - 05/19/19 22:43 Magnesium 2.0 mg/dL 1.6-2.4 Serum or plasma troponin i.cardiac measu rement (mass/volume) - 05/19/19 22:43 Serum or plasma troponin i.cardiac measurement (mass/v olume) < ng/mL <0.028 Myoglobin, serum - 05/19/19 22:43 Myoglobin, serum 26.7 ng/mL 10.0-92.0 Serum or plasma lithium measurement (mol es/volume) - 05/19/19 22:43 BNP PT 11.1 pg/mL <100.0 Capillary blood glucose measurement by g lucometer (mass/volume) - 07/02/19 08:35 Capillary blood glucose measurement by glucometer (mas s/volume) 133 mg/dL 70-110 Complete blood count (CBC) with automate d white blood cell (WBC) differential - 07/02/19 08:55 Blood leukocytes automated count (number/volume) 9.5 10*3/uL 4.3-11.0 Blood erythrocytes automated count (number/volume) 4.19 10*6/uL 4.35-5.85 Venous blood hemoglobin measurement (mass/volume) 11.4 g/dL 11.5-16.0 Blood hematocrit (volume fraction) 38 % 35-52 Automated erythrocyte mean corpuscular volume 91 [ foz_us] 80-99 Automated erythrocyte mean corpuscular h emoglobin (mass per erythrocyte) 27 pg 25-34 Automated erythrocyte mean corpuscular h emoglobin concentration measurement (mass/volume) 30 g/dL 32-36 Automated erythrocyte distribution width ratio 17. 0 % 10.0- 14.5 Automated blood platelet count (count/volume) 214 10*3/uL 130-400 Automated blood platelet mean volume measurement 10.1 [foz_us] 7.4-10.4 Automated blood neutrophils/100 leukocytes 63 % 42-75 Automated blood lymphocytes/100 leukocytes 26 % 12-44 Blood monocytes/100 leukocytes 8 % 0-12 Automated blood eosinophils/100 leukocytes 2 % 0-10 Automated blood basophils/100 leukocytes 0 % 0-10 Blood neutrophils automated count (number/volume) 6.0 10*3 1.8-7.8 Blood lymphocytes automated count (number/volume) 2.5 10*3 1.0-4.0 Blood monocytes automated count (number/volume) 0. 8 10*3 0.0-1.0 Automated eosinophil count 0.2 10*3/uL 0 .0-0.3 Automated blood basophil count (count/volume) 0.0 10*3/uL 0.0-0.1 Whole blood basic metabolic panel - 03/13 08:55 Serum or plasma sodium measurement (moles/volume) 141 mmol/L 135-145 Serum or plasma potassium measurement (moles/volume) 4.0 mmol/L 3.6-5.0 Serum or plasma chloride measurement (moles/volume) 107 mmol/L 98-107 Carbon dioxide 25 mmol/L 21-32 Serum or plasma anion gap determination (moles/volume) 9 mmol/L 5-14 Serum or plasma urea nitrogen measurement (mass/volume ) 10 mg/dL 7-18 Serum or plasma creatinine measurement (mass/volume) 0.78 mg/dL 0.60-1.30 Serum or plasma urea nitrogen/creatinine mass ratio 13 NRG Serum or plasma creatinine measurement w ith calculation of estimated glomerular filtration rate > NRG Serum or plasma glucose measurement (mass/volume) 138 mg/dL 70-105 Serum or plasma calcium measurement (mass/volume) 8.7 mg/dL 8.5-10.1 Methicillin resistant Staphylococcus aur eus (MRSA) screening culture - 07/02/19 08:55 Methicillin resistant Staphylococcus aureus (MRSA) scr eening culture NEG NRG Bacteria identification in isolate by an aerobe culture - 07/02/19 10:45 FREE TEXT EXTERNAL SEE COMMENTS NRG QUANTITY OF GROWTH Rare NRG Bacteria identification in isolate by anaerobe culture [id number] NR Fungus culture - 07/02/19 10:45 Gram stain microscopy - 07/02/19 10:45 Gram stain microscopy NO BACTERIA SEEN NRG Bacteria identification in wound by cult ure - 07/02/19 10:45 Bacteria identification in wound by culture SEE CO MMEN NRG FREE TEXT EXTERNAL SUSCEPTIBILITY REPORTED 07/04 12 :50 NRG QUANTITY OF GROWTH . NRG Dirithromycin susceptibility test by dis k diffusion - 07/02/19 10:45 Oxacillin susceptibility test by minimum inhibitory co ncentration 0.5 NRG Clindamycin susceptibility test by minimum inhibitory concentration R NRG Erythromycin susceptibility test by minimum inhibitory concentration > NRG Trimethoprim/sulfamethoxazole susceptibi lity test by minimum inhibitoryconcentration <= NRG Vancomycin susceptibility test by minimum inhibitory c oncentration <= NRG Levofloxacin susceptibility test by minimum inhibitory concentration <= NRG Rifampin susceptibility test by minimum inhibitory con centration <= NRG Cefazolin susceptibility test by minimum inhibitory co ncentration <= NRG Moxifloxacin susceptibility test by minimum inhibitory concentration <= NRG Minocycline susc GERARDO <= NRG Coronavirus SARS-CoV-2 SO 2018 0 13:25 Coronavirus Ab [Units/volume] in Serum Negative Negative Encounters ACCT No. Visit Date/Time Discharge Status Pt. Type Provider Facility Loc./Unit Complaint [id number] 03/06/2018 06:30:00 03/12/2018 15:15 :00 DIS Inpatient TRE GARCIA MD [id number] 03/06/2018 04:04:00 03/06/2018 06:24 :00 DIS Emergency [facility] [id number] 01/27/2018 05:25:00 01/29/2018 13:00 :00 DIS Inpatient TRE GARCIA MD [facility] [id number] 01/21/2018 04:30:00 01/23/2018 12:00 :00 DIS Inpatient TRE GARCIA MD [facility] [id number] 07/13/2016 17:03:00 07/13/2016 17:03 :00 DIS Outpatient [facility] OTHER [id number] 06/25/2016 13:51:00 06/25/2016 13:51 :00 DIS Outpatient [facility] OTHER [id number] 04/03/2016 18:02:00 04/03/2016 18:02 :00 DIS Outpatient [facility] OTHER [id number] 04/21/2018 15:16:00 Document Registration [id number] 03/10/2018 12:56:00 Document Registration [id number] 02/04/2018 16:41:00 Document Registration [id number] 02/05/2018 12:52:48 02/05/2018 12:5 2:48 DIS Outpatient [facility] [id number] 01/29/2020 08:03:00 06/05/2 020 14:02:00 DIS Outpatient RON GILBERTO [facility] PREOP VAGINAL LESION [id number] 07/02/2019 08:18:00 14:20:00 DIS Outpatient ANAMARIA PACK MD [facility] CHRONIC SINUSITIS [id number] 06/23/2019 08:25:00 09:19:00 DIS Outpatient ANAMARIA PACK MD [facility] PREOP CHRONIC SINUSITIS [id number] 05/19/2019 22:36:00 00:37:00 DIS Emergency EDDIE BAIN, RICHI Sanchez [facility] ER CHEST PAIN [id number] 02/21/2019 20:32:00 22:46:00 DIS Emergency LISA DO IAN Guillaume Annabel a [facility] ER FALL [id number] 01/07/2019 12:12:00 15:45:00 DIS Outpatient JULIA GUTIÉRREZ MD [facility] ENDO SCREENING/REFLUX/CHEST PAIN [id number] 01/02/2019 05:38:00 13:05:00 DIS Outpatient JULIA GUTIÉRREZ MD [facility] PREOP COLONOSCOPY/EGD [id number] 12/04/2018 08:46:00 23:59:59 CLS Outpatient ANAMARIA PACK MD [facility] RAD CHRONIC SINUSITIS [id number] 10/12/2018 19:15:00 21:58:00 DIS Emergency TAM EPPERSON [facility] ER FALL [id number] 07/14/2018 12:40:00 13:31:00 DIS Outpatient ROSI HUTCHISON DO [facility] Z45.2 [id number] 07/14/2018 11:59:00 11:59:00 CAN Preadmit ROSI HUTCHISON DO [facility] UTI [id number] 07/10/2018 18:36:00 11/15/2 018 20:15:00 DIS Emergency IAN GONZALEZ DO a [facility] ER FALL [id number] 07/02/2018 09:03:00 23:59:59 CLS Outpatient PIERRE DE LA VEGA MD [facility] CARD HTN [id number] 06/29/2018 16:46:00 23:59:59 CLS Emergency PRIYA ROUSE APRN [facility] ER CP [id number] 06/26/2018 17:59:00 21:58:00 DIS Emergency PERFECTO MARVIN [facility] ER FALL [id number] 06/21/2018 18:26:00 19:50:00 DIS Emergency PRIYA ROUSE APRN [facility] ER CP [id number] 06/18/2018 10:24:00 16:15:00 DIS Outpatient PIERRE DE LA VEGA MD [facility] CATH ABN STRESS [id number] 06/16/2018 08:16:00 23:59:59 CLS Outpatient PIERRE DE LA VEGA MD [facility] CARD HTN [id number] 06/08/2018 19:34:00 21:20:00 DIS Emergency TAM EPPERSON [facility] ER FALL [id number] 05/30/2018 16:35:00 17:56:00 DIS Emergency PRIYA ROUSE APRN [facility] ER FALL [id number] 05/23/2018 18:33:00 19:54:00 DIS Emergency PRIYA ROUSE APRN [facility] ER CHEST PAIN L SIDE [id number] 05/12/2018 18:47:00 018 22:06:00 DIS Emergency PRIYA ROUSE APRN [facility] ER CHEST PAIN [id number] 05/11/2018 20:56:00 018 22:49:00 DIS Emergency TAM EPPERSON [facility] ER NECK PAIN [id number] 05/10/2018 19:09:00 018 21:49:00 DIS Emergency PRIYA ROUSE APRN [facility] ER GENERAL [id number] 05/05/2018 19:57:00 018 21:14:00 DIS Emergency TAM EPPERSON [facility] ER L KNEE PAIN [id number] 05/02/2018 20:10:00 018 00:07:00 DIS Emergency EDEL ANTHONY MD [facility] ER CP [id number] 02/02/2020 06:09:[address] Outpatient GILBERTO VELASQUEZ DO [facility] VAGINAL LESION [id number] 10/13/2019 13:36:02 10/13/2019 23:59: 59 CLS Outpatient Janessa Rene [id number] 05/13/2014 14:35:00 05/13/2014 14:35 :00 DIS Outpatient BEATRICE FRY [facility] ORTHO [id number] 04/22/2014 14:34:00 04/22/2014 14:34 :00 DIS Outpatient BEATRICE FRY [facility] ORTHO [id number] 09/10/2016 00:24:00 017 03:28:00 DIS Emergency ANDREW SULTANA [facility] ER CHEST DISCOMFORT [id number] 08/05/2016 20:05:00 23:59:59 [facility] [id number] 08/05/2016 20:05:00 22:40:00 DIS Emergency MEME MILLS [facility] ER FALL [id number] 07/31/2016 19:09:00 22:30:00 DIS Emergency NICK BAIN [facility] ER FALL [id number] 07/19/2016 22:07:00 00:45:00 DIS Emergency [facility] ER R KNEE PAIN [id number] 07/16/2016 21:22:00 016 22:35:00 DIS Emergency CECILIA IAN [facility] ER FALL [id number] 04/25/2016 12:21:00 016 23:59:59 CLS Outpatient DORENECORNELIABABAK Contreras [facility] NPLAB [id number] 04/18/2016 14:25:00 016 16:05:00 DIS Emergency NICK BAIN [facility] ER BACK PAIN [id number] 04/17/2016 07:15:00 016 08:07:00 DIS Emergency IAN BROOKS [facility] ER BACK PAIN [id number] 02/17/2018 15:52:00 Document Registration [id number] 02/17/2018 13:11:00 Document Registration [id number] 06/29/2016 22:15:00 Document Registration [id number] 03/06/2016 08:34:00 Document Registration [id number] 02/20/2016 09:23:00 Document Registration [id number] 02/06/2016 08:43:00 Document Registration [id number] 02/01/2016 09:28:00 Document Registration [id number] 01/30/2016 09:56:00 Document Registration [id number] 01/24/2016 14:29:00 Document Registration [id number] 01/18/2016 10:02:00 Document Registration [id number] 01/17/2016 09:44:00 Document Registration [id number] 01/16/2016 08:27:00 Document Registration [id number] 01/13/2016 10:10:00 Document Registration [id number] 01/09/2016 11:09:00 Document Registration [id number] 01/04/2016 08:29:00 Document Registration [id number] 01/02/2016 13:29:00 Document Registration [id number] 12/29/2015 15:42:00 Document Registration [id number] 12/06/2015 05:08:00 Document Registration [id number] 12/03/2015 21:25:00 Document Registration [id number] 11/30/2015 21:48:00 Document Registration [id number] 11/27/2015 21:00:00 Document Registration [id number] 11/25/2015 23:58:00 Document Registration [id number] 11/21/2017 06:09:00 Document Registration
[2020-02-02] MEDS ORDERED: LACTATED RINGERS 1,000 ML IV PRN (06:47)
[2020-02-02] MEDS ORDERED: ROCURONIUM 10 MG/ML 5 ML SYRINGE IV ONE (06:51)
[2020-02-02] MEDS ORDERED: ONDANSETRON 4 MG/2 ML (SDV) Z0FRAN ONE (06:51)
[2020-02-02] MEDS ORDERED: proPOfol 200 MG/20 ML (DIPRIVAN) VIAL IV ONE (06:51)
[2020-02-02] MEDS ORDERED: fentaNYL INJECTION 100 MCG/2 ML AMP ONE ×3 (06:52→11:06)
[2020-02-02] MEDS ORDERED: MIDAZOLAM 2 MG/2 ML (VERSED) VIAL ONE (06:52)
[2020-02-02] MEDS ORDERED: LIDOCAINE PF 2% 5 ML (XYLOCAINE) VIAL ONE (06:53)
[2020-02-02] MEDS ORDERED: FAMOTIDINE 20MG/2ML IV (PEPCID) IV ONE (07:00)
[2020-02-02] MEDS ORDERED: VANCOMYCIN INJECTION 1,000 MG in NS (IVPB) 250 ML IV ONE (07:00)
[2020-02-02] MEDS ORDERED: FAMOTIDINE 20MG/2ML IV (PEPCID) ONE (07:14)
[2020-02-02] MEDS ORDERED: BUP/EPI 0.5% 1:200,000 (SENSORCAINE) 30 ML VIAL ONE (07:39)
--- NOTE | 2020-02-02 07:46 | Progress Note-Pre Operative ---
Pre-Operative Progress Note H&P Reviewed The H&P was reviewed, patient examined and no changes noted. Date Seen by Provider: Feb 02, 2020 Time Seen by Provider: 07:50 Date H&P Reviewed: Feb 02, 2020 Time H&P Reviewed: 07:40 Pre-Operative Diagnosis: vaginal bleeding, unable to tolerate in office GILBERTO VELASQUEZ DO Feb 02, 2020 07:46
--- NOTE | 2020-02-02 08:00 | NUR ---
dr andersen here to see pt. pt responds readily to voice greeting.
[2020-02-02] MEDS ORDERED: ESTRADIOL VAGINAL CREAM 42.5 GM (ESTRACE) VG ONE (08:42)
[2020-02-02] MEDS ORDERED: SEVOFLURANE (ULTANE) 15 ML INHAL SOLN ONE (09:04)
--- NOTE | 2020-02-02 09:14 | Operative Report ---
Operative Report Date of Procedure/Surgery Feb 02, 2020 Surgeon (s) GILBERTO VELASQUEZ DO Anesthesia Director (s): n Post-Operative Diagnosis postmenopausal bleeding, possible cervical remnant, left vaginal lesion bilateral periurethral superficial tears. Procedure Performed Exam under anesthesia, biopsy of vaginal lesion, vaginal and wound culture wound care consult Description of Procedure Anesthesia Type: General (LMA) Estimated blood loss (mL): none Specimen(s) collected/removed vaginal biopsy Pap smear vaginal and wound culture Description of the Procedure With informed consent the patient was taken to the operating room where general anesthesia was found to adequate. She was prepped and draped. She has a 4x5 cm lesion inthe right innder thigh region. This appears clean and with some granulation tissue. I will have the wound care team come see this at the end of the procedure. a wound culture was taken. She also has evidence of some intertrigal navjot. In addition there are bilateral periurethral tears. These are superficial but are bleeding with touch. These were cultured. There was a firm mass noted in the office but the patient could not tolerate the exam. Once a speculum was placed, this is smooth and appears to be a cervical remnant. a pap of this was done as she has not had one, as she was told her cervix was removed. The lesion on the left vaginal wall is about 5 mm. It was elevated and biopsied off the wall after injecting with Marcaine. I used the cautery/bovie to remove this at the skin. It is cystic and superficial. The base was cauterized and treated with AgNo3. After the procedure, the vagina was filled with estrace cream. Most of the findings are consistent with a postmenopausal vagina with atrophic changes. Will await culture, wound care and biopsy results. There was minimal to no blood loss. The patient was awakened and taken to recovery in a stable condition. Findings of the Procedure 2x3 mm lesion on the left vaginal wall, bleeding bilateral superficial periurethral tears 5x2 cm wound (chronic) in the right intertriginous area probably intertriginal candidiasis. Allergies and Home Medications Allergies Coded Allergies: Cephalosporins (Verified Allergy, Unknown, 02/21/19) Penicillins (Verified Allergy, Unknown, 02/21/19) Sulfa (Sulfonamide Antibiotics) (Verified Allergy, Unknown, 02/21/19) aspirin (Verified Allergy, Unknown, 02/21/19) cephalexin (Verified Allergy, Unknown, 02/21/19) codeine (Verified Allergy, Unknown, 02/21/19) diphenhydramine (Verified Allergy, Unknown, 02/21/19) erythromycin base (Verified Allergy, Unknown, 02/21/19) iodine (Verified Allergy, Unknown, 02/21/19) ketorolac (Verified Allergy, Unknown, 02/21/19) morphine (Verified Allergy, Unknown, 02/21/19) propoxyphene (Verified Allergy, Unknown, 02/21/19) tetracycline (Verified Allergy, Unknown, 02/21/19) Home Medications Albuterol Sulfate 1 Puff Puff, 2 PUFF IH TID PRN for SHORTNESS OF BREATH, (Reported) 1 PUFF = 90 MCG Benzocaine/Menthol 78 Gm Aerosol, 78 GM TP QID PRN for pain Prescribed by: GILBERTO VELASQUEZ on 02/02/20952 Buspirone HCl 15 Mg Tablet, 15 MG PO BID, (Reported) Calcium Carbonate 200 Mg Tab.chew, 400 MG PO BID PRN for INDIGESTION, (Reported) Carvedilol 6.25 Mg Tablet, 6.25 MG PO BID, (Reported) HOLD FOR SBP<100 OR PULSE <60 Cetirizine HCl 10 Mg Tablet, 10 MG PO DAILY, (Reported) Cranberry Extract 500 Mg Tablet, 1,000 MG PO BID, (Reported) Divalproex Sodium 500 Mg Tab.er.24h, 500 MG PO HS, (Reported) Dulaglutide 0.75 Mg/0.5 Ml Pen.injctr, 0.75 MG SQ WEEK, (Reported) Duloxetine HCl 60 Mg Capsule.dr, 60 MG PO BID, (Reported) Estradiol 42.5 Gm Cream.appl, 1 GM VG HS Prescribed by: GILBERTO VELASQUEZ on 02/02/20 09 Fluconazole 150 Mg Tablet, 150 MG PO Q3D Prescribed by: GILBERTO VELASQUEZ on 02/02/20952 Gabapentin 600 Mg Tablet, 600 MG PO BID, (Reported) Gabapentin 300 Mg Capsule, 300 MG PO DAILY@1700, (Reported) Hydroxyzine HCl 25 Mg Tablet, 25 MG PO BID, (Reported) L. Acidophilus/Pectin, [place] 1 Each Capsule, 1 EACH PO BID, (Reported) Levofloxacin 250 Mg Tablet, 250 MG PO DAILY@1100 Prescribed by: GILBERTO VELASQUEZ on 02/02/20941 Levothyroxine Sodium 300 Mcg Tablet, 300 MCG PO DAILY, (Reported) Mag Hydrox/Al Hydrox/Simeth 30 Ml Oral.susp, 30 ML PO Q4H PRN for INDIGESTION, (Reported) Mirabegron 25 Mg Tab.er.24h, 25 MG PO DAILY, (Reported) Montelukast Sodium 10 Mg Tablet, 10 MG PO HS, (Reported) Olanzapine 10 Mg Tablet, 10 MG PO HS, (Reported) Pantoprazole Sodium 40 Mg Tablet.dr, 40 MG PO DAILY, (Reported) Primidone 50 Mg Tablet, 25 MG PO HS, (Reported) Rivaroxaban 20 Mg Tablet, 20 MG PO HS, (Reported) Rosuvastatin Calcium 20 Mg Tablet, 20 MG PO HS, (Reported) Sodium Chloride/Aloe Vera 14.1 Gm Gel..gram., 1 GM TP DAILY PRN for DRY NOSE, (Reported) Sucralfate 1 Gm Tablet, 1 GM PO QID, (Reported) Topiramate 100 Mg Tablet, 100 MG PO BID, (Reported) Tramadol HCl 50 Mg Tablet, 100 MG PO HS, (Reported) take 2 (50mg) Tabs Vitamin A & D 60 Gm Oint, 0 GM TOP BID apply to legs bid Prescribed by: GILBERTO VELASQUEZ on 02/02/20941 Zinc Oxide 57 Gm Oint...g., 0 GM TOP TID PRN for open wound apply to right leg wound tid Prescribed by: GILBERTO VELASQUEZ on 02/02/20941 Patient Home Medication List Home Medication List Reviewed: GILBERTO Murillo DO Feb 02, 2020 09:14
[2020-02-02] MEDS ORDERED: morphine INJ 10 MG/ML 1ML (SYR OR VIAL) ONE (09:29)
[2020-02-02] MEDS ORDERED: fentaNYL INJECTION 100 MCG/2 ML AMP IVP ONE ×2 (09:30→11:00)
[2020-02-02] MEDS ORDERED: A & D OINT 113 GM TUBE TOP PRN (09:30)
[2020-02-02] MEDS ORDERED: ONDANSETRON 4 MG/2 ML (SDV) Z0FRAN IVP PRN (09:30)
[2020-02-02] MEDS ORDERED: ZINC OXIDE 40% (Butt Paste MAX/Desitin) 57 gm TOP PRN (09:30)
[2020-02-02] MEDS ORDERED: LEVOFLOXACIN 250 MG/50 ML IVPB 50 ML IV ONE (09:30)
--- NOTE | 2020-02-02 09:30 | Discharge Inst-Women's Service ---
Discharge Inst-Women's Serv Depart Medication/Instructions Instructions apply kane butt cream tid to the right inner thigh wound apply a&d ointment twice daily to the legs (dryness) apply 1 gram nightly vaginally of the estrogen cream (can wait until you follow up in the office to start this if desired) Final Diagnosis vaginal lesion postmenopausal bleeding cervical remnant bilateral periurethral lesions right inner thigh wound (chronic) Problems Reviewed?: Yes Consults/Follow Up Additional Follow Up: Yes (1-2 weeks in the office with Dr. Howard; call wound care office [phone] to set up follow up teleheath appointment with Dr. Calderon) Activity Activity: Activity as Tolerated NO SMOKING: NO SMOKING Nothing Inside Vagina: No Douching, No Shafer, No Tampons Diet Discharge Diet: No Restrictions Symptoms to Report to : Pain Increased, Fever Over 101 Degrees F, Vaginal Bleeding Increase, Vaginal Discharge Foul For Any Problems or Questions: Contact Your Physician Skin/Wound Care Bathing Instructions: GILBERTO Guthrie DO Feb 02, 2020 09:29
[2020-02-02] MEDS ORDERED: LEVO250T46 PO (09:42)
[2020-02-02] MEDS ORDERED: ZINC57OI6 TOP (09:42)
[2020-02-02] MEDS ORDERED: AD60O TOP (09:42)
[2020-02-02] MEDS ORDERED: ESTR42.52 VG (09:42)
--- NOTE | 2020-02-02 09:46 | NUR ---
WAS SEEN IN PACU BY WOUND CARE.
[2020-02-02] MEDS ORDERED: BENZ78AE2 TP (09:53)
[2020-02-02] MEDS ORDERED: FLUC150T PO (09:53)
[2020-02-02] MEDS ORDERED: LEVOFLOXACIN 250 MG/50 ML IVPB 50 ML ONE (10:24)
[2020-02-02] MEDS ORDERED: LEVOFLOXACIN 250 MG TAB (LEVAQUIN) PO SCH (11:00)
--- NOTE | 2020-02-02 12:13 | NUR ---
IV DC'D DISCHARGE INSTRUCTIONS GIVEN, VERBALLY ET PRINTED, SCRIPTS GIVEN. HAVE CALLED HER CARE FACILITY AND WE ARE WAITING THEIR ARRIVAL, THEY WILL TRANSPORT HER HOME. SHE HAS HER ESTROGEN CREAM, HER 3 RINGS, HER DISCHARGE INSTRUCTIONS, SHE HAS VOIDED AND SELF DRESSED IN STREET CLOTHES, UP IN W/C IN ROOM.
[2020-02-02] MEDS ORDERED: ESTRADIOL VAGINAL CREAM 42.5 GM (ESTRACE) VG SCH (21:00)
--- NOTE | 2020-02-02 21:17 | Wound Care Assessment ---
Wound Care Assessment Date Seen by Provider: Feb 02, 2020 Time Seen by Provider: 09:30 Chief Complaint R thigh ulcer. HPI The patient is a 64 year old female undergoing evaluation and treatment for a vaginal lesion by Dr. Howard, who requested a perioperative consult in regards a R inner thigh ulcer. This is approximately 3.0 x 5.0 cm and located in crease in the medial thigh of this morbidly obese female. She has had a lot of vaginal drainage, which may have contributed to the development of this Moisture Associated Skin Damage. It appears to be full thickness. Cleaning with soap and water, application of Panfilo's Butt Paste TID, and Telehealth follow-up through [facility] are recommended. Smoking Status: Current Everyday Smoker Recreational Drug Use: No Alcohol Use: Denies Use Review of Systems Musculoskeletal: leg pain Exam Vital Signs Date Time Temp Pulse Resp B/P (MAP) Pulse Ox O2 Delivery O2 Flow Rate FiO2 02/02/20 12:37 36.2 84 20 141/92 96 Nasal Cannula 2.00 Capillary Refill : General Appearance: no apparent distress Extremities: other (Macerated R thigh skin in intertriginous area of medial upper thigh due to obesity and moisture.) Results Laboratory Tests 02/02/20 07:21: Glucometer 119H Assessment/Plan/Dx 1. Moisture Associated Skin Damage, R medial thigh, partial thickness. 2. Morbid obesity, limited mobility. Plan: Soap, Water, Pat dry, Panfilo's Butt Paste TID recommended. Would be able to follow as needed with Telehealth upon return to LTC facility. ANAMARIA SCOTT MD Feb 02, 2020 21:17
--- NOTE | 2020-02-04 07:36 | Anesthesia-General Post-Op ---
General Significant Intra-Op Events Notes late entry from 02/02/20 @1130 Patient Condition Mental Status/LOC: Same as Preop Cardiovascular: Satisfactory Nausea/Vomiting: Absent Respiratory: Satisfactory Pain: Controlled Complications: Absent Post Op Complications Complications None Follow Up Care/Instructions Patient Instructions None needed. Anesthesia/Patient Condition Patient Condition Patient is doing well, no complaints, stable vital signs, no apparent adverse anesthesia problems. No complications reported per nursing. STEVE LARSON CRNA Feb 04, 2020 07:36
== END 2020-02-02 12:51 | disposition home or self-care (01) ==
LOC: SDC 06:09
PROVIDERS: ATTEND Obstetrics & Gynecology
DX: N95.0 Postmenopausal bleeding (principal); L03.115 Cellulitis of right lower limb; S37.33XA Laceration of urethra, initial encounter; Z68.43 Body mass index [BMI] 50.0-59.9, adult; E66.01 Morbid (severe) obesity due to excess calories; E11.9 Type 2 diabetes mellitus without complications; L97.119 Non-pressure chronic ulcer of right thigh with unspecified severity; J44.9 Chronic obstructive pulmonary disease, unspecified; G47.30 Sleep apnea, unspecified; I10 Essential (primary) hypertension; Z86.718 Personal history of other venous thrombosis and embolism; Z90.710 Acquired absence of both cervix and uterus
CPT/HCPCS: 82962; 87070; 87075; 87077; 87081; 87101; 87186; 87205; 88305